=== PATIENT | female | born 1970 | race Hispanic/Latino ===

== ENCOUNTER 2018-08-30 08:37 | Day surgery (SDC) | payer OTHER ==
--- OUTSIDE RECORDS SUMMARY | 2018-08-30 08:40 | XMS REPORT ---
:1970 [facility] Address [address] [place] [address] Dr. Ragland [address] [place] [id number] Care Team Providers Name Role Phone Unavailable Unavailable Unavailable Problems This patient has no known problems. Allergies, Adverse Reactions, Alerts This patient has no known allergies or adverse reactions. Medications This patient has no known medications.
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
--- OUTSIDE RECORDS SUMMARY | 2018-08-30 08:40 | XMS REPORT ---
:1970 Author Organization eClinicalWorks Care Team Providers Name Role Phone Papito See Provider Role Unavailable Allergies, Adverse Reactions, Alerts Substance Reaction Event Type PCN Info Not Available Drug Allergy Problems Problem Type Condition Code Onset Dates Condition Status Assessment Acute cystitis without hematuria N30.00 Active Assessment Tobacco use disorder F17.200 Active Assessment BMI 22.0-22.9, adult Z68.22 Active Assessment Screening mammogram, encounter for Z12.31 Active Problem Tobacco use disorder F17.200 Active Problem Osteoarthritis of knee, unspecified M17.10 Active laterality, unspecified osteoarthritis type Problem Insomnia G47.00 Active Assessment Well adult on routine health check Z00.00 Active Assessment Need for influenza vaccination Z23 Active Problem Vaginal mass N94.89 Active Medications Medication Code Code Instructions Start End Date Status Dosage System Date Macrobid [facility] 53688895981 100 MG Orally Jun 19, Jun 04, Active 1 capsule every 12 hrs 2018 2018 with food Duexis [facility] 13456699674 800-26.6 MG Jun 19July 19, Active 1 tablet Orally Three 2019 2019 times a day Results Name Result Date Reference Range Unit Abnormality Flag Urine Dip Stick ----Appearance yellow clear 20180619 ----SP. Gr 1.010 20180619 ----pH 7.0 20180619 ----Ketone Neg 20180619 ----Glucose Neg 20180619 ----Blood Neg 20180619 ----Protein Neg 85655259 ----Nitrite Neg [id number] ----Leukocytes Neg [id number] Immunizations Vaccine Administration Date Afluria Jun 19, 2018 Summary Purpose eClinicalWorks Submission
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
--- OUTSIDE RECORDS SUMMARY | 2018-08-30 08:40 | XMS REPORT ---
:1970 Author Organization eClinicalWorks Care Team Providers Name Role Phone Papito See Provider Role Unavailable Allergies No Known Allergies Problems Problem Type Condition Code Onset Dates Condition Status Problem Insomnia G47.00 Active Problem Tobacco use disorder F17.200 Active Problem Severe anxiety with panic F41.0 Active Problem Osteoarthritis of knee, unspecified M17.10 Active laterality, unspecified osteoarthritis type Problem Vaginal mass N94.89 Active Medications No Known Medications Results No Known Results Summary Purpose eClinicalWorks Submission
--- OUTSIDE RECORDS SUMMARY | 2018-08-30 08:40 | XMS REPORT ---
:1970 Author Organization eClinicalWorks Care Team Providers Name Role Phone Hugo Graham Provider Role Unavailable Allergies No Known Allergies Problems Problem Type Condition Code Onset Dates Condition Status Problem Gastritis, presence of bleeding K29.70 Active unspecified, unspecified chronicity, unspecified gastritis type Problem Severe anxiety with panic F41.0 Active Problem Gastritis without bleeding, K29.70 Active unspecified chronicity, unspecified gastritis type Problem Insomnia G47.00 Active Problem Vaginal mass N94.89 Active Problem Tobacco use disorder F17.200 Active Problem Osteoarthritis of knee, unspecified M17.10 Active laterality, unspecified osteoarthritis type Medications No Known Medications Results No Known Results Summary Purpose [employer] Submission
--- OUTSIDE RECORDS SUMMARY | 2018-08-30 08:40 | XMS REPORT ---
:1970 Author Organization eClinicalWorks Care Team Providers Name Role Phone Esa Papito Provider Role Unavailable Allergies, Adverse Reactions, Alerts Substance Reaction Event Type PCN Info Not Available Drug Allergy Problems Problem Type Condition Code Onset Dates Condition Status Assessment Dysuria R30.0 Active Assessment Screening for STD (sexually Z11.3 Active transmitted disease) Problem Tobacco use disorder F17.200 Active Problem Osteoarthritis of knee, unspecified M17.10 Active laterality, unspecified osteoarthritis type Problem Insomnia G47.00 Active Assessment Influenza-like illness R69 Active Assessment Acute non-recurrent frontal J01.10 Active sinusitis Problem Vaginal mass N94.89 Active Medications Medication Code Code Instructions Start End Date Status Dosage System Date Azithromycin [facility] 15969715463 250 MG Orally Apr 30, May 05, Active 2 tablets Once a day 2017 2017 on the first day, then 1 tablet daily for 4 days Results Name Result Date Reference Range Unit Abnormality Flag URINALYSIS AUTO W/O SCOPE ----Blood (Non-Hemolyzed) Trace 20180430 ----Ketones Neg 20180430 ----Glucose (mg/dL) Neg 20180430 ----Protein (mg/dL) Neg 20180430 ----Specific Sharon 1.010 20180430 ----pH 6.0 20180430 ----Leukocytes Neg 20180430 ----Nitrite Neg 20180430 STREP A RAPID ----Result Negative 20180430 Summary Purpose eClinicalWorks Submission
--- OUTSIDE RECORDS SUMMARY | 2018-08-30 08:40 | XMS REPORT ---
:1970 Author Organization eClinicalWorks Care Team Providers Name Role Phone Hugo Graham Provider Role Unavailable Allergies, Adverse Reactions, Alerts Substance Reaction Event Type PCN Info Not Available Drug Allergy Problems Problem Type Condition Code Onset Dates Condition Status Assessment Gastritis without bleeding, K29.70 Active unspecified chronicity, unspecified gastritis type Assessment Vomiting, intractability of R11.10 Active vomiting not specified, presence of nausea not specified, unspecified vomiting type Assessment Epigastric abdominal pain R10.13 Active Problem Gastritis, presence of [...] Start End Date Status Dosage System Date Ondansetron HCl [facility] 00014882464 8 MG Orally Active as directed Famotidine [facility] 46526164383 20 MG Orally Active 1 tablet at Once a day bedtime Alprazolam ND 65313180299 0.25 MG Orally Active 1 tablet Twice a day PRN SEVERE ANXIETY Zoloft ND 22103741210 50 MG Orally Active 1 tablet Once a day Tramadol HCl ND 98903986184 50 MG Orally Active as directed Omeprazole ND 48698862082 40 MG Orally August Active 1 capsule Twice a day 2018 Protonix ND 12196843986 40 MG Orally August Active 1 tablet Once a day 2018 Probiotic [facility] 03109959238 - Orally Active as directed Carafate [facility] 38157657047 1 GM Orally August Active 1 tablet on Twice a day 2018 an empty stomach Dicyclomine HCl ND 83778079700 10 MG Orally Active 1 tablet Once a day Results No Known Results Summary Purpose eClinicalWorks Submission
--- OUTSIDE RECORDS SUMMARY | 2018-08-30 08:40 | XMS REPORT ---
:1970 Author Organization eClinicalWorks Care Team Providers Name Role Phone Papito See Provider Role Unavailable Allergies No Known Allergies Problems Problem Type Condition Code Onset Dates Condition Status Problem Tobacco use disorder F17.200 Active Problem Osteoarthritis of knee, unspecified M17.10 Active laterality, unspecified osteoarthritis type Problem Insomnia G47.00 Active Assessment Acute sinusitis, recurrence not J01.90 Active specified, unspecified location Problem Vaginal mass N94.89 Active Medications Medication Code Code Instructions Start End Date Status Dosage System Date Duexis [facility] 46008873569 800-26.6 MG Jun 19July 19, Active 1 tablet Orally Three 2018 2018 times a day Zithromax [facility] 86226155338 250 MG Orally Jul 15July 20, Active 2 tablets Once a day 2018 2018 on the first day, then 1 tablet daily for 4 days Results Name Result Date Reference Range Unit Abnormality Flag FLU TEST ----A Neg 20180715 ----B Neg [id number] STREP A RAPID ----Result Neg [id number] Summary Purpose eClinicalWorks Submission
[2018-08-30] MEDS ORDERED: Ringers Lactate 1,000 ML IV ONE (09:10)
[2018-08-30] MEDS ORDERED: FENTANYL CITR 100 MCG/2 ML ONE (09:38)
[2018-08-30] MEDS ORDERED: PROPOFOL 200 MG/20 ML VIAL IV ONE (09:38)
[2018-08-30] MEDS ORDERED: LIDOCAINE 1% MPF 2 ML AMPULE ONE (09:39)
--- NOTE | 2018-08-30 09:46 | ENDO RPT ---
[address], [address] EGD PROCEDURE REPORT EXAM DATE: 08/30/2018 PATIENT NAME: Stephania Lobo MR#: [id number] BIRTHDATE: 1970 ATTENDING: Hugo Graham DR STATUS: outpatient PAINT AND TABLE EDGER: Nadege Byrne RN and Luis Del Cid [facility] INDICATIONS: The patient is a 48 yr old Female here for an EGD due to epigastric pain and GERD PROCEDURE PERFORMED: EGD with biopsy for H. pylori MEDICATIONS: Per Anesthesia. TOPICAL ANESTHETIC: none CONSENT: The patient understands the risks and benefits of the procedure and understands that these risks include, but are not limited to: sedation, allergic reaction, infection, perforation and/or bleeding. Alternative means of evaluation and treatment include, among others: physical exam, x-rays, and/or surgical intervention. The patient elects to proceed with this endoscopic procedure. DESCRIPTION OF PROCEDURE: During intra-op preparation period all mechanical medical equipment was checked for proper function. Hand hygiene and appropriate measures for infection prevention was taken. Procedure, possible complications, and alternatives including but not limited to the possibility of bleeding, perforation, tear, infection, sepsis, need for surgery, need for blood transfusion, and anesthesia related complications were explained to the patient. After the risks, benefits and alternatives of the procedure were thoroughly explained, Informed consent was verified, confirmed and timeout was successfully executed by the treatment team. The patient was placed in the left lateral position. The patient was anesthetized with topical anesthesia. Through the anesthetized oropharyngeal area, the scope was passed without any difficulty. The Pentax [id number] ([id number]) endoscope was introduced through the mouth and advanced to the second portion of the duodenum. Retroflexed views revealed a small hiatal hernia. The gastroscope was then slowly withdrawn and removed. Mild Atrophic gastritis was found in the body and the antrum of the stomach. A biopsy for H. pylori was taken. An erosion was found at the pylorus. A biopsy for H. pylori was taken. A small hiatal hernia was found ADVERSE EVENTS: There were no complications. IMPRESSIONS: 1. Mild Atrophic gastritis was found in the body and the antrum of the stomach 2. An erosion was found at the pylorus 3. A small hiatal hernia was found RECOMMENDATIONS: 1. acid suppression therapy 2. anti-reflux regimen 3. await biopsy results 4. follow-up: office 2 week(s) 5. avoid NSAIDS 6. follow-up of helicobacter pylori status, treat if indicated REPEAT EXAM: Hugo Graham DR eSigned: Hugo Graham DR 08/30/2018 9:45 AM cc: CPT CODES: ICD9 CODES: PATIENT NAME: Stephania LoboGary MR#: [id number]
[2018-08-30 10:26] VITALS: BP 121/70; TEMP 98.3; O2SAT 100
== END 2018-08-30 10:21 | disposition home or self-care (01) ==
LOC: OR 08:37
PROVIDERS: ATTEND Surgery
PROC: 0DB78ZX Excision of Stomach, Pylorus, Via Natural or Artificial Opening Endoscopic, Diagnostic (ICD-10-PCS; 2018-08-30)
PROC: 0DB68ZX Excision of Stomach, Via Natural or Artificial Opening Endoscopic, Diagnostic (ICD-10-PCS; 2018-08-30)
PROC: 0DB98ZX Excision of Duodenum, Via Natural or Artificial Opening Endoscopic, Diagnostic (ICD-10-PCS; principal; 2018-08-30 10:00)
DX: K29.50 Unspecified chronic gastritis without bleeding (principal); K44.9 Diaphragmatic hernia without obstruction or gangrene; K25.9 Gastric ulcer, unspecified as acute or chronic, without hemorrhage or perforation; F17.200 Nicotine dependence, unspecified, uncomplicated
CPT/HCPCS: 88305; 88312; J2001; J2704; J3010

== ENCOUNTER 2020-07-01 08:18 | Emergency (ER) | payer OTHER, SELFPAY ==
[2020-07-01] MEDS ORDERED: CEFTRIAXONE/SWI 1gm 1 GM/10 ML SYR ONE (09:04)
[2020-07-01] MEDS ORDERED: NA CHLORIDE 0.9% 500 ML ONE (09:04)
[2020-07-01] MEDS ORDERED: MORPHINE 2 MG/ML SYR ONE (09:04)
[2020-07-01] MEDS ORDERED: ONDANSETRON 4 MG/2 ML VIAL ONE (09:04)
[2020-07-01 09:15] LABS: Absolute Lymphocytes (CBC) 2.9 K/uL (0.7-4.9); Basophils % 0.4 % (0-1.3); Hematocrit 38.4 % (36.0-45.0); Lymphocytes % 24.1 % (15.3-44.8); MPV 7.7 fL (7.6-11.3)
--- NOTE | 2020-07-01 09:25 | RAD REPORT ---
EXAM DESCRIPTION: CTAbdomen Pelvis W Contrast - 07/01/2020 9:05 am CLINICAL HISTORY: Abdominal pain. ABD PAIN COMPARISON: Abdomen Pelvis W Contrast dated 09/15/2016; CT ABD PELVIS W CONTRAST dated 05/02/2012 TECHNIQUE: Biphasic CT imaging of the abdomen and pelvis was performed with 100 ml non-ionic IV cont rast. All CT scans are performed using dose optimization technique as appropriate and may include automated exposure control or mA/KV adjustment according to patient size. FINDINGS: The lung bases are clear. The liver, spleen, pancreas, adrenal glands and kidneys are within normal limits. No bowel obstruction, free air, free fluid or abscess. Moderate stool is present throughout the colon . The appendix is normal. No evidence of significant lymphadenopathy. No suspicious bony findings. IMPRESSION: No acute intra-abdominal or pelvic finding. Moderate stool is retained throughout the colon.
[2020-07-01 09:46] LABS: Urine Blood TRACE (NEG); Urine Glucose NEGATIVE (NEG); Urine Protein NEGATIVE (NEG); Urine Specific Gravity 1.015 (1.005-1.030)
[2020-07-01 09:49] LABS: BUN Blood Urea Nitrogen 13 mg/dL (7-18); Bicarbonate 27 mmol/L (21-32); Glucose Level 95 mg/dL (74-106); Potassium 3.9 mmol/L (3.5-5.1); Sodium Level 141 mmol/L (136-145)
[2020-07-01 09:55] LABS: Urine Bacteria <20 /HPF (<20); Urine RBC <5 /HPF (NONE SEEN)
[2020-07-01 09:56] LABS: Urine Trichomonas PRESENT (NONE SEEN)
--- NOTE | 2020-07-01 10:05 | EDPHYS ---
Physician Documentation [facility] Name: Stephania Lobo Age: 49 yrs Sex: Female : 1970 Arrival Date: 07/01/2020 Time: 08:20 Bed 6 Private MD: Esa [facility] ED Physician Bronson Guevara HPI: 07/01 08:45 This 49 yrs old Female presents to ER via Ambulatory with complaints of kdr Possible UTI. 08:45 The patient was treated for a UTI about two weeks ago with Cipro but never felt she kdr fully recovered. In the last week, she reports fever (101), shaking chills, nausea, vomiting, low abdomen and bilateral flank pain. Onset: The symptoms/episode began/occurred gradually, 2 week(s) ago. Severity of symptoms: At their worst the symptoms were moderate in the emergency department the symptoms are unchanged. The patient has not experienced similar symptoms in the past. The patient has been recently seen by a physician: the patient's primary care provider, Dr. See. Historical: - Allergies: 08:32 PENICILLINS; aa5 - Home Meds: 08:32 None [Active]; aa5 - PMHx: 08:32 None; aa5 - PSHx: 08:32 Hysterectomy; aa5 - Immunization history:: Adult Immunizations up to date. - Social history:: Smoking status: Patient denies any tobacco usage or history of. ROS: 08:45 Constitutional: Negative for weight loss - has had fever and chills Eyes: Negative for kdr injury, pain, redness, and discharge, ENT: Negative for injury, pain, and discharge, Neck: Negative for injury, pain, and swelling, Cardiovascular: Negative for chest pain, palpitations, and edema, Respiratory: Negative for shortness of breath, cough, wheezing, and pleuritic chest pain, MS/Extremity: Negative for injury and deformity, Skin: Negative for injury, rash, and discoloration, Neuro: Negative for headache, weakness, numbness, tingling, and seizure activity. Psych: Negative for depression, anxiety, suicide ideation, homicidal ideation, and hallucinations, Allergy/Immunology: Negative for hives, rash, and allergies, Endocrine: Negative for neck swelling, polydipsia, polyuria, polyphagia, and marked weight changes, Hematologic/Lymphatic: Negative for swollen nodes, abnormal bleeding, and unusual bruising. 08:45 Abdomen/GI: Positive for abdominal pain, nausea and vomiting, Negative for constipation, abdominal cramps, abdominal distension, anorexia, dysphagia, hematemesis, black/tarry stool, rectal pain, rectal bleeding. 08:45 Back: Positive for pain at rest, of the left mid back and right mid back. 08:45 : Positive for urinary symptoms, flank pain, urinary frequency, small amounts, burning with urination. Exam: 08:45 Constitutional: This is a well developed, well nourished patient who is awake, alert, kdr and in no acute distress. Head/Face: Normocephalic, atraumatic. Eyes: Pupils equal round and reactive to light, extra-ocular motions intact. Lids and lashes normal. Conjunctiva and sclera are non-icteric and not injected. Cornea within normal limits. Periorbital areas with no swelling, redness, or edema. Neck: Trachea midline, no thyromegaly or masses palpated, and no cervical lymphadenopathy. Supple, full range of motion without nuchal rigidity, or vertebral point tenderness. No Meningismus. Chest/axilla: Normal chest wall appearance and motion. Nontender with no deformity. No lesions are appreciated. Cardiovascular: Regular rate and rhythm with a normal S1 and S2. No gallops, murmurs, or rubs. Normal PMI, no JVD. No pulse deficits. Respiratory: Lungs have equal breath sounds bilaterally, clear to auscultation and percussion. No rales, rhonchi or wheezes noted. No increased work of breathing, no retractions or nasal flaring. Skin: Warm, dry with normal turgor. Normal color with no rashes, no lesions, and no evidence of cellulitis. MS/ Extremity: Pulses equal, no cyanosis. Neurovascular intact. Full, normal range of motion. Neuro: Awake and alert, GCS 15, oriented to person, place, time, and situation. Cranial nerves II-XII grossly intact. Motor strength 5/5 in all extremities. Sensory grossly intact. Cerebellar exam normal. Normal gait. Psych: Awake, alert, with orientation to person, place and time. Behavior, mood, and affect are within normal limits. 08:45 Abdomen/GI: Inspection: abdomen appears normal, Bowel sounds: active, Palpation: soft, mild abdominal tenderness, in the suprapubic area, right lower quadrant and left lower quadrant. 08:45 Back: pain, that is mild, of the left mid back and right mid back, CVA tenderness, that is mild, is noted bilaterally. Vital Signs: 08:22 BP 105 / 76; Pulse 78; Resp 16 S; Temp 98.7(O); Pulse Ox 98% on R/A; aa5 09:16 BP 110 / 89; Pulse 68; Resp 16; Pulse Ox 100% on R/A; bp 10:24 BP 97 / 64; Pulse 58; Resp 17; Temp 98; Pulse Ox 100% ; bp MDM: 08:45 Differential Diagnosis sepsis, UTI, Pyelo. Data reviewed: vital signs, nurses notes, kdr lab test result(s), radiologic studies. Counseling: I had a detailed discussion with the patient and/or guardian regarding: the historical points, exam findings, and any diagnostic results supporting the discharge/admit diagnosis, lab results, radiology results. 10:04 Patient medically screened. [facility] 07/01 08:38 Order name: Urine Dipstick--Ancillary (enter results); Complete Time: 09:54 em1 07/01 08:38 Order name: Urine --Ancillary (enter results); Complete Time: 09:54 em1 07/01 08:41 Order name: CBC with Diff kdr 07/01 08:41 Order name: Chem 7; Complete Time: 09:54 kdr 07/01 08:42 Order name: CBC with Automated Diff; Complete Time: 09:54 EDMS 07/01 08:47 Order name: Blood Culture Adult (2) jl7 07/01 08:41 Order name: CT Abd/Pelvis - IV Contrast Only; Complete Time: 09:54 kdr 07/01 09:00 Order name: Strep; Complete Time: 09:54 kdr 07/01 09:03 Order name: Urine Culture bp 07/01 09:03 Order name: Urine Microscopic Only; Complete Time: 10:00 bp 07/01 09:51 Order name: Throat Culture EDMS Administered Medications: 09:10 Drug: morphine 2 mg Route: IVP; Site: right antecubital; bp 09:10 Drug: Zofran (Ondansetron) 4 mg Route: IVP; Site: right antecubital; bp 09:10 Drug: Rocephin 1 grams Route: IV; Rate: calculated rate; Site: right antecubital; bp 09:10 Drug: NS 0.9% 500 ml Route: IV; Rate: bolus; Site: right antecubital; bp 10:10 Drug: Flagyl 2 grams Route: PO; bp 10:23 Follow up: Response: No adverse reaction bp Disposition: 07/01/20 10:04 Discharged to Home. Impression: Urinary tract infection, site not specified, Trichomoniasis, Abdominal and pelvic pain. - Condition is Stable. - Discharge Instructions: Dysuria, Trichomoniasis, Urinary Tract Infection, Adult, Zazs-pr-Hmsd, Abdominal Pain, Adult, [id number]. - Prescriptions for Zofran 4 mg Oral Tablet - take 1 tablet by ORAL route every 4-6 hours As needed; 12 tablet. Tramadol 50 mg Oral Tablet - take 1 tablet by ORAL route every 4-6 hours as needed; 12 tablet. Bactrim DS 800- 160 mg Oral Tablet - take 1 tablet by ORAL route every 12 hours for 10 days; 20 tablet. - Medication Reconciliation Form, Thank You Letter, Antibiotic Education, Prescription Opioid Use, Work release form form. - Follow up: Papito See DO; When: 2 - 3 days; Reason: If symptoms return, Further diagnostic work-up, Recheck today's complaints, Continuance of care, Re-evaluation by your physician. - Problem is new. - Symptoms have improved. Signatures: Dispatcher [employer] EDMS Bronson Guevara MD MD [facility] Mira Marie RN RN aa5 Av Soto RN RN bp Corrections: (The following items were deleted from the chart) 09:47 09:01 Influenza Screen (A \T\ B)+BA.LAB.BRZ ordered. EDMS EDMS 09:47 09:01 CORONAVIRUS+MR.LAB.BRZ ordered. EDMS EDMS 10:26 10:04 07/01/2020 10:04 Discharged to Home. Impression: Urinary tract infection, site bp not specified; Trichomoniasis; Abdominal and pelvic pain. Condition is Stable. Forms are Medication Reconciliation Form, Thank You Letter, Antibiotic Education, Prescription Opioid Use. Follow up: Papito See; When: 2 - 3 days; Reason: If symptoms return, Further diagnostic work-up, Recheck today's complaints, Continuance of care, Re-evaluation by your physician. Problem is new. Symptoms have improved. kdr
--- NOTE | 2020-07-01 10:05 | ER ---
Nurse's Notes [facility] Name: Stephania Lobo Age: 49 yrs Sex: Female : 1970 Arrival Date: 07/01/2020 Time: 08:20 Bed 6 Private MD: Papito See Diagnosis: Urinary tract infection, site not specified;Trichomoniasis;Abdominal and pelvic pain Presentation: 07/01 08:21 Chief complaint: Patient states: "I had a UTI [address] See gave me Cipro aa5 but ever since then I haven't felt back to normal". Pt c/o suprapubic pain radiating around to lower back, chills, fever up to 101.0*F, nausea/vomiting, urinary urgency/frequency/burning. Pt reports taking Ibuprofen today at 0600. 08:21 Coronavirus screen: chills, headache, nausea, vomiting. Ebola Screen: Patient negative aa5 for fever greater than or equal to 101.5 degrees Fahrenheit, and additional compatible Ebola Virus Disease symptoms. Initial Sepsis Screen: Does the patient meet any 2 criteria? No. Patient's initial sepsis screen is negative. Does the patient have a suspected source of infection? Yes:. Risk Assessment: Do you want to hurt yourself or someone else? Patient reports no desire to harm self or others. Onset of symptoms was 2020. 08:21 Acuity: ANA 3 aa5 08:21 Method Of Arrival: Ambulatory aa5 Triage Assessment: 08:30 General: Appears distressed, uncomfortable, Behavior is cooperative, appropriate for bp age, anxious. Pain: Complains of pain in pelvis. EENT: No deficits noted. Neuro: No deficits noted. Cardiovascular: No deficits noted. Respiratory: No deficits noted. GI: No signs and/or symptoms were reported involving the gastrointestinal system. : Reports burning with urination. Derm: No deficits noted. Musculoskeletal: No deficits noted. Historical: - Allergies: 08:32 PENICILLINS; aa5 - Home Meds: 08:32 None [Active]; aa5 - PMHx: 08:32 None; aa5 - PSHx: 08:32 Hysterectomy; aa5 - Immunization history:: Adult Immunizations up to date. - Social history:: Smoking status: Patient denies any tobacco usage or history of. Screenin:30 Abuse screen: Denies threats or abuse. Denies injuries from another. Nutritional bp screening: No deficits noted. Tuberculosis screening: No symptoms or risk factors identified. Fall Risk None identified. Assessment: 08:30 General: SEE TRIAGE NOTE. 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 bp 09:10 Reassessment: No changes from previously documented assessment. Patient and/or family bp updated on plan of care and expected duration. Pain level reassessed. Patient is alert, oriented x 3, equal unlabored respirations, skin warm/dry/pink. PT RETURNED FROM CT. 2ND BLOOD CX SENT, ABX STARTED. 10:24 Reassessment: PT D/C HOME AMBULATORY, DX WITH UTI. bp Vital Signs: 08:22 BP 105 / 76; Pulse 78; Resp 16 S; Temp 98.7(O); Pulse Ox 98% on R/A; aa5 09:16 BP 110 / 89; Pulse 68; Resp 16; Pulse Ox 100% on R/A; bp 10:24 BP 97 / 64; Pulse 58; Resp 17; Temp 98; Pulse Ox 100% ; bp ED Course: 08:20 Patient arrived in ED. ag5 08:20 Papito See DO is Private Physician. ag5 08:21 Arm band placed on Patient placed in an exam room, on a stretcher. aa5 08:27 Av Soto, RN is Primary Nurse. bp 08:27 Bronson Guevara MD is Attending Physician. kdr 08:30 Inserted saline lock: 22 gauge in right antecubital area, using aseptic technique. bp Blood collected. 08:32 Triage completed. aa5 08:39 Patient has correct armband on for positive identification. Bed in low position. Call [facility] light in reach. Side rails up X 1. Pulse ox on. NIBP on. 08:39 Urine collected: clean catch specimen, cloudy. mh5 08:55 Initial lab(s) drawn, by ma, sent to lab. First set of blood cultures drawn by ma, [facility] COVID swab sent to lab. Flu and/or RSV swab sent to lab. Strep swab sent to lab. 09:02 Blood Culture Adult (2) Sent. [facility] 09:02 CBC with Automated Diff Sent. [facility] 09:02 Chem 7 Sent. mh5 09:02 CBC with Diff Sent. [facility] 09:02 Urine --Ancillary (enter results) Sent. [facility] 09:02 Urine Dipstick--Ancillary (enter results) Sent. 5 09:04 Inserted saline lock: 22 gauge in right antecubital area, using aseptic technique. [facility] Blood collected. 09:08 CT Abd/Pelvis - IV Contrast Only In Process Unspecified. EDMS 09:16 Strep Sent. [facility] 10:03 Papito See DO is Referral Physician. kdr 10:25 No provider procedures requiring assistance completed. IV discontinued, intact, bp bleeding controlled, No redness/swelling at site. Pressure dressing applied. Administered Medications: 09:10 Drug: morphine 2 mg Route: IVP; Site: right antecubital; bp 09:10 Drug: Zofran (Ondansetron) 4 mg Route: IVP; Site: right antecubital; bp 09:10 Drug: Rocephin 1 grams Route: IV; Rate: calculated rate; Site: right antecubital; bp 09:10 Drug: NS 0.9% 500 ml Route: IV; Rate: bolus; Site: right antecubital; bp 10:10 Drug: Flagyl 2 grams Route: PO; bp 10:23 Follow up: Response: No adverse reaction bp Outcome: 10:04 Discharge ordered by MD. kdr 10:25 Discharged to home ambulatory. bp 10:25 Condition: stable 10:25 Discharge instructions given to patient, Instructed on discharge instructions, follow up and referral plans. medication usage, Demonstrated understanding of instructions, follow-up care, medications, Prescriptions given X 3. 10:26 Patient left the ED. bp Addendum: 07/04/2020 07:18 Addendum: Culture Results: Positive urine culture. No further action required. Bacteria e b sensitive to prescribed antibiotic. Signatures: Dispatcher [employer] [facility] Bronson Guevara MD MD [facility] Mira Marie, RN RN aa5 Sheridan Zavala [address] S[address], ELAINE RN Lilibeth Davidson Ajare ag5 Corrections: (The following items were deleted from the chart) 07/01 09:47 09:16 CORONAVIRUS+MR.LAB.BRZ drawn and sent. [facility] EDNJ 09:47 09:16 Influenza Screen (A \\T\\ B)+BA.LAB.BRZ drawn and sent. mh5 EDMS 10:25 09:16 Pulse 68bpm; Resp 16bpm; Pulse Ox 100% RA; bp bp
[2020-07-01 10:26] LABS: SARS-COV-2 RT PCR NEGATIVE (NEGATIVE)
[2020-07-01] MEDS ORDERED: metroNIDAZOLE 500 MG TABLET ONE (10:30)
[2020-07-01 10:32] VITALS: O2SAT 100
[2020-07-01 10:33] VITALS: BP 97/64; TEMP 98
== END 2020-07-01 10:26 | disposition home or self-care (01) ==
LOC: ER 08:18
DX: N39.0 Urinary tract infection, site not specified (principal); A59.9 Trichomoniasis, unspecified; Z88.0 Allergy status to penicillin
CPT/HCPCS: 0240U; 36415; 74177; 80048; 81003; 81015; 81025; 82565; 85025; 87040; 87070; 87077; 87081; 87086; 87088; 87186; 96374; 96375; 99284; J0696; J2270; J2405; J7040; Q9967

== ENCOUNTER 2022-12-04 18:02 | Emergency (ER) | payer SELFPAY ==
--- OUTSIDE RECORDS SUMMARY | 2022-12-04 18:07 | XMS REPORT | Continuity of Care Document ---
:1970 Author Organization [facility] t Address [address] [place] [address] [place] [id number] Care Team Providers Name Role Phone JUAN SEE Primary Care Physician Unavailable Juan See Attending Clinician Unavailable Maggie CATHERINE Attending Clinician Unavailable Maggie Schwartz Attending Clinician HOANG ALFARO Attending Clinician Unavailable ALESIA LECHUGA Attending Clinician Unavailable Alesia Lechuga NP Attending Clinician MEHREEN MARIE Attending Clinician Unavailable Mehreen Smith S Attending Clinician RICHARDSON THOMPSON Attending Clinician Unavailable Richardson Thompson DO Attending Clinician Doctor Unassigned, [place] Attending Clinician Unavailable ARIANNE CHILDRESS Attending Clinician Unavailable Arianne Childress MD Attending Clinician RONIT SANTIAGO Attending Clinician Unavailable Ronit Hare Attending Clinician BRENNA SAMUEL Attending Clinician Unavailable Brenna Samuel MD Attending Clinician [phone] ISABELL VALDES Attending Clinician Unavailable DAYANNA HANNON Attending Clinician Unavailable Dayanna Hannon MD Attending Clinician DELL NOBLE Attending Clinician Unavailable Dell Noble MD Attending Clinician DANIEL CHAU Attending Clinician Unavailable Kavon MACHINE I ENGRAVER, Daniel Attending Clinician Jose Juan MACHINE I ENGRAVER, Jennifer Attending Clinician Onur Goldstein MD Attending Clinician Hernan HENRY, Glenis Clifton Attending Clinician Unavailable CLIVE TRAN Attending Clinician Unavailable Manfred BOURGEOIS, Atif Attending Clinician Chelsea MACHINE I ENGRAVER, Clive N Attending Clinician Maddie HENRY, Delia Attending Clinician Unavailable Carlo HENRY, Tessa Attending Clinician Unavailable Isaac Reynolds MD Attending Clinician ALESIA LECHUGA Admitting Clinician Unavailable ARIANNE CHILDRESS Admitting Clinician Unavailable BRENNA SAMUEL Admitting Clinician Unavailable DAYANNA HANNON Admitting Clinician Unavailable DELL NOBLE Admitting Clinician Unavailable Angelita BEARD, Onur Admitting Clinician RICHARDSON THOMPSON Admitting Clinician Unavailable Payers Payer Name Policy Type Policy Number Effective Date Expiration Date S melany ALL MAURO [id number] 2018 00:00:00 [place]ICAID OF [place] [id number] 2022 00:00:00 Problems Condition Condition Condition Status Onset Resolution Last Treating Co mments Source Name Details Category Date Date Treatment Clinician Date History of History of Disease Active 2021-0 U nivers bilateral bilateral 6-14 ity of tubal tubal 00:00: [place] ligation ligation 00 Medica l Branch BMI BMI Disease Active 2021-0 Univers 25.0-25.9, 25.0-25.9, 6-14 it y of adult adult 00:00: [place] [address] Medical [place] BMI BMI Disease Active 2021-0 Univers 25.0-25.9, 25.0-25.9, 6-14 it y of adult adult 00:00: [address] Enteritis Enteritis Disease Active 2020-05 Uni vers 0-21 ity of 00:00: [address] Dysuria Dysuria Disease Active 2019-05 Univers 1-12 ity of 00:00: [address] Positive Positive Disease Active 2019-05 Unive rs depression depression 1-12 it y of screening screening 00:00: [address] S/P S/P Disease Active Univers hysterecto hysterecto 2-17 it y of my my 00:: [place] [facility] Smoker Smoker Disease Active 2012-05 Univers 2-20 ity of 00:: [place] [facility] Well woman Well woman Disease Active 2012-05 U nivers exam exam 0-23 ity of 00:: [address] Vaginal Vaginal Problem Active Common mass mass Spirit [facility] [id number] Gastritis Problem Active Commo n without Spirit bleeding, - [facility] unspecifie [facility] chronicity Medica l , Center unspecifie d gastritis type Insomnia Insomnia Problem Active Commo n [facility] Osteoarthr Osteoarthr Problem Active C ommon itis of itis of [place] knee knee, - [facility] unspecifie [facility] laterality Medica l , Center unspecifie d osteoarthr itis type Tobacco Tobacco Problem Active Common use use Spirit disorder [facility] [id number] Severe Problem Active Common anxiety Spirit with panic [facility] Allergies, Adverse Reactions, Alerts Allergy Allergy Status Severity Reaction(s) Onset Inactive Treating Comm ents Source Name Type Date Date Clinician NO KNOWN Drug Active Univers ALLERGIE Class ity of S [facility] Social History Social Habit Start Date Stop Date Quantity Comments Source History of Tobacco Current Smoker Co mmon Spirit - Use [facility] Sex Assigned At Common Sp mady - [facility] History SDOH University o f Alcohol Frequency [facility] edical Branch History SDUT University o f Alcohol Std Drinks [facility] History [facility] University o f Alcohol Binge [facility] [place] al Branch Exposure to 2022-10-07 2022-10-17 Not sure University of SARS-CoV-2 (event) 00:00:00 17:31:00 [facility] Alcohol intake 2022-10-17 2022-10-17 Current drinker Unive rsity of 00:00:00 00:00:00 of alcohol [facility] (finding) Branch Tobacco use and 2020-04-01 2020-04-01 Smokeless tobacco Un iversity of exposure 00:00:00 00:00:00 non-user [facility] Tobacco Comment 2020-04-01 2020-04-01 3-4 cigarretes Unive rsity of 00:00:00 00:00:00 per day [facility] Cigarettes smoked 2020-04-01 2020-04-01 Univers ity of current (pack per 00:00:00 00:00:00 ) - Reported Branch Cigarette 2020-04-01 2020-04-01 University of pack-years 00:00:00 00:00:00 [facility] Alcohol Comment 2013-03-12 2013-03-12 on occasion Universi ty of 00:00:00 00:00:00 [facility] Smoking Status Start Date Stop Date Source Smokes tobacco daily 2020-04-01 00:00:00 Univers ity of [facility] Medications Ordered Filled Start Stop Current Ordering Indication Dosage Frequency Signature Comments Components Source Medication Medication Date Date Medication? Clinician (SIG) Name Name phenazopyri No 200mg 200 mg, U nivers dine 10-18 Oral, ity of (PYRIDIUM) 01:15: 01:19 ONCE, 1 [place] tablet 200 00 :00 dose, On Medic al mg [facility] 10/17/22 at 2014, ANCELMO cefTRIAXone 2022- No 1000mg 1,000 mg, Univers (ROCEPHIN) 10-18 IV ity of 1,000 mg in 01:15: 01:49 [place], [place] NaCl 0.9% 00 :00 ONCE, 1 Medical (NS) 100 mL dose, On Bran ch MINI-BAG [facility] 10/17/22 at 2014, Administer over 30 Minutes, 100 mL
Reas on for Anti-Infec tive: Documented Infection< br>Documen colby Infection Site: Urine<br&g t;Duration of Therapy: Other (see Comments) NaCl 0.9% 2022- No 1000mL at 999 Uni vers (NS) bolus 10-18 mL/hr, ity of infusion 00:45: 00:54 1,000 mL, [place] as 1,000 mL 00 :00 IV Medical Infusion, Branch ONCE, 1 dose, On [facility] 10/17/22 at 1945, STAT ondansetron 2022-0 2022- No 4mg 4 mg, Slow Univers (ZOFRAN 5-31 05-30 IV Push, ity of (PF)) 00:45: 23:56 ONCE, 1 [place] injection 4 00 :00 dose, On Medi delisa mg Tue Branch 10/17/22 at 1945, ANCELMO ibuprofen 2022-0 2022- No 600mg 600 mg, Uni vers (IBU) 5-30 05-30 Oral, ity of tablet 600 23:45: 23:56 ONCE, 1 [place] mg 00 :00 dose, On Medical Tue Branch 10/17/22 at 1845, ANCELMO ondansetron 2022-0 Yes [id number] 4mg Take 1 Univers 4 mg 5-30 tablet by ity of disintegrat 00:00: mouth [place] ing tablet 00 every 8 Medica l (eight) Branch hours as needed for Nausea and Vomiting (N/V). ibuprofen 2022-0 Yes [id number] 600mg Take 1 U nivers 600 mg 5-30 tablet by ity of tablet 00:00: mouth [place] 00 every 6 Medical (six) Branch hours as needed for Pain (scale 4-6). cefdinir 2022-0 2022- Yes [id number] 300mg Take 1 U nivers 300 mg 5-30 06-10 capsule by ity of capsule 00:00: 04:59 mouth [place] 00 :00 every 12 Medical (twelve) Branch hours for 10 days. acetaminoph 2022-0 2022- No 650mg 650 mg, U nivers en 08-06-19 Oral, ity of (TYLENOL) 07:15: 07:18 ONCE, 1 [place] tablet 650 00 :00 dose, On Medic al mg Sun Branch 08/06/22 at 0215, ANCELMO SERTraline 2022-0 Yes 50mg Take 1 Unive rs (ZOLOFT) 50 3-19 tablet by ity of mg tablet 03:25: [place] 57 the Medical morning. Branch ALPRAZolam 2022-0 Yes .25mg Take 1 Univ ers 0.25 mg 3-19 tablet by ity of tablet 03:25: mouth 2 [place] 57 (two) Medical times Branch daily as needed for Anxiety. SERTraline 2022-0 Yes 50mg Take 1 Unive rs (ZOLOFT) 50 3-19 tablet by ity of mg tablet 03:25: mouth in [facility] the Medical morning. Branch ALPRAZolam Yes .25mg Take 1 Univ ers 0.25 mg 3-19 tablet by ity of tablet 03:25: mouth 2 [place] 57 (two) Medical times Branch daily as needed for Anxiety. ibuprofen 0 Yes [id number] 600mg Take 1 Univers 600 mg 3-19 [id number] tablet by ity of tablet 00:00: mouth [place] 00 every 6 Medical (six) Branch hours as needed for Pain (scale 4-6) or Pain (scale 1-3). ibuprofen Yes [id number] 600mg Take 1 Univers 600 mg 3-19 [id number] tablet by ity of tablet 00:00: mouth [place] 00 every 6 Medical (six) Branch hours as needed for Pain (scale 4-6) or Pain (scale 1-3). acetaminoph 2022- No 1000mg 1,000 mg, Univers en 07-20 Oral, ity of (TYLENOL) 09:15: 08:15 ONCE, 1 [place] tablet 00 :00 dose, On Medical 1,000 mg [facility] 07/20/22 Bran h at 0315, Routine maalox:diph 2022- No 15mL 15 mL, Uni vers enhydrAMINE 07-20 Oral, ity of :lidocaine 08:15: 08:16 ONCE, 1 [place] 2 % viscous 00 :00 dose, On [facility] delisa 1:1:1 [facility] 07/20/22 Branch (FIRST-MOUT at 0215, [facility]) Routine oral suspension 15 mL NaCl 0.9% 2022- No 1000mL at 999 Uni vers (NS) bolus 07-20 mL/hr, ity of infusion 07:30: 08:14 1,000 mL, [place] as 1,000 mL 00 :00 IV Medical Infusion, Branch ONCE, 1 dose, On [facility] 07/20/22 at 0130, STAT ondansetron 2022- No 4mg 4 mg, Slow Univers (ZOFRAN 07-20 IV Push, ity of (PF)) 06:30: 06:33 ONCE, 1 [place] injection 4 00 :00 dose, On [facility] delisa mg Beatriz 07/20/22 Branch at 0030, ANCELMO amoxicillin 3-0 Yes [id number] 1{tbl} Take 1 Univers -clavulanat 3-02 tablet by ity of e 875-125 00:00: mouth [place] mg per 00 every 12 Medical tablet (twelve) Branch hours. ondansetron 3-0 Yes [id number] 4mg Take 1 Univers 4 mg 3-02 tablet by ity of disintegrat 00:00: mouth [place] ing tablet 00 every 8 Medica l (eight) Branch hours as needed for Nausea and Vomiting (N/V). amoxicillin 2022-0 2022- No [id number] 1{tbl} Take 1 Univers -clavulanat 3-02 03-19 tablet by it y of e 875-125 00:00: 00:00 mouth [place] mg per 00 :00 every 12 Medical tablet (twelve) Branch hours. ondansetron 2022-0 3- No [id number] 4mg Take 1 Univers 4 mg 3-02 03-19 tablet by ity of disintegrat 00:00: 00:00 [place] tablet 00 :00 every 8 Medica l (eight) Branch hours as needed for Nausea and Vomiting (N/V). phenazopyri 2022-0 2022- No 200mg 200 mg, U nivers dine 05-23 Oral, ity of (PYRIDIUM) 17:15: 17:15 ONCE, 1 [place] tablet 200 00 :00 dose, On Medic al mg 05/23/22 Branch at 1115, ANCELMO phenazopyri 2022-0 Yes [id number] 200mg Take 1 Univers dine 200 mg 1-03 tablet by ity of tablet 00:00: mouth in [place] 00 the Medical morning Branch and 1 tablet at noon and 1 tablet in the evening. phenazopyri 2023-0 Yes [id number] 200mg Take 1 Univers dine 200 mg 1-03 tablet by ity of tablet 00:00: mouth in [place] 00 the Medical morning Branch and 1 tablet at noon and 1 tablet in the evening. phenazopyri 2023-0 2023- No [id number] 200mg Take 1 Univers dine 200 mg 05-23-19 tablet by it y of tablet 00:00: 00:00 mouth in [place] 00 :00 the Medical morning Branch and 1 tablet at noon and 1 tablet in the evening. cephALEXin 2022- No [id number] 500mg Take 1 Univers (KEFLEX) 05-23 capsule by ity of 500 mg 00:00: 05:59 mouth in [place] capsule 00 :00 the Medical morning Branch and 1 capsule at noon and 1 capsule in the evening. Do all this for 7 days. piperacilli 2021-05- No 3.375g 3.375 g, Univers n-tazobacta 0-25 10-25 IV ity of m (ZOSYN) 00:00: 00:43 [place] 3.375 g in 00 :00 ONCE, 1 Medica l NaCl 0.9% dose, On Branch (NS) 50 mL [facility] MINI-BAG 03/13/22 at 1900, Administer over 30 Minutes, 50 mL
Reas on for Anti-Infec tive: Documented Infection< br>Documen colby Infection Site: Abdominal< br>Duratio n of Therapy: 10 days iopamidol 2021-05- No [id number] 70mL 70 mL, U nivers (ISOVUE 0-24 10-24 Intravenou ity o f 370-500 mL) 23:30: 23:30 s, ONCE, 1 [place] injection 00 :00 dose, On Medica l 70 mL [facility] 03/13/22 at 1830, Routine ketorolac 2021-05- No 15mg 15 mg, Unive rs (TORADOL) 0-24 10-24 Slow IV ity of injection 22:00: 21:33 [place], [place] 15 mg 00 :00 ONCE, 1 Medical dose, On Branch [facility] 03/13/22 at 1700, Routine ondansetron 2021-05 Yes [id number] 4mg Take 1 Univers (ZOFRAN) 4 0-24 tablet by ity of mg tablet 00:00: mouth [place] 00 every 8 Medical (eight) Branch hours as needed for Nausea and Vomiting (N/V). traMADoL 50 2021-05 Yes [id number] 50mg Take 1 Univ ers mg tablet 0-24 tablet by ity o f 00:00: mouth [place] every 6 Medical (six) Branch hours as needed for Pain (scale 7-10). Indication s: acute pain ondansetron 2021-05 Yes [id number] 4mg Take 1 Univers (ZOFRAN) 4 0-24 tablet by ity of mg tablet 00:00: mouth [place] 00 every 8 Medical (eight) Branch hours as needed for Nausea and Vomiting (N/V). traMADoL 50 2021-05 Yes [id number] 50mg Take 1 Univ ers mg tablet 0-24 tablet by ity o f 00:00: mouth [place] 00 every 6 Medical (six) Branch hours as needed for Pain (scale 7-10). Indication s: acute pain ondansetron 2021-05 Yes [id number] 4mg Take 1 Univers (ZOFRAN) 4 0-24 tablet by ity of mg tablet 00:00: mouth [place] 00 every 8 Medical (eight) Branch hours as needed for Nausea and Vomiting (N/V). traMADoL 50 2021-05 Yes [id number] 50mg Take 1 Univ ers mg tablet 0-24 tablet by ity o f 00:00: mouth [place] 00 every 6 Medical (six) Branch hours as needed for Pain (scale 7-10). Indication s: acute pain ondansetron 2021-05 Yes [id number] 4mg Take 1 Univers (ZOFRAN) 4 0-24 tablet by ity of mg tablet 00:00: mouth [place] 00 every 8 Medical (eight) Branch hours as needed for Nausea and Vomiting (N/V). traMADoL 50 2021-05 Yes [id number] 50mg Take 1 Univ ers mg tablet 0-24 tablet by ity o f 00:00: mouth [place] 00 every 6 Medical (six) Branch hours as needed for Pain (scale 7-10). Indication s: acute pain ondansetron 2021-05- No [id number] 4mg Take 1 Univers (ZOFRAN) 4 0-24 03-19 tablet by ity of mg tablet 00:00: 00:00 mouth [place] 00 :00 every 8 Medical (eight) Branch hours as needed for Nausea and Vomiting (N/V). traMADoL 50 2021-05- No [id number] 50mg Take 1 Uni vers mg tablet 0-24 03-19 tablet by ity of 00:00: 00:00 mouth [place] 00 :00 every 6 Medical (six) Branch hours as needed for Pain (scale 7-10). Indication s: acute pain amoxicillin 2021-05- No [id number] 1{tbl} Take 1 Univers -clavulanat 0-24 11-04 tablet by it y of e 875-125 00:00: 04:59 mouth [place] mg per 00 :00 every 12 Medical tablet (twelve) Branch hours for 10 days. ketorolac 2021- No 30mg 30 mg, Unive rs (TORADOL) 01-22 Slow IV ity of injection 03:30: 02:38 Push, [place] 30 mg 00 :00 ONCE, 1 Medical dose, On Branch 01/21/22 at 2230, Routine iopamidol 2021- No [id number] 60mL 60 mL, U nivers (ISOVUE 01-22 Intravenou ity o f 370-500 mL) 02:30: 02:30 s, ONCE, 1 [place] injection 00 :00 dose, On Medica l 60 mL 01/21/22 Branch at 2130, Routine ondansetron 2021- No 4mg 4 mg, Slow Univers (ZOFRAN 01-22 IV Push, ity of (PF)) 01:15: 01:15 ONCE, 1 [place] injection 4 00 :00 dose, On Medi delisa mg 01/21/22 Branch at 2014, ANCELMO NaCl 0.9% 2021- No 500mL at 999 Univ ers (NS) bolus 01-22 mL/hr, 500 it y of infusion 01:15: 02:35 mL, IV [place] 500 mL 00 :00 Infusion, Medical ONCE, 1 Branch dose, On 01/21/22 at 2014, STAT cefdinir Yes [id number] 300mg Take 1 Un esme 300 mg 9-03 capsule by ity of capsule 00:00: mouth [place] 00 every 12 Medical (twelve) Branch hours. ketorolac 0 Yes [id number] 10mg Take 1 U nivers 10 mg 9-03 tablet by ity of tablet 00:00: mouth [place] 00 every 6 Medical (six) Branch hours as needed for Pain (scale 4-6). ondansetron 0 Yes [id number] 4mg Take 1 Univers (ZOFRAN) 4 9-03 tablet by ity of mg tablet 00:00: mouth [place] 00 every 8 Medical (eight) Branch hours as needed for Nausea and Vomiting (N/V). cefdinir 2022-0 Yes [id number] 300mg Take 1 Un esme 300 mg 9-03 capsule by ity of capsule 00:00: mouth [place] 00 every 12 Medical (twelve) Branch hours. ketorolac 2022-0 Yes [id number] 10mg Take 1 U nivers 10 mg 9-03 tablet by ity of tablet 00:00: mouth [place] 00 every 6 Medical (six) Branch hours as needed for Pain (scale 4-6). ondansetron 2022-0 Yes [id number] 4mg Take 1 Univers (ZOFRAN) 4 9-03 tablet by ity of mg tablet 00:00: mouth [place] 00 every 8 Medical (eight) Branch hours as needed for Nausea and Vomiting (N/V). cefdinir 2022-0 Yes [id number] 300mg Take 1 Un esme 300 mg 9-03 capsule by ity of capsule 00:00: mouth [place] 00 every 12 Medical (twelve) Branch hours. ketorolac 2022-0 Yes [id number] 10mg Take 1 U nivers 10 mg 9-03 tablet by ity of tablet 00:00: mouth [place] 00 every 6 Medical (six) Branch hours as needed for Pain (scale 4-6). ondansetron 2022-0 Yes [id number] 4mg Take 1 Univers (ZOFRAN) 4 9-03 tablet by ity of mg tablet 00:00: mouth [place] 00 every 8 Medical (eight) Branch hours as needed for Nausea and Vomiting (N/V). cefdinir 2022-0 Yes [id number] 300mg Take 1 Un esme 300 mg 9-03 capsule by ity of capsule 00:00: mouth [place] 00 every 12 Medical (twelve) Branch hours. ketorolac 2022-0 Yes [id number] 10mg Take 1 U nivers 10 mg 9-03 tablet by ity of tablet 00:00: mouth [place] 00 every 6 Medical (six) Branch hours as needed for Pain (scale 4-6). ondansetron 2022-0 Yes [id number] 4mg Take 1 Univers (ZOFRAN) 4 9-03 tablet by ity of mg tablet 00:00: mouth [place] 00 every 8 Medical (eight) Branch hours as needed for Nausea and Vomiting (N/V). cefdinir 2022-0 Yes [id number] 300mg Take 1 Un esme 300 mg 9-03 capsule by ity of capsule 00:00: mouth [place] 00 every 12 Medical (twelve) Branch hours. ketorolac 2-0 Yes [id number] 10mg Take 1 U nivers 10 mg 9-03 tablet by ity of tablet 00:00: mouth [place] 00 every 6 Medical (six) Branch hours as needed for Pain (scale 4-6). ondansetron 2021-0 Yes [id number] 4mg Take 1 Univers (ZOFRAN) 4 9-03 tablet by ity of mg tablet 00:00: mouth [place] 00 every 8 Medical (eight) Branch hours as needed for Nausea and Vomiting (N/V). cefdinir 2-0 Yes [id number] 300mg Take 1 Un esme 300 mg 9-03 capsule by ity of capsule 00:00: mouth [place] 00 every 12 Medical (twelve) Branch hours. ketorolac 2-0 Yes [id number] 10mg Take 1 U nivers 10 mg 9-03 tablet by ity of tablet 00:00: mouth [place] 00 every 6 Medical (six) Branch hours as needed for Pain (scale 4-6). ondansetron 2021-0 Yes [id number] 4mg Take 1 Univers (ZOFRAN) 4 9-03 tablet by ity of mg tablet 00:00: mouth [place] 00 every 8 Medical (eight) Branch hours as needed for Nausea and Vomiting (N/V). cefdinir 2-0 3- No [id number] 300mg Take 1 U nivers 300 mg 9-03 03-19 capsule by ity of capsule 00:00: 00:00 mouth [place] 00 :00 every 12 Medical (twelve) Branch hours. ketorolac 2022-0 2023- No [id number] 10mg Take 1 Univers 10 mg 9-03 03-19 tablet by ity of tablet 00:00: 00:00 mouth [place] 00 :00 every 6 Medical (six) Branch hours as needed for Pain (scale 4-6). ondansetron 2022-0 3- No [id number] 4mg Take 1 Univers (ZOFRAN) 4 9-03 03-19 tablet by ity of mg tablet 00:00: 00:00 mouth [place] 00 :00 every 8 Medical (eight) Branch hours as needed for Nausea and Vomiting (N/V). cefdinir 2021- No [id number] 300mg Take 1 U nivers 300 mg 01-21 capsule by ity of capsule 00:00: 00:00 mouth [place] 00 :00 every 12 Medical (twelve) Branch hours for 10 days. ketorolac 2021- No [id number] 10mg Take 1 Univers 10 mg 01-21 tablet by ity of tablet 00:00: 00:00 mouth [place] 00 :00 every 6 Medical (six) Branch hours as needed for Pain (scale 4-6). ondansetron 2021- No [id number] 4mg Take 1 Univers (ZOFRAN) 4 01-21 tablet by ity of mg tablet 00:00: 00:00 mouth [place] 00 :00 every 8 Medical (eight) Branch hours as needed for Nausea and Vomiting (N/V). traMADoL Yes [id number] 50mg Take 1 Univers (ULTRAM) 50 6-08 tablet by ity of mg tablet 00:00: mouth [place] 00 every 6 Medical (six) Branch hours as needed for Pain (scale 7-10). Indication s: acute pain metroNIDAZO Yes [id number] 500mg Take 1 Univers LE 500 mg 6-08 tablet by ity o f tablet 00:00: mouth 2 00 (two) Medical times Branch daily. traMADoL 2021-0 Yes [id number] 50mg Take 1 Univers (ULTRAM) 50 6-08 tablet by ity of mg tablet 00:00: mouth [place] 00 every 6 Medical (six) Branch hours as needed for Pain (scale 7-10). Indication s: acute pain metroNIDAZO 2021-0 Yes [id number] 500mg Take 1 Univers LE 500 mg 6-08 tablet by ity o f tablet 00:00: mouth 2 00 (two) Medical times Branch daily. traMADoL 2021-0 Yes [id number] 50mg Take 1 Univers (ULTRAM) 50 6-08 tablet by ity of mg tablet 00:00: mouth [place] 00 every 6 Medical (six) Branch hours as needed for Pain (scale 7-10). Indication s: acute pain metroNIDAZO 2021-0 Yes [id number] 500mg Take 1 Univers LE 500 mg 6-08 tablet by ity o f tablet 00:00: mouth (two) Medical times Branch daily. traMADoL 2021-0 Yes [id number] 50mg Take 1 Univers (ULTRAM) 50 6-08 tablet by ity of mg tablet 00:00: mouth [place] 00 every 6 Medical (six) Branch hours as needed for Pain (scale 7-10). Indication s: acute pain metroNIDAZO 2021-0 Yes [id number] 500mg Take 1 Univers LE 500 mg 6-08 tablet by ity o f tablet 00:00: mouth (two) Medical times Branch daily. traMADoL 2021-0 Yes [id number] 50mg Take 1 Univers (ULTRAM) 50 6-08 tablet by ity of mg tablet 00:00: mouth [place] 00 every 6 Medical (six) Branch hours as needed for Pain (scale 7-10). Indication s: acute pain metroNIDAZO 2021-0 Yes [id number] 500mg Take 1 Univers LE 500 mg 6-08 tablet by ity o f tablet 00:00: mouth (two) Medical times Branch daily. traMADoL 2021-0 Yes [id number] 50mg Take 1 Univers (ULTRAM) 50 6-08 tablet by ity of mg tablet 00:00: mouth [place] 00 every 6 Medical (six) Branch hours as needed for Pain (scale 7-10). Indication s: acute pain metroNIDAZO 2021-0 Yes [id number] 500mg Take 1 Univers LE 500 mg 6-08 tablet by ity o f tablet 00:00: mouth (two) Medical times Branch daily. traMADoL 2021-0 Yes [id number] 50mg Take 1 Univers (ULTRAM) 50 6-08 tablet by ity of mg tablet 00:00: mouth [place] 00 every 6 Medical (six) Branch hours as needed for Pain (scale 7-10). Indication s: acute pain metroNIDAZO 2021-0 Yes [id number] 500mg Take 1 Univers LE 500 mg 6-08 tablet by ity o f tablet 00:00: mouth 2 (two) Medical times Branch daily. traMADoL 2-0 3- No [id number] 50mg Take 1 Univer s (ULTRAM) 50 6-08 03-19 tablet by it y of mg tablet 00:00: 00:00 mouth [place] 00 :00 every 6 Medical (six) Branch hours as needed for Pain (scale 7-10). Indication s: acute pain metroNIDAZO 2022- No [id number] 500mg Take 1 Univers LE 500 mg 10-26 tablet by ity of tablet 00:00: 00:00 mouth 2 [place] 00 :00 (two) Medical times Branch daily. cefdinir 2021- No [id number] 300mg Take 1 Univers 300 mg 10-26 capsule by ity of capsule 00:00: 04:59 mouth 2 [place] 00 :00 (two) Medical times Branch daily for 7 days. doxycycline 2021- No [id number] 100mg Take 1 Univers hyclate 100 10-26 capsule by i ty of mg capsule 00:00: 00:00 mouth 2 [place] 00 :00 (two) Medical times Branch daily. ondansetron 2021- No [id number] 4mg Take 1 Univers 4 mg 10-26 tablet by ity of disintegrat 00:00: 00:00 mouth [place] tablet 00 :00 every 8 Medica l (eight) Branch hours as needed for Nausea and Vomiting (N/V). amoxicillin 2020-05- No [id number] 1{tbl} Take 1 Univers -clavulanat 07-16 tablet by it y of e 875-125 00:00: 00:00 mouth [place] mg per 00 :00 every 12 Medical tablet (twelve) Branch hours. ofloxacin 2020-05- No [id number] 5[drp] Place 5 Univers 0.3 % otic 07-16 Drops in ity of drops 00:00: 00:00 right ear [place] 00 :00 2 (two) Medical times Branch daily. neomycin-po 2020-05- No [id number] 4[drp] Place 4 Univers lymyxin-hyd 07-13 27999 Drops in it y of rocortisone 00:00: 00:00 right ear [place] 3.5-10,000- 00 :00 4 (four) Medi delisa 1 times Branch mg/mL-unit/ daily. mL-% otic susp ciprofloxac 2020-05- No [id number] 500mg Take 1 Univers in HCl 500 07-13 [id number] tablet by it y of mg tablet 00:00[place] ([place] times Branch daily. phenazopyri 2020-05- No [id number] 200mg Take 1 Univers dine 200 mg 2-14 tablet by it y of tablet 00:00: 00:00 mouth 3 [place] 00 :00 (three) Medical times Branch daily. guaiFENesin 2020-05- No [id number] 600mg Take 1 Univers (MUCINEX) 0- tablet by ity of 600 mg 00:00: 00:00 mouth [place] tablet 00 :00 every 12 Medical (twelve) Branch hours. Azithromyci Azithromyci 2019-05- No QD Azithromyc n 250 MG n 250 MG 2-17 12-22 in 250 MG 00:00: 00:00 00 :00 Azithromyci Azithromyci 2019-05 2020- No QD Azithromyc n 250 MG n 250 MG 2-17 12-22 in 250 MG 00:00: 00:00 00 :00 Protonix Protonix 2019-0 Yes Na Arriaza 1 tablet Common 4- Spirit 00:00: - 00 [facility] Omeprazole Omeprazole 2019-0 Yes Na Arriaza 1 capsule Common 4-03 Spirit 00:00: [facility] Omeprazole Omeprazole 2019-0 No 1{capsu BID Omeprazole 40 MG 40 MG 4-03 le} 40 MG 00:00: 00 Omeprazole Omeprazole 2019-0 No 1{capsu BID Omeprazole 40 MG 40 MG 4-03 le} 40 MG 00:00: 00 Omeprazole Omeprazole 2019-0 No 1{capsu BID Omeprazole 40 MG 40 MG 4-03 le} 40 MG 00:00: 00 Zoloft Zoloft Yes Na Arriaza 1 tablet Comm on [facility] Alprazolam Alprazolam Yes Na Arriaza 1 tablet Common [facility] Ondansetron Ondansetron Yes Na Arriaza as Common HCl HCl directed [facility] Tramadol Tramadol Yes Na Arriaza as Comm on HCl HCl directed [facility] Dicyclomine Dicyclomine Yes Na Arriaza 1 tablet Common HCl HCl [facility] Famotidine Famotidine Yes Na Arriaza 1 tablet Common at bedtime [facility] Probiotic Probiotic Yes Na Arriaza as Co mmon directed [facility] Cefdinir Cefdinir Yes Na Arriaza as Comm on directed [facility] Cefdinir Cefdinir No Cefdinir 300 MG 300 MG 300 MG Ondansetron Ondansetron No Ondansetro HCl 8 MG HCl 8 MG n HCl 8 MG Probiotic - Probiotic - No Probiotic - Famotidine Famotidine No 1{table QD Famotidine 20 MG 20 MG t_at_be 20 MG dtime} Zoloft 50 Zoloft 50 No 1{table QD Zoloft 50 MG MG t} MG Dicyclomine Dicyclomine No 1{table QD Dicyclomin HCl 10 MG HCl 10 MG t} e HCl 10 MG Protonix 40 Protonix 40 No 1{table QD Protonix MG MG t} 40 MG Alprazolam Alprazolam No 1{table Alprazolam 0.25 MG 0.25 MG t} 0.25 MG Tramadol Tramadol No Tramadol HCl 50 MG HCl 50 MG HCl 50 MG Cefdinir Cefdinir No Cefdinir 300 MG 300 MG 300 MG Ondansetron Ondansetron No Ondansetro HCl 8 MG HCl 8 MG n HCl 8 MG Probiotic - Probiotic - No Probiotic - Famotidine Famotidine No 1{table QD Famotidine 20 MG 20 MG t_at_be 20 MG dtime} Zoloft 50 Zoloft 50 No 1{table QD Zoloft 50 MG MG t} MG Dicyclomine Dicyclomine No 1{table QD Dicyclomin HCl 10 MG HCl 10 MG t} e HCl 10 MG Protonix 40 Protonix 40 No 1{table QD Protonix MG MG t} 40 MG Alprazolam Alprazolam No 1{table Alprazolam 0.25 MG 0.25 MG t} 0.25 MG Tramadol Tramadol No Tramadol HCl 50 MG HCl 50 MG HCl 50 MG Protonix 40 Protonix 40 No 1{table QD Protonix MG MG t} 40 MG Famotidine Famotidine No 1{table QD Famotidine 20 MG 20 MG t_at_be 20 MG dtime} Probiotic - Probiotic - No Probiotic - Tramadol Tramadol No Tramadol HCl 50 MG HCl 50 MG HCl 50 MG Ondansetron Ondansetron No Ondansetro HCl 8 MG HCl 8 MG n HCl 8 MG Alprazolam Alprazolam No 1{table Alprazolam 0.25 MG 0.25 MG t} 0.25 MG Cefdinir Cefdinir No Cefdinir 300 MG 300 MG 300 MG Zoloft 50 Zoloft 50 No 1{table QD Zoloft 50 MG MG t} MG Dicyclomine Dicyclomine No 1{table QD Dicyclomin HCl 10 MG HCl 10 MG t} e HCl 10 MG Immunizations Ordered Filled Immunization Date Status Comments [facility] e Immunization Name Name Influenza Virus 2021-03-12 Completed Universit y of Vaccine Quad IM, 00:00:00 [facility] dical Preserv and ABX Branch Free 6 MO-64 YRS SARS-COV-2 COVID-19 2021-03-12 Completed Unive rsity of PFIZER VACCINE 00:00:00 [facility] Influenza Virus 2021-03-12 Completed Universit y of Vaccine Quad IM, 00:00:00 [facility] dical Preserv and ABX Branch Free 6 MO-64 YRS SARS-COV-2 COVID-19 2021-03-12 Completed Unive rsity of PFIZER VACCINE 00:00:00 [facility] Influenza Virus 2021-03-12 Completed Universit y of Vaccine Quad IM, 00:00:00 [facility] dical Preserv and ABX Branch Free 6 MO-64 YRS SARS-COV-2 COVID-19 2021-03-12 Completed Unive rsity of PFIZER VACCINE 00:00:00 [facility] Influenza Virus 2021-03-12 Completed Universit y of Vaccine Quad IM, 00:00:00 [facility] dical Preserv and ABX Branch Free 6 MO-64 YRS SARS-COV-2 COVID-19 2021-03-12 Completed Unive rsity of PFIZER VACCINE 00:00:00 [facility] Influenza Virus 2021-03-12 Completed Universit y of Vaccine Quad IM, 00:00:00 [place] [facility] dical Preserv and ABX Branch Free 6 MO-64 YRS SARS-COV-2 COVID-19 2021-03-12 Completed Unive rsity of PFIZER VACCINE 00:00:00 [facility] Influenza Virus 2021-03-12 Completed Universit y of Vaccine Quad IM, 00:00:00 [facility] dical Preserv and ABX Branch Free 6 MO-64 YRS SARS-COV-2 COVID-19 2021-03-12 Completed Unive rsity of PFIZER VACCINE 00:00:00 [facility] Influenza Virus 2021-03-12 Completed Universit y of Vaccine Quad IM, 00:00:00 [facility] dical Preserv and ABX Branch Free 6 MO-64 YRS SARS-COV-2 COVID-19 2021-03-12 Completed Unive rsity of PFIZER VACCINE 00:00:00 [facility] Influenza Virus 2021-03-12 Completed Universit y of Vaccine Quad IM, 00:00:00 [facility] dical Preserv and ABX Branch Free 6 MO-64 YRS SARS-COV-2 COVID-19 2021-03-12 Completed Unive rsity of PFIZER VACCINE 00:00:00 [facility] Influenza Virus 2021-03-12 Completed Universit y of Vaccine Quad IM, 00:00:00 [facility] dical Preserv and ABX Branch Free 6 MO-64 YRS SARS-COV-2 COVID-19 2021-03-12 Completed Unive rsity of PFIZER VACCINE 00:00:00 [facility] Influenza Virus 2020-04-01 Completed Universit y of Vaccine Quad .5 mL 00:00:00 [place] [facility] IM 6+ MO Branch Influenza Virus 2020-04-01 Completed Universit y of Vaccine Quad .5 mL 00:00:00 [place] [facility] IM 6+ MO Branch Influenza Virus 2020-04-01 Completed Universit y of Vaccine Quad .5 mL 00:00:00 [place] [facility] IM 6+ MO Branch Influenza Virus 2020-04-01 Completed Universit y of Vaccine Quad .5 mL 00:00:00 [place] [facility] IM 6+ MO Branch Influenza Virus 2020-04-01 Completed Universit y of Vaccine Quad .5 mL 00:00:00 [place] [facility] IM 6+ MO Branch Influenza Virus 2020-04-01 Completed Universit y of Vaccine Quad .5 mL 00:00:00 [place] [facility] IM 6+ MO Branch Influenza Virus 2020-04-01 Completed Universit y of Vaccine Quad .5 mL 00:00:00 [place] [facility] IM 6+ MO Branch Influenza Virus 2020-04-01 Completed Universit y of Vaccine Quad .5 mL 00:00:00 [place] [facility] IM 6+ MO Branch Influenza Virus 2020-04-01 Completed Universit y of Vaccine Quad .5 mL 00:00:00 [place] [facility] IM 6+ MO Branch Kenalog Kenalog 2019-07-29 Completed [facility] - (Triamcinolone) (Triamcinolone) 11:43:00 [facility] Oswaldoalog Oswaldoalog 2019-07-29 Completed [facility] - (Triamcinolone) (Triamcinolone) 11:43:00 [facility] 2019-07-29 Completed [facility] - (Triamcinolone) (Triamcinolone) 11:43:00 [facility] Oswaldoalog 2018-07-15 Completed [facility] - (Triamcinolone) (Triamcinolone) 11:45:00 [facility] Marlon Mason 2018-07-15 Completed [facility] - (Triamcinolone) (Triamcinolone) 11:45:00 [facility] Marlon 2018-07-15 Completed [facility] - (Triamcinolone) ([facility]cinolone) [facility] 2018-06-19 [facility] - 00:00:00 [facility] Pneumococcal 2015-07-09 Completed University o f Polysaccharide, 00:00:00 [place] Med ical PPSV23 (PNEUMOVAX) Branch Influenza Virus 2015-07-09 Completed Universit y of Vaccine Quad IM 3+ 00:00:00 [facility] Branch Pneumococcal 2015-07-09 Completed University o f Polysaccharide, 00:00:00 [place] Med ical PPSV23 (PNEUMOVAX) Branch Influenza Virus 2015-07-09 Completed Universit y of Vaccine Quad IM 3+ 00:00:00 [facility] Pneumococcal 2015-07-09 Completed University o f Polysaccharide, 00:00:00 [place] Med ical PPSV23 (PNEUMOVAX) Branch Influenza Virus 2015-07-09 Completed Universit y of Vaccine Quad IM 3+ 00:00:00 [facility] Pneumococcal 2015-07-09 Completed University o f Polysaccharide, 00:00:00 [place] Med ical PPSV23 (PNEUMOVAX) Branch Influenza Virus 2015-07-09 Completed Universit y of Vaccine Quad IM 3+ 00:00:00 [facility] Pneumococcal 2015-07-09 Completed University o f Polysaccharide, 00:00:00 [place] [facility] ical PPSV23 (PNEUMOVAX) Branch Influenza Virus 2015-07-09 Completed Universit y of Vaccine Quad IM 3+ 00:00:00 [facility] Pneumococcal 2015-07-09 Completed University o f Polysaccharide, 00:00:00 [place] [facility] ical PPSV23 (PNEUMOVAX) Branch Influenza Virus 2015-07-09 Completed Universit y of Vaccine Quad IM 3+ 00:00:00 [facility] Pneumococcal 2015-07-09 Completed University o f Polysaccharide, 00:00:00 [place] [facility] ical PPSV23 (PNEUMOVAX) Branch Influenza Virus 2015-07-09 Completed Universit y of Vaccine Quad IM 3+ 00:00:00 [facility] Pneumococcal 2015-07-09 Completed University o f Polysaccharide, 00:00:00 [place] [facility] ical PPSV23 (PNEUMOVAX) Branch Influenza Virus 2015-07-09 Completed Universit y of Vaccine Quad IM 3+ 00:00:00 [facility] Pneumococcal 2015-07-09 Completed University o f Polysaccharide, 00:00:00 [place] [facility] ical PPSV23 (PNEUMOVAX) Branch Influenza Virus 2015-07-09 Completed Universit y of Vaccine Quad IM 3+ 00:00:00 [facility] Vital Signs Vital Name Observation Time Observation Value Comments Source Systolic blood 2022-10-18 02:25:00 99 mm[Hg] Univer sity of pressure [facility] Diastolic blood 2022-10-18 02:25:00 60 mm[Hg] Unive rsity of pressure [facility] Heart rate 2022-10-18 02:25:00 58 /min Universi ty of [facility] Respiratory rate 2022-10-18 02:25:00 16 /min Univ ersity of [place] [facility] Oxygen saturation in 2022-10-18 02:25:00 96 /min University of Arterial blood by [facility] Pulse oximetry Branch Body temperature 2022-10-17 22:33:00 37 Laura Univ ersity of [place] [facility] Body height 2022-10-17 22:33:00 152.4 cm Universi ty of [place] [facility] Body weight 2022-10-17 22:33:00 58.605 kg Universi ty of [place] [facility] BMI 2022-10-17 22:33:00 25.23 kg/m2 Universi ty [facility] [place] [facility] Systolic blood 2022-08-06 06:45:00 161 mm[Hg] Univer sity of pressure [place] [facility] Diastolic blood 2022-08-06 06:45:00 98 mm[Hg] Unive rsity of pressure [place] [facility] Heart rate 2022-08-06 06:45:00 124 /min Universi ty of [place] [facility] Body temperature 2022-08-06 06:45:00 37.22 Laura Univ ersity of [place] [facility] Respiratory rate 2022-08-06 06:45:00 16 /min Univ ersity of [place] [facility] Body height 2022-08-06 06:45:00 157.5 cm Universi ty [facility] [place] [facility] Body weight 2022-08-06 06:45:00 58.968 kg Universi ty of [place] [facility] BMI 2022-08-06 06:45:00 23.78 kg/m2 Universi ty of [place] [facility] Oxygen saturation in 2022-08-06 06:45:00 99 /min University of Arterial blood by [facility] Pulse oximetry Branch Systolic blood 2022-07-20 07:06:00 116 mm[Hg] Univer sity of pressure [place] [facility] Diastolic blood 2022-07-20 07:06:00 72 mm[Hg] Unive rsity of pressure [place] [facility] Heart rate 2022-07-20 07:06:00 68 /min Universi ty of [place] [facility] Body temperature 2022-07-20 07:06:00 36.78 Laura Univ ersity of [place] [facility] Respiratory rate 2022-07-20 07:06:00 16 /min Univ ersity of [place] [facility] Body weight 2022-07-20 07:06:00 61.236 kg Universi ty of [place] [facility] BMI 2022-07-20 07:06:00 24.69 kg/m2 Universi ty of [place] [facility] Oxygen saturation in 2022-07-20 07:06:00 99 /min University of Arterial blood by [place] [facility] delisa Pulse oximetry Branch Systolic blood 2022-05-23 16:16:00 112 mm[Hg] Univer sity of pressure [place] [facility] Diastolic blood 2022-05-23 16:16:00 78 mm[Hg] Unive rsity of pressure [place] [facility] Heart rate 2022-05-23 16:16:00 76 /min Universi ty of [place] [facility] Body temperature 2022-05-23 16:16:00 37.11 Laura Univ ersity [facility] [place] [facility] Respiratory rate 2022-05-23 16:16:00 20 /min Univ ersity of [place] [facility] Body height 2022-05-23 16:16:00 157.5 cm Universi ty [facility] [place] [facility] Body weight 2022-05-23 16:16:00 58.968 kg Universi ty [facility] [place] [facility] BMI 2022-05-23 16:16:00 23.78 kg/m2 [facility]i ty [facility] [place] [facility] Oxygen saturation in 2022-05-23 16:16:00 98 /min University of Arterial blood by [facility] Pulse oximetry Branch Systolic blood 2022-03-14 00:39:00 108 mm[Hg] Univer sity of pressure [place] [facility] Diastolic blood 2022-03-14 00:39:00 72 mm[Hg] Unive rsity of pressure [place] [facility] Heart rate 2022-03-14 00:39:00 71 /min Universi ty of [place] [facility] Respiratory rate 2022-03-14 00:39:00 21 /min Univ ersity of [place] [facility] Oxygen saturation in 2022-03-14 00:39:00 97 /min University of Arterial blood by [place] [facility] delisa Pulse oximetry Branch Body temperature 2022-03-13 20:20:00 37 Laura Univ ersity of [place] [facility] Body height 2022-03-13 20:20:00 165.1 cm Universi ty of [place] [facility] Body weight 2022-03-13 20:20:00 58.968 kg Universi ty of [place] [facility] BMI 2022-03-13 20:20:00 21.63 kg/m2 Universi ty [facility] [place] [facility] [place] Systolic blood 2022-01-22 02:49:00 115 mm[Hg] Univer sity of pressure [facility] Diastolic blood 2022-01-22 02:49:00 77 mm[Hg] Unive rsity of pressure [facility] Heart rate 2022-01-22 02:49:00 74 /min Universi ty of [facility] Respiratory rate 2022-01-22 02:49:00 16 /min Univ ersity of [facility] Oxygen saturation in 2022-01-22 02:49:00 99 /min [facility] Arterial blood by [facility] Pulse oximetry Branch Body temperature 2022-01-22 00:43:00 36.39 Laura Univ ersity of [facility] Body weight 2022-01-22 00:43:00 58.968 kg Universi ty of [facility] BMI 2022-01-22 00:43:00 25.39 kg/m2 Universi ty of [facility] Systolic blood 2021-11-01 20:30:00 117 mm[Hg] Univer sity of [facility] Diastolic blood 2021-11-01 20:30:00 66 mm[Hg] Unive rsity of pressure [facility] Heart rate 2021-11-01 20:30:00 62 /min Universi ty of [facility] Body temperature 2021-11-01 20:30:00 36.33 Laura Univ ersity of [facility] Respiratory rate 2021-11-01 20:30:00 16 /min Univ ersity of [facility] Body height 2021-11-01 20:30:00 152.4 cm Universi ty [facility] [place] [facility] [place] Body weight 2021-11-01 20:30:00 58.514 kg Universi ty [facility] [place] [facility] [place] BMI 2021-11-01 20:30:00 25.19 kg/m2 Universi ty of [facility] height 2020-05-06 11:20:00 60 [in_i] [facility] weight 2020-05-06 11:20:00 120 [lb_av] [facility] temperature 2020-05-06 11:20:00 98.5 [degF] [facility] bmi 2020-05-06 11:20:00 23.43 kg/m2 [facility] blood pressure 2020-05-06 11:20:00 125 mm[Hg] [facility] - systolic [facility] blood pressure 2020-05-06 11:20:00 78 mm[Hg] [facility] - diastolic [facility] Procedures Procedure Date / Time Performing Clinician Source Performed RAPID STREP SCREEN FOR 2022-10-17 23:55:00 Maggie [facility] GROUP A Medical Branch RAPID INFLUENZA A/B 2022-10-17 23:55:00 Maggie [facility] COVID-19 (ID NOW RAPID 2022-10-17 23:55:00 Maggie Catherine [facility] [place] [facility] TESTING) Medical Branch URINALYSIS 2022-10-17 22:49:00 Stephanie Tran [facility] CONSENT/REFUSAL FOR 2022-10-17 22:26:18 Doctor Unassigned, No Un iversity of [place] DIAGNOSIS AND TREATMENT Name [facility] Branch ED SPLINT APPLICATION 2022-08-06 07:55:17 Alesia Lechuga [facility] CONSENT/REFUSAL FOR 2022-08-06 06:39:48 Doctor Unassigned, No Un iversity of [place] DIAGNOSIS AND TREATMENT Name Medical Branch COMP. METABOLIC PANEL 2022-07-20 06:32:00 Mehreen Marie [facility] ([id number]) Medical Branch CBC WITH DIFF 2022-07-20 06:32:00 Mehreen Marie [place] [facility] URINALYSIS 2022-07-20 06:32:00 Mehreen Marie [place] [facility] RAPID INFLUENZA A/B 2022-07-20 06:32:00 Mehreen [facility] COVID-19 (ID NOW RAPID 2022-07-20 06:32:00 Mehreen Marie [facility] TESTING) Medical Branch CONSENT/REFUSAL FOR 2022-07-20 05:24:16 Doctor Unassigned, No Un [facility] [place] DIAGNOSIS AND TREATMENT Name Medical Branch URINALYSIS 2022-05-23 17:09:00 Singer [facility] CONSENT/REFUSAL FOR 2022-05-23 16:02:43 [facility], [facility] Name Medical Branch CT ABDOMEN PELVIS W 2022-03-13 22:32:00 Arianne Childress [facility] CONTRAST Medical Branch LIPASE 2022-03-13 21:32:00 Arianne Childress [facility] HEPATIC FUNCTION PANEL 2022-03-13 21:32:00 Arianne Childress [facility] ([id number]) (ALB,T.PRO,BILI Medical Branch T,BU/BC,ALT,AST,ALK PHOS) BASIC METABOLIC PANEL 2022-03-13 21:32:00 Arianne Childress [facility] (NA, K, CL, CO2, Medical Branch GLUCOSE, BUN, CREATININE, CA) CBC WITH DIFF 2022-03-13 21:32:00 Arianne Childress [facility] URINALYSIS 2022-03-13 20:25:00 Singer [facility] CONSENT/REFUSAL FOR 2022-03-13 19:50:11 Doctor [facility] Name Medical Branch CT ABDOMEN PELVIS W 2022-01-22 01:34:54 Jimmie [facility] LIPASE 2022-01-22 01:17:00 Jimmie [facility] COMP. METABOLIC PANEL 2022-01-22 01:17:00 Jimmie [facility] ([id number]) [facility] CBC WITH DIFF 2022-01-22 01:17:00 Jimmie [facility] URINALYSIS 2022-01-22 00:50:00 Jimmie [facility] NOTICE OF PRIVACY 2022-01-22 00:38:08 Doctor Unassigned, No [facility] PRACTICES Name Medical Branch CONSENT/REFUSAL FOR 2022-01-22 00:36:29 Doctor Unassigned, No [facility] Name Medical Branch PAP SMEAR-LIQUID 2021-11-01 21:11:00 Ronit Santiago [facility]- Medical Branch Encounters Start End Encounter Admission Attending Care Care Encounter Source Date/Time Date/Time Type Type Clinicians Facility Department ID 2021-06-15 Outpatient See, STLMLC STLMLC [id number] Common 12:14:07 Juan [address] [facility] 2021-06-15 Outpatient See, STLMLC STLC [id number] Common 11:33:20 Juan [address] [facility] 2021-06-15 Outpatient See, STLMLC STLMLC [id number] Common 11:29:10 Ujan [address]74[address] [facility] 2021-06-15 Outpatient See, STLMLC STLC [id number] Common 11:27:31 Juan [address]379 [facility] 2021-06-15 Outpatient See, STLMLC STLC [id number] Common 11:27:13 Juan 675[address] [facility] 2021-06-15 Outpatient See, STLMLC STLMLC [id number] Common 11:12:57 Juan [address] [facility] 2021-03-22 Emergency [facility] [id number] Univers 08:37:29 ity of [facility] 2021-03-21 Emergency [facility] [id number] Univers 10:37:33 ity of [facility] 2021-03-20 Emergency [facility] [id number] Univers 21:58:58 ity of [facility] 2021-03-20 Emergency [facility] [id number] Univers 11:47:40 ity of [facility] 2021-03-20 Emergency [facility] [id number] Univers 05:05:20 ity of [facility] 2021-03-19 Emergency [facility] [id number] Univers 21:53:05 ity of [facility] 2021-03-19 Emergency [facility] [id number] Univers 11:06:33 ity of [facility] 2021-03-18 Emergency [facility] [id number] Univers 20:23:30 ity of [facility] 2021-03-18 Emergency [facility] [id number] Univers 03:19:07 ity of [facility] 2021-03-17 Emergency [facility] [id number] Univers 13:12:53 ity of [facility] 2022-10-17 2022-10-17 Emergency X Maggie CATHERINE [facility] ERT [id number] Univers 17:35:00 21:37:00 ity of [facility] 2022-10-17 2022-10-17 Emergency Maggie Catherine [facility] [id number] Univers 17:35:00 21:37:00 Doreen [place] [id number] i ty of [place] [id number] [facility] [id number] [address] 2022-10-10 2022-10-10 Outpatient R [facility] [id number] Univers 09:10:00 09:10:00 HOANG ity [facility] 2022-08-06 2022-08-06 Emergency X [facility] ERT [id number] Univers 01:52:00 03:25:00 ALESIA ity [facility] 2022-08-06 2022-08-06 Emergency [facility] [id number] Univers 01:52:00 03:25:00 Alesia May TONNY [id number] ity of [place] [id number] [facility] [id number] [address] 2022-07-19 2022-07-20 Emergency [facility] [id number] Univers 23:34:00 02:20:00 MEHREEN ity [facility] [place] 2022-07-19 2022-07-20 Emergency [facility] 1.2.300.647 [id number] Univers 23:34:00 02:20:00 Mehreen PAREKHTON 350.1.13.10 i ty of [place] 4.2.7.2.686 [facility] [id number] [address] 2022-05-23 2022-05-23 Emergency X [facility] ERT [id number] Univers 10:17:00 12:52:00 RICHARDSON itcosta [facility] [place] 2022-05-23 2022-05-23 Emergency [facility] [id number] Univers 10:17:00 12:52:00 Richardson [place] 350.1.13.10 i ty of [place] 4.2.7.2.686 [facility] [phone] [address] 2022-05-23 2022-05-23 Orders Doctor HOANG 1.2.840.114 [id number] Univers 00:00:00 00:00:00 Only Unassigned, KENDY 350.1.13.10 ity of [place] [facility] 4.2.7.2.686 Edward [phone] [address] 2022-03-13 2022-03-13 Emergency [facility] [id number] Univers 15:26:00 19:56:00 ARIANNE ity [facility] [place] 2022-03-13 2022-03-13 Emergency [facility] 1.2.840.114 [id number] Univers 15:26:00 19:56:00 Arianne S TONNY 350.1.13.10 i ty of [place] 4.2.7.2.686 [facility] [id number] [address] 2022-01-30 2022-01-30 Outpatient R [facility] [id number] Univers 07:12:34 23:59:00 RONIT nguyễny o f [facility] 2022-01-30 2022-01-30 [facility] 1.2.840.114 [id number] Univers 07:12:34 23:59:00 Encounter Ronit R SPECIALTY 350.1.13.10 ity of [facility] 4.2.7.2.686 [facility] AT [phone] Ak vincent BARTLETT [address] [place] [address] 2022-01-21 2022-01-21 Emergency X AUFDERHEIDE [facility] ERT [id number] Univers 19:52:00 21:51:00 , BRENNA ity [facility] [place] 2022-01-21 2022-01-21 Emergency Aufderheide [facility] 1.2.840.114 [id number] Univers 19:52:00 21:51:00 , Brenna TONNY 350.1.13.10 i ty of Roseanne [place] 4.2.7.2.686 [facility] [id number] [address] 2021-11-01 2021-11-01 Office [facility] 1.2.840.114 [id number] Univers 14:30:00 16:08:12 Visit Ronit R CRAYON GRADER 350.1.13.10 ity of [facility] 4.2.7.2.686 Edward as MATERNAL [phone] Med ical & CHILD [address] [place] [address] 2021-11-01 2021-11-01 Outpatient R PAMELA [facility] [id number] Univers 14:30:00 16:08:12 MAUREENABEL nix o [facility] 2021-11-01 2021-11-01 Outpatient R AKINSIRE [facility] [id number] Univers 09:30:00 09:30:00 ISABELL boyd o [facility] 2021-10-26 2021-10-26 Emergency X DIRK [facility] ERT [id number] Univers 19:30:00 23:49:00 [facility] 2021-10-26 2021-10-26 Emergency [facility] 1.2.680.223 [id number] Univers 19:30:00 23:49:00 Dayanna [place] 350.1.13.10 ity of [place] 4.2.7.2.686 [facility] [id number] [address] 2021-05-15 2021-05-15 Emergency [facility] [id number] Univers 02:02:00 13:30:00 DELL nix [facility] 2021-05-15 2021-05-15 Emergency [facility] 1.2.769.314 [id number] Univers 02:02:00 13:30:00 Dell [place] 350.1.13.10 i ty of [place] 4.2.7.2.686 [facility] [phone] [place] 8[address] Branch 2021-05-12 2021-05-12 Emergency X NOBLE, [facility] ERT [id number] Univers 01:32:00 03:32:00 DELL itcosta [facility] [place] 2021-05-12 2021-05-12 Emergency [facility] 1.2.699.902 [id number] Univers 01:32:00 03:32:00 Dell [place] 350.1.13.[address] [facility] 4.2.7.2.686 [facility] [phone] [place] 878394 Branch 2021-05-12 2021-05-12 Orders Doctor HOANG 1.2.840.114 [id number] Univers 00:00:00 00:00:00 Only Unassigned, KENDY 350.1.13.10 ity of [place] [facility] 4.2.7.2.686 Edward [phone] [facility] 009 Branch 2021-04-26 2021-04-26 Emergency X KAVON, [facility] ERT [id number] Univers 16:40:00 18:47:[address] [facility] 2021-04-26 2021-04-26 Emergency [facility] 1.2.840.114 [id number] Univers 16:40:00 18:47:00 Daniel PAREKHLUIS ALBERTO 350.1.13.10 i ty of [place] 4.2.7.2.686 [facility] [phone] [address] 2021-03-10 2021-03-12 Emergency Jennifer Manzano [facility] 1.2.8 40.114 [id number] Univers 12:55:00 18:40:00 Goldstein, [facility] 350.1.13.10 ity of [place] 4.2.7.2.686 [facility] [phone] [place] [address] Branch (CLC) 2020-12-20 2020-12-20 Outpatient [facility] [id number] Univers 00:00:00 00:00:00 ity of [facility] 2020-12-12 2020-12-13 Emergency Maggie Catherine [facility] 1.2.840.114 [id number] Univers 21:14:00 01:55:00 Doreen [place] 350.1.13.10 i ty of [address] [place] [address] [phone] [facility] 084 Branch 2020-10-15 2020-10-15 Emergency X THOMPSON, [facility] ERT [id number] Univers 11:58:00 15:51:00 RICHARDSON ity of [facility] 2020-10-15 2020-10-15 Emergency Thompson, TRAUMA 1.2.364.089 [id number] Univers 11:58:00 15:51:00 [facility] 350.1.13.10 it y of [facility]..[address] [place] [address] [phone] [facility] 014 Branch 2020-09-01 2020-09-01 Outpatient R [facility] [id number] Univers 13:00:00 13:00:00 ity of [facility] 2020-08-27 2020-08-27 Emergency [facility] 1.2.701.716 [id number] Univers 09:15:00 13:06:00 Dell [place] 350.1.13.10 i ty of [address] [place] [address] [phone] [facility] 084 Branch 2020-08-27 2020-08-27 Orders Doctor BOLTON 1.2.840.114 [id number] Univers 00:00:00 00:00:00 Only Unassigned, KENDY 350.1.13.10 ity of [place] [facility] 42.7.2.686 Edward as [id number] [facility] 009 Branch 2020-07-30 2020-07-30 Telephone HOANG Becerra 1.2.553.245 [id number] Univers 00:00:00 00:00:00 Glenis LARRY 350.1.13.10 i ty of [facility] 4.2.7.2.686 Edward as [phone] [facility] 019 Branch 2020-07-28 2020-07-29 Emergency Maggie Catherine [facility] 1.2.840.114 [id number] Univers 20:54:00 00:37:00 Doreen [place] 350.1.13.10 i ty of [place] 4.2.7.2.686 [facility] [phone] [facility] 084 Branch 2020-06-24 2020-06-24 Emergency [facility] 1.2.876.401 [id number] Univers 14:22:00 16:17:00 Mehreen [place] 350.1.13.10 i ty of [place] 4.2.7.2.686 [facility] [phone] [place] 8[address]394 Branch 2020-06-24 2020-06-24 Orders Doctor HOANG 1.2.840.114 [id number] Univers 00:00:00 00:00:00 Only Unassigned, KENDY 350.1.13.10 ity of [place] [facility] 4.2.7.2.686 [facility] [phone] [facility] 009 Branch 2020-06-23 2020-06-23 (TEL) [facility] [id number] Co mmon 00:00:00 00:00:00 Spirit - [facility] 2020-05-25 2020-05-25 Outpatient [facility] [id number] Univers 00:00:00 00:00:00 CLIVE nix [facility] [place] 2020-05-06 2020-05-06 [facility] [id number] Co mmon 00:00:00 00:00:00 VISIT [facility] PT - CHI LEVEL 2 [facility] 2020-05-05 2020-05-05 (TEL) [facility] [id number] Co mmon 00:00:00 00:00:00 [facility] 2020-05-03 2020-05-03 Emergency [facility] 1.2.840.114 [id number] Univers 12:03:00 16:07:00 [facility] 350.1.13.10 it y of [place] 4.2.7.2.686 [facility] [phone] [place] [address] Branch (CLC) 2020-04-05 2020-04-05 Telephone [facility] 1.2.840.114 [id number] Univers 00:00:00 00:00:00 Clive N CRAYON GRADER 350.1.13.10 it y of REGIONAL 4.2.7.2.686 Edward as MATERNAL [phone] [facility] ical & CHILD [address] [place] [address] 2020-04-01 2020-04-01 Office [facility] 1.2.550.265 [id number] Univers 14:01:09 15:15:07 Visit Clive Munguia CRAYON GRADER 350.1.13.10 it y of REGIONAL 4.2.7.2.686 Edward as MATERNAL [phone] [facility] ical & CHILD [address] [place] [address] 2020-04-01 2020-04-01 Outpatient [facility] [id number] Univers 13:30:00 13:30:00 CLIVE boyd of [facility] 2020-04-01 2020-04-01 Orders Doctor HOANG 1.2.840.114 [id number] Univers 00:00:00 00:00:00 Only Unassigned, KENDY 350.1.13.10 ity of [place] [facility] 4.2.7.2.686 Edward as [phone] [facility] 009 [place] 2020-02-20 2020-02-20 Letter Delia Perkins 1.2.840.114 [id number] Univers 00:00:00 00:00:00 (Out) KENDY 350.1.13.10 it y of HOSPITAL 4.2.7.2.686 Edward as [phone] [facility] 019 [place] 2020-02-18 2020-02-18 Emergency Bruce, Maggie [facility] 1.2.840.114 [id number] Univers 20:02:00 21:40:00 Doreen [place] 350.1.13.10 i ty of [place].2.[place] [phone] [facility] 084 [place] 2020-02-18 2020-02-18 Orders Doctor HOANG 1.2.840.114 [id number] Univers 00:00:00 00:00:00 Only Unassigned, KENDY 350.1.13.10 ity of [place] [facility] 4.2.7.2.686 Edward as [phone] [facility] 009 [place] 2019-11-18 2019-11-18 [facility] [id number] Common 15:13:00 15:13:[address] [facility] 2019-11-18 2019-11-18 Telephone HOANG Matos 1.2.398.258 [id number] Univers 00:00:00 00:00:00 Tessa LARRY 350.1.13.10 it y [facility] 4.2.7.2.686 Edward as [phone] [facility] 019 Branch 2019-11-16 2019-11-16 Emergency [facility] 1.2.067.647 [id number] Univers 19:58:07 22:05:00 Richardson [place] 350.1.13.10 i ty of [place] 4.2.7.2.686 [facility] [phone] [place] [address] Branch 2019-11-14 2019-11-14 Out[facility] [id number] Common 14:20:00 14:20:[address] [facility] 2019-11-14 2019-11-14 Out[facility] [id number] Common 11:44:00 11:44:[address] [facility] [address] [facility] 2019-07-29 2019-07-29 Outpatient [facility] [id number] Common 11:15:00 11:15:[address] [facility] 2019-07-29 2019-07-29 [facility] [id number] Common 08:43:00 08:43:[address] [facility] 2019-07-27 2019-07-28 [facility] 1.2.538.122 [id number] Univers 22:56:42 01:19:00 Isaac [place] 350.1.13.10 i ty of [place] 4.2.7.2.686 [facility] [phone] [place] 878[address] Branch 2019-03-20 2019-03-20 [facility] [id number] Common 15:45:00 15:45:[address] [facility] 2018-09-26 2018-09-26 [facility] [id number] Common 11:15:00 11:15:[address] [facility] 2018-09-03 2018-09-03 [facility] [id number] Common 15:39:00 15:39:00 t Specialty/U Sp [facility]ady Specialty rology - [facility] /[facility] Clinic [facility] 2018-09-03 2018-09-03 [facility] [id number] Common 12:09:00 12:09:00 t Specialty/U Sp mady Specialty rology - [facility]I /[facility]rology Clinic [facility] 2018-09-03 2018-09-03 [facility] 25 [id number] Common 09:49:00 09:49:00 t Specialty/U Sp mady Specialty rology - [facility]I /Urology Clinic [facility] 2018 2018 [facility] [id number] Common 16:01:00 16:01:00 t Specialty/U Sp mady Specialty rology - [facility]I /Urology Clinic [facility] 2018-08-21 2018-08-21 Out[facility] [id number] Common 15:30:00 15:30:00 t Specialty/U Sp mady Specialty rology - CHI /Urology Clinic [facility] 2018-08-21 2018-08-21 [facility] [id number] Common 11:30:00 11:30:[address] [facility] 2018-07-24 2018-07-24 [facility] [id number] Common 08:46:00 08:46:[address] [facility] 2018-07-17 2018-07-17 [facility] [id number] Common 13:15:00 13:15:[address] [facility] 2018-07-15 2018-07-15 Outpatient [facility] [id number] Common 11:15:00 11:15:[address] [facility] 2018-06-19 2018-06-19 Outpatient [facility] [id number] Common 08:15:00 08:15:[address] [facility] 2018-04-30 2018-04-30 Outpatient [facility]ana [facility] [id number] Common 13:30:00 13:30:00 Myla [facility] it Drive [facility] Results Test Description Test Time Test Comments Results Result Comments Source CBC WITH DIFF 2022-07-20 07:21:41 Test Item Value Reference Range Interpretation Comme nts WBC (test code = 6690-2) 9.64 See_Comment [A utomated message] The system which ge nerated this result transmit colby reference range: 4.30 - 1 1.10 10*3/?L. The reference r karla was not used to interpr et this result as normal/abnor mal. RBC (test code = 789-8) 3.85 See_Comment L [Au tomated message] The system which ge nerated this result transmit colby reference range: 3.93 - 5 .25 10*6/?L. The reference r karla was not used to interpr et this result as normal/abnor mal. HGB (test code = 718-7) 12.2 g/dL 11.6-15.0 HCT (test code = 4544-3) 34.5 % 35.7-45.2 L MCV (test code = 787-2) 89.6 fL 80.6-95.5 MCH (test code = 785-6) 31.7 pg 25.9-32.8 MCHC (test code = 786-4) 35.4 g/dL 31.6-35.1 H RDW-SD (test code = 75093-6) 41.1 fL 39.0-49.9 RDW-CV (test code = 788-0) 12.6 % 12.0-15.5 PLT (test code = 777-3) 315 See_Comment [Au tomated message] The system which ge nerated this result transmit colby reference range: 166 - 35 8 10*3/?L. The reference range was not used to interpret th is result as normal/abnormal . MPV (test code = 68990-8) 8.7 fL 9.5-12.9 L NRBC/100 WBC (test code = 0.0 See_Comment [ Automated message] The 8028749274) system which [employer] nerated this result transmit colby reference range: 0.0 - 10 .0 /100 WBCs. The reference r karla was not used to interpr et this result as normal/abnor mal. NRBC x10^3 (test code = See_Comment [Au tomated message] The 0960557733) system which [employer] nerated this result transmit colby reference range: 10*3/?L. The reference range was not u sed to interpret this result as normal/abnormal . SEG % (test code = 50486-5) 45 % 33-76 LYMPH % (test code = 48 % 14-54 37326-7) EOS % (test code = 40128-7) 7 % 0-3 H ANC (test code = 753-4) 4.43 10*3/uL 1.88-7.09 Lab Interpretation (test Abnormal code = 82909-3) [facility]. METABOLIC PANEL (42726)2022-07-20 07:05:10 Test Item Value Reference Range Interpretation Comments NA (test code = 139 mmol/L 135-145 4355297355) K (test code = 4.0 mmol/L 3.5-5.0 Slight hemoly sis 3271140854) CL (test code = 105 mmol/L 98-108 9485229261) CO2 TOTAL (test 25 mmol/L 23-31 code = 6681250300) AGAP (test code = 9 2-16 7219635078) BUN (test code = 19 mg/dL 7-23 Slight hemo lysis 0665675286) GLUCOSE (test code 96 mg/dL 70-110 = 6192382511) CREATININE (test 0.59 mg/dL 0.50-1.04 code = 5283585416) TOTAL BILI (test 0.5 mg/dL 0.1-1.1 code = 4693315383) CALCIUM (test code 9.2 mg/dL 8.6-10.6 = 7971625327) T PROTEIN (test 6.9 g/dL 6.3-8.2 code = 5921341329) ALBUMIN (test code 4.4 g/dL 3.5-5.0 = 7525081011) ALK PHOS (test 53 U/L 34-122 Slight hemoly sis code = 3546541640) ALTv (test code = 15 U/L 5-35 1742-6) AST(SGOT) (test 23 U/L 13-40 Slight hemol ysis code = 6961811376) eGFR (test code = 107.9 mL/min/1.73m2 8530802979) LAVONNE (test code = Association of LAVONNE) Glomerular Filtration Rate (GFR) and Staging of Kidney Disease* + ----+ ------+ +| GFR (mL/min/1.73 m2) ?| With Kidney Damage ?| ?Without Kidney Damage+ +--------- +------- +| ?>90 ?| ?Stage one ?| ? Normal ?+ -----+ -------+ +| ?60-89 ?| ?Stage two ?| ? Decreased GFR ? + ----+ ------+ +| ?30-59 ?| ?Stage three ?| ? Stage three ? + ----+ ------+ +| ?15-29 ?| ?Stage four ? | ? Stage four ?+ -----+ -------+ +| ?<15 (or dialysis) ? ?| ?Stage five ? | ? Stage five ?+ -----+ -------+ + *Each stage assumes the associated GFR level has been in effect for at least three months. ?Stages 1 to 5, with or without kidney disease, indicate chronic kidney disease. Notes: Determination of stages one and two (with eGFR >59mL/min/1.73 m2) requires estimation of kidney damage for at least three months as defined by structural or functional abnormalities of the kidney, manifested by either:Pathological abnormalities or Markers of kidney damage (including abnormalities in the composition of the blood or urine or abnormalities in imaging tests). [facility]25898[facility] (ALB,T.PRO,BILI T,BU/BC,ALT,AST,ALK PHOS)2022-03-13 22:31:03 Test Item Value Reference Range Interpretation Comments TOTAL BILI (test code = 8662392008) 0.4 mg/dL 0.1-1.1 BILI UNCON (test code = 7366560374) 0.1 mg/dL 0.1-1.1 BILI CONJ (test code = 3630510445) 0.0 mg/dL 0-0.3 T PROTEIN (test code = 6692925791) 7.0 g/dL 6.3-8.2 ALBUMIN (test code = 2792091047) 4.5 g/dL 3.5-5 ALK PHOS (test code = 1730309892) 60 U/L 34-122 ALTv (test code = 1742-6) 16 U/L 5-35 AST(SGOT) (test code = 0815133101) 25 U/L 13-40 Lab Interpretation (test code = Normal 68399-8) [facility] METABOLIC PANEL (NA, K, CL, CO2, GLUCOSE, BUN, CREATININE, CA)2022-03-13 22:30:43 Test Item Value Reference Range Interpretation Comments NA (test code = 139 mmol/L 135-145 5783085015) K (test code = 4.0 mmol/L 3.5-5 0472535838) CL (test code = 104 mmol/L 98-108 6861225820) CO2 TOTAL (test code 26 mmol/L 23-31 = 0818672319) AGAP (test code = 2-16 3323614050) BUN (test code = 14 mg/dL 7-23 4193742043) GLUCOSE (test code = 93 mg/dL 70-110 2665175835) CREATININE (test code 0.88 mg/dL 0.5-1.04 = 2129053899) CALCIUM (test code = 9.0 mg/dL 8.6-10.6 8495242682) eGFR (test code = mL/min/1.73m2 2477225164) LAVONNE (test code = LAVONNE) Association of Glomerular Filtration Rate (GFR) and Staging of Kidney Disease* + + +- +| GFR (mL/min/1.73 m2) ?| With Kidney Damage ?| ?Without Kidney Damage+ ------+ ----+ ------+| ?>90 ?| ?Stage one ?| ? Normal ?+ -+ + -+| ?60-89 ?| ?Stage two ?| ? Decreased GFR ? + + +- +| ?30-59 ?| ?Stage three ?| ? Stage three ? + + +- +| ?15-29 ?| ?Stage four ? | ? Stage four ?+ -+ + -+| ?<15 (or dialysis) ? ?| ?Stage five ? | ? Stage five ?+ -+ + -+ *Each stage assumes the associated GFR level has been in effect for at least three months. ?Stages 1 to 5, with or without kidney disease, indicate chronic kidney disease. Notes: Determination of stages one and two (with eGFR >59mL/min/1.73 m2) requires estimation of kidney damage for at least three months as defined by structural or functional abnormalities of the kidney, manifested by either:Pathological abnormalities or Markers of kidney damage (including abnormalities in the composition of the blood or urine or abnormalities in imaging tests). [facility] 22:30:43 Test Item Value Reference Range Interpretation Comments LIPASE (test code = 4290281420) 200 U/L 0-220 Lab Interpretation (test code = Normal 84468-8) [facility] WITH [id number] 21:59:40 Test Item Value Reference Range Interpretation Comments WBC (test code = See_Comment H [Automated 1490-2) message] The sy stem which generated this result transmitted reference range : 4.30 - 11.10 10*3/?L. The reference range was not used to interpret this result as normal/abnormal . RBC (test code = See_Comment L [Automated 129-8) message] The sy stem which generated this result transmitted reference range : 3.93 - 5.25 10*6/?L. The reference range was not used to interpret this result as normal/abnormal . HGB (test code = 12.1 g/dL 11.6-15 718-7) HCT (test code = 34.6 % 35.7-45.2 L 4544-3) MCV (test code = 90.1 fL 80.6-95.5 787-2) MCH (test code = 31.5 pg 25.9-32.8 785-6) MCHC (test code = 35.0 g/dL 31.6-35.1 786-4) RDW-SD (test code = 42.3 fL 39-49.9 47784-9) RDW-CV (test code = 12.8 % 12-15.5 788-0) PLT (test code = See_Comment [Automated 777-3) message] The sy stem which generated this result transmitted reference range : 166 - 358 10*3/ ?L. The reference r karla was not used to interpret this result as normal/abnormal . MPV (test code = 8.9 fL 9.5-12.9 L 75567-0) NRBC/100 WBC (test See_Comment [Automat ed code = 4468108350) message] The system which generated this result transmitted reference range : 0.0 - 10.0 /100 WBCs. The refer ence range was not u sed to interpret th is result as normal/abnormal . NRBC x10^3 (test code See_Comment [Auto mated = 4117237254) message] The s ystem which generated this result transmitted reference range : 10*3/?L. The reference range was not used to interpret this result as normal/abnormal . GRAN MAT (NEUT) % 60.3 % (test code = 770-8) IMM GRAN % (test code 0.30 % = 2044087755) LYMPH % (test code = 29.6 % 736-9) MONO % (test code = 6.6 % 5905-5) EOS % (test code = 3.0 % 713-8) BASO % (test code = 0.2 % 706-2) GRAN MAT x10^3(ANC) 7.16 10*3/uL 1.88-7.09 H (test code = 3653523041) IMM GRAN x10^3 (test 0.04 10*3/uL 0-0.06 code = 5838585108) LYMPH x10^3 (test code 3.51 10*3/uL 1.32-3.29 H = 731-0) MONO x10^3 (test code 0.78 10*3/uL 0.33-0.92 = 742-7) EOS x10^3 (test code = 0.35 10*3/uL 0.03-0.39 711-2) BASO x10^3 (test code 0.01-0.07 = 704-7) Lab Interpretation Abnormal (test code = 85806-9) [facility] 01:55:34 Test Item Value Reference Range Interpretation Comments LIPASE (test code = 9433610494) 618 U/L 0-220 H Lab Interpretation (test code = Abnormal 26625-0) [facility] MET[facility]OLIC PANEL (45019)2022-01-22 01:55:34 Test Item Value Reference Range Interpretation Comments NA (test code = 140 mmol/L 135-145 3064158218) K (test code = 4.4 mmol/L 3.5-5 7000629282) CL (test code = 109 mmol/L 98-108 H 1611946564) CO2 TOTAL (test code = 25 mmol/L 23-31 8567079482) AGAP (test code = 2-16 8427184206) BUN (test code = 20 mg/dL 7-23 1722920538) GLUCOSE (test code = 98 mg/dL 70-110 7928148085) CREATININE (test code = 0.73 mg/dL 0.5-1.04 4995168191) TOTAL BILI (test code = 0.2 mg/dL 0.1-1.4 9523995667) CALCIUM (test code = 9.1 mg/dL 8.6-10.6 8991591747) T PROTEIN (test code = 6.9 g/dL 6.3-8.2 9334010754) ALBUMIN (test code = 4.6 g/dL 3.5-5 3136960619) ALK PHOS (test code = 71 U/L 34-122 3335780821) ALTv (test code = 16 U/L 5-35 1742-6) AST(SGOT) (test code = 23 U/L 13-40 7318926550) eGFR (test code = mL/min/1.73m2 7910503624) LAVONNE (test code = LAVONNE) Association of Glomerular Filtration Rate (GFR) and Staging of Kidney Disease* + --+ --+ ------+| GFR (mL/min/1.73 m2) ?| With Kidney Damage ?| ?Without Kidney Damage+ --------+ --------+ +| ?>90 ?| ?Stage one ?| ? Normal ?+ ---+ ---+ -------+| ?60-89 ?| ?Stage two ?| ? Decreased GFR ? + --+ --+ ------+| ?30-59 ?| ?Stage three ?| ? Stage three ? + --+ --+ ------+| ?15-29 ?| ?Stage four ? | ? Stage four ?+ ---+ ---+ -------+| ?<15 (or dialysis) ? ?| ?Stage five ? | ? Stage five ?+ ---+ ---+ -------+ *Each stage assumes the associated GFR level has been in effect for at least three months. ?Stages 1 to 5, with or without kidney disease, indicate chronic kidney disease. Notes: Determination of stages one and two (with eGFR >59mL/min/1.73 m2) requires estimation of kidney damage for at least three months as defined by structural or functional abnormalities of the kidney, manifested by either:Pathological abnormalities or Markers of kidney damage (including abnormalities in the composition of the blood or urine or abnormalities in imaging tests). Lab Interpretation Abnormal (test code = 09397-3) [facility] WITH [id number] 01:48:36 Test Item Value Reference Range Interpretation Comments WBC (test code = See_Comment H [Automated 0065-2) message] The sy stem which generated this result transmitted reference range : 4.30 - 11.10 10*3/?L. The reference range was not used to interpret this result as normal/abnormal . RBC (test code = See_Comment L [Automated 889-8) message] The sy stem which generated this result transmitted reference range : 3.93 - 5.25 10*6/?L. The reference range was not used to interpret this result as normal/abnormal . HGB (test code = 12.1 g/dL 11.6-15 718-7) HCT (test code = 34.3 % 35.7-45.2 L 4544-3) MCV (test code = 89.6 fL 80.6-95.5 787-2) MCH (test code = 31.6 pg 25.9-32.8 785-6) MCHC (test code = 35.3 g/dL 31.6-35.1 H 786-4) RDW-SD (test code = 43.0 fL 39-49.9 00736-4) RDW-CV (test code = 13.1 % 12-15.5 788-0) PLT (test code = See_Comment [Automated 777-3) message] The sy stem which generated this result transmitted reference range : 166 - 358 10*3/ ?L. The reference r karla was not used to interpret this result as normal/abnormal . MPV (test code = 10.1 fL 9.5-12.9 77003-7) NRBC/100 WBC (test See_Comment [Automat ed code = [id number]) message] The system which generated this result transmitted reference range : 0.0 - 10.0 /100 WBCs. The refer ence range was not u sed to interpret th is result as normal/abnormal . NRBC x10^3 (test code See_Comment [Auto mated = [id number]) message] The s ystem which generated this result transmitted reference range : 10*3/?L. The reference range was not used to interpret this result as normal/abnormal . GRAN MAT (NEUT) % 52.3 % (test code = 770-8) IMM GRAN % (test code 0.30 % = [id number]) LYMPH % (test code = 39.4 % 736-9) MONO % (test code = 5.5 % 5905-5) EOS % (test code = 2.3 % 713-8) BASO % (test code = 0.2 % 706-2) GRAN MAT x10^3(ANC) 6.05 10*3/uL 1.88-7.09 (test code = [id number]) IMM GRAN x10^3 (test 0.03 10*3/uL 0-0.06 code = 9843730079) LYMPH x10^3 (test code 4.55 10*3/uL 1.32-3.29 H = 731-0) MONO x10^3 (test code 0.63 10*3/uL 0.33-0.92 = 742-7) EOS x10^3 (test code = 0.27 10*3/uL 0.03-0.39 711-2) BASO x10^3 (test code 0.01-0.07 = 704-7) Lab Interpretation Abnormal (test code = 78144-7) [facility]"
[2022-12-04] MEDS ORDERED: NA CHLORIDE 0.9% 1,000 ML ONE (18:53)
[2022-12-04] MEDS ORDERED: MORPHINE 2 MG/ML SYR ONE ×2 (18:54→20:44)
[2022-12-04] MEDS ORDERED: ONDANSETRON 4 MG/2 ML VIAL ONE (18:54)
[2022-12-04 19:12] LABS: Absolute Lymphocytes (CBC) 3.9 K/uL (0.7-4.9); Hematocrit 33.8 % (36.0-45.0); Lymphocytes % 35.6 % (15.3-44.8); MCV 91.2 fL (80-100); MPV 6.8 fL (7.6-11.3); RBC Red Blood Cell Count 3.71 M/uL (3.86-4.86)
[2022-12-04 19:24] LABS: Urine Bacteria >50 /HPF (<20); Urine Mucus 1+ /HPF (None Seen); Urine RBC <5 /HPF (None Seen)
[2022-12-04 19:32] LABS: Albumin 3.5 g/dL (3.4-5.0); Bilirubin Total 0.2 mg/dL (0.2-1.0); Potassium 3.5 mEq/L (3.5-5.1); Protein, Total 6.5 g/dL (6.4-8.2)
--- NOTE | 2022-12-04 20:22 | RAD REPORT ---
EXAM DESCRIPTION: CT - Stone Protocol - 12/04/2022 8:11 pm CLINICAL HISTORY: Abdominal pain. Flank pain COMPARISON: 2020 and 2011 TECHNIQUE: Computed axial tomography of the abdomen pelvis was obtained without oral or IV contrast. Lack of IV and oral contrast limits evaluation of solid organs, appendix, bowel, and vessels. Rodriguez l reformatted images were obtained and reviewed. All CT scans are performed using dose optimization technique as appropriate and may include automated exposure control or mA/KV adjustment according to patient size. FINDINGS: A renal calculus is not seen. An ureteral calculus is not noted. A bladder calculus is not present. No hydronephrosis The liver, spleen, pancreas and adrenals appear grossly normal There is no evidence of diverticulitis. The appendix appears normal Hysterectomy. No adnexal mass Stable bony sclerosis likely benign IMPRESSION: Negative for a genitourinary calculus
[2022-12-04] MEDS ORDERED: CEFTRIAXONE 1000 MG/VIAL ONE (21:17)
[2022-12-04] MEDS ORDERED: AZITHROMYCIN 250 MG TAB ONE (21:17)
[2022-12-04] MEDS ORDERED: NA CHLORIDE 0.9% 50 ML ONE (21:17)
--- NOTE | 2022-12-04 22:19 | ER ---
Nurse's Notes [facility] Name: Stephania Lobo Age: 52 yrs Sex: Female : 1970 Arrival Date: 12/04/2022 Time: 18:02 Bed 10 Private MD: Papito See Diagnosis: UTI/ Urinary tract infection, site not specified;Encounter for screening for infections with a predominantly sexual mode of transmission Presentation: 12/04 18:08 Chief complaint: Patient states: "I think I have a UTI for the past month. It's gotten mb9 worse. I'm running fever, have chills, weird odor to my urine, I feel disoriented, and the pain goes to my back now.". Coronavirus screen: Vaccine status: Patient reports receiving the 2nd dose of the covid vaccine. Ebola Screen: No symptoms or risks identified at this time. Initial Sepsis Screen: Does the patient meet any 2 criteria? No. Patient's initial sepsis screen is negative. Does the patient have a suspected source of infection? No. Patient's initial sepsis screen is negative. Risk Assessment: Do you want to hurt yourself or someone else? Patient reports no desire to harm self or others. Onset of symptoms was December 04, 2022. 18:08 Method Of Arrival: Ambulatory mb9 18:08 Acuity: ANA 3 mb9 Triage Assessment: 18:10 General: Appears uncomfortable, Behavior is anxious. Pain: Complains of pain in back mb9 Pain does not radiate. Pain currently is 10 out of 10 on a pain scale. Quality of pain is described as burning, Pain began 1 month Is continuous. Neuro: Dennis Agitation-Sedation Scale (RASS): 0 - Alert and Calm Level of Consciousness is awake, alert, obeys commands, Oriented to person, place, time, situation, Appropriate for age. Respiratory: Airway is patent Respiratory effort is even, unlabored, Respiratory pattern is regular, symmetrical. GI: Reports lower abdominal pain. : Reports burning with urination, pain urinary frequency. Derm: Skin is pink, warm \\T\\ dry. Musculoskeletal: Range of motion: intact in all extremities. 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 - Social history:: Smoking status: Patient denies any tobacco usage or history of. Screenin:15 [facility] ED Fall Risk Assessment (Adult) Score/Fall Risk Level 0 - 2 = Low Risk. Abuse eh3 screen: Denies threats or abuse. Denies injuries from another. Nutritional screening: No deficits noted. Tuberculosis screening: No symptoms or risk factors identified. Assessment: 18:15 Reassessment: see triage assessment. mb9 19:00 Reassessment: Patient appears in no apparent distress at this time. Patient and/or eh3 family updated on plan of care and expected duration. Pain level reassessed. Patient is alert, oriented x 3, equal unlabored respirations, skin warm/dry/pink. 20:00 Reassessment: Patient appears in no apparent distress at this time. Patient and/or eh3 family updated on plan of care and expected duration. Pain level reassessed. Patient is alert, oriented x 3, equal unlabored respirations, skin warm/dry/pink. 21:00 Reassessment: Patient appears in no apparent distress at this time. Patient and/or eh3 family updated on plan of care and expected duration. Pain level reassessed. Patient is alert, oriented x 3, equal unlabored respirations, skin warm/dry/pink. Vital Signs: 18:08 BP 119 / 84; Pulse 92; Resp 18; Temp 98.6; Pulse Ox 100% on R/A; Weight 58.97 kg; mb9 Height 5 ft. 0 in. ; Pain 10/10; 19:00 BP 116 / 77; Pulse 94; Resp 18; Pulse Ox 99% on R/A; eh3 20:00 BP 110 / 71; Pulse 92; Resp 18; Pulse Ox 99% on R/A; eh3 22:27 BP 104 / 76; Pulse 81; Resp 18 S; Pulse Ox 98% on R/A; as6 18:08 Body Mass Index 25.39 (58.97 kg, 152.4 cm) mb9 18:08 Pain Scale: Adult mb9 ED Course: 18:03 Patient arrived in ED. am2 18:03 See, Papito, DO is Private Physician. am2 18:09 Triage completed. mb9 18:10 Arm band placed on. mb9 18:12 Ha Bello PA is PSYCHIATRICP. cp 18:12 Ha Martinez MD is Attending Physician. cp 18:13 Bed in low position. Call light in reach. Side rails up X 1. Client placed on mb9 continuous cardiac and pulse oximetry monitoring. NIBP monitoring applied. 18:40 Carmen Zapata RN is Primary Nurse. eh3 20:13 CT Stone Protocol In Process Unspecified. EDMS 21:05 Assist provider with pelvic exam: Set up pelvic tray. Performed by Ha HEARN eh3 Specimens sent to lab. Patient tolerated well. 21:17 Provided Education on: N/A. eh3 22:26 IV discontinued, intact, bleeding controlled, No redness/swelling at site. Pressure as6 dressing applied. Administered Medications: 19:08 Drug: NS 0.9% IV 1000 ml Route: IV; Rate: 500 ml/hr; Site: right antecubital; eh3 20:40 Follow up: IV Status: Completed infusion; IV Intake: 1000ml eh3 19:08 Drug: Ondansetron IVP 4 mg Route: IVP; Site: right antecubital; eh3 20:40 Follow up: Response: No adverse reaction eh3 19:08 Drug: morphine IVP or IV 2 mg Route: IVP; Infused Over: 4 mins; Site: right antecubital;eh3 20:40 Follow up: Response: No adverse reaction eh3 20:39 Drug: morphine IVP or IV 2 mg Route: IVP; Infused Over: 4 mins; Site: right antecubital;eh3 21:16 Follow up: Response: No adverse reaction eh3 21:16 Drug: Rocephin IV 1 grams Route: IV; Rate: calculated rate; Site: right antecubital; eh3 22:20 Follow up: Response: No adverse reaction; IV Status: Completed infusion; IV Intake: 84svol1 21:16 Drug: AZITHromycin PO 1 grams Route: PO; eh3 22:20 Follow up: Response: No adverse reaction as6 Medication: 18:13 VIS not applicable for this client. mb9 Intake: 20:40 IV: 1000ml; Total: 1000ml. eh3 22:20 IV: 10ml; Total: 1010ml. as6 Outcome: 22:18 Discharge ordered by . cp 22:21 Condition: stable as6 22:27 Discharged to home ambulatory. as6 22:27 Discharge instructions given to patient, Instructed on discharge instructions, follow up and referral plans. medication usage, Demonstrated understanding of instructions, follow-up care, medications, Prescriptions given X 3. 22:27 Patient left the ED. as6 Signatures: Dispatcher [employer] EDMS Ha Bello PA PA cp Moreno, Amanda am2 Louie Nettles RN RN as6 Carmen Zapata RN RN eh3 Sherley Mcguire RN RN mb9 Corrections: (The following items were deleted from the chart) 18:10 18:09 Allergies: PENICILLINS; mb9 mb9 18:10 18:09 Home Meds: diclofenac Oral; mb9 mb9 18:10 18:09 Home Meds: orphenadrine citrate 100 mg Oral TbER 1 tab 2 times per day; mb9 mb9 18:10 18:09 PSHx: None; mb9 mb9 20:03 19:15 Reassessment: Patient appears in no apparent distress at this time. Patient eh3 and/or family updated on plan of care and expected duration. Pain level reassessed. Patient is alert, oriented x 3, equal unlabored respirations, skin warm/dry/pink. eh3
--- NOTE | 2022-12-04 22:19 | EDPHYS ---
Physician Documentation [facility] Name: Stephania Lobo Age: 52 yrs Sex: Female : 1970 Arrival Date: 12/04/2022 Time: 18:02 Bed 10 Private MD: Esa [facility] ED Physician Ha Martinez HPI: 12/04 18:25 This 52 yrs old Female presents to ER via Ambulatory with complaints of cp Urinary Problem. 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 - Social history:: Smoking status: Patient denies any tobacco usage or history of. ROS: 18:30 Constitutional: Negative for body aches, chills, fever, poor PO intake. cp 18:30 Eyes: Negative for injury, pain, redness, and discharge. cp 18:30 ENT: Negative for drainage from ear(s), ear pain, sore throat, difficulty swallowing, difficulty handling secretions. 18:30 Cardiovascular: Negative for chest pain, edema, palpitations. 18:30 Respiratory: Negative for cough, shortness of breath, wheezing. 18:30 Abdomen/GI: Positive for abdominal pain, nausea and vomiting, Negative for diarrhea, constipation. 18:30 Back: Positive for flank pain, bilaterally. 18:30 : Positive for urinary symptoms, Negative for vaginal bleeding. 18:30 Neuro: Negative for altered mental status, dizziness, headache, syncope, weakness. 18:30 All other systems are negative. Exam: 18:35 Constitutional: The patient appears in no acute distress, alert, awake, cp non-diaphoretic, non-toxic, well developed, well nourished, uncomfortable. 18:35 Head/Face: Normocephalic, atraumatic. cp 18:35 Eyes: Periorbital structures: appear normal, Conjunctiva: normal, no exudate, no injection, Sclera: no appreciated abnormality, Lids and lashes: appear normal, bilaterally. 18:35 ENT: External ear(s): are unremarkable, Nose: is normal, Mouth: Lips: moist, Oral mucosa: pink and intact, moist, Posterior pharynx: is normal, airway is patent, no erythema, no exudate. 18:35 Chest/axilla: Inspection: normal. 18:35 Cardiovascular: Rate: normal, Rhythm: regular, Edema: is not appreciated, JVD: is not appreciated. 18:35 Respiratory: the patient does not display signs of respiratory distress, Respirations: normal, no use of accessory muscles, no retractions, labored breathing, is not present, Breath sounds: are clear throughout, no decreased breath sounds, no stridor, no wheezing. 18:35 Abdomen/GI: Inspection: abdomen appears normal, Bowel sounds: active, all quadrants, Palpation: soft, in all quadrants, moderate abdominal tenderness, in the right lower quadrant and left lower quadrant. 18:35 Back: pain, that is moderate, of the mid back area, ROM is painful, with all movement. 18:35 Skin: no rash present. 18:35 Neuro: Orientation: to person, place \T\ time. Mentation: is normal, Motor: moves all fours, strength is normal, Sensation: is normal. Vital Signs: 18:08 BP 119 / 84; Pulse 92; Resp 18; Temp 98.6; Pulse Ox 100% on R/A; Weight 58.97 kg; mb9 Height 5 ft. 0 in. ; Pain 10/10; 19:00 BP 116 / 77; Pulse 94; Resp 18; Pulse Ox 99% on R/A; eh3 20:00 BP 110 / 71; Pulse 92; Resp 18; Pulse Ox 99% on R/A; eh3 22:27 BP 104 / 76; Pulse 81; Resp 18 S; Pulse Ox 98% on R/A; as6 18:08 Body Mass Index 25.39 (58.97 kg, 152.4 cm) mb9 18:08 Pain Scale: Adult mb9 MDM: 18:19 Patient medically screened. harsh 12/04 18:12 Order name: Urine Microscopic Only; Complete Time: 20:25 cp 12/04 21:55 Interpretation: Normal except: UWBC 10-20; UBACT >50. cp 12/04 18:22 Order name: CBC with Diff; Complete Time: 20:25 cp 12/04 18:22 Order name: CMP; Complete Time: 20:25 cp 12/04 18:22 Order name: Lipase; Complete Time: 20:25 cp 12/04 18:22 Order name: Lactate w/ 2H reflex if indic.; Complete Time: 20:25 cp 12/04 19:19 Order name: GC (GONORR/CHLAMYDIA) Probe cp 12/04 19:19 Order name: Wet Prep; Complete Time: 22:18 cp 12/04 19:27 Order name: Urine Culture EDMS 12/04 18:56 Order name: CT Stone Protocol; Complete Time: 20:25 cp 12/04 18:22 Order name: IV Saline Lock; Complete Time: 19:08 cp 12/04 18:22 Order name: Labs collected and sent; Complete Time: 19:08 cp 12/04 19:19 Order name: Pelvic Exam Setup; Complete Time: 19:46 cp Administered Medications: 19:08 Drug: NS 0.9% IV 1000 ml Route: IV; Rate: 500 ml/hr; Site: right antecubital; eh3 20:40 Follow up: IV Status: Completed infusion; IV Intake: 1000ml eh3 19:08 Drug: Ondansetron IVP 4 mg Route: IVP; Site: right antecubital; eh3 20:40 Follow up: Response: No adverse reaction eh3 19:08 Drug: morphine IVP or IV 2 mg Route: IVP; Infused Over: 4 mins; Site: right antecubital;eh3 20:40 Follow up: Response: No adverse reaction eh3 20:39 Drug: morphine IVP or IV 2 mg Route: IVP; Infused Over: 4 mins; Site: right antecubital;eh3 21:16 Follow up: Response: No adverse reaction eh3 21:16 Drug: Rocephin IV 1 grams Route: IV; Rate: calculated rate; Site: right antecubital; eh3 22:20 Follow up: Response: No adverse reaction; IV Status: Completed infusion; IV Intake: [id number] 21:16 Drug: AZITHromycin PO 1 grams Route: PO; eh3 22:20 Follow up: Response: No adverse reaction as6 Disposition Summary: 12/04/22 22:18 Discharge Ordered Location: Home cp Problem: new cp Symptoms: have improved cp Condition: Stable cp Diagnosis - UTI/ Urinary tract infection, site not specified cp - Encounter for screening for infections with a predominantly sexual mode of cp transmission Followup: cp - With: Private Physician - When: 2 - 3 days - Reason: Recheck today's complaints Discharge Instructions: - Urinary Tract Infection, Adult cp - Discharge Summary Sheet 3 Forms: - Medication Reconciliation Form cp - Thank You Letter cp - Antibiotic Education cp - Prescription Opioid Use cp - Patient Portal Instructions cp - Work release form 3 Prescriptions: - Ibuprofen 600 mg Oral Tablet - take 1 tablet by ORAL route every 8 hours As needed take with food; 30 tablet; cp Refills: 0, Product Selection Permitted - Zofran 4 mg Oral Tablet - take 1 tablet by ORAL route every 12 hours As needed; 20 tablet; Refills: 0, cp Product Selection Permitted - cefpodoxime 200 mg Oral Tablet - take 1 tablet by ORAL route every 12 hours for 7 days with food; 14 tablet; cp Refills: 0, Product Selection Permitted Signatures: Dispatcher [employer] EDHa Christianson MD MD cha Page, Corey, PA PA cp Carmen Zapata RN RN 3 Sherley Mcguire RN RN mb9 Louie Nettles RN as6 Corrections: (The following items were deleted from the chart) 18:10 18:09 Allergies: PENICILLINS; 9 mb9 18:10 18:09 Home Meds: diclofenac Oral; 9 mb9 18:10 18:09 Home Meds: orphenadrine citrate 100 mg Oral TbER 1 tab 2 times per day; mb9 mb9 18:10 18:09 PSHx: None; [facility] mb9
[2022-12-05 01:49] VITALS: TEMP 98.6
[2022-12-05 01:52] VITALS: BP 104/76; O2SAT 98
[2022-12-07 20:34] LABS: C.trachomatis RNA,TMA Not Detected (Not Detected)
== END 2022-12-04 22:27 | disposition home or self-care (01) ==
LOC: ER 18:02
DX: N39.0 Urinary tract infection, site not specified (principal); Z11.3 Encounter for screening for infections with a predominantly sexual mode of transmission; Z90.710 Acquired absence of both cervix and uterus
CPT/HCPCS: 36415; 74176; 76377; 80053; 81015; 83605; 83690; 85025; 87077; 87086; 87088; 87186; 87210; 87490; 87590; 96361; 96365; 96375; 99285; J0696; J2270; J2405; J7030

== ENCOUNTER 2023-04-09 17:47 | Emergency (ER) | payer OTHER, SELFPAY ==
--- OUTSIDE RECORDS SUMMARY | 2023-04-09 17:53 | XMS REPORT | Continuity of Care Document ---
:1970 Author Organization [facility] t Address [address] [facility] [address] [place] [address] Care Team Providers Name Role Phone JUAN SEE Primary Care Physician Unavailable Juan See Attending Clinician Unavailable [email or web address] Attending Clinician Unavailable BRENNA SAMUEL Attending Clinician Unavailable Brenna Samuel MD Attending Clinician [phone] MARIA VICTORIA PRADO Attending Clinician Unavailable Maria Victoria Prado MD Attending Clinician Maggie CATHERINE Attending Clinician Unavailable Maggie Schwartz Attending Clinician HOANG ALFARO Attending Clinician Unavailable Doctor Unassigned, [place] Attending Clinician Unavailable ALESIA LECHUGA Attending Clinician Unavailable Alesia Lechuga NP Attending Clinician MEHREEN MARIE Attending Clinician Unavailable Mehreen Smith Attending Clinician RICHARDSON THOMPSON Attending Clinician Unavailable Richardson Thompson DO Attending Clinician ARIANNE CHILDRESS Attending Clinician Unavailable Laurita MD, Arianne S Attending Clinician RONIT SANTIAGO Attending Clinician Unavailable Pamela HARMANP, Ronit Bejarano Attending Clinician ISABELL VALDES Attending Clinician Unavailable DAYANNA HANNON Attending Clinician Unavailable Dayanna Hannon MD Attending Clinician DELL NOBLE Attending Clinician Unavailable Dell Noble MD Attending Clinician DANIEL CHAU Attending Clinician Unavailable Kavon EVIDENCE SPECIALIST, Daniel Attending Clinician Jose Juan EVIDENCE SPECIALIST, Jennifer Attending Clinician Onur Goldstein MD Attending Clinician Glenis Becerra RN Attending Clinician Unavailable CLIVE TRAN Attending Clinician Unavailable Atif Shearer CNP Attending Clinician Chelsea EVIDENCE SPECIALIST, Clive Munguia Attending Clinician Delia Perkins RN Attending Clinician Unavailable Tessa Matos RN Attending Clinician Unavailable Isaac Reynolds MD Attending Clinician [email or web address] Admitting Clinician Unavailable BRENNA SAMUEL Admitting Clinician Unavailable MARIA VICTORIA PRADO Admitting Clinician Unavailable ALESIA LECHUGA Admitting Clinician Unavailable ARIANNE CHILDRESS Admitting Clinician Unavailable DAYANNA HANNON Admitting Clinician Unavailable DELL NOBLE Admitting Clinician Unavailable Onur Goldstein MD Admitting Clinician RICHARDSON THOMPSON Admitting Clinician Unavailable Payers Payer Name Policy Type Policy Number Effective Date Expiration Date Lucero WADE [id number] 2018 00:00:00 Problems Condition Condition Condition Status Onset Resolution Last Treating Co mments Source Name Details Category Date Date Treatment Clinician Date History of History of Disease Active U nivers bilateral bilateral 6-14 ity of tubal tubal 00:00: [place] ligation ligation 00 Medica l Branch BMI BMI Disease Active Univers 25.0-25.9, 25.0-25.9, 6-14 it y of adult adult 00:00: [place] [facility] BMI BMI Disease Active Univers 25.0-25.9, 25.0-25.9, 6-14 it y of adult adult 00:00: [facility] Enteritis Enteritis Disease Active 2020-05 Uni vers 0-21 ity of 00:00: [facility] Dysuria Dysuria Disease Active 2019-05 Univers 1-12 ity of 00:00: [place] [facility] Positive Positive Disease Active 2019-05 Unive rs depression depression 1-12 it y [facility] screening [facility] S/P S/P Disease Active Univers hysterecto hysterecto 2-17 it y of my my 00:00: [facility] Smoker Smoker Disease Active 2012-05 Univers 2-20 ity of 00:: [place] [facility] Well woman Well woman Disease Active 2012-05 U nivers exam exam 0-23 ity of 00:00: [address] Vaginal Vaginal Problem Active Common mass mass Spirit [facility] [id number] Gastritis Problem Active Commo n without Spirit bleeding, - [facility] chronicity Medica l , Center unspecifie d gastritis type Insomnia Insomnia Problem Active Commo n Spirit [facility] Osteoarthr Osteoarthr Problem Active C ommon itis of itis of Spirit knee knee, - [facility] laterality Medica l , Center unspecifie d osteoarthr itis type Tobacco Tobacco Problem Active Common use use Spirit disorder [facility] [id number] Severe Problem Active Common anxiety Spirit with panic [facility] Allergies, Adverse Reactions, Alerts Allergy Allergy Status Severity Reaction(s) Onset Inactive Treating Comm ents Source Name Type Date Date Clinician NO KNOWN Drug Active Univers ALLERGIE Class ity of S [facility] Social History Social Habit Start Date Stop Date Quantity Comments Source History of Tobacco Current Smoker Co mmon Spirit - Use [facility] Sex Assigned At Common Sp mady - [facility] Gender identity Universit y [facility] Sexual orientation Univer sity of [facility] History SDOH University o f Alcohol Frequency [place] M edical [facility] History SDMA University o f Alcohol Std Drinks [place] [facility] Anita History [facility] University o f Alcohol Binge [place] Medic al Branch Alcohol intake 2023-02-03 2023-02-03 Current drinker Unive rsity of 00:00:00 00:00:00 of alcohol [facility] (finding) Branch Exposure to 2022-10-07 2022-10-17 Not sure University of SARS-CoV-2 (event) 00:00:00 17:31:00 [facility] History of Social 2021-11-01 2021-11-01 Univers ity of function 00:00:00 00:00:00 [facility] Tobacco use and 2020-04-01 2020-04-01 Smokeless tobacco Un iversity of exposure 00:00:00 00:00:00 non-user [facility] Tobacco Comment 2020-04-01 2020-04-01 3-4 cigarretes Unive rsity of 00:00:00 00:00:00 per day [facility] Cigarettes smoked 2020-04-01 2020-04-01 Univers ity of current (pack per 00:00:00 00:00:00 ) - Reported Branch Cigarette 2020-04-01 2020-04-01 University of pack-years 00:00:00 00:00:00 [facility] Alcohol Comment 2013-03-12 2013-03-12 on occasion Universi ty of 00:00:00 00:00:00 [facility] Smoking Status Start Date Stop Date Source Smokes tobacco daily 2020-04-01 00:00:00 Univers ity of [facility] Medications Ordered Filled Start Stop Current Ordering Indication Dosage Frequency Signature Comments Components Source Medication Medication Date Date Medication? Clinician (SIG) Name Name cyclobenzap 2022-05- No 5mg 5 mg, Univ ers rine 0-18 -18 Oral, ONCE ity of (FLEXERIL) 01:45: 00:57 NOW, 1 [place] tablet 5 mg 00 :00 dose, On Medi [facility] Branch 03/06/23 at 204, Routine ketorolac 2022-05- No 30mg 30 mg, Unive rs (TORADOL) 0-18 10-18 Slow IV ity of injection 01:45: 00:56 Push, [place] 30 mg 00 :00 ONCE, 1 Medical dose, On Branch [facility] 03/06/23 at 2045, Routine NaCl 0.9% 2022-05- No 500mL at 999 Univ ers (NS) bolus 0-17 10-18 mL/hr, 500 it y of infusion 23:30: 00:57 mL, IV [place] 500 mL 00 :00 Infusion, Medical ONCE, 1 Branch dose, On Sun03/06/23 at 1830, STAT acetaminoph 2022-05 No 1000mg 1,000 mg, Univers en 03-06 Oral, ONCE ity of (TYLENOL) 22:00: 23:46 NOW, 1 [place] tablet 00 :00 dose, On Medical 1,000 mg Tue Branch 03/06/23 at 1700, Routine diphenhydrA 2022-05 No 25mg 25 mg, Uni vers MINE 003-06 Slow IV ity of (BENADRYL) 21:15: 23:45 Push, [place] injection 00 :00 ONCE, 1 Medical 25 mg dose, On Branch 03/06/23 at 1615, STAT metoclopram 2022-05 No 10mg 10 mg, Uni vers kelsie HCl 03-06 Slow IV ity of (REGLAN) 21:15: 23:45 Push, [place] injection 00 :00 ONCE, 1 Medical 10 mg dose, On Branch Sun03/06/23 at 1615, ANCELMO iopamidol 2022- No [id number] 70mL 70 mL, Univers (ISOVUE 02-03 Intravenou ity o f 370-500 mL) 19:30: 19:30 s, ONCE, 1 [place] injection 00 :00 dose, On Medica l 70 mL Sat Branch 02/03/23 at 1430, Routine HYDROcodone 2022- No 1{tbl} 1 tablet, Univers -acetaminop 02-03 Oral, ity of hen (NORCO 19:15: 19:12 ONCE, 1 [place] as 5) 5-325 mg 00 :00 dose, On Medi delisa tablet 1 Sat Branch tablet 02/03/23 at 1415, ANCEMLO ketorolac 2022- No 30mg 30 mg, Unive rs (TORADOL) 02-03 Slow IV ity of injection 19:15: 18:12 Push, [place] 30 mg 00 :00 ONCE, 1 Medical dose, On Branch 02/03/23 at 1415, ANCELMO NaCl 0.9% 2022- No 1000mL at 999 Uni vers (NS) bolus 02-03 mL/hr, ity of infusion 19:00: 19:11 1,000 mL, [place] as 1,000 mL 00 :00 IV Medical Infusion, Branch ONCE, 1 dose, On 02/03/23 at 1400, ANCELMO ondansetron 0 2022- No 4mg 4 mg, Slow Univers (ZOFRAN 02-03 IV Push, ity of (PF)) 18:15: 18:11 ONCE, 1 [place] injection 4 00 :00 dose, On Medi delisa mg Sat Branch 02/03/23 at 1315, ANCELMO ondansetron 0 Yes [id number] 4mg Take 1 Univers 4 mg 9-16 tablet by ity of disintegrat 00:00: mouth [place] ing tablet 00 every 8 Medica l (eight) Branch hours as needed for Nausea and Vomiting (N/V). ondansetron 0 Yes [id number] 4mg Take 1 Univers 4 mg 9-16 tablet by ity of disintegrat 00:00: mouth [place] ing tablet 00 every 8 Medica l (eight) Branch hours as needed for Nausea and Vomiting (N/V). traMADoL 50 2022-2022- Yes [id number] 50mg Take 1 Uni vers mg tablet 02-03 tablet by ity of 00:00: 04:59 mouth [place] 00 :00 every 6 Medical (six) Branch hours as needed for Pain (scale 7-10) for up to 7 days. Indication s: acute pain phenazopyri 0 2022- No 200mg 200 mg, U nivers dine 10-18 Oral, ity of (PYRIDIUM) 01:15: 01:19 ONCE, 1 [place] tablet 200 00 :00 dose, On Medic al mg Tue Branch 10/17/22 at 2015, ANCELMO cefTRIAXone 2022-0 2022- No 1000mg 1,000 mg, Univers (ROCEPHIN) 10-18 IV ity of 1,000 mg in 01:15: 01:49 Piggyback, [place] NaCl 0.9% 00 :00 ONCE, 1 Medical (NS) 100 mL dose, On Bran ch MINI-BAG e 10/17/22 at 2015, Administer over 30 Minutes, 100 mL
Reas on for Anti-Infec tive: Documented Infection< br>Documen colby Infection Site: Urine<br&g t;Duration of Therapy: Other (see Comments) NaCl 0.9% 2022- No 1000mL at 999 Uni vers (NS) bolus 10-18 mL/hr, ity of infusion 00:45: 00:54 1,000 mL, [place] as 1,000 mL 00 :00 IV Medical Infusion, Branch ONCE, 1 dose, On 10/17/22 at 1945, STAT ondansetron 2022- No 4mg 4 mg, Slow Univers (ZOFRAN 10-18 IV Push, ity of (PF)) 00:45: 23:56 ONCE, 1 [place] injection 4 00 :00 dose, On Medi delisa mg e Branch 10/17/22 at 1945, ANCELMO ibuprofen 2022- No 600mg 600 mg, Uni vers (IBU) 10-17 Oral, ity of tablet 600 23:45: 23:56 ONCE, 1 [place] mg 00 :00 dose, On Medical e Branch 10/17/22 at 1845, ANCELMO ondansetron 0 Yes [id number] 4mg Take 1 Univers 4 mg 5-30 tablet by ity of disintegrat 00:00: mouth [place] ing tablet 00 every 8 Medica l (eight) Branch hours as needed for Nausea and Vomiting (N/V). ibuprofen 2022-0 Yes [id number] 600mg Take 1 U nivers 600 mg 5-30 tablet by ity of tablet 00:00: mouth [place] 00 every 6 Medical (six) Branch hours as needed for Pain (scale 4-6). ibuprofen 2022-0 Yes [id number] 600mg Take 1 U nivers 600 mg 5-30 tablet by ity of tablet 00:00: mouth [place] 00 every 6 Medical (six) Branch hours as needed for Pain (scale 4-6). ibuprofen 2022-0 Yes [id number] 600mg Take 1 U nivers 600 mg 5-30 tablet by ity of tablet 00:00: mouth [place] 00 every 6 Medical (six) Branch hours as needed for Pain (scale 4-6). ondansetron 2022-0 2022- No [id number] 4mg Take 1 Univers 4 mg 5-30 09-16 tablet by ity of disintegrat 00:00: 00:00 [place] tablet 00 :00 every 8 Medica l (eight) Branch hours as needed for Nausea and Vomiting (N/V). cefdinir 2022-2022- No [id number] 300mg Take 1 U nivers 300 mg 5-30 06-10 capsule by ity of capsule 00:00: 04:59 mouth [place] 00 :00 every 12 Medical (twelve) Branch hours for 10 days. acetaminoph 2022-2022- No 650mg 650 mg, U nivers en 08-06-19 Oral, ity of (TYLENOL) 07:15: 07:18 ONCE, 1 [place] tablet 650 00 :00 dose, On Medic al mg Sun Branch 08/06/22 at 0215, ANCELMO SERTraline 2022-0 Yes 50mg Take 1 Unive rs (ZOLOFT) 50 3-19 tablet by ity of mg tablet 03:25: mouth in [place] [address] the Medical morning. Branch ALPRAZolam 3-0 Yes .25mg Take 1 Univ ers 0.25 mg 3-19 tablet by ity of tablet 03:25: mouth 2 [place] [address] (two) Medical times Branch daily as needed for Anxiety. SERTraline 2023-0 Yes 50mg Take 1 Unive rs (ZOLOFT) 50 3-19 tablet by ity of mg tablet 03:25: mouth in [place] [address] the Medical morning. Branch ALPRAZolam 2023-0 Yes .25mg Take 1 Univ ers 0.25 mg 3-19 tablet by ity of tablet 03:25: mouth 2 [place] [address] (two) Medical times Branch daily as needed for Anxiety. SERTraline 2023-0 Yes 50mg Take 1 Unive rs (ZOLOFT) 50 3-19 tablet by ity of mg tablet 03:25: mouth in [place] [facility] the Medical morning. Branch ALPRAZolam 2023-0 Yes .25mg Take 1 Univ ers 0.25 mg 3-19 tablet by ity of tablet 03:25: mouth 2 [place] [address] (two) Medical times Branch daily as needed for Anxiety. SERTraline 2023-0 Yes 50mg Take 1 Unive rs (ZOLOFT) 50 3-19 tablet by ity of mg tablet 03:25: mouth in [facility] s the Medical morning. Branch ALPRAZolam 2022-0 Yes .25mg Take 1 Univ ers 0.25 mg 3-19 tablet by ity of tablet 03:25: mouth 2 [place] 57 (two) Medical times Branch daily as needed for Anxiety. SERTraline 2022-0 Yes 50mg Take 1 Unive rs (ZOLOFT) 50 3-19 tablet by ity of mg tablet 03:25: mouth in [facility] s 57 the Medical morning. Branch ALPRAZolam 2022-0 Yes .25mg Take 1 Univ ers 0.25 mg 3-19 tablet by ity of tablet 03:25: mouth 2 [place] 57 (two) Medical times Branch daily as needed for Anxiety. ibuprofen 2022-0 Yes [id number] 600mg Take 1 Univers 600 mg 3-19 [id number] tablet by ity of tablet 00:00: mouth [place] 00 every 6 Medical (six) Branch hours as needed for Pain (scale 4-6) or Pain (scale 1-3). ibuprofen 2022-0 Yes [id number] 600mg Take 1 Univers 600 mg 3-19 [id number] tablet by ity of tablet 00:00: mouth [place] 00 every 6 Medical (six) Branch hours as needed for Pain (scale 4-6) or Pain (scale 1-3). ibuprofen 2022-0 Yes [id number] 600mg Take 1 Univers 600 mg 3-19 [id number] tablet by ity of tablet 00:00: mouth [place] 00 every 6 Medical (six) Branch hours as needed for Pain (scale 4-6) or Pain (scale 1-3). ibuprofen 2022-0 Yes [id number] 600mg Take 1 Univers 600 mg 3-19 [id number] tablet by ity of tablet 00:00: mouth [place] 00 every 6 Medical (six) Branch hours as needed for Pain (scale 4-6) or Pain (scale 1-3). ibuprofen 2022-0 Yes [id number] 600mg Take 1 Univers 600 mg 3-19 [id number] tablet by ity of tablet 00:00: mouth [place] 00 every 6 Medical (six) Branch hours as needed for Pain (scale 4-6) or Pain (scale 1-3). acetaminoph 2022- No 1000mg 1,000 mg, Univers en 07-20 Oral, ity of (TYLENOL) 09:15: 08:15 ONCE, 1 [place] tablet 00 :00 dose, On Medical 1,000 mg [place] 07/20/22 Branc h at 0315, Routine maalox:diph 2022-2022- No 15mL 15 mL, Uni vers enhydrAMINE 07-20 Oral, ity of :lidocaine 08:15: 08:16 ONCE, 1 [place] 2 % viscous 00 :00 dose, On Medi delisa 1:1:1 [place] 07/20/22 Branch (FIRST-MOUT at 0215, HWASH BLM) Routine oral suspension 15 mL NaCl 0.9% 2022- No 1000mL at 999 Uni vers (NS) bolus 07-20 mL/hr, ity of infusion 07:30: 08:14 1,000 mL, [place] 1,000 mL 00 :00 IV Medical Infusion, Branch ONCE, 1 dose, On [place] 07/20/22 at 0130, STAT ondansetron 2022- No 4mg 4 mg, Slow Univers (ZOFRAN 07-20 IV Push, ity of (PF)) 06:30: 06:33 ONCE, 1 [place] injection 4 00 :00 dose, On Medi delisa mg [place] 07/20/22 Branch at 0030, ANCELMO amoxicillin 2022-0 Yes [id number] 1{tbl} Take 1 Univers -clavulanat 3-02 tablet by ity of e 875-125 00:00: mouth [place] mg per 00 every 12 Medical tablet (twelve) Branch hours. ondansetron 2022-0 Yes [id number] 4mg Take 1 Univers 4 mg 3-02 tablet by ity of disintegrat 00:00: mouth [place] ing tablet 00 every 8 Medica l (eight) Branch hours as needed for Nausea and Vomiting (N/V). amoxicillin 2022-0 2022- No [id number] 1{tbl} Take 1 Univers -clavulanat -06 23-19 tablet by it y of e 875-125 00:00: 00:00 mouth [place] mg per 00 :00 every 12 Medical tablet (twelve) Branch hours. ondansetron 2022- No [id number] 4mg Take 1 Univers 4 mg 07-20 tablet by ity of disintegrat 00:00: 00:00 mouth [place] ing tablet 00 :00 every 8 Medica l (eight) Branch hours as needed for Nausea and Vomiting (N/V). phenazopyri 2022- No 200mg 200 mg, U nivers dine 05-23 Oral, ity of (PYRIDIUM) 17:15: 17:15 ONCE, 1 [place] tablet 200 00 :00 dose, On Medic al mg 05/23/22 Branch at 1115, ANCELMO phenazopyri Yes [id number] 200mg Take 1 Univers dine 200 mg -03 tablet by ity of tablet 00:00: mouth in [place] [address] the Medical morning Branch and 1 tablet at noon and 1 tablet in the evening. phenazopyri Yes [id number] 200mg Take 1 Univers dine 200 mg -03 tablet by ity of tablet 00:00: mouth in [place] 00 the Medical morning Branch and 1 tablet at noon and 1 tablet in the evening. phenazopyri 2022- No [id number] 200mg Take 1 Univers dine 200 mg 05-23 tablet by it y of tablet 00:00: 00:00 mouth in [place] 00 :00 the Medical morning Branch and 1 tablet at noon and 1 tablet in the evening. cephALEXin 2022- No [id number] 500mg Take 1 Univers (KEFLEX) 05-23 capsule by ity of 500 mg 00:00: 05:59 mouth in [place] capsule 00 :00 the [facility] morning Branch and 1 capsule at noon and 1 capsule in the evening. Do all this for 7 days. piperacilli 2021-05- No 3.375g 3.375 g, Univers n-tazobacta 0- IV ity of m (ZOSYN) 00:00: 00:43 [place]back, [place] 3.375 g in 00 :00 ONCE, 1 Medica l NaCl 0.9% dose, On Branch (NS) 50 mL Mon MINI-BAG 03/13/22 at 1900, Administer over 30 Minutes, 50 mL
Reas on for Anti-Infec tive: Documented Infection< br>Documen colby Infection Site: Abdominal< br>Duratio n of Therapy: 10 days iopamidol 2021-05- No [id number] 70mL 70 mL, U nivers (ISOVUE 0-24 10-24 Intravenou ity o f 370-500 mL) 23:30: 23:30 s, ONCE, 1 [place] injection 00 :00 dose, On Medica l 70 mL Mon Branch 03/13/22 at 1830, Routine ketorolac 2021-05- No 15mg 15 mg, Unive rs (TORADOL) 0-24 10-24 Slow IV ity of injection 22:00: 21:33 Push, [place] 15 mg 00 :00 ONCE, 1 Medical dose, On Branch Sun03/13/22 at 1700, Routine ondansetron 2021-05 Yes [id number] 4mg Take 1 Univers (ZOFRAN) 4 0-24 [...] Indication s: acute pain ondansetron 2021-05 Yes [id number] 4mg Take 1 Univers (ZOFRAN) 4 0-24 [...] Indication s: acute pain ondansetron 2021-05 Yes [id number] 4mg Take 1 Univers (ZOFRAN) 4 0-24 [...] Indication s: acute pain ondansetron 2021-05 Yes [id number] 4mg Take 1 Univers (ZOFRAN) 4 0-24 [...] Indication s: acute pain ondansetron 2021-05- No [id number] 4mg Take 1 Univers (ZOFRAN) 4 0-24 [...] Indication s: acute pain amoxicillin 2021-05- No [id number] 1{tbl} Take 1 Univers -clavulanat 0-24 11-04 [...] 01/21/22 at 2230, Routine iopamidol 2021- No [id number] 60mL 60 mL, U nivers (ISOVUE 01-22 [...] On Medi delisa mg 01/21/22 Branch at 2015, ANCELMO NaCl 0.9% 2021- No 500mL at 999 Univ ers (NS) bolus 01-22 mL/hr, 500 it y of infusion 01:15: 02:35 mL, IV [place] 500 mL 00 :00 Infusion, Medical ONCE, 1 Branch dose, On 01/21/22 at 2015, STAT cefdinir 2021-0 Yes [id number] 300mg Take 1 Un esme 300 mg 9-03 capsule by ity of capsule 00:00: mouth [place] 00 every 12 Medical (twelve) Branch hours. ketorolac 2021-0 Yes [id number] 10mg Take 1 U nivers 10 mg 9-03 tablet by ity of tablet 00:00: mouth [place] 00 every 6 Medical (six) Branch hours as needed for Pain (scale 4-6). ondansetron 2021-0 Yes [id number] 4mg Take 1 Univers (ZOFRAN) 4 9-03 tablet by ity of mg tablet 00:00: mouth [place] 00 every 8 Medical (eight) Branch hours as needed for Nausea and Vomiting (N/V). cefdinir 2021-0 Yes [id number] 300mg Take 1 Un esme 300 mg 9-03 capsule by ity of capsule 00:00: mouth [place] 00 every 12 Medical (twelve) Branch hours. ketorolac 2021-0 Yes [id number] 10mg Take 1 U nivers 10 mg 9-03 tablet by ity of tablet 00:00: mouth [place] 00 every 6 Medical (six) Branch hours as needed for Pain (scale 4-6). ondansetron 2021-0 Yes [id number] 4mg Take 1 Univers (ZOFRAN) 4 9-03 tablet by ity of mg tablet 00:00: mouth [place] 00 every 8 Medical (eight) Branch hours as needed for Nausea and Vomiting (N/V). cefdinir 202-0 Yes [id number] 300mg Take 1 Un esme 300 mg 9-03 capsule by ity of capsule 00:00: mouth [place] 00 every 12 Medical (twelve) Branch hours. ketorolac 2022-0 Yes [id number] 10mg Take 1 U nivers 10 mg 9-03 tablet by ity of tablet 00:00: mouth [place] 00 every 6 Medical (six) Branch hours as needed for Pain (scale 4-6). ondansetron 2022-0 Yes [id number] 4mg Take 1 Univers (ZOFRAN) 4 9-03 tablet by ity of mg tablet 00:00: mouth [place] 00 every 8 Medical (eight) Branch hours as needed for Nausea and Vomiting (N/V). cefdinir 2022-0 Yes [id number] 300mg Take 1 Un esme 300 mg 9-03 capsule by ity of capsule 00:00: mouth [place] 00 every 12 Medical (twelve) Branch hours. ketorolac 2022-0 Yes [id number] 10mg Take 1 U nivers 10 mg 9-03 tablet by ity of tablet 00:00: mouth [place] 00 every 6 Medical (six) Branch hours as needed for Pain (scale 4-6). ondansetron 2022-0 Yes [id number] 4mg Take 1 Univers (ZOFRAN) 4 9-03 tablet by ity of mg tablet 00:00: mouth [place] 00 every 8 Medical (eight) Branch hours as needed for Nausea and Vomiting (N/V). cefdinir 2022-0 Yes [id number] 300mg Take 1 Un esme 300 mg 9-03 capsule by ity of capsule 00:00: mouth [place] 00 every 12 Medical (twelve) Branch hours. ketorolac 2022-0 Yes [id number] 10mg Take 1 U nivers 10 mg 9-03 tablet by ity of tablet 00:00: mouth [place] 00 every 6 Medical (six) Branch hours as needed for Pain (scale 4-6). ondansetron 2022-0 Yes [id number] 4mg Take 1 Univers (ZOFRAN) 4 9-03 tablet by ity of mg tablet 00:00: mouth [place] 00 every 8 Medical (eight) Branch hours as needed for Nausea and Vomiting (N/V). cefdinir 2022-0 Yes [id number] 300mg Take 1 Un esme 300 mg 9-03 capsule by ity of capsule 00:00: mouth [place] 00 every 12 Medical (twelve) Branch hours. ketorolac 2021-0 Yes [id number] 10mg Take 1 U nivers 10 mg 9-03 tablet by ity of tablet 00:00: mouth [place] 00 every 6 Medical (six) Branch hours as needed for Pain (scale 4-6). ondansetron 2021-0 Yes [id number] 4mg Take 1 Univers (ZOFRAN) 4 9- tablet by ity of mg tablet 00:00: mouth [place] 00 every 8 Medical (eight) Branch hours as needed for Nausea and Vomiting (N/V). cefdinir 2021-2022- No [id number] 300mg Take 1 U nivers 300 mg 01-21 capsule by ity of capsule 00:00: 00:00 mouth [place] 00 :00 every 12 Medical (twelve) Branch hours. ketorolac 2021-0 3- No [id number] 10mg Take 1 Univers 10 mg 01-21- tablet by ity of tablet 00:00: 00:00 mouth [place] 00 :00 every 6 Medical (six) Branch hours as needed for Pain (scale 4-6). ondansetron 2021-0 3- No [id number] 4mg Take 1 Univers (ZOFRAN) 4 01-21- tablet by ity of mg tablet 00:00: 00:00 mouth [place] 00 :00 every 8 Medical (eight) Branch hours as needed for Nausea and Vomiting (N/V). cefdinir 2021-2- No [id number] 300mg Take 1 U nivers 300 mg 01-21 capsule by ity of capsule 00:00: 00:00 mouth [place] 00 :00 every 12 Medical (twelve) Branch hours for 10 days. ketorolac 2021-0 2- No [id number] 10mg Take 1 Univers 10 mg -07 27- tablet by ity of tablet 00:00: 00:00 mouth [place] 00 :00 every 6 Medical (six) Branch hours as needed for Pain (scale 4-6). ondansetron 2021-0 2- No [id number] 4mg Take 1 Univers (ZOFRAN) 4 -07 27- tablet by ity of mg tablet 00:00: 00:00 mouth [place] 00 :00 every 8 Medical (eight) Branch hours as needed for Nausea and Vomiting (N/V). traMADoL 2-0 Yes [id number] 50mg Take 1 Univers (ULTRAM) 50 6-08 tablet by ity of mg tablet 00:00: mouth [place] 00 every 6 Medical (six) Branch hours as needed for Pain (scale 7-10). Indication s: acute pain metroNIDAZO 2021-0 Yes [id number] 500mg Take 1 Univers LE 500 mg 6-08 tablet by ity o f tablet 00:00: mouth 2 (two) Medical times Branch daily. traMADoL 2021-0 Yes [id number] 50mg Take 1 Univers (ULTRAM) 50 6-08 tablet by ity of mg tablet 00:00: mouth [place] 00 every 6 Medical (six) Branch hours as needed for Pain (scale 7-10). Indication s: acute pain metroNIDAZO 2-0 Yes [id number] 500mg Take 1 Univers LE 500 mg 6-08 tablet by ity o f tablet 00:00: mouth (two) Medical times Branch daily. traMADoL 2-0 Yes [id number] 50mg Take 1 Univers (ULTRAM) 50 6-08 tablet by ity of mg tablet 00:00: mouth [place] 00 every 6 Medical (six) Branch hours as needed for Pain (scale 7-10). Indication s: acute pain metroNIDAZO 2-0 Yes [id number] 500mg Take 1 Univers LE 500 mg 6-08 tablet by ity o f tablet 00:00: mouth (two) Medical times Branch daily. traMADoL 2-0 Yes [id number] 50mg Take 1 Univers (ULTRAM) 50 6-08 tablet by ity of mg tablet 00:00: mouth [place] 00 every 6 Medical (six) Branch hours as needed for Pain (scale 7-10). Indication s: acute pain metroNIDAZO 2022-0 Yes [id number] 500mg Take 1 Univers LE 500 mg 6-08 tablet by ity o f tablet 00:00: mouth 2 (two) Medical times Branch daily. traMADoL 2022-0 Yes [id number] 50mg Take 1 Univers (ULTRAM) 50 6-08 tablet by ity of mg tablet 00:00: mouth [place] 00 every 6 Medical (six) Branch hours as needed for Pain (scale 7-10). Indication s: acute pain metroNIDAZO 2021-0 Yes [id number] 500mg Take 1 Univers LE 500 mg 6-08 tablet by ity o f tablet 00:00: mouth 2 00 (two) Medical times Branch daily. traMADoL 2021-0 Yes [id number] 50mg Take 1 Univers (ULTRAM) 50 6-08 tablet by ity of mg tablet 00:00: mouth [place] 00 every 6 Medical (six) Branch hours as needed for Pain (scale 7-10). Indication s: acute pain metroNIDAZO 2021-0 Yes [id number] 500mg Take 1 Univers LE 500 mg 6-08 tablet by ity o f tablet 00:00: mouth 2 00 (two) Medical times Branch daily. traMADoL 2021-0 Yes [id number] 50mg Take 1 Univers (ULTRAM) 50 6-08 tablet by ity of mg tablet 00:00: mouth 00 every 6 Medical (six) Branch hours as needed for Pain (scale 7-10). Indication s: acute pain metroNIDAZO 2021-0 Yes [id number] 500mg Take 1 Univers LE 500 mg 6-08 tablet by ity o f tablet 00:00: mouth 2 00 (two) Medical times Branch daily. traMADoL 2022- No [id number] 50mg Take 1 Univer s (ULTRAM) 50 - 03-19 tablet by it y of mg tablet 00:00: 00:00 mouth [place] 00 :00 every 6 Medical (six) Branch hours as needed for Pain (scale 7-10). Indication s: acute pain metroNIDAZO 2021-0 2022- No [id number] 500mg Take 1 Univers LE 500 mg 10-26-19 tablet by ity of tablet 00:00: 00:00 mouth 2 [place] 00 :00 (two) Medical times Branch daily. cefdinir 2021-2021- No [id number] 300mg Take 1 Univers 300 mg 10-26-16 capsule by ity of capsule 00:00: 04:59 mouth 2 [place] 00 :00 (two) Medical times Branch daily for 7 days. doxycycline 2021-0 2021- No [id number] 100mg Take 1 Univers hyclate 100 10-26-14 capsule by i ty of mg capsule 00:00: 00:00 mouth 2 [place] 00 :00 (two) Medical times Branch daily. ondansetron 2021- No [id number] 4mg Take 1 Univers 4 mg 10-26 tablet by ity of disintegrat 00:00: 00:[place] tablet 00 :00 every 8 Medica l (eight) Branch hours as needed for Nausea and Vomiting (N/V). amoxicillin 2020-05- No [id number] 1{tbl} Take 1 Univers -clavulanat 07-16 tablet by it y of e 875-125 00:00: 00:00 mouth [place] mg per 00 :00 every 12 Medical tablet (twelve) Branch hours. ofloxacin 2020-05- No [id number] 5[drp] Place 5 Univers 0.3 % otic 07-16 Drops in ity of drops 00:00: 00:00 right ear [place] 00 :00 2 (two) Medical times Branch daily. neomycin-po 2020-05- No [id number] 4[drp] Place 4 Univers lymyxin-hyd 07-13 43439 Drops in it y of rocortisone 00:00: 00:00 right ear [place] 3.5-10,000- 00 :00 4 (four) Medi delisa 1 times Branch mg/mL-unit/ daily. mL-% otic susp ciprofloxac 2020-05- No [id number] 500mg Take 1 Univers in HCl 500 07-13 [id number] tablet by it y of mg tablet 00:00: 00:00 mouth [place] :[place] (two) Medical times Branch daily. phenazopyri 2020-05- No [id number] 200mg Take 1 Univers dine 200 mg 06-27 tablet by it y of tablet 00:00: 00:00 mouth 3 [place] 00 :00 (three) Medical times Branch daily. guaiFENesin 2020-05- No [id number] 600mg Take 1 Univers (MUCINEX) 11-01 tablet by ity of 600 mg 00:00: 00:00 mouth [place] tablet 00 :00 every 12 Medical (twelve) Branch hours. Azithromyci Azithromyci 2019-05- No QD Azithromyc n 250 MG n 250 MG 07-07- in 250 MG 00:00: 00:00 00 :00 Azithromyci Azithromyci 2020-1 2020- No QD Azithromyc n 250 MG n 250 MG 07-07- in 250 MG 00:00: 00:00 00 :00 Protonix Protonix 2019-0 Yes Na Arriaza 1 tablet Common 08-21 [facility] 00:00: [facility] Omeprazole Omeprazole Yes Na Arriaza 1 capsule Common 08-21 [facility] 00:00: [facility] Omeprazole Omeprazole 2019- No 1{capsu BID Omeprazole 40 MG 40 MG 4- le} 40 MG 00:00: 00 Omeprazole Omeprazole 2019 No 1{capsu BID Omeprazole 40 MG 40 MG 4 le} 40 MG 00:00: 00 Omeprazole Omeprazole No 1{capsu BID Omeprazole 40 MG 40 MG 4- le} 40 MG 00:00: 00 Zoloft Zoloft Yes Na Arriaza 1 tablet Comm on [facility] Alprazolam Alprazolam Yes Na Arriaza 1 tablet Common [facility] Ondansetron Ondansetron Yes Na Arriaza as Common HCl HCl directed [facility] Tramadol Tramadol Yes Na Arriaza as Comm on HCl HCl directed [facility] Dicyclomine Dicyclomine Yes Na Arriaza 1 tablet Common HCl HCl [facility] Famotidine Famotidine Yes Na Arriaza 1 tablet Common at bedtime [facility] Probiotic Probiotic Yes Na Arriaza as Co mmon directed [facility] Cefdinir Cefdinir Yes Na Arriaza as Comm on directed [facility] Cefdinir Cefdinir No Cefdinir 300 MG 300 [...] e HCl 10 MG Immunizations Ordered Filled Date Status Comments Source Immunization Name Immunization Name Influenza Virus 2021-03-12 Completed Universit y of Vaccine Quad IM, 00:00:00 [facility] dical Preserv and ABX Branch Free 6 MO-64 YRS SARS-COV-2 COVID-19 2021-03-12 Completed Unive rsity of PFIZER VACCINE 00:00:00 [facility] Branch Influenza Virus 2021-03-12 Completed Universit y of Vaccine Quad IM, 00:00:00 [facility] dical Preserv and ABX Branch Free 6 MO-64 YRS SARS-COV-2 COVID-19 2021-03-12 Completed Unive rsity of PFIZER VACCINE 00:00:00 [facility] Branch Influenza Virus 2021-03-12 Completed Universit y of Vaccine Quad IM, 00:00:00 [place] [facility] dical Preserv and ABX Branch Free 6 MO-64 YRS SARS-COV-2 COVID-19 2021-03-12 Completed Unive rsity of PFIZER VACCINE 00:00:00 [facility] Influenza Virus 2021-03-12 Completed Universit y of Vaccine Quad IM, 00:00:00 [facility] dical Preserv and ABX Branch Free 6 MO-64 YRS SARS-COV-2 COVID-19 2021-03-12 Completed Unive rsity of PFIZER VACCINE 00:00:00 [facility] Influenza Virus 2021-03-12 Completed Universit y of Vaccine Quad IM, 00:00:00 [facility] dical Preserv and ABX Branch Free 6 MO-64 YRS SARS-COV-2 COVID-19 2021-03-12 Completed Unive rsity of PFIZER VACCINE 00:00:00 [facility] Influenza Virus 2021-03-12 Completed Universit y of Vaccine Quad IM, 00:00:00 [facility] dical Preserv and ABX Branch Free 6 MO-64 YRS SARS-COV-2 COVID-19 2021-03-12 Completed Unive rsity of PFIZER VACCINE 00:00:00 [facility] Influenza Virus 2021-03-12 Completed Universit y of Vaccine Quad IM, 00:00:00 [facility] dical Preserv and ABX Branch Free 6 MO-64 YRS SARS-COV-2 COVID-19 2021-03-12 Completed Unive rsity of PFIZER VACCINE 00:00:00 [facility] Influenza Virus 2021-03-12 Completed Universit y of Vaccine Quad IM, 00:00:00 [facility] dical Preserv and ABX Branch Free 6 MO-64 YRS SARS-COV-2 COVID-19 2021-03-12 Completed Unive rsity of PFIZER VACCINE 00:00:00 [facility] Influenza Virus 2021-03-12 Completed Universit y of Vaccine Quad IM, 00:00:00 [facility] dical Preserv and ABX Branch Free 6 MO-64 YRS SARS-COV-2 COVID-19 2021-03-12 Completed Unive rsity of PFIZER VACCINE 00:00:00 [facility] Influenza Virus 2021-03-12 Completed Universit y of Vaccine Quad IM, 00:00:00 [facility] dical Preserv and ABX Branch Free 6 MO-64 YRS (FLUCELVAX) SARS-COV-2 COVID-19 2021-03-12 Completed Unive rsity of PFIZER VACCINE 00:00:00 [facility] Influenza Virus 2020-04-01 Completed Universit y of Vaccine Quad .5 mL 00:00:00 [place] [facility] IM 6+ MO Branch Influenza Virus 2020-04-01 Completed Universit y of Vaccine Quad .5 mL 00:00:00 [place] [facility] IM 6+ MO Branch Influenza Virus 2020-04-01 Completed Universit y of Vaccine Quad .5 mL 00:00:00 [place] [facility] IM 6+ MO Branch Influenza Virus 2020-04-01 Completed Universit y of Vaccine Quad .5 mL 00:00:00 [place] [facility] IM 6+ MO Branch Influenza Virus 2020-04-01 Completed Universit y of Vaccine Quad .5 mL 00:00:00 [place] [facility] IM 6+ MO Branch Influenza Virus 2020-04-01 Completed Universit y of Vaccine Quad .5 mL 00:00:00 [place] [facility] IM 6+ MO Branch Influenza Virus 2020-04-01 Completed Universit y of Vaccine Quad .5 mL 00:00:00 [place] [facility] IM 6+ MO Branch Influenza Virus 2020-04-01 Completed Universit y of Vaccine Quad .5 mL 00:00:00 [place] [facility] IM 6+ MO Branch Influenza Virus 2020-04-01 Completed Universit y of Vaccine Quad .5 mL 00:00:00 [place] [facility] IM 6+ MO Branch Influenza Virus 2020-04-01 Completed Universit y of Vaccine Quad .5 mL 00:00:00 [place] [facility] IM 6+ MO Branch (FLUZONE/FLULAVAL/F LUARIX) Kenalog Kenalog 2019-07-29 Completed [facility] - (Triamcinolone) (Triamcinolone) 11:43:00 [facility] Oswaldoalog Oswaldoalog 2019-07-29 Completed [facility] - (Triamcinolone) (Triamcinolone) 11:43:00 [facility] Oswaldoalog Oswaldoalog 2019-07-29 Completed [facility] - (Triamcinolone) (Triamcinolone) 11:43:00 [facility] Oswaldoalog Oswaldoalog 2018-07-15 Completed [facility] - (Triamcinolone) (Triamcinolone) 11:45:00 [facility] Marlon Chaconalog 2018-07-15 Completed [facility] - (Triamcinolone) (Triamcinolone) 11:45:00 [facility] Marlon Mason 2018-07-15 Completed [facility] - (Triamcinolone) (Triamcinolone) 11:45:00 [facility] Afluria Afluria 2018-06-19 Completed [facility] - 10:52:00 [facility] Afluria Afluria 2018-06-19 Completed [facility] - 10:52:00 [facility] Afluria Afluria 2018-06-19 Completed [facility] - 10:52:00 [facility] Afluria Afluria 2018-06-19 Completed [facility] - 00:00:00 [facility] Pneumococcal 2015-07-09 Completed University o f Polysaccharide, 00:00:00 [place] [facility] ical PPSV23 (PNEUMOVAX) Branch Influenza Virus 2015-07-09 Completed Universit y of Vaccine Quad IM 3+ 00:00:00 [facility] Pneumococcal 2015-07-09 Completed University o f Polysaccharide, 00:00:00 [place] [facility] ical PPSV23 (PNEUMOVAX) Branch Influenza Virus 2015-07-09 Completed Universit y of Vaccine Quad IM 3+ 00:00:00 [facility] Pneumococcal 2015-07-09 Completed University o f Polysaccharide, 00:00:00 [place] [facility] ical PPSV23 (PNEUMOVAX) Branch Influenza Virus 2015-07-09 Completed Universit y of Vaccine Quad IM 3+ 00:00:00 [facility] Pneumococcal 2015-07-09 Completed University o f Polysaccharide, 00:00:00 [facility] ical PPSV23 (PNEUMOVAX) Branch Influenza Virus 2015-07-09 Completed Universit y of Vaccine Quad IM 3+ 00:00:00 [facility] Pneumococcal 2015-07-09 Completed University o f Polysaccharide, 00:00:00 [facility] ical PPSV23 (PNEUMOVAX) Branch Influenza Virus 2015-07-09 Completed Universit y of Vaccine Quad IM 3+ 00:00:00 [facility] Pneumococcal 2015-07-09 Completed University o f Polysaccharide, 00:00:00 [place] [facility] ical PPSV23 (PNEUMOVAX) Branch Influenza Virus 2015-07-09 Completed Universit y of Vaccine Quad IM 3+ 00:00:00 [facility] Pneumococcal 2015-07-09 Completed University o f Polysaccharide, 00:00:00 [place] [facility] ical PPSV23 (PNEUMOVAX) Branch Influenza Virus 2015-07-09 Completed Universit y of Vaccine Quad IM 3+ 00:00:00 [facility] Pneumococcal 2015-07-09 Completed University o f Polysaccharide, 00:00:00 [place] [facility] ical PPSV23 (PNEUMOVAX) Branch Influenza Virus 2015-07-09 Completed Universit y of Vaccine Quad IM 3+ 00:00:00 [facility] Pneumococcal 2015-07-09 Completed University o f Polysaccharide, 00:00:00 [facility] ical PPSV23 (PNEUMOVAX) Branch Influenza Virus 2015-07-09 Completed Universit y of Vaccine Quad IM 3+ 00:00:00 [facility] Pneumococcal 2015-07-09 Completed University o f Polysaccharide, 00:00:00 [facility] ical PPSV23 (PNEUMOVAX) Branch Influenza Virus 2015-07-09 Completed Universit y of Vaccine Quad IM 3+ 00:00:00 [facility] Pneumococcal Unknown Completed University o f Polysaccharide, [facility] ical PPSV23 (PNEUMOVAX) Branch Influenza Virus Unknown Completed Universit y of Vaccine Quad IM 3+ [facility] Influenza Virus Unknown Completed Universit y of Vaccine Quad .5 mL [facility] 6+ MO Branch (FLUZONE/FLULAVAL/F LUARIX) Influenza Virus Unknown Completed Universit y of Vaccine Quad IM, [facility] dical Preserv and ABX Branch Free 6 MO-64 YRS (FLUCELVAX) SARS-COV-2 COVID-19 Unknown Completed Unive rsity of PFIZER VACCINE [facility] Pneumococcal Unknown Completed University o f Polysaccharide, [facility] ical PPSV23 (PNEUMOVAX) Branch Influenza Virus Unknown Completed Universit y of Vaccine Quad IM 3+ [place] [facility] YRS Branch Influenza Virus Unknown Completed Universit y of Vaccine Quad .5 mL [place] [facility] IM 6+ MO Branch (FLUZONE/FLULAVAL/F LUARIX) Influenza Virus Unknown Completed Universit y of Vaccine Quad IM, [facility] dical Preserv and ABX Branch Free 6 MO-64 YRS (FLUCELVAX) SARS-COV-2 COVID-19 Unknown Completed Unive rsity of PFIZER VACCINE [facility] Branch Pneumococcal Unknown Completed University o f Polysaccharide, [facility] ical PPSV23 (PNEUMOVAX) Branch Influenza Virus Unknown Completed Universit y of Vaccine Quad IM 3+ [facility] YRS Branch Influenza Virus Unknown Completed Universit y of Vaccine Quad .5 mL [place] [facility] IM 6+ MO Branch (FLUZONE/FLULAVAL/F LUARIX) Pneumococcal Unknown Completed University o f Polysaccharide, [facility] ical PPSV23 (PNEUMOVAX) Branch Influenza Virus Unknown Completed Universit y of Vaccine Quad IM 3+ [facility] YRS Branch Influenza Virus Unknown Completed Universit y of Vaccine Quad .5 mL [place] [facility] IM 6+ MO Branch (FLUZONE/FLULAVAL/F LUARIX) Influenza Virus Unknown Completed Universit y of Vaccine Quad IM, [facility] dical Preserv and ABX Branch Free 6 MO-64 YRS (FLUCELVAX) SARS-COV-2 COVID-19 Unknown Completed Unive rsity of PFIZER VACCINE [facility] Vital Signs Vital Name Observation Time Observation Value Comments Source Systolic blood 2023-03-07 02:30:00 135 mm[Hg] Univer sity of pressure [facility] Diastolic blood 2023-03-07 02:30:00 84 mm[Hg] Unive rsity of pressure [facility] Heart rate 2023-03-07 02:30:00 61 /min [facility] Body temperature 2023-03-07 02:30:00 36.67 Laura [facility] Respiratory rate 2023-03-07 02:30:00 18 /min [facility] Oxygen saturation in 2023-03-07 02:30:00 97 /min [facility] Arterial blood by [facility] Pulse oximetry Branch Body height 2023-03-06 19:55:00 152.4 cm [facility] [place] [facility] Body weight 2023-03-06 19:55:00 54.432 kg [facility] [place] [facility] BMI 2023-03-06 19:55:00 23.44 kg/m2 [facility] [place] [facility] Systolic blood 2023-02-03 19:12:00 109 mm[Hg] Univer sity of pressure [place] [facility] Diastolic blood 2023-02-03 19:12:00 67 mm[Hg] Unive rsity of pressure [place] [facility] Heart rate 2023-02-03 19:12:00 66 /min [facility] [place] [facility] Respiratory rate 2023-02-03 19:12:00 10 /min Univ ersity [facility] [place] [facility] Oxygen saturation in 2023-02-03 19:12:00 99 /min University of Arterial blood by [place] [employer] delisa Pulse oximetry Branch Body temperature 2023-02-03 17:51:00 37.28 Laura [facility] [place] [facility] Body height 2023-02-03 17:51:00 152.4 cm [facility] [place] [facility] Body weight 2023-02-03 17:51:00 54.432 kg [facility] [place] [facility] BMI 2023-02-03 17:51:00 23.44 kg/m2 [facility] [place] [facility] Systolic blood 2022-10-18 02:25:00 99 mm[Hg] Univer sity of pressure [place] [facility] Diastolic blood 2022-10-18 02:25:00 60 mm[Hg] Unive rsity of pressure [place] [facility] Heart rate 2022-10-18 02:25:00 58 /min [facility] [place] [facility] Respiratory rate 2022-10-18 02:25:00 16 /min Univ ersity [facility] [place] [facility] Oxygen saturation in 2022-10-18 02:25:00 96 /min University of Arterial blood by [place] [employer] delisa Pulse oximetry Branch Body temperature 2022-10-17 22:33:00 37 Laura [facility] [place] [facility] Body height 2022-10-17 22:33:00 152.4 cm [facility] [place] [facility] Body weight 2022-10-17 22:33:00 58.605 kg [facility] [place] [facility] BMI 2022-10-17 22:33:00 25.23 kg/m2 [facility] [place] [facility] Systolic blood 2022-08-06 06:45:00 161 mm[Hg] Univer sity of pressure [place] [facility] Diastolic blood 2022-08-06 06:45:00 98 mm[Hg] Unive rsity of pressure [place] [facility] Heart rate 2022-08-06 06:45:00 124 /min [facility] [place] [facility] Body temperature 2022-08-06 06:45:00 37.22 Laura [facility] [place] [facility] Respiratory rate 2022-08-06 06:45:00 16 /min Univ ers[facility] [place] [facility] Body height 2022-08-06 06:45:00 157.5 cm [facility] [place] [facility] Body weight 2022-08-06 06:45:00 58.968 kg [facility] [place] [facility] BMI 2022-08-06 06:45:00 23.78 kg/m2 [facility] [place] [facility] Oxygen saturation in 2022-08-06 06:45:00 99 /min University of Arterial blood by [place] [employer] delisa Pulse oximetry Branch Systolic blood 2022-07-20 07:06:00 116 mm[Hg] Univer sity of pressure [place] [facility] Diastolic blood 2022-07-20 07:06:00 72 mm[Hg] Unive rsity of pressure [place] [facility] Heart rate 2022-07-20 07:06:00 68 /min [facility] [place] [facility] Body temperature 2022-07-20 07:06:00 36.78 Laura [facility] [place] [facility] Respiratory rate 2022-07-20 07:06:00 16 /min Univ ers[facility] [place] [facility] Body weight 2022-07-20 07:06:00 61.236 kg [facility] [place] [facility] BMI 2022-07-20 07:06:00 24.69 kg/m2 [facility] [place] [facility] Oxygen saturation in 2022-07-20 07:06:00 99 /min University of Arterial blood by [place] [employer] delisa Pulse oximetry Branch Systolic blood 2022-05-23 16:16:00 112 mm[Hg] Univer sity of pressure [place] [facility] Diastolic blood 2022-05-23 16:16:00 78 mm[Hg] Unive rsity of pressure [place] [facility] Heart rate 2022-05-23 16:16:00 76 /min [facility] [place] [facility] Body temperature 2022-05-23 16:16:00 37.11 Laura [facility] [place] [facility] Respiratory rate 2022-05-23 16:16:00 20 /min [facility] [place] [facility] Body height 2022-05-23 16:16:00 157.5 cm [facility] [place] [facility] Body weight 2022-05-23 16:16:00 58.968 kg [facility] [place] [facility] BMI 2022-05-23 16:16:00 23.78 kg/m2 [facility] [place] [facility] Oxygen saturation in 2022-05-23 16:16:00 98 /min University of Arterial blood by [place] [employer] delisa Pulse oximetry Branch Systolic blood 2022-03-14 00:39:00 108 mm[Hg] Univer sity of pressure [place] [facility] Diastolic blood 2022-03-14 00:39:00 72 mm[Hg] Unive rsity of pressure [place] [facility] Heart rate 2022-03-14 00:39:00 71 /min [facility] [place] [facility] Respiratory rate 2022-03-14 00:39:00 21 /min Univ [facility] [place] [facility] Oxygen saturation in 2022-03-14 00:39:00 97 /min University of Arterial blood by [facility] Pulse oximetry Branch Body temperature 2022-03-13 20:20:00 37 Laura [facility] [place] [facility] Body height 2022-03-13 20:20:00 165.1 cm [facility] [place] [facility] Body weight 2022-03-13 20:20:00 58.968 kg [facility] [place] [facility] BMI 2022-03-13 20:20:00 21.63 kg/m2 [facility] [place] [facility] Systolic blood 2022-01-22 02:49:00 115 mm[Hg] Univer sity of pressure [place] [facility] Diastolic blood 2022-01-22 02:49:00 77 mm[Hg] Unive rsity of pressure [place] [facility] Heart rate 2022-01-22 02:49:00 74 /min [facility] [place] [facility] Respiratory rate 2022-01-22 02:49:00 16 /min Univ [facility] [place] [facility] Oxygen saturation in 2022-01-22 02:49:00 99 /min [facility] Arterial blood by [facility] Pulse oximetry Branch Body temperature 2022-01-22 00:43:00 36.39 Laura [facility] Body weight 2022-01-22 00:43:00 58.968 kg Universi ty [facility] BMI 2022-01-22 00:43:00 25.39 kg/m2 Universi ty [facility] Systolic blood 2021-11-01 20:30:00 117 mm[Hg] Univer sity of [facility] Diastolic blood 2021-11-01 20:30:00 66 mm[Hg] Unive rsity of [facility] Heart rate 2021-11-01 20:30:00 62 /min [facility] Body temperature 2021-11-01 20:30:00 36.33 Laura [facility] Respiratory rate 2021-11-01 20:30:00 16 /min [facility] Body height 2021-11-01 20:30:00 152.4 cm Universi ty [facility] Body weight 2021-11-01 20:30:00 58.514 kg [facility] BMI 2021-11-01 20:30:00 25.19 kg/m2 [facility] blood pressure 2020-05-06 11:20:00 78 mm[Hg] [facility] - diastolic [facility] height 2020-05-06 11:20:00 60 [in_i] Common [facility] weight 2020-05-06 11:20:00 120 [lb_av] Common [facility] temperature 2020-05-06 11:20:00 98.5 [degF] [facility] bmi 2020-05-06 11:20:00 23.43 kg/m2 Common [facility] blood pressure 2020-05-06 11:20:00 125 mm[Hg] [facility] - systolic [facility] Procedures Procedure Date / Time Performing Clinician Source Performed CT HEAD WO CONTRAST 2023-03-06 21:50:00 Brenna Samuel [facility] ASSIGNMENT OF BENEFITS 2023-03-06 21:20:15 Doctor Unassigned, No [facility] Branch CONSENT/REFUSAL FOR 2023-03-06 19:45:09 Doctor Unassigned, No [facility] [place] DI[facility]NOSIS AND TREATMENT Name [facility] Branch CT ABDOMEN PELVIS W 2023-02-03 18:23:00 Maria [facility] CONTRAST Medical Branch LIPASE 2023-02-03 18:02:00 Eve [facility] COMP. METABOLIC PANEL 2023-02-03 18:02:00 Maria Victoria Prado [facility] ([id number]) Medical Branch CBC WITH DIFF 2023-02-03 18:02:00 Eve [facility] URINALYSIS 2023-02-03 18:02:00 Eve [facility] CONSENT/REFUSAL FOR 2023-02-03 17:46:56 Doctor Unassigned, No [facility] [place] [facility] TREATMENT Name [facility] RAPID STREP SCREEN FOR 2022-10-17 23:55:00 Maggie [facility] GROUP A [facility] RAPID INFLUENZA A/B 2022-10-17 23:55:00 Maggie Catherine [facility] COVID-19 (ID NOW RAPID 2022-10-17 23:55:00 Maggie [facility] TESTING) Medical Branch URINALYSIS 2022-10-17 22:49:00 Stephanie Tran [facility] [facility] CONSENT/REFUSAL FOR 2022-10-17 22:26:18 Doctor Unassigned, No [facility] [place] [facility] ED SPLINT APPLICATION 2022-08-06 07:55:17 Alesia Lechuga [facility] CONSENT/REFUSAL FOR 2022-08-06 06:39:48 Doctor Unassigned, No [facility] [place] [facility] Name [facility] Branch COMP. METABOLIC PANEL 2022-07-20 06:32:00 Mehreen Marie [facility] ([id number]) Medical Branch CBC WITH DIFF 2022-07-20 06:32:00 Mehreen Marie [facility] Branch URINALYSIS 2022-07-20 06:32:00 Mehreen Marie [facility] RAPID INFLUENZA A/B 2022-07-20 06:32:00 Mehreen Marie [facility] Medical Branch COVID-19 (ID NOW RAPID 2022-07-20 06:32:[address] [facility] TESTING) Medical Branch CONSENT/REFUSAL FOR 2022-07-20 05:24:16 Doctor [facility] Name Medical Branch URINALYSIS 2022-05-23 [facility]:09[facility] FOR 2022-05-23 16:02:43 Doctor [facility], [facility] Name Medical Branch CT ABDOMEN PELVIS W 2022-03-13 22:32:00 Arianne Childress [facility] CONTRAST Medical Branch LIPASE 2022-03-13 21:32:00 Arianne Childress [facility] HEPATIC FUNCTION PANEL 2022-03-13 21:32:00 Arianne Childress [facility] ([id number]) (ALB,T.PRO,BILI Medical Branch T,BU/BC,ALT,AST,ALK PHOS) BASIC METABOLIC PANEL 2022-03-13 21:32:00 Arianne Childress [facility] (NA, K, CL, CO2, Medical Branch GLUCOSE, BUN, CREATININE, CA) CBC WITH DIFF 2022-03-13 21:32:00 Arianne Childress [facility] URINALYSIS 2022-03-13 20:25:00 Singer [facility] CONSENT/REFUSAL FOR 2022-03-13 19:50:11 Doctor Un[facility]igned, [facility] Name Medical Branch CT ABDOMEN PELVIS W 2022-01-22 01:34:54 Jimmie [facility] CONTRAST Roseanne Medical Branch LIPASE 2022-01-22 01:17:00 Jimmie [facility] COMP. METABOLIC PANEL 2022-01-22 01:17:00 Brenna Samuel [facility] ([id number]) [facility] CBC WITH DIFF 2022-01-22 01:17:[address] [facility] URINALYSIS 2022-01-22 00:50:[address] [facility] NOTICE OF PRIVACY 2022-01-22 00:38:08 Doctor Unassigned, No [facility] PRACTICES Name [facility] Branch CONSENT/REFUSAL FOR 2022-01-22 00:36:29 Doctor Unassigned, No [facility] DIAGNOSIS AND TREATMENT Name [facility] PAP SMEAR-LIQUID 2021-11-01 21:11:00 Ronit Santiago [facility] Encounters Start End Encounter Admission Attending Care Care Encounter Source Date/Time Date/Time Type Type Clinicians Facility Department ID 2021-06-15 Outpatient See, STLMLC STLMLC [id number] Common 12:14:07 Juan 59631 [facility] 2021-06-15 Outpatient See, STLMLC STLMLC [id number] Common 11:33:20 Juan 36333 [facility] 2021-06-15 Outpatient See, STLMLC STLMLC [id number] Common 11:29:10 Juan 08743 [facility] 2021-06-15 Outpatient See, STLMLC STLMLC [id number] Common 11:27:31 Juan 11604 [facility] 2021-06-15 Outpatient See, STLMLC STLMLC [id number] Common 11:27:13 Juan 22299 [facility] 2021-06-15 Outpatient See, STLMLC STLMLC [id number] Common 11:12:57 Juan 63418 [facility] 2021-03-22 Emergency [facility] [id number] Univers 08:37:29 ity [facility] 2021-03-21 Emergency [facility] [id number] Univers 10:37:33 ity [facility] 2021-03-20 Emergency [facility] [id number] Univers 21:58:58 ity of [facility] 2021-03-20 Emergency [facility] [id number] Univers 11:47:40 ity of [facility] 2021-03-20 Emergency [facility] [id number] Univers 05:05:20 ity of [facility] 2021-03-19 Emergency [facility] [id number] Univers 21:53:05 ity of [facility] 2021-03-19 Emergency [facility] [id number] Univers 11:06:33 ity of [facility] 2021-03-18 Emergency [facility] [id number] Univers 20:23:30 ity of [facility] 2021-03-18 Emergency [facility] [id number] Univers 03:19:07 ity of [facility] 2021-03-17 Emergency [facility] [id number] Univers 13:12:53 ity of [facility] 2023-03-20 2023-03-20 Outpatient GC_[id number] PRIV PRIV [id number] [facility] 00:00:00 00:00:00 diyala_S [id number] Medic al 2023-03-06 2023-03-06 Emergency X [facility] ERT [id number] Univers 14:57:00 21:46:00 , BRENNA ity of [facility] 2023-03-06 2023-03-06 [facility] 1.2.840.114 [id number] Univers 14:57:00 21:46:00 , Brenna [place] [id number] i ty of Roseanne SILVA 4.2.7.2.686 [facility] [phone] [facility] 084 Branch 2023-02-03 2023-02-03 Emergency X [facility] ERT [id number] Univers 12:53:00 14:49:00 , MARIA VICTORIA ity of [facility] 2023-02-03 2023-02-03 Emergency [facility] 1.2.840.114 [id number] Univers 12:53:00 14:49:00 , Maria Victoria [place] [id number] i ty of [place] 4.2.7.2.686 [facility] [id number] [address] 2022-10-17 2022-10-17 Emergency X Maggie CATHERINE [facility] ERT [id number] Univers 17:35:00 21:37:00 ity of [facility] 2022-10-17 2022-10-17 Emergency Maggie Catherine [facility] 1.2.840.114 [id number] Univers 17:35:00 21:37:00 Doreen [place] [id number] i ty of [place] 4.2.7.2.686 [facility] [phone] [address] 2022-10-10 2022-10-10 Outpatient R DOMINIC [facility] [id number] Univers 09:10:00 09:10:00 [facility] 2022-08-24 2022-08-24 Patient Doctor [facility] 1.2.840.114 [id number] Univers 00:00:00 00:00:00 Secure Msg Unassigned, [facility] 350.1.13.10 ity of [place] 4.2.7.2.686 Edward as CORINE?BLEA [phone] Dc vincent DUDLEYRYLEE [address] [place] [address] MEDICAL OFFICE BUILDING 2022-08-06 2022-08-06 Emergency [facility] [id number] Univers 01:52:00 03:25:00 [facility] 2022-08-06 2022-08-06 Emergency [facility] 1.2.886.191 [id number] Univers 01:52:00 03:25:00 Alesia [place] [id number] ity [facility] 4.2.7.2.686 [facility] [phone] [address] 2022-07-19 2022-07-20 Emergency [facility] ERT [id number] Univers 23:34:00 02:20:00 MEHREEN ity [facility] 2022-07-19 2022-07-20 Nataly Marie [facility] 1.2.001.634 [id number] Univers 23:34:00 02:20:00 Mehreen [place] [id number] i ty [facility] 4.2.7.2.686 [facility] [id number] [facility] 084 Branch 2022-05-23 2022-05-23 Emergency [facility] ERT [id number] Univers 10:17:00 12:52:00 RICHARDSON ity of [facility] 2022-05-23 2022-05-23 Emergency [facility] 1.2.679.996 [id number] Univers 10:17:00 12:52:00 Richardson [place] 350.1.13.10 i ty of [facility] 4.2.7.2.686 [facility] [phone] [place] 070574 [place] 2022-05-23 2022-05-23 Orders Doctor HOANG 1.2.840.114 [id number] Univers 00:00:00 00:00:00 Only Unassigned, KENDY 350.1.13.10 ity of [place] [facility] 4.2.7.2.686 Edward [phone] [facility] 009 [place] 2022-03-13 2022-03-13 Emergency [facility] ERT [id number] Univers 15:26:00 19:56:00 ARIANNE itcosta [facility] 2022-03-13 2022-03-13 Emergency [facility] 1.2.840.114 [id number] Univers 15:26:00 19:56:00 Arianne [place] 350.1.13.10 i ty of [place] 4.2.7.2.686 [facility] [id number] [address] 2022-01-30 2022-01-30 Outpatient [facility] [id number] Univers 07:12:34 23:59:00 RONIT nix o f [facility] 2022-01-30 2022-01-30 [facility] 1.2.840.114 [id number] Univers 07:12:34 23:59:00 Encounter Ronit R SPECIALTY [id number] ity of CARE 4.2.7.2.686 [facility] AT [phone] Dc vincent BARTLETT [address] [place] [address] 2022-01-21 2022-01-21 Emergency X [facility] ERT [id number] Univers 19:52:00 21:51:00 , BRENNA nix [facility] 2022-01-21 2022-01-21 Emergency [facility] 1.2.840.114 [id number] Univers 19:52:00 21:51:00 , Brenna PAREKHLUIS ALBERTO 350.1.13.10 i ty of [place] S[place] 4.2.7.2.686 [facility] [phone] [address] 2021-11-01 2021-11-01 Office [facility] 1.2.840.114 [id number] Univers 14:30:00 16:08:12 Visit Ronit Bejarano CRISIS INTERVENTION SPECIALIST 350.1.13.10 ity [facility] 4.2.7.2.686 Edward as MATERNAL [phone] Med ical & CHILD 107 [facility] [place] 2021-11-01 2021-11-01 Outpatient R PAMELA [facility] [id number] Univers 14:30:00 16:08:12 RONIT nix o f [facility] 2021-11-01 2021-11-01 Outpatient R KEISHA, [facility] [id number] Univers 09:30:00 09:30:00 ISABELL nguyễny o f [facility] 2021-10-26 2021-10-26 Emergency X [facility] ERT [id number] Univers 19:30:00 23:49:00 DAYANNA nix [facility] 2021-10-26 2021-10-26 Emergency [facility] 1.2.103.459 [id number] Univers 19:30:00 23:49:00 Dayanna [place] 350.1.13.10 ity elizabeth SIL[place] 4.2.7.2.686 [facility] [phone] [address] 2021-05-16 2021-05-16 Patient Doctor HOANG 1.2.840.114 [id number] Univers 00:00:00 00:00:00 Secure Msg Unassigned, KENDY [id number] ity of [place] [facility] 4.2.7.2.686 Edward as [phone] [facility] 019 Branch 2021-05-15 2021-05-15 Emergency X [facility] ERT [id number] Univers 02:02:00 13:30:00 DELL nix [facility] 2021-05-15 2021-05-15 Emergency [facility] 1.2.384.902 [id number] Univers 02:02:00 13:30:00 Dell [place] 350.1.13.10 i ty of [place] 4.2.7.2.686 [facility] [id number] [place] 070574 Branch 2021-05-12 2021-05-12 Emergency X [facility] ERT [id number] Univers 01:32:00 03:32:00 DELL nix [facility] 2021-05-12 2021-05-12 Emergency [facility] 1.2.533.847 [id number] Univers 01:32:00 03:32:00 Dell [place] 350.1.13.10 i ty of [place] 4.2.7.2.686 [facility] [phone] [address] 2021-05-12 2021-05-12 Orders Doctor HOANG 1.2.840.114 [id number] Univers 00:00:00 00:00:00 Only Unassigned, KENDY 350.1.13.10 ity of [place] [facility] 4.2.7.2.686 Edward as [phone] [facility] 009 Branch 2021-04-26 2021-04-26 Emergency X [facility] ERT [id number] Univers 16:40:00 18:47:00 DANIEL nix [facility] 2021-04-26 2021-04-26 Emergency [facility] 1.2.840.114 [id number] Univers 16:40:00 18:47:00 Daneil [place] 350.1.13.10 i ty of [place] 4.2.7.2.686 [facility] [phone] [place] 070574 Branch 2021-03-10 2021-03-12 Emergency Jennifer Manzano [facility] 1.2.8 40.114 [id number] Univers 12:55:00 18:40:00 Onur Goldstein [facility] 350.1.13.10 ity of [place].2.686 [place] [phone] [facility] 114 Branch (CLC) 2020-12-20 2020-12-20 Outpatient [facility] [id number] Univers 00:00:00 00:00:00 ity of [facility] 2020-12-12 2020-12-13 Emergency Bruce, Maggie [facility] 1.2.840.114 [id number] Univers 21:14:00 01:55:00 Doreen [place] 350.1.13.10 i ty of [place].2.7.2.686 [place] [phone] [address] 2020-10-15 2020-10-15 Emergency X , [facility] ERT [id number] Univers 11:58:00 15:51:00 RICHARDSON ity [facility] 2020-10-15 2020-10-15 Emergency Thompson, TRAUMA 1.2.612.880 [id number] Univers 11:58:00 15:51:00 [facility] 350.1.13.10 it y of 4.2.7.2.686 [place] [phone] [facility] 014 Branch 2020-09-01 2020-09-01 Outpatient R [facility] [id number] Univers 13:00:00 13:00:00 ity [facility] 2020-08-27 2020-08-27 Emergency [facility] 1.2.123.623 [id number] Univers 09:15:00 13:06:00 Dell [place] 350.1.13.10 i ty of [place] 4.2.7.2.686 [place] [phone] [address] 2020-08-27 2020-08-27 Orders Doctor BOLTON 1.2.840.114 [id number] Univers 00:00:00 00:00:00 Only Unassigned, KENDY 350.1.13.10 ity of [place] [facility] 4.2.7.2.686 Edward as [phone] [facility] 009 Branch 2020-07-30 2020-07-30 Telephone HOANG Becerra 1.2.129.756 [id number] Univers 00:00:00 00:00:00 Glenis LARRY 350.1.13.10 i ty of [facility] 4.2.7.2.686 Edward as [phone] [facility] 019 Branch 2020-07-28 2020-07-29 Emergency Maggie Catherine [facility] 1.2.840.114 [id number] Univers 20:54:00 00:37:00 Doreen [place] 350.1.13.10 i ty of [place] 4.2.7.2.686 [place] [facility] [phone] [address] 2020-07-29 2020-07-29 Patient Doctor HOANG 1.2.840.114 [id number] Univers 00:00:00 00:00:00 Secure Msg UnassignedKENDY 350.1.13.10 ity of [place] [facility] 4.2.7.2.686 Edward as [phone] [facility] 019 Branch 2020-06-24 2020-06-24 Emergency [facility] 1.2.343.698 [id number] Univers 14:22:00 16:17:00 Mehreen [place] 350.1.13.10 i ty of [place] 4.2.7.2.686 [place] [facility] [phone] [address] 2020-06-24 2020-06-24 Orders Doctor HOANG 1.2.840.114 [id number] Univers 00:00:00 00:00:00 Only Unassigned, KENDY 350.1.13.10 ity of [place] [facility] 4.2.7.2.686 Edward as [phone] [facility] 009 Branch 2020-06-23 2020-06-23 (TEL) STLMLC STLC [id number] Co mmon 00:00:00 00:00:00 [facility] 2020-05-25 2020-05-25 Outpatient Carlee TRAN [facility] [id number] Univers 00:00:00 00:00:00 CLIVE nix of [facility] 2020-05-06 2020-05-06 OFFICE [facility] [id number] Co mmon 00:00:00 00:00:00 VISIT Spirit ESTAB PT - CHI LEVEL 2 [facility] 2020-05-05 2020-05-05 (TEL) [facility] [id number] Co mmon 00:00:00 00:00:00 Spirit - [facility] 2020-05-03 2020-05-03 Emergency [facility] 1.2.840.114 [id number] Univers 12:03:00 16:07:00 [facility] 350.1.13.10 it y of [place] 4.2.7.2.686 [place] [phone] [address] ([facility]) 2020-04-05 2020-04-05 Telephone [facility] 1.2.840.114 [id number] Univers 00:00:00 00:00:00 Clive Munguia CRISIS INTERVENTION SPECIALIST 350.1.13.10 it y of [facility] 4.2.7.2.686 Edward as MATERNAL [phone] Med ical & CHILD [address] [place] [address] 2020-04-01 2020-04-01 Office [facility] 1.2.156.566 [id number] Univers 14:01:09 15:15:07 Visit Clive Munguia CRISIS INTERVENTION SPECIALIST 350.1.13.10 it y of REGIONAL 4.2.7.2.686 Edward as MATERNAL [phone] [address] 2020-04-01 2020-04-01 Outpatient [facility] [id number] Univers 13:30:00 13:30:00 CLIVE nix of [facility] 2020-04-01 2020-04-01 Orders Doctor HOANG 1.2.840.114 [id number] Univers 00:00:00 00:00:00 Only Unassigned, KENDY 350.1.13.10 ity of [place] [facility] 4.2.7.2.686 Edward as [phone] [address] 2020-02-20 2020-02-20 Letter Delia Perkins 1.2.840.114 [id number] Univers 00:00:00 00:00:00 (Out) KENDY 350.1.13.10 it y of HOSPITAL 4.2.7.2.686 Edward as [phone] [facility] 019 [place]ita 2020-02-18 2020-02-18 Emergency Maggie Catherine [facility] 1.2.840.114 [id number] Univers 20:02:00 21:40:00 Doreen [place] 350.1.13.10 i ty of [place] 4.2.7.2.686 [place] [phone] [facility] 084 [place] 2020-02-18 2020-02-18 Orders Doctor HOANG 1.2.840.114 [id number] Univers 00:00:00 00:00:00 Only Unassigned, KENDY 350.1.13.10 ity of [place] [facility] 4.2.7.2.686 Edward as [phone] [address] 2019-11-18 2019-11-18 Outpatient [facility] [id number] Common 15:13:00 15:13:00 t Ingo Money [facility] it Drive [facility] 2019-11-18 2019-11-18 Telephone HOANG Matos 1.2.337.416 [id number] [facility] 00:00:00 00:00:00 Tessa LARRY 350.1.13.10 it y of [facility] 4.2.7.2.686 Edward as [phone] [address] 2019-11-16 2019-11-16 Emergency Singer [facility] 1.2.239.728 [id number] Univers 19:58:07 22:05:00 Richardson [place] 350.1.13.10 i ty of [place] 4.2.7.2.686 [facility] [id number] [place] [address] Branch 2019-11-14 2019-11-14 Outpatient [facility] [id number] Common 14:20:00 14:20:00 t Ingo Money Sp[address] it Drive [facility] 2019-11-14 2019-11-14 Outpatient [facility] [id number] Common 11:44:00 11:44:00 t [facility] [employer] Sp[address] it [address] [facility] 2019-07-29 2019-07-29 Outpatient [facility] [id number] Common 11:15:00 11:15:[address] [facility] 2019-07-29 2019-07-29 Outpatient [facility] [id number] Common 08:43:00 08:43:[address] [facility] 2019-07-27 2019-07-28 Emergency Gail, [facility] 1.2.013.834 [id number] [facility] 22:56:42 01:19:00 Isaac [place] 350.1.13.10 i ty [facility] 4.2.7.2.686 [facility] [phone] [place] [address] Branch 2019-03-20 2019-03-20 Outpatient [facility] [id number] Common 15:45:00 15:45:[address] [facility] 2018-09-26 2018-09-26 Outpatient [facility] [id number] Common 11:15:00 11:15:[address] [facility] 2018-09-03 2018-09-03 Outpatient [facility] [id number] Common 15:39:00 15:39:00 t Specialty/U Sp mady Specialty rology - [facility]I /[facility]rology [facility] 2018-09-03 2018-09-03 Outpatient [facility] [id number] Common 12:09:00 12:09:00 t Specialty/U Sp mady Specialty rology - [facility]I /[facility] 2018-09-03 2018-09-03 Outpatient [facility] [id number] Common 09:49:00 09:49:00 t Specialty/U Sp mady Specialty rology - [facility]I /[facility] 2018 2018 Outpatient [facility] [id number] Common 16:01:00 16:01:00 t Specialty/U Sp mady Specialty rology - [facility] /[facility]rology [facility] 2018-08-21 2018-08-21 Outpatient [facility] [id number] Common 15:30:00 15:30:00 t Specialty/U Sp mady Specialty rology - [facility] /Urology Clinic [facility] 2018-08-21 2018-08-21 Out[facility] [id number] Common 11:30:00 11:30:[address] [facility] 2018-07-24 2018-07-24 Outpatient [facility] [id number] Common 08:46:00 08:46:[address] [facility] 2018-07-17 2018-07-17 Outpatient [facility] [id number] Common 13:15:00 13:15:[address] [facility] 2018-07-15 2018-07-15 Outpatient [facility] [id number] Common 11:15:00 11:15:[address] [facility] 2018-06-19 2018-06-19 Outpatient [facility] [id number] Common 08:15:00 08:15:[address] [facility] 2018-04-30 2018-04-30 Outpatient [facility] [id number] Common 13:30:00 13:30:[address] [facility] Results Test Description Test Time Test Comments Results Result Comments Source COMP. METABOLIC PANEL (21375) 2023-02-03 18:35:59 Test Item Value Reference Range Interpretation Comme nts NA (test code = 4113846818) 140 mmol/L 135-145 K (test code = 6468592984) 4.0 mmol/L 3.5-5.0 CL (test code = 5380381543) 108 mmol/L 98-108 CO2 TOTAL (test code = 24 mmol/L 23-31 1495044094) AGAP (test code = 6149372389) 8 2-16 BUN (test code = 6165654791) 14 mg/dL 7-23 GLUCOSE (test code = 9690983519) 98 mg/dL 70-110 CREATININE (test code = 0.70 mg/dL 0.50-1.04 7050989981) TOTAL BILI (test code = 0.2 mg/dL 0.1-1.3 4252288390) CALCIUM (test code = 4600172423) 9.1 mg/dL 8.6-10.6 T PROTEIN (test code = 7.0 g/dL 6.3-8.2 2479613110) ALBUMIN (test code = 0363840833) 4.3 g/dL 3.5-5.0 ALK PHOS (test code = 8372569082) 80 U/L 34-122 ALTv (test code = 1742-6) 14 U/L 5-35 AST(SGOT) (test code = 22 U/L 13-40 6488345684) eGFR (test code = 6653332413) 88.2 mL/min/1.73m2 LAVONNE (test code = LAVONNE) Association of Glomerular Filtration Rate (GFR) and Staging of Kidney Disease* + +--------- + ----+| GFR (mL/min/1.73 m2) ?| With Kidney Damage ?| ?Without Kidney Damage+ +--- + +| ?>90 ?| ?Stage one ?| ? Normal ?+ +-------- + -----+| ?60-89 ?| ?Stage two ?| ? Decreased GFR ? + +--------- + ----+| ?30-59 ?| ?Stage three ?| ? Stage three ? + +--------- + ----+| ?15-29 ?| ?Stage four ? | ? Stage four ?+ +-------- + -----+| ?<15 (or dialysis) ? ?| ?Stage five ? | ? Stage five ?+ +-------- + -----+ *Each stage assumes the associated GFR level [...] or urine or abnormalities in imaging tests). [facility]39 Test Item Value Reference Range Interpretation Comments LIPASE (test code = 1045480803) 87 U/L 0-220 Lab Interpretation (test code = Normal 46901-3) [facility] WITH [id number] 18:24:40 Test Item Value Reference Range Interpretation Comments WBC (test code = 9.24 See_Comment [Automated 6690-2) message] The sy stem which generated this result transmitted reference range : 4.30 - 11.10 10*3/?L. The reference range was not used to interpret this result as normal/abnormal . RBC (test code = 4.11 See_Comment [Automated 789-8) message] The sy stem which generated this result transmitted reference range : 3.93 - 5.25 10*6/?L. The reference range was not used to interpret this result as normal/abnormal . HGB (test code = 12.9 g/dL 11.6-15.0 718-7) HCT (test code = 37.4 % 35.7-45.2 4544-3) MCV (test code = 91.0 fL 80.6-95.5 787-2) MCH (test code = 31.4 pg 25.9-32.8 785-6) MCHC (test code = 34.5 g/dL 31.6-35.1 786-4) RDW-SD (test code = 42.5 fL 39.0-49.9 54900-4) RDW-CV (test code = 12.8 % 12.0-15.5 788-0) PLT (test code = 345 See_Comment [Automated 777-3) message] The sy stem which generated this result transmitted reference range : 166 - 358 10*3/ ?L. The reference r karla was not used to interpret this result as normal/abnormal . MPV (test code = 9.1 fL 9.5-12.9 L 72793-3) NRBC/100 WBC (test 0.0 See_Comment [Automat ed code = 3157701931) message] The system which generated this result transmitted reference range : 0.0 - 10.0 /100 WBCs. The refer ence range was not u sed to interpret th is result as normal/abnormal . NRBC x10^3 (test code See_Comment [Auto mated = 7565734618) message] The s ystem which generated this result transmitted reference range : 10*3/?L. The reference range was not used to interpret this result as normal/abnormal . GRAN MAT (NEUT) % 51.4 % (test code = 770-8) IMM GRAN % (test code 0.20 % = 7247206816) LYMPH % (test code = 40.8 % 736-9) MONO % (test code = 5.3 % 5905-5) EOS % (test code = 2.2 % 713-8) BASO % (test code = 0.1 % 706-2) GRAN MAT x10^3(ANC) 4.75 10*3/uL 1.88-7.09 (test code = 3813607111) IMM GRAN x10^3 (test 0.00-0.06 code = 7790229317) LYMPH x10^3 (test code 3.77 10*3/uL 1.32-3.29 H = 731-0) MONO x10^3 (test code 0.49 10*3/uL 0.33-0.92 = 742-7) EOS x10^3 (test code = 0.20 10*3/uL 0.03-0.39 711-2) BASO x10^3 (test code 0.01-0.07 = 704-7) Lab Interpretation Abnormal (test code = 71323-1) [facility] WITH [id number] 07:21:41 Test Item Value Reference Range Interpretation Comments WBC (test code = 9.64 See_Comment [Automated 1890-2) message] The sy stem which generated this result transmitted reference range : 4.30 - 11.10 10*3/?L. The reference range was not used to interpret this result as normal/abnormal . RBC (test code = 3.85 See_Comment L [Automated 357-8) message] The sy stem which generated this result transmitted reference range : 3.93 - 5.25 10*6/?L. The reference range was not used to interpret this result as normal/abnormal . HGB (test code = 12.2 g/dL 11.6-15.0 718-7) HCT (test code = 34.5 % 35.7-45.2 L 4544-3) MCV (test code = 89.6 fL 80.6-95.5 787-2) MCH (test code = 31.7 pg 25.9-32.8 785-6) MCHC (test code = 35.4 g/dL 31.6-35.1 H 786-4) RDW-SD (test code = 41.1 fL 39.0-49.9 09757-6) RDW-CV (test code = 12.6 % 12.0-15.5 788-0) PLT (test code = 315 See_Comment [Automated 777-3) message] The sy stem which generated this result transmitted reference range : 166 - 358 10*3/ ?L. The reference r karla was not used to interpret this result as normal/abnormal . MPV (test code = 8.7 fL 9.5-12.9 L 51564-9) NRBC/100 WBC (test 0.0 See_Comment [Automat ed code = 2801711369) message] The system which generated this result transmitted reference range : 0.0 - 10.0 /100 WBCs. The refer ence range was not u sed to interpret th is result as normal/abnormal . NRBC x10^3 (test code See_Comment [Auto mated = 6349036642) message] The s ystem which generated this result transmitted reference range : 10*3/?L. The reference range was not used to interpret this result as normal/abnormal . SEG % (test code = 45 % 33-76 27413-3) LYMPH % (test code = 48 % 14-54 64002-8) EOS % (test code = 7 % 0-3 H 76731-4) ANC (test code = 4.43 10*3/uL 1.88-7.09 753-4) Lab Interpretation Abnormal (test code = 02603-9) [facility]. METABOLIC PANEL (52956)2022-07-20 07:05:10 Test Item Value Reference Range Interpretation Comments NA (test code = 139 mmol/L 135-145 5499756054) K (test code = 4.0 mmol/L 3.5-5.0 Slight hemoly sis 5421805413) CL (test code = 105 mmol/L 98-108 5051561427) CO2 TOTAL (test 25 mmol/L 23-31 code = 4316465948) AGAP (test code = 9 2-16 7428825857) BUN (test code = 19 mg/dL 7-23 Slight hemo lysis 8013621240) GLUCOSE (test code 96 mg/dL 70-110 = 3782991757) CREATININE (test 0.59 mg/dL 0.50-1.04 code = 9839294137) TOTAL BILI (test 0.5 mg/dL 0.1-1.1 code = 4868017568) CALCIUM (test code 9.2 mg/dL 8.6-10.6 = 2095493545) T PROTEIN (test 6.9 g/dL 6.3-8.2 code = 3042577441) ALBUMIN (test code 4.4 g/dL 3.5-5.0 = 6255045910) ALK PHOS (test 53 U/L 34-122 Slight hemoly sis code = 0341954352) ALTv (test code = 15 U/L 5-35 1742-6) AST(SGOT) (test 23 U/L 13-40 Slight hemol ysis code = 2087250679) eGFR (test code = 107.9 mL/min/1.73m2 8156221831) LAVONNE (test code = Association of LAVONNE) [...] or urine or abnormalities in imaging tests). [facility] (ALB,T.PRO,BILI T,BU/BC,ALT,AST,ALK PHOS)2022-03-13 22:31:03 Test Item Value Reference Range Interpretation Comments TOTAL BILI (test code = 9890052663) 0.4 mg/dL 0.1-1.1 BILI UNCON (test code = 8336297360) 0.1 mg/dL 0.1-1.1 BILI CONJ (test code = 1460767077) 0.0 mg/dL 0-0.3 T PROTEIN (test code = 9495705516) 7.0 g/dL 6.3-8.2 ALBUMIN (test code = 8320590465) 4.5 g/dL 3.5-5 ALK PHOS (test code = 7571119220) 60 U/L 34-122 ALTv (test code = 1742-6) 16 U/L 5-35 AST(SGOT) (test code = 6883936137) 25 U/L 13-40 Lab Interpretation (test code = Normal 30451-2) [facility] (NA, K, CL, CO2, GLUCOSE, BUN, CREATININE, CA)2022-03-13 22:30:43 Test Item Value Reference Range Interpretation Comments NA (test code = 139 mmol/L 135-145 1358061644) K (test code = 4.0 mmol/L 3.5-5 0167371685) CL (test code = 104 mmol/L 98-108 1128075542) CO2 TOTAL (test code 26 mmol/L 23-31 = 5332627059) AGAP (test code = 2-16 0725744307) BUN (test code = 14 mg/dL 7-23 3947185479) GLUCOSE (test code = 93 mg/dL 70-110 2911873411) CREATININE (test code 0.88 mg/dL 0.5-1.04 = 9750222355) CALCIUM (test code = 9.0 mg/dL 8.6-10.6 0120751380) eGFR (test code = mL/min/1.73m2 5355052440) LAVONNE (test code = LAVONNE) Association of [...] or urine or abnormalities in imaging tests). [facility]:30[facility]43 Test Item Value Reference Range Interpretation Comments LIPASE (test code = 6179802187) 200 U/L 0-220 Lab Interpretation (test code = Normal 72511-9) [facility] WITH [id number] 21:59:40 Test Item Value Reference Range Interpretation Comments WBC (test code = See_Comment H [Automated 3490-2) message] The sy stem which generated this result transmitted reference range : 4.30 - 11.10 10*3/?L. The reference range was not used to interpret this result as normal/abnormal . RBC (test code = See_Comment L [Automated 789-8) message] The sy stem which generated this [...] RDW-SD (test code = 42.3 fL 39-49.9 70740-0) RDW-CV (test code = 12.8 % 12-15.5 788-0) PLT (test code = See_Comment [Automated 777-3) message] The sy stem which generated this result transmitted reference range : 166 - 358 10*3/ ?L. The reference r karla was not used to interpret this result as normal/abnormal . MPV (test code = 8.9 fL 9.5-12.9 L 19365-3) NRBC/100 WBC (test See_Comment [Automat ed code = 8246769527) message] The system which generated this result transmitted reference range : 0.0 - 10.0 /100 WBCs. The refer ence range was not u sed to interpret th is result as normal/abnormal . NRBC x10^3 (test code See_Comment [Auto mated = 3966326874) message] The s ystem which generated this result transmitted reference range : 10*3/?L. The reference range was not used to interpret this result as normal/abnormal . GRAN MAT (NEUT) % 60.3 % (test code = 770-8) IMM GRAN % (test code 0.30 % = 0948661431) LYMPH % (test code = 29.6 % 736-9) MONO % (test code = 6.6 % 5905-5) EOS % (test code = 3.0 % 713-8) BASO % (test code = 0.2 % 706-2) GRAN MAT x10^3(ANC) 7.16 10*3/uL 1.88-7.09 H (test code = 2773755328) IMM GRAN x10^3 (test 0.04 10*3/uL 0-0.06 code = 5084286766) LYMPH x10^3 (test code 3.51 10*3/uL 1.32-3.29 H = 731-0) MONO x10^3 (test code 0.78 10*3/uL 0.33-0.92 = 742-7) EOS x10^3 (test code = 0.35 10*3/uL 0.03-0.39 711-2) BASO x10^3 (test code 0.01-0.07 = 704-7) Lab Interpretation Abnormal (test code = 98537-3) [facility] Test Item Value Reference Range Interpretation Comments LIPASE (test code = 5070598111) 618 U/L 0-220 H Lab Interpretation (test code = Abnormal 68465-7) [facility] (79051)2022-01-22 01:55:34 Test Item Value Reference Range Interpretation Comments NA (test code = 140 mmol/L 135-145 6444214450) K (test code = 4.4 mmol/L 3.5-5 0860506021) CL (test code = 109 mmol/L 98-108 H 1150380309) CO2 TOTAL (test code = 25 mmol/L 23-31 6777879554) AGAP (test code = 2-16 2225280754) BUN (test code = 20 mg/dL 7-23 5442020618) GLUCOSE (test code = 98 mg/dL 70-110 9287758277) CREATININE (test code = 0.73 mg/dL 0.5-1.04 7708902901) TOTAL BILI (test code = 0.2 mg/dL 0.1-1.5 1898633249) CALCIUM (test code = 9.1 mg/dL 8.6-10.6 2265935021) T PROTEIN (test code = 6.9 g/dL 6.3-8.2 9835157372) ALBUMIN (test code = 4.6 g/dL 3.5-5 0333049580) ALK PHOS (test code = 71 U/L 34-122 8761194924) ALTv (test code = 16 U/L 5-35 1742-6) AST(SGOT) (test code = 23 U/L 13-40 3736481707) eGFR (test code = mL/min/1.73m2 1898635260) LAVONNE (test code = LAVONNE) Association of [...] tests). Lab Interpretation Abnormal (test code = 78037-6) [facility] WITH [id number] 01:48:36 Test Item Value Reference Range Interpretation Comments WBC (test code = See_Comment H [Automated 6690-2) message] The sy stem which generated this result transmitted reference range : 4.30 - 11.10 10*3/?L. The reference range was not used to interpret this result as normal/abnormal . RBC (test code = See_Comment L [Automated 789-8) message] The sy stem which generated this [...] RDW-SD (test code = 43.0 fL 39-49.9 42705-9) RDW-CV (test code = 13.1 % 12-15.5 788-0) PLT (test code = See_Comment [Automated 777-3) message] The sy stem which generated this result transmitted reference range : 166 - 358 10*3/ ?L. The reference r karla was not used to interpret this result as normal/abnormal . MPV (test code = 10.1 fL 9.5-12.9 66495-8) NRBC/100 WBC (test See_Comment [Automat ed code = 3722474226) message] The system which generated this result transmitted reference range : 0.0 - 10.0 /100 WBCs. The refer ence range was not u sed to interpret th is result as normal/abnormal . NRBC x10^3 (test code See_Comment [Auto mated = 8736971820) message] The s ystem which generated this result transmitted reference range : 10*3/?L. The reference range was not used to interpret this result as normal/abnormal . GRAN MAT (NEUT) % 52.3 % (test code = 770-8) IMM GRAN % (test code 0.30 % = 5468868552) LYMPH % (test code = 39.4 % 736-9) MONO % (test code = 5.5 % 5905-5) EOS % (test code = 2.3 % 713-8) BASO % (test code = 0.2 % 706-2) GRAN MAT x10^3(ANC) 6.05 10*3/uL 1.88-7.09 (test code = 1604940650) IMM GRAN x10^3 (test 0.03 10*3/uL 0-0.06 code = 7122342141) LYMPH x10^3 (test code 4.55 10*3/uL 1.32-3.29 H = 731-0) MONO x10^3 (test code 0.63 10*3/uL 0.33-0.92 = 742-7) EOS x10^3 (test code = 0.27 10*3/uL 0.03-0.39 711-2) BASO x10^3 (test code 0.01-0.07 = 704-7) Lab Interpretation Abnormal (test code = 01621-3) [facility] Notes Date/Time Note Provider Source 2023-02-03 14:47:56 0902-68-38H67:47:56Formatting of this note [facility] might be different from the original.Pt given printed and verbal discharge instructions regarding generalized abdominal tenderness without rebound tenderness, bilateral flank pain, colitis, nausea, encouraged hydration,2 Prescriptions sent. Discussed tramadol side affects and to avoid driving/operating machinery/or engaging in activities requiring alertness while taking.Pt verbalized understanding of instructions, pt awake alert oriented, resp reg unlabored, skin w/d, color appropriate for race, moves all ext well,pt encouraged to follow up with pcp and GI. Advised to seek medical attention for new/prolonged/worsening of symptoms,Symptoms remained. No adverse reaction to meds given in ER noted upon dischargePIV d'cd, dressing to site, catheter in tact.Awake, alert oriented, resp reg unlabored, skin w/d, pt leaving amb with steady gait, in no apparent distress, 35808-3Hrsdcnben department LqokSV5919-36-90X36:49:02Emergency department NoteTXT1.2.840.381322.1.13.104.2.7.2.74089 9|[id number] for patient nfmv54035-5CaxbATZUWPIMRT[address] [id number] CVGPYBFTXXKPJAQW9141-79-46B25:49:021.2.840 .215252.1.72.3.15|1.2.840.726334.1.13.104. 2.7.2.727879_[id number] 2023-02-03 12:48:49 3411-42-14R41:48:49Formatting of this note [facility] might be different from the original.Pt present to ED with c/o anahy flank pain radiating into lower abd, painful urination, and nausea since Sunday. Pt also reports a headache. 64970-1Nkvfeljxc department Triage dkluLZ8302-42-34A38:51:06[facility] Triage noteTXT1.2.840.371471.1.13.104.2.7.2.58197 9|[id number] for patient tmhz44229-7Shaheytmb department [id number] YLNPFHMQLTGFHAWA0223-83-45Q12:51:061.2.840 .782467.1.72.3.15|1.2.840.246850.1.13.104. 2.7.2.727879_[id number] 2023-02-03 12:46:00 2115-21-80I60:46:00Formatting of this note [facility] is different from the original.[facility] Emergency Department NotePatient Name: Stephania Patten of : 1970 52 year old femaleTreatment Room: MS3/UD2Dbxbusu Record Number: [id number] Care Physician: Juan SeePatient Escorted by: Family [5]Mode of Arrival: Personal means [1]EMS Treatment Prior to ED Arrival:FISH PEDDLER treatment: None Exam Limited by: none Travel and Exposure Screening:SymptomsDoes patient have any of these symptoms?: (not recorded)Exposure ScreeningHas patient had contact with someone with a communicable disease in the last month?: (not recorded)Diseases exposed to:: (not recorded)Is Patient ?: (not recorded)Exposure Date: (not recorded)Chief Complaint:Chief Complaint Patient presents with Flank Pain Abdominal Pain Nausea History of Present Illness: complains of bilateral lower abdominal pain radiating to both flanks. She also reports painful urination, and nausea since Monday 01/29. She denies vomiting and diarrhea. Today she noticed a little bit of blood in the urine, but does not think it is vaginal bleeding and denies vaginal discharge. Patient has had a hysterectomy. Pt also reports fever and chills with a Tmax of 102-103 and a headache. She has been taking Tylenol 3-4 times per day "to get through work", with her last dose being at 5 AM today with some relief of the pain and fever. She reports similar symptoms in the past which she was told was due to a UTI. She denies any history of renal stones. She denies chest pain, shortness of breath, URI symptoms.Review of Systems: Review of Systems Constitutional: Positive for chills and fever. SEE HPI for other pertinent positives & negatives. HENT: Negative for congestion, sinus pressure and sore throat. Respiratory: Negative for cough, chest tightness and shortness of breath. Cardiovascular: Negative for chest pain, palpitations and leg swelling. Gastrointestinal: Positive for abdominal pain and nausea. Negative for blood in stool, diarrhea and vomiting. Genitourinary: Positive for dysuria, hematuria and flank pain. Negative for vaginal discharge and vaginal pain. Musculoskeletal: Negative for arthralgias, back pain and myalgias. Skin: Negative for rash and wound. Neurological: Positive for headaches. Negative for dizziness and weakness. Past Medical History/Immunizations:Past Medical History: Diagnosis Date Anemia unk Anxiety Arthritis bilateral knee pain, OTC Alieve Arthritis Bacterial vaginosis 05/09/2013 Breast disorder left sided lump with pain-started 12/2012 Depression 2006 used to take medication, does not at this time Female infertility surgical, BTL Irregular periods/menstrual cycles 05/09/2013 Menstrual disorder severe cramping STD (sexually transmitted disease) 01/2013 gonorrhea Tobacco use disorder 05/09/2013 UTI (urinary tract infection) Tetanus received in last 5 years: Unknown Problem List:Patient Active Problem List Diagnosis Well woman exam Smoker S/P hysterectomy Dysuria Positive depression screening Enteritis History of bilateral tubal ligation BMI 25.0-25.9,adult Allergies:No Known AllergiesPast Social History:Tobacco Use Every Day; 0.25 packs/day for 13.00 years; Types: Cigarettes Smokeless Tobacco: Never used smokeless tobacco. Comments: 3-4 cigarretes per day Alcohol Use Yes. Comments: on occasion Drug Use No. Sexual Activity Sexually active; Partners: Female; Control/Protection: Surgical. Comments: last sexual intercourse 10/30/2021 Past Surgical History:Past Surgical History: Procedure Laterality Date CYSTOSCOPY 07/06/2015 CYSTOSCOPY 07/07/2015 SALPINGECTOMY Bilateral 07/06/2015 Surgeon: Hoang Leon III, MD; [facility] TOTAL ABDOMINAL HYSTERECTOMY N/A 07/06/2015 Surgeon: Hoang Leon III, MD; Location: [facility] TUBAL LIGATION tubal in 1994 Physical Exam: ED Triage Vitals [02/03/23 1251] Weight 54.4 kg (120 lb) Actual or estimated Height 1.524 m (5') BP (!) 116/92 Pulse 84 Resp 16 Temp 37.3 ?C (99.1 ?F) Temp src SpO2 95 % Measured on Room air Physical ExamVitals and nursing note reviewed. Exam conducted with a pad extractor tender present (Cherelle Morales RN). Constitutional: General: She is awake. She is in acute distress (moderate painful/GI). Appearance: Normal appearance. She is well-developed. She is not toxic-appearing. HENT: Head: Normocephalic and atraumatic. Eyes: General: No scleral icterus. Extraocular Movements: Extraocular movements intact. Cardiovascular: Rate and Rhythm: Normal rate and regular rhythm. Pulmonary: Effort: No accessory muscle usage or respiratory distress. Abdominal: General: There is no distension. Palpations: Abdomen is soft. Abdomen is not rigid. Tenderness: There is generalized abdominal tenderness (worse in lower abdomen). There is right CVA tenderness, left CVA tenderness (L>R) and rebound. There is no guarding. Negative signs include Dinh's sign and McBurney's sign. Genitourinary: Exam position: Knee-chest position. Pubic Area: No rash or pubic lice. Elmer stage (genital): 5. Labia: Right: No rash, tenderness, lesion or injury. Left: No rash, tenderness or lesion. Urethra: Urethral swelling (minimal) present. No prolapse, urethral pain or urethral lesion. Vagina: No signs of injury. Vaginal discharge (small amount of white discharge) present. No erythema, tenderness, bleeding or lesions. Comments: Vaginal cuff appears intact and without injury. There is no visible or palpable cervix.Musculoskeletal: General: No tenderness or deformity. Normal range of motion. Right lower leg: No edema. Left lower leg: No edema. Skin: General: Skin is warm and dry. Findings: No erythema or rash. Neurological: General: No focal deficit present. Mental Status: She is alert and oriented to person, place, and time. Psychiatric: Attention and Perception: She is attentive. Mood and Affect: Mood and affect normal. Speech: Speech normal. Behavior: Behavior is cooperative. Cognition and Memory: Cognition and memory normal. Radiology: (Reviewed by me)Hospital Encounter on 02/03/23 CT ABDOMEN PELVIS W CONTRAST Narrative EXAM: CT ABDOMEN/PELVIS WITH CONTRASTHISTORY: Abdominal pain, fever Abdominal pain, acute, nonlocalized bilateral flank pain - stone vs pyelo Patient complaining of bilateralflank pain radiating to the lower abdomen. Patient has painful urination.COMPARISON: CT dated 03/13/2022TECHNIQUE AND FINDINGS: Contiguous axial imaging from the level of the lungbases through the proximal thighs was performed after the administration ofintravenous contrast. Coronal and sagittal reconstructions were obtained. FINDINGS:LOWER THORAX: Mild subsegmental dependent basilar atelectasis. Nocardiomegaly.LIVER: Subcentimeter hypodensity in the right hepatic lobe is too small tocharacterize but is likely a cyst. Normal contour.GALLBLADDER AND BILIARY TREE: No biliary ductal dilation. No gallbladderwall thickening.SPLEEN: No splenomegaly.PANCREAS: No ductal dilation or masses.ADRENAL GLANDS: No adrenal nodules.KIDNEYS: Bilateral symmetrical enhancement. No hydronephrosis, stones, ormasses.GI TRACT: Circumferential wall thickening of the distal sigmoid colon within the approximately same location as previous CT from 2021.No pathological bowel wall dilatation. The appendix is normal.PELVIS/BLADDER: Circumferential bladder wall haziness.PERITONEUM AND RETROPERITONEUM: No free air or fluid.LYMPH NODES: No lymphadenopathy.VESSELS: Unremarkable.BONES AND SOFT TISSUES: No suspicious lytic or sclerotic bony lesions. Impression 1. Circumferential wall thickening of the distal sigmoid colon inapproximately the same location as 2021, possibly representing colitis.Given persistent CT findings, further evaluation with colonoscopy on anonemergent basis could be considered if not already performed.2. Bladder wall haziness may be due to degree of bladder distentionhowever cystitis can be considered.Preliminary Report Dictated by Resident: Jacob Treviño Lab Results (24h): (Reviewed by me)Recent Results (from the past 24 hour(s)) URINALYSIS Collection Time: 02/03/23 1:02 PM Result Value Ref Range APPEARANCE Clear Clear COLOR Yellow Yellow PH 6.0 4.8 - 8.0 SP GRAVITY 1.014 1.003 - 1.030 GLU U QUAL Normal Normal BLOOD Negative Negative KETONES Negative Negative PROTEIN Negative Negative UROBILIN Normal Normal BILIRUBIN Negative Negative NITRITE Negative Negative LEUK DEVAN Negative Negative RBC/HPF 2 0 - 3 HPF WBC/HPF 1 0 - 5 HPF BACTERIA Few (A) Negative MUCOUS Slight (A) Negative LPF SQ EPITH 3 HPF LIPASE Collection Time: 02/03/23 1:02 PM Result Value Ref Range LIPASE 87 0 - 220 U/L CBC WITH DIFF Collection Time: 02/03/23 1:02 PM Result Value Ref Range WBC 9.24 4.30 - 11.10 10*3/?L RBC 4.11 3.93 - 5.25 10*6/?L HGB 12.9 11.6 - 15.0 g/dL HCT 37.4 35.7 - 45.2 % MCV 91.0 80.6 - 95.5 fL MCH 31.4 25.9 - 32.8 pg MCHC 34.5 31.6 - 35.1 g/dL RDW-SD 42.5 39.0 - 49.9 fL RDW-CV 12.8 12.0 - 15.5 % PLT 345 166 - 358 10*3/?L MPV 9.1 (L) 9.5 - 12.9 fL NRBC/100 WBC 0.0 0.0 - 10.0 /100 WBCs NRBC x10^3 <0.01 10*3/?L GRAN MAT (NEUT) % 51.4 % IMM GRAN % 0.20 % LYMPH % 40.8 % MONO % 5.3 % EOS % 2.2 % BASO % 0.1 % GRAN MAT x10^3(ANC) 4.75 1.88 - 7.09 10*3/uL IMM GRAN x10^3 <0.03 0.00 - 0.06 10*3/uL LYMPH x10^3 3.77 (H) 1.32 - 3.29 10*3/uL MONO x10^3 0.49 0.33 - 0.92 10*3/uL EOS x10^3 0.20 0.03 - 0.39 10*3/uL BASO x10^3 <0.03 0.01 - 0.07 10*3/uL COMP. METABOLIC PANEL ([id number]) Collection Time: 02/03/23 1:02 PM Result Value Ref Range NA 140 135 - 145 mmol/L K 4.0 3.5 - 5.0 mmol/L CL 108 98 - 108 mmol/L CO2 TOTAL 24 23 - 31 mmol/L AGAP 8 2 - 16 BUN 14 7 - 23 mg/dL GLUCOSE 98 70 - 110 mg/dL CREATININE 0.70 0.50 - 1.04 mg/dL TOTAL BILI 0.2 0.1 - 1.1 mg/dL CALCIUM 9.1 8.6 - 10.6 mg/dL T PROTEIN 7.0 6.3 - 8.2 g/dL ALBUMIN 4.3 3.5 - 5.0 g/dL ALK PHOS 80 34 - 122 U/L ALTv 14 5 - 35 U/L AST(SGOT) 22 13 - 40 U/L eGFR 88.2 mL/min/1.73m2 Orders and Treatments:Orders Placed This Encounter Procedures CT ABDOMEN PELVIS W CONTRAST URINALYSIS LIPASE CBC WITH DIFF COMP. METABOLIC PANEL (78673) Orders Placed This Encounter Medications ketorolac (TORADOL) injection 30 mg ondansetron (ZOFRAN (PF)) injection 4 mg NaCl 0.9% (NS) bolus infusion 1,000 mL iopamidol (ISOVUE 370-500 mL) injection 70 mL HYDROcodone-acetaminophen (NORCO 5) 5-325 mg tablet 1 tablet traMADoL 50 mg tablet ondansetron 4 mg disintegrating tablet ED COURSEED Course as of 02/03/23 1439 Sat Feb 03, 2023 1427 Vaginal exam done at this time. See physical exam above.All results discussed with patient, who voices understanding and agreement with the plan of care. Will discharge home on OTC pain meds with tramadol for breakthrough and also Zofran for nausea. [place] diet. Encourage p.o. fluids. Rest. PCP follow-up with possible GI referral for colonoscopy. Return precautions given. [LS] 1409 [place] given. Will check vaginal exam. [LS] 1408 No evidence of cystitis on the urinalysis.Patient had no relief from the Toradol. RN to check and see if the patient has a ride home. [LS] 1408 CT ABDOMEN PELVIS W CONTRASTIMPRESSION 1. Circumferential wall thickening of the distal sigmoid colon inapproximately the same location as 2021, possibly representing colitis.Given persistent CT findings, further evaluation with colonoscopy on anonemergent basis could be considered if not already performed. 2. Bladder wall haziness may be due to degree of bladder distentionhowever cystitis can be considered. Preliminary Report Dictated by Resident: Jacob Treviño [LS] 1340 URINALYSIS(!)Labs unremarkable [LS] 1340 LIPASE [LS] 1340 COMP. METABOLIC PANEL ([id number]) [LS] 1340 CBC WITH DIFF(!) [LS] ED Course User Index[LS] Maria Victoria Prado MD Diagnosis/Impression as of 02/03/23 1439 Generalized abdominal tenderness without rebound tenderness Bilateral flank pain Colitis Nausea Diagnosis/Impression: ICD-10-CM 1. Generalized abdominal tenderness without rebound tenderness R10.817 2. Flank pain R10.9 3. Bilateral flank pain R10.9 4. Colitis K52.9 5. Nausea R11.0 Disposition/Condition:ED Disposition ED Disposition Disch - Home Condition Stable Comment -- Discharge Medications:Patient's Medications START taking these medications ONDANSETRON 4 MG DISINTEGRATING TABLET Take 1 tablet by mouth every 8 (eight) hours as needed for Nausea and Vomiting (N/V). TRAMADOL 50 MG TABLET Take 1 tablet by mouth every 6 (six) hours as needed for Pain (scale 7-10) for up to 7 days. Indications: acute pain CONTINUE taking these medications which have NOT CHANGED ALPRAZOLAM 0.25 MG TABLET Take 1 tablet by mouth 2 (two) times daily as needed for Anxiety. IBUPROFEN 600 MG TABLET Take 1 tablet by mouth every 6 (six) hours as needed for Pain (scale 4-6) or Pain (scale 1-3). IBUPROFEN 600 MG TABLET Take 1 tablet by mouth every 6 (six) hours as needed for Pain (scale 4-6). SERTRALINE (ZOLOFT) 50 MG TABLET Take 1 tablet by mouth in the morning. START taking Modified Medications as Prescribed No medications on file STOP taking these medications ONDANSETRON 4 MG DISINTEGRATING TABLET Take 1 tablet by mouth every 8 (eight) hours as needed for Nausea and Vomiting (N/V). Follow-up:Contact information for follow-up Juan See Specialty: FM-FAMILY MEDICINE Relationship: PCP - General [address] [place] [id number] Instructions: As needed [facility] Gastroenterology [address] [place] [address], [address] [place] [id number] Instructions: for a colonoscopy to evaluate the sigmoid colon abnormality seen on CT today and in 2021 MDM: Medical Decision MakingDDx of abdominal pain includes obstruction, gastritis, ulcer, appendicitis, cholecystitis, colitis, diverticulitis/osis, pancreatitis, aortic disease, UTI, other infectious etiology Labs, IV fluid, Toradol, Zofran, CT A/P ordered.See ED courseProblems Addressed:Bilateral flank pain: undiagnosed new problem with uncertain prognosisColitis: chronic illness or injury Details: Uncertain prognosisGeneralized abdominal tenderness without rebound tenderness: undiagnosed new problem with uncertain prognosisNausea: self-limited or minor problemAmount and/or Complexity of Data ReviewedExternal Data Reviewed: labs and notes. Details: Most recent urine culture reviewed:Status: Final result Visible to patient: Yes (not seen) Dx: Pyelonephritis Specimen Information: URINE, CLEAN CATCH0 Result NotesUrine Culture >100,000 CFU/mL Escherichia coli Resulting Agency: Susceptibility Escherichia coli SUSCEPTIBILITY TESTING Amoxicillin/K Clavulanate <=8/4 ?g/mL... Susceptible Ampicillin >16 ?g/mL HUGO Resistant Ampicillin/Sulbactam 16/8 ?g/mL HUGO Intermediate Cefazolin <=2 ?g/mL HUGO Susceptible Cefepime <=2 ?g/mL HUGO Susceptible Ceftriaxone <=1 ?g/mL HUGO Susceptible Cefuroxime <=4 ?g/mL HUGO Susceptible Ciprofloxacin >2 ?g/mL HUGO Resistant Gentamicin <=2 ?g/mL HUGO Susceptible Levofloxacin >4 ?g/mL HUGO Resistant Nitrofurantoin <=32 ?g/mL HUGO Susceptible Piperacillin/Tazobactam <=8 ?g/mL HUGO Susceptible Trimethoprim/Sulfamethoxazole >2/38 ?g/mL... Resistant Susceptibility CommentsEscherichia coliNitrofurantoin is not recommended for use in treating pyelonephritis or systemic disease. Specimen Collected: 10/17/22 21:32 Last Resulted: 10/20/22 07:43Labs: ordered. Decision-making details documented in ED Course.Radiology: ordered. Decision-making details documented in ED Course.RiskOTC drugs.Prescription drug management.History, physical exam findings, results of visit, differential diagnosis, medication regimens and plan of future care have been considered. Additional MDM may be found in the ED course. Differential diagnosis considered and final disposition made based on information gathered during evaluation and may not be completely ruled out. Vital signs were rechecked before final disposition and determined to be stable. Portions of this note were completed using [employer] Speaking Software.Occasional phonetic or grammatical errors may escape proofreading. Electronically signed by: Maria Victoria Prado M.D., FACEHonorHealth John C. Lincoln Medical Centert Clinical Professor of Emergency Medicine 02/03/2023 12:56 PM Maria Victoria Prado MD02/03/23 1440 [id number] Emergency department [id number] Emergency department [id number] for patient [id number] department Note[address] S[id number] [id number] .[id number]
[2023-04-09 18:47] LABS: Absolute Lymphocytes (CBC) 4.5 K/uL (0.7-4.9); Lymphocytes % 39.4 % (15.3-44.8); MCV 91.1 fL (80-100); MPV 6.6 fL (7.6-11.3); Platelets 348 thou/uL (152-406); RBC Red Blood Cell Count 3.73 M/uL (3.86-4.86)
[2023-04-09] MEDS ORDERED: KETOROLAC 30 MG/ML INJ ONE (18:53)
[2023-04-09] MEDS ORDERED: ONDANSETRON 4 MG/2 ML VIAL ONE (18:54)
[2023-04-09] MEDS ORDERED: NA CHLORIDE 0.9% 1,000 ML ONE ×2 (18:54→21:20)
[2023-04-09 19:23] LABS: Albumin 3.5 g/dL (3.4-5.0); Bilirubin Total 0.2 mg/dL (0.2-1.0); Potassium 3.8 mEq/L (3.5-5.1)
[2023-04-09 21:33] LABS: Specific Gravity 1.007 (1.005-1.030); Urine Bacteria <20 /HPF (<20); Urine Bilirubin NEGATIVE (Negative); Urine Blood Negative (Negative); Urine Clarity Turbid (Clear); Urine Color Colorless (Yellow); Urine Glucose NEGATIVE (Negative); Urine Protein NEGATIVE (Negative); Urine RBC <5 /HPF (None Seen); Urine Urobilinogen Normal (Normal)
[2023-04-09] MEDS ORDERED: NA CHLORIDE 0.9% 100 ML ONE (21:47)
[2023-04-09] MEDS ORDERED: CEFTRIAXONE 1000 MG/VIAL ONE (21:47)
[2023-04-09] MEDS ORDERED: HYDROCODONE/APAP 5/325 MG TAB ONE (23:08)
--- NOTE | 2023-04-09 23:12 | EDPHYS ---
Physician Documentation [facility] Name: Stephania Lobo Age: 52 yrs Sex: Female : 1970 Arrival Date: 04/09/2023 Time: 17:47 Bed 15 Private MD: ED Physician Ethan Cheek HPI: 04/09 18:00 This 52 yrs old Female presents to ER via Unassigned with complaints of Back jh7 Pain. 18:00 The symptoms are located in the low back. Onset: The symptoms/episode began/occurred 10 jh7 day(s) ago, and became worse 3 day(s) ago. 52-year-old female presents to the ER with flank pain, urinary symptoms, fever, and nausea vomiting worsening over the past 3 days. She reports that she actually has had dysuria for over a week and has been taking Azo's at home. She was sent from Dr. See's office. Denies any other symptoms at this time.. 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 - Social history:: Smoking status: Patient reports the use of cigarette tobacco products. ROS: 18:00 Eyes: Negative for injury, pain, redness, and discharge, ENT: Negative for injury, jh7 pain, and discharge, Neck: Negative for injury, pain, and swelling, Cardiovascular: Negative for chest pain, palpitations, and edema, Respiratory: Negative for shortness of breath, cough, wheezing, and pleuritic chest pain, Back: Negative for injury and pain, MS/Extremity: Negative for injury and deformity, Skin: Negative for injury, rash, and discoloration, Neuro: Negative for headache, weakness, numbness, tingling, and seizure, 18:00 Constitutional: Positive for body aches, chills, fever, 18:00 Abdomen/GI: Positive for abdominal pain, nausea and vomiting, Negative for diarrhea, constipation, 18:00 : Positive for urinary symptoms, pelvic pain, flank pain, burning with urination, 18:00 All other systems are negative, Exam: 18:00 Head/Face: Normocephalic, atraumatic. Neck: Trachea midline, no thyromegaly or masses jh7 palpated, and no cervical lymphadenopathy. Supple, full range of motion without nuchal rigidity, or vertebral point tenderness. No Meningismus. Cardiovascular: Regular rate and rhythm with a normal S1 and S2. No gallops, murmurs, or rubs. Normal PMI, no JVD. No pulse deficits. Respiratory: Lungs have equal breath sounds bilaterally, clear to auscultation and percussion. No rales, rhonchi or wheezes noted. No increased work of breathing, no retractions or nasal flaring. Skin: Warm, dry with normal turgor. Normal color with no rashes, no lesions, and no evidence of cellulitis. MS/ Extremity: Pulses equal, no cyanosis. Neurovascular intact. Full, normal range of motion. Neuro: Awake and alert, GCS 15, oriented to person, place, time, and situation. Motor strength 5/5 in all extremities. Sensory grossly intact. Normal gait. 18:00 Constitutional: The patient appears alert, awake, obviously ill, in obvious pain, 18:00 Abdomen/GI: Inspection: abdomen appears normal, Bowel sounds: normal, Palpation: soft, moderate abdominal tenderness, in the suprapubic area, 18:00 : CVA tenderness, noted bilaterally, Vital Signs: 18:34 BP 117 / 75; Pulse 61; Resp 16; Temp 98.9; Pulse Ox 98% on R/A; Weight 54.43 kg; Height iw 5 ft. 0 in. ; Pain 10/10; 19:30 BP 85 / 58; Pulse 66; Resp 18 S; Pulse Ox 98% on R/A; jw7 20:30 BP 125 / 80; Pulse 72; Resp 17 S; Pulse Ox 99% on R/A; jw7 21:25 BP 106 / 66; Pulse 62; Resp 16 S; Pulse Ox 99% on R/A; jw7 22:23 BP 108 / 72; Pulse 73; Resp 20 S; Pulse Ox 96% on R/A; jw7 23:00 BP 109 / 72; Pulse 65; Resp 19 S; Pulse Ox 99% on R/A; jw7 18:34 Body Mass Index 23.44 (54.43 kg, 152.4 cm) iw 18:34 Pain Scale: Adult iw MDM: 18:00 Patient medically screened. [facility] 23:13 Differential diagnosis: Cholelithiasis Hydronephrosis Pyelonephritis Ureterolithiasis. [facility] Data reviewed: vital signs, nurses notes. I considered the following discharge prescriptions or medication management in the emergency department Medications were administered in the Emergency Department. See MAR. Counseling: I had a detailed discussion with the patient and/or guardian regarding the historical points, exam findings, and any diagnostic results supporting the discharge/admit diagnosis, lab results, radiology results, the need for outpatient follow up, for definitive care, to return to the emergency department if symptoms worsen or persist or if there are any questions or concerns that arise at home. Response to treatment: the patient's symptoms have mildly improved after treatment. Special discussion: Based on the patient's Hx, exam, and Dx evaluation, there is no indication for emergent surgery or inpatient Tx. It is understood by the patient/guardian that if the Sx's persist or worsen they need to return immediately for re-evaluation. Based on the history and exam findings, there is no indication for further emergent testing or inpatient evaluation. I discussed with the patient/guardian the need to see the primary care provider for further evaluation of the symptoms. 04/09 18:01 Order name: CBC with Diff; Complete Time: 18:59 [facility] 04/09 18:01 Order name: CMP; Complete Time: 20:57 [facility] 04/09 18:01 Order name: Lipase; Complete Time: 20:57 [facility] 04/09 18:01 Order name: Urinalysis w/ reflexes; Complete Time: 21:35 [facility] 04/09 21:39 Order name: Urine Culture [facility] 04/09 21:36 Order name: CT Stone Protocol snw 04/09 18:01 Order name: IV Saline Lock; Complete Time: 18:40 [facility] 04/09 18:01 Order name: Labs collected and sent; Complete Time: 18:40 [facility] Administered Medications: 18:48 Drug: NS 0.9% IV 1000 ml IV at 1 bolus Per protocol; 1000 mL bolus Route: IV; Rate: 1 db bolus; Site: right antecubital; 21:40 Follow up: Response: No adverse reaction; IV Status: Completed infusion; IV Intake: jw7 1000ml 18:48 Drug: TORadol - Ketorolac IVP 30 mg IVP once Route: IVP; Site: right antecubital; db 21:40 Follow up: Response: No adverse reaction; Marked relief of symptoms jw7 18:48 Drug: Ondansetron IVP 4 mg IVP once; over 2 minutes Route: IVP; Site: right antecubital;db 21:40 Follow up: Response: No adverse reaction; Marked relief of symptoms jw7 21:23 Drug: NS 0.9% IV 1000 ml IV at 1 bolus Per protocol; 1000 mL bolus Route: IV; Rate: 1 jw7 bolus; Site: right antecubital; 22:48 Follow up: Response: No adverse reaction; IV Status: Completed infusion; IV Intake: jw7 1000ml 21:40 Drug: Rocephin IV 1 grams IV at calculated rate once; Given slow IV push per pharmacy jw7 instructions Route: IV; Rate: calculated rate; Site: right antecubital; 22:42 Follow up: Response: No adverse reaction; IV Status: Completed infusion; IV Intake: jw7 100ml 22:56 Drug: HYDROcodone-acetaminophen PO 5 mg-325 mg 1 tabs PO once Route: PO; jj7 23:16 Follow up: Response: No adverse reaction jw7 Disposition: 20:55 Co-signature as Attending Physician, Ethan Cheek MD I reviewed the patient's care rt provided by the Advanced Practice Provider and agree with the diagnosis and treatment plan. Disposition Summary: 04/09/23 23:12 Discharge Ordered Notes: Location: Home snw Condition: Stable snw Diagnosis - Dysuria snw - Flank pain snw Followup: snw - With: Emergency Department - When: As needed - Reason: Worsening of condition Followup: snw - With: Private Physician - When: 2 - 3 days - Reason: Recheck today's complaints, Continuance of care, Re-evaluation by your physician Discharge Instructions: - Discharge Summary Sheet snw - Dysuria snw - Flank Pain, Adult snw Forms: - Medication Reconciliation Form snw - Thank You Letter snw - Antibiotic Education snw - Prescription Opioid Use snw - Patient Portal Instructions snw - Leadership Thank You Letter snw Prescriptions: - Augmentin 875-125 mg Oral Tablet - take 1 tablet ORAL route every 12 hours for 10 days; 20 tablet; Refills: 0, snw Product Selection Permitted - Tramadol 50 mg Oral Tablet - take 1 tablet ORAL route every 8 hours as needed; 12 tablet; Refills: 0, snw Product Selection Permitted Signatures: Dispatcher [employer] Yen Brewer FNP-C [facility] [employer] Shayla Feliciano, RN RN iw Ro Nix RN RN jw7 Adelina Lopez FNP FNP jh7 Ric Araujo RN RN jj7 Lynette Tapia RN RN db Ethan Cheek MD MD rt
--- NOTE | 2023-04-09 23:12 | ER ---
Nurse's Notes [facility] Name: Stephania Lobo Age: 52 yrs Sex: Female : 1970 Arrival Date: 04/09/2023 Time: 17:47 Bed 15 Private MD: Diagnosis: Dysuria;Flank pain Presentation: 04/09 18:34 Chief complaint: Patient states: uti symptoms, suprapubic pain X 1 week, back pain X 2 iw days , n/v. Coronavirus screen: At this time, the client does not indicate any symptoms associated with coronavirus-19. Ebola Screen: Patient negative for fever greater than or equal to 101.5 degrees Fahrenheit, and additional compatible Ebola Virus Disease symptoms Patient denies exposure to infectious person. Patient denies travel to an Ebola-affected area in the 21 days before illness onset. No symptoms or risks identified at this time. Initial Sepsis Screen: Does the patient meet any 2 criteria? No. Patient's initial sepsis screen is negative. Does the patient have a suspected source of infection?. Risk Assessment: Do you want to hurt yourself or someone else? Patient reports no desire to harm self or others. Onset of symptoms was April 02, 2023. 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 - Social history:: Smoking status: Patient reports the use of cigarette tobacco products. Screenin:30 [facility] ED Fall Risk Assessment (Adult) History of falling in the last 3 months, jw7 including since admission No falls in past 3 months (0 pts) Score/Fall Risk Level 0 - 2 = Low Risk Oriented to surroundings, Maintained a safe environment. Abuse screen: Denies threats or abuse. Denies injuries from another. Nutritional screening: No deficits noted. Tuberculosis screening: No symptoms or risk factors identified. Assessment: 19:30 General: Appears in no apparent distress. uncomfortable, Behavior is calm, cooperative. jw7 Pain: Complains of pain in lumbar area, left low back, right low back and suprapubic area pain started in the suprapubic area and radiated to back, stated "now I can't tell the difference" Pain currently is 7 out of 10 on a pain scale. Quality of pain is described as crampy, pressure, sharp, Is continuous. Neuro: Dennis Agitation-Sedation Scale (RASS): 0 - Alert and Calm Level of Consciousness is awake, alert, obeys commands, Oriented to person, place, time, situation. Cardiovascular: No deficits noted. Respiratory: No deficits noted. GI: No deficits noted. No signs and/or symptoms were reported involving the gastrointestinal system. : Reports burning with urination, cramping, pain urgency, urinary frequency. EENT: No deficits noted. No signs and/or symptoms were reported regarding the EENT system. Derm: No deficits noted. No signs and/or symptoms reported regarding the dermatologic system. Musculoskeletal: No deficits noted. No signs and/or symptoms reported regarding the musculoskeletal system. 19:45 Cardiovascular: Rhythm is sinus rhythm. jw7 20:30 Reassessment: Patient appears in no apparent distress at this time. No changes from jw7 previously documented assessment. Patient and/or family updated on plan of care and expected duration. Pain level reassessed. Patient is alert, oriented x 3, equal unlabored respirations, skin warm/dry/pink. 21:23 Reassessment: Patient appears in no apparent distress at this time. No changes from jw7 previously documented assessment. Patient and/or family updated on plan of care and expected duration. Pain level reassessed. Patient is alert, oriented x 3, equal unlabored respirations, skin warm/dry/pink. 22:23 Reassessment: Patient appears in no apparent distress at this time. No changes from jw7 previously documented assessment. Patient and/or family updated on plan of care and expected duration. Pain level reassessed. Patient is alert, oriented x 3, equal unlabored respirations, skin warm/dry/pink. 23:15 Reassessment: Patient appears in no apparent distress at this time. Patient and/or jw7 family updated on plan of care and expected duration. Pain level reassessed. Patient is alert, oriented x 3, equal unlabored respirations, skin warm/dry/pink. Patient states symptoms have improved. Vital Signs: 18:34 BP 117 / 75; Pulse 61; Resp 16; Temp 98.9; Pulse Ox 98% on R/A; Weight 54.43 kg; Height iw 5 ft. 0 in. ; Pain 10/10; 19:30 BP 85 / 58; Pulse 66; Resp 18 S; Pulse Ox 98% on R/A; jw7 20:30 BP 125 / 80; Pulse 72; Resp 17 S; Pulse Ox 99% on R/A; jw7 21:25 BP 106 / 66; Pulse 62; Resp 16 S; Pulse Ox 99% on R/A; jw7 22:23 BP 108 / 72; Pulse 73; Resp 20 S; Pulse Ox 96% on R/A; jw7 23:00 BP 109 / 72; Pulse 65; Resp 19 S; Pulse Ox 99% on R/A; jw7 18:34 Body Mass Index 23.44 (54.43 kg, 152.4 cm) iw 18:34 Pain Scale: Adult iw ED Course: 17:54 Patient arrived in ED. mg5 18:00 Adelina Lopez FNP is PHCP. 7 18:00 Ethan Cheek MD is Attending Physician. 7 18:36 Triage completed. iw 18:37 Arm band placed on. iw 18:41 Inserted saline lock: 22 gauge in right antecubital area, using aseptic technique. ds4 Blood collected. 19:30 Patient has correct armband on for positive identification. Bed in low position. Call [facility] light in reach. Side rails up X 1. 19:52 Ro Nix RN is Primary Nurse. jw7 20:58 PHCP role handed off by Adelina Lopez FNP snw 20:58 Yne Winchester FNP-C is PHCP. sn 22:24 No provider procedures requiring assistance completed. jw7 22:32 CT Stone Protocol In Process Unspecified. EDMS 23:34 Provided Education on: discharge instructions and medication usage. jw7 23:34 IV discontinued, intact, bleeding controlled, No redness/swelling at site. Pressure jw7 dressing applied. Administered Medications: 18:48 Drug: NS 0.9% IV 1000 ml IV at 1 bolus Per protocol; 1000 mL bolus Route: IV; Rate: 1 db bolus; Site: right antecubital; 21:40 Follow up: Response: No adverse reaction; IV Status: Completed infusion; IV Intake: jw7 1000ml 18:48 Drug: TORadol - Ketorolac IVP 30 mg IVP once Route: IVP; Site: right antecubital; db 21:40 Follow up: Response: No adverse reaction; Marked relief of symptoms jw7 18:48 Drug: Ondansetron IVP 4 mg IVP once; over 2 minutes Route: IVP; Site: right antecubital;db 21:40 Follow up: Response: No adverse reaction; Marked relief of symptoms jw7 21:23 Drug: NS 0.9% IV 1000 ml IV at 1 bolus Per protocol; 1000 mL bolus Route: IV; Rate: 1 jw7 bolus; Site: right antecubital; 22:48 Follow up: Response: No adverse reaction; IV Status: Completed infusion; IV Intake: jw7 1000ml 21:40 Drug: Rocephin IV 1 grams IV at calculated rate once; Given slow IV push per pharmacy jw7 instructions Route: IV; Rate: calculated rate; Site: right antecubital; 22:42 Follow up: Response: No adverse reaction; IV Status: Completed infusion; IV Intake: jw7 100ml 22:56 Drug: HYDROcodone-acetaminophen PO 5 mg-325 mg 1 tabs PO once Route: PO; jj7 23:16 Follow up: Response: No adverse reaction jw7 Medication: 22:24 VIS not applicable for this client. jw7 Intake: 21:40 IV: 1000ml; Total: 1000ml. jw7 22:42 IV: 100ml; Total: 1100ml. jw7 22:48 IV: 1000ml; Total: 2100ml. jw7 Outcome: 23:12 Discharge ordered by MD. chapman 23:34 Discharged to home ambulatory, jw7 23:34 Condition: stable 23:34 Discharge instructions given to patient, Instructed on discharge instructions, follow up and referral plans. medication usage, Demonstrated understanding of instructions, follow-up care, medications, Prescriptions given X 2, 23:34 Patient left the ED. jw7 Signatures: Dispatcher [employer] EDMS Yen Winchester FNP-C ELECTRIC WELDER HELPER-Shayla Marshall RN RN iw Swanson, Donovan ds4 Ro Nix RN RN jw7 Hadash, Jennifer, FNP FNP Ric Kay RN RN jj7 Lynette Tapia RN RN db Samina Golden mg5 Corrections: (The following items were deleted from the chart) 23:16 17:45 Cardiovascular: Rhythm is sinus rhythm jw7 jw7
[2023-04-10 00:06] VITALS: TEMP 98.9
[2023-04-10 00:15] VITALS: BP 109/72; O2SAT 99
--- NOTE | 2023-04-10 13:08 | RAD REPORT ---
EXAM DESCRIPTION: Stone Protocol CLINICAL HISTORY: FLANK PAIN. COMPARISON: None. TECHNIQUE: Serial axial CT images were obtained from above the diaphragm through the pubic symphysis without administration of intravenous or oral contrast. All CT scans are performed using dose optimization techniques as appropriate, including automated exp osure control and/or standardized protocols, where dose is adjusted for indication for exam and body habitus. FINDINGS: Thoracic: No significant abnormality. Hepatobiliary: No obvious concerning hepatic lesion identified in the absence of intravenous contrast . The gallbladder is unremarkable. No biliary ductal dilatation. Pancreas: Questionable fat stranding about the head of the pancreas. No or peripancreatic fluid colle ctions. No dilation of the main pancreatic duct. Spleen: Unremarkable. Gastrointestinal: No evidence of bowel obstruction or perienteric inflammation. The appendix is diana l. Small to moderate amount of fecal material in the colon and rectum. Adrenals: No abnormality identified in either adrenal gland. Renal: No obvious parenchymal abnormality in either kidney in the absence of intravenous contrast. No hydronephrosis or urolithiasis. Bladder/Reproductive: Poor evaluation of the underdistended urinary bladder by CT technique. Hysterec fred. Vascular/Lymphatics: No lymphadenopathy identified by CT size criteria. Abdominal aorta is normal in caliber. Mild calcific atherosclerosis. Musculoskeletal: No concerning osseous lesion identified. 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 Demineralized appearance of the bones. Fluid / peritoneum: No significant free fluid. No free intraperitoneal air identified. IMPRESSION: 1. Questionable fat stranding about the head of the pancreas. Correlate for potential acute interstitial pancreatitis. 2. No additional potential acute abnormality is identified. Electronically signed by: Elizabeth Saucedo MD 04/09/2023 11:00 PM KEYBOARD OPERATOR Due to temporary technical issues with the PACS/Fluency reporting system, reports are being signed by the in house radiologists without review as a courtesy to insure prompt reporting. The interpreting radiologist is fully responsible for the content of the report.
== END 2023-04-09 23:34 | disposition home or self-care (01) ==
LOC: ER 17:47
DX: R30.0 Dysuria (principal); R10.9 Unspecified abdominal pain; Z72.0 Tobacco use
CPT/HCPCS: 96365; 96361; 87088; 85025; 81001; 87086; 36415; 87077; 87186; 83690; 80053; 76377; 74176; 96375; 99284; J2405; J7030 ×2; J0696

== ENCOUNTER 2024-05-05 17:07 | Inpatient (IN) | payer OTHER ==
--- OUTSIDE RECORDS SUMMARY | 2024-05-05 17:13 | XMS REPORT | Continuity of Care Document ---
Author Name Unknown Address [address] [facility] [address] [place] [address] [facility] thconnect Address [address] [facility] [address] [place] [address] Care Team Providers Care Program Aide Name Role Phone Felix Ritchie Primary Care Physician See, Count Includes [facility] Attending Clinician Unavailable ISABELL ANTONIO Attending Clinician Unavail able ROMINA GILES Attending Clinician Unavailable SANDY SCALES Attending Clinician Unavailab MT Myrick Attending Clinician Unavailable MT RIVERA Attending Clinician Unavailable STEPHANIE TRAN Attending Clinician Unavailab Stephanie Portillo DO Attending Clinician [phone] Isabell Jacobs Attending Clinician + ALESIA LECHUGA Attending Clinician Unavailable Alesia Lechuga NP Attending Clinician [phone] RICHARDSON LEON Attending Clinician Unavailable Richardson Leon DO Attending Clinician [phone] JOSE GUADALUPE CAMPBELL Attending Clinician Unavaila ble Doctor Unassigned, [place] Attending Clinician U navailrashid [email or web address]_S Attending Clinician Unavaila claudia SAMUEL, BRENNA VILLA Attending Clinician Unav ailrashid Samuel MD, Brenna Villa Attending Clinician + MARIA VICTORIA GARCÍA Attending Clinician Unavailab Maria Victoria Renteria MD Attending Clinician [phone] Maggie BARRERA Attending Clinician Unavailable Bruce PACMaggie Attending Clinician [phone] HOANG ALFARO Attending Clinician Unavailable MEHREEN SETHI Attending Clinician Unavailable Jossie PAC, Mehreen S Attending Clinician [phone] ARIANNE SHAY Attending Clinician Unavailjose Shay MD, Arianne Andrews Attending Clinician [phone] RONIT SANTIAGO Attending Clinician Unavailab zack Santiago EVENT LIGHTING SPECIALIST, Ronit Bejarano Attending Clinician [phone] DAYANNA HANNON Attending Clinician Unavailable Dayanna Hannon MD Attending Clinician [phone] DELL NOBLE Attending Clinician Unavailable Dell Noble MD Attending Clinician [phone] DANIEL JACOBSON Attending Clinician Unavailable Daniel Wylie Attending Clinician [phone] Jennifer Riley Attending Clinician [phone] Onur Goldstein MD Attending Clinician [phone] Glenis Becerra RN Attending Clinician Unavaila CLIVE Douglas Attending Clinician UnavailAtif Botello CNP Attending Clinician [phone] Clive Martinez Attending Clinician [phone] Delia Perkins RN Attending Clinician Unavailable Tessa Matos RN Attending Clinician UnavailIsaac Langley MD Attending Clinician [phone] ALESIA LECHUGA Admitting Clinician Unavailable JOSE GUADALUPE CAMPBELL Admitting Clinician Unavaila ble GC_GCBZW_Kadiyala_S Admitting Clinician Unavaila BRENNA Mcleod Admitting Clinician Unav ailable [facility] Admitting Clinician Unavailab ARIANNE Natarajan Admitting Clinician UnavailDAYANNA Martin Admitting Clinician Unavailable DELL NOBLE Admitting Clinician Unavailable Onur Goldstein MD Admitting Clinician RICHARDSON LEON Admitting Clinician Unavailable Payers Payer Name Policy Type Policy Number Effective Date Expirati on Date Source [employer] [id number] 2018 00:00:00 Problems Condition Name Condition Details Condition Category Status Onset Date Resolution Date Last Treatment Date Treating Clinician Comments Source Gastritis Gastritis Disease Active 08-04 00:00: 00 [facility] Insomnia Insomnia Disease Active 08-04 00:00: 00 [facility] Osteoarthr itis of knee Osteoarthr itis of knee Disease Active 08-04 00:00: 00 [facility] Severe anxiety with panic Severe anxiety with panic Disease Active 08-04 00:00: 00 [facility] Abdominal pain of unknown etiology Abdominal pain of unknown etiology Disease Active 2022-05 00:00: 00 [facility] BMI 25.0-25.9, adult BMI 25.0-25.9, adult Disease Active 11-01 00:00: 00 [facility] Positive depression screening Positive depression screening Disease Active 2019-05 00:00: 00 [facility] S/P hysterecto my S/P hysterecto my Disease Active 07-07 00:00: 00 [facility] Smoker Smoker Disease Active 2012-05 00:00: 00 [facility] Well woman exam Well woman exam Disease Active 2012-05 0 00:00: 00 [facility] Vaginal mass Vaginal mass Problem Active [facility] Tobacco use Tobacco use disorder Problem Active [facility] History of bilateral tubal ligation History of bilateral tubal ligation Disease Resolve d 6 00:00: 00 2023-09-18 00:00:00 2023-09-18 14:42:14 [facility] BMI 25.0-25.9, adult BMI 25.0-25.9, adult Disease Resolve d 6-14 00:00: 00 2023-09-18 00:00:00 2023-09-18 14:41:52 [facility] Enteritis Enteritis Disease Resolve d 2020-05 0 00:00: 00 2023-09-18 00:00:00 2023-09-18 14:42:06 [facility] Dysuria Dysuria Disease Resolve d 2019-05 00:00: 00 2023-09-18 00:00:00 2023-09-18 14:41:53 [facility] Acute cystitis without hematuria Acute cystitis without hematuria Disease Resolve d 06-10 00:00: 00 2020-04-01 00:00:00 2020-04-01 14:08:40 [facility] Dyspareuni a Dyspareuni a Disease Resolve d 02-17 00:00: 00 2020-04-01 00:00:00 2020-04-01 14:08:43 [facility] Uterine fibroid Uterine fibroid Disease Resolve d 07-07 00:00: 00 2015-07-27 00:00:00 2015-07-27 15:21:54 [facility] Anemia due to chronic blood loss Anemia due to chronic blood loss Disease Resolve d 07-07 00:00: 00 2015-07-27 00:00:00 2015-07-27 15:21:59 [facility] Abnormal uterine bleeding Abnormal uterine bleeding Disease Resolve d 06-10 00:00: 00 2015-07-27 00:00:00 2015-07-27 15:21:47 [facility] Enlarged uterus Enlarged uterus Disease Resolve d 02-17 00:00: 00 2015-07-27 00:00:00 2015-07-27 15:21:43 [facility] Abnormal vaginal bleeding Abnormal vaginal bleeding Disease Resolve d 02-17 00:00: 00 2015-06-10 00:00:00 2015-06-10 13:32:07 [facility] Urinary tract infection, site not specified Urinary tract infection, site not specified Disease Resolve d 2013-05 006 00:00: 00 2015-06-10 00:00:00 2015-06-10 13:31:47 [facility] Bacterial vaginosis Bacterial vaginosis Disease Resolve d 2012-05 00:00: 00 2015-06-10 00:00:00 2015-06-10 13:31:31 [facility] Irregular periods/me nstrual cycles Irregular periods/me nstrual cycles Disease Resolve d 2012-05 00:00: 00 2015-06-10 00:00:00 2015-06-10 13:31:44 [facility] Breast pain Breast pain Disease Resolve d 2012-05 00:00: 00 2013-05-09 00:00:00 2013-05-09 09:50:08 [facility] Urinary tract infection, site not specified Urinary tract infection, site not specified Disease Resolve d 2012-05 00:00: 00 2013-05-09 00:00:00 2013-05-09 09:50:11 [facility] Allergies, Adverse Reactions, Alerts Allergy Name Allergy Type Status Severity Reaction(s) Onset Date Inactive Date Treating Clinician Comments Source NO KNOWN ALLERGIE S Drug Class Active [facility] Social History Social Habit Start Date Stop Date Quantity Comments Source Sex Assigned [facility] Gender identity [facility] SDOH Alcohol Frequency [facility] History SDOH Alcohol Std Drinks [facility] History SDOH Alcohol Binge [facility] History of tobacco use Cigarette Smoker [facility] Alcoholic beverage intake 2023-09-28 00:00:00 2023-09-28 00:00:00 Current drinker of alcohol (finding) [facility] History of Social function 2023-09-18 00:00:00 2023-09-18 00:00:00 [facility] Tobacco use and exposure 2023-09-18 00:00:00 2023-09-18 00:00:00 Smokeless tobacco non-user [facility] Tobacco Comment 2023-09-18 00:00:00 2023-09-18 00:00:00 3-4 cigarretes per day [facility] Cigarettes smoked current (pack per day) - Reported 2023-09-18 00:00:00 2023-09-18 00:00:00 [facility] Cigarette pack-years 2023-09-18 00:00:00 2023-09-18 00:00:00 [facility] Alcohol intake 2023-09-18 00:00:00 2023-09-18 00:00:00 Current drinker of alcohol (finding) [facility] Exposure to SARS-CoV-2 (event) 2022-10-07 00:00:00 2022-10-17 17:31:00 Not sure [facility] Alcohol Comment 2013-03-12 00:00:00 2013-03-12 00:00:00 on occasion [facility] Smoking Status Start Date Stop Date Source Smokes tobacco daily 2023-09-18 00:00:00 [facility] Medications Ordered Medication Name Filled Medication Name Start Date Stop Date Current Medication? Ordering Clinician Indication Dosage Frequency Signature (SIG) Comments Components Source neomycin-po lymyxin-hyd rocort 3.5 mg-10,000 unit/mL-1 % ear drops,susp 2023-05 00:00: 00 Yes 4mg/mL- unit/mL -% Torstendavid Harrison Cipro 500 mg tablet 2023-05 00:00: 00 Yes 1mg Torsten F Hunter ibuprofen 800 mg tablet 2023-05 00:00: 00 Yes 1mg Torsten F Hunter ibuprofen 800 mg tablet 12-09 00:00: 00 Yes [id number] 800mg Take 1 tablet by mouth 3 (three) times daily as needed for Pain (scale 4-6). [facility] methylPREDN ISolone (MEDROL, AUBREE,) 4 mg tablets 12-09 00:00: 00 Yes [id number] Take by mouth SEE-INSTRU CTIONS. follow package directions [facility] loratadine- pseudoephed rine (CLARITIN-D 24 HOUR) 10-240 mg per 24 hr tablet 12-09 00:00: 00 Yes [id number] 1{tbl} Take 1 tablet by mouth in the morning. [facility] amoxicillin 500 mg tablet 12-09 00:00: 00 12-20 04:59 :00 No [id number] 500mg Take 1 tablet by mouth in the morning and 1 tablet in the evening. Do all this for 10 days. [facility] neomycin-po lymyxin-hyd rocort 3.5 mg-10,000 unit/mL-1 % ear drops,susp 11-12 00:00: 00 Yes 4mg/mL- unit/mL -% Torsten Harrison Cipro 500 mg tablet 11-12 00:00: 00 Yes 1mg Torsten Harrison ibuprofen 800 mg tablet 11-12 00:00: 00 Yes 1mg Torsten Harrison ofloxacin 0.3 % ear drops 10-18 00:00: 00 Yes 10% Torsten Harrison Cipro 500 mg tablet 10-18 00:00: 00 Yes 1mg Torsten Harrison cefuroxime axetil 500 mg tablet 10-18 00:00: 00 Yes 1mg Torsten Harrison ibuprofen 800 mg tablet 10-18 00:00: 00 Yes 1mg Torsten Harrison ondansetron HCl 4 mg tablet 10-18 00:00: 00 Yes 1mg Torsten Harrison ibuprofen (IBU) tablet 600 mg 09-28 04:00: 00 09-28 03:54 :00 No 600mg 600 mg, Oral, ONCE, 1 dose, On Sun09/28/23 at 2300, ANCELMO [facility] amoxicillin 875 mg tablet 09-27 00:00: 00 10-05 04:59 :00 No [id number] 875mg Take 1 tablet by mouth in the morning and 1 tablet in the evening. Do all this for 7 days. [facility] dicyclomine (BENTYL) injection 20 mg 08-05 00:30: 00 08-05 00:26 :00 No 20mg 20 mg, Intramuscu lar, ONCE NOW, 1 dose, On 08/05/23 at 1930, Routine [facility] iopamidol (ISOVUE 370-500 mL) injection 80 mL 08-04 22:15: 00 08-04 22:30 :00 No [id number] 80mL 80 mL, Intravenou s, ONCE, 1 dose, On Sun08/05/23 at 1730, Routine [facility] FENTanyl PF (SUBLIMAZE (PF)) injection 50 mcg 08-04 22:15: 00 08-04 21:38 :00 No 50ug 50 mcg, Slow IV Push, ONCE, 1 dose, On Sun08/05/23 at 1715, Routine [facility] ketorolac (TORADOL) injection 30 mg 08-04 21:45: 00 08-04 20:57 :00 No 30mg 30 mg, Slow IV Push, ONCE, 1 dose, On Sun08/05/23 at 1645, Routine [facility] NaCl 0.9% (NS) bolus infusion 1,000 mL 08-04 21:30: 00 08-04 22:45 :00 No 1000mL at 999 mL/hr, 1,000 mL, IV Infusion, ONCE, 1 dose, On Sun08/05/23 at 1630, [facility] ondansetron (ZOFRAN (PF)) injection 4 mg 08-04 20:45: 00 08-04 20:57 :00 No 4mg 4 mg, Slow IV Push, ONCE, 1 dose, On Sun08/05/23 at 1545, ANCELMO [facility] SERTraline (ZOLOFT) 50 mg tablet 08-04 15:33: 29 08-04 00:00 :00 No 50mg Take 1 tablet by mouth in the morning. [facility] ALPRAZolam 0.25 mg tablet 08-04 15:33: 26 08-04 00:00 :00 No .25mg Take 1 tablet by mouth 2 (two) times daily as needed for Anxiety. [facility] dicyclomine 20 mg tablet 08-04 00:00: 00 09-17 00:00 :00 No [id number] 20mg Take 1 tablet by mouth 4 (four) times daily as needed for Abdominal pain. [facility] neomycin-po lymyxin-hyd rocortisone otic solution 08-04 00:00: 00 08-12 04:59 :00 No [id number] 3[drp] Place 3 Drops in right ear 4 (four) times daily for 7 days. [facility] polyethylen e glycol [id number] 17 gram/dose powder 08-04 00:00: 00 08-10 04:59 :00 No [id number] 17g Take 17 g by mouth in the morning for 5 days. [facility] benzonatate 100 mg capsule 05-24 00:00: 00 Yes [id number] 100mg Take 1 capsule by mouth 3 (three) times daily as needed for Cough. [facility] chlorphenir amine 4 mg tablet 05-24 00:00: 00 Yes [id number] 4mg Take 1 tablet by mouth every 6 (six) hours as needed for Allergies or Runny nose. [facility] iopamidol (ISOVUE 370-500 mL) injection 65 mL 2022-05 05:15: 00 05-12 05:15 :00 No [id number] 65mL 65 mL, Intravenou s, ONCE, 1 dose, On Sun05/11/23 at 2315, Routine [facility] NaCl 0.9% (NS) bolus infusion 1,000 mL 2022-05 02:15: 00 05-12 03:45 :00 No 1000mL at 999 mL/hr, 1,000 mL, IV Infusion, ONCE, 1 dose, On Sun05/11/23 at 2015, ANCELMO [facility] morpHINE (4 mg/mL) injection 4 mg 2022-05 01:30: 00 05-12 01:44 :00 No 4mg 4 mg, Slow IV Push, ONCE, 1 dose, On 12/22/23 at 1930, STAT [facility] simethicone 80 mg chewable tablet 2022-05- 00:00: 00 06-11 05:59 :00 No [id number] 80mg Take 1 tablet by mouth after meals and at bedtime for 30 days. [facility] dicyclomine 20 mg tablet 2022-05- 00:00: 00 05-17 05:59 :00 No [id number] 20mg Take 1 tablet by mouth in the morning and 1 tablet in the evening. Do all this for 5 days. [facility] cyclobenzap rine (FLEXERIL) tablet 5 mg 2022-05 01:45: 00 03-07 00:57 :00 No 5mg 5 mg, Oral, ONCE NOW, 1 dose, On Sun03/06/23 at 2045, Routine [facility] ketorolac (TORADOL) injection 30 mg 2022-05 01:45: 00 03-07 00:56 :00 No 30mg 30 mg, Slow IV Push, ONCE, 1 dose, On Sun03/06/23 at 2045, Routine [facility] NaCl 0.9% (NS) bolus infusion 500 mL 2022-05 23:30: 00 03-07 00:57 :00 No 500mL at 999 mL/hr, 500 mL, IV Infusion, ONCE, 1 dose, On Sun03/06/23 at 1830, STAT [facility] acetaminoph en (TYLENOL) tablet 1,000 mg 2022-05 22:00: 00 03-06 23:46 :00 No 1000mg 1,000 mg, Oral, ONCE NOW, 1 dose, On Sun03/06/23 at 1700, Routine [facility] diphenhydrA MINE (BENADRYL) injection 25 mg 2022-05 21:15: 00 03-06 23:45 :00 No 25mg 25 mg, Slow IV Push, ONCE, 1 dose, On Sun03/06/23 at 1615, STAT [facility] metoclopram kelsie HCl (REGLAN) injection 10 mg 2022-05 21:15: 00 03-06 23:45 :00 No 10mg 10 mg, Slow IV Push, ONCE, 1 dose, On Sun03/06/23 at 1615, [facility] iopamidol (ISOVUE 370-500 mL) injection 70 mL 02-03 19:30: 00 02-03 19:30 :00 No [id number] 70mL 70 mL, Intravenou s, ONCE, 1 dose, On 02/03/23 at 1430, Routine [facility] HYDROcodone -acetaminop hen (NORCO 5) 5-325 mg tablet 1 tablet 02-03 19:15: 00 02-03 19:12 :00 No 1{tbl} 1 tablet, Oral, ONCE, 1 dose, On 02/03/23 at 1415, [facility] ketorolac (TORADOL) injection 30 mg 02-03 19:15: 00 02-03 18:12 :00 No 30mg 30 mg, Slow IV Push, ONCE, 1 dose, On 02/03/23 at 1415, [facility] NaCl 0.9% (NS) bolus infusion 1,000 mL 02-03 19:00: 00 02-03 19:11 :00 No 1000mL at 999 mL/hr, 1,000 mL, IV Infusion, ONCE, 1 dose, On 02/03/23 at 1400, [facility] ondansetron (ZOFRAN (PF)) injection 4 mg 02-03 18:15: 00 02-03 18:11 :00 No 4mg 4 mg, Slow IV Push, ONCE, 1 dose, On 02/03/23 at 1315, [facility] ondansetron 4 mg disintegrat ing tablet 02-03 00:00: 00 08-04 00:00 :00 No [id number] 4mg Take 1 tablet by mouth every 8 (eight) hours as needed for Nausea and Vomiting (N/V). [facility] traMADoL 50 mg tablet 9-16 00:00: 00 02-11 04:59 :00 No [id number] 50mg Take 1 tablet by mouth every 6 (six) hours as needed for Pain (scale 7-10) for up to 7 days. Indication s: acute pain [facility] phenazopyri dine (PYRIDIUM) tablet 200 mg 10-18 01:15: 00 10-18 01:19 :00 No 200mg 200 mg, Oral, ONCE, 1 dose, On Sun10/17/22 at 2015, [facility] cefTRIAXone (ROCEPHIN) 1,000 mg in NaCl 0.9% (NS) 100 mL MINI-BAG 10-18 01:15: 00 10-18 01:49 :00 No 1000mg 1,000 mg, IV Piggyback, ONCE, 1 dose, On Sun10/17/22 at 2014, Administer over 30 Minutes, 100 mL
Reas on for Anti-Infec tive: Documented Infection< br>Documen colby Infection Site: Urine
D uration of Therapy: Other (see Comments) [facility] NaCl 0.9% (NS) bolus infusion 1,000 mL 10-18 00:45: 00 10-18 00:54 :00 No 1000mL at 999 mL/hr, 1,000 mL, IV Infusion, ONCE, 1 dose, On Sun10/17/22 at 1945, STAT [facility] ondansetron (ZOFRAN (PF)) injection 4 mg 10-18 00:45: 00 10-17 23:56 :00 No 4mg 4 mg, Slow IV Push, ONCE, 1 dose, [facility]10/17/22 at 1945[facility] 600 mg 10-17 23:45: 00 10-17 23:56 :00 No 600mg 600 mg, Oral, ONCE, 1 dose, On Sun10/17/22 at 1845, [facility] ondansetron 4 mg disintegrat ing tablet 10-17 00:00: 00 Yes [id number] 4mg Take 1 tablet by mouth every 8 (eight) hours as needed for Nausea and Vomiting (N/V). [facility] ibuprofen 600 mg tablet 10-17 00:00: 00 08-04 00:00 :00 No [id number] 600mg Take 1 tablet by mouth every 6 (six) hours as needed for Pain (scale 4-6). [facility] cefdinir 300 mg capsule 10-17 00:00: 00 10-28 04:59 :00 No [id number] 300mg Take 1 capsule by mouth every 12 (twelve) hours for 10 days. [facility] acetaminoph en (TYLENOL) tablet 650 mg 08-06 07:15: 00 08-06 07:18 :00 No 650mg 650 mg, Oral, ONCE, 1 dose, On 08/06/22 at 0215, ANCELMO [facility] SERTraline (ZOLOFT) 50 mg tablet 08-06 03:25: 57 Yes 50mg Take 1 tablet by mouth in the morning. [facility] ALPRAZolam 0.25 mg tablet 08-06 03:25: 57 Yes .25mg Take 1 tablet by mouth 2 (two) times daily as needed for Anxiety. [facility] ibuprofen 600 mg tablet 08-06 00:00: 00 08-04 00:00 :00 No [id number] 600mg Take 1 tablet by mouth every 6 (six) hours as needed for Pain (scale 4-6) or Pain (scale 1-3). [facility] acetaminoph en (TYLENOL) tablet 1,000 mg 07-20 09:15: 00 07-20 08:15 :00 No 1000mg 1,000 mg, Oral, ONCE, 1 dose, On Beatriz 07/20/22 at 0315, Routine [facility] maalox:diph enhydrAMINE :lidocaine 2 % viscous 1:1:1 (FIRST-MOUT HWASH BLM) oral suspension 15 mL 07-20 08:15: 00 07-20 08:16 :00 No 15mL 15 mL, Oral, ONCE, 1 dose, On Sun07/20/22 at 0215, Routine [facility] NaCl 0.9% (NS) bolus infusion 1,000 mL 07-20 07:30: 00 07-20 08:14 :00 No 1000mL at 999 mL/hr, 1,000 mL, IV Infusion, ONCE, 1 dose, On Sun07/20/22 at 0130, STAT [facility] ondansetron (ZOFRAN (PF)) injection 4 mg 07-20 06:30: 00 07-20 06:33 :00 No 4mg 4 mg, Slow IV Push, ONCE, 1 dose, On Sun07/20/22 at 0030, ANCELMO [facility] amoxicillin -clavulanat e 875-125 mg per tablet 07-20 00:00: 00 Yes [id number] 1{tbl} Take 1 tablet by mouth every 12 (twelve) hours. [facility] ondansetron 4 mg disintegrat ing tablet 07-20 00:00: 00 Yes [id number] 4mg Take 1 tablet by mouth every 8 (eight) hours as needed for Nausea and Vomiting (N/V). [facility] phenazopyri dine (PYRIDIUM) tablet 200 mg 05-23 17:15: 00 05-23 17:15 :00 No 200mg 200 mg, Oral, ONCE, 1 dose, On Sun05/23/22 at 1115, ANCELMO [facility] phenazopyri dine 200 mg tablet 05-23 00:00: 00 08-06 00:00 :00 No [id number] 200mg Take 1 tablet by mouth in the morning and 1 tablet at noon and 1 tablet in the evening. [facility] cephALEXin (KEFLEX) 500 mg capsule 05-23 00:00: 00 05-31 05:59 :00 No [id number] 500mg Take 1 capsule by mouth in the morning and 1 capsule at noon and 1 capsule in the evening. Do all this for 7 days. [facility] piperacilli n-tazobacta m (ZOSYN) 3.375 g in NaCl 0.9% (NS) 50 mL MINI-BAG 2021-05 00:00: 00 03-14 00:43 :00 No 3.375g 3.375 g, IV Piggyback, ONCE, 1 dose, On Sun03/13/22 at 1900, Administer over 30 Minutes, 50 mL
Reas on for Anti-Infec tive: Documented Infection< br>Documen colby Infection Site: Abdominal< br>Duratio n of Therapy: 10 days [facility] iopamidol (ISOVUE 370-500 mL) injection 70 mL 2021-05 23:30: 00 03-13 23:30 :00 No [id number] 70mL 70 mL, Intravenou s, ONCE, 1 dose, On Sun03/13/22 at 1830, Routine [facility] ketorolac (TORADOL) injection 15 mg 2021-05 22:00: 00 03-13 21:33 :00 No 15mg 15 mg, Slow IV Push, ONCE, 1 dose, On Sun03/13/22 at 1700, Routine [facility] ondansetron (ZOFRAN) 4 mg tablet 2021-05 00:00: 00 08-06 00:00 :00 No [id number] 4mg Take 1 tablet by mouth every 8 (eight) hours as needed for Nausea and Vomiting (N/V). [facility] traMADoL 50 mg tablet 2021-05 00:00: 00 08-06 00:00 :00 No [id number] 50mg Take 1 tablet by mouth every 6 (six) hours as needed for Pain (scale 7-10). Indication s: acute pain [facility] amoxicillin -clavulanat e 875-125 mg per tablet 2021-05 00:00: 00 03-24 04:59 :00 No [id number] 1{tbl} Take 1 tablet by mouth every 12 (twelve) hours for 10 days. [facility] ketorolac (TORADOL) injection 30 mg 01-22 03:30: 00 01-22 02:38 :00 No 30mg 30 mg, Slow IV Push, ONCE, 1 dose, On 01/21/22 at 2230, Routine [facility] iopamidol (ISOVUE 370-500 mL) injection 60 mL 01-22 02:30: 00 01-22 02:30 :00 No [id number] 60mL 60 mL, Intravenou s, ONCE, 1 dose, On 01/21/22 at 2130, Routine [facility] ondansetron (ZOFRAN (PF)) injection 4 mg 01-22 01:15: 00 01-22 01:15 :00 No 4mg 4 mg, Slow IV Push, ONCE, 1 dose, On 01/21/22 at 2014, ANCELMO [facility] NaCl 0.9% (NS) bolus infusion 500 mL 01-22 01:15: 00 01-22 02:35 :00 No 500mL at 999 mL/hr, 500 mL, IV Infusion, ONCE, 1 dose, On 01/21/22 at 2015, STAT [facility] cefdinir 300 mg capsule 01-21 00:00: 00 08-06 00:00 :00 No [id number] 300mg Take 1 capsule by mouth every 12 (twelve) hours. [facility] ketorolac 10 mg tablet 01-21 00:00: 00 08-06 00:00 :00 No [id number] 10mg Take 1 tablet by mouth every 6 (six) hours as needed for Pain (scale 4-6). [facility] ondansetron (ZOFRAN) 4 mg tablet 01-21 00:00: 00 08-06 00:00 :00 No [id number] 4mg Take 1 tablet by mouth every 8 (eight) hours as needed for Nausea and Vomiting (N/V). [facility] traMADoL (ULTRAM) 50 mg tablet 10-26 00:00: 00 08-06 00:00 :00 No [id number] 50mg Take 1 tablet by mouth every 6 (six) hours as needed for Pain (scale 7-10). Indication s: acute pain [facility] metroNIDAZO LE 500 mg tablet 10-26 00:00: 00 08-06 00:00 :00 No [id number] 500mg Take 1 tablet by mouth 2 (two) times daily. [facility] cefdinir 300 mg capsule 10-26 00:00: 00 11-03 04:59 :00 No [id number] 300mg Take 1 capsule by mouth 2 (two) times daily for 7 days. [facility] doxycycline hyclate 100 mg capsule 10-26 00:00: 00 11-01 00:00 :00 No [id number] 100mg Take 1 capsule by mouth 2 (two) times daily. [facility] ondansetron 4 mg disintegrat ing tablet 10-26 00:00: 00 11-01 00:00 :00 No [id number] 4mg Take 1 tablet by mouth every 8 (eight) hours as needed for Nausea and Vomiting (N/V). [facility] amoxicillin -clavulanat e 875-125 mg per tablet 2020-05 00:00: 00 11-01 00:00 :00 No [id number] 1{tbl} Take 1 tablet by mouth every 12 (twelve) hours. [facility] ofloxacin 0.3 % otic drops 2020-05 00:00: 00 11-01 00:00 :00 No [id number] 5[drp] Place 5 Drops in right ear 2 (two) times daily. [facility] neomycin-po lymyxin-hyd rocortisone 3.5-10,000- 1 mg/mL-unit/ mL-% otic susp 2020-05 00:00: 00 11-01 00:00 :00 No [id number] 4[drp] Place 4 Drops in right ear 4 (four) times daily. [facility] ciprofloxac in HCl 500 mg tablet 2020-05 00:00: 00 11-01 00:00 :00 No [id number] 500mg Take 1 tablet by mouth 2 (two) times daily. [facility] phenazopyri dine 200 mg tablet 2020-05 00:00: 00 11-01 00:00 :00 No [id number] 200mg Take 1 tablet by mouth 3 (three) times daily. [facility] guaiFENesin (MUCINEX) 600 mg tablet 2020-05 00:00: 00 11-01 00:00 :00 No [id number] 600mg Take 1 tablet by mouth every 12 (twelve) hours. [facility] Azithromyci n 250 MG Azithromyci n 250 MG 2019-05 00:00: 00 05-11 00:00 :00 No QD Azithromyc in 250 MG Omeprazole 40 MG Omeprazole 40 MG 08-21 00:00: 00 No 1{capsu le} BID Omeprazole 40 MG Protonix Protonix 08-21 00:00: 00 Yes Na Arriaza 1 tablet [facility] Omeprazole Omeprazole 08-21 00:00: 00 Yes Na Arriaza 1 capsule [facility] Zoloft Zoloft Yes Na Arriaza 1 tablet [facility] Alprazolam Alprazolam Yes Na Arriaza 1 tablet [facility] Ondansetron HCl Ondansetron HCl Yes Na Arriaza as directed [facility] Tramadol HCl Tramadol HCl Yes Na Arriaza as directed [facility] Dicyclomine HCl Dicyclomine HCl Yes Na Arriaza 1 tablet [facility] Famotidine Famotidine Yes Na Arriaza 1 tablet at bedtime [facility] Probiotic Probiotic Yes Na Arriaza as directed [facility] Cefdinir Cefdinir Yes Na Arriaza as directed [facility] Ondansetron HCl 8 MG Ondansetron HCl 8 MG No Ondansetro n HCl 8 MG Probiotic - Probiotic - No Pr obiotic - Famotidine 20 MG Famotidine 20 MG No 1{table t_at_be dtime} QD Famotidine 20 MG Zoloft 50 MG Zoloft 50 MG No 1{table t} QD Zoloft 50 MG Dicyclomine HCl 10 MG Dicyclomine HCl 10 MG No 1{table t} QD Dicyclomin e HCl 10 MG Protonix 40 MG Protonix 40 MG No 1{table t} QD Protonix 40 MG Alprazolam 0.25 MG Alprazolam 0.25 MG No 1{table t} Alprazolam 0.25 MG Immunizations Ordered Immunization Name Filled Immunization Name Date Status Comments Source Influenza Virus Vaccine Quad IM, Preserv and ABX Free 6 MO-64 YRS 2021-03-12 00:00:00 Completed [facility] SARS-COV-2 COVID-19 PFIZER VACCINE 2021-03-12 00:00:00 Completed [facility] Influenza Virus Vaccine Quad IM, Preserv and ABX Free 6 MO-64 YRS 2021-03-12 00:00:00 Completed [facility] SARS-COV-2 COVID-19 PFIZER VACCINE 2021-03-12 00:00:00 Completed [facility] Influenza Virus Vaccine Quad IM, Preserv and ABX Free 6 MO-64 YRS 2021-03-12 00:00:00 Completed [facility] SARS-COV-2 COVID-19 PFIZER VACCINE 2021-03-12 00:00:00 Completed [facility] Influenza Virus Vaccine Quad IM, Preserv and ABX Free 6 MO-64 YRS 2021-03-12 00:00:00 Completed [facility] SARS-COV-2 COVID-19 PFIZER VACCINE 2021-03-12 00:00:00 Completed [facility] Influenza Virus Vaccine Quad IM, Preserv and ABX Free 6 MO-64 YRS 2021-03-12 00:00:00 Completed [facility] SARS-COV-2 COVID-19 PFIZER VACCINE 2021-03-12 00:00:00 Completed [facility] Influenza Virus Vaccine Quad IM, Preserv and ABX Free 6 MO-64 YRS 2021-03-12 00:00:00 Completed [facility] SARS-COV-2 COVID-19 PFIZER VACCINE 2021-03-12 00:00:00 Completed [facility] Influenza Virus Vaccine Quad IM, Preserv and ABX Free 6 MO-64 YRS 2021-03-12 00:00:00 Completed [facility] SARS-COV-2 COVID-19 PFIZER VACCINE 2021-03-12 00:00:00 Completed [facility] Influenza Virus Vaccine Quad IM, Preserv and ABX Free 6 MO-64 YRS 2021-03-12 00:00:00 Completed [facility] SARS-COV-2 COVID-19 PFIZER VACCINE 2021-03-12 00:00:00 Completed [facility] Influenza Virus Vaccine Quad IM, Preserv and ABX Free 6 MO-64 YRS 2021-03-12 00:00:00 Completed [facility] SARS-COV-2 COVID-19 PFIZER VACCINE 2021-03-12 00:00:00 Completed [facility] Influenza Virus Vaccine Quad IM, Preserv and ABX Free 6 MO-64 YRS (FLUCELVAX) 2021-03-12 00:00:00 Completed [facility] SARS-COV-2 COVID-19 PFIZER VACCINE 2021-03-12 00:00:00 Completed [facility] Influenza Virus Vaccine Quad .5 mL IM 6+ MO 2020-04-01 00:00:00 Completed [facility] Influenza Virus Vaccine Quad .5 mL IM 6+ MO 2020-04-01 00:00:00 Completed [facility] Influenza Virus Vaccine Quad .5 mL IM 6+ MO 2020-04-01 00:00:00 Completed [facility] Influenza Virus Vaccine Quad .5 mL IM 6+ MO 2020-04-01 00:00:00 Completed [facility] Influenza Virus Vaccine Quad .5 mL IM 6+ MO 2020-04-01 00:00:00 Completed [facility] Influenza Virus Vaccine Quad .5 mL IM 6+ MO 2020-04-01 00:00:00 Completed [facility] Influenza Virus Vaccine Quad .5 mL IM 6+ MO 2020-04-01 00:00:00 Completed [facility] Influenza Virus Vaccine Quad .5 mL IM 6+ MO 2020-04-01 00:00:00 Completed [facility] Influenza Virus Vaccine Quad .5 mL IM 6+ MO 2020-04-01 00:00:00 Completed [facility] Influenza Virus Vaccine Quad .5 mL IM 6+ MO (FLUZONE/FLULAVAL/F LUARIX) 2020-04-01 00:00:00 Completed [facility] Kenalog (Triamcinolone) Kenalog (Triamcinolone) 2019-07-29 11:43:00 Completed [facility] Kenalog (Triamcinolone) Kenalog (Triamcinolone) 2018-07-15 11:45:00 Completed [facility] Afluria Afluria 2018-06-19 10:52:00 Completed [facility] Afluria Afluria 2018-06-19 00:00:00 Completed [facility] Pneumococcal Polysaccharide, PPSV23 (PNEUMOVAX) 2015-07-09 00:00:00 Completed [facility] Influenza Virus Vaccine Quad IM 3+ YRS 2015-07-09 00:00:00 Completed [facility] Pneumococcal Polysaccharide, PPSV23 (PNEUMOVAX) 2015-07-09 00:00:00 Completed [facility] Influenza Virus Vaccine Quad IM 3+ YRS 2015-07-09 00:00:00 Completed [facility] Pneumococcal Polysaccharide, PPSV23 (PNEUMOVAX) 2015-07-09 00:00:00 Completed [facility] Influenza Virus Vaccine Quad IM 3+ YRS 2015-07-09 00:00:00 Completed [facility] Pneumococcal Polysaccharide, PPSV23 (PNEUMOVAX) 2015-07-09 00:00:00 Completed [facility] Influenza Virus Vaccine Quad IM 3+ YRS 2015-07-09 00:00:00 Completed [facility] Pneumococcal Polysaccharide, PPSV23 (PNEUMOVAX) 2015-07-09 00:00:00 Completed [facility] Influenza Virus Vaccine Quad IM 3+ YRS 2015-07-09 00:00:00 Completed [facility] Pneumococcal Polysaccharide, PPSV23 (PNEUMOVAX) 2015-07-09 00:00:00 Completed [facility] Influenza Virus Vaccine Quad IM 3+ YRS 2015-07-09 00:00:00 Completed [facility] Pneumococcal Polysaccharide, PPSV23 (PNEUMOVAX) 2015-07-09 00:00:00 Completed [facility] Influenza Virus Vaccine Quad IM 3+ YRS 2015-07-09 00:00:00 Completed [facility] Pneumococcal Polysaccharide, PPSV23 (PNEUMOVAX) 2015-07-09 00:00:00 Completed [facility] Influenza Virus Vaccine Quad IM 3+ YRS 2015-07-09 00:00:00 Completed [facility] Pneumococcal Polysaccharide, PPSV23 (PNEUMOVAX) 2015-07-09 00:00:00 Completed [facility] Influenza Virus Vaccine Quad IM 3+ YRS 2015-07-09 00:00:00 Completed [facility] Pneumococcal Polysaccharide, PPSV23 (PNEUMOVAX) 2015-07-09 00:00:00 Completed [facility] Influenza Virus Vaccine Quad IM 3+ YRS 2015-07-09 00:00:00 Completed [facility] Influenza Virus Vaccine Quad IM, Preserv and ABX Free 6 MO-64 YRS (FLUCELVAX) Unknown Completed [facility] SARS-COV-2 COVID-19 PFIZER VACCINE Unknown Completed [facility] Pneumococcal Polysaccharide, PPSV23 (PNEUMOVAX) Unknown Completed [facility] Influenza Virus Vaccine Quad IM, Preserv and ABX Free 6 MO-64 YRS (FLUCELVAX) Unknown Completed [facility] SARS-COV-2 COVID-19 PFIZER VACCINE Unknown Completed [facility] Influenza Virus Vaccine Quad IM 3+ YRS Unknown Completed [facility] Pneumococcal Polysaccharide, PPSV23 (PNEUMOVAX) Unknown Completed [facility] Influenza Virus Vaccine Quad IM 3+ YRS Unknown Completed [facility] Influenza Virus Vaccine Quad IM, Preserv and ABX Free 6 MO-64 YRS (FLUCELVAX) Unknown Completed [facility] SARS-COV-2 COVID-19 PFIZER VACCINE Unknown Completed [facility] Pneumococcal Polysaccharide, PPSV23 (PNEUMOVAX) Unknown Completed [facility] Influenza Virus Vaccine Quad IM 3+ YRS Unknown Completed [facility] Influenza Virus Vaccine Quad IM, Preserv and ABX Free 6 MO-64 YRS (FLUCELVAX) Unknown Completed [facility] SARS-COV-2 COVID-19 PFIZER VACCINE Unknown Completed [facility] Pneumococcal Polysaccharide, PPSV23 (PNEUMOVAX) Unknown Completed [facility] Influenza Virus Vaccine Quad IM 3+ YRS Unknown Completed [facility] Influenza Virus Vaccine Quad IM, Preserv and ABX Free 6 MO-64 YRS (FLUCELVAX) Unknown Completed [facility] SARS-COV-2 COVID-19 PFIZER VACCINE Unknown Completed [facility] Pneumococcal Polysaccharide, PPSV23 (PNEUMOVAX) Unknown Completed [facility] Influenza Virus Vaccine Quad IM 3+ YRS Unknown Completed [facility] Influenza Virus Vaccine Quad IM, Preserv and ABX Free 6 MO-64 YRS (FLUCELVAX) Unknown Completed [facility] SARS-COV-2 COVID-19 PFIZER VACCINE Unknown Completed [facility] Pneumococcal Polysaccharide, PPSV23 (PNEUMOVAX) Unknown Completed [facility] Influenza Virus Vaccine Quad IM 3+ YRS Unknown Completed [facility] Pneumococcal Polysaccharide, PPSV23 (PNEUMOVAX) Unknown Completed [facility] Influenza Virus Vaccine Quad IM 3+ YRS Unknown Completed [facility] Influenza Virus Vaccine Quad IM, Preserv and ABX Free 6 MO-64 YRS (FLUCELVAX) Unknown Completed [facility] SARS-COV-2 COVID-19 PFIZER VACCINE Unknown Completed [facility] Pneumococcal Polysaccharide, PPSV23 (PNEUMOVAX) Unknown Completed [facility] Influenza Virus Vaccine Quad IM 3+ YRS Unknown Completed [facility] Influenza Virus Vaccine Quad IM, Preserv and ABX Free 6 MO-64 YRS (FLUCELVAX) Unknown Completed [facility] SARS-COV-2 COVID-19 PFIZER VACCINE Unknown Completed [facility] Pneumococcal Polysaccharide, PPSV23 (PNEUMOVAX) Unknown Completed [facility] Influenza Virus Vaccine Quad IM 3+ YRS Unknown Completed [facility] Influenza Virus Vaccine Quad IM, Preserv and ABX Free 6 MO-64 YRS (FLUCELVAX) Unknown Completed [facility] SARS-COV-2 COVID-19 PFIZER VACCINE Unknown Completed [facility] Pneumococcal Polysaccharide, PPSV23 (PNEUMOVAX) Unknown Completed [facility] Influenza Virus Vaccine Quad IM 3+ YRS Unknown Completed [facility] Influenza Virus Vaccine Quad IM, Preserv and ABX Free 6 MO-64 YRS (FLUCELVAX) Unknown Completed [facility] SARS-COV-2 COVID-19 PFIZER VACCINE Unknown Completed [facility] Pneumococcal Polysaccharide, PPSV23 (PNEUMOVAX) Unknown Completed [facility] Influenza Virus Vaccine Quad IM 3+ YRS Unknown Completed [facility] Vital Signs Vital Name Observation Time Observation Value Comments S ource Systolic blood pressure 2023-12-10 23:00:00 118 mm[Hg] [facility] Diastolic blood pressure 2023-12-10 23:00:00 77 mm[Hg] [facility] Heart rate 2023-12-10 23:00:00 70 /min [facility] Body temperature 2023-12-10 23:00:00 37.5 Laura [facility] Respiratory rate 2023-12-10 23:00:00 18 /min [facility] Body height 2023-12-10 23:00:00 157.5 cm [facility] Body weight 2023-12-10 23:00:00 58.968 kg [facility] BMI 2023-12-10 23:00:00 23.78 kg/m2 [facility] Oxygen saturation in Arterial blood by Pulse oximetry 2023-12-10 23:00:00 100 /min [facility] Systolic blood pressure 2023-09-29 03:43:00 119 mm[Hg] [facility] Diastolic blood pressure 2023-09-29 03:43:00 79 mm[Hg] [facility] Heart rate 2023-09-29 03:43:00 72 /min [facility] Body temperature 2023-09-29 03:43:00 37.17 Laura [facility] Respiratory rate 2023-09-29 03:43:00 18 /min [facility] Body height 2023-09-29 03:43:00 157.5 cm [facility] Body weight 2023-09-29 03:43:00 58.968 kg [facility] BMI 2023-09-29 03:43:00 23.78 kg/m2 [facility] Oxygen saturation in Arterial blood by Pulse oximetry 2023-09-29 03:43:00 99 /min [facility] Systolic blood pressure 2023-09-18 18:26:00 118 mm[Hg] [facility] Diastolic blood pressure 2023-09-18 18:26:00 73 mm[Hg] [facility] Heart rate 2023-09-18 18:26:00 71 /min [facility] Body temperature 2023-09-18 18:26:00 36.61 Laura [facility] Respiratory rate 2023-09-18 18:26:00 18 /min [facility] Body height 2023-09-18 18:26:00 157.5 cm [facility] Body weight 2023-09-18 18:26:00 57.244 kg [facility] BMI 2023-09-18 18:26:00 23.08 kg/m2 [facility] Systolic blood pressure 2023-08-06 00:30:00 112 mm[Hg] [facility] Diastolic blood pressure 2023-08-06 00:30:00 67 mm[Hg] [facility] Heart rate 2023-08-06 00:30:00 64 /min [facility] Respiratory rate 2023-08-06 00:30:00 19 /min [facility] Oxygen saturation in Arterial blood by Pulse oximetry 2023-08-06 00:30:00 94 /min [facility] Body temperature 2023-08-05 20:08:00 36.72 Laura [facility] Body height 2023-08-05 20:08:00 157.5 cm [facility] Body weight 2023-08-05 20:08:00 54.432 kg [facility] BMI 2023-08-05 20:08:00 21.95 kg/m2 [facility] Systolic blood pressure 2023-05-25 01:09:00 129 mm[Hg] [facility] Diastolic blood pressure 2023-05-25 01:09:00 80 mm[Hg] [facility] Heart rate 2023-05-25 01:09:00 73 /min [facility] Body temperature 2023-05-25 01:09:00 36.72 Laura [facility] Respiratory rate 2023-05-25 01:09:00 18 /min [facility] Body height 2023-05-25 01:09:00 152.4 cm [facility] Body weight 2023-05-25 01:09:00 58.968 kg [facility] BMI 2023-05-25 01:09:00 25.39 kg/m2 [facility] Oxygen saturation in Arterial blood by Pulse oximetry 2023-05-25 01:09:00 100 /min [facility] Systolic blood pressure 2023-05-12 05:30:00 96 mm[Hg] [facility] Diastolic blood pressure 2023-05-12 05:30:00 66 mm[Hg] [facility] Heart rate 2023-05-12 05:30:00 59 /min [facility] Respiratory rate 2023-05-12 05:30:00 17 /min [facility] Oxygen saturation in Arterial blood by Pulse oximetry 2023-05-12 05:30:00 97 /min [facility] Body temperature 2023-05-12 00:56:00 37.22 Laura [facility] Systolic blood pressure 2023-03-07 02:30:00 135 mm[Hg] [facility] Diastolic blood pressure 2023-03-07 02:30:00 84 mm[Hg] [facility] Heart rate 2023-03-07 02:30:00 61 /min [facility] Body temperature 2023-03-07 02:30:00 36.67 Laura [facility] Respiratory rate 2023-03-07 02:30:00 18 /min [facility] Oxygen saturation in Arterial blood by Pulse oximetry 2023-03-07 02:30:00 97 /min [facility] Body height 2023-03-06 19:55:00 152.4 cm [facility] Body weight 2023-03-06 19:55:00 54.432 kg [facility] BMI 2023-03-06 19:55:00 23.44 kg/m2 [facility] Systolic blood pressure 2023-02-03 19:12:00 109 mm[Hg] [facility] Diastolic blood pressure 2023-02-03 19:12:00 67 mm[Hg] [facility] Heart rate 2023-02-03 19:12:00 66 /min [facility] Respiratory rate 2023-02-03 19:12:00 10 /min [facility] Oxygen saturation in Arterial blood by Pulse oximetry 2023-02-03 19:12:00 99 /min [facility] Body temperature 2023-02-03 17:51:00 37.28 Laura [facility] Body height 2023-02-03 17:51:00 152.4 cm [facility] Body weight 2023-02-03 17:51:00 54.432 kg [facility] BMI 2023-02-03 17:51:00 23.44 kg/m2 [facility] Systolic blood pressure 2022-10-18 02:25:00 99 mm[Hg] [facility] Diastolic blood pressure 2022-10-18 02:25:00 60 mm[Hg] [facility] Heart rate 2022-10-18 02:25:00 58 /min [facility] Respiratory rate 2022-10-18 02:25:00 16 /min [facility] Oxygen saturation in Arterial blood by Pulse oximetry 2022-10-18 02:25:00 96 /min [facility] Body temperature 2022-10-17 22:33:00 37 Laura [facility] Body height 2022-10-17 22:33:00 152.4 cm [facility] Body weight 2022-10-17 22:33:00 58.605 kg [facility] BMI 2022-10-17 22:33:00 25.23 kg/m2 [facility] Systolic blood pressure 2022-08-06 06:45:00 161 mm[Hg] [facility] Diastolic blood pressure 2022-08-06 06:45:00 98 mm[Hg] [facility] Heart rate 2022-08-06 06:45:00 124 /min [facility] Body temperature 2022-08-06 06:45:00 37.22 Laura [facility] Respiratory rate 2022-08-06 06:45:00 16 /min [facility] Body height 2022-08-06 06:45:00 157.5 cm [facility] Body weight 2022-08-06 06:45:00 58.968 kg [facility] BMI 2022-08-06 06:45:00 23.78 kg/m2 [facility] Oxygen saturation in Arterial blood by Pulse oximetry 2022-08-06 06:45:00 99 /min [facility] Systolic blood pressure 2022-07-20 07:06:00 116 mm[Hg] [facility] Diastolic blood pressure 2022-07-20 07:06:00 72 mm[Hg] [facility] Heart rate 2022-07-20 07:06:00 68 /min [facility] Body temperature 2022-07-20 07:06:00 36.78 Laura [facility] Respiratory rate 2022-07-20 07:06:00 16 /min [facility] Body weight 2022-07-20 07:06:00 61.236 kg [facility] BMI 2022-07-20 07:06:00 24.69 kg/m2 [facility] Oxygen saturation in Arterial blood by Pulse oximetry 2022-07-20 07:06:00 99 /min [facility] Systolic blood pressure 2022-05-23 16:16:00 112 mm[Hg] [facility] Diastolic blood pressure 2022-05-23 16:16:00 78 mm[Hg] [facility] Heart rate 2022-05-23 16:16:00 76 /min [facility] Body temperature 2022-05-23 16:16:00 37.11 Laura [facility] Respiratory rate 2022-05-23 16:16:00 20 /min [facility] Body height 2022-05-23 16:16:00 157.5 cm [facility] Body weight 2022-05-23 16:16:00 58.968 kg [facility] BMI 2022-05-23 16:16:00 23.78 kg/m2 [facility] Oxygen saturation in Arterial blood by Pulse oximetry 2022-05-23 16:16:00 98 /min [facility] Systolic blood pressure 2022-03-14 00:39:00 108 mm[Hg] [facility] Diastolic blood pressure 2022-03-14 00:39:00 72 mm[Hg] [facility] Heart rate 2022-03-14 00:39:00 71 /min [facility] Respiratory rate 2022-03-14 00:39:00 21 /min [facility] Oxygen saturation in Arterial blood by Pulse oximetry 2022-03-14 00:39:00 97 /min [facility] Body temperature 2022-03-13 20:20:00 37 Laura [facility] Body height 2022-03-13 20:20:00 165.1 cm [facility] Body weight 2022-03-13 20:20:00 58.968 kg [facility] BMI 2022-03-13 20:20:00 21.63 kg/m2 [facility] Systolic blood pressure 2022-01-22 02:49:00 115 mm[Hg] [facility] Diastolic blood pressure 2022-01-22 02:49:00 77 mm[Hg] [facility] Heart rate 2022-01-22 02:49:00 74 /min [facility] Respiratory rate 2022-01-22 02:49:00 16 /min [facility] Oxygen saturation in Arterial blood by Pulse oximetry 2022-01-22 02:49:00 99 /min [facility] Body temperature 2022-01-22 00:43:00 36.39 Laura [facility] Body weight 2022-01-22 00:43:00 58.968 kg [facility] BMI 2022-01-22 00:43:00 25.39 kg/m2 [facility] Systolic blood pressure 2021-11-01 20:30:00 117 mm[Hg] [facility] Diastolic blood pressure 2021-11-01 20:30:00 66 mm[Hg] [place] [facility] Heart rate 2021-11-01 20:30:00 62 /[facility] temperature 2021-11-01 20:30:00 36.33 Laura [facility] Respiratory rate 2021-11-01 20:30:00 16 /min [facility] Body height 2021-11-01 20:30:00 152.4 cm [facility] Body weight 2021-11-01 20:30:00 58.514 kg [facility] BMI 2021-11-01 20:30:00 25.19 kg/m2 [facility] height 2020-05-06 11:20:00 60 [in_i] Commo n [facility] weight 2020-05-06 11:20:00 120 [lb_av] Comm on [facility] temperature 2020-05-06 11:20:00 98.5 [degF] Com mon [facility] bmi 2020-05-06 11:20:00 23.43 kg/m2 Comm on [facility] blood pressure systolic 2020-05-06 11:20:00 125 mm[Hg] Common [facility] blood pressure diastolic 2020-05-06 11:20:00 78 mm[Hg] Common [facility] BP Systolic 2024-05-01 15:19:00 110 mm[Hg] Step david Harrison BP Diastolic 2024-05-01 15:19:00 84 mm[Hg] Abad Harrison Weight Measured 2024-05-01 15:19:00 115.00 pounds Torsten Harrison Height Measured 2024-05-01 15:19:00 59.70 inches Torsten Harrison Body Temperature 2024-05-01 15:19:00 98.70 degrees Torstendavid Harrison Heart Rate 2024-05-01 15:19:00 71.00 /min Tata en F Hunter Respiratory Rate 2024-05-01 15:19:00 18.00 /min Torsten F Hunter Heart Rate 2023-11-13 17:45:00 74.00 /min Tata en F Hunter Respiratory Rate 2023-11-13 17:45:00 Torsten Taz Harrison BP Systolic 2023-11-13 17:45:00 106 mm[Hg] Step hen F Hunter BP Diastolic 2023-11-13 17:45:00 64 mm[Hg] Abad phen Taz Harrison Weight Measured 2023-11-13 17:45:00 126.00 pounds Torsten Harrison Height Measured 2023-11-13 17:45:00 59.70 inches Torsten Harrison Body Temperature 2023-11-13 17:45:00 97.90 degrees Torsten Harrison BP Systolic 2023-10-18 15:45:00 100 mm[Hg] Step hen F Hunter BP Diastolic 2023-10-18 15:45:00 63 mm[Hg] Abad phen Taz Harrison Weight Measured 2023-10-18 15:45:00 128.00 pounds Torsten Harrison Height Measured 2023-10-18 15:45:00 59.70 inches Torsten Harrison Body Temperature 2023-10-18 15:45:00 98.40 degrees Torsten Harrison Heart Rate 2023-10-18 15:45:00 74.00 /min Tata en F Hunter Respiratory Rate 2023-10-18 15:45:00 17.00 /min Torsten Harrison Procedures Procedure Date / Time Performed Performing Clinician Source POCT URINALYSIS 2023-09-18 18:36:00 Isabell Antonio [facility] CT ABDOMEN PELVIS W CONTRAST 2023-08-05 22:17:16 Alesia Lechuga [facility] COMP. METABOLIC PANEL (77098) 2023-08-05 20:54:00 Alesia Lechuga [facility] CBC WITH DIFF 2023-08-05 20:54:00 Alesia Lechuga [facility] URINALYSIS 2023-08-05 20:14:00 Alesia Lechuga [facility] CONSENT/REFUSAL FOR DIAGNOSIS AND TREATMENT 2023-08-05 20:02:14 Doctor Unassigned, [facility] [place] [facility] URINALYSIS 2023-05-25 01:18:00 Richardson Leon [facility] RAPID INFLUENZA A/B 2023-05-25 01:18:00 Paula Leon [facility] COVID-19 (ID NOW RAPID TESTING) 2023-05-25 01:18:00 Richardson Leon [facility] CONSENT/REFUSAL FOR DIAGNOSIS AND TREATMENT 2023-05-25 00:58:09 Doctor Unassigned, [facility] [place] [facility] CT ABDOMEN PELVIS W CONTRAST 2023-05-12 04:27:58 Shannan [facility] AC PANEL 21 + LACTIC ACID 2023-05-12 01:50:00 Shannan [facility] LIPASE 2023-05-12 01:43:00 Jose Guadalupe Campbell [facility] HEPATIC FUNCTION PANEL ([id number]) (ALB,T.PRO,BILI T,BU/BC,ALT,AST,ALK PHOS) 2023-05-12 01:43:00 Shannan [facility] BASIC METABOLIC PANEL (NA, K, CL, CO2, GLUCOSE, BUN, CREATININE, CA) 2023-05-12 01:43:00 Shannan [facility] CBC WITH DIFF 2023-05-12 01:43:00 Shannan [facility] URINALYSIS 2023-05-12 01:43:00 Jose Guadalupe Campbell [facility] NOTICE OF PRIVACY PRACTICES 2023-05-12 00:47:32 Doctor Unassigned, [facility] [place] [facility] CONSENT/REFUSAL FOR DIAGNOSIS AND TREATMENT 2023-05-12 00:47:02 Doctor Unassigned, [facility] [place] [facility] CT HEAD WO CONTRAST 2023-03-06 21:50:00 Brenna Romero [facility] ASSIGNMENT OF BENEFITS 2023-03-06 21:20:15 Docto r Unassigned, [facility] [place] [facility] CONSENT/REFUSAL FOR DIAGNOSIS AND TREATMENT 2023-03-06 19:45:09 Doctor Unassigned, [facility] [place] [facility] CT ABDOMEN PELVIS W CONTRAST 2023-02-03 18:23:00 Maria Victoria García [facility] LIPASE 2023-02-03 18:02:00 [facility] COMP. METABOLIC PANEL (08033) 2023-02-03 18:02:00 Maria Victoria García [facility] CBC WITH DIFF 2023-02-03 18:02:00 Maria [facility] 2023-02-03 18:02:00 Maria [facility] CONSENT/REFUSAL FOR DIAGNOSIS AND TREATMENT 2023-02-03 17:46:56 Doctor Unassigned, [facility] [place] [facility] RAPID STREP SCREEN FOR GROUP A 2022-10-17 23:55:00 Maggie Barrera [facility] RAPID INFLUENZA A/B 2022-10-17 23:55:00 Maggie Barrera e [facility] COVID-19 (ID NOW RAPID TESTING) 2022-10-17 23:55:00 Maggie Barrera [facility] URINALYSIS 2022-10-17 22:49:00 Stephanie Tran [facility] CONSENT/REFUSAL FOR DIAGNOSIS AND TREATMENT 2022-10-17 22:26:18 Doctor Unassigned, [facility] [place] [facility] ED SPLINT APPLICATION 2022-08-06 07:55:17 Rosa Lechuga [facility] CONSENT/REFUSAL FOR DIAGNOSIS AND TREATMENT 2022-08-06 06:39:48 Doctor Unassigned, [facility] [place] [facility] COMP. METABOLIC PANEL ([id number]) 2022-07-20 06:32:00 Mehreen Sethi [facility] CBC WITH DIFF 2022-07-20 06:32:00 Mehreen Sethi [facility] URINALYSIS 2022-07-20 06:32:00 Mehreen Sethi [facility] RAPID INFLUENZA A/B 2022-07-20 06:32:00 Mehreen Sethi [facility] COVID-19 (ID NOW RAPID TESTING) 2022-07-20 06:32:00 Mehreen Sethi [facility] CONSENT/REFUSAL FOR DIAGNOSIS AND TREATMENT 2022-07-20 05:24:16 Doctor Unassigned, [facility] [place] [facility] URINALYSIS 2022-05-23 17:09:00 Richardson Leon [facility] CONSENT/REFUSAL FOR DIAGNOSIS AND TREATMENT 2022-05-23 16:02:43 Doctor Unassigned, [facility] [place] [facility] CT ABDOMEN PELVIS W CONTRAST 2022-03-13 22:32:00 Arianne Shay [facility] LIPASE 2022-03-13 21:32:00 Arianne Shay [facility] HEPATIC FUNCTION PANEL ([id number]) (ALB,T.PRO,BILI T,BU/BC,ALT,AST,ALK PHOS) 2022-03-13 21:32:00 Arianne Shay [facility] BASIC METABOLIC PANEL (NA, K, CL, CO2, GLUCOSE, BUN, CREATININE, CA) 2022-03-13 21:32:00 Arianne Shay [facility] CBC WITH DIFF 2022-03-13 21:32:00 [facility] 2022-03-13 20:25:00 Richardson Leon [facility] CONSENT/REFUSAL FOR DIAGNOSIS AND TREATMENT 2022-03-13 19:50:11 Doctor Unassigned, [facility] [place] [facility] CT ABDOMEN PELVIS W CONTRAST 2022-01-22 01:34:54 AufdBrenna crain [facility] LIPASE 2022-01-22 01:17:00 Brenna Samuel [facility] COMP. METABOLIC PANEL ([id number]) 2022-01-22 01:17:00 Brenna Samuel [facility] CBC WITH DIFF 2022-01-22 01:17:00 Brenna Samuel [facility] URINALYSIS 2022-01-22 00:50:00 Brenna Samuel [facility] NOTICE OF PRIVACY PRACTICES 2022-01-22 00:38:08 Doctor Unassigned, [facility] [place] [facility] CONSENT/REFUSAL FOR DIAGNOSIS AND TREATMENT 2022-01-22 00:36:29 Doctor Unassigned, [facility] [place] [facility] PAP SMEAR-LIQUID BASED-CP 2021-11-01 21:11:00 Ronit Santiago [facility] Encounters Start Date/Time End Date/Time Encounter Type Admission Type Attending [facility] Care Department Encounter ID Source 2021-06-15 12:14:07 Outpatient See, [facility] [id number] [facility] 2021-06-15 11:33:20 Outpatient See, [facility] [id number] [facility] 2021-06-15 11:29:10 Outpatient See, [facility] [id number] [facility] 2021-06-15 11:27:31 Outpatient See, [facility] [id number] [facility] 2021-06-15 11:27:13 Outpatient See, [facility] [id number] [facility] 2021-06-15 11:12:57 Outpatient See, [facility] [id number] [facility] 2021-03-22 08:37:29 Emergency [facility] [id number] [facility] 2021-03-21 10:37:33 Emergency [facility] [id number] [facility] 2021-03-20 21:58:58 Emergency [facility] [id number] [facility] 2021-03-20 11:47:40 Emergency [facility] [id number] [facility] 2021-03-20 05:05:20 Emergency [facility] [id number] [facility] 2021-03-19 21:53:05 Emergency [facility] [id number] [facility] 2021-03-19 11:06:33 Emergency [facility] [id number] [facility] 2021-03-18 20:23:30 Emergency [facility] [id number] [facility] 2021-03-18 03:19:07 Emergency [facility] [id number] [facility] 2021-03-17 13:12:53 Emergency [facility] [id number] [facility] 2024-05-01 15:17:21 2024-05-01 15:17:21 Outpatient [facility] [id number] Torsten Harrison 2024-05-01 00:00:00 2024-05-01 00:00:00 Outpatient Visit [facility] [id number] Torsten Harrison 2024-04-09 09:45:00 2024-04-09 09:45:00 Outpatient R ROMINA GILES [facility] [id number] [facility] 2023-12-10 18:02:00 2023-12-10 18:42:00 Emergency MT BATISTA ERICCA [facility] ERT [id number] [facility] 2023-12-10 18:02:00 2023-12-10 18:42:00 Emergency Mt Rivera [facility] 1.2.840.114 350.1.13.10 4.2.7.2.686 [id number] [facility] 2023-11-13 17:43:02 2023-11-13 17:43:02 Outpatient [facility] [id number] Torsten Taz Hunter 2023-11-13 00:00:00 2023-11-13 00:00:00 Outpatient Visit [facility] [id number] Torsten Harrison 2023-10-18 15:40:52 2023-10-18 15:40:52 Outpatient [facility] [id number] Torsten Harrison 2023-10-18 00:00:00 2023-10-18 00:00:00 Outpatient Visit [facility] [id number] Torsten Harrison 2023-09-28 22:49:00 2023-09-28 23:06:00 Emergency X STEPHANIE TRAN [facility] ERT [id number] [facility] 2023-09-28 22:49:00 2023-09-28 23:06:00 Emergency Stephanie Tran [facility] 1..840.114 350.1.13.10 4.2.7.2.686 [id number] [facility] 2023-09-18 13:15:00 2023-09-18 14:05:19 Outpatient R ISABELL ANTONIO [facility] [id number] [facility] 2023-09-18 13:15:00 2023-09-18 14:05:19 Office Visit Isabell Antonio [facility] M[employer] TEND[employer] W[facility] 1.2.840.114 350.1.13.10 4.2.7.2.686 [id number] [facility] 2023-08-05 15:10:00 2023-08-05 20:05:00 Emergency X ALESIA LECHUGA [facility] ERT [id number] [facility] 2023-08-05 15:10:00 2023-08-05 20:05:00 Emergency Alesia Lechuga [facility] 1..840.114 350.1.13.10 4.2.7.2.686 [id number] [facility] 2023-05-24 19:16:00 2023-05-24 20:50:00 Emergency X RICHARDSON LEON [facility] ERT [id number] [facility] 2023-05-24 19:16:00 2023-05-24 20:50:00 Emergency Richardson Leon [facility] 1.2.840.114 350.1.13.10 4.2.7.2.686 [id number] [facility] 2023-05-11 18:59:00 2023-05-12 00:02:00 Emergency X LACI Bejarano [facility] ERT [id number] [facility] 2023-05-11 18:59:00 2023-05-12 00:02:00 Emergency Laci bejarano [facility] 1.2.840.114 350.1.13.10 4.2.7.2.686 [id number] [facility] 2023-05-11 00:00:00 2023-05-11 00:00:00 Orders Only Doctor Unassigned, [facility] [place] [facility] 1.2.840.114 350.1.13.10 4.2.7.2.686 [id number] [facility] 2023-03-20 00:00:00 2023-03-20 00:00:00 Outpatient GC_GCBZW_Ka diyala_S PRIV PRIV [id number] [facility] 2023-03-06 14:57:00 2023-03-06 21:46:00 Emergency X BRENNA SAMUEL [facility] ERT [id number] [facility] 2023-03-06 14:57:00 2023-03-06 21:46:00 Emergency Brenna Samuel [facility] 1.2.840.114 350.1.13.10 4.2.7.2.686 [id number] [facility] 2023-02-03 12:53:00 2023-02-03 14:49:00 Emergency X MARIA VICTORIA GARCÍA [facility] ERT [id number] [facility] 2023-02-03 12:53:00 2023-02-03 14:49:00 Emergency Maria Victoria García [facility] 1..840.114 350.1.13.10 4.2.7.2.686 [id number] [facility] 2022-10-17 17:35:00 2022-10-17 21:37:00 Emergency X Maggie BARRERA [facility] ERT [id number] [facility] 2022-10-17 17:35:00 2022-10-17 21:37:00 Emergency Maggie Barrera Doreen [facility] 1..840.114 350.1.13.10 4.2.7.2.686 [id number] [facility] 2022-10-10 09:10:00 2022-10-10 09:10:00 Outpatient HOANG KEYS [facility] [id number] [facility] 2022-08-24 00:00:00 2022-08-24 00:00:00 Patient Secure Msg Doctor Unassigned, [facility] [place] [facility] 1..840.114 350.1.13.10 4.2.7.2.686 [id number] [facility] 2022-08-06 01:52:00 2022-08-06 03:25:00 Emergency X ALEXANDREA ALESIA [facility] ERT [id number] [facility] 2022-08-06 01:52:00 2022-08-06 03:25:00 Emergency Alexandrea Alesia G [facility] 1..840.114 350.1.13.10 4.2.7.2.686 [id number] [facility] 2022-07-19 23:34:00 2022-07-20 02:20:00 Emergency X MEHREEN SETHI [facility] ERT [id number] [facility] 2022-07-19 23:34:00 2022-07-20 02:20:00 Emergency Mehreen Sethi [facility] 1.2.840.114 350.1.13.10 4.2.7.2.686 [id number] [facility] 2022-05-23 10:17:00 2022-05-23 12:52:00 Emergency RICHARDSON CASTILLO [facility] ERT [id number] [facility] 2022-05-23 10:17:00 2022-05-23 12:52:00 Emergency Richardson Leon [facility] 1.2.840.114 350.1.13.10 4.2.7.2.686 [id number] [facility] 2022-05-23 00:00:00 2022-05-23 00:00:00 Orders Only Doctor Unassigned, [facility] [place] [facility] 1.2.840.114 350.1.13.10 4.2.7.2.686 [id number] [facility] 2022-03-13 15:26:00 2022-03-13 19:56:00 Emergency X ARIANNE SHAY [facility] ERT [id number] [facility] 2022-03-13 15:26:00 2022-03-13 19:56:00 Emergency Arianne Shay [facility] 1.2.840.114 350.1.13.10 4.2.7.2.686 [id number] [facility] 2022-01-30 07:12:34 2022-01-30 23:59:00 Outpatient RONIT URIBE [facility] [id number] [facility] 2022-01-30 07:12:34 2022-01-30 23:59:00 Hospital Encounter Ronit Santiago [facility] 1.2840.114 350.1.13.10 4.2.7.2.686 [id number] [facility] 2022-01-21 19:52:00 2022-01-21 21:51:00 Emergency X BRENNA SAMUEL [facility] ERT [id number] [facility] 2022-01-21 19:52:00 2022-01-21 21:51:00 Emergency Brenna Samuel [facility] 1.2840.114 350.1.13.10 4.2.7.2.686 [id number] [facility] 2021-11-01 14:30:00 2021-11-01 16:08:12 Office Visit Ronit Santiago [facility] [employer] [facility] 1.840.114 350.1.13.10 4.2.7.2.686 [id number] [facility] 2021-11-01 14:30:00 2021-11-01 16:08:12 Outpatient R RONIT SANTIAGO [facility] [id number] [facility] 2021-11-01 09:30:00 2021-11-01 09:30:00 Outpatient R ISABELL ANTONIO [facility] [id number] [facility] 2021-10-26 19:30:00 2021-10-26 23:49:00 Emergency X DAYANNA HANNON [facility] ERT [id number] [facility] 2021-10-26 19:30:00 2021-10-26 23:49:00 Emergency Dayanna Hannon S [facility] 1.2.840.114 350.1.13.10 4.2.7.2.686 [id number] [facility] 2021-05-16 00:00:00 2021-05-16 00:00:00 Patient Secure Msg Doctor Unassigned, [facility] [place] [facility] 1.2840.114 350.1.13.10 4.2.7.2.686 [id number] [facility] 2021-05-15 02:02:00 2021-05-15 13:30:00 Emergency X DELL NOBLE [facility] ERT [id number] [facility] 2021-05-15 02:02:00 2021-05-15 13:30:00 Emergency Dell Noble [facility] 1.2840.114 350.1.13.10 4.2.7.2.686 [id number] [facility] 2021-05-12 01:32:00 2021-05-12 03:32:00 Emergency X DELL NOBLE [facility] ERT [id number] [facility] 2021-05-12 01:32:00 2021-05-12 03:32:00 Emergency Dell Noble [facility] 1.2840.114 350.1.13.10 4.2.7.2.686 [id number] [facility] 2021-05-12 00:00:00 2021-05-12 00:00:00 Orders Only Doctor Unassigned, [facility] [place] [facility] 1.2840.114 350.1.13.10 4.2.7.2.686 [id number] [facility] 2021-04-26 16:40:00 2021-04-26 18:47:00 Emergency X DANIEL JACOBSON [facility] ERT [id number] [facility] 2021-04-26 16:40:00 2021-04-26 18:47:00 [facility] 1.2840.114 350.1.13.10 4.2.7.2.686 [id number] [facility] 2021-03-10 12:55:00 2021-03-12 18:40:00 Emergency Jennifer Manzano [facility] ([facility] 1.2840.114 350.1.13.10 4.2.7.2.686 [id number] [facility] 2020-12-20 00:00:00 2020-12-20 00:00:00 Outpatient [facility] [id number] [facility] 2020-12-12 21:14:00 2020-12-13 01:55:00 Emergency Maggie Barrera [facility] 1.20.114 350.1.13.10 4.2.7.2.686 [id number] [facility] 2020-10-15 11:58:00 2020-10-15 15:51:00 Emergency X RICHARDSON LEON [facility] ERT [id number] [facility] 2020-10-15 11:58:00 2020-10-15 15:51:00 Emergency Richardson Leon [facility] 1.20.114 350.1.13.10 4.2.7.2.686 [id number] [facility] 2020-09-01 13:00:00 2020-09-01 13:00:00 Outpatient R [facility] [id number] [facility] 2020-08-27 09:15:00 2020-08-27 13:06:00 Emergency Dell Noble [facility] 1.2840.114 350.1.13.10 4.2.7.2.686 [id number] [facility] 2020-08-27 00:00:00 2020-08-27 00:00:00 Orders Only Doctor Unassigned, [facility] [place] [facility] 1.2840.114 350.1.13.10 4.2.7.2.686 [id number] [facility] 2020-07-30 00:00:00 2020-07-30 00:00:00 Telephone Glenis Becerra [facility] 1.2.840.114 350.1.13.10 4.2.7.2.686 [id number] [facility] 2020-07-28 20:54:00 2020-07-29 00:37:00 Emergency Maggie Barrera [facility] 1.2.840.114 350.1.13.10 4.2.7.2.686 [id number] [facility] 2020-07-29 00:00:00 2020-07-29 00:00:00 Patient Secure Msg Doctor Unassigned, [facility] [place] [facility] 1.2.840.114 350.1.13.10 4.2.7.2.686 [id number] [facility] 2020-06-24 14:22:00 2020-06-24 16:17:00 Emergency Jossie Mehreen Darryl [facility] 1.2.840.114 350.1.13.10 4.2.7.2.686 [id number] [facility] 2020-06-24 00:00:00 2020-06-24 00:00:00 Orders Only Doctor Unassigned, [place] [facility] [id number] 350.1.13.10 4.2.7.2.686 [id number] [facility] 2020-06-23 00:00:00 2020-06-23 00:00:00 (TEL) STLMLC STLMLC [id number] [facility] 2020-05-25 00:00:00 2020-05-25 00:00:00 Outpatient CLIVE DOTY [facility] [id number] [facility] 2020-05-06 00:00:00 2020-05-06 00:00:00 OFFICE VISIT ESTAB PT LEVEL 2 STLMLC STLC [id number] [facility] 2020-05-05 00:00:00 2020-05-05 00:00:00 (TEL) [facility] [id number] [facility] 2020-05-03 12:03:00 2020-05-03 16:07:00 Emergency Atif Shearer [facility] ([facility]) 1.2.840.114 350.1.13.10 4.2.7.2.686 [id number] [facility] 2020-04-05 00:00:00 2020-04-05 00:00:00 Telephone Clive Tran [facility] [employer]NAL & CHILD [facility] [id number] 350.1.13.10 4.2.7.2.686 [id number] [facility] 2020-04-01 14:01:09 2020-04-01 15:15:07 Office Visit Clive Tran [facility] [employer] W[facility] & CHILD [facility] 1.2.840.114 350.1.13.10 4.2.7.2.686 [id number] [facility] 2020-04-01 13:30:00 2020-04-01 13:30:00 Outpatient R CLIVE TRAN [facility] [id number] [facility] [facility] 2020-04-01 00:00:00 2020-04-01 00:00:00 Orders Only Doctor Unassigned, [place] [facility] 1.2.840.114 350.1.13.10 4.2.7.2.686 [id number] [id number] [facility] 2020-02-20 00:00:00 2020-02-20 00:00:00 Letter (Out) Delia Perkins [facility] 1.2840.114 350.1.13.10 4.2.7.2.686 [id number] [id number] [facility] 2020-02-18 20:02:00 2020-02-18 21:40:00 Emergency Maggie Barrera [facility] 1.2.840.114 350.1.13.10 4.2.7.2.686 [id number] [facility] 2020-02-18 00:00:00 2020-02-18 00:00:00 Orders Only Doctor Unassigned, [place] [facility] 1.2.840.114 350.1.13.10 4.2.7.2.686 [id number] [facility] 2019-11-18 15:13:00 2019-11-18 15:13:00 [facility] [id number] [facility] 2019-11-18 00:00:00 2019-11-18 00:00:00 Telephone Tessa Matos [facility] 1.2.840.114 350.1.13.10 4.2.7.2.686 [id number] [facility] 2019-11-16 19:58:07 2019-11-16 22:05:00 Emergency Richardson Leon [facility] 1.2.840.114 350.1.13.10 4.2.7.2.686 [id number] [id number] [facility] 2019-11-14 14:20:00 2019-11-14 14:20:00 [facility] [id number] [facility] 2019-11-14 11:44:00 2019-11-14 11:44:00 [facility] [id number] [facility] 2019-07-29 11:15:00 2019-07-29 11:15:00 [facility] [id number] [facility] 2019-07-29 08:43:00 2019-07-29 08:43:00 [facility] [address] [facility] [place] [facility] Medicine [id number] [facility] 2019-07-27 22:56:42 2019-07-28 01:19:00 Emergency Isaac Reynolds [facility] 1.2.840.114 350.1.13.10 4.2.7.2.686 [id number] [facility] 2019-03-20 15:45:00 2019-03-20 15:45:00 [facility] [address] [facility] [place] [facility] Medicine [id number] [facility] 2018-09-26 11:15:00 2018-09-26 11:15:00 [facility] [place] [facility] [id number] [facility] 2018-09-03 15:39:00 2018-09-03 15:39:00 [facility] [place] [facility] [id number] [facility] 2018-09-03 12:09:00 2018-09-03 12:09:00 [facility] [place] [facility] [id number] [facility] 2018-09-03 09:49:00 2018-09-03 09:49:00 [facility] [place] [facility] [id number] [facility] 2018 16:01:00 2018 16:01:00 [facility] [place] [facility] [id number] [facility] 2018-08-21 15:30:00 2018-08-21 15:30:00 [facility] [place] [facility] [id number] [facility] 2018-08-21 11:30:00 2018-08-21 11:30:00 [facility] [address] [facility] [place] [facility] [id number] [facility] 2018-07-24 08:46:00 2018-07-24 08:46:00 [facility] [id number] [facility] 2018-07-17 13:15:00 2018-07-17 13:15:00 [facility]patient [facility] [id number] [facility] 2018-07-15 11:15:00 2018-07-15 11:15:00 Outpatient [facility] [id number] [facility] 2018-06-19 08:15:00 2018-06-19 08:15:00 Outpatient [facility] [id number] [facility] 2018-04-30 13:30:00 2018-04-30 13:30:00 Outpatient [facility] [id number] [facility] Results Test Description Test Time Test Comments Results Result Co mments Source [facility] Urinalysis W Specific [id number] 18:37:00* Test Item Value Reference Range Interpretation Comme nts POCT U SP GRAV (test code = 3255) . 1.005-1.025 POCT PH U (test code = 3254) 6 mg/dl 5-8 POCT U LEUK EST (test code = 3263) neg Negative - Negative POCT U NIT (test code = 3262) neg Negative - Negati ve POCT U PROT (test code = 3259) trace Negative - Negat andrew POCT U GLU (test code = 3256) neg Negative - Negati ve POCT U KETONE (test code = 3258) neg Negative - Neg ative POCT U UROBILI (test code = 3260) . 0.2-1 POCT U BILI (test code = 3261) . Negative - Negat andrew POCT U BLD (test code = 3257) neg Negative - Negati ve POCT U COLOR (test code = 3266) POCT U APPEAR (test code = 3267) [facility] [id number] 23:19:49CT ABDOMEN PELVIS W CONTRAST Indication: LLQ abdominal pain ? Comparison: May 11, 2023 RL: ? ?HS: Y Ordering Clinician: ALESIA LECHUGA Technique: Axial CT images of the abdomen and pelviswere performed with ivcontrast. Sagittal and coronal reformats were created. Dose reductiontechnique s were used (ALARA). Technical Quality: Adequate Discussion:Lines/Devices: None. Chest/Vessels: No acute abnormalities within the lung bases. ?The aorta isacutely normal. Organs: No acute liver pathology. ?No gallbladder abnormalities. ?Theportal vein is patent. ?The pancreas is normal. ?No splenic masses. ?Theadrenal glands are normal. : No hydronephrosis. No renal stones. The ureters are normal. ?Thebladder is normal. GI: Moderate increased stool content. ?No small bowel obstruction. ?Normalappendix. Misc.: Subcentimeter lymph nodes are below size criteria. ?No free air orfree fluid. Skeleton: No acute osseous pathology. 11 mm sclerotic density within theleft iliac bone most likely a bone islandUnTexas [facility]P. METABOLIC PANEL ([id number])2023-08-05 21:50:58* Test Item Value Reference Range Interpretation Comme nts NA (test code = 7131171581) 138 mmol/L 135-145 K (test code = 0824200114) 3.7 mmol/L 3.5-5.0 CL (test code = 4067384340) 107 mmol/L 98-108 CO2 TOTAL (test code = 9788762175) 25 mmol/L 23-31 AGAP (test code = 4954019652) 6 2-16 BUN (test code = 8619189118) 14 mg/dL 7-23 GLUCOSE (test code = 0163618050) 162 mg/dL 70-110 H CREATININE (test code = 2160-0) 0.49 mg/dL 0.50-1.04 L TOTAL BILI (test code = 9686638110) 0.4 mg/dL 0.1-1.1 CALCIUM (test code = 5624283177) 8.8 mg/dL 8.6-10.6 T PROTEIN (test code = 1404630890) 7.0 g/dL 6.3-8.2 ALBUMIN (test code = 5660086430) 4.0 g/dL 3.5-5.0 ALK PHOS (test code = 9441343706) 80 U/L 34-122 ALTv (test code = 1742-6) 14 U/L 5-35 AST(SGOT) (test code = 8347679535) 24 U/L 13-40 eGFR (test code = 07656-2) 114.3 mL/min/1.73m2 CKD-EPI eGFR (2020). Assuming creatinine has been stable day-to-day for at least three months, the eGFR indicates Category G1 (>= 90 mL/min/1.73 m2) Lab Interpretation (test code = 04646-7) Abnormal [facility] WITH [id number] 21:44:15* Test Item Value Reference Range Interpretation Comme nts WBC (test code = 6690-2) 9.96 4.30-11.10 RBC (test code = 789-8) 3.92 3.93-5.25 L HGB (test code = 718-7) 12.2 g/dL 11.6-15.0 HCT (test code = 4544-3) 36.3 % 35.7-45.2 MCV (test code = 787-2) 92.6 fL 80.6-95.5 MCH (test code = 785-6) 31.1 pg 25.9-32.8 MCHC (test code = 786-4) 33.6 g/dL 31.6-35.1 RDW-SD (test code = 61359-0) 44.0 fL 39.0-49.9 RDW-CV (test code = 788-0) 13.0 % 12.0-15.5 PLT (test code = 777-3) 337 166-358 MPV (test code = 09237-6) 9.3 fL 9.5-12.9 L NRBC/100 WBC (test code = 1411061554) 0.0 0.0-10.0 NRBC x10^3 (test code = 4194233919) See_Comment [Automated messa ge] The system which generated this result transmitted reference range: 10*3/?L. The reference range was not used to interpret this result as normal/abnormal. GRAN MAT (NEUT) % (test code = 770-8) 53.6 % IMM GRAN % (test code = 5490598759) 0.40 % LYMPH % (test code = 736-9) 39.1 % MONO % (test code = 5905-5) 4.2 % EOS % (test code = 713-8) 2.5 % BASO % (test code = 706-2) 0.2 % GRAN MAT x10^3(ANC) (test code = 0942582537) 5.34 10*3/uL 1.88-7.09 IMM GRAN x10^3 (test code = 2666470295) 0.04 10*3/uL 0.00-0.06 LYMPH x10^3 (test code = 731-0) 3.89 10*3/uL 1.32-3.29 H MONO x10^3 (test code = 742-7) 0.42 10*3/uL 0.33-0.92 EOS x10^3 (test code = 711-2) 0.25 10*3/uL 0.03-0.39 BASO x10^3 (test code = 704-7) 0.01-0.07 Lab Interpretation (test code = 62446-8) Abnormal [facility] W [id number] 04:47:59Provider: JOSE GUADALUPE CAMPBELL EXAM: CT ABDOMEN PELVIS W CONTRAST CLINICAL HISTORY: Abdominal pain, acute, nonlocalized COMPARISON: None TECHNIQUE: CT abdomen and pelvis with ?intravenous contrast. Coronal andsagittal reformats were also obtained. CT was performed according to ALARA(As Low As Reasonably Achievable) radiation safety principle. FINDINGS: Lower chest: Dependent atelectasis and groundglass attenuation.. Liver: Tiny low-density structure at the inferior aspect of the righthepatic lobeis too small to further characterize..Gallbladder/Bile ducts: Within normal limits. No bile duct dil atation.Pancreas: Within normal limits.Spleen: Within normal limits.Adrenals: Within normal limits.Kidneys: Symmetric enhancement. No hydronephrosis.Ureters: Within normal limits.Bladder: Within normal limits.Reproductive: Hysterectomy. Bowel: No evidence of obstruction. ?The appendix is normal inthe rightlower quadrant.Peritoneum: Negative for loculated collection or free fluid. ?Nopneumoperitoneum.Extraperitoneum: Scattered nonenlarged lymph nodes.Vascular: Normal contour. No aneurysm. Moderate aortobiiliacatherosclerotic calcifications. Abdominal wall: Within normal limits.Bones: No acute bony abnormality.[facility] WITH [id number] 03:09:59* Test Item Value Reference Range Interpretation Comme nts WBC (test code = 6690-2) 10.42 See_Comment [Automated messa ge] The system which generated this result transmitted reference range: 4.30 - 11.10 10*3/?L. The reference range was not used to interpret this result as normal/abnormal. RBC (test code = 789-8) 4.11 See_Comment [Automated messa ge] The system which generated this result transmitted reference range: 3.93 - 5.25 10*6/?L. The reference range was not used to interpret this result as normal/abnormal. HGB (test code = 718-7) 13.0 g/dL 11.6-15.0 HCT (test code = 4544-3) 37.6 % 35.7-45.2 MCV (test code = 787-2) 91.5 fL 80.6-95.5 MCH (test code = 785-6) 31.6 pg 25.9-32.8 MCHC (test code = 786-4) 34.6 g/dL 31.6-35.1 RDW-SD (test code = 65307-5) 42.8 fL 39.0-49.9 RDW-CV (test code = 788-0) 12.9 % 12.0-15.5 PLT (test code = 777-3) 345 See_Comment [Automated [employer]uel[employer] ge] The system which generated this result transmitted reference range: 166 - 358 10*3/?L. The reference range was not used to interpret this result as normal/abnormal. MPV (test code = 03453-9) 8.9 fL 9.5-12.9 L NRBC/100 WBC (test code = 2882055778) 0.0 See_Comment [Automated Bfly ssage] The system which generated this result transmitted reference range: 0.0 - 10.0 /100 WBCs. The reference range was not used to interpret this result as normal/abnormal. NRBC x10^3 (test code = 7364863220) See_Comment [Automated Blueliva ge] The system which generated this result transmitted reference range: 10*3/?L. The reference range was not used to interpret this result as normal/abnormal. GRAN MAT (NEUT) % (test code = 770-8) 45.5 % IMM GRAN % (test code = 8647838471) 0.20 % LYMPH % (test code = 736-9) 44.5 % MONO % (test code = 5905-5) 6.8 % EOS % (test code = 713-8) 2.9 % BASO % (test code = 706-2) 0.1 % GRAN MAT x10^3(ANC) (test code = 8852707672) 4.74 10*3/uL 1.88-7.09 IMM GRAN x10^3 (test code = 1826388781) 0.00-0.06 LYMPH x10^3 (test code = 731-0) 4.64 10*3/uL 1.32-3.29 H MONO x10^3 (test code = 742-7) 0.71 10*3/uL 0.33-0.92 EOS x10^3 (test code = 711-2) 0.30 10*3/uL 0.03-0.39 BASO x10^3 (test code = 704-7) 0.01-0.07 HYPERSEG NEUTS (test code = 765-8) Present See_Comment A [Automated [employer]] The system which generated this result transmitted reference range: (none). The reference range was not used to interpret this result as normal/abnormal. REACT LYMPHS (test code = 7494414008) Rare Lab Interpretation (test code = 61764-7) Abnormal [facility] METABOLIC PANEL (NA, K, CL, CO2, GLUCOSE, BUN, CREATININE, CA)2023-05-12 02:35:14* Test Item Value Reference Range Interpretation Comme nts NA (test code = 8122411663) 136 mmol/L 135-145 K (test code = 4406479032) 3.6 mmol/L 3.5-5.0 CL (test code = 6873050193) 103 mmol/L 98-108 CO2 TOTAL (test code = 3152962750) 26 mmol/L 23-31 AGAP (test code = 7370745994) 7 2-16 BUN (test code = 7859541288) 17 mg/dL 7-23 GLUCOSE (test code = 8504416616) 113 mg/dL 70-110 H CREATININE (test code = 9412716396) 0.65 mg/dL 0.50-1.04 CALCIUM (test code = 9478011931) 9.2 mg/dL 8.6-10.6 eGFR (test code = 19826-8) 106.7 mL/min/1.73m2 CKD-EPI eGFR (2020). Assuming creatinine has been stable day-to-day for at least three months, the eGFR indicates Category G1 (>= 90 mL/min/1.73 m2) Lab Interpretation (test code = 39456-4) [facility]normal [facility] (25206[facility] (ALB,T.PRO,BILI T,BU/BC,ALT,AST,ALK PHOS)2023-05-12 02:35:14* Test Item Value Reference Range Interpretation Comme nts TOTAL BILI (test code = 6155002671) 0.4 mg/dL 0.1-1.1 BILI UNCON (test code = 8295488451) 0.2 mg/dL 0.1-1.1 BILI CONJ (test code = 2131347757) 0.0 mg/dL 0.0-0.3 T PROTEIN (test code = 5214887309) 7.5 g/dL 6.3-8.2 ALBUMIN (test code = 1518677531) 4.5 g/dL 3.5-5.0 ALK PHOS (test code = 8857563410) 83 U/L 34-122 ALTv (test code = 1742-6) 17 U/L 5-35 AST(SGOT) (test code = 1448014822) 25 U/L 13-40 Lab Interpretation (test cod e = 20137-8) Normal [facility]2023-12-23 02:35:14* Test Item Value Reference Range Interpretation Comme nts LIPASE (test code = 1891282326) 151 U/L 0-220 Lab Interpretation (test cod e = 89295-7) Normal [facility]. METABOLIC PANEL (52106)2023-02-03 18:35:59* Test Item Value Reference Range Interpretation Comme nts NA (test code = 4631678220) 140 mmol/L 135-145 K (test code = 4000390131) 4.0 mmol/L 3.5-5.0 CL (test code = 9052985382) 108 mmol/L 98-108 CO2 TOTAL (test code = 6028209772) 24 mmol/L 23-31 AGAP (test code = 6658640820) 8 2-16 BUN (test code = 7821079702) 14 mg/dL 7-23 GLUCOSE (test code = 8397900834) 98 mg/dL 70-110 CREATININE (test code = 6047794613) 0.70 mg/dL 0.50-1.04 TOTAL BILI (test code = 0338788783) 0.2 mg/dL 0.1-1.1 CALCIUM (test code = 0386812941) 9.1 mg/dL 8.6-10.6 T PROTEIN (test code = 7212016495) 7.0 g/dL 6.3-8.2 ALBUMIN (test code = 6850264233) 4.3 g/dL 3.5-5.0 ALK PHOS (test code = 2679444238) 80 U/L 34-122 ALTv (test code = 1742-6) 14 U/L 5-35 AST(SGOT) (test code = 2039862629) 22 U/L 13-40 eGFR (test code = 2978130555) 88.2 mL/min/1.73m2 LAVONNE (test code = LAVONNE) [...] or urine or abnormalities in imaging tests). [facility]2023-09-16 18:35:39* Test Item Value Reference Range Interpretation Comme nts LIPASE (test code = 2074676015) 87 U/L 0-220 Lab Interpretation (test cod e = 23353-1) Normal [facility] WITH [id number] 18:24:40* Test Item Value Reference Range Interpretation Comme nts WBC (test code = 6690-2) 9.24 See_Comment [Automated [employer]] The system which generated this result transmitted reference range: 4.30 - 11.10 10*3/?L. The reference range was not used to interpret this result as normal/abnormal. RBC (test code = 789-8) 4.11 See_Comment [[employer]] The system which generated this result transmitted reference range: 3.93 - 5.25 10*6/?L. The reference range was not used to interpret this result as normal/abnormal. HGB (test code = 718-7) 12.9 g/dL 11.6-15.0 HCT (test code = 4544-3) 37.4 % 35.7-45.2 MCV (test code = 787-2) 91.0 fL 80.6-95.5 MCH (test code = 785-6) 31.4 pg 25.9-32.8 MCHC (test code = 786-4) 34.5 g/dL 31.6-35.1 RDW-SD (test code = 88286-1) 42.5 fL 39.0-49.9 RDW-CV (test code = 788-0) 12.8 % 12.0-15.5 PLT (test code = 777-3) 345 See_Comment [Automated messa ge] The system which generated this result transmitted reference range: 166 - 358 10*3/?L. The reference range was not used to interpret this result as normal/abnormal. MPV (test code = 96807-1) 9.1 fL 9.5-12.9 L NRBC/100 WBC (test code = 9176806026) 0.0 See_Comment [Automated Bfly ssage] The system which generated this result transmitted reference range: 0.0 - 10.0 /100 WBCs. The reference range was not used to interpret this result as normal/abnormal. NRBC x10^3 (test code = 6864299630) See_Comment [Automated messa ge] The system which generated this result transmitted reference range: 10*3/?L. The reference range was not used to interpret this result as normal/abnormal. GRAN MAT (NEUT) % (test code = 770-8) 51.4 % IMM GRAN % (test code = 8593182941) 0.20 % LYMPH % (test code = 736-9) 40.8 % MONO % (test code = 5905-5) 5.3 % EOS % (test code = 713-8) 2.2 % BASO % (test code = 706-2) 0.1 % GRAN MAT x10^3(ANC) (test code = 7520634445) 4.75 10*3/uL 1.88-7.09 IMM GRAN x10^3 (test code = 0424730917) 0.00-0.06 LYMPH x10^3 (test code = 731-0) 3.77 10*3/uL 1.32-3.29 H MONO x10^3 (test code = 742-7) 0.49 10*3/uL 0.33-0.92 EOS x10^3 (test code = 711-2) 0.20 10*3/uL 0.03-0.39 BASO x10^3 (test code = 704-7) 0.01-0.07 Lab Interpretation (test code = 49913-6) Abnormal [facility] WITH [id number] 07:21:41* Test Item Value Reference Range Interpretation Comme nts WBC (test code = 6690-2) 9.64 See_Comment [Automated messa ge] The system which generated this result transmitted reference range: 4.30 - 11.10 10*3/?L. The reference range was not used to interpret this result as normal/abnormal. RBC (test code = 789-8) 3.85 See_Comment L [Automated messa ge] The system which generated this result transmitted reference range: 3.93 - 5.25 10*6/?L. The reference range was not used to interpret this result as normal/abnormal. HGB (test code = 718-7) 12.2 g/dL 11.6-15.0 HCT (test code = 4544-3) 34.5 % 35.7-45.2 L MCV (test code = 787-2) 89.6 fL 80.6-95.5 MCH (test code = 785-6) 31.7 pg 25.9-32.8 MCHC (test code = 786-4) 35.4 g/dL 31.6-35.1 H RDW-SD (test code = 50275-3) 41.1 fL 39.0-49.9 RDW-CV (test code = 788-0) 12.6 % 12.0-15.5 PLT (test code = 777-3) 315 See_Comment [Automated messa ge] The system which generated this result transmitted reference range: 166 - 358 10*3/?L. The reference range was not used to interpret this result as normal/abnormal. MPV (test code = 89016-8) 8.7 fL 9.5-12.9 L NRBC/100 WBC (test code = 1573713113) 0.0 See_Comment [Automated me ssage] The system which generated this result transmitted reference range: 0.0 - 10.0 /100 WBCs. The reference range was not used to interpret this result as normal/abnormal. NRBC x10^3 (test code = 6469397883) See_Comment [Automated messa ge] The system which generated this result transmitted reference range: 10*3/?L. The reference range was not used to interpret this result as normal/abnormal. SEG % (test code = 06085-8) 45 % 33-76 LYMPH % (test code = 85408-9) 48 % 14-54 EOS % (test code = 46496-1) 7 % 0-3 H ANC (test code = 753-4) 4.43 10*3/uL 1.88-7.09 Lab Interpretation (test code = 69836-0) [facility]normal [facility] MET[facility]OLIC PANEL (85410)2022-07-20 07:05:10* Test Item Value Reference Range Interpretation Comme nts NA (test code = 8742506324) 139 mmol/L 135-145 K (test code = 5598739056) 4.0 mmol/L 3.5-5.0 Slight hemolysis CL (test code = 3386914797) 105 mmol/L 98-108 CO2 TOTAL (test code = 2449738446) 25 mmol/L 23-31 AGAP (test code = 2467493085) 9 2-16 BUN (test code = 0494346973) 19 mg/dL 7-23 Slight hemolysis GLUCOSE (test code = 2739821396) 96 mg/dL 70-110 CREATININE (test code = 4415092304) 0.59 mg/dL 0.50-1.04 TOTAL BILI (test code = 2744918505) 0.5 mg/dL 0.1-1.1 CALCIUM (test code = 0330879828) 9.2 mg/dL 8.6-10.6 T PROTEIN (test code = 9693078837) 6.9 g/dL 6.3-8.2 ALBUMIN (test code = 1369050477) 4.4 g/dL 3.5-5.0 ALK PHOS (test code = 6318043633) 53 U/L 34-122 Slight hemoly sis ALTv (test code = 1742-6) 15 U/L 5-35 AST(SGOT) (test code = 1103837084) 23 U/L 13-40 Slight hemoly sis eGFR (test code = 6159502737) 107.9 mL/min/1.73m2 LAVONNE (test code = LAVONNE) Association [...] or urine or abnormalities in imaging tests). [facility] (21153) (ALB,T.PRO,BILI T,BU/BC,ALT,AST,ALK PHOS)2022-03-13 22:31:03* Test Item Value Reference Range Interpretation Comme nts TOTAL BILI (test code = 0168103666) 0.4 mg/dL 0.1-1.1 BILI UNCON (test code = 9221921298) 0.1 mg/dL 0.1-1.1 BILI CONJ (test code = 7972074535) 0.0 mg/dL 0-0.3 T PROTEIN (test code = 4000182813) 7.0 g/dL 6.3-8.2 ALBUMIN (test code = 2422719365) 4.5 g/dL 3.5-5 ALK PHOS (test code = 4448504280) 60 U/L 34-122 ALTv (test code = 1742-6) 16 U/L 5-35 AST(SGOT) (test code = 1422977050) 25 U/L 13-40 Lab Interpretation (test cod e = 77657-2) Normal [facility] METABOLIC PANEL (NA, K, CL, CO2, GLUCOSE, BUN, CREATININE, CA)2022-03-13 22:30:43* Test Item Value Reference Range Interpretation Comme nts NA (test code = 5327792992) 139 mmol/L 135-145 K (test code = 0766889736) 4.0 mmol/L 3.5-5 CL (test code = 9278725660) 104 mmol/L 98-108 CO2 TOTAL (test code = 6463582124) 26 mmol/L 23-31 AGAP (test code = 2435135484) 2-16 BUN (test code = 5259037765) 14 mg/dL 7-23 GLUCOSE (test code = 7177656934) 93 mg/dL 70-110 CREATININE (test code = 9269621992) 0.88 mg/dL 0.5-1.04 CALCIUM (test code = 3243846239) 9.0 mg/dL 8.6-10.6 eGFR (test code = 9884113579) mL/min/1.73m2 LAVONNE (test code = LAVONNE) Association [...] or urine or abnormalities in imaging tests). [facility]2022-10-24 22:30:43* Test Item Value Reference Range Interpretation Comme nts LIPASE (test code = 3100733380) 200 U/L 0-220 Lab Interpretation (test cod e = 12434-6) Normal [facility] WITH [id number] 21:59:40* Test Item Value Reference Range Interpretation Comme nts WBC (test code = 6690-2) See_Comment H [Automated messa ge] The system which generated this result transmitted reference range: 4.30 - 11.10 10*3/?L. The reference range was not used to interpret this result as normal/abnormal. RBC (test code = 789-8) See_Comment L [Automated messa ge] The system which generated this result transmitted reference range: 3.93 - 5.25 10*6/?L. The reference range was not used to interpret this result as normal/abnormal. HGB (test code = 718-7) 12.1 g/dL 11.6-15 HCT (test code = 4544-3) 34.6 % 35.7-45.2 L MCV (test code = 787-2) 90.1 fL 80.6-95.5 MCH (test code = 785-6) 31.5 pg 25.9-32.8 MCHC (test code = 786-4) 35.0 g/dL 31.6-35.1 RDW-SD (test code = 13764-8) 42.3 fL 39-49.9 RDW-CV (test code = 788-0) 12.8 % 12-15.5 PLT (test code = 777-3) See_Comment [Automated messa ge] The system which generated this result transmitted reference range: 166 - 358 10*3/?L. The reference range was not used to interpret this result as normal/abnormal. MPV (test code = 91033-6) 8.9 fL 9.5-12.9 L NRBC/100 WBC (test code = [id number]) See_Comment [Automated me ssage] The system which generated this result transmitted reference range: 0.0 - 10.0 /100 WBCs. The reference range was not used to interpret this result as normal/abnormal. NRBC x10^3 (test code = [id number]) See_Comment [Automated messa ge] The system which generated this result transmitted reference range: 10*3/?L. The reference range was not used to interpret this result as normal/abnormal. GRAN MAT (NEUT) % (test code = 770-8) 60.3 % IMM GRAN % (test code = [id number]) 0.30 % LYMPH % (test code = 736-9) 29.6 % MONO % (test code = 5905-5) 6.6 % EOS % (test code = 713-8) 3.0 % BASO % (test code = 706-2) 0.2 % GRAN MAT x10^3(ANC) (test code = 2671931422) 7.16 10*3/uL 1.88-7.09 H IMM GRAN x10^3 (test code = 8621037115) 0.04 10*3/uL 0-0.06 LYMPH x10^3 (test code = 731-0) 3.51 10*3/uL 1.32-3.29 H MONO x10^3 (test code = 742-7) 0.78 10*3/uL 0.33-0.92 EOS x10^3 (test code = 711-2) 0.35 10*3/uL 0.03-0.39 BASO x10^3 (test code = 704-7) 0.01-0.07 Lab Interpretation (test code = 61621-3) [facility]* Test Item Value Reference Range Interpretation Comme nts LIPASE (test code = 1154347753) 618 U/L 0-220 H Lab Interpretation (test cod e = 00071-6) [facility]OLIC PANEL (13960)2022-01-22 01:55:34* Test Item Value Reference Range Interpretation Comme nts NA (test code = 2160389233) 140 mmol/L 135-145 K (test code = 1747739442) 4.4 mmol/L 3.5-5 CL (test code = 4548426364) 109 mmol/L 98-108 H CO2 TOTAL (test code = 4913755165) 25 mmol/L 23-31 AGAP (test code = 7012812417) 2-16 BUN (test code = 1894346297) 20 mg/dL 7-23 GLUCOSE (test code = 1544219415) 98 mg/dL 70-110 CREATININE (test code = 4870444997) 0.73 mg/dL 0.5-1.04 TOTAL BILI (test code = 4120070136) 0.2 mg/dL 0.1-1.1 CALCIUM (test code = 6950650281) 9.1 mg/dL 8.6-10.6 T PROTEIN (test code = 0755771381) 6.9 g/dL 6.3-8.2 ALBUMIN (test code = 4322227011) 4.6 g/dL 3.5-5 ALK PHOS (test code = 7718102602) 71 U/L 34-122 ALTv (test code = 1742-6) 16 U/L 5-35 AST(SGOT) (test code = 1911926809) 23 U/L 13-40 eGFR (test code = 1685937874) mL/min/1.73m2 LAVONNE (test code = LAVONNE) Association [...] or abnormalities in imaging tests). Lab Interpretation (test code = 50700-8) Abnormal [facility] WITH [id number] 01:48:36* Test Item Value Reference Range Interpretation Comme nts WBC (test code = 6690-2) See_Comment H [Automated [employer]] The system which generated this result transmitted reference range: 4.30 - 11.10 10*3/?L. The reference range was not used to interpret this result as normal/abnormal. RBC (test code = 789-8) See_Comment L [Automated [employer]] The system which generated this result transmitted reference range: 3.93 - 5.25 10*6/?L. The reference range was not used to interpret this result as normal/abnormal. HGB (test code = 718-7) 12.1 g/dL 11.6-15 HCT (test code = 4544-3) 34.3 % 35.7-45.2 L MCV (test code = 787-2) 89.6 fL 80.6-95.5 MCH (test code = 785-6) 31.6 pg 25.9-32.8 MCHC (test code = 786-4) 35.3 g/dL 31.6-35.1 H RDW-SD (test code = 94931-1) 43.0 fL 39-49.9 RDW-CV (test code = 788-0) 13.1 % 12-15.5 PLT (test code = 777-3) See_Comment [Automated [employer]] The system which generated this result transmitted reference range: 166 - 358 10*3/?L. The reference range was not used to interpret this result as normal/abnormal. MPV (test code = 39115-7) 10.1 fL 9.5-12.9 NRBC/100 WBC (test code = 1645615308) See_Comment [Automated me ssage] The system which generated this result transmitted reference range: 0.0 - 10.0 /100 WBCs. The reference range was not used to interpret this result as normal/abnormal. NRBC x10^3 (test code = 6705640132) See_Comment [Automated messa ge] The system which generated this result transmitted reference range: 10*3/?L. The reference range was not used to interpret this result as normal/abnormal. GRAN MAT (NEUT) % (test code = 770-8) 52.3 % IMM GRAN % (test code = 3227723065) 0.30 % LYMPH % (test code = 736-9) 39.4 % MONO % (test code = 5905-5) 5.5 % EOS % (test code = 713-8) 2.3 % BASO % (test code = 706-2) 0.2 % GRAN MAT x10^3(ANC) (test code = 2001718764) 6.05 10*3/uL 1.88-7.09 IMM GRAN x10^3 (test code = 4342903017) 0.03 10*3/uL 0-0.06 LYMPH x10^3 (test code = 731-0) 4.55 10*3/uL 1.32-3.29 H MONO x10^3 (test code = 742-7) 0.63 10*3/uL 0.33-0.92 EOS x10^3 (test code = 711-2) 0.27 10*3/uL 0.03-0.39 BASO x10^3 (test code = 704-7) 0.01-0.07 Lab Interpretation (test code = 24913-3) Abnormal [facility]"
[2024-05-05] MEDS ORDERED: ONDANSETRON 4 MG/2 ML VIAL ONE (18:52)
[2024-05-05] MEDS ORDERED: MORPHINE 4 MG/ML SYR ONE (18:52)
[2024-05-05] MEDS ORDERED: NA CHLORIDE 0.9% 1,000 ML ONE ×2 (18:53→21:47)
[2024-05-05 19:03] LABS: Absolute Basophils 0.1 K/uL (0-0.5); Absolute Eosinophils 0.2 K/uL (0-0.5); Absolute Lymphocytes (CBC) 2.6 K/uL (0.7-4.9); Absolute Monocytes 1.2 K/uL (0.1-1.3); Absolute Neutrophil 9.1 K/uL (1.8-8.0); Basophils % 0.4 % (0-1.3); Eosinophils % 1.4 % (0-4.4); Hematocrit 37.7 % (36.0-45.0); Lymphocytes % 19.7 % (15.3-44.8); MCH 31.4 pg (27.0-35.0); MCHC 34.4 g/dL (32.0-36.0); MCV 91.1 fL (80-100); MPV 6.9 fL (7.6-11.3); Monocytes % 9.2 % (3.3-12.3); Neutrophils % 69.3 % (41.7-73.7); Platelets 323 thou/uL (152-406); RBC Red Blood Cell Count 4.13 M/uL (3.86-4.86); Red Cell Distribution Width 13.5 % (12.1-15.2)
[2024-05-05 19:05] LABS: Sqamous Epithelial <5 /HPF (None Seen); Urine Bacteria None Seen /HPF (<20); Urine Bilirubin NEGATIVE (Negative); Urine Blood Trace (Negative); Urine Clarity Turbid (Clear); Urine Color Light-Yellow (Yellow); Urine Crystals Unidentified Few /HPF (None Seen); Urine Culture Reflex Order NOT NEEDED; Urine Glucose NEGATIVE (Negative); Urine Ketones NEGATIVE (Negative); Urine Microscopic Reflex YN ORDER UMIC; Urine Mucus Slight /HPF (None Seen); Urine Nitrite NEGATIVE (Negative); Urine Protein 1+ (Negative); Urine RBC <5 /HPF (None Seen); Urine Urobilinogen Normal (Normal); Urine WBC <5 /HPF (<5); Urine WBC Clump Rare /HPF (None Seen); Urine Yeast (Budding) Trace /HPF (None Seen)
[2024-05-05 19:19] LABS: Albumin 3.6 g/dL (3.4-5.0); Albumin/Globulin Ratio 1.1 (1.1-1.8); Anion Gap 7.5 mEq/L (5.0-15.0); Bilirubin Total 0.3 mg/dL (0.2-1.0); Globulin 3.3 g/dL (2.3-3.5); Protein, Total 6.9 g/dL (6.4-8.2)
[2024-05-05 19:20] LABS: Potassium 4.5 mEq/L (3.5-5.1)
[2024-05-05] MEDS ORDERED: KETOROLAC 30 MG/ML INJ ONE (20:40)
--- NOTE | 2024-05-05 21:19 | RAD REPORT ---
EXAMINATION: CT Abdomen Pelvis W Contrast CLINICAL INDICATION: Female, 53 years old. ABD PAIN TECHNIQUE: CT abdomen and pelvis was performed, after the administration of 96 mL Isovue-300 intraven ously, as per department protocol. Axial, sagittal and coronal reconstructions were obtained. One or more of the following dose reduction techniques were used: Automated exposure control, adjustment of the mA and kV according to patient size, and iterative reconstruction. Unless otherwise specified, incidental findings do not require dedicated imaging follow-up. COMPARISON: 07/01/2020 FINDINGS: LOWER CHEST: The visualized lung bases are clear. LIVER: Normal in size and contour. Inferior right lobe 8 mm hypoattenuating lesion, essentially stabl e, may represent a small cyst or hemangioma. No suspicious focal lesion. BILIARY SYSTEM: No suspicious abnormalities. SPLEEN: Normal size. No focal lesion. PANCREAS: No mass, ductal dilation, or lenore-pancreatic fluid. ADRENALS: Normal; no mass. KIDNEYS: Bilateral diffuse enlargement, perinephric fat stranding, and relative hyperdensity/hyperenh ancement of the medulla. No radiopaque calculi. No hydroureteronephrosis. URINARY BLADDER: Unremarkable. GASTROINTESTINAL TRACT: No evidence of free air, significant intra-abdominal free fluid, bowel obstru ction or abscess. APPENDIX: Normal appendix. LYMPH NODES: No lymphadenopathy. MUSCULOSKELETAL: No acute or suspicious osseous abnormality. ADDITIONAL FINDINGS: None. IMPRESSION: Bilateral diffuse renal enlargement with perinephric fat stranding and medullary hyperdensity/hyperen hancement. Findings may relate to an infectious or inflammatory process, while additional acute renal injury such as acute tubular necrosis could result in a similar appearance. No evidence of obst ruction.
[2024-05-05 23:21] LABS: Anion Gap 10.7 mEq/L (5.0-15.0); Potassium 3.7 mEq/L (3.5-5.1)
--- NOTE | 2024-05-05 23:36 | EDPHYS ---
Physician Documentation [facility] Name: Stephania Lobo Age: 53 yrs Sex: Female : 1970 Arrival Date: 05/05/2024 Time: 17:07 Bed 14 Private MD: ED Physician Ha Martinez HPI: 05/05 17:39 This 53 yrs old Female presents to ER via Ambulatory with complaints of sb4 Abdominal Pain. 17:39 patient reports epigastric abdominal pain x 4 days, after starting ciprofloxacin and sb4 ear drops for bilateral ear infections. also endorses nausea. no vomiting, diarrhea, or fever. she would like to be checked for UTI as well. 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 - Infectious Disease History:: Denies. - Social history:: Smoking status: Patient reports the use of cigarette tobacco products, denies chronic smoking, but will smoke occasionally. ROS: 17:40 Constitutional: Negative for fever, chills, and weight loss, sb4 17:40 Abdomen/GI: Positive for abdominal pain, nausea, 17:40 All other systems are negative, Exam: 17:40 Head/Face: Normocephalic, atraumatic. Eyes: Extra-ocular motions intact. Periorbital sb4 areas with no swelling, redness, or edema. ENT: Mucous membranes moist. Cardiovascular: Regular rate and rhythm with a normal S1 and S2. Respiratory: No increased work of breathing, no retractions or nasal flaring. Skin: Warm, dry with normal turgor. Normal color with no rashes, no lesions, and no evidence of cellulitis. 17:40 Constitutional: The patient appears alert, awake, uncomfortable, 17:40 ENT: Ear canal(s): are normal, no acute changes, TM's: are normal, no acute changes, 17:40 Abdomen/GI: Inspection: abdomen appears normal, Bowel sounds: normal, Palpation: soft, nontender, in the right upper quadrant and left upper quadrant, Vital Signs: 17:29 BP 127 / 74; Pulse 72; Resp 16; Temp 97.2; Pulse Ox 98% on R/A; Weight 52.62 kg; Height cm10 5 ft. 2 in. ; Pain 10/10; 18:00 BP 134 / 78; Pulse 73; Resp 16; Pulse Ox 100% ; me1 19:00 BP 129 / 78; Pulse 66; Resp 16; Pulse Ox 100% ; me1 20:00 BP 135 / 81; Pulse 71; Resp 16; Pulse Ox 98% ; me1 21:00 BP 121 / 80; Pulse 66; Resp 16; Pulse Ox 98% ; me1 22:00 BP 120 / 75; Pulse 63; Resp 15; Pulse Ox 99% ; me1 23:00 BP 104 / 74; Pulse 95; Resp 14; Pulse Ox 95% ; me1 17:29 Body Mass Index 21.22 (52.62 kg, 157.48 cm) cm10 17:29 Pain Scale: Adult cm10 MDM: 17:29 Medical Screening Exam initiated sb4 23:35 Data reviewed: vital signs, nurses notes, lab test result(s), radiologic studies, I sb4 have discussed the patient's presentation/case with the attending Emergency Department Physician; and as a result, I will discharge patient. Counseling: I had a detailed discussion with the patient and/or guardian regarding the historical points, exam findings, and any diagnostic results supporting the discharge/admit diagnosis, lab results, radiology results, the need for outpatient follow up, for definitive care. 05/05 17:30 Order name: CBC with Diff; Complete Time: 19:09 sb4 05/05 17:30 Order name: CMP; Complete Time: 19:20 sb4 05/05 17:30 Order name: Lipase; Complete Time: 19:20 sb4 05/05 17:30 Order name: Urinalysis w/ reflexes; Complete Time: 19:06 sb4 05/05 21:34 Order name: Urine Sodium Random; Complete Time: 22:36 sb4 05/05 21:34 Order name: Urine Creatinine; Complete Time: 22:12 sb4 05/05 21:58 Order name: BMP; Complete Time: 23:38 sp4 05/06 01:26 Order name: Urinalysis w/ reflexes EDMS 05/06 01:26 Order name: CBC with Automated Diff EDMS 05/06 01:26 Order name: CBC with Automated Diff EDMS 05/06 01:26 Order name: Comprehensive Metabolic Panel EDMS 05/06 01:26 Order name: Comprehensive Metabolic Panel EDMS 05/05 17:30 Order name: CT Abd/Pelvis - IV Contrast Only; Complete Time: 21:20 sb4 05/05 17:30 Order name: IV Saline Lock; Complete Time: 18:58 sb4 05/05 17:30 Order name: Labs collected and sent; Complete Time: 18:58 sb4 Administered Medications: 19:04 Drug: Ondansetron IVP 4 mg IVP once; over 2 minutes Route: IVP; Site: right antecubital;me1 20:46 Follow up: Response: No adverse reaction; Nausea is decreased me1 19:04 Drug: morphine IVP or IV 4 mg IVP once over 4 mins Route: IVP; Infused Over: 4 mins; me1 Site: right antecubital; 20:46 Follow up: Response: No adverse reaction; Pain is unchanged, physician notified me1 19:04 Drug: NS 0.9% IV 1000 ml IV at 1 bolus Per protocol; to be given as a bolus over 60 me1 minutes Route: IV; Rate: 1 bolus; Site: right antecubital; 20:47 Follow up: Response: No adverse reaction; IV Status: Completed infusion; IV Intake: me1 1000ml 20:46 Drug: Ketorolac IVP 15 mg IVP once Route: IVP; Site: right antecubital; me1 21:56 Follow up: Response: No adverse reaction; Pain is decreased me1 21:57 Drug: NS 0.9% IV 1000 ml IV at 1 bolus Per protocol; to be given as a bolus over 60 me1 minutes Route: IV; Rate: 1 bolus; Site: right antecubital; 22:55 Follow up: Response: No adverse reaction; IV Status: Completed infusion; IV Intake: me1 1000ml 05/06 01:21 Drug: Hydrocodone-Acetaminophen PO (7.5 mg-325 mg) 1 tabs PO once Route: PO; jb4 Disposition Summary: 05/05/24 23:45 Hospitalization Ordered Notes: Hospitalization Status: Observation sb4 Provider: Myles Gonzalez sb4 Condition: Fair(05/05/24 23:45) sb4 Problem: new(05/05/24 23:45) sb4 Symptoms: have worsened(05/05/24 23:45) sb4 Bed/Room Type: Standard sb4 Location: Telemetry/MedSurg (observation)(05/06/24 09:53) bd Room Assignment: 209(05/06/24 09:53) bd Diagnosis - Acute kidney failure, unspecified sb4 Forms: - Medication Reconciliation Form sb4 - SBAR form sb4 - Leadership Thank You Letter sb4 Addendum: 05/09/2024 09:03 Co-signature as Attending Physician, Ha Martinez MD I agree with the assessment and c peterson plan of care. Signatures: Dispatcher [employer] EDMS Trudi Hernandez Corey, MD MD cha Bryson, James, RN RN jb4 Gwen Talley PABebaC PA-C sb4 Bernadine Joshi rv1 Wendi Zavala, RN RN cm10 Jennifer Hernandez, RN RN me1 Corrections: (The following items were deleted from the chart) 05/05 21:59 21:59 BASIC METABOLIC PANEL+C.LAB.BRZ ordered. EDMS EDMS 23:39 23:36 Home sb4 sb4 23:39 23:36 new sb4 sb4 23:39 23:36 have improved sb4 sb4 23:39 23:36 Stable sb4 sb4 23:39 23:36 Acute kidney injury secondary to fluoroquinolone use sb4 sb4 05/06 02:36 05/05 23:45 Telemetry/MedSurg (observation) sb4 rv1 05/06 02:36 05/05 23:45 sb4 rv1 05/06 09:53 02:36 [facility] ER HOLD rv1 bd 09:53 02:36 ERHOLD- rv1 bd
--- NOTE | 2024-05-05 23:36 | ER ---
Nurse's Notes [facility] Name: Stephania Lobo Age: 53 yrs Sex: Female : 1970 Arrival Date: 05/05/2024 Time: 17:07 Bed 14 Private MD: Diagnosis: Acute kidney failure, unspecified Presentation: 05/05 17:27 Chief complaint: Patient states: DIAGNOSED WITH EAR INFECTION ON SUNDAY AND SINCE cm10 SUNDAY SHE HAS HAD ABDOMINAL PAIN. PT ALSO REPORTS NAUSEA AND VOMITING. Coronavirus screen: Client denies travel out of the [place] in the last 14 days. Ebola Screen: Patient denies travel to an Ebola-affected area in the 21 days before illness onset. No symptoms or risks identified at this time. Initial Sepsis Screen: Does the patient meet any 2 criteria? No. Patient's initial sepsis screen is negative. Does the patient have a suspected source of infection? No. Patient's initial sepsis screen is negative. Risk Assessment: Do you want to hurt yourself or someone else? Patient reports no desire to harm self or others. Onset of symptoms was May 01, 2024. 17:27 Method Of Arrival: Ambulatory cm10 17:27 Acuity: ANA 3 cm10 Triage Assessment: 17:29 General: Appears in no apparent distress. uncomfortable, Behavior is calm, cooperative. cm10 Neuro: No deficits noted. Level of Consciousness is awake, alert, obeys commands, Oriented to person, place, time, situation, Appropriate for age. Respiratory: No deficits noted. Airway is patent Respiratory effort is even, unlabored, Respiratory pattern is regular, symmetrical. 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 - Infectious Disease History:: Denies. - Social history:: Smoking status: Patient reports the use of cigarette tobacco products, denies chronic smoking, but will smoke occasionally. Screenin:00 [facility] ED Fall Risk Assessment (Adult) History of falling in the last 3 months, me1 including since admission No falls in past 3 months (0 pts) Confusion or Disorientation No (0 pts) Intoxicated or Sedated No (0 pts) Impaired Gait No (0 pts) Mobility Assist Device Used No (0 pt) Altered Elimination No (0 pt) Score/Fall Risk Level 0 - 2 = Low Risk Maintained a safe environment, Provided non-skid footwear, Hourly rounding (assess needs \T\ fall precautionary measures) done. Abuse screen: Denies threats or abuse. Nutritional screening: No deficits noted. Tuberculosis screening: No symptoms or risk factors identified. Assessment: 18:00 General: Appears uncomfortable, ill, well groomed, well developed, well nourished, me1 Behavior is calm, cooperative, appropriate for age, Reports. Pain: Complains of pain in left upper quadrant and right upper quadrant Pain does not radiate. Pain currently is 10 out of 10 on a pain scale. Quality of pain is described as crampy, sharp, Pain began suddenly, Is continuous. Neuro: Level of Consciousness is awake, alert, obeys commands, Oriented to person, place, time, situation, Appropriate for age. Cardiovascular: Patient's skin is warm and dry. Respiratory: Airway is patent Respiratory effort is even, unlabored, Respiratory pattern is regular, symmetrical. GI: Reports upper abdominal pain, nausea, vomiting, since . : No signs and/or symptoms were reported regarding the genitourinary system. EENT: No signs and/or symptoms were reported regarding the EENT system. Derm: Skin is intact, is healthy with good turgor, Skin is pink, warm \T\ dry. Musculoskeletal: No signs and/or symptoms reported regarding the musculoskeletal system. Vital Signs: 17:29 BP 127 / 74; Pulse 72; Resp 16; Temp 97.2; Pulse Ox 98% on R/A; Weight 52.62 kg; Height cm10 5 ft. 2 in. ; Pain 10/10; 18:00 BP 134 / 78; Pulse 73; Resp 16; Pulse Ox 100% ; me1 19:00 BP 129 / 78; Pulse 66; Resp 16; Pulse Ox 100% ; me1 20:00 BP 135 / 81; Pulse 71; Resp 16; Pulse Ox 98% ; me1 21:00 BP 121 / 80; Pulse 66; Resp 16; Pulse Ox 98% ; me1 22:00 BP 120 / 75; Pulse 63; Resp 15; Pulse Ox 99% ; me1 23:00 BP 104 / 74; Pulse 95; Resp 14; Pulse Ox 95% ; me1 17:29 Body Mass Index 21.22 (52.62 kg, 157.48 cm) cm10 17:29 Pain Scale: Adult cm10 ED Course: 17:10 Patient arrived in ED. mr 17:10 Gwne Talley [facility] sb4 17:10 Ha Martinez MD is Attending Physician. sb4 17:28 Triage completed. cm10 17:29 Arm band placed on right wrist. Patient placed in waiting room. cm10 18:00 Patient has correct armband on for positive identification. Bed in low position. Call me1 light in reach. Side rails up X2. Provided Education on: POC. Verbalized understanding.. Client placed on continuous cardiac and pulse oximetry monitoring. NIBP monitoring applied. telemetry monitor on. Pulse ox on. NIBP on. 18:00 No provider procedures requiring assistance completed. me1 18:28 Jennifer Hernandez, RN is Primary Nurse. me1 18:58 Warm blanket given. Verbal reassurance given. am7 18:58 Inserted saline lock: 20 gauge in right forearm, using aseptic technique. Blood am7 collected. Flushed with 10 mL NS. 20:06 CT Abd/Pelvis - IV Contrast Only In Process Unspecified. EDMS 21:56 Urine Creatinine Sent. me1 21:56 Urine Sodium Random Sent. me1 22:54 BMP Sent. oe 23:35 Diego Estevez DO is Referral Physician. sb4 23:45 Myles Gonzalez MD is Hospitalizing Provider. sb4 05/06 04:57 Orthoglass splint:. oe Administered Medications: 05/05 19:04 Drug: Ondansetron IVP 4 mg IVP once; over 2 minutes Route: IVP; Site: right antecubital;me1 20:46 Follow up: Response: No adverse reaction; Nausea is decreased me1 19:04 Drug: morphine IVP or IV 4 mg IVP once over 4 mins Route: IVP; Infused Over: 4 mins; me1 Site: right antecubital; 20:46 Follow up: Response: No adverse reaction; Pain is unchanged, physician notified me1 19:04 Drug: NS 0.9% IV 1000 ml IV at 1 bolus Per protocol; to be given as a bolus over 60 me1 minutes Route: IV; Rate: 1 bolus; Site: right antecubital; 20:47 Follow up: Response: No adverse reaction; IV Status: Completed infusion; IV Intake: me1 1000ml 20:46 Drug: Ketorolac IVP 15 mg IVP once Route: IVP; Site: right antecubital; me1 21:56 Follow up: Response: No adverse reaction; Pain is decreased me1 21:57 Drug: NS 0.9% IV 1000 ml IV at 1 bolus Per protocol; to be given as a bolus over 60 me1 minutes Route: IV; Rate: 1 bolus; Site: right antecubital; 22:55 Follow up: Response: No adverse reaction; IV Status: Completed infusion; IV Intake: me1 1000ml 05/06 01:21 Drug: Hydrocodone-Acetaminophen PO (7.5 mg-325 mg) 1 tabs PO once Route: PO; jb4 Medication: 05/05 18:00 VIS not applicable for this client. me1 Intake: 20:47 IV: 1000ml; Total: 1000ml. me1 22:55 IV: 1000ml; Total: 2000ml. me1 Outcome: 23:36 Discharge ordered by MD. sb4 23:45 Decision to Hospitalize by Provider. sb4 05/06 11:12 Patient left the ED. ph Signatures: Dispatcher [employer] EDNV Sherley Kaur, Juarez Reg Rochelle Bland, RN RN ph Jacob Alegria, ELAINE RN jb4 Rush Dacosta Sophia PAOg PAOg sb4 Wendi Zavala RN RN cm10 Jennifer Hernandez RN RN me1 Supriya Vasquez am7 Corrections: (The following items were deleted from the chart) 05/05 21:35 17:27 Chief complaint: Patient states: DIAGNOSED WITH EAR INFECTION ON SUNDAY AND me1 SINCE SUNDAY SHE HAS HAD ABDOMINAL PAIN. PT ALSO REPORTS NAUSEA AND VOMITING. cm10
[2024-05-06] MEDS ORDERED: HYDROCODONE/APAP 7.5/325 MG TAB ONE (01:14)
--- NOTE | 2024-05-06 01:20 | P.HP ---
Certification for Inpatient Patient admitted to: Inpatient With expected LOS: >2 Midnights Practitioner: I am a practitioner with admitting privileges, knowledge of patient current condition, hospital course, and medical plan of care. Services: Services provided to patient in accordance with Admission requirements found in Title 42 Section 412.3 of the Code of Federal Regulations Patient History Date of Service: 05/06/24 Reason for admission: Abdominal Pain , Pyelonephritis History of Present Illness: 53 yrs old with no significant past medical history female brought to ER with abdominal pain which has been going on for the last 1 week. Pain was located in the epigastric region and also diffusely. Has flank pains bilateral. Denies any fever or chills. Has nausea but no vomiting or diarrhea. Patient has recent urine infection for which she was on ciprofloxacin. Patient also having some dysuria and frequency of micturition. Denies any chest pain or ruy rtness of breath. Patient was assessed in the ER and was found to be having possible pyelonephritis and acute kidney injury and was admitted for further management. Allergies Penicillins Allergy (Verified 04/02/12 21:27) Rash Home medications list reviewed: Yes Home Medications: Dicyclomine HCl 20 mg PO TID PRN 08/30/18 L.acidoph,Paracasei, B.lactis [Probiotic] 1 tab PO DAILY 08/30/18 Omeprazole [Prilosec] 40 mg PO BID 08/30/18 Sucralfate [Carafate*] 1 gm PO BID 08/30/18 Tramadol HCl [Ultram] 50 mg PO Q6H PRN 08/30/18 - Past Medical/Surgical History Past Medical History: Reviewed- Non-Contributory Past Surgical History: Reviewed- Non-Contributory - Family History Family History: Reviewed- Non-Contributory - Social History Smoking Status: Never smoker Review of Systems 10-point ROS is otherwise unremarkable Physical Examination - Vital Signs Temperature: 97.9 F Blood Pressure: 122/76 Pulse: 78 Respirations: 18 Pulse Ox (%): 95 - Physical Exam General: Alert, Oriented x3, Mild distress HEENT: Atraumatic, Normocephalic Neck: Supple, No Thyromegaly Respiratory: Clear to auscultation bilaterally, Normal air movement Cardiovascular: Regular rate/rhythm, Normal S1 S2 Capillary refill: <2 Seconds Gastrointestinal: Soft and benign, W/out hepatosplenomegaly, Tenderness Musculoskeletal: No clubbing, No swelling Integumentary: No rashes, No breakdown Neurological: Normal gait, Normal speech, Normal strength at 5/5 x4 extr Lymphatics: No axilla or inguinal lymphadenopathy - Studies Laboratory Data (last 24 hrs) 05/05/24 05/05/24 05/05/24 22:53 18:49 18:49 WBC 13.20 H Hgb 13.0 Hct 37.7 Plt Count 323 Sodium 138 139 Potassium 3.7 D 4.5 BUN 21 H 23 H Creatinine 1.46 H 1.30 H Glucose 103 100 Total Bilirubin 0.3 AST 32 ALT 16 Alkaline Phosphatase 89 Lipase 25 Assessment and Plan - Plan Nonspecific abdominal pain Pyelonephritis Leukocytosis Monitor CBC in a.m. Started on IV antibiotic Pain control Will obtain cultures UA was negative possibly because of recent Cipro therapy Acute kidney injury IV hydration Possibly prerenal Monitor electrolytes and replace accordingly GI/DVT prophylaxis Advanced directive full code Discharge Plan: Home Plan to discharge in: 48 Hours - Advance Directives Does patient have a Living Will: No Does patient have a Durable POA for Healthcare: No - Code Status/Comfort Care Code Status: Full Code Time Spent Managing Pts Care (In Minutes): 48
[2024-05-06] MEDS: NA CHLORIDE 0.9% 1,000 ML IV SCH (02:00)
[2024-05-06 04:41] VITALS: BMI 22.4
[2024-05-06] MEDS ORDERED: ACETAMINOPHEN 325 MG TABLET ONE (05:16)
[2024-05-06] MEDS ORDERED: NA CHLORIDE 0.9% 1,000 ML ONE (05:17)
[2024-05-06] MEDS: ACETAMINOPHEN 325 MG TABLET PO PRN (05:23)
[2024-05-06] MEDS: PANTOPRAZOLE 40MG TABLET PO SCH (07:30)
[2024-05-06] MEDS ORDERED: PANTOPRAZOLE 40MG TABLET PO ONE (08:47)
[2024-05-06] MEDS ORDERED: AZTREONAM 1 GM/VIAL ONE (08:47)
[2024-05-06] MEDS ORDERED: TRAMADOL HCL 50 MG TAB ONE (08:47)
[2024-05-06] MEDS ORDERED: ONDANSETRON 4 MG/2 ML VIAL ONE (08:47)
[2024-05-06] MEDS ORDERED: NA CHLORIDE 0.9% 100 ML ONE (08:48)
[2024-05-06] MEDS ORDERED: ENOXAPARIN 40 MG/0.4 ML SQ ONE (08:48)
[2024-05-06] MEDS: ENOXAPARIN 40 MG/0.4 ML SQ SCH (09:00)
[2024-05-06] MEDS: AZTREONAM 1 GM in NA CHLORIDE 0.9% 100 ML IV SCH ×2 (09:00→21:35)
[2024-05-06] MEDS: LACTOBACILLUS/ACIDOPHILUS TAB PO SCH (09:00)
[2024-05-06] MEDS: TRAMADOL HCL 50 MG TAB PO PRN (09:15)
[2024-05-06] MEDS: ONDANSETRON 4 MG/2 ML VIAL IV PRN (09:16)
[2024-05-06 11:57] VITALS: O2SAT 95
[2024-05-06] MEDS: DICYCLOMINE HCL 10 MG CAP PO PRN (15:23)
[2024-05-06 15:55] LABS: Specific Gravity 1.023 (1.005-1.030); Sqamous Epithelial <5 /HPF (None Seen); Urine Bacteria None Seen /HPF (<20); Urine Bilirubin NEGATIVE (Negative); Urine Blood Negative (Negative); Urine Clarity Clear (Clear); Urine Color Colorless (Yellow); Urine Culture Reflex Order NOT NEEDED; Urine Glucose NEGATIVE (Negative); Urine Ketones NEGATIVE (Negative); Urine Microscopic Reflex YN ORDER UMIC; Urine Nitrite NEGATIVE (Negative); Urine Protein TRACE (Negative); Urine RBC <5 /HPF (None Seen); Urine Urobilinogen Normal (Normal); Urine WBC <5 /HPF (<5); Urine pH 5.5 (5.0-7.0)
--- NOTE | 2024-05-06 18:19 | P.PN ---
Date of Service: 05/06/24 Subjective Awake, continues with back and diffuse abdominal pain No new complaints ROS 10 point ROS as noted above, otherwise negative Physical Exam General: Alert and Oriented x3, NAD HEENT: Atraumatic, Normocephalic Neck: Supple, No Thyromegaly Respiratory: Clear to auscultation bilaterally, Normal air movement, on RA Cardiovascular: NSR, Normal S1 S2 Capillary refill: <2 Seconds Gastrointestinal: Soft and benign on palpation, Tenderness, normal active bowel sounds Musculoskeletal: No clubbing, No swelling Integumentary: No rashes, No breakdown Neurological: Normal gait, Normal speech, Normal strength at 5/5 x4 extr Lymphatics: No axilla or inguinal lymphadenopathy Vitals Reviewed Problem list Nonspecific abdominal pain Pyelonephritis Leukocytosis Acute kidney injury Assessment and Plan Nonspecific abdominal pain Pyelonephritis Mild Leukocytosis Monitor CBC in a.m. Started on IV antibiotic Pain control UA was negative possibly because of recent Cipro therapy Acute kidney injury BUN/creatinine 21/1.46, GFR 43 IV hydration Possibly prerenal Monitor electrolytes and replace accordingly DVT ppx lovenox Code status LOS 2 days
[2024-05-07] MEDS: MORPHINE 2 MG/ML SYR IV PRN (01:08)
[2024-05-07 04:53] LABS: Absolute Eosinophils 0.1 K/uL (0-0.5); Absolute Lymphocytes (CBC) 3.4 K/uL (0.7-4.9); Absolute Monocytes 0.8 K/uL (0.1-1.3); Basophils % 0.1 % (0-1.3); Eosinophils % 1.4 % (0-4.4); Hematocrit 30.4 % (36.0-45.0); Hemoglobin 10.1 g/dL (12.0-15.0); Lymphocytes % 32.4 % (15.3-44.8); MCH 31.2 pg (27.0-35.0); MCHC 33.3 g/dL (32.0-36.0); MCV 93.6 fL (80-100); MPV 7.2 fL (7.6-11.3); Neutrophils % 58.1 % (41.7-73.7); Platelets 255 thou/uL (152-406); RBC Red Blood Cell Count 3.24 M/uL (3.86-4.86); Red Cell Distribution Width 13.5 % (12.1-15.2)
[2024-05-07 05:20] LABS: AST/SGOT 26 U/L (15-37); Albumin 2.9 g/dL (3.4-5.0); Albumin/Globulin Ratio 1.2 (1.1-1.8); Alkaline Phosphatase 65 U/L (45-117); Anion Gap 8.4 mEq/L (5.0-15.0); BUN Blood Urea Nitrogen 22 mg/dL (7-18); Bicarbonate 21 mEq/L (21-32); Bilirubin Total 0.3 mg/dL (0.2-1.0); Globulin 2.5 g/dL (2.3-3.5); Glomerular Filtration Rate 32 ml/min (=/>90); Glucose Level 95 mg/dL (74-106); Potassium 4.4 mEq/L (3.5-5.1); Protein, Total 5.4 g/dL (6.4-8.2); Sodium Level 142 mEq/L (136-145)
[2024-05-07 05:25] LABS: ALT/SGPT < 14 U/L (13-56)
[2024-05-07 06:23] LABS: Magnesium 2.2 mg/dL (1.6-2.4); Phosphorus 4.4 mg/dL (2.5-4.9)
--- NOTE | 2024-05-07 07:26 | P.PN ---
Date of Service: 05/07/24 Subjective Awake, continues with diffuse abdominal and back pain C/O bilateral ear discomfort, she was taking ciprofloxacin outpatient Chloride and creatinine elevated, Changed IVF Continue with IV antibiotics and pain control ROS 10 point ROS as noted above, otherwise negative Physical Exam General: AAO x3, NAD HEENT: Atraumatic, Normocephalic Neck: Supple, No Thyromegaly Respiratory: Clear to auscultation bilaterally, Normal air movement, on RA Cardiovascular: NSR, Normal S1 S2 Capillary refill: <2 Seconds Gastrointestinal: Soft on palpation, Tenderness, normal active bowel sounds Musculoskeletal: No clubbing, No swelling, Back tenderness Integumentary: No rashes, No breakdown Neurological: Normal gait, Normal speech, Normal strength at 5/5 x4 extr Lymphatics: No axilla or inguinal lymphadenopathy Vitals Reviewed Problem list Nonspecific abdominal pain Pyelonephritis Leukocytosis-resolved Acute kidney injury Hyperchloremia Assessment and Plan Nonspecific abdominal pain Acute Bilateral Pyelonephritis Mild Leukocytosis-resolved Monitor CBC in a.m. Started on IV rocephin Pain control UA was negative possibly because of recent Cipro therapy Acute kidney injury Hyperchloremia BUN/creatinine 22/1.85, GFR 32, chloride 117 IV hydration, changed from NS to D5W Possibly prerenal Monitor electrolytes and replace PRN DVT ppx lovenox Code status LOS 2 days
[2024-05-07] MEDS: D5W 1,000 ML IV SCH (08:09)
[2024-05-07] MEDS: HYDROCODONE/APAP 5/325 MG TAB PO PRN (09:49)
[2024-05-07] MEDS: ENOXAPARIN 30 MG/0.3 ML SQ SCH (09:49)
[2024-05-07] MEDS: CEFTRIAXONE 1,000 MG in NA CHLORIDE 0.9% 50 ML IVPB SCH (12:13)
[2024-05-07] MEDS: HYDROMORPHONE HCL 1 MG/ML INJ IV PRN (17:51)
[2024-05-08 05:29] LABS: Absolute Eosinophils 0.1 K/uL (0-0.5); Absolute Monocytes 0.6 K/uL (0.1-1.3); Absolute Neutrophil 4.3 K/uL (1.8-8.0); Basophils % 0.1 % (0-1.3); Eosinophils % 1.7 % (0-4.4); Hematocrit 28.7 % (36.0-45.0); Hemoglobin 9.9 g/dL (12.0-15.0); Lymphocytes % 36.9 % (15.3-44.8); MCH 31.7 pg (27.0-35.0); MCHC 34.5 g/dL (32.0-36.0); MPV 7.2 fL (7.6-11.3); Monocytes % 7.7 % (3.3-12.3); Neutrophils % 53.6 % (41.7-73.7); Nucleated Red Blood Cells % 0.2 % (0-0); Platelets 253 thou/uL (152-406); RBC Red Blood Cell Count 3.12 M/uL (3.86-4.86); Red Cell Distribution Width 13.4 % (12.1-15.2)
[2024-05-08 05:43] LABS: Anion Gap 5.8 mEq/L (5.0-15.0); Magnesium 2.2 mg/dL (1.6-2.4); Phosphorus 3.3 mg/dL (2.5-4.9); Potassium 3.8 mEq/L (3.5-5.1)
[2024-05-08] MEDS: POTASSIUM CL SA 10 MEQ TAB PO ONE (08:49)
[2024-05-08] MEDS: ENOXAPARIN 40 MG/0.4 ML SQ SCH (08:50)
--- NOTE | 2024-05-08 11:28 | EKG ---
Test Date: 2024-05-07 Test Time: 10:57:49 Cvicu Rn: TIAGO MEASUREMENT RESULTS: Intervals: Rate: 56 MO: 184 QRSD: 94 QT: 404 QTc: 389 [place]: P: 71 MO: 184 QRS: 82 T: 66 INTERPRETIVE STATEMENTS: Sinus bradycardia Otherwise normal ECG Compared to ECG 10/26/2015 01:48:05 Sinus rhythm no longer present Electronically Signed On 05-08-24 11:27:09 NEWSPAPER WRITER by Berto Lama
--- NOTE | 2024-05-08 16:13 | P.PN ---
Date of Service: 05/08/24 Subjective Awake, continues with back pain C/O bilateral ear discomfort, she was taking ciprofloxacin outpatient ROS 10 point ROS as noted above, otherwise negative Physical Exam General: AAO x3, NAD HEENT: Atraumatic, Normocephalic Neck: Supple, No Thyromegaly Respiratory: Clear to auscultation bilaterally, Normal air movement, on RA Cardiovascular: NSR, Normal S1 S2 Capillary refill: <2 Seconds Gastrointestinal: Soft on palpation, Tenderness, normal active bowel sounds Musculoskeletal: No clubbing, No swelling, Back tenderness Integumentary: No rashes, No breakdown Neurological: Normal gait, Normal speech, Normal strength at 5/5 x4 extr Lymphatics: No axilla or inguinal lymphadenopathy Vitals Reviewed Problem list Pyelonephritis Leukocytosis-resolved Acute kidney injury Hyperchloremia Assessment and Plan Nonspecific abdominal pain Acute Bilateral Pyelonephritis Mild Leukocytosis-resolved Monitor CBC in a.m. Started on IV rocephin 05/08/24 Pain control UA was negative possibly because of recent Cipro therapy Acute kidney injury Hyperchloremia BUN/creatinine 22/1.85, GFR 32, chloride 117 IV hydration, changed from NS to D5W Possibly prerenal Monitor electrolytes and replace PRN DVT ppx lovenox Code status: full LOS 2 days <Yen Winchester - Last Filed: 05/08/24 16:13> Patient is diagnosis with acute pyelonephritis clinically and radiographically, treating with IV ceftriaxone, Leukocytosis resolved, urinary symptoms resolved, urine function test stabilized , UA shows no bacteriuria therefore, no urine culture done by reflex, however patient continued to complaining of both flank pain and abdominal pain, nausea and vomiting, I will order abdominal ultrasound to look for any other organic lesion or perinephric abscess, will try oral methocarbamol, lidocaine patch, obtain urine culture <KENYA Ramirez - Last Filed: 05/08/24 17:31>
[2024-05-08] MEDS: PROMETHAZINE INJ 25 MG/ML AMP IV PRN (17:22)
[2024-05-08] MEDS: methocarbamoL 750 MG TAB PO SCH (17:22)
[2024-05-09 04:54] LABS: Absolute Eosinophils 0.2 K/uL (0-0.5); Absolute Lymphocytes (CBC) 3.4 K/uL (0.7-4.9); Absolute Monocytes 0.6 K/uL (0.1-1.3); Absolute Neutrophil 2.2 K/uL (1.8-8.0); Hematocrit 29.4 % (36.0-45.0); Hemoglobin 9.7 g/dL (12.0-15.0); Lymphocytes % 53.5 % (15.3-44.8); MCH 30.8 pg (27.0-35.0); MCV 93.2 fL (80-100); MPV 7.4 fL (7.6-11.3); Monocytes % 9.3 % (3.3-12.3); Neutrophils % 34.2 % (41.7-73.7); Platelets 246 thou/uL (152-406); RBC Red Blood Cell Count 3.16 M/uL (3.86-4.86); Red Cell Distribution Width 13.4 % (12.1-15.2)
[2024-05-09 05:10] LABS: Anion Gap 6.8 mEq/L (5.0-15.0); Magnesium 2.1 mg/dL (1.6-2.4); Phosphorus 3.4 mg/dL (2.5-4.9); Potassium 3.8 mEq/L (3.5-5.1)
--- NOTE | 2024-05-09 07:42 | RAD REPORT ---
EXAMINATION: COMPLETE ABDOMINAL ULTRASOUND CLINICAL INDICATION: Persistent abdominal pain and bilateral flank pain TECHNIQUE: Grayscale ultrasonography of the abdomen was performed. COMPARISON: No prior exam. FINDINGS: LIVER: Normal size and echogenicity. No masses seen. Small 10 mm benign cyst. GALLBLADDER: No gallstones, gall bladder wall thickening or pericholecystic fluid. BILE DUCTS: Intrahepatic and extrahepatic bile ducts appear normal. Measured near the jaya hepatis , the common bile duct is 5 mm. RIGHT KIDNEY: Normal in echogenicity and size. No calculus, solid mass or hydronephrosis. LEFT KIDNEY:. Normal in echogenicity and size. No calculus, solid mass or hydronephrosis. SPLEEN: Normal in echogenicity, with length of 8 cm. PANCREAS/AORTA: Partially obscured by bowel gas without abnormality grossly appreciated. IMPRESSION: No acute or significant abnormalities.
[2024-05-09] MEDS: LIDOCAINE 4% PATCH TOP SCH (07:49)
--- NOTE | 2024-05-09 09:53 | P.PN ---
Date of Service: 05/09/24 Subjective Awake, continues with back pain but it is improved with muscle relaxer addition denies ear pain today Nausea and vomiting resolved, will advance diet today ROS 10 point ROS as noted above, otherwise negative Physical Exam General: AAO x3, NAD HEENT: Atraumatic, Normocephalic Neck: Supple, No Thyromegaly Respiratory: Clear to auscultation bilaterally, Normal air movement, on RA Cardiovascular: NSR, Normal S1 S2 Capillary refill: <2 Seconds Gastrointestinal: Soft on palpation, tenderness improved, normal active bowel sounds Musculoskeletal: No clubbing, No swelling, Back tenderness Integumentary: No rashes, No breakdown Neurological: Normal gait, Normal speech, Normal strength at 5/5 x4 extr Lymphatics: No axilla or inguinal lymphadenopathy Vitals Reviewed Problem list Pyelonephritis Leukocytosis-resolved Acute kidney injury Hyperchloremia Assessment and Plan Nonspecific abdominal pain Acute Bilateral Pyelonephritis Mild Leukocytosis-resolved Monitor CBC Started on IV rocephin 05/08/24 Pain control UA was negative possibly because of recent Cipro therapy, clinically and on imaging, pt with bilat pyelo, abd us and CPK obtained for continued abd pain, n/v 05/08/24, studies negative, s/s improved today 04/21/24 Acute kidney injury Hyperchloremia BUN/creatinine 22/1.85, GFR 32, chloride 117, creatinine normalized IV hydration, changed from NS to D5W, will change diet today (05/09/24) Possibly prerenal Monitor electrolytes and replace PRN - normalized and UA clearing DVT ppx lovenox Code status: full LOS 2 days
[2024-05-09] MEDS: methocarbamoL 500 MG TAB PO SCH (14:00)
[2024-05-10 07:13] LABS: Absolute Eosinophils 0.2 K/uL (0-0.5); Absolute Lymphocytes (CBC) 2.9 K/uL (0.7-4.9); Absolute Monocytes 0.5 K/uL (0.1-1.3); Basophils % 0.1 % (0-1.3); Eosinophils % 3.5 % (0-4.4); Hematocrit 28.6 % (36.0-45.0); Hemoglobin 9.9 g/dL (12.0-15.0); Lymphocytes % 43.4 % (15.3-44.8); MCH 31.8 pg (27.0-35.0); MCHC 34.7 g/dL (32.0-36.0); MCV 91.6 fL (80-100); MPV 7.3 fL (7.6-11.3); Monocytes % 8.1 % (3.3-12.3); Neutrophils % 44.9 % (41.7-73.7); Nucleated Red Blood Cells % 0.2 % (0-0); Platelets 292 thou/uL (152-406); RBC Red Blood Cell Count 3.12 M/uL (3.86-4.86); Red Cell Distribution Width 13.5 % (12.1-15.2)
[2024-05-10 07:31] LABS: Anion Gap 7.8 mEq/L (5.0-15.0); Phosphorus 3.4 mg/dL (2.5-4.9); Potassium 3.8 mEq/L (3.5-5.1)
--- NOTE | 2024-05-10 08:12 | P.PN ---
Date of Service: 05/10/24 Subjective Awake, continues with back pain but it is improved with muscle relaxer addition and increase, continued abdominal pain denies ear pain Nausea and vomiting resolved, will advance diet today, Nausea but no vomiting overnight ROS 10 point ROS as noted above, otherwise negative Physical Exam General: AAO x3, NAD HEENT: Atraumatic, Normocephalic Neck: Supple, No Thyromegaly Respiratory: Clear to auscultation bilaterally, Normal air movement, on RA Cardiovascular: NSR, Normal S1 S2 Capillary refill: <2 Seconds Gastrointestinal: Soft on palpation, normal active bowel sounds, very tender to right upper and lower abdomen Musculoskeletal: No clubbing, No swelling, Back tenderness Integumentary: No rashes, No breakdown Neurological: Normal gait, Normal speech, Normal strength at 5/5 x4 extr Lymphatics: No axilla or inguinal lymphadenopathy Vitals Reviewed Problem list Pyelonephritis Leukocytosis-resolved Acute kidney injury Hyperchloremia Assessment and Plan Nonspecific abdominal pain Acute Bilateral Pyelonephritis Mild Leukocytosis-resolved Monitor CBC Started on IV rocephin 05/08/24 Pain control UA was negative possibly because of recent Cipro therapy, clinically and on imaging, pt with bilat pyelo, abd us and CPK obtained for continued abd pain, n/v 05/08/24, studies negative, s/s improved today 05/09/24 05/10/24 pt with very tender right upper and lower abd. Lab abnormalities resolved - will obtain repeat contrast abd/pelvis CT now Acute kidney injury Hyperchloremia BUN/creatinine 22/1.85, GFR 32, chloride 117, creatinine normalized IV hydration, changed from NS to D5W, will change diet today (05/09/24) Possibly prerenal Monitor electrolytes and replace PRN - normalized and UA clearing lab abnormalities resolving 05/10/24 DVT ppx lovenox Code status: full LOS 2 days
--- NOTE | 2024-05-10 09:13 | RAD REPORT ---
EXAMINATION: CT ABDOMEN AND PELVIS WITH CONTRAST CLINICAL INDICATION: Female, 53 years old.abd pain TECHNIQUE: CT abdomen and pelvis was performed, after the administration of IV contrast, [facility]. Axial, sagittal and coronal reconstructions were obtained. One or more of the following dose reduction techniques were used: Automated exposure control, adjustment of the mA and/o r kV according to patient size, and/or iterative reconstruction. Unless otherwise specified, incidental findings do not require dedicated imaging follow-up. [id number]. COMPARISON: 05/05/2024 FINDINGS: LOWER CHEST: Small right and trace left pleural effusion. Mild intralobular septal thickening.1 LIVER: Low-density lesion in the inferior aspect of the right hepatic lobe has benign imaging feature s. This is not significantly changed. GALLBLADDER/BILE DUCT: No biliary ductal dilatation.? PANCREAS: No significant abnormality. SPLEEN: Normal size. No focal lesion. ADRENALS: Normal; no mass. KIDNEYS AND URETERS: 3 mm calcification in the lower pole right kidney. No hydronephrosis. Trace bila teral urothelial enhancement. Perinephric stranding has improved. The enhancement pattern has also improved from prior. GASTROINTESTINAL TRACT: Stomach is non-dilated. Small bowel has normal course and caliber. No colonic wall thickening or pericolonic inflammatory changes. Moderate stool. PERITONEUM: Trace ascites. LYMPH NODES: No lymphadenopathy. ABDOMINAL AORTA AND OTHER VESSELS: Normal caliber aorta and IVC. URINARY BLADDER: Normal contour. REPRODUCTIVE ORGANS: No pathologic process MUSCULOSKELETAL: No acute or suspicious osseous abnormality. ADDITIONAL FINDINGS: None. IMPRESSION: Perinephric stranding on 05/05/2024 with more normalized enhancement suggests improvement. No hydrone phrosis. No renal abscess. New small right and trace left pleural effusion.
[2024-05-10] MEDS: LACTULOSE 20 GM/30 ML UCUP PO ONE (09:49)
[2024-05-10] MEDS: POTASSIUM CL SA 10 MEQ TAB PO ONE (20:20)
[2024-05-11 06:22] LABS: Absolute Eosinophils 0.3 K/uL (0-0.5); Absolute Lymphocytes (CBC) 3.1 K/uL (0.7-4.9); Absolute Monocytes 0.5 K/uL (0.1-1.3); Absolute Neutrophil 3.4 K/uL (1.8-8.0); Basophils % 0.1 % (0-1.3); Eosinophils % 4.2 % (0-4.4); Hematocrit 28.9 % (36.0-45.0); Hemoglobin 9.7 g/dL (12.0-15.0); Lymphocytes % 42.7 % (15.3-44.8); MCH 31.1 pg (27.0-35.0); MCHC 33.6 g/dL (32.0-36.0); MCV 92.8 fL (80-100); MPV 7.5 fL (7.6-11.3); Monocytes % 6.6 % (3.3-12.3); Neutrophils % 46.4 % (41.7-73.7); Platelets 289 thou/uL (152-406); RBC Red Blood Cell Count 3.12 M/uL (3.86-4.86); Red Cell Distribution Width 13.4 % (12.1-15.2)
[2024-05-11 06:37] LABS: Anion Gap 9.7 mEq/L (5.0-15.0); Magnesium 1.7 mg/dL (1.6-2.4); Phosphorus 4.1 mg/dL (2.5-4.9); Potassium 3.7 mEq/L (3.5-5.1)
[2024-05-11] MEDS: MAGNESIUM SULFATE 1 gm IVPB 1 GM/100 ML BAG IV ONE (08:05)
[2024-05-11] MEDS: POTASSIUM CL SA 10 MEQ TAB PO ONE (08:05)
--- NOTE | 2024-05-11 08:38 | P.DS ---
Admission Date: 05/06/24 Discharge Date: 05/11/24 Reason for Admission: Abdominal Pain , Pyelonephritis Brief History of Present Illness: 53 yrs old with no significant past medical history female brought to ER with abdominal pain which has been going on for the last 1 week. Pain was located in the epigastric region and also diffusely. Has flank pain bilaterally. Denies any fever or chills. Has nausea but no vomiting or diarrhea. Patient has recent ear infection for which she was on ciprofloxacin. Patient also having some dysuria and frequency of micturition. Denies any chest pain or shortness of breath. Patient was assessed in the ER and was found to be having pyelonephritis and acute kidney injury and was admitted for further management. Hospital Course: Ms. Lobo continued to have ear pain (taking Cipro outpatient) and bilateral flank pain with some tenderness to her upper abdomen for several days on Rocephin during her hospitalization. After 48 hours her ear pain resolved but she continued with flank and abdominal pain. Her nausea was relieved and she was able to tolerate a p.o. diet. She did continue with abdominal pain and repeat CT showed improvement of pyelonephritis; however, she did develop some small bilateral pleural effusions from resuscitation. IV fluids discontinued, patient up ambulating, and using I-S. She is improved this morning and stable for discharge on p.o. antibiotics and muscle relaxers. <Yen Winchester - Last Filed: 05/11/24 08:52> Admission Date: 05/06/24 Discharge Date: 05/11/24 Hospital Course: Discharge diagnosis Bilateral acute pyelonephritis without sepsis by unknown etiology, urine culture no growth YIMI associated with #1, resolved Acute musculoskeletal back pain Nonspecific abdominal pain <KENYA Ramirez - Last Filed: 05/11/24 12:37> Disposition: ROUTINE DISCHARGE Discharge Condition: GOOD Vital Signs/Physical Exam: Temp Pulse Resp BP Pulse Ox 97.7 F 60 16 100/52 L 96 05/11/24 04:00 05/11/24 04:00 05/11/24 04:00 05/11/24 04:00 05/11/24 04:00 General: Alert, In no apparent distress, Oriented x3 HEENT: Atraumatic, Normocephalic Neck: Supple Respiratory: Normal air movement Cardiovascular: Normal pulses, Regular rate/rhythm Capillary refill: <2 Seconds Gastrointestinal: Soft and benign, Tenderness (mild to right upper) Musculoskeletal: No clubbing, No swelling Integumentary: No rashes Neurological: Normal speech, Normal tone, Normal affect Lymphatics: No axilla or inguinal lymphadenopathy External genitalia: Deferred Rectal: Deferred Laboratory Data at Discharge: WBC 7.30 thou/uL (4.3-10.9) 05/11/24 05:36 Hgb 9.7 g/dL (12.0-15.0) L 05/11/24 05:36 Hct 28.9 % (36.0-45.0) L 05/11/24 05:36 Plt Count 289 thou/uL (152-406) 05/11/24 05:36 Sodium 144 mEq/L (136-145) 05/11/24 05:36 Potassium 3.7 mEq/L (3.5-5.1) 05/11/24 05:36 BUN 9 mg/dL (7-18) 05/11/24 05:36 Creatinine 0.63 mg/dL (0.55-1.02) 05/11/24 05:36 Glucose 98 mg/dL (74-106) 05/11/24 05:36 Phosphorus 4.1 mg/dL (2.5-4.9) 05/11/24 05:36 Magnesium 1.7 mg/dL (1.6-2.4) 05/11/24 05:36 Total Bilirubin 0.3 mg/dL (0.2-1.0) 05/07/24 04:28 AST 26 U/L (15-37) 05/07/24 04:28 ALT < 14 U/L (13-56) 05/07/24 04:28 Alkaline Phosphatase 65 U/L (45-117) 05/07/24 04:28 Lipase 25 U/L (13-75) 05/05/24 18:49 <Winchester,Yen Claude - Last Filed: 05/11/24 08:52> Vital Signs/Physical Exam: Temp Pulse Resp BP Pulse Ox 98.6 F 64 12 123/70 98 05/11/24 08:00 05/11/24 08:00 05/11/24 08:00 05/11/24 08:00 05/11/24 08:00 Laboratory Data at Discharge: WBC 7.30 thou/uL (4.3-10.9) 05/11/24 05:36 Hgb 9.7 g/dL (12.0-15.0) L 05/11/24 05:36 Hct 28.9 % (36.0-45.0) L 05/11/24 05:36 Plt Count 289 thou/uL (152-406) 05/11/24 05:36 Sodium 144 mEq/L (136-145) 05/11/24 05:36 Potassium 3.7 mEq/L (3.5-5.1) 05/11/24 05:36 BUN 9 mg/dL (7-18) 05/11/24 05:36 Creatinine 0.63 mg/dL (0.55-1.02) 05/11/24 05:36 Glucose 98 mg/dL (74-106) 05/11/24 05:36 Phosphorus 4.1 mg/dL (2.5-4.9) 05/11/24 05:36 Magnesium 1.7 mg/dL (1.6-2.4) 05/11/24 05:36 Total Bilirubin 0.3 mg/dL (0.2-1.0) 05/07/24 04:28 AST 26 U/L (15-37) 05/07/24 04:28 ALT < 14 U/L (13-56) 05/07/24 04:28 Alkaline Phosphatase 65 U/L (45-117) 05/07/24 04:28 Lipase 25 U/L (13-75) 05/05/24 18:49 <KENYA Ramirez - Last Filed: 05/11/24 12:37> Diet: AHA Activity: Ad danisha <Winchester,Yen Claude - Last Filed: 05/11/24 08:52> <KENYA Ramirez - Last Filed: 05/11/24 12:37> Home Medications: Ciprofloxacin HCl [Cipro 500 MG Tablet] 500 mg PO BID 05/06/24 Ibuprofen 800 mg PO Q8HR PRN 05/06/24 Cefpodoxime Proxetil 100 mg PO BID #18 tab 05/11/24 Promethazine Tab [Phenergan] 25 mg PO Q6HP PRN #20 tab 05/11/24 Tizanidine HCl [Zanaflex] 2 mg PO TIDP PRN #21 cap 05/11/24 New Medications: Promethazine Tab [Phenergan] 25 mg PO Q6HP PRN #20 tab PRN Reason: Nausea / Vomiting Cefpodoxime Proxetil 100 mg PO BID #18 tab Tizanidine HCl [Zanaflex] 2 mg PO TIDP PRN #21 cap PRN Reason: Pain Scale 8-10 (Severe) Physician Discharge Instructions: PROBLEM: Pyelonephritis GOAL: Clear understanding of disease process INSTRUCTIONS: Follow up with Primary care Doctor in 1 week, call office for appointment Return to emergency room if symptoms worsen. 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 Diet: AHA Activity: Ad danisha Brief History of Present Illness: 53 yrs old with no significant past medical history female brought to ER with abdominal pain which has been going on for the last 1 week. Pain was located in the epigastric region and also diffusely. Has flank pain bilaterally. Denies any fever or chills. Has nausea but no vomiting or diarrhea. Patient has recent ear infection for which she was on ciprofloxacin. Patient also having some dysuria and frequency of micturition. Denies any chest pain or shortness of breath. Patient was assessed in the ER and was found to be having pyelonephritis and acute kidney injury and was admitted for further management. Hospital Course: Ms. Lobo continued to have ear pain (taking Cipro outpatient) and bilateral flank pain with some tenderness to her upper abdomen for several days on Rocephin during her hospitalization. After 48 hours her ear pain resolved but she continued with flank and abdominal pain. Her nausea was relieved and she was able to tolerate a p.o. diet. Acute kidney injury resolved. She did continue with abdominal pain and repeat CT showed improvement of pyelonephritis; however, she did develop some small bilateral pleural effusions from resu scitation. IV fluids discontinued, patient up ambulating, and using I-S. She is improved this morning and stable for discharge on p.o. antibiotics and muscle relaxers. Followup: Papito See, DO [Primary Care Provider] -
[2024-05-11 09:29] VITALS: BP 123/70; TEMP 98.6
== END 2024-05-11 11:36 | disposition home or self-care (01) | DRG 690 ==
LOC: ER 17:07 → ERHOLD 05-06 01:20 → 2ND 05-06 10:16
PROVIDERS: ADMIT Family Medicine; ATTEND Internal Medicine
DX: N10 Acute pyelonephritis (principal); J91.8 Pleural effusion in other conditions classified elsewhere; N17.9 Acute kidney failure, unspecified; E87.8 Other disorders of electrolyte and fluid balance, not elsewhere classified; F17.210 Nicotine dependence, cigarettes, uncomplicated; Z88.0 Allergy status to penicillin; Z90.710 Acquired absence of both cervix and uterus
CPT/HCPCS: 36415; 74177; 76700; 80048; 80053; 81001; 82550; 82570; 83690; 83735; 84100; 84300; 85025; 87086; 87088; 93005; 94010; 96361; 96374; 96375; 99285; J0696; J1171; J1650; J2003; J2270; J2405; J2550; J3475; J7030; Q9967

== ENCOUNTER 2024-12-26 10:33 | Emergency (ER) | payer OTHER ==
--- OUTSIDE RECORDS SUMMARY | 2024-12-26 10:59 | XMS REPORT | Continuity of Care Document ---
Author Name Unknown Address [address] [place] [address] [facility] Address [address] [place] [address] Care Team Providers Care Director Of Industrial Relations Name Role Phone Bobby Felix ARGUETA Primary Care Physician [phone] Zaida Jiang Attending Clinician Unavail able Papito See Attending Clinician Unavailable ISABELL ANTONIO Attending Clinician Unavail able LUIS PEARSON Attending Clinician Unavailable LUIS PEARSON Attending Clinician Unavailable Kim Callejas DO Attending Clinician [phone] Luis Pearson MD Attending Clinician [phone] ROMINA GILES Attending Clinician Unavailable SANDY SCALES Attending Clinician Unavailab MT Myrick Attending Clinician Unavailable MT RIVERA Attending Clinician Unavailable STEPHANIE TRAN Attending Clinician Unavailab Stephanie Portillo DO Attending Clinician +[phone] Akinsipe WHCNP, Isabell Shay Attending Clinician + ALESIA LECHUGA Attending Clinician Unavailable Everette LEON, Alesia May Attending Clinician + [phone] RICHARDSON LEON Attending Clinician Unavailable DORichardson Attending Clinician +[phone] JOSE GUADALUPE CAMPBELL Attending Clinician Unavaila yaneth Doctor Unassigned, Lee Vining Attending Clinician U siomaraailBRENNA Riley Attending Clinician Unav ailrashid Samuel MD, Brenna Cronin Attending Clinician + MARIA VICTORIA GARCÍA Attending Clinician Unavailab Maria Victoria Renteria MD Attending Clinician [phone] Maggie BARRERA Attending Clinician Unavailable Maggie cShwartz Attending Clinician +[phone] HOANG ALFARO Attending Clinician Unavailable MEHREEN SETHI Attending Clinician Unavailable Mehreen Smith S Attending Clinician [phone] ARIANNE SHAY Attending Clinician Unavailjose Shay MD, Arianne Andrews Attending Clinician +[phone] RONIT SANTIAGO Attending Clinician Unavailab Ronit Lopez Attending Clinician + [phone] DAYANNA HANNON Attending Clinician Unavailable Dayanna Hannon MD Attending Clinician + [phone] DELL NOBLE Attending Clinician Unavailable Dell Noble MD Attending Clinician +[phone] DANIEL JACOBSON Attending Clinician Unavailable Daniel Wylie Attending Clinician +[phone] Jennifer Riley Attending Clinician + [phone] Onur Goldstein MD Attending Clinician +[phone] Glenis Sosa RN Attending Clinician Unavaila CLIVE Douglas Attending Clinician UnavailAtif Botello CNP Attending Clinician +[phone] Clive Martinez Attending Clinician [phone] Delia Perkins RN Attending Clinician Unavailable Tessa Matos RN Attending Clinician Unavailjose Reynolds MD, Isaac Shay Attending Clinician [phone] KIM CALLEJAS Admitting Clinician Unavailab ALESIA Thompson Admitting Clinician Unavailable JOSE GUADALUPE CAMPBELL Admitting Clinician Unavaila BRENNA Mcleod Admitting Clinician Unav ailable SCHRAIZANSTEIN, MARIA VICTORIA Admitting Clinician Unavailab zack SHAY, ARIANNE S Admitting Clinician UnavailDAYANNA Martin S Admitting Clinician Unavailable DELL NOBLE Admitting Clinician Unavailable Onur Goldstein MD Admitting Clinician RICHARDSON LEON Admitting Clinician Unavailable Payers Payer Name Policy Type Policy Number Effective Date Expirati on Date Source [employer] [id number] 2018 00:00:00 Problems Condition Name Condition Details Condition Category Status Onset Date Resolution Date Last Treatment Date Treating Clinician Comments Source Heartburn Heartburn Problem Active 11-05 00:00: 00 [facility] Reduced libido Reduced Libido Problem Active 11-05 00:00: 00 [facility] Gastritis Gastritis Disease Active 08-04 00:00: 00 [facility] Insomnia Insomnia Disease Active 08-04 00:00: 00 [facility] Osteoarthr itis of knee Osteoarthr itis of knee Disease Active 08-04 00:00: 00 [facility] Severe anxiety with panic Severe anxiety with panic Disease Active 17 00:00: 00 [facility] Abdominal pain of unknown etiology Abdominal pain of unknown etiology Disease Active 2022-05 2-22 00:00: 00 [facility] BMI 25.0-25.9, adult BMI 25.0-25.9, adult Disease Active 6-14 00:00: 00 [facility] Positive depression screening Positive depression screening Disease Active 2019-05 1-12 00:00: 00 [facility] Uterine leiomyoma Uterine Leiomyoma Problem Active 07-19 00:00: 00 [facility] Anemia Anemia Problem Active 3 00:00: 00 [facility] S/P hysterecto my S/P hysterecto my Disease Active 07-07 00:00: 00 [facility] Smoker Smoker Disease Active 2012-05 2 00:00: 00 [facility] Well woman exam Well woman exam Disease Active 2012-05 0- 00:00: 00 [facility] Vaginal mass Vaginal mass Problem Active [facility] Tobacco use Tobacco use disorder Problem Active [facility] [id number] Other chronic pain Problem [facility] [id number] Mixed hyperlipid emia Problem [facility] [id number] Neck pain Problem Commo n [facility] [id number] History of gross hematuria Problem [facility] [id number] Recurrent UTI Problem [facility] [id number] Gastroesop hageal reflux disease without esophagiti s Problem [facility] [id number] Cigarette nicotine dependence without complicati on Problem [facility] [id number] Seasonal allergies Problem [facility] [id number] Nephrolith iasis Problem [facility] [id number] Normocytic anemia Problem [facility] History of bilateral tubal ligation History of bilateral tubal ligation Disease Resolve d 6-14 00:00: 00 2023-09-18 00:00:00 2023-09-18 14:42:14 [facility] BMI 25.0-25.9, adult BMI 25.0-25.9, adult Disease Resolve d 6-14 00:00: 00 2023-09-18 00:00:00 2023-09-18 14:41:52 [facility] Enteritis Enteritis Disease Resolve d 2020-05 0-21 00:00: 00 2023-09-18 00:00:00 2023-09-18 14:42:06 [facility] Dysuria Dysuria Disease Resolve d 2019-05 1-12 00:00: 00 2023-09-18 00:00:00 2023-09-18 14:41:[address] [facility] Acute cystitis without hematuria Acute cystitis without hematuria Disease Resolve d 06-10 00:00: 00 2020-04-01 00:00:00 2020-04-01 14:08:[address] [facility] Dyspareuni a Dyspareuni a Disease Resolve d 02-17 00:00: 00 2020-04-01 00:00:00 2020-04-01 14:08:[address] [facility] Uterine fibroid Uterine fibroid Disease Resolve d 07-07 00:00: 00 2015-07-27 00:00:00 2015-07-27 15:21:[address] [facility] Anemia due to chronic blood loss Anemia due to chronic blood loss Disease Resolve d 07-07 00:00: 00 2015-07-27 00:00:00 2015-07-27 15:21:[address] [facility] Abnormal uterine bleeding Abnormal uterine bleeding Disease Resolve d 06-10 00:00: 00 2015-07-27 00:00:00 2015-07-27 15:21:[address] [facility] Enlarged uterus Enlarged uterus Disease Resolve d 02-17 00:00: 00 2015-07-27 00:00:00 2015-07-27 15:21:[address] [facility] Abnormal vaginal bleeding Abnormal vaginal bleeding Disease Resolve d 02-17 00:00: 00 2015-06-10 00:00:00 2015-06-10 13:32:[address] [facility] Urinary tract infection, site not specified Urinary tract infection, site not specified Disease Resolve d 2013-05 0 00:00: 00 2015-06-10 00:00:00 2015-06-10 13:31:[address] [facility] Bacterial vaginosis Bacterial vaginosis Disease Resolve d 2012-05 00:00: 00 2015-06-10 00:00:00 2015-06-10 13:31:[address] [facility] Irregular periods/me nstrual cycles Irregular periods/me nstrual cycles Disease Resolve d 2012-05 00:00: 00 2015-06-10 00:00:00 2015-06-10 13:31:44 [facility] Breast pain Breast pain Disease Resolve d 2012-05 00:00: 00 2013-05-09 00:00:00 2013-05-09 09:50:08 [facility] Urinary tract infection, site not specified Urinary tract infection, site not specified Disease Resolve d 2012-05 00:00: 00 2013-05-09 00:00:00 2013-05-09 09:50:11 [facility] Allergies, Adverse Reactions, Alerts Allergy Name Allergy Type Status Severity Reaction(s) Onset Date Inactive Date Treating Clinician Comments Source NO KNOWN ALLERGIE S Drug Class Active [facility] Social History Social Habit Start Date Stop Date Quantity Comments Source Gender identity [facility] Sexual orientation [facility] History SDOH Alcohol Frequency [facility] History SDOH Alcohol Std Drinks [facility] History SDOH Alcohol Binge [facility] History of tobacco use Cigarette Smoker [facility] Assigned [facility] Alcoholic beverage intake 2023-09-28 00:00:00 2023-09-28 00:00:00 Current drinker of alcohol (finding) [facility] History of Social function 2023-09-18 00:00:00 2023-09-18 00:00:00 [facility] Tobacco use and exposure 2023-09-18 00:00:00 2023-09-18 00:00:00 Smokeless tobacco non-user [facility] Tobacco Comment 2023-09-18 00:00:00 2023-09-18 00:00:00 3-4 cigarretes per day [facility] Cigarettes smoked current (pack per day) - Reported 2023-09-18 00:00:00 2023-09-18 00:00:00 [facility] Cigarette pack-years 2023-09-18 00:00:00 2023-09-18 00:00:00 [facility] Alcohol intake 2023-09-18 00:00:00 2023-09-18 00:00:00 Current drinker of alcohol (finding) [facility] Exposure to SARS-CoV-2 (event) 2022-10-07 00:00:00 2022-10-17 17:31:00 Not sure [facility] Alcohol Comment 2013-03-12 00:00:00 2013-03-12 00:00:00 on occasion [facility] Smoking Status Start Date Stop Date Source Light Tobacco Smoker [facility] Smokes tobacco daily 2023-09-18 00:00:00 [facility] Medications Ordered Medication Name Filled Medication Name Start Date Stop Date Current Medication? Ordering Clinician Indication Dosage Frequency Signature (SIG) Comments Components Source Ondansetron HCl 4 MG Ondansetron HCl 4 MG 10-27 00:00: 00 No 1{table t} QD Ondansetro n HCl 4 MG traMADol HCl 50 MG traMADol HCl 50 MG 10-27 00:00: 00 No 1{table t_as_ne eded} QD traMADol HCl 50 MG Pantoprazol e Sodium 40 MG Pantoprazol e Sodium 40 MG 10-27 00:00: 00 No QD Pantoprazo le Sodium 40 MG Levocetiriz ine Dihydrochlo ride 5 MG Levocetiriz ine Dihydrochlo ride 5 MG 1- 00:00: 00 No 1{table t_in_th e_eveni ng} QD Levocetiri zine Dihydrochl oride 5 MG Flonase Allergy Relief 50 MCG/ACT Flonase Allergy Relief 50 MCG/ACT 2024-0 1-10 00:00: 00 No 1{spray _in_eac h_nostr il} BID Flonase Allergy Relief 50 MCG/ACT ondansetron (ZOFRAN-ODT ) disintegrat ing tablet 4 mg 2023-05 07:15: 00 05-20 06:28 :00 No 4mg 4 mg, Oral, ONCE, 1 dose, On Sun05/20/24 at 0115, [facility] HYDROcodone -acetaminop hen (NORCO) 10-325 mg tablet 1 tablet 2023-05 07:15: 00 05-20 06:28 :00 No 1{tbl} 1 tablet, Oral, ONCE, 1 dose, On Sun05/20/24 at 0115, [facility] methocarbam oL (ROBAXIN) tablet 1,000 mg 2023-05 06:15: 00 05-20 06:28 :00 No 1000mg 1,000 mg, Oral, ONCE, 1 dose, On Sun05/20/24 at 0015, [facility] ketorolac (TORADOL) tablet 10 mg 2023-05 06:15: 00 05-20 06:28 :00 No 10mg 10 mg, Oral, ONCE, 1 dose, On Sun05/20/24 at 0015, [facility] dicyclomine (BENTYL) tablet 20 mg 2023-05 05:30: 00 05-20 06:28 :00 No 20mg 20 mg, Oral, ONCE, 1 dose, On Sun05/19/24 at 2330, [facility] methocarbam oL 500 mg tablet 2023-05 00:00: 00 Yes [id number] 500mg Take 1 tablet by mouth 4 (four) times daily as needed for Pain (scale 7-10). [facility] HYDROcodone -acetaminop hen 5-325 mg tablet 2023-05 00:00: 00 05-28 05:59 :00 No [id number] 1{tbl} Take 1 tablet by mouth every 6 (six) hours as needed for Pain (scale 7-10) for up to 7 days. Indication s: acute pain [facility] neomycin-po lymyxin-hyd rocort 3.5 mg-10,000 unit/mL-1 % ear drops,susp 2023-05 00:00: 00 Yes 4mg/mL- unit/mL -% Torstendavid Harrison Cipro 500 mg tablet 2023-05 00:00: 00 Yes 1mg Torsten Harrison ibuprofen 800 mg tablet 2023-05 00:00: 00 Yes 1mg Torsten Taz Hunter ibuprofen 800 mg tablet 12-09 00:00: 00 Yes [id number] 800mg Take 1 tablet by mouth 3 (three) times daily as needed for Pain (scale 4-6). [facility] methylPREDN ISolone (MEDROL, AUBREE,) 4 mg tablets 12-09 00:00: 00 Yes [id number] Take by mouth SEE-INSTRU CTIONS. follow package directions [facility] loratadine- pseudoephed rine (CLARITIN-D 24 HOUR) 10-240 mg per 24 hr tablet 12-09 00:00: 00 Yes [id number] 1{tbl} Take 1 tablet by mouth in the morning. [facility] amoxicillin 500 mg tablet 12-09 00:00: 00 12-20 04:59 :00 No [id number] 500mg Take 1 tablet by mouth in the morning and 1 tablet in the evening. Do all this for 10 days. [facility] neomycin-po lymyxin-hyd rocort 3.5 mg-10,000 unit/mL-1 % ear drops,susp 11-12 00:00: 00 Yes 4mg/mL- unit/mL -% Torsten Taz Harrison Cipro 500 mg tablet 11-12 00:00: 00 Yes 1mg Torsten Taz Harrison ibuprofen 800 mg tablet 11-12 00:00: 00 Yes 1mg Torsten Harrison ofloxacin 0.3 % ear drops 10-18 00:00: 00 Yes 10% Torsten Taz Harrison Cipro 500 mg tablet 10-18 00:00: 00 Yes 1mg Torsten Taz Harrison cefuroxime axetil 500 mg tablet 10-18 00:00: 00 Yes 1mg Torsten F Hunter ibuprofen 800 mg tablet 10-18 00:00: 00 Yes 1mg Torsten F Hunter ondansetron HCl 4 mg tablet 10-18 00:00: 00 Yes 1mg Torsten F Hunter ibuprofen (IBU) tablet 600 mg 09-28 04:00: 00 09-28 03:54 :00 No 600mg 600 mg, Oral, ONCE, 1 dose, On Sun09/28/23 at 2300, ANCELMO [facility] amoxicillin 875 mg tablet 2024-0 5-10 00:00: 00 10-05 04:59 :00 No [id number] 875mg Take 1 tablet by mouth in the morning and 1 tablet in the evening. Do all this for 7 days. [facility] dicyclomine (BENTYL) injection 20 mg 08-05 00:30: 00 08-05 00:26 :00 No 20mg 20 mg, Intramuscu lar, ONCE NOW, 1 dose, On Sun08/05/23 at 1930, Routine [facility] iopamidol (ISOVUE 370-500 mL) injection 80 mL 08-04 22:15: 00 08-04 22:30 :00 No [id number] 80mL 80 mL, Intravenou s, ONCE, 1 dose, On Sun08/05/23 at 1730, Routine [facility] FENTanyl PF (SUBLIMAZE (PF)) injection 50 mcg 08-04 22:15: 00 08-04 21:38 :00 No 50ug 50 mcg, Slow IV Push, ONCE, 1 dose, On Sun08/05/23 at 1715, Routine [facility] ketorolac (TORADOL) injection 30 mg 08-04 21:45: 00 08-04 20:57 :00 No 30mg 30 mg, Slow IV Push, ONCE, 1 dose, On Sun08/05/23 at 1645, Routine [facility] NaCl 0.9% (NS) bolus infusion 1,000 mL 08-04 21:30: 00 08-04 22:45 :00 No 1000mL at 999 mL/hr, 1,000 mL, IV Infusion, ONCE, 1 dose, On Sun08/05/23 at 1630, ANCELMO [facility] ondansetron (ZOFRAN (PF)) injection 4 mg 08-04 20:45: 00 08-04 20:57 :00 No 4mg 4 mg, Slow IV Push, ONCE, 1 dose, On Sun08/05/23 at 1545, ANCELMO [facility] SERTraline (ZOLOFT) 50 mg tablet 08-04 15:33: 29 08-04 00:00 :00 No 50mg Take 1 tablet by mouth in the morning. [facility] ALPRAZolam 0.25 mg tablet 08-04 15:33: 26 08-04 00:00 :00 No .25mg Take 1 tablet by mouth 2 (two) times daily as needed for Anxiety. [facility] dicyclomine 20 mg tablet 08-04 00:00: 00 09-17 00:00 :00 No [id number] 20mg Take 1 tablet by mouth 4 (four) times daily as needed for Abdominal pain. [facility] neomycin-po lymyxin-hyd rocortisone otic solution 08-04 00:00: 00 08-12 04:59 :00 No [id number] 3[drp] Place 3 Drops in right ear 4 (four) times daily for 7 days. [facility] polyethylen e glycol 3350 17 gram/dose powder 08-04 00:00: 00 08-10 04:59 :00 No [id number] 17g Take 17 g by mouth in the morning for 5 days. [facility] benzonatate 100 mg capsule 05-24 00:00: 00 Yes [id number] 100mg Take 1 capsule by mouth 3 (three) times daily as needed for Cough. [facility] chlorphenir amine 4 mg tablet 05-24 00:00: 00 Yes [id number] 4mg Take 1 tablet by mouth every 6 (six) hours as needed for Allergies or Runny nose. [facility] iopamidol (ISOVUE 370-500 mL) injection 65 mL 2022-05 05:15: 00 05-12 05:15 :00 No [id number] 65mL 65 mL, Intravenou s, ONCE, 1 dose, On Sun05/11/23 at 2315, Routine [facility] NaCl 0.9% (NS) bolus infusion 1,000 mL 2022-05 02:15: 00 05-12 03:45 :00 No 1000mL at 999 mL/hr, 1,000 mL, IV Infusion, ONCE, 1 dose, On Sun05/11/23 at 2015, ANCELMO [facility] morpHINE (4 mg/mL) injection 4 mg 2022-05 01:30: 00 05-12 01:44 :00 No 4mg 4 mg, Slow IV Push, ONCE, 1 dose, On Sun05/11/23 at 1930, STAT [facility] simethicone 80 mg chewable tablet 2022-05 00:00: 00 06-11 05:59 :00 No [id number] 80mg Take 1 tablet by mouth after meals and at bedtime for 30 days. [facility] dicyclomine 20 mg tablet 2022-05 00:00: 00 05-17 05:59 :00 No [id number] 20mg Take 1 tablet by mouth in the morning and 1 tablet in the evening. Do all this for 5 days. [facility] cyclobenzap rine (FLEXERIL) tablet 5 mg 2022-05 01:45: 00 03-07 00:57 :00 No 5mg 5 mg, Oral, ONCE NOW, 1 dose, On Sun03/06/23 at 2045, Routine [facility] ketorolac (TORADOL) injection 30 mg 2022-05 01:45: 00 03-07 00:56 :00 No 30mg 30 mg, Slow IV Push, ONCE, 1 dose, On Sun03/06/23 at 2045, Routine [facility] NaCl 0.9% (NS) bolus infusion 500 mL 2022-05 23:30: 00 03-07 00:57 :00 No 500mL at 999 mL/hr, 500 mL, IV Infusion, ONCE, 1 dose, On Sun03/06/23 at 1830, STAT [facility] acetaminoph en (TYLENOL) tablet 1,000 mg 2022-05 22:00: 00 03-06 23:46 :00 No 1000mg 1,000 mg, Oral, ONCE NOW, 1 dose, On 03/06/23 at 1700, Routine [facility] diphenhydrA MINE (BENADRYL) injection 25 mg 2022-05 21:15: 00 03-06 23:45 :00 No 25mg 25 mg, Slow IV Push, ONCE, 1 dose, On Tu03/06/23 at 1615, STAT [facility] metoclopram kelsie HCl (REGLAN) injection 10 mg 2022-05 21:15: 00 03-06 23:45 :00 No 10mg 10 mg, Slow IV Push, ONCE, 1 dose, On Tu03/06/23 at 1615, [facility] iopamidol (ISOVUE 370-500 mL) injection 70 mL 02-03 19:30: 00 02-03 19:30 :00 No [id number] 70mL 70 mL, Intravenou s, ONCE, 1 dose, On 02/03/23 at 1430, Routine [facility] HYDROcodone -acetaminop hen (NORCO 5) 5-325 mg tablet 1 tablet 02-03 19:15: 00 02-03 19:12 :00 No 1{tbl} 1 tablet, Oral, ONCE, 1 dose, On 02/03/23 at 1415, [facility] ketorolac (TORADOL) injection 30 mg 02-03 19:15: 02-03 18:12 :00 No 30mg 30 mg, Slow IV Push, ONCE, 1 dose, On 02/03/23 at 1415, [facility] NaCl 0.9% (NS) bolus infusion 1,000 mL 02-03 19:00: 00 02-03 19:11 :00 No 1000mL at 999 mL/hr, 1,000 mL, IV Infusion, ONCE, 1 dose, On 02/03/23 at 1400, [facility] ondansetron (ZOFRAN (PF)) injection 4 mg 02-03 18:15: 00 02-03 18:11 :00 No 4mg 4 mg, Slow IV Push, ONCE, 1 dose, On Sun02/03/23 at 1315, [facility] ondansetron 4 mg disintegrat ing tablet 02-03 00:00: 00 08-04 00:00 :00 No [id number] 4mg Take 1 tablet by mouth every 8 (eight) hours as needed for Nausea and Vomiting (N/V). [facility] phenazopyri dine (PYRIDIUM) tablet 200 mg 10-18 01:15: 10-18 01:19 :00 No 200mg 200 mg, Oral, ONCE, 1 dose, On Sun10/17/22 at 2015, [facility] cefTRIAXone (ROCEPHIN) 1,000 mg in NaCl 0.9% (NS) 100 mL MINI-BAG 10-18 01:15: 10-18 01:49 :00 No 1000mg 1,000 mg, IV Piggyback, ONCE, 1 dose, On Sun10/17/22 at 2014, Administer over 30 Minutes, 100 mL
Reas on for Anti-Infec tive: Documented Infection< br>Documen colby Infection Site: Urine
D uration of Therapy: Other (see Comments) [facility] NaCl 0.9% (NS) bolus infusion 1,000 mL 10-18 00:45: 00 10-18 00:54 :00 No 1000mL at 999 mL/hr, 1,000 mL, IV Infusion, ONCE, 1 dose, On Sun10/17/22 at 1945, STAT [facility] ondansetron (ZOFRAN (PF)) injection 4 mg 10-18 00:45: 00 10-17 23:56 :00 No 4mg 4 mg, Slow IV Push, ONCE, 1 dose, On Sun10/17/22 at 1945, [facility] ibuprofen (IBU) tablet 600 mg 10-17 23:45: 00 10-17 23:56 :00 No 600mg 600 mg, Oral, ONCE, 1 dose, On Sun10/17/22 at 1845, ANCELMO [facility] ondansetron 4 mg disintegrat ing tablet 10-17 00:00: 00 Yes [id number] 4mg Take 1 tablet by mouth every 8 (eight) hours as needed for Nausea and Vomiting (N/V). [facility] ibuprofen 600 mg tablet 10-17 00:00: 00 08-04 00:00 :00 No [id number] 600mg Take 1 tablet by mouth every 6 (six) hours as needed for Pain (scale 4-6). [facility] cefdinir 300 mg capsule 10-17 00:00: 00 10-28 04:59 :00 No [id number] 300mg Take 1 capsule by mouth every 12 (twelve) hours for 10 days. [facility] acetaminoph en (TYLENOL) tablet 650 mg 08-06 07:15: 00 08-06 07:18 :00 No 650mg 650 mg, Oral, ONCE, 1 dose, On Sun08/06/22 at 0215, ANCELMO [facility] SERTraline (ZOLOFT) 50 mg tablet 08-06 03:25: 57 Yes 50mg Take 1 tablet by mouth in the morning. [facility] ALPRAZolam 0.25 mg tablet 08-06 03:25: 57 Yes .25mg Take 1 tablet by mouth 2 (two) times daily as needed for Anxiety. [facility] ibuprofen 600 mg tablet 08-06 00:00: 00 08-04 00:00 :00 No [id number] 600mg Take 1 tablet by mouth every 6 (six) hours as needed for Pain (scale 4-6) or Pain (scale 1-3). [facility] acetaminoph en (TYLENOL) tablet 1,000 mg 07-20 09:15: 00 07-20 08:15 :00 No 1000mg 1,000 mg, Oral, ONCE, 1 dose, On Sun07/20/22 at 0315, Routine [facility] maalox:diph enhydrAMINE :lidocaine 2 % viscous 1:1:1 (FIRST-MOUT HWASH BLM) oral suspension 15 mL 07-20 08:15: 00 07-20 08:16 :00 No 15mL 15 mL, Oral, ONCE, 1 dose, On Sun07/20/22 at 0215, Routine [facility] NaCl 0.9% (NS) bolus infusion 1,000 mL 07-20 07:30: 00 07-20 08:14 :00 No 1000mL at 999 mL/hr, 1,000 mL, IV Infusion, ONCE, 1 dose, On Sun07/20/22 at 0130, STAT [facility] ondansetron (ZOFRAN (PF)) injection 4 mg 07-20 06:30: 00 07-20 06:33 :00 No 4mg 4 mg, Slow IV Push, ONCE, 1 dose, [facility]07/20/22 [facility] 0030[facility] 875-125 mg per tablet 07-20 00:00: 00 Yes [id number] 1{tbl} Take 1 tablet by mouth every 12 (twelve) hours. [facility] ondansetron 4 mg disintegrat ing tablet 07-20 00:00: 00 Yes [id number] 4mg Take 1 tablet by mouth every 8 (eight) hours as needed for Nausea and Vomiting (N/V). [facility] phenazopyri dine (PYRIDIUM) tablet 200 mg 05-23 17:15: 00 05-23 17:15 :00 No 200mg 200 mg, Oral, ONCE, 1 dose, [facility] Sun05/23/22 at 1115[facility] mg tablet 05-23 00:00: 00 08-06 00:00 :00 No [id number] 200mg Take 1 tablet by mouth in the morning and 1 tablet at noon and 1 tablet in the evening. [facility] cephALEXin (KEFLEX) 500 mg capsule 1-03 00:00: 00 05-31 05:59 :00 No [id number] 500mg Take 1 capsule by mouth in the morning and 1 capsule at noon and 1 capsule in the evening. Do all this for 7 days. [facility] piperacilli n-tazobacta m (ZOSYN) 3.375 g in NaCl 0.9% (NS) 50 mL MINI-BAG 2021-05 00:00: 00 03-14 00:43 :00 No 3.375g 3.375 g, IV Piggyback, ONCE, 1 dose, On Sun03/13/22 at 1900, Administer over 30 Minutes, 50 mL
Reas on for Anti-Infec tive: Documented Infection< br>Documen colby Infection Site: Abdominal< br>Duratio n of Therapy: 10 days [facility] iopamidol (ISOVUE 370-500 mL) injection 70 mL 2021-05 23:30: 00 03-13 23:30 :00 No [id number] 70mL 70 mL, Intravenou s, ONCE, 1 dose, On 03/13/22 at 1830, Routine [facility] ketorolac (TORADOL) injection 15 mg 2021-05 22:00: 00 03-13 21:33 :00 No 15mg 15 mg, Slow IV Push, ONCE, 1 dose, On Sun03/13/22 at 1700, Routine [facility] amoxicillin -clavulanat e 875-125 mg per tablet 2021-05 00:00: 00 03-24 04:59 :00 No [id number] 1{tbl} Take 1 tablet by mouth every 12 (twelve) hours for 10 days. [facility] ketorolac (TORADOL) injection 30 mg 01-22 03:30: 00 01-22 02:38 :00 No 30mg 30 mg, Slow IV Push, ONCE, 1 dose, On Sun01/21/22 at 2230, Routine [facility] iopamidol (ISOVUE 370-500 mL) injection 60 mL 01-22 02:30: 00 01-22 02:30 :00 No [id number] 60mL 60 mL, Intravenou s, ONCE, 1 dose, On 01/21/22 at 2130, Routine [facility] ondansetron (ZOFRAN (PF)) injection 4 mg 01-22 01:15: 00 01-22 01:15 :00 No 4mg 4 mg, Slow IV Push, ONCE, 1 dose, On 01/21/22 at 2015, ANCELMO [facility] NaCl 0.9% (NS) bolus infusion 500 mL 01-22 01:15: 00 01-22 02:35 :00 No 500mL at 999 mL/hr, 500 mL, IV Infusion, ONCE, 1 dose, On 01/21/22 at 2015, STAT [facility] cefdinir 300 mg capsule 01-21 00:00: 00 08-06 00:00 :00 No [id number] 300mg Take 1 capsule by mouth every 12 (twelve) hours. [facility] ketorolac 10 mg tablet 01-21 00:00: 00 08-06 00:00 :00 No [id number] 10mg Take 1 tablet by mouth every 6 (six) hours as needed for Pain (scale 4-6). [facility] metroNIDAZO LE 500 mg tablet 10-26 00:00: 00 08-06 00:00 :00 No [id number] 500mg Take 1 tablet by mouth 2 (two) times daily. [facility] cefdinir 300 mg capsule 10-26 00:00: 00 11-03 04:59 :00 No [id number] 300mg Take 1 capsule by mouth 2 (two) times daily for 7 days. [facility] doxycycline hyclate 100 mg capsule 08 00:00: 00 11-01 00:00 :00 No [id number] 100mg Take 1 capsule by mouth 2 (two) times daily. [facility] ondansetron 4 mg disintegrat ing tablet 6-08 00:00: 00 11-01 00:00 :00 No [id number] 4mg Take 1 tablet by mouth every 8 (eight) hours as needed for Nausea and Vomiting (N/V). [facility] amoxicillin -clavulanat e 875-125 mg per tablet 2020-05 00:00: 00 11-01 00:00 :00 No [id number] 1{tbl} Take 1 tablet by mouth every 12 (twelve) hours. [facility] ofloxacin 0.3 % otic drops 2020-05 00:00: 00 11-01 00:00 :00 No [id number] 5[drp] Place 5 Drops in right ear 2 (two) times daily. [facility] neomycin-po lymyxin-hyd rocortisone 3.5-10,000- 1 mg/mL-unit/ mL-% otic susp 2020-05 00:00: 00 11-01 00:00 :00 No [id number] 4[drp] Place 4 Drops in right ear 4 (four) times daily. [facility] ciprofloxac in HCl 500 mg tablet 2020-05 00:00: 00 11-01 00:00 :00 No [id number] 500mg Take 1 tablet by mouth 2 (two) times daily. [facility] phenazopyri dine 200 mg tablet 2020-05 00:00: 00 11-01 00:00 :00 No [id number] 200mg Take 1 tablet by mouth 3 (three) times daily. [facility] guaiFENesin (MUCINEX) 600 mg tablet 2020-05 00:00: 00 11-01 00:00 :00 No [id number] 600mg Take 1 tablet by mouth every 12 (twelve) hours. [facility] Kenalog (Triamcinol one) Kenalog (Triamcinol one) 07-15 00:00: 00 No 40mg [facility] Benadryl Benadryl No Benadryl [facility] melatonin melatonin No melatonin [facility] ondansetron HCl 4 mg tablet TAKE 1 TABLET BY MOUTH ONCE DAILY NEEDED ondansetron HCl 4 mg tablet TAKE 1 TABLET BY MOUTH ONCE DAILY NEEDED No ondansetro n HCl 4 mg tablet TAKE 1 TABLET BY MOUTH ONCE DAILY NEEDED [facility] pantoprazol e 40 mg tablet,rosie yed release TAKE 1 TABLET BY MOUTH ONCE DAILY 30 MINUTES TO 1 HOUR BEFORE MORNING MEAL FOR 30 DAYS pantoprazol e 40 mg tablet,rosie yed release TAKE 1 TABLET BY MOUTH ONCE DAILY 30 MINUTES TO 1 HOUR BEFORE MORNING MEAL FOR 30 DAYS No pantoprazo le 40 mg tablet,del ayed release TAKE 1 TABLET BY MOUTH ONCE DAILY 30 MINUTES TO 1 HOUR BEFORE MORNING MEAL FOR 30 DAYS [facility] tramadol 50 mg tablet TAKE 1 TABLET BY MOUTH ONCE DAILY NEEDED tramadol 50 mg tablet TAKE 1 TABLET BY MOUTH ONCE DAILY NEEDED No tramadol 50 mg tablet TAKE 1 TABLET BY MOUTH ONCE DAILY NEEDED [facility] Immunizations Ordered Immunization Name Filled Immunization Name Date Status Comments Source Pneumococcal Polysaccharide, PPSV23 (PNEUMOVAX) 2023-12-10 18:02:00 Completed [facility] Influenza Virus Vaccine Quad IM 3+ YRS 2023-12-10 18:02:00 Completed [facility] Influenza Virus Vaccine Quad IM, Preserv and ABX Free 6 MO-64 YRS (FLUCELVAX) 2023-12-10 18:02:00 Completed [facility] SARS-COV-2 COVID-19 PFIZER VACCINE 2023-12-10 18:02:00 Completed [facility] Pneumococcal Polysaccharide, PPSV23 (PNEUMOVAX) 2023-09-28 22:49:00 Completed [facility] Influenza Virus Vaccine Quad IM 3+ YRS 2023-09-28 22:49:00 Completed [facility] Influenza Virus Vaccine Quad IM, Preserv and ABX Free 6 MO-64 YRS (FLUCELVAX) 2023-09-28 22:49:00 Completed [facility] SARS-COV-2 COVID-19 PFIZER VACCINE 2023-09-28 22:49:00 Completed [facility] Pneumococcal Polysaccharide, PPSV23 (PNEUMOVAX) 2023-09-18 13:15:00 Completed [facility] Influenza Virus Vaccine Quad IM, Preserv and ABX Free 6 MO-64 YRS (FLUCELVAX) 2023-09-18 13:15:00 Completed [facility] SARS-COV-2 COVID-19 PFIZER VACCINE 2023-09-18 13:15:00 Completed [facility] Influenza Virus Vaccine Quad IM 3+ YRS 2023-09-18 13:15:00 Completed [facility] Pneumococcal Polysaccharide, PPSV23 (PNEUMOVAX) 2023-08-05 15:10:00 Completed [facility] Influenza Virus Vaccine Quad IM 3+ YRS 2023-08-05 15:10:00 Completed [facility] Influenza Virus Vaccine Quad IM, Preserv and ABX Free 6 MO-64 YRS (FLUCELVAX) 2023-08-05 15:10:00 Completed [facility] SARS-COV-2 COVID-19 PFIZER VACCINE 2023-08-05 15:10:00 Completed [facility] Pneumococcal Polysaccharide, PPSV23 (PNEUMOVAX) 2023-05-24 19:16:00 Completed [facility] Influenza Virus Vaccine Quad IM 3+ YRS 2023-05-24 19:16:00 Completed [facility] Influenza Virus Vaccine Quad IM, Preserv and ABX Free 6 MO-64 YRS (FLUCELVAX) 2023-05-24 19:16:00 Completed [facility] SARS-COV-2 COVID-19 PFIZER VACCINE 2023-05-24 19:16:00 Completed [facility] Pneumococcal Polysaccharide, PPSV23 (PNEUMOVAX) 2023-05-11 18:59:00 Completed [facility] Influenza Virus Vaccine Quad IM 3+ YRS 2023-05-11 18:59:00 Completed [facility] Influenza Virus Vaccine Quad IM, Preserv and ABX Free 6 MO-64 YRS (FLUCELVAX) 2023-05-11 18:59:00 Completed [facility] SARS-COV-2 COVID-19 PFIZER VACCINE 2023-05-11 18:59:00 Completed [facility] Pneumococcal Polysaccharide, PPSV23 (PNEUMOVAX) 2023-05-11 00:00:00 Completed [facility] Influenza Virus Vaccine Quad IM 3+ YRS 2023-05-11 00:00:00 Completed [facility] Influenza Virus Vaccine Quad IM, Preserv and ABX Free 6 MO-64 YRS (FLUCELVAX) 2023-05-11 00:00:00 Completed [facility] SARS-COV-2 COVID-19 PFIZER VACCINE 2023-05-11 00:00:00 Completed [facility] Pneumococcal Polysaccharide, PPSV23 (PNEUMOVAX) 2023-03-06 14:57:00 Completed [facility] Influenza Virus Vaccine Quad IM 3+ YRS 2023-03-06 14:57:00 Completed [facility] Influenza Virus Vaccine Quad IM, Preserv and ABX Free 6 MO-64 YRS (FLUCELVAX) 2023-03-06 14:57:00 Completed [facility] SARS-COV-2 COVID-19 PFIZER VACCINE 2023-03-06 14:57:00 Completed [facility] Pneumococcal Polysaccharide, PPSV23 (PNEUMOVAX) 2022-08-24 00:00:00 Completed [facility] Influenza Virus Vaccine Quad IM 3+ YRS 2022-08-24 00:00:00 Completed [facility] Influenza Virus Vaccine Quad IM, Preserv and ABX Free 6 MO-64 YRS (FLUCELVAX) 2022-08-24 00:00:00 Completed [facility] SARS-COV-2 COVID-19 PFIZER VACCINE 2022-08-24 00:00:00 Completed [facility] Pneumococcal Polysaccharide, PPSV23 (PNEUMOVAX) 2021-05-16 00:00:00 Completed [facility] Influenza Virus Vaccine Quad IM 3+ YRS 2021-05-16 00:00:00 Completed [facility] Influenza Virus Vaccine Quad IM, Preserv and ABX Free 6 MO-64 YRS (FLUCELVAX) 2021-05-16 00:00:00 Completed [facility] SARS-COV-2 COVID-19 PFIZER VACCINE 2021-05-16 00:00:00 Completed [facility] Influenza Virus Vaccine Quad IM, Preserv and ABX Free 6 MO-64 YRS 2021-03-12 00:00:00 Completed [facility] SARS-COV-2 COVID-19 PFIZER VACCINE 2021-03-12 00:00:00 Completed [facility] Influenza Virus Vaccine Quad IM, Preserv and ABX Free 6 MO-64 YRS 2021-03-12 00:00:00 Completed [facility] SARS-COV-2 COVID-19 PFIZER VACCINE 2021-03-12 00:00:00 Completed [facility] Influenza Virus Vaccine Quad IM, Preserv and ABX Free 6 MO-64 YRS 2021-03-12 00:00:00 Completed [facility] SARS-COV-2 COVID-19 PFIZER VACCINE 2021-03-12 00:00:00 Completed [facility] Influenza Virus Vaccine Quad IM, Preserv and ABX Free 6 MO-64 YRS 2021-03-12 00:00:00 Completed [facility] SARS-COV-2 COVID-19 PFIZER VACCINE 2021-03-12 00:00:00 Completed [facility] Influenza Virus Vaccine Quad IM, Preserv and ABX Free 6 MO-64 YRS 2021-03-12 00:00:00 Completed [facility] SARS-COV-2 COVID-19 PFIZER VACCINE 2021-03-12 00:00:00 Completed [facility] Influenza Virus Vaccine Quad IM, Preserv and ABX Free 6 MO-64 YRS 2021-03-12 00:00:00 Completed [facility] SARS-COV-2 COVID-19 PFIZER VACCINE 2021-03-12 00:00:00 Completed [facility] Influenza Virus Vaccine Quad IM, Preserv and ABX Free 6 MO-64 YRS 2021-03-12 00:00:00 Completed [facility] SARS-COV-2 COVID-19 PFIZER VACCINE 2021-03-12 00:00:00 Completed [facility] Influenza Virus Vaccine Quad IM, Preserv and ABX Free 6 MO-64 YRS 2021-03-12 00:00:00 Completed [facility] SARS-COV-2 COVID-19 PFIZER VACCINE 2021-03-12 00:00:00 Completed [facility] Influenza Virus Vaccine Quad IM, Preserv and ABX Free 6 MO-64 YRS 2021-03-12 00:00:00 Completed [facility] SARS-COV-2 COVID-19 PFIZER VACCINE 2021-03-12 00:00:00 Completed [facility] Influenza Virus Vaccine Quad IM, Preserv and ABX Free 6 MO-64 YRS (FLUCELVAX) 2021-03-12 00:00:00 Completed [facility] SARS-COV-2 COVID-19 PFIZER VACCINE 2021-03-12 00:00:00 Completed [facility] Pneumococcal Polysaccharide, PPSV23 (PNEUMOVAX) 2020-07-29 00:00:00 Completed [facility] Influenza Virus Vaccine Quad IM 3+ YRS 2020-07-29 00:00:00 Completed [facility] Influenza Virus Vaccine Quad .5 mL IM 6+ MO 2020-04-01 00:00:00 Completed [facility] Influenza Virus Vaccine Quad .5 mL IM 6+ MO 2020-04-01 00:00:00 Completed [facility] Influenza Virus Vaccine Quad .5 mL IM 6+ MO 2020-04-01 00:00:00 Completed [facility] Influenza Virus Vaccine Quad .5 mL IM 6+ MO 2020-04-01 00:00:00 Completed [facility] Influenza Virus Vaccine Quad .5 mL IM 6+ MO 2020-04-01 00:00:00 Completed [facility] Influenza Virus Vaccine Quad .5 mL IM 6+ MO 2020-04-01 00:00:00 Completed [facility] Influenza Virus Vaccine Quad .5 mL IM 6+ MO 2020-04-01 00:00:00 Completed [facility] Influenza Virus Vaccine Quad .5 mL IM 6+ MO 2020-04-01 00:00:00 Completed [facility] Influenza Virus Vaccine Quad .5 mL IM 6+ MO 2020-04-01 00:00:00 Completed [facility] Influenza Virus Vaccine Quad .5 mL IM 6+ MO (FLUZONE/FLULAVAL/F LUARIX) 2020-04-01 00:00:00 Completed [facility] Influenza Virus Vaccine Quad .5 mL IM 6+ MO (FLUZONE/FLULAVAL/F LUARIX) 2020-04-01 00:00:00 Completed [facility] Kenalog (Triamcinolone) Kenalog (Triamcinolone) 2019-07-29 11:43:00 Completed [facility] Kenalog (Triamcinolone) Kenalog (Triamcinolone) 2018-07-15 11:45:00 Completed [facility] Afluria Afluria 2018-06-19 10:52:00 Completed [facility] Afluria Afluria 2018-06-19 00:00:00 Completed [facility] Pneumococcal Polysaccharide, PPSV23 (PNEUMOVAX) 2015-07-09 00:00:00 Completed [facility] Influenza Virus Vaccine Quad IM 3+ YRS 2015-07-09 00:00:00 Completed [facility] Pneumococcal Polysaccharide, PPSV23 (PNEUMOVAX) 2015-07-09 00:00:00 Completed [facility] Influenza Virus Vaccine Quad IM 3+ YRS 2015-07-09 00:00:00 Completed [facility] Pneumococcal Polysaccharide, PPSV23 (PNEUMOVAX) 2015-07-09 00:00:00 Completed [facility] Influenza Virus Vaccine Quad IM 3+ YRS 2015-07-09 00:00:00 Completed [facility] Pneumococcal Polysaccharide, PPSV23 (PNEUMOVAX) 2015-07-09 00:00:00 Completed [facility] Influenza Virus Vaccine Quad IM 3+ YRS 2015-07-09 00:00:00 Completed [facility] Pneumococcal Polysaccharide, PPSV23 (PNEUMOVAX) 2015-07-09 00:00:00 Completed [facility] Influenza Virus Vaccine Quad IM 3+ YRS 2015-07-09 00:00:00 Completed [facility] Pneumococcal Polysaccharide, PPSV23 (PNEUMOVAX) 2015-07-09 00:00:00 Completed [facility] Influenza Virus Vaccine Quad IM 3+ YRS 2015-07-09 00:00:00 Completed [facility] Pneumococcal Polysaccharide, PPSV23 (PNEUMOVAX) 2015-07-09 00:00:00 Completed [facility] Influenza Virus Vaccine Quad IM 3+ YRS 2015-07-09 00:00:00 Completed [facility] Pneumococcal Polysaccharide, PPSV23 (PNEUMOVAX) 2015-07-09 00:00:00 Completed [facility] Influenza Virus Vaccine Quad IM 3+ YRS 2015-07-09 00:00:00 Completed [facility] Pneumococcal Polysaccharide, PPSV23 (PNEUMOVAX) 2015-07-09 00:00:00 Completed [facility] Influenza Virus Vaccine Quad IM 3+ YRS 2015-07-09 00:00:00 Completed [facility] Pneumococcal Polysaccharide, PPSV23 (PNEUMOVAX) 2015-07-09 00:00:00 Completed [facility] Influenza Virus Vaccine Quad IM 3+ YRS 2015-07-09 00:00:00 Completed [facility] Boostrix (Tdap) Boostrix (Tdap) Unknown Completed [facility] Vital Signs Vital Name Observation Time Observation Value Comments S ource Height 2024-11-05 00:00:00 62 [in_i] [facility] Systolic 2024-11-05 00:00:00 107 mm[Hg] [facility] BP Diastolic 2024-11-05 00:00:00 66 mm[Hg] [facility] height 2024-10-27 15:15:00 62 [in_i] Commo n [facility] weight 2024-10-27 15:15:00 123.4 [lb_av] Co mmon [facility] temperature 2024-10-27 15:15:00 97.9 [degF] Com mon [facility] bmi 2024-10-27 15:15:00 22.57 kg/m2 Comm on [facility] oximetry 2024-10-27 15:15:00 98 % Commo n [facility] respiratory rate 2024-10-27 15:15:00 16 /min [facility] blood pressure systolic 2024-10-27 15:15:00 122 mm[Hg[facility] blood pressure diastolic 2024-10-27 15:15:00 60 mm[Hg] [facility] height 2024-08-21 09:30:00 62 [in_i] Commo n [facility] weight 2024-08-21 09:30:00 121.8 [lb_av] Co mmon [facility] temperature 2024-08-21 09:30:00 97.7 [degF] Com mon [facility] bmi 2024-08-21 09:30:00 22.28 kg/m2 Comm on [facility] oximetry 2024-08-21 09:30:00 99 % Commo n [facility] respiratory rate 2024-08-21 09:30:00 18 /min Common [facility] blood pressure systolic 2024-08-21 09:30:00 136 mm[Hg] [facility] blood pressure diastolic 2024-08-21 09:30:00 80 mm[Hg] [facility] height 2024-07-25 14:30:00 62 [in_i] Commo n [facility] weight 2024-07-25 14:30:00 121 [lb_av] Comm on [facility] temperature 2024-07-25 14:30:00 97.7 [degF] Com mon [facility] bmi 2024-07-25 14:30:00 22.13 kg/m2 Comm on [facility] oximetry 2024-07-25 14:30:00 96 % Commo n [facility] blood pressure systolic 2024-07-25 14:30:00 98 mm[Hg] [facility] blood pressure diastolic 2024-07-25 14:30:00 60 mm[Hg] Common [facility] height 2024-07-10 14:30:00 62 [in_i] Commo n [facility] weight 2024-07-10 14:30:00 121.6 [lb_av] Co mmon [facility] temperature 2024-07-10 14:30:00 98.0 [degF] Com [facility] bmi 2024-07-10 14:30:00 22.24 kg/m2 Comm on [facility] oximetry 2024-07-10 14:30:00 97 % Commo n [facility] respiratory rate 2024-07-10 14:30:00 16 /min Common [facility] blood pressure systolic 2024-07-10 14:30:00 110 mm[Hg] Common [facility] blood pressure diastolic 2024-07-10 14:30:00 58 mm[Hg] [facility] height 2024-05-30 13:15:00 62 [in_i] Commo n [facility] weight 2024-05-30 13:15:00 116 [lb_av] Comm on [facility] temperature 2024-05-30 13:15:00 97.8 [degF] Com mon [facility] bmi 2024-05-30 13:15:00 21.21 kg/m2 Comm on [facility] oximetry 2024-05-30 13:15:00 97 % Commo n [facility] blood pressure systolic 2024-05-30 13:15:00 112 mm[Hg] [facility] blood pressure diastolic 2024-05-30 13:15:00 60 mm[Hg] [facility] Systolic blood pressure 2024-05-20 06:28:00 118 mm[Hg] [facility] Diastolic blood pressure 2024-05-20 06:28:00 75 mm[Hg] [facility] Heart rate 2024-05-20 06:28:00 63 /min [facility] 2024-05-20 06:28:00 37.06 Laura [facility] Respiratory rate 2024-05-20 06:28:00 15 /min [facility] Oxygen saturation in Arterial blood by Pulse oximetry 2024-05-20 06:28:00 100 /min [facility] Body height 2024-05-20 01:33:[address] [facility] Body weight 2024-05-20 01:33:[address] [facility] BMI 2024-05-20 01:33:00 22.17 kg/m2 [facility] Systolic blood pressure 2023-12-10 23:00:00 118 mm[Hg] [facility] Diastolic blood pressure 2023-12-10 23:00:00 77 mm[Hg] [facility] Heart rate 2023-12-10 23:00:00 70 /min [facility] Body temperature 2023-12-10 23:00:00 37.5 Laura [facility] Respiratory rate 2023-12-10 23:00:00 18 /min [facility] Body height 2023-12-10 23:00:00 157.5 cm Univ [facility] Body weight 2023-12-10 23:00:[address] [facility] BMI 2023-12-10 23:00:00 23.78 kg/m2 [facility] Oxygen saturation in Arterial blood by Pulse oximetry 2023-12-10 23:00:00 100 /min [facility] Systolic blood pressure 2023-09-29 03:43:00 119 mm[Hg] [facility] Diastolic blood pressure 2023-09-29 03:43:00 79 mm[Hg] [facility] Heart rate 2023-09-29 03:43:00 72 /min [facility] Body temperature 2023-09-29 03:43:00 37.17 Laura [facility] Respiratory rate 2023-09-29 03:43:00 18 /min [facility] Body height 2023-09-29 03:43:00 157.5 cm [facility] Body weight 2023-09-29 03:43:[address] [facility] BMI 2023-09-29 03:43:00 23.78 kg/m2 [facility] Oxygen saturation in Arterial blood by Pulse oximetry 2023-09-29 03:43:00 99 /min [facility] Systolic blood pressure 2023-09-18 18:26:00 118 mm[Hg] [facility] Diastolic blood pressure 2023-09-18 18:26:00 73 mm[Hg] [facility] Heart rate 2023-09-18 18:26:00 71 /min [facility] Body temperature 2023-09-18 18:26:00 36.61 Laura [facility] Respiratory rate 2023-09-18 18:26:00 18 /min [facility] Body height 2023-09-18 18:26:[address] [facility] Body weight 2023-09-18 18:26:[address] [facility] BMI 2023-09-18 18:26:00 23.08 kg/m2 [facility] Systolic blood pressure 2023-08-06 00:30:00 112 mm[Hg] [facility] Diastolic blood pressure 2023-08-06 00:30:00 67 mm[Hg] [facility] Heart rate 2023-08-06 00:30:00 64 /min [facility] Respiratory rate 2023-08-06 00:30:00 19 /min [facility] Oxygen saturation in Arterial blood by Pulse oximetry 2023-08-06 00:30:00 94 /min [facility] Body temperature 2023-08-05 20:08:00 36.72 Laura [facility] Body height 2023-08-05 20:08:[address] [facility] Body weight 2023-08-05 20:08:[address] [facility] BMI 2023-08-05 20:08:00 21.95 kg/m2 [facility] Systolic blood pressure 2023-05-25 01:09:00 129 mm[Hg] [facility] Diastolic blood pressure 2023-05-25 01:09:00 80 mm[Hg] [facility] Heart rate 2023-05-25 01:09:00 73 /min Un[facility] Body temperature 2023-05-25 01:09:00 36.72 Laura [facility] Respiratory rate 2023-05-25 01:09:00 18 /min [facility] Body height 2023-05-25 01:09:00 152.4 cm Univ [facility] Body weight 2023-05-25 01:09:[address] [facility] BMI 2023-05-25 01:09:00 25.39 kg/m2 [facility] Oxygen saturation in Arterial blood by Pulse oximetry 2023-05-25 01:09:00 100 /min [facility] Systolic blood pressure 2023-05-12 05:30:00 96 mm[Hg] [facility] Diastolic blood pressure 2023-05-12 05:30:00 66 mm[Hg] [facility] Heart rate 2023-05-12 05:30:00 59 /min Un[facility] Respiratory rate 2023-05-12 05:30:00 17 /min [facility] Oxygen saturation in Arterial blood by Pulse oximetry 2023-05-12 05:30:00 97 /min [facility] Body temperature 2023-05-12 00:56:00 37.22 Laura [facility] Systolic blood pressure 2023-03-07 02:30:00 135 mm[Hg] [facility] Diastolic blood pressure 2023-03-07 02:30:00 84 mm[Hg] [facility] Heart rate 2023-03-07 02:30:00 61 /min Unive [facility] Body temperature 2023-03-07 02:30:00 36.67 Laura [facility] Respiratory rate 2023-03-07 02:30:00 18 /min [facility] Oxygen saturation in Arterial blood by Pulse oximetry 2023-03-07 02:30:00 97 /min [facility] Body height 2023-03-06 19:55:[address] [facility] Body weight 2023-03-06 19:55:[address] [facility] BMI 2023-03-06 19:55:00 23.44 kg/m2 [facility] Systolic blood pressure 2023-02-03 19:12:00 109 mm[Hg] [facility] Diastolic blood pressure 2023-02-03 19:12:00 67 mm[Hg] [facility] Heart rate 2023-02-03 19:12:00 66 /min Unive [facility] Respiratory rate 2023-02-03 19:12:00 10 /min [facility] Oxygen saturation in Arterial blood by Pulse oximetry 2023-02-03 19:12:00 99 /min [facility] Body temperature 2023-02-03 17:51:00 37.28 Laura [facility] Body height 2023-02-03 17:51:[address] [facility] Body weight 2023-02-03 17:51:[address] [facility] BMI 2023-02-03 17:51:00 23.44 kg/m2 [facility] Systolic blood pressure 2022-10-18 02:25:00 99 mm[Hg] [facility] Diastolic blood pressure 2022-10-18 02:25:00 60 mm[Hg] [facility] Heart rate 2022-10-18 02:25:00 58 /min Unive [facility] Respiratory rate 2022-10-18 02:25:00 16 /min [facility] Oxygen saturation in Arterial blood by Pulse oximetry 2022-10-18 02:25:00 96 /min [facility] Body temperature 2022-10-17 22:33:00 37 Laura [facility] Body height 2022-10-17 22:33:[address] [facility] Body weight 2022-10-17 22:33:[address] [facility] BMI 2022-10-17 22:33:00 25.23 kg/m2 [facility] Systolic blood pressure 2022-08-06 06:45:00 161 mm[Hg] [facility] Diastolic blood pressure 2022-08-06 06:45:00 98 mm[Hg] [facility] Heart rate 2022-08-06 06:45:00 124 /min [facility] Body temperature 2022-08-06 06:45:00 37.22 Laura [facility] Respiratory rate 2022-08-06 06:45:00 16 /min [facility] Body height 2022-08-06 06:45:[address] [facility] Body weight 2022-08-06 06:45:00 58.968 kg Univ [facility] BMI 2022-08-06 06:45:00 23.78 kg/m2 Univ [facility] Oxygen saturation in Arterial blood by Pulse oximetry 2022-08-06 06:45:00 99 /min [facility] Systolic blood pressure 2022-07-20 07:06:00 116 mm[Hg] [facility] Diastolic blood pressure 2022-07-20 07:06:00 72 mm[Hg] [facility] Heart rate 2022-07-20 07:06:00 68 /min Unive [facility] Body temperature 2022-07-20 07:06:00 36.78 Laura [facility] Respiratory rate 2022-07-20 07:06:00 16 /min [facility] Body weight 2022-07-20 07:06:00 61.236 kg Univ [facility] BMI 2022-07-20 07:06:00 24.69 kg/m2 [facility] Oxygen saturation in Arterial blood by Pulse oximetry 2022-07-20 07:06:00 99 /min [facility] Systolic blood pressure 2022-05-23 16:16:00 112 mm[Hg] [facility] Diastolic blood pressure 2022-05-23 16:16:00 78 mm[Hg] [facility] Heart rate 2022-05-23 16:16:00 76 /min Unive [facility] Body temperature 2022-05-23 16:16:00 37.11 Laura [facility] Respiratory rate 2022-05-23 16:16:00 20 /min [facility] Body height 2022-05-23 16:16:00 157.5 cm Univ [facility] Body weight 2022-05-23 16:16:00 58.968 kg Univ [facility] BMI 2022-05-23 16:16:00 23.78 kg/m2 Univ [facility] Oxygen saturation in Arterial blood by Pulse oximetry 2022-05-23 16:16:00 98 /min [facility] Systolic blood pressure 2022-03-14 00:39:00 108 mm[Hg] [facility] Diastolic blood pressure 2022-03-14 00:39:00 72 mm[Hg] [facility] Heart rate 2022-03-14 00:39:00 71 /min Unive [facility] Respiratory rate 2022-03-14 00:39:00 21 /min [facility] Oxygen saturation in Arterial blood by Pulse oximetry 2022-03-14 00:39:00 97 /min [facility] Body temperature 2022-03-13 20:20:00 37 Laura [facility] Body height 2022-03-13 20:20:00 165.1 cm Univ [facility] Body weight 2022-03-13 20:20:[address] [facility] BMI 2022-03-13 20:20:00 21.63 kg/m2 Univ [facility] Systolic blood pressure 2022-01-22 02:49:00 115 mm[Hg] [facility] Diastolic blood pressure 2022-01-22 02:49:00 77 mm[Hg] [facility] Heart rate 2022-01-22 02:49:00 74 /min Unive [facility] Respiratory rate 2022-01-22 02:49:00 16 /min [facility] Oxygen saturation in Arterial blood by Pulse oximetry 2022-01-22 02:49:00 99 /min [facility] Body temperature 2022-01-22 00:43:00 36.39 Laura [facility] Body weight 2022-01-22 00:43:[address] [facility] BMI 2022-01-22 00:43:00 25.39 kg/m2 Univ [facility] Diastolic blood pressure 2021-11-01 20:30:00 66 mm[Hg] [facility] Heart rate 2021-11-01 20:30:00 62 /min Unive [facility] Body temperature 2021-11-01 20:30:00 36.33 Laura [facility] Respiratory rate 2021-11-01 20:30:00 16 /min [facility] Body height 2021-11-01 20:30:[address] [facility] Body weight 2021-11-01 20:30:[address] [facility] BMI 2021-11-01 20:30:00 25.19 kg/m2 [facility] Systolic blood pressure 2021-11-01 20:30:00 117 mm[Hg] [place] [facility] height 2020-05-06 11:20:00 60 [in_i] Commo n [facility] weight 2020-05-06 11:20:00 120 [lb_av] Comm on [facility] temperature 2020-05-06 11:20:00 98.5 [degF] Com [facility] bmi 2020-05-06 11:20:00 23.43 kg/m2 Comm on [facility] blood pressure systolic 2020-05-06 11:20:00 125 mm[Hg] [facility] blood pressure diastolic 2020-05-06 11:20:00 78 mm[Hg] Common [facility] height 2018-09-26 11:15:00 60 [in_i] Commo n [facility] weight 2018-09-26 11:15:00 120.2 [lb_av] Co mmon [facility] temperature 2018-09-26 11:15:00 98.7 [degF] Com [facility] bmi 2018-09-26 11:15:00 23.47 kg/m2 Comm on [facility] oximetry 2018-09-26 11:15:00 100 % Commo n [facility] respiratory rate 2018-09-26 11:15:00 17 /min Common [facility] blood pressure systolic 2018-09-26 11:15:00 113 mm[Hg] [facility] blood pressure diastolic 2018-09-26 11:15:00 56 mm[Hg] Common [facility] BP Systolic 2024-05-01 15:19:00 110 mm[Hg] Step hen F Hunter BP Diastolic 2024-05-01 15:19:00 84 mm[Hg] Abad phen F Hunter Weight Measured 2024-05-01 15:19:00 115.00 pounds Torsten F Hunter Height Measured 2024-05-01 15:19:00 59.70 inches Torsten F Hunter Body Temperature 2024-05-01 15:19:00 98.70 degrees Torsten F Hunter Heart Rate 2024-05-01 15:19:00 71.00 /min Tata en F Hunter Respiratory Rate 2024-05-01 15:19:00 18.00 /min Torsten F Hunter Heart Rate 2023-11-13 17:45:00 74.00 /min Tata en F Hunter Respiratory Rate 2023-11-13 17:45:00 Torsten F Hunter BP Systolic 2023-11-13 17:45:00 106 mm[Hg] Step hen F Hunter BP Diastolic 2023-11-13 17:45:00 64 mm[Hg] Abad phen F Hunter Weight Measured 2023-11-13 17:45:00 126.00 pounds Torsten F Hunter Height Measured 2023-11-13 17:45:00 59.70 inches Torsten F Hunter Body Temperature 2023-11-13 17:45:00 97.90 degrees Torsten F Hunter BP Systolic 2023-10-18 15:45:00 100 mm[Hg] Step hen F Hunter BP Diastolic 2023-10-18 15:45:00 63 mm[Hg] Abad phen F Hunter Weight Measured 2023-10-18 15:45:00 128.00 pounds Torsten F Hunter Height Measured 2023-10-18 15:45:00 59.70 inches Torsten F Hunter Body Temperature 2023-10-18 15:45:00 98.40 degrees Torsten F Hunter Heart Rate 2023-10-18 15:45:00 74.00 /min Tata en F Hunter Respiratory Rate 2023-10-18 15:45:00 17.00 /min Torsten F Hunter Procedures Procedure Date / Time Performed Performing Clinician Source MAMMO, screening, digital, bilateral 2024-11-05 00:00:00 [facility] PVR 2024-08-21 00:00:00 [facility] CT ABDOMEN PELVIS WO CONTRAST 2024-05-20 04:30:49 Kim Callejas [facility] URINALYSIS 2024-05-20 04:23:00 Kim Callejas [facility] BASIC METABOLIC PANEL (NA, K, CL, CO2, GLUCOSE, BUN, CREATININE, CA) 2024-05-20 03:28:00 Kim Callejas [facility] XR CHEST 1 VW 2024-05-20 02:05:09 Kim Callejas [facility] POCT URINALYSIS 2023-09-18 18:36:00 Isabell Antonio [facility] CT ABDOMEN PELVIS W CONTRAST 2023-08-05 22:17:16 Alesia Lechuga [facility] COMP. METABOLIC PANEL (87137) 2023-08-05 20:54:00 Alesia Lechuga [facility] CBC WITH DIFF 2023-08-05 20:54:00 Alesia Lechuga [facility] URINALYSIS 2023-08-05 20:14:[address] [facility] CONSENT/REFUSAL FOR DIAGNOSIS AND TREATMENT 2023-08-05 20:02:14 Doctor Unassigned, [place] [facility] URINALYSIS 2023-05-25 01:18:00 Richardson Leon [facility] RAPID INFLUENZA A/B 2023-05-25 01:18:00 Paula Leon [facility] COVID-19 (ID NOW RAPID TESTING) 2023-05-25 01:18:00 Richardson Leon [facility] CONSENT/REFUSAL FOR DIAGNOSIS AND TREATMENT 2023-05-25 00:58:09 Doctor Unassigned, [place] [facility] CT ABDOMEN PELVIS W CONTRAST 2023-05-12 04:27:58 Jose Guadalupe Campbell [facility] AC PANEL 21 + LACTIC ACID 2023-05-12 01:50:00 Jose Guadalupe Campbell [facility] LIPASE 2023-05-12 01:43:00 Jose Guadalupe Campbell [facility] HEPATIC FUNCTION PANEL (41296) (ALB,T.PRO,BILI T,BU/BC,ALT,AST,ALK PHOS) 2023-05-12 01:43:00 Shannan [facility] BASIC METABOLIC PANEL (NA, K, CL, CO2, GLUCOSE, BUN, CREATININE, CA) 2023-05-12 01:43:00 Shannan [facility] CBC WITH DIFF 2023-05-12 01:43:00 Shannan [facility] URINALYSIS 2023-05-12 01:43:00 Jose Guadalupe Campbell U [facility] NOTICE OF PRIVACY PRACTICES 2023-05-12 00:47:32 Doctor Unassigned, [place] [facility] CONSENT/REFUSAL FOR DIAGNOSIS AND TREATMENT 2023-05-12 00:47:02 Doctor Unassigned, [place] [facility] CT HEAD WO CONTRAST 2023-03-06 21:50:00 Brenna Romero [facility] ASSIGNMENT OF BENEFITS 2023-03-06 21:20:15 Docto r Unassigned, [place] [facility] CONSENT/REFUSAL FOR DIAGNOSIS AND TREATMENT 2023-03-06 19:45:09 Doctor Unassigned, [place] [facility] CT ABDOMEN PELVIS W CONTRAST 2023-02-03 18:23:00 Maria Victoria García [facility] LIPASE 2023-02-03 18:02:00 Maria Victoria García [facility] COMP. METABOLIC PANEL ([id number]) 2023-02-03 18:02:00 Maria Victoria García [facility] CBC WITH DIFF 2023-02-03 18:02:00 Maria Victoria García U [facility] URINALYSIS 2023-02-03 18:02:00 Maria Victoria García [facility] CONSENT/REFUSAL FOR DIAGNOSIS AND TREATMENT 2023-02-03 17:46:56 Doctor Unassigned, [place] [facility] RAPID STREP SCREEN FOR GROUP A 2022-10-17 23:55:00 Maggie Barrera [facility] RAPID INFLUENZA A/B 2022-10-17 23:55:00 Maggie Barrera [facility] COVID-19 (ID NOW RAPID TESTING) 2022-10-17 23:55:00 Maggie Barrera [facility] URINALYSIS 2022-10-17 22:49:00 Stephanei Tran [facility] CONSENT/REFUSAL FOR DIAGNOSIS AND TREATMENT 2022-10-17 22:26:18 Doctor Unassigned, [place] [facility] ED SPLINT APPLICATION 2022-08-06 07:55:17 Rosa Lechuga [facility] CONSENT/REFUSAL FOR DIAGNOSIS AND TREATMENT 2022-08-06 06:39:48 Doctor Unassigned, [place] [facility] COMP. METABOLIC PANEL ([id number]) 2022-07-20 06:32:00 Mehreen Sethi [facility] CBC WITH DIFF 2022-07-20 06:32:00 Mehreen Sethi [facility] URINALYSIS 2022-07-20 06:32:00 Mehreen Sethi [facility] RAPID INFLUENZA A/B 2022-07-20 06:32:00 Mehreen Sethi [facility] COVID-19 (ID NOW RAPID TESTING) 2022-07-20 06:32:00 Mehreen Sethi [facility] CONSENT/REFUSAL FOR DIAGNOSIS AND TREATMENT 2022-07-20 05:24:16 Doctor Unassigned, [place] [facility] URINALYSIS 2022-05-23 17:09:00 Richardson Leon [facility] CONSENT/REFUSAL FOR DIAGNOSIS AND TREATMENT 2022-05-23 16:02:43 Doctor Unassigned, [place] [facility] CT ABDOMEN PELVIS W CONTRAST 2022-03-13 22:32:00 Arianne Shay [facility] LIPASE 2022-03-13 21:32:00 Arianne Shay [facility] HEPATIC FUNCTION PANEL ([id number]) (ALB,T.PRO,BILI T,BU/BC,ALT,AST,ALK PHOS) 2022-03-13 21:32:00 Arianne Shay [facility] BASIC METABOLIC PANEL (NA, K, CL, CO2, GLUCOSE, BUN, CREATININE, CA) 2022-03-13 21:32:00 Arianne Shay [facility] CBC WITH DIFF 2022-03-13 21:32:00 [facility] 2022-03-13 20:25:00 Richardson Leon [facility] CONSENT/REFUSAL FOR DIAGNOSIS AND TREATMENT 2022-03-13 19:50:11 Doctor Unassigned, [place] [facility] CT ABDOMEN PELVIS W CONTRAST 2022-01-22 01:34:54 Brenna Samuel [facility] LIPASE 2022-01-22 01:17:00 Brenna Samuel [facility] COMP. METABOLIC PANEL ([id number]) 2022-01-22 01:17:00 Brenna Samuel [facility] CBC WITH DIFF 2022-01-22 01:17:00 Brenna Samuel [facility] URINALYSIS 2022-01-22 00:50:00 Brenna Samuel [facility] NOTICE OF PRIVACY PRACTICES 2022-01-22 00:38:08 Doctor Unassigned, [place] [facility] CONSENT/REFUSAL FOR DIAGNOSIS AND TREATMENT 2022-01-22 00:36:29 Doctor Unassigned, [place] [facility] PAP SMEAR-LIQUID BASED-CP 2021-11-01 21:11:00 Ronit Santiago [facility] Hysterectomy [facility] Encoun[facility] Start Date/Time End Date/Time Encounter Type Admission Type Attending Clinicians Care Facility Care Department Encounter ID Source 2024-07-08 13:40:00 Outpatient Zaida Jiang [facility] [id number] [facility] 2024-05-30 14:03:00 Outpatient aZida Jiang [facility] [id number] [facility] 2024-05-29 16:04:00 [facility] [id number] [facility] 2021-06-15 12:14:07 [facility] [id number] [facility] 2021-06-15 11:33:20 [facility] [id number] [facility] 2021-06-15 11:29:10 [facility] [id number] [facility] 2021-06-15 11:27:31 [facility] [id number] [facility] 2021-06-15 11:27:13 [facility] [id number] [facility] 2021-06-15 11:12:57 [facility] [id number] [facility] 2021-03-22 08:37:29 Emergency [facility] [id number] [facility] 2021-03-21 10:37:33 Emergency [facility] [id number] [facility] 2021-03-20 21:58:58 Emergency [facility] [id number] [facility] 2021-03-20 11:47:40 Emergency [facility] [id number] [facility] 2021-03-20 05:05:20 Emergency [facility] [id number] [facility] 2021-03-19 21:53:05 Emergency [facility] [id number] [facility] 2021-03-19 11:06:33 Emergency [facility] [id number] [facility] 2021-03-18 20:23:30 Emergency [facility] [id number] [facility] 2021-03-18 03:19:07 Emergency [facility] [id number] [facility] 2021-03-17 13:12:53 Emergency [facility] [id number] [facility] 2024-11-05 00:00:00 2024-11-05 00:00:00 ELLIE Torrez: [address], [place] [address] , Ph. [facility] - [id number]_[place] brooklynn Taylor* [id number] [facility] 2024-10-27 00:00:00 2024-10-27 00:00:00 (ESTPT) Establishe d Patient STLMLC STLMLC [id number] [facility] 2024-09-17 15:00:00 2024-09-17 15:00:00 Outpatient R ISABELL ANTONIO [facility] [id number] [facility] 2024-08-21 00:00:00 2024-08-21 00:00:00 OFFICE VISIT NEW PT LEVEL 3 STLMLC STLMLC [id number] [facility] 2024-08-14 00:00:00 2024-08-14 00:00:00 OFFICE VISIT ESTAB PT LEVEL 3 STLMLC STLMLC [id number] [facility] 2024-08-14 00:00:00 2024-08-14 00:00:00 (TEL) STLMLC STLMLC [id number] [facility] 2024-07-28 00:00:00 2024-07-28 00:00:00 (TEL) STLMLC STLMLC [id number] [facility] 2024-07-28 00:00:00 2024-07-28 00:00:00 (TEL) STLMLC STLMLC [id number] [facility] 2024-07-28 00:00:00 2024-07-28 00:00:00 (TEL) STLMLC STLMLC [id number] [facility] 2024-07-25 00:00:00 2024-07-25 00:00:00 OFFICE VISIT ESTAB PT LEVEL 4 STLMLC STLMLC [id number] [facility] 2024-07-12 00:00:00 2024-07-12 00:00:00 (TEL) STLMLC STLMLC [id number] [facility] 2024-07-11 00:00:00 2024-07-11 00:00:00 (TEL) STLMLC STLMLC [id number] [facility] 2024-07-10 00:00:00 2024-07-10 00:00:00 OFFICE VISIT ESTAB PT LEVEL 3 STLMLC STLMLC [id number] [facility] 2024-05-30 00:00:00 2024-05-30 00:00:00 OFFICE VISIT NEW PT LEVEL 4 STLMLC STLMLC [id number] [facility] 2024-05-19 19:36:00 2024-05-20 00:36:00 Emergency LUIS MAN [facility] [id number] [facility] 2024-05-19 19:36:00 2024-05-20 00:36:00 Emergency Kim Callejas Brent [facility] [id number] [facility] 2024-05-01 15:17:21 2024-05-01 15:17:21 Outpatient [facility] [id number] Torsten F Hunter 2024-05-01 00:00:00 2024-05-01 00:00:00 Outpatient Visit [facility] [id number] Torsten Taz uHnter 2024-04-09 09:45:00 2024-04-09 09:45:00 Outpatient ROMINA DUPONT [facility] [id number] [facility] 2023-12-10 18:02:00 2023-12-10 18:42:00 Emergency MT BATISTA ERICCA [facility] ERT [id number] [facility] 2023-12-10 18:02:00 2023-12-10 18:42:00 Emergency Mt Rivera [facility] 1..840.114 350.1.13.10 4.2.7.2.686 [id number] [facility] 2023-11-13 17:43:02 2023-11-13 17:43:02 Outpatient SFA [facility] [id number] Torsten Harrison 2023-11-13 00:00:00 2023-11-13 00:00:00 Outpatient Visit SFA [id number] Torsten Harrison 2023-10-18 15:40:52 2023-10-18 15:40:52 Outpatient SFA [facility] [id number] Torsten Harrison 2023-10-18 00:00:00 2023-10-18 00:00:00 Outpatient Visit SFA [id number] Torsten Harrison 2023-09-28 22:49:00 2023-09-28 23:06:00 Emergency STEPHANIE WILL [facility] ERT [id number] [facility] 2023-09-28 22:49:00 2023-09-28 23:06:00 Emergency Stephanie Tran [facility] 1..840.114 350.1.13.10 4.2.7.2.686 [id number] [facility] 2023-09-18 13:15:00 2023-09-18 14:05:19 Outpatient R ISABELL ANTONIO [facility] [id number] [facility] 2023-09-18 13:15:00 2023-09-18 14:05:19 Office Visit Isabell Antonio [facility] LUMBER RACKER [facility] MATERNAL & CHILD HEALTH [facility] 1.2840.114 350.1.13.10 4.2.7.2.686 [id number] [facility] 2023-08-05 15:10:00 2023-08-05 20:05:00 Emergency X ALESIA LECHUGA [facility] ERT [id number] [facility] 2023-08-05 15:10:00 2023-08-05 20:05:00 Emergency Alesia Lechuga [facility] 1.2840.114 350.1.13.10 4.2.7.2.686 [id number] [id number] [facility] 2023-05-24 19:16:00 2023-05-24 20:50:00 Emergency X RICHARDSON [facility] ERT [id number] [facility] 2023-05-24 19:16:00 2023-05-24 20:50:00 [facility] 1.2840.114 350.1.13.10 4.2.7.2.686 [id number] [facility] 2023-05-11 18:59:00 2023-05-12 00:02:00 Emergency X LACI Bejarano [facility] ERT [id number] [facility] 2023-05-11 18:59:00 2023-05-12 00:02:00 Emergency Laci bejarano [facility] 1.2840.114 350.1.13.10 4.2.7.2.686 [id number] [facility] 2023-05-11 00:00:00 2023-05-11 00:00:00 Orders Only Doctor Unassigned, [place] [facility] 1.2840.114 350.1.13.10 4.2.7.2.686 [id number] [facility] 2023-03-06 14:57:00 2023-03-06 21:46:00 Emergency X BRENNA SAMUEL [facility] ERT [id number] [facility] 2023-03-06 14:57:00 2023-03-06 21:46:00 Emergency Brenna Samuel [facility] 1.2.840.114 350.1.13.10 4.2.7.2.686 [id number] [facility] 2023-02-03 12:53:00 2023-02-03 14:49:00 Emergency X MARIA VICTORIA GARCÍA [facility] ERT [id number] [facility] 2023-02-03 12:53:00 2023-02-03 14:49:00 Emergency Maria Victoria García [facility] 1..840.114 350.1.13.10 4.2.7.2.686 [id number] [facility] 2022-10-17 17:35:00 2022-10-17 21:37:00 Emergency X Maggie BARRERA [facility] ERT [id number] [facility] 2022-10-17 17:35:00 2022-10-17 21:37:00 Emergency Maggie Barrera [facility] 1.2.840.114 350.1.13.10 4.2.7.2.686 [id number] [id number] [facility] 2022-10-10 09:10:00 2022-10-10 09:10:00 Outpatient HOANG KEYS [facility] [id number] [facility] 2022-08-24 00:00:00 2022-08-24 00:00:00 Patient Secure Msg Doctor Unassigned, [place] [facility] 1.2.840.114 350.1.13.10 4.2.7.2.686 [id number] [facility] 2022-08-06 01:52:00 2022-08-06 03:25:00 Emergency X ALESIA LECHUGA [facility] ERT [id number] [facility] 2022-08-06 01:52:00 2022-08-06 03:25:00 Emergency Alesia Lechuga [facility] 1.2.840.114 350.1.13.10 4.2.7.2.686 [id number] [facility] 2022-07-19 23:34:00 2022-07-20 02:20:00 Emergency X MEHREEN SETHI [facility] ERT [id number] [facility] 2022-07-19 23:34:00 2022-07-20 02:20:00 Emergency Mehreen Sethi S [facility] 1.2.840.114 350.1.13.10 4.2.7.2.686 [id number] [facility] 2022-05-23 10:17:00 2022-05-23 12:52:00 Emergency X RICHARDSON LEON [facility] ERT [id number] [facility] 2022-05-23 10:17:00 2022-05-23 12:52:00 Emergency Richardson [facility] 1.2.840.114 350.1.13.10 4.2.7.2.686 [id number] [id number] [facility] 2022-05-23 00:00:00 2022-05-23 00:00:00 Orders Only Doctor Unassigned, [place] [facility] 1.2.840.114 350.1.13.10 4.2.7.2.686 [id number] [facility] 2022-03-13 15:26:00 2022-03-13 19:56:00 Emergency X ARIANNE SHAY [facility] ERT [id number] [facility] 2022-03-13 15:26:00 2022-03-13 19:56:00 Emergency Arianne Shay [facility] 1.2.840.114 350.1.13.10 4.2.7.2.686 [id number] [facility] 2022-01-30 07:12:34 2022-01-30 23:59:00 Outpatient R RONIT SANTIAGO [facility] [id number] [facility] 2022-01-30 07:12:34 2022-01-30 23:59:00 Hospital Encounter Ronit Santiago [facility] 1.2.840.114 350.1.13.10 4.2.7.2.686 [id number] [facility] 2022-01-21 19:52:00 2022-01-21 21:51:00 Emergency X BRENNA SAMUEL [facility] ERT [id number] [facility] 2022-01-21 19:52:00 2022-01-21 21:51:00 Emergency Brenna Samuel Roseanne [facility] 1.2.840.114 350.1.13.10 4.2.7.2.686 [id number] [facility] 2021-11-01 14:30:00 2021-11-01 16:08:12 Office Visit Ronit Santiago [facility] LUMBER RACKER [facility] 1.2.840.114 350.1.13.10 4.2.7.2.686 [id number] [facility] 2021-11-01 14:30:00 2021-11-01 16:08:12 Outpatient R RONIT SANTIAGO [facility] [id number] [facility] 2021-11-01 09:30:00 2021-11-01 09:30:00 Outpatient R ISABELL ANTONIO [facility] [id number] [facility] 2021-10-26 19:30:00 2021-10-26 23:49:00 Emergency X DAYANNA HANNON [facility] ERT [id number] [facility] 2021-10-26 19:30:00 2021-10-26 23:49:00 Emergency Dayanna Hannon [facility] 1.2840.114 350.1.13.10 4.2.7.2.686 [id number] [facility] 2021-05-16 00:00:00 2021-05-16 00:00:00 Patient Secure Msg Doctor Unassigned, [place] [facility] 1..114 350.1.13.10 4.2.7.2.686 [id number] [facility] 2021-05-15 02:02:00 2021-05-15 13:30:00 Emergency X DELL NOBLE [facility] ERT [id number] [facility] 2021-05-15 02:02:00 2021-05-15 13:30:00 Emergency Dell Noble [facility] 1..114 350.1.13.10 4.2.7.2.686 [id number] [facility] 2021-05-12 01:32:00 2021-05-12 03:32:00 Emergency X DELL NOBLE [facility] ERT [id number] [facility] 2021-05-12 01:32:00 2021-05-12 03:32:00 Emergency eDll Noble [facility] 1.0.114 350.1.13.10 4.2.7.2.686 [id number] [facility] 2021-05-12 00:00:00 2021-05-12 00:00:00 Orders Only Doctor Unassigned, [place] [facility] 1.2.114 350.1.13.10 4.2.7.2.686 [id number] [facility] 2021-04-26 16:40:00 2021-04-26 18:47:00 Emergency X DANIEL JACOBSON [facility] ERT [id number] [facility] 2021-04-26 16:40:00 2021-04-26 18:47:00 Emergency Daniel Jacobson [facility] 1.2.840.114 350.1.13.10 4.2.7.2.686 [id number] [id number] [facility] 2021-03-10 12:55:00 2021-03-12 18:40:00 Emergency Jennifer Manzano [facility] ([facility]) 1.2.840.114 350.1.13.10 4.2.7.2.686 [id number] [facility] 2020-12-20 00:00:00 2020-12-20 00:00:00 Outpatient [facility] [id number] [facility] 2020-12-12 21:14:00 2020-12-13 01:55:00 Emergency Maggie Barrera [facility] 1.2.840.114 350.1.13.10 4.2.7.2.686 [id number] [facility] 2020-10-15 11:58:00 2020-10-15 15:51:00 Emergency X RICHARDSON LEON [facility] ERT [id number] [facility] 2020-10-15 11:58:00 2020-10-15 15:51:00 Emergency Richardson Leon [facility] 1.2.840.114 350.1.13.10 4.2.7.2.686 [id number] [facility] 2020-09-01 13:00:00 2020-09-01 13:00:00 Outpatient R [facility] [id number] [facility] 2020-08-27 09:15:00 2020-08-27 13:06:00 Emergency Dell Noble [facility] 1.2.840.114 350.1.13.10 4.2.7.2.686 [id number] [id number] [facility] 2020-08-27 00:00:00 2020-08-27 00:00:00 Orders Only Doctor Unassigned, [place] [facility] 1.2.840.114 350.1.13.10 4.2.7.2.686 [id number] [facility] 2020-07-30 00:00:00 2020-07-30 00:00:00 Telephone Glenis Becerra [facility] 1.2.840.114 350.1.13.10 4.2.7.2.686 [id number] [facility] 2020-07-28 20:54:00 2020-07-29 00:37:00 Emergency Maggie Barrera Doreen [facility] 1.2.840.114 350.1.13.10 4.2.7.2.686 [id number] [facility] 2020-07-29 00:00:00 2020-07-29 00:00:00 Patient Secure Msg Doctor Unassigned, [place] [facility] 1.2.840.114 350.1.13.10 4.2.7.2.686 [id number] [facility] 2020-06-24 14:22:00 2020-06-24 16:17:00 Emergency Mehreen Sethi [facility] 1.2.840.114 350.1.13.10 4.2.7.2.686 [id number] [id number] [facility] 2020-06-24 00:00:00 2020-06-24 00:00:00 Orders Only Doctor Unassigned, [place] [facility] 1.2.840.114 350.1.13.10 4.2.7.2.686 [id number] [facility] 2020-06-23 00:00:00 2020-06-23 00:00:00 (TEL) STLC STLMLC [id number] [facility] 2020-05-25 00:00:00 2020-05-25 00:00:00 Outpatient CLIVE DOTY [facility] [id number] [facility] 2020-05-06 00:00:00 2020-05-06 00:00:00 OFFICE VISIT ESTAB PT LEVEL 2 STLMLC STLMLC [id number] [facility] 2020-05-05 00:00:00 2020-05-05 00:00:00 (TEL) STLMLC STLC [id number] [facility] 2020-05-03 12:03:00 2020-05-03 16:07:00 Emergency Atif Shearer [facility] ([facility]) 1.2840.114 350.1.13.10 4.2.7.2.686 [id number] [facility] 2020-04-05 00:00:00 2020-04-05 00:00:00 Telephone Clive Tran [facility] LUMBER RACKER [facility] MATERNAL & CHILD [facility] 1.2840.114 350.1.13.10 4.2.7.2.686 [id number] [facility] 2020-04-01 14:01:09 2020-04-01 15:15:07 Office Visit Clive Tran [facility] LUMBER RACKER [facility] & CHILD [facility] 1.2.840.114 350.1.13.10 4.2.7.2.686 [id number] [facility] 2020-04-01 13:30:00 2020-04-01 13:30:00 Outpatient CLIVE DOTY [facility] [id number] [facility] 2020-04-01 00:00:00 2020-04-01 00:00:00 Orders Only Doctor Unassigned, [place] [facility] 1.2.840.114 350.1.13.10 4.2.7.2.686 [id number] [facility] 2020-02-20 00:00:00 2020-02-20 00:00:00 Letter (Out) Delia Perkins [facility] 1.2.840.114 350.1.13.10 4.2.7.2.686 [id number] [facility] 2020-02-18 20:02:00 2020-02-18 21:40:00 Emergency Maggie Barrera [facility] 1.2.840.114 350.1.13.10 4.2.7.2.686 [id number] [facility] 2020-02-18 00:00:00 2020-02-18 00:00:00 Orders Only Doctor Unassigned, [place] [facility] 1.2.840.114 350.1.13.10 4.2.7.2.686 [id number] [facility] 2019-11-18 15:13:00 2019-11-18 15:13:00 [facility] [id number] 2019-11-18 00:00:00 2019-11-18 00:00:00 Telephone Tessa Matos [facility] 1.2.840.114 350.1.13.10 4.2.7.2.686 [id number] [facility] 2019-11-16 19:58:07 2019-11-16 22:05:00 Emergency Richardson Leon [facility] 1.2.840.114 350.1.13.10 4.2.7.2.686 [id number] [facility] 2019-11-14 14:20:00 2019-11-14 14:20:[address] [facility] [address] [facility] [id number] [facility] 2019-11-14 11:44:00 2019-11-14 11:44:00 [facility] [address] [facility] [id number] [facility] 2019-07-29 11:15:00 2019-07-29 11:15:[address] [facility] [address] [facility] [id number] [facility] 2019-07-29 08:43:00 2019-07-29 08:43:00 [facility] Medicine [id number] [facility] 2019-07-27 22:56:42 2019-07-28 01:19:00 Emergency Isaac Reynolds [facility] 1.2.840.114 350.1.13.10 4.2.7.2.686 [id number] [facility] 2019-03-20 15:45:00 2019-03-20 15:45:00 [facility] [id number] [facility] 2018-09-26 00:00:00 2018-09-26 00:00:00 OFFICE VISIT ESTAB PT LEVEL 3 [facility] [id number] [facility] 2018-09-03 15:39:00 2018-09-03 15:39:00 [facility] [id number] [facility] 2018-09-03 12:09:00 2018-09-03 12:09:00 [facility] [id number] [facility] 2018-09-03 09:49:00 2018-09-03 09:49:00 [facility] [id number] [facility] 2018 16:01:00 2018 16:01:00 [facility] [id number] [facility] 2018-08-21 15:30:00 2018-08-21 15:30:00 [facility] [id number] [facility] 2018-08-21 11:30:00 2018-08-21 11:30:[address] [facility] [facility] [address] [facility] [id number] [facility] 2018-07-24 08:46:00 2018-07-24 08:46:[address] [facility] [address] [facility] [id number] [facility] 2018-07-17 13:15:00 2018-07-17 13:15:[address] [facility] [address] [facility] [id number] [facility] 2018-07-15 11:15:00 2018-07-15 11:15:[address] [facility] [address] [facility] [id number] [facility] 2018-06-19 08:15:00 2018-06-19 08:15:[address] [facility] [facility] [address] [facility] [id number] [facility] 2018-04-30 13:30:00 2018-04-30 13:30:00 [facility] [facility] [address] [facility] [id number] [facility] Results Test Description Test Time Test Comments Results Result Comments Source CYTOLOGY, URINE W/REFL FISH 00:00:00 CLINICAL INFORMATIONPATHOLOGISTREPORT NOTESSCREENER URINE, SPECIMEN A 00:00:00 A COMMENTA DIAGNOSISA GROSS DESCRIPTIONA SOURCE CT Abdomen pelvis wo [id number] 05:25:19Exam: CT Abdomen and Pelvis without contrast, 05/19/2024 10:15 PM. Ordering Physician: KIM CALLEJAS. History: Flank pain, kidney stone suspected . Comparison: None available. Technique: CT abdomen and pelvis was obtained without intravenous contrast.CT was performed according to ALARA (As Low As Reasonably Achievable). Technical Quality: Adequate. Findings: Lack of intravenous contrast limits the evaluation of the abdomen andpelvis. LOWER CHEST:Mild bibasilar atelectasis. ABDOMEN/PELVIS:Liver: Subcentimeter hypodensity in the right inferior liver is too smallto characterize.Gallbladder/biliary: Normal gallbladder. No biliary ductal dilation.Pancreas: Normal.Spleen: Normal. Adrenal glands: No hydronephrosis. Punctate cortical calcification in thelower pole of the right kidney measuring 2 mm.Kidneys and ureters: Normal.Bladder: Normal.Reproductive organs: Uterus is absent. No adnexalmass. Stomach/bowel: No bowel obstruction. No evidence of acute appendicitis.Radiodense material within the appendix. Lymph nodes: No lymphadenopathy.Peritoneum: No organized fluid collection or freeair. Vessels: Atherosclerosis without aneurysm. MUSCULOSKELETAL:Soft tissues: Postsurgical changes to the anterior abdominal wall.Bones: No acute [facility]seous abnormality.[facility] 1 [id number] 02:47:57 EXAM: XR CHEST 1 VW COMPARISON: Chest CT dated 03/10/2021. HISTORY: back pain ? FINDINGS: No focal consolidation is identified. Diffuse interstitial prominencenoted. No pleural effusion or pneumothorax is seen. The cardiomediastinalsilhouette is unchanged.No acute osseous abnormalities. [facility] W Specific [id number] 18:37:00* Test Item Value Reference Range Interpretation [...] POCT U APPEAR (test code = 3267) [facility] Urinalysis W Specific [id number] 18:37:00* Test Item Value Reference Range Interpretation [...] POCT U APPEAR (test code = 3267) [facility] ABDOMEN PELVIS W [id number] 23:19:49CT ABDOMEN PELVIS W CONTRAST Indication: LLQ [...] theleft iliac bone most likely [facility]. METABOLIC PANEL (67008)2023-08-05 21:50:58* Test Item Value Reference Range Interpretation Comme nts NA (test code = 6920647230) 138 mmol/L 135-145 K (test code = 6519123641) 3.7 mmol/L 3.5-5.0 CL (test code = 1847158530) 107 mmol/L 98-108 CO2 TOTAL (test code = 4294633040) 25 mmol/L 23-31 AGAP (test code = 1226810244) 6 2-16 BUN (test code = 0831120752) 14 mg/dL 7-23 GLUCOSE (test code = 9616229511) 162 mg/dL 70-110 H CREATININE (test code = 2160-0) 0.49 mg/dL 0.50-1.04 L TOTAL BILI (test code = 6783524388) 0.4 mg/dL 0.1-1.1 CALCIUM (test code = 5419181178) 8.8 mg/dL 8.6-10.6 T PROTEIN (test code = 4498691566) 7.0 g/dL 6.3-8.2 ALBUMIN (test code = 3601612767) 4.0 g/dL 3.5-5.0 ALK PHOS (test code = 4712211776) 80 U/L 34-122 ALTv (test code = 1742-6) 14 U/L 5-35 AST(SGOT) (test code = 8277594945) 24 U/L 13-40 eGFR (test code = 69850-4) 114.3 mL/min/1.73m2 CKD-EPI eGFR (2020). Assuming creatinine has been stable day-to-day for at least three months, the eGFR indicates Category G1 (>= 90 mL/min/1.73 m2) Lab Interpretation (test code = 81398-2) Abnormal [facility] WITH [id number] 21:44:15* Test Item Value Reference Range Interpretation [...] 33.6 g/dL 31.6-35.1 RDW-SD (test code = 33378-7) 44.0 fL 39.0-49.9 RDW-CV (test code = 788-0) 13.0 % 12.0-15.5 PLT (test code = 777-3) 337 166-358 MPV (test code = 87038-5) 9.3 fL 9.5-12.9 L NRBC/100 WBC (test code = 0757254141) 0.0 0.0-10.0 NRBC x10^3 (test code = 0716816605) See_Comment [Automated messa ge] The system which generated this result transmitted reference range: 10*3/?L. The reference range was not used to interpret this result as normal/abnormal. GRAN MAT (NEUT) % (test code = 770-8) 53.6 % IMM GRAN % (test code = 3173975304) 0.40 % LYMPH % (test code = 736-9) 39.1 % MONO % (test code = 5905-5) 4.2 % EOS % (test code = 713-8) 2.5 % BASO % (test code = 706-2) 0.2 % GRAN MAT x10^3(ANC) (test code = 1081297364) 5.34 10*3/uL 1.88-7.09 IMM GRAN x10^3 (test code = 5372360406) 0.04 10*3/uL 0.00-0.06 LYMPH x10^3 (test code = 731-0) 3.89 10*3/uL 1.32-3.29 H MONO x10^3 (test code = 742-7) 0.42 10*3/uL 0.33-0.92 EOS x10^3 (test code = 711-2) 0.25 10*3/uL 0.03-0.39 BASO x10^3 (test code = 704-7) 0.01-0.07 Lab Interpretation (test code = 28093-3) Abnormal [facility] PELVIS W [id number] 04:47:59Provider: JOSE GUADALUPE CAMPBELL EXAM: CT ABDOMEN [...] wall: Within normal limits.Bones: No acute bony abnormality.[facility] WITH [id number] 03:09:59* Test Item Value Reference Range Interpretation Comme nts WBC (test code = 6690-2) 10.42 See_Comment [Automated Flinto] The system which generated this result transmitted reference range: 4.30 - 11.10 10*3/?L. The reference range was not used to interpret this result as normal/abnormal. RBC (test code = 789-8) 4.11 See_Comment [Lendio] The system which generated this result transmitted [...] 34.6 g/dL 31.6-35.1 RDW-SD (test code = 67126-6) 42.8 fL 39.0-49.9 RDW-CV (test code = 788-0) 12.9 % 12.0-15.5 PLT (test code = 777-3) 345 See_Comment [Automated [employer] ge] The system which generated this result transmitted reference range: 166 - 358 10*3/?L. The reference range was not used to interpret this result as normal/abnormal. MPV (test code = 29189-2) 8.9 fL 9.5-12.9 L NRBC/100 WBC (test code = 6982739768) 0.0 See_Comment [Automated eBrevia ssage] The system which generated this result transmitted reference range: 0.0 - 10.0 /100 WBCs. The reference range was not used to interpret this result as normal/abnormal. NRBC x10^3 (test code = 4987678195) See_Comment [Automated [employer]] The system which generated this result transmitted reference range: 10*3/?L. The reference range was not used to interpret this result as normal/abnormal. GRAN MAT (NEUT) % (test code = 770-8) 45.5 % IMM GRAN % (test code = 0627486806) 0.20 % LYMPH % (test code = 736-9) 44.5 % MONO % (test code = 5905-5) 6.8 % EOS % (test code = 713-8) 2.9 % BASO % (test code = 706-2) 0.1 % GRAN MAT x10^3(ANC) (test code = 4596325163) 4.74 10*3/uL 1.88-7.09 IMM GRAN x10^3 (test code = 0250143900) 0.00-0.06 LYMPH x10^3 (test code = 731-0) 4.64 10*3/uL 1.32-3.29 H MONO x10^3 (test code = 742-7) 0.71 10*3/uL 0.33-0.92 EOS x10^3 (test code = 711-2) 0.30 10*3/uL 0.03-0.39 BASO x10^3 (test code = 704-7) 0.01-0.07 HYPERSEG NEUTS (test code = 765-8) Present See_Comment A [Automated messa ge] The system which generated this result transmitted reference range: (none). The reference range was not used to interpret this result as normal/abnormal. REACT LYMPHS (test code = 6186397013) Rare Lab Interpretation (test code = 09588-1) Abnormal [facility] METABOLIC PANEL (NA, K, CL, CO2, GLUCOSE, BUN, CREATININE, CA)2023-05-12 02:35:14* Test Item Value Reference Range Interpretation Comme nts NA (test code = 4861400977) 136 mmol/L 135-145 K (test code = 7200974866) 3.6 mmol/L 3.5-5.0 CL (test code = 3640173187) 103 mmol/L 98-108 CO2 TOTAL (test code = 9351706990) 26 mmol/L 23-31 AGAP (test code = 3425666336) 7 2-16 BUN (test code = 4979858915) 17 mg/dL 7-23 GLUCOSE (test code = 7547850899) 113 mg/dL 70-110 H CREATININE (test code = 7425436966) 0.65 mg/dL 0.50-1.04 CALCIUM (test code = 8617080837) 9.2 mg/dL 8.6-10.6 eGFR (test code = 83800-1) 106.7 mL/min/1.73m2 CKD-EPI eGFR (2020). Assuming creatinine has been stable day-to-day for at least three months, the eGFR indicates Category G1 (>= 90 mL/min/1.73 m2) Lab Interpretation (test code = 67291-7) [facility] (ALB,T.PRO,BILI T,BU/BC,ALT,AST,ALK PHOS)2023-05-12 02:35:14* Test Item Value Reference Range Interpretation Comme nts TOTAL BILI (test code = 5996067707) 0.4 mg/dL 0.1-1.1 BILI UNCON (test code = 8027480960) 0.2 mg/dL 0.1-1.1 BILI CONJ (test code = 6932969665) 0.0 mg/dL 0.0-0.3 T PROTEIN (test code = 3169389783) 7.5 g/dL 6.3-8.2 ALBUMIN (test code = 8156392445) 4.5 g/dL 3.5-5.0 ALK PHOS (test code = 2284312046) 83 U/L 34-122 ALTv (test code = 1742-6) 17 U/L 5-35 AST(SGOT) (test code = 9962789084) 25 U/L 13-40 Lab Interpretation (test cod e = 07114-8) [facility] 02:35:14* Test Item Value Reference Range Interpretation Comme nts LIPASE (test code = 1196587330) 151 U/L 0-220 Lab Interpretation (test cod e = 57213-6) [facility] (69751)2023-02-03 18:35:59* Test Item Value Reference Range Interpretation Comme nts NA (test code = 2904793349) 140 mmol/L 135-145 K (test code = 7344808972) 4.0 mmol/L 3.5-5.0 CL (test code = 6557078900) 108 mmol/L 98-108 CO2 TOTAL (test code = 9857921847) 24 mmol/L 23-31 AGAP (test code = 2409985351) 8 2-16 BUN (test code = 1506566565) 14 mg/dL 7-23 GLUCOSE (test code = 2863738796) 98 mg/dL 70-110 CREATININE (test code = 6173432616) 0.70 mg/dL 0.50-1.04 TOTAL BILI (test code = 9060646296) 0.2 mg/dL 0.1-1.1 CALCIUM (test code = 5276182262) 9.1 mg/dL 8.6-10.6 T PROTEIN (test code = 1308296946) 7.0 g/dL 6.3-8.2 ALBUMIN (test code = 3356586043) 4.3 g/dL 3.5-5.0 ALK PHOS (test code = 3518213326) 80 U/L 34-122 ALTv (test code = 1742-6) 14 U/L 5-35 AST(SGOT) (test code = 0945182393) 22 U/L 13-40 eGFR (test code = 1028960359) 88.2 mL/min/1.73m2 LAVONNE (test code = LAVONNE) [...] [facility] 18:35:39* Test Item Value Reference Range Interpretation Comme nts LIPASE (test code = 0262699494) 87 U/L 0-220 Lab Interpretation (test cod e = 49022-3) Normal [facility] WITH [id number] 18:24:40* Test Item Value Reference Range Interpretation Comme nts WBC (test code = 6690-2) 9.24 See_Comment [Automated messa ge] The system which [...] 34.5 g/dL 31.6-35.1 RDW-SD (test code = 84096-8) 42.5 fL 39.0-49.9 RDW-CV (test code = 788-0) 12.8 % 12.0-15.5 PLT (test code = 777-3) 345 See_Comment [Automated messa ge] The system which generated this result transmitted reference range: 166 - 358 10*3/?L. The reference range was not used to interpret this result as normal/abnormal. MPV (test code = 38599-8) 9.1 fL 9.5-12.9 L NRBC/100 WBC (test code = 1735160607) 0.0 See_Comment [Automated eBrevia ssage] The system which generated this result transmitted reference range: 0.0 - 10.0 /100 WBCs. The reference range was not used to interpret this result as normal/abnormal. NRBC x10^3 (test code = 6552583143) See_Comment [Automated messa ge] The system which generated this result transmitted reference range: 10*3/?L. The reference range was not used to interpret this result as normal/abnormal. GRAN MAT (NEUT) % (test code = 770-8) 51.4 % IMM GRAN % (test code = 3059962575) 0.20 % LYMPH % (test code = 736-9) 40.8 % MONO % (test code = 5905-5) 5.3 % EOS % (test code = 713-8) 2.2 % BASO % (test code = 706-2) 0.1 % GRAN MAT x10^3(ANC) (test code = 1941442657) 4.75 10*3/uL 1.88-7.09 IMM GRAN x10^3 (test code = 8961813638) 0.00-0.06 LYMPH x10^3 (test code = 731-0) 3.77 10*3/uL 1.32-3.29 H MONO x10^3 (test code = 742-7) 0.49 10*3/uL 0.33-0.92 EOS x10^3 (test code = 711-2) 0.20 10*3/uL 0.03-0.39 BASO x10^3 (test code = 704-7) 0.01-0.07 Lab Interpretation (test code = 19612-6) Abnormal [facility] WITH [id number] 07:21:41* Test Item Value Reference Range Interpretation [...] g/dL 31.6-35.1 H RDW-SD (test code = 53516-8) 41.1 fL 39.0-49.9 RDW-CV (test code = 788-0) 12.6 % 12.0-15.5 PLT (test code = 777-3) 315 See_Comment [Automated 500Indiesa ge] The system which generated this result transmitted reference range: 166 - 358 10*3/?L. The reference range was not used to interpret this result as normal/abnormal. MPV (test code = 64791-3) 8.7 fL 9.5-12.9 L NRBC/100 WBC (test code = 2715286920) 0.0 See_Comment [Automated eBrevia ssage] The system which generated this result transmitted reference range: 0.0 - 10.0 /100 WBCs. The reference range was not used to interpret this result as normal/abnormal. NRBC x10^3 (test code = 7445430876) See_Comment [Automated 500[employer] ge] The system which generated this result transmitted reference range: 10*3/?L. The reference range was not used to interpret this result as normal/abnormal. SEG % (test code = 91568-9) 45 % 33-76 LYMPH % (test code = 64788-0) 48 % 14-54 EOS % (test code = 28934-5) 7 % 0-3 H ANC (test code = 753-4) 4.43 10*3/uL 1.88-7.09 Lab Interpretation (test code = 91575-6) Abnormal [facility]. METABOLIC PANEL (22457)2022-07-20 07:05:10* Test Item Value Reference Range Interpretation Comme nts NA (test code = 3522947017) 139 mmol/L 135-145 K (test code = 9209726003) 4.0 mmol/L 3.5-5.0 Slight hemolysis CL (test code = 3825821325) 105 mmol/L 98-108 CO2 TOTAL (test code = 2773628469) 25 mmol/L 23-31 AGAP (test code = 5776199747) 9 2-16 BUN (test code = 7305867060) 19 mg/dL 7-23 Slight hemolysis GLUCOSE (test code = 7216888030) 96 mg/dL 70-110 CREATININE (test code = 9453932899) 0.59 mg/dL 0.50-1.04 TOTAL BILI (test code = 9972963659) 0.5 mg/dL 0.1-1.1 CALCIUM (test code = 3651542092) 9.2 mg/dL 8.6-10.6 T PROTEIN (test code = 6960062382) 6.9 g/dL 6.3-8.2 ALBUMIN (test code = 0502899808) 4.4 g/dL 3.5-5.0 ALK PHOS (test code = 7827197670) 53 U/L 34-122 Slight hemoly sis ALTv (test code = 1742-6) 15 U/L 5-35 AST(SGOT) (test code = 3306881150) 23 U/L 13-40 Slight hemoly sis eGFR (test code = 3211841078) 107.9 mL/min/1.73m2 LAVONNE (test code = LAVONNE) [...] [facility]76595[facility] (ALB,T.PRO,BILI T,BU/BC,ALT,AST,ALK PHOS)2022-03-13 22:31:03* Test Item Value Reference Range Interpretation Comme nts TOTAL BILI (test code = 3562182699) 0.4 mg/dL 0.1-1.1 BILI UNCON (test code = 1892444943) 0.1 mg/dL 0.1-1.1 BILI CONJ (test code = 2447317242) 0.0 mg/dL 0-0.3 T PROTEIN (test code = 4962715336) 7.0 g/dL 6.3-8.2 ALBUMIN (test code = 1221797274) 4.5 g/dL 3.5-5 ALK PHOS (test code = 7051699596) 60 U/L 34-122 ALTv (test code = 1742-6) 16 U/L 5-35 AST(SGOT) (test code = 7876571213) 25 U/L 13-40 Lab Interpretation (test cod e = 95340-6) [facility] (NA, K, CL, CO2, GLUCOSE, BUN, CREATININE, CA)2022-03-13 22:30:43* Test Item Value Reference Range Interpretation Comme nts NA (test code = 0138268764) 139 mmol/L 135-145 K (test code = 2284290179) 4.0 mmol/L 3.5-5 CL (test code = 8632041878) 104 mmol/L 98-108 CO2 TOTAL (test code = 9878047958) 26 mmol/L 23-31 AGAP (test code = 3080022013) 2-16 BUN (test code = 9107271870) 14 mg/dL 7-23 GLUCOSE (test code = 8525146154) 93 mg/dL 70-110 CREATININE (test code = 8638091028) 0.88 mg/dL 0.5-1.04 CALCIUM (test code = 8183401935) 9.0 mg/dL 8.6-10.6 eGFR (test code = 0669672967) mL/min/1.73m2 LAVONNE (test code = LAVONNE) Association [...] [facility] 22:30:43* Test Item Value Reference Range Interpretation Comme nts LIPASE (test code = 8884559414) 200 U/L 0-220 Lab Interpretation (test cod e = 02664-6) Normal [facility] WITH [id number] 21:59:40* Test Item Value Reference Range Interpretation Comme nts WBC (test code = 6690-2) See_Comment H [Automated Flinto] The system which generated this result transmitted [...] 35.0 g/dL 31.6-35.1 RDW-SD (test code = 00629-7) 42.3 fL 39-49.9 RDW-CV (test code = 788-0) 12.8 % 12-15.5 PLT (test code = 777-3) See_Comment [Automated messa ge] The system which generated this result transmitted reference range: 166 - 358 10*3/?L. The reference range was not used to interpret this result as normal/abnormal. MPV (test code = 39620-8) 8.9 fL 9.5-12.9 L NRBC/100 WBC (test code = 7295590205) See_Comment [Automated eBrevia ssage] The system which generated this result transmitted reference range: 0.0 - 10.0 /100 WBCs. The reference range was not used to interpret this result as normal/abnormal. NRBC x10^3 (test code = 6310904459) See_Comment [Automated messa ge] The system which generated this result transmitted reference range: 10*3/?L. The reference range was not used to interpret this result as normal/abnormal. GRAN MAT (NEUT) % (test code = 770-8) 60.3 % IMM GRAN % (test code = 1904649169) 0.30 % LYMPH % (test code = 736-9) 29.6 % MONO % (test code = 5905-5) 6.6 % EOS % (test code = 713-8) 3.0 % BASO % (test code = 706-2) 0.2 % GRAN MAT x10^3(ANC) (test code = 3972968663) 7.16 10*3/uL 1.88-7.09 H IMM GRAN x10^3 (test code = 1895272383) 0.04 10*3/uL 0-0.06 LYMPH x10^3 (test code = 731-0) 3.51 10*3/uL 1.32-3.29 H MONO x10^3 (test code = 742-7) 0.78 10*3/uL 0.33-0.92 EOS x10^3 (test code = 711-2) 0.35 10*3/uL 0.03-0.39 BASO x10^3 (test code = 704-7) 0.01-0.07 Lab Interpretation (test code = 46799-0) [facility]normal [facility] 01:55:34* Test Item Value Reference Range Interpretation Comme nts LIPASE (test code = 2175522392) 618 U/L 0-220 H Lab Interpretation (test cod e = 79872-8) [facility]normal [facility]OLIC PAN[facility] (33919)2022-01-22 01:55:34* Test Item Value Reference Range Interpretation Comme nts NA (test code = 3887797381) 140 mmol/L 135-145 K (test code = 9693784856) 4.4 mmol/L 3.5-5 CL (test code = 3104705903) 109 mmol/L 98-108 H CO2 TOTAL (test code = 4490876476) 25 mmol/L 23-31 AGAP (test code = 3435108890) 2-16 BUN (test code = 3938256955) 20 mg/dL 7-23 GLUCOSE (test code = 4915402586) 98 mg/dL 70-110 CREATININE (test code = 7216107121) 0.73 mg/dL 0.5-1.04 TOTAL BILI (test code = 2180146146) 0.2 mg/dL 0.1-1.1 CALCIUM (test code = 6356498137) 9.1 mg/dL 8.6-10.6 T PROTEIN (test code = 9699606160) 6.9 g/dL 6.3-8.2 ALBUMIN (test code = 1053375412) 4.6 g/dL 3.5-5 ALK PHOS (test code = 9934251744) 71 U/L 34-122 ALTv (test code = 1742-6) 16 U/L 5-35 AST(SGOT) (test code = 7547497891) 23 U/L 13-40 eGFR (test code = 4102531206) mL/min/1.73m2 LAVONNE (test code = LAVONNE) Association [...] imaging tests). Lab Interpretation (test code = 08577-7) Abnormal [facility] WITH [id number] 01:48:36* Test Item Value Reference Range Interpretation Comme nts WBC (test code = 6690-2) See_Comment H [Automated Flinto] The system which generated this result transmitted [...] g/dL 31.6-35.1 H RDW-SD (test code = 21121-8) 43.0 fL 39-49.9 RDW-CV (test code = 788-0) 13.1 % 12-15.5 PLT (test code = 777-3) See_Comment [Automated messa ge] The system which generated this result transmitted reference range: 166 - 358 10*3/?L. The reference range was not used to interpret this result as normal/abnormal. MPV (test code = 15012-9) 10.1 fL 9.5-12.9 NRBC/100 WBC (test code = 4364896520) See_Comment [Automated eBrevia ssage] The system which generated this result transmitted reference range: 0.0 - 10.0 /100 WBCs. The reference range was not used to interpret this result as normal/abnormal. NRBC x10^3 (test code = 4162668027) See_Comment [Automated messa ge] The system which generated this result transmitted reference range: 10*3/?L. The reference range was not used to interpret this result as normal/abnormal. GRAN MAT (NEUT) % (test code = 770-8) 52.3 % IMM GRAN % (test code = 1606311333) 0.30 % LYMPH % (test code = 736-9) 39.4 % MONO % (test code = 5905-5) 5.5 % EOS % (test code = 713-8) 2.3 % BASO % (test code = 706-2) 0.2 % GRAN MAT x10^3(ANC) (test code = 8776856875) 6.05 10*3/uL 1.88-7.09 IMM GRAN x10^3 (test code = 5926843582) 0.03 10*3/uL 0-0.06 LYMPH x10^3 (test code = 731-0) 4.55 10*3/uL 1.32-3.29 H MONO x10^3 (test code = 742-7) 0.63 10*3/uL 0.33-0.92 EOS x10^3 (test code = 711-2) 0.27 10*3/uL 0.03-0.39 BASO x10^3 (test code = 704-7) 0.01-0.07 Lab Interpretation (test code = 52520-4) Abnormal [facility] Notes Date/Time Note Provider Source 2024-05-20 00:34:16 Pt given printed and verbal discharge instructions regarding back pain, encouraged hydration, Prescriptions provided Discussed [place] side affects and to avoid driving/operating machinery/or engaging in activities requiring alertness while taking. Pt verbalized understanding of instructions, pt awake alert oriented, resp reg unlabored, skin w/d, color appropriate for race, moves all ext well,pt encouraged to follow up with pcp Advised to seek medical attention for new/prolonged/worsening of symptoms No adverse reaction to meds given in ER noted upon discharge Awake, alert oriented, resp reg unlabored, skin w/d, pt leaving amb with steady gait, in no apparent distress, with E Hook RN [facility] 2024-05-19 19:29:54 Pt arrives to ED ambulatory c/o bilateral flank pain that has persisted ever since she was discharged from [facility] last week due to dehydration and kidney problems. States that when she was discharged they had told her she had fluid in her lungs and now her upper back is hurting as well. Rates pain 10/10 Pt currently taking ibuprofen 800mg, tizanidine 2mg, cefpodoxime pro 100mg, and promethazine 25mg. 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 She states she is now having bilateral flank pain that started a few days ago. She is not vomiting or having dysuria like she was previously but she just wanted to check to make sure she was still okay Past Medical History/Immunizations: Past Medical History: Diagnosis Date Anemia unk Anxiety Arthritis bilateral knee pain, OTC Alieve Arthritis Bacterial vaginosis 05/09/2013 Breast disorder left sided lump with pain-started 12/2012 Depression 2006 used to take medication, does not at this time Female infertility surgical, BTL Irregular periods/menstrual cycles 05/09/2013 Menstrual disorder severe cramping STD (sexually transmitted disease) 01/2013 gonorrhea Tobacco use disorder 05/09/2013 Uterine fibroid 2016 UTI (urinary tract infection) Well woman exam 03/12/2013 Tetanus received in last 5 years: Yes Allergies: No Known Allergies Past Social History: Tobacco Use Every Day; 0.3 packs/day; Smoked an average of 0.3 packs/day for 13.0 years; Types: Cigarettes Smokeless Tobacco: Never used smokeless tobacco. Comments: 3-4 cigarretes per day Alcohol Use Yes. Comments: on occasion Drug Use No. Sexual Activity Sexually active; Partners: Female; Control/Protection: Surgical. Comments: last sexual intercourse 08/18/2023 Past Surgical History: Past Surgical History: Procedure Laterality Date CYSTOSCOPY 07/06/2015 CYSTOSCOPY 07/07/2015 SALPINGECTOMY Bilateral 07/06/2015 Surgeon: [facility] Leon III, MD; Location[facility] TOTAL ABDOMINAL HYSTERECTOMY N/A 07/06/2015 Surgeon: Ho[facility] Leon III, MD; Location: [facility] TUBAL LIGATION tubal in 1994 Review of Systems: Review of Systems Physical Exam: ED Triage Vitals [05/19/24 1933] Weight 55 kg (121 lb 3.2 oz) Actual or estimated Actual Height 1.575 m (5' 2") BP 117/70 Pulse 71 Resp 16 Temp 36.7 ?C (98.1 ?F) Temp source Oral SpO2 98 % Measured on Room air Physical Exam Vitals reviewed. Constitutional: Appearance: She is well-developed. HENT: Head: Normocephalic and atraumatic. Eyes: Conjunctiva/sclera: Conjunctivae normal. Cardiovascular: Rate and Rhythm: Normal rate and regular rhythm. Heart sounds: Normal heart sounds. No murmur heard. Pulmonary: Effort: Pulmonary effort is normal. Breath sounds: Normal breath sounds. No stridor. Abdominal: General: Bowel sounds are normal. Palpations: Abdomen is soft. Tenderness: There is no abdominal tenderness. Comments: Bilateral flank pain Musculoskeletal: General: Normal range of motion. Cervical back: Neck supple. Skin: General: Skin is warm and dry. Capillary Refill: Capillary refill takes less than 2 seconds. Neurological: Mental Status: She is alert and oriented to person, place, and time. Cranial Nerves: No cranial nerve deficit. Psychiatric: Behavior: Behavior normal. Radiology: CT Abdomen pelvis wo contrast Final Result Exam: CT Abdomen and Pelvis without contrast, 05/19/2024 10:15 PM. Ordering Physician: KIM CALLEJAS. History: Flank pain, kidney stone suspected . Comparison: None available. Technique: CT abdomen and pelvis was obtained without intravenous contrast. CT was performed according to ALARA (As Low As Reasonably Achievable). Technical Quality: Adequate. Findings: Lack of intravenous contrast limits the evaluation of the abdomen and pelvis. LOWER CHEST: Mild bibasilar atelectasis. ABDOMEN/PELVIS: Liver: Subcentimeter hypodensity in the right inferior liver is too small to characterize. Gallbladder/biliary: Normal gallbladder. No biliary ductal dilation. Pancreas: Normal. Spleen: Normal. Adrenal glands: No hydronephrosis. Punctate cortical calcification in the lower pole of the right kidney measuring 2 mm. Kidneys and ureters: Normal. Bladder: Normal. Reproductive organs: Uterus is absent. No adnexal mass. Stomach/bowel: No bowel obstruction. No evidence of acute appendicitis. Radiodense material within the appendix. Lymph nodes: No lymphadenopathy. Peritoneum: No organized fluid collection or free air. Vessels: Atherosclerosis without aneurysm. MUSCULOSKELETAL: Soft tissues: Postsurgical changes to the anterior abdominal wall. Bones: No acute osseous abnormality. IMPRESSION Impression: No acute finding in the abdomen or pelvis. RL: [id number] End of Report Chest 1 vw Final Result EXAM: XR CHEST 1 VW COMPARISON: Chest CT dated 03/10/2021. HISTORY: back pain FINDINGS: No focal consolidation is identified. Diffuse interstitial prominence noted. No pleural effusion or pneumothorax is seen. The cardiomediastinal silhouette is unchanged. No acute osseous abnormalities. IMPRESSION No acute cardiopulmonary process. Lab Results: Lab Results BASIC METABOLIC PANEL (NA, K, CL, CO2, GLUCOSE, BUN, CREATININE, CA) - Abnormal Result Value Ref Range NA 142 135 - 145 mmol/L K 4.0 3.5 - 5.0 mmol/L CL 109 (*) 98 - 108 mmol/L CO2 TOTAL 27 23 - 31 mmol/L AGAP 6 2 - 16 BUN 19 7 - 23 mg/dL GLUCOSE 107 70 - 110 mg/dL CREATININE 0.73 0.50 - 1.04 mg/dL CALCIUM 9.5 8.6 - 10.6 mg/dL eGFR 99.1 mL/min/1.73m2 URINALYSIS - Abnormal APPEARANCE Clear Clear COLOR Straw (*) Yellow PH 5.0 4.8 - 8.0 SP GRAVITY 1.011 1.003 - 1.030 GLU U QUAL Normal Normal BLOOD Negative Negative KETONES Negative Negative PROTEIN Negative Negative UROBILIN Normal Normal BILIRUBIN Negative Negative NITRITE Negative Negative LEUK DEVAN Negative Negative RBC/HPF 0 0 - 3 HPF WBC/HPF 0 0 - 5 HPF BACTERIA Negative Negative MUCOUS Slight (*) Negative LPF SQ EPITH <1 HPF EKG: If EKG completed, see Procedure Note. Orders and Treatments: Orders Placed This Encounter Procedures XR Chest [address] Abdomen pelvis wo contrast Basic Metabolic Panel (NA, K, CL, CO2, GLUCOSE, BUN, CREATININE, CA) Urinalysis Orders Placed This Encounter Medications DISCONTD: HYDROcodone-acetaminophen (NORCO 5) tablet 1 tablet dicyclomine (BENTYL) tablet 20 mg ketorolac (TORADOL) tablet 10 mg First Provider Eval: ED Events Date/Time Event User Comments 05/19/241942 Medical Screening Begins KIM CALLEJAS MD -- 05/19/241942 First Provider Evaluation KIM CALLEJAS MD -- ED COURSE Diagnosis/Impression as of 05/20/24 0007 Acute bilateral thoracic back pain Flank pain Acute bilateral low back pain without sciatica Procedures: Procedures MDM: Medical Decision Making Cr is normal Ua shows no blood or infection Bentyl and toradol given once Pending CT scan signed out to Vasut. Likely discharge Problems Addressed: Acute bilateral thoracic back pain: acute illness or injury Flank pain: acute illness or injury Amount and/or Complexity of Data Reviewed Independent Historian: spouse Labs: ordered. Decision-making details documented in ED Course. Radiology: ordered. Decision-making details documented in ED Course. Risk Prescription drug management. Flowsheet Documentation: Scoring Tools: No data recorded Disposition/Condition: ED Disposition None Discharge Medications: Patient's Medications START taking these medications No medications on file CONTINUE taking these medications which have NOT CHANGED IBUPROFEN 800 MG TABLET Take 1 tablet by mouth 3 (three) times daily as needed for Pain (scale 4-6). LORATADINE-PSEUDOEPHEDRINE (CLARITIN-D 24 HOUR) 10-240 MG PER 24 HR TABLET Take 1 tablet by mouth in the morning. METHYLPREDNISOLONE (MEDROL, AUBREE,) 4 MG TABLETS Take by mouth SEE-INSTRUCTIONS. follow package directions START taking Modified Medications as Prescribed No medications on file STOP taking these medications No medications on file Follow-up: Electronically signed by: Kim Callejas DO 05/19/[id number] [facility] 2024-05-19 19:25:00 Patient seen, examined and d/w Dr. Juarez, shift change, pending CTAP--negative acute findings. Exam c/w musculoskeletal lower back pain/strain. Agree with home, hydration, symptomatic care, ER warnings, close f/u PCP. Luis Pearson MD 05/20/24 0004 [facility]2024-07-22 18:41:08 Pt given printed and verbal discharge instructions regarding otitis media with effusion bilateral, encouraged hydration, 4 Prescriptions sent to pharmacy Discussed ibuprofen and to take with food to avoid GI distress. Discussed antibiotic therapy and to take until all completed unless adverse reaction occurs - if occurs, discontinue medication and follow up with pcp/seek medical attention Pt verbalized understanding of instructions, pt awake alert oriented, resp reg unlabored, skin w/d, color appropriate for race, moves all ext well,pt encouraged to follow up with pcp Advised to seek medical attention for new/prolonged/worsening of symptoms, Symptoms improved No adverse reaction to meds given in ER noted upon discharge Awake, alert oriented, resp reg unlabored, skin w/d, pt leaving amb with steady gait, in no apparent distress. Dee Dee Zavala [id number] 17:58:49 Patient states "from September until now I have had an ear infection in both ears." Patient states that she has been treated multiple times for ear infections and was referred to a specialist. Patient unable to get an appointment until December. Currently has bilateral ear pain. Blayne Womack [id number] 00:00:00 [facility]2024-05-30 00:00:00 [facility]2024-05-10 22:57:26 Pt given printed and verbal discharge instructions regarding otitis media. Encouraged hydration, Prescriptions provided:amoxicillin Discussed ibuprofen and to take with food to avoid GI distress. Discussed antibiotic therapy and to take until all completed unless adverse reaction occurs - if occurs, discontinue medication and follow up with pcp/seek medical attention Pt verbalized understanding of instructions, pt awake alert oriented, resp reg unlabored, skin w/d, color appropriate for race, moves all ext well,pt encouraged to follow up with pcp. Advised to seek medical attention for new/prolonged/worsening of symptoms, Symptoms unchanged No adverse reaction to meds given in ER noted upon discharge Awake, alert oriented, resp reg unlabored, skin w/d, pt leaving amb with steady gait, in no apparent distress. [id number]42[facility]38 Bilateral ear pain, left worse than right. Throat pain. Stated 3 days ago. 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 No injury or trauma. No recent swimming. No fevers. Has been using antibiotic eardrops and reports it is not helping. She also had some ibuprofen earlier this morning. She does smoke cigarettes. No history of diabetes. No cough or congestion. Here for evaluation. Past Medical History/Immunizations: Past Medical History: Diagnosis Date Anemia unk Anxiety Arthritis bilateral knee pain, OTC Alieve Arthritis Bacterial vaginosis 05/09/2013 Breast disorder left sided lump with pain-started 12/2012 Depression 2006 used to take medication, does not at this time Female infertility surgical, BTL Irregular periods/menstrual cycles 05/09/2013 Menstrual disorder severe cramping STD (sexually transmitted disease) 01/2013 gonorrhea Tobacco use disorder 05/09/2013 Uterine fibroid 2015 UTI (urinary tract infection) Well woman exam 03/12/2013 Tetanus received in last 5 years: Yes Childhood immunizations: Up-to-date Allergies: No Known Allergies Past Social History: Tobacco Use Every Day; 0.3 packs/day; Smoked an average of 0.3 packs/day for 13.0 years; Types: Cigarettes Smokeless Tobacco: Never used smokeless tobacco. Comments: 3-4 cigarretes per day Alcohol Use Yes. Comments: on occasion Drug Use No. Sexual Activity Sexually active; Partners: Female; Control/Protection: Surgical. Comments: last sexual intercourse 08/18/2023 Past Surgical History: Past Surgical History: Procedure Laterality Date CYSTOSCOPY 07/06/2015 CYSTOSCOPY 07/07/2015 SALPINGECTOMY Bilateral 07/06/2015 Surgeon: Hoang Leon III, MD; Location: [facility] OR [facility] TOTAL ABDOMINAL HYSTERECTOMY N/A 07/06/2015 Surgeon: [facility]ang Leon III, MD; Location: [facility] OR [facility] TUBAL LIGATION tubal in 1994 Review of Systems: Review of Systems Constitutional: Negative for chills and fever. HENT: Positive for ear pain. Respiratory: Negative for cough. Cardiovascular: Negative for chest pain. Gastrointestinal: Negative for abdominal pain. Genitourinary: Negative for dysuria. Musculoskeletal: Negative for arthralgias and neck pain. Neurological: Negative for dizziness. Psychiatric/Behavioral: Negative for agitation. Physical Exam: ED Triage Vitals [09/28/23 2243] Weight 59 kg (130 lb) Actual or estimated Estimated by patient/family report Height 1.575 m (5' 2") BP 119/79 Pulse 72 Resp 18 Temp 37.2 ?C (98.9 ?F) Temp source Oral SpO2 99 % Measured on Room air Physical Exam Vitals and nursing note reviewed. Constitutional: Appearance: Normal appearance. She is normal weight. HENT: Head: Normocephalic and atraumatic. Right Ear: Tympanic membrane, ear canal and external ear normal. Ears: Comments: Left tympanic membrane is erythematous and dull. Mouth/Throat: Mouth: Mucous membranes are moist. Pharynx: Oropharynx is clear. No oropharyngeal exudate or posterior oropharyngeal erythema. Cardiovascular: Rate and Rhythm: Normal rate. Pulmonary: Effort: Pulmonary effort is normal. No respiratory distress. Abdominal: General: There is no distension. Musculoskeletal: General: Normal range of motion. Cervical back: Neck supple. Skin: General: Skin is warm. Neurological: Mental Status: She is alert. Radiology: No orders to display Lab Results: Lab Results - No data to display EKG: If EKG completed, see Procedure Note. Orders and Treatments: No orders of the defined types were placed in this encounter. Orders Placed This Encounter Medications amoxicillin 875 mg tablet ibuprofen (IBU) tablet 600 mg First Provider Eval: ED Events Date/Time Event User Comments 09/28/232235 Medical Screening Begins STEPHANIE TRAN DO -- 09/28/232235 First Provider Evaluation STEPHANIE TRAN DO -- ED COURSE Diagnosis/Impression as of 09/28/23 2250 Acute otitis media, unspecified otitis media type Procedures: Procedures MDM: Medical Decision Making The patient presents from home for evaluation for left ear pain for the past several days. No fevers. She had some ibuprofen earlier this morning and has been using eardrops at home but reports they are not helping. She does smoke cigarettes. No history of diabetes. Vital signs are stable here in the ER. Her right tympanic membrane is pearly [place]. Her left tympanic membrane is dull and erythematous. Will treat for otitis media. She remained stable here in the ER and is okay for discharge home with PCP follow-up. Problems Addressed: Acute otitis media, unspecified otitis media type: acute illness or injury Risk OTC drugs. Prescription drug management. Flowsheet Documentation: Scoring Tools: No data recorded Disposition/Condition: ED Disposition ED Disposition Disch - Home Condition Stable Comment -- Discharge Medications: Patient's Medications START taking these medications AMOXICILLIN 875 MG TABLET Take 1 tablet by mouth in the morning and 1 tablet in the evening. Do all this for 7 days. CONTINUE taking these medications which have NOT CHANGED No medications on file START taking Modified Medications as Prescribed No medications on file STOP taking these medications No medications on file Follow-up: Electronically signed by: Stephanie Tran DO 09/28/230 [place] [address]-03-17 20:04:20 Pt discharged with diagnosis of dysuria, flank pain, LLQ pain, acute otitis externa of R ear, and constipation. Printed and verbal instructions reviewed with and given to pt. Prescriptions given x 3. Pt verbalized understanding of teaching, medications, and recommended follow-up. Denies questions or concerns at this time. Pt ambulatory at discharge. Appears in no apparent distress. No ataxia noted. Desiree Ruiz [place] [id number] 17:45:40 BP dropped to 87/62. Provider Courtney Lechuga notified-500 cc NS IV bolus initiated as per verbal order. Patient remains warm, dry, pink, asymptomatic. T Viet Smith [place] [id number] 16:48:24 Medicated as ordered with fentanyl 50 mcg IV for persitent left flank pain 01/28. T [place] [id number] 15:07:58 Stephania San is a 52 year old female c/o dysuria x3 weeks, getting worse, also c/o fluid draining from right ear x 3 days, T [place] [address]-01-04 20:49:49 Pt given printed and verbal discharge instructions regarding coronavirus disease 2019, encouraged hydration. Prescriptions provided. Pt verbalized understanding of instructions, pt awake alert oriented, resp reg unlabored, skin w/d, color appropriate for race, moves all ext well,pt encouraged to follow up with pcp. Advised to seek medical attention for new/prolonged/worsening of symptoms. Awake, alert oriented, resp reg unlabored, skin w/d, pt leaving amb with steady gait, in no apparent distress. [place] [address]-01-04 19:08:17 Pt arrives ambulatory to ED reporting flu like symptoms x5 days and she says it is not improving so she came in to be seen. [facility] Sherry Tran [place] [address]-12-22 22:33:28 Pt bck from radoliogy. Spouse at bedside [facility] Lana Wood [place] [address]-12-22 20:58:42 Pt out of bed ambulates to bathroom to void [place] [address]-12-22 18:58:53 Pt given urine cup and placed in the lobby, pt advice to notify nurse with any other concerns or if symptoms worsen. [place] [address]-12-22 18:55:25 C/O lower back pain to the lower abd with painful urination and cloudy urine for 3 weeks. 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 treatment comments: tylenol @ 1500 Travel and Exposure Screening: Symptoms Does patient have any of these symptoms?: (not recorded) Exposure Screening Has patient had contact with someone with a communicable disease in the last month?: (not recorded) Diseases exposed to:: (not recorded) Is Patient ?: (not recorded) Exposure Date: (not recorded) Chief Complaint: Chief Complaint Patient presents with URINARY TRACT INFECTION History of Present Illness: This is a 52-year-old female patient no significant prior medical history presenting to this facility with complaints of right-sided flank discomfort associated with dysuria composed of burning stinging frequency urgency. She has had the symptoms over the course of the last 2+ weeks and states that she just completed a course of Augmentin from [place] physician, her symptoms are now worse and include pain to the right flank associated with fever and chills. Denies vomiting or chest pain. Does endorse extensive history of urinary tract infections but states this is far worse. Past Medical History/Immunizations: Past Medical History: Diagnosis Date Anemia unk Anxiety [...] infection) Tetanus received in last 5 years: Yes Childhood immunizations: Up-to-date Allergies: No Known Allergies Past Social History: Tobacco Use Every Day; 0.25 packs/day for 13.00 years; Types: Cigarettes Smokeless Tobacco: Never used smokeless tobacco. Comments: 3-4 cigarretes per day Alcohol Use Yes. Comments: on occasion Drug Use No. Sexual Activity Sexually active; Partners: Female; Control/Protection: Surgical. Comments: last sexual intercourse 10/30/2021 Past Surgical History: Past Surgical History: Procedure Laterality Date CYSTOSCOPY 07/06/2015 CYSTOSCOPY 07/07/2015 SALPINGECTOMY Bilateral 07/06/2015 Surgeon: [facility] Leon III, MD; Location: [facility] TOTAL ABDOMINAL HYSTERECTOMY N/A 07/06/2015 Surgeon: Haong Leon III, MD; Location: [facility] TUBAL LIGATION tubal in 1994 Review of Systems: Review of Systems Constitutional: Negative for fever. HENT: Negative for congestion. Respiratory: Negative for stridor. Cardiovascular: Negative for chest pain. Gastrointestinal: Positive for abdominal pain. Genitourinary: Positive for dysuria, frequency and flank pain. Skin: Negative for pallor. Neurological: Negative for syncope. Physical Exam: ED Triage Vitals [05/11/23 1856] Weight Actual or estimated Height BP 106/79 Pulse 78 Resp 18 Temp 37.2 ?C (99 ?F) Temp source Oral SpO2 98 % Measured on Room air Physical Exam Constitutional: Appearance: Normal appearance. HENT: Head: Atraumatic. Mouth/Throat: Mouth: Mucous membranes are moist. Eyes: Pupils: Pupils are equal, round, and reactive to light. Cardiovascular: Rate and Rhythm: Regular rhythm. Pulmonary: Effort: No respiratory distress. Abdominal: General: There is no distension. Tenderness: There is right CVA tenderness. Musculoskeletal: General: No deformity. Cervical back: Normal range of motion. Skin: Coloration: Skin is not pale. Neurological: Mental Status: She is alert and oriented to person, place, and time. Radiology: No orders to display Lab Results: Lab Results - No data to display EKG: If EKG completed, see Procedure Note. Orders and Treatments: Orders Placed This Encounter Procedures CT ABDOMEN PELVIS W CONTRAST CBC WITH DIFF BASIC METABOLIC PANEL (NA, K, CL, CO2, GLUCOSE, BUN, CREATININE, CA) HEPATIC FUNCTION PANEL (17193) (ALB,T.PRO,BILI T,BU/BC,ALT,AST,ALK PHOS) LIPASE AC PANEL 21 + LACTIC ACID URINALYSIS Orders Placed This Encounter Medications NaCl 0.9% (NS) bolus infusion 1,000 mL morpHINE (4 mg/mL) injection 4 mg First Provider Eval: ED Events Date/Time Event User Comments 05/11/231923 Medical Screening Begins JOSE GUADALUPE CAMPBELL MD -- 05/11/231923 First Provider Evaluation JOSE GUADALUPE CAMPBELL MD -- ED COURSE Diagnosis/Impression as of 05/11/23 2301 Right flank pain Abdominal pain of unknown etiology Procedures: Procedures MDM: Medical Decision Making This is a 52-year-old female patient no significant prior medical history presenting to this facility with complaints of right-sided flank discomfort associated with dysuria composed of burning stinging frequency urgency. She has had the symptoms over the course of the last 2+ weeks and states that she just completed a course of Augmentin from [place] physician, her symptoms are now worse and include pain to the right flank associated with fever and chills. Denies vomiting or chest pain. Does endorse extensive history of urinary tract infections but states this is far worse. Physical exam is as described above but notable for overall well appearing patient, no acute distress, hemodynamically stable, neurovascularly intact, and talking in complete sentences. Labs show: Lab Results CBC WITH DIFF - Abnormal WBC 10.42 Ref Range: 4.30 - 11.10 10*3/?L RBC 4.11 Ref Range: 3.93 - 5.25 10*6/?L HGB 13.0 Ref Range: 11.6 - 15.0 g/dL HCT 37.6 Ref Range: 35.7 - 45.2 % MCV 91.5 Ref Range: 80.6 - 95.5 fL MCH 31.6 Ref Range: 25.9 - 32.8 pg MCHC 34.6 Ref Range: 31.6 - 35.1 g/dL RDW-SD 42.8 Ref Range: 39.0 - 49.9 fL RDW-CV 12.9 Ref Range: 12.0 - 15.5 % PLT 345 Ref Range: 166 - 358 10*3/?L MPV 8.9 (*) Ref Range: 9.5 - 12.9 fL NRBC/100 WBC 0.0 Ref Range: 0.0 - 10.0 /100 WBCs NRBC x103<0.01 Ref Range: 10*3/?L GRAN MAT (NEUT) % 45.5 Ref Range: % IMM GRAN % 0.20 Ref Range: % LYMPH % 44.5 Ref Range: % MONO % 6.8 Ref Range: % EOS % 2.9 Ref Range: % BASO % 0.1 Ref Range: % GRAN MAT x103(ANC) 4.74 Ref Range: 1.88 - 7.09 10*3/uL IMM GRAN x103<0.03 Ref Range: 0.00 - 0.06 10*3/uL LYMPH x1034.64 (*)Ref Range: 1.32 - 3.29 10*3/uL MONO x1030.71 Ref Range: 0.33 - 0.92 10*3/uL EOS x1030.30 Ref Range: 0.03 - 0.39 10*3/uL BASO x103<0.03 Ref Range: 0.01 - 0.07 10*3/uL HYPERSEG NEUTS Present (*)Ref Range: (none) REACT LYMPHS Rare BASIC METABOLIC PANEL (NA, K, CL, CO2, GLUCOSE, BUN, CREATININE, CA) - Abnormal NA 136 Ref Range: 135 - 145 mmol/L K 3.6 Ref Range: 3.5 - 5.0 mmol/L CL 103 Ref Range: 98 - 108 mmol/L CO2 TOTAL 26 Ref Range: 23 - 31 mmol/L AGAP 7 Ref Range: 2 - 16 BUN 17 Ref Range: 7 - 23 mg/dL GLUCOSE 113 (*) Ref Range: 70 - 110 mg/dL CREATININE 0.65 Ref Range: 0.50 - 1.04 mg/dL CALCIUM 9.2 Ref Range: 8.6 - 10.6 mg/dL eGFR 106.7 Ref Range: mL/min/1.73m2 AC PANEL 21 + LACTIC ACID - Abnormal PH 7.36 Ref Range: 7.32 - 7.42 PCO2 JIM 41 Ref Range: 41 - 51 mmHg PO2 JIM 45 (*) Ref Range: 25 - 40 mmHg HCO3 JIM 23 (*) Ref Range: 24 - 28 mEq/L AC VBE(BEAKER) -2.3 Ref Range: mEq/L THB JIM 12.8 Ref Range: 12.0 - 16.0 g/dL %O2HB JIM 77.3 (*)Ref Range: 52.0 - 63.0 % %COHB JIM 6.9 (*) Ref Range: 0.0 - 1.5 % %METHB JIM 0.3 (*) Ref Range: 0.4 - 1.5 % VOL%O2 JIM 13.9 (*)Ref Range: 6.0 - 12.0 % NA 137 Ref Range: 135 - 145 mmol/L K+ 3.5 Ref Range: 3.5 - 5.0 mmol/L AC CA IONZ 4.70 Ref Range: 4.50 - 5.30 mg/dL GLUCOSE 95 Ref Range: 70 - 110 mg/dL LACTIC ACID 0.87 Ref Range: 0.50 - 2.20 mmol/L URINALYSIS - Abnormal APPEARANCE Clear Ref Range: Clear COLOR Yellow Ref Range: Yellow PH 7.0 Ref Range: 4.8 - 8.0 SP GRAVITY 1.011 Ref Range: 1.003 - 1.030 GLU U QUAL Normal Ref Range: Normal BLOOD Negative Ref Range: Negative KETONES Negative Ref Range: Negative PROTEIN Negative Ref Range: Negative UROBILIN Normal Ref Range: Normal BILIRUBIN Negative Ref Range: Negative NITRITE Negative Ref Range: Negative LEUK DEVAN Negative Ref Range: Negative RBC/HPF <1 Ref Range: 0 - 3 HPF WBC/HPF 1 Ref Range: 0 - 5 HPF BACTERIA Few (*) Ref Range: Negative SQ EPITH 1 Ref Range: HPF HEPATIC FUNCTION PANEL (89566) (ALB,T.PRO,BILI T,BU/BC,ALT,AST,ALK PHOS) - Normal TOTAL BILI 0.4 Ref Range: 0.1 - 1.1 mg/dL BILI UNCON 0.2 Ref Range: 0.1 - 1.1 mg/dL BILI CONJ 0.0 Ref Range: 0.0 - 0.3 mg/dL T PROTEIN 7.5 Ref Range: 6.3 - 8.2 g/dL ALBUMIN 4.5 Ref Range: 3.5 - 5.0 g/dL ALK PHOS 83 Ref Range: 34 - 122 U/L ALTv 17 Ref Range: 5 - 35 U/L AST(SGOT) 25 Ref Range: 13 - 40 U/L LIPASE - Normal Imaging shows: CT ABDOMEN PELVIS W CONTRAST Final Result 1. No acute findings in the abdomen or pelvis. 2. Partially imaged bending groundglass and atelectasis in the lower lobes. End of report With respect to the lower lobe findings of the CAT scan, no respiratory symptoms on this patient, no hypoxia, no increased work of breathing. Reevaluation of this patient she feels considerably better than on arrival. We discussed that her urine was free of infection and that her abdominal pelvic CT had no significant acute findings. There did appear to be a large amount of gas, no obstruction. I have discussed strict return precautions with this patient and advised her if that she feels worse, develops fever, or has new symptoms she needs to return to the emergency department immediately. She is on board with this plan. Jose Guadalupe Campbell MD Faculty, Emergency Medicine Amount and/or Complexity of Data Reviewed Labs: ordered. Radiology: ordered. Risk OTC drugs. Prescription drug management. Parenteral controlled substances. Flowsheet Documentation: Scoring Tools: No data recorded Disposition/Condition: ED Disposition None Discharge Medications: Patient's Medications START taking these medications No medications on file CONTINUE taking these medications which have NOT [...] hours as needed for Pain (scale 4-6). ONDANSETRON 4 MG DISINTEGRATING TABLET Take 1 tablet by mouth every 8 (eight) hours as needed for Nausea and Vomiting (N/V). SERTRALINE (ZOLOFT) 50 MG TABLET Take 1 tablet by mouth in the morning. START taking Modified Medications as Prescribed No medications on file STOP taking these medications No medications on file Follow-up: Electronically signed by: Jose Guadalupe Campbell MD 05/11/23 9236 [facility] - [id number] 14:47:56 Pt given printed and verbal discharge instructions regarding generalized abdominal tenderness without rebound tenderness, bilateral flank pain, colitis, nausea, encouraged hydration, 2 Prescriptions sent. Discussed tramadol side affects and to avoid driving/operating machinery/or engaging in activities requiring alertness while taking. Pt verbalized understanding of instructions, pt awake alert oriented, resp reg unlabored, skin w/d,color appropriate for race, moves all ext well,pt encouraged to follow up with pcp and GI. Advised to seek medical attention for new/prolonged/worsening of symptoms, Symptoms remained. No adverse reaction to meds given in ER noted upon discharge PIV d'cd, dressing to site, catheter in tact. Awake, alert oriented, resp reg unlabored, skin w/d, pt leaving amb with steady gait, in no apparent distress, T [place] [id number] 12:48:49 Pt present to ED with c/o anahy flank pain radiating into lower abd, painful urination, and nausea since Sunday. Pt also reports a headache. 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 Exam Limited by: none Travel and Exposure Screening: Symptoms Does patient have any of these symptoms?: (not recorded) Exposure Screening Has patient had contact with someone with a communicable disease in the last month?: (not recorded) Diseases exposed to:: (not recorded) Is Patient ?: (not recorded) Exposure Date: (not recorded) Chief Complaint: Chief Complaint Patient presents with Flank Pain Abdominal [...] with a Tmax of 102-103 and a headache.She has been taking Tylenol 3-4 times per day "to get through work", with her last dose being at 5 AM today with some relief of the pain and fever. She reports similar symptoms in the past which she was told was due to a UTI. She denies any history of renal stones. She denies chest pain, shortness of breath, URI symptoms. Review of Systems: Review of Systems Constitutional: Positive for chills and fever. SEE HPI for other pertinent positives & negatives. HENT: Negative for congestion, sinus pressure and sore throat. Respiratory: Negative for cough, chest tightness and shortness of breath. Cardiovascular: Negative for chest pain, palpitations and leg swelling. Gastrointestinal: Positive for abdominal pain and nausea. Negative for blood in stool, diarrhea andvomiting. Genitourinary: Positive for dysuria, hematuria and flank pain. Negative for vaginal discharge and vaginal pain. Musculoskeletal: Negative for arthralgias, back pain and myalgias. Skin: Negative for rash and wound. Neurological: Positive for headaches. Negative for dizziness and weakness. Past Medical History/Immunizations: Past Medical History: Diagnosis Date Anemia unk Anxiety [...] received in last 5 years: Unknown Problem List: Patient Active Problem List Diagnosis Well woman exam Smoker S/P hysterectomy Dysuria Positive depression screening Enteritis History of bilateral tubal ligation BMI 25.0-25.9,adult Allergies: No Known Allergies Past Social History: Tobacco Use Every Day; 0.25 packs/day for 13.00 years; Types: Cigarettes Smokeless Tobacco: Never used smokeless tobacco. Comments: 3-4 cigarretes per day Alcohol Use Yes. Comments: on occasion Drug Use No. Sexual Activity Sexually active; Partners: Female; Control/Protection: Surgical. Comments: last sexual intercourse 10/30/2021 Past Surgical History: Past Surgical History: Procedure Laterality Date CYSTOSCOPY 07/06/2015 CYSTOSCOPY 07/07/2015 SALPINGECTOMY Bilateral 07/06/2015 Surgeon: [facility] III, MD; Location: [facility] TOTAL ABDOMINAL HYSTERECTOMY N/A 07/06/2015 Surgeon: [facility] III, MD; Location: [facility] Location TUBAL LIGATION tubal in 1994 Physical Exam: ED Triage Vitals [02/03/23 1251] Weight 54.4 kg (120 lb) Actual or estimated Height 1.524 m (5') BP (!) 116/92 Pulse 84 Resp 16 Temp 37.3 ?C (99.1 ?F) Temp src SpO2 95 % Measured on Room air Physical Exam Vitals and nursing note reviewed. Exam conducted with a immunologist present (Cherelle Morales RN). Constitutional: General: She [...] injury. There is no visible or palpable cervix. Musculoskeletal: General: No tenderness or deformity. Normal range [...] Cognition and memory normal. Radiology: (Reviewed by me) Hospital Encounter on 02/03/23 CT ABDOMEN PELVIS W CONTRAST Narrative EXAM: CT ABDOMEN/PELVIS WITH CONTRAST HISTORY: Abdominal pain, fever Abdominal pain, acute, nonlocalized bilateral flank pain - stone vs pyelo Patient complaining of bilateral flank pain radiating to the lower abdomen. Patient has painful urination. COMPARISON: CT dated 03/13/2022 TECHNIQUE AND FINDINGS: Contiguous axial imaging from the level of the lung bases through the proximal thighs was performed after the administration of intravenous contrast. Coronal and sagittal reconstructions were obtained. FINDINGS: LOWER THORAX: Mild subsegmental dependent basilar atelectasis. No cardiomegaly. LIVER: Subcentimeter hypodensity in the right hepatic lobe is too small to characterize but is likely a cyst. Normal contour. GALLBLADDER AND BILIARY TREE: No biliary ductal dilation. No gallbladder wall thickening. SPLEEN: No splenomegaly. PANCREAS: No ductal dilation or masses. ADRENAL GLANDS: No adrenal nodules. KIDNEYS: Bilateral symmetrical enhancement. No hydronephrosis, stones, or masses. GI TRACT: Circumferential wall thickening of the distal sigmoid colon with in the approximately same location as previous CT from 2021. No pathological bowel wall dilatation. The appendix is normal. PELVIS/BLADDER: Circumferential bladder wall haziness. PERITONEUM AND RETROPERITONEUM: No free air or fluid. LYMPH NODES: No lymphadenopathy. VESSELS: Unremarkable. BONES AND SOFT TISSUES: No suspicious lytic or sclerotic bony lesions. Impression 1. Circumferential wall thickening of the distal sigmoid colon in approximately the same location as 202, possibly representing colitis. Given persistent CT findings, further evaluation with colonoscopy on a nonemergent basis could be considered if not already performed. 2. Bladder wall haziness may be due to degree of bladder distention however cystitis can be considered. Preliminary Report Dictated by Resident: Jacob Treviño Lab Results (24h): (Reviewed by me) Recent Results (from the past 24 hour(s)) URINALYSIS [...] 0.01 - 0.07 10*3/uL COMP. METABOLIC PANEL ([id number]) Collection Time: 02/03/23 1:02 PM Result Value [...] 40 U/L eGFR 88.2 mL/min/1.73m2 Orders and Treatments: Orders Placed This Encounter Procedures CT ABDOMEN PELVIS W CONTRAST URINALYSIS LIPASE CBC WITH DIFF COMP. METABOLIC PANEL ([id number]) Orders Placed This Encounter Medications ketorolac (TORADOL) injection 30 mg ondansetron (ZOFRAN (PF)) injection 4 mg NaCl 0.9% (NS) bolus infusion 1,000 mL iopamidol (ISOVUE 370-500 mL) injection 70 mL HYDROcodone-acetaminophen (NORCO 5) 5-325 mg tablet 1 tablet traMADoL 50 mg tablet ondansetron 4 mg disintegrating tablet ED COURSE ED Course as of 02/03/23 1439 Sat Feb 03, 2023 1427 Vaginal exam done at this time. See physical exam above. All results discussed with patient, who voices understanding and agreement with the plan of care. Will discharge home on OTC pain meds with tramadol for breakthrough and also Zofran for nausea. Blanddiet. Encourage p.o. fluids. Rest. PCP follow-up with possible GI referral for colonoscopy. Return precautions given. [LS] 1409 [place] given. Will check vaginal exam. [LS] 1408 No evidence of cystitis on the urinalysis. Patient had no relief from the Toradol. RN to check and see if the patient has a ride home. [LS] 1408 CT ABDOMEN PELVIS W CONTRAST IMPRESSION 1. Circumferential wall thickening of the distal sigmoid colon in approximately the same location as 2021, possibly representing colitis. Given persistent CT findings, further evaluation with colonoscopy on a nonemergent basis could be considered if not already performed. 2. Bladder wall haziness may be due to degree of bladder distention however cystitis can be considered. Preliminary Report Dictated by Resident: Jacob Treviño [LS] 1340 URINALYSIS(!) Labs unremarkable [LS] 1340 LIPASE [LS] 1340 COMP. METABOLIC PANEL ([id number]) [LS] 1340 CBC WITH DIFF(!) [LS] ED Course User Index [LS] Maria Victoria García MD Diagnosis/Impression as of 02/03/23 1439 Generalized abdominal tenderness without rebound tenderness Bilateral flank pain Colitis Nausea Diagnosis/Impression: ICD-10-CM 1. Generalized abdominal tenderness without rebound tenderness R10.817 2. Flank pain R10.9 3. Bilateral flank pain R10.9 4. Colitis K52.9 5. Nausea R11.0 Disposition/Condition: ED Disposition ED Disposition Disch - Home Condition Stable Comment -- Discharge Medications: Patient's Medications START taking these medications ONDANSETRON 4 [...] as needed for Nausea and Vomiting (N/V). Follow-up: Contact information for follow-up [place] See Specialty: FM-FAMILY MEDICINE Relationship: PCP - General [address] [facility] [address] Instructions: As needed [facility] Special[facility]: G[facility] [address], [address] [facility] [address] Instructions: for a colonoscopy to evaluate the sigmoid colon abnormality seen on CT today and in 2021 MDM: Medical Decision Making DDx of abdominal pain includes obstruction, gastritis, ulcer, appendicitis, cholecystitis, colitis,diverticulitis/osis, pancreatitis, aortic disease, UTI, other infectious etiology Labs, IV fluid, Toradol, Zofran, CT A/P ordered. See ED course Problems Addressed: Bilateral flank pain: undiagnosed new problem with uncertain prognosis Colitis: chronic illness or injury Details: Uncertain prognosis Generalized abdominal tenderness without rebound tenderness: undiagnosed new problem with uncertainprognosis Nausea: self-limited or minor problem Amount and/or Complexity of Data Reviewed External Data Reviewed: labs and notes. Details: Most recent urine culture reviewed: Status: Final result Visible to patient: Yes (not seen) Dx: Pyelonephritis Specimen Information: URINE, CLEAN CATCH 0 Result Notes Urine Culture >100,000 CFU/mL Escherichia coli Resulting Agency: [...] HUGO Susceptible Trimethoprim/Sulfamethoxazole >2/38 ?g/mL... Resistant Susceptibility Comments Escherichia coli Nitrofurantoin is not recommended for use in treating pyelonephritis or systemic disease. Specimen Collected: 10/17/22 21:32 Last Resulted: 10/20/22 07:43 Labs: ordered. Decision-making details documented in ED Course. Radiology: ordered. Decision-making details documented in ED Course. Risk OTC drugs. Prescription drug management. History, physical exam findings, results of visit, differential diagnosis, medication regimens and plan of future care have been considered. Additional MDM may be found in the ED course. Differentialdiagnosis considered and final disposition made based on information gathered during evaluation andmay not be completely ruled out. Vital signs were rechecked before final disposition and determinedto be stable. Portions of this note were completed using [employer]. Occasional phonetic or grammatical errors may escape proofreading. Electronically signed by: Maria Victoria García M.D., [facility] Administrator [facility] Facility Clinical Professor of Emergency Medicine 02/03/2023 12:56 PM Maria Victoria García MD 02/03/23 1440 [facility]
[2024-12-26] MEDS ORDERED: METOCLOPRAMIDE 10 MG/2mL INJ ONE (11:33)
[2024-12-26] MEDS ORDERED: MECLIZINE HCL 12.5 MG TAB ONE (11:33)
[2024-12-26] MEDS ORDERED: ACETAMINOPHEN 500 MG TAB ONE (11:34)
[2024-12-26] MEDS ORDERED: DIAZEPAM 2 MG TABLET ONE (11:34)
[2024-12-26] MEDS ORDERED: NA CHLORIDE 0.9% 1,000 ML ONE (11:34)
--- NOTE | 2024-12-26 11:48 | RAD REPORT ---
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 Coronal an d sagittal reformatted images were created from the data set. One or more of the following dose reduction techniques were used: Automated exposure control, adjustment of the mA and/or kV according to patient size, and/or iterative reconstruction. Unless otherwise specified, incidental findings do not require dedicated imaging follow-up. [id number]. COMPARISON: No prior exams FINDINGS: INTRACRANIAL: No acute intracranial hemorrhage. No acute large vascular territory infarct. No hydroce phalus. No mass effect or midline shift. No significant white matter disease.Basal ganglia mineralization. VASCULATURE: No visualized abnormalities in the arteries or dural venous sinuses. SCALP/SKULL: No calvarial fracture identified. No acute soft tissue abnormality. SINUSES: The visualized paranasal sinuses are mostly clear. No significant mastoid fluid. IMPRESSION: No acute intracranial abnormality.
[2024-12-26 12:02] LABS: Absolute Lymphocytes (CBC) 3.1 K/uL (0.7-4.9); Hematocrit 34.6 % (36.0-45.0); Hemoglobin 11.7 g/dL (12.0-15.0); MCH 30.3 pg (27.0-35.0); MCHC 33.8 g/dL (32.0-36.0); MCV 89.6 fL (80-100); MPV 7.3 fL (7.6-11.3); Nucleated RBC Absolute Count 0.0 (0-0); Nucleated Red Blood Cells % 0.0 % (0-0); RBC Red Blood Cell Count 3.86 M/uL (3.86-4.86); White Blood Count 12.90 thou/uL (4.3-10.9)
[2024-12-26 12:03] LABS: ALT/SGPT 16 U/L (13-56); AST/SGOT 15 U/L (15-37); Albumin 3.6 g/dL (3.4-5.0); Albumin/Globulin Ratio 1.1 (1.1-1.8); Alkaline Phosphatase 91 U/L (45-117); Anion Gap 6.9 mEq/L (5.0-15.0); BUN Blood Urea Nitrogen 13 mg/dL (7-18); Globulin 3.2 g/dL (2.3-3.5); Glucose Level 97 mg/dL (74-106); Magnesium 2.2 mg/dL (1.6-2.4); NT PRO-BNP 23 pg/mL (<125); Potassium 3.9 mEq/L (3.5-5.1); Troponin High Sensitivity 3.4 pg/mL (<58.9)
[2024-12-26 12:05] LABS: Bilirubin Indirect, Calculated 0.0 mg/dL (0.2-0.8); D-Dimer 0.229 FEUug/mL (0-0.500); PT Prothrombin Time 11.2 SECONDS (10-13.0); Protime INR 0.99
--- NOTE | 2024-12-26 12:30 | ER ---
Nurse's Notes [facility] Name: Stephania Lobo Age: 54 yrs Sex: Female : 1970 Arrival Date: 12/26/2024 Time: 10:33 Bed 19 Private MD: Diagnosis: Other peripheral vertigo;Dyspnea Presentation: 12/26 10:59 Chief complaint: Patient states: she has had right sided chest pain that radiates to me1 right shoulder for a few days now. Pain 10/10 and heavy with SOB and nausea. This morning patient reports she had a "dizzy spell where here vision was blurred". Coronavirus screen: Vaccine status: Patient reports receiving the 2nd dose of the covid vaccine. Ebola Screen: No symptoms or risks identified at this time. Initial Sepsis Screen: Does the patient meet any 2 criteria? No. Patient's initial sepsis screen is negative. Does the patient have a suspected source of infection? No. Patient's initial sepsis screen is negative. Risk Assessment: Do you want to hurt yourself or someone else? Patient reports no desire to harm self or others. Onset of symptoms is unknown. 10:59 Method Of Arrival: Ambulatory ct1 10:59 Acuity: ANA 3 me1 Triage Assessment: 11:03 General: Appears uncomfortable, Behavior is calm, cooperative, appropriate for age. me1 Pain: Complains of pain in anterior aspect of right upper chest Pain radiates to anterior aspect of right shoulder Pain currently is 10 out of 10 on a pain scale. Quality of pain is described as heavy, Pain began 2-3 days ago. Is intermittent, Also complains of nausea, shortness of breath. EENT: No signs and/or symptoms were reported regarding the EENT system. Neuro: Level of Consciousness is awake, alert, obeys commands, Oriented to person, place, time, situation, Appropriate for age. Cardiovascular: Patient's skin is warm and dry. Cardiovascular: Reports chest pain. Respiratory: Airway is patent Respiratory effort is even, unlabored, Respiratory pattern is regular, symmetrical. Respiratory: Reports shortness of breath at rest on exertion since intermittently with right sided cp for the past few days. GI: Reports nausea, since with intermittent cp for the past few days. : No signs and/or symptoms were reported regarding the genitourinary system. Derm: Skin is intact, is healthy with good turgor, Skin is pink, warm \\T\\ dry. normal. Musculoskeletal: No signs and/or symptoms reported regarding the musculoskeletal system. Circulation, motion, and sensation intact. Range of motion: intact in all extremities. 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 - Infectious Disease History:: Denies. - Social history:: Smoking status: Patient reports the use of cigarette tobacco products, denies chronic smoking, but will smoke occasionally. Screenin:06 [facility] ED Fall Risk Assessment (Adult) History of falling in the last 3 months, me1 including since admission No falls in past 3 months (0 pts) Confusion or Disorientation No (0 pts) Intoxicated or Sedated No (0 pts) Impaired Gait No (0 pts) Mobility Assist Device Used No (0 pt) Altered Elimination No (0 pt) Score/Fall Risk Level 0 - 2 = Low Risk Maintained a safe environment, Provided non-skid footwear, Hourly rounding (assess needs \\T\\ fall precautionary measures) done. Abuse screen: Denies threats or abuse. Nutritional screening: No deficits noted. Tuberculosis screening: No symptoms or risk factors identified. Assessment: 11:06 General: See triage assessment. me1 Vital Signs: 10:59 BP 116 / 70; Pulse 68; Resp 18; Temp 98.1; Pulse Ox 100% ; Weight 58.97 kg; Height 5 me1 ft. 2 in. ; Pain 10/10; 11:00 BP 104 / 72; Pulse 70; Resp 18; Pulse Ox 100% ; me1 12:00 BP 101 / 60; Pulse 64; Resp 20; Pulse Ox 100% ; me1 12:30 BP 114 / 61; Pulse 62; Resp 20; Temp 98.3; Pulse Ox 97% ; me1 10:59 Body Mass Index 23.78 (58.97 kg, 157.48 cm) ct1 10:59 Pain Scale: [place] [facility] Course: 10:37 Patient arrived in ED. im 10:39 Markus Martines MD is Attending Physician. jr11 10:51 Jennifer Hernandez, RN is Primary Nurse. me1 11:03 Triage completed. me1 11:03 Arm band placed on Patient placed in an exam room. me1 11:06 Patient has correct armband on for positive identification. Bed in low position. Call me1 light in reach. Side rails up X2. Provided Education on: POC. Verbalized understanding.. Client placed on continuous cardiac and pulse oximetry monitoring. NIBP monitoring applied. monitoring specialist on. Pulse ox on. NIBP on. 11:06 No provider procedures requiring assistance completed. Patient maintains SpO2 me1 saturation greater than 95% on room air. 11:31 Inserted saline lock: 22 gauge in right antecubital area, using aseptic technique. ar8 Blood collected. Flushed with 10 mL NS Missed attempt(s): 22 gauge in right forearm. Bleeding controlled, band aid applied, catheter tip intact. 11:38 CT Head Brain wo Cont In Process Unspecified. EDMS 12:31 Aditya Faith MD is Referral Physician. jr11 12:58 IV discontinued, intact, bleeding controlled, No redness/swelling at site. Pressure me1 dressing applied. Administered Medications: 11:50 Drug: Diazepam PO 2 mg PO once Route: PO; me1 12:33 Follow up: Response: No adverse reaction; Anxiety decreased me1 11:50 Drug: Meclizine PO 25 mg PO once Route: PO; me1 12:33 Follow up: Response: No adverse reaction; Marked relief of symptoms me1 11:50 Drug: metoCLOPramide IVP 10 mg IVP once; over 1 to 2 minutes Route: IVP; Site: right me1 antecubital; 12:33 Follow up: Response: No adverse reaction; Nausea is decreased me1 11:50 Drug: NS 0.9% IV 1000 ml IV at 1000 ml once; to be given as a bolus over 60 minutes me1 Route: IV; Rate: 1000 ml; Site: right antecubital; 12:33 Follow up: Response: No adverse reaction; IV Status: Completed infusion me1 11:50 Drug: Acetaminophen PO 1000 mg PO once Route: PO; me1 12:32 Follow up: Response: No adverse reaction; Pain is decreased me1 Medication: 11:06 VIS not applicable for this client. me1 Outcome: 12:30 Discharge ordered by . jr11 12:58 Discharged to home ambulatory, with friend, me1 12:58 Condition: stable 12:58 Discharge instructions given to patient, Instructed on discharge instructions, follow up and referral plans. medication usage, Demonstrated understanding of instructions, follow-up care, medications, Prescriptions given X , :58 Patient left the ED. me1 Signatures: Dispatcher [employer] EDMarkus Hager MD MD jr11 Juliet Gonzales Michelle, RN RN me1 Dean Eller RN RN ar8
--- NOTE | 2024-12-26 12:31 | EDPHYS ---
Physician Documentation [facility] Name: Stephania Lobo Age: 54 yrs Sex: Female : 1970 Arrival Date: 12/26/2024 Time: 10:33 Bed 19 Private MD: ERENDIRA Physician Markus Martines HPI: 12/26 11:04 Chief Complaint: Dizziness, nausea, and shortness of breath. History of Present jr11 Illness: The patient presents with symptoms of dizziness, nausea, shortness of breath, and right-sided chest pain. These symptoms began this morning when the patient attempted to get up and make coffee, experiencing dizziness and blurred vision. The patient reports a history of nausea and bloating for the past two months, for which they have been taking prescribed medications by their primary doctor. The bloating becomes significant by the end of the day, resembling a nine-month appearance. The dizziness and blurred vision occurred again at the office, accompanied by worsening shortness of breath, particularly on the right side, which prompted the ER visit. The patient denies any previous history of vertigo or significant dizziness. They have a history of anxiety but have never been medicated for it. The patient reports no abdominal pain. Review of Systems: - Positive for dizziness, nausea, blurred vision, shortness of breath, and right-sided chest pain. - Reports not having abdominal pain. - ROS otherwise negative. . 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 - Infectious Disease History:: Denies. - Social history:: Smoking status: Patient reports the use of cigarette tobacco products, denies chronic smoking, but will smoke occasionally. Exam: 11:04 Constitutional: This is a well developed, well nourished patient who is awake, alert, jr11 and in no acute distress. Head/Face: Normocephalic, atraumatic. Eyes: Extra-ocular motions intact. Lids and lashes normal. Conjunctiva and sclera are non-icteric and not injected. Cornea within normal limits. Periorbital areas with no swelling, redness, or edema. ENT: Nares patent. No nasal discharge, no septal abnormalities noted. Oropharynx with no redness, swelling, or masses, exudates, or evidence of obstruction, uvula midline. Mucous membranes moist. Chest/axilla: Normal chest wall appearance and motion. Nontender with no deformity. No lesions are appreciated. Cardiovascular: Regular rate and rhythm with a normal S1 and S2. No gallops, murmurs, or rubs. Normal PMI, no JVD. No pulse deficits. Respiratory: Lungs have equal breath sounds bilaterally, clear to auscultation and percussion. No rales, rhonchi or wheezes noted. No increased work of breathing, no retractions or nasal flaring. Abdomen/GI: Soft, non-tender, with normal bowel sounds. No distension or tympany. No guarding or rebound. No evidence of tenderness throughout. Back: No spinal tenderness. No costovertebral tenderness. Full range of motion. Skin: Warm, dry with normal turgor. Normal color with no rashes, no lesions, and no evidence of cellulitis. MS/ Extremity: Pulses equal, no cyanosis. Neurovascular intact. Full, normal range of motion. Neuro: Awake and alert, GCS 15, oriented to person, place, time, and situation. No gross motor or sensory deficits. Vital Signs: 10:59 BP 116 / 70; Pulse 68; Resp 18; Temp 98.1; Pulse Ox 100% ; Weight 58.97 kg; Height 5 me1 ft. 2 in. ; Pain 10/10; 11:00 BP 104 / 72; Pulse 70; Resp 18; Pulse Ox 100% ; me1 12:00 BP 101 / 60; Pulse 64; Resp 20; Pulse Ox 100% ; me1 12:30 BP 114 / 61; Pulse 62; Resp 20; Temp 98.3; Pulse Ox 97% ; me1 10:59 Body Mass Index 23.78 (58.97 kg, 157.48 cm) me1 10:59 Pain Scale: Adult me1 MDM: 10:57 Medical Screening Exam initiated jr11 11:04 Differential diagnosis: Medical Decision Makin. Vertigo - Likely given the jr11 dizziness and exacerbation with head movement. 2. Anxiety - Possible contributor due to history but not treated with medication. 3. Gastroesophageal reflux disease (GERD) - Considered given nausea and bloating symptoms. 4. Pulmonary embolism - Less likely but life-threatening due to shortness of breath and chest pain. Plan: - Administer medication for dizziness. - Evaluate for other causes of shortness of breath and dizziness. - Monitor vital signs and perform a complete physical examination. - Consider further imaging or laboratory tests if symptoms persist or worsen. - Reassure patient and provide supportive care. 11:35 ED course: EKG interpreted by me shows normal sinus rhythm, normal axis, normal jr11 intervals, no acute ST changes.. 12:29 ED course: CT head to my read no bleed, Pt feeling better to f/u PCP, vertigo. 12/26 10:59 Order name: Basic Metabolic Panel; Complete Time: 12:15 12/26 10:59 Order name: CBC with Diff; Complete Time: 12:15 12/26 10:59 Order name: D-Dimer; Complete Time: 12:15 12/26 10:59 Order name: LFT's; Complete Time: 12:15 12/26 10:59 Order name: Magnesium; Complete Time: 12:15 12/26 10:59 Order name: NT PRO-BNP; Complete Time: 12:15 12/26 10:59 Order name: PT-INR; Complete Time: 12:15 12/26 10:59 Order name: Troponin HS; Complete Time: 12:15 12/26 10:59 Order name: CT Head Brain wo Cont; Complete Time: 12:15 12/26 10:59 Order name: Cardiac monitoring; Complete Time: 11:36 12/26 10:59 Order name: EKG - Nurse/Tech; Complete Time: 11:36 12/26 10:59 Order name: IV Saline Lock; Complete Time: 11:32 12/26 10:59 Order name: Labs collected and sent; Complete Time: 11:32 12/26 10:59 Order name: O2 Per Protocol; Complete Time: 11:36 12/26 10:59 Order name: O2 Sat Monitoring; Complete Time: 11:36 Administered Medications: 11:50 Drug: Diazepam PO 2 mg PO once Route: PO; me1 12:33 Follow up: Response: No adverse reaction; Anxiety decreased me1 11:50 Drug: Meclizine PO 25 mg PO once Route: PO; me1 12:33 Follow up: Response: No adverse reaction; Marked relief of symptoms me1 11:50 Drug: metoCLOPramide IVP 10 mg IVP once; over 1 to 2 minutes Route: IVP; Site: right me1 antecubital; 12:33 Follow up: Response: No adverse reaction; Nausea is decreased me1 11:50 Drug: NS 0.9% IV 1000 ml IV at 1000 ml once; to be given as a bolus over 60 minutes me1 Route: IV; Rate: 1000 ml; Site: right antecubital; 12:33 Follow up: Response: No adverse reaction; IV Status: Completed infusion me1 11:50 Drug: Acetaminophen PO 1000 mg PO once Route: PO; me1 12:32 Follow up: Response: No adverse reaction; Pain is decreased me1 Disposition Summary: 12/26/24 12:30 Discharge Ordered Notes: Location: Home [facility] Condition: Stable [facility] Diagnosis - Other peripheral vertigo jr11 - Dyspnea jr11 Followup: jr11 - With: Aditya Faith MD - When: 2 - 3 days - Reason: Recheck today's complaints Discharge Instructions: - Discharge Summary Sheet jr11 - Vertigo [facility] Forms: - Medication Reconciliation Form jr11 - Antibiotic Education jr11 - Prescription Opioid Use jr11 - Patient Portal Instructions jr11 - Leadership Thank You Letter jr11 Prescriptions: - Meclizine 25 mg Oral tablet - take 1 tablet ORAL route every 8 hours As needed dizziness; 30 tablet; Refills: [facility] 0, Product Selection Permitted Signatures: Dispatcher [employer] EDMarkus Hager MD MD jr11 Jennifer Hernandez RN RN me1 Corrections: (The following items were deleted from the chart) 11:00 10:59 BASIC METABOLIC PANEL+C.LAB.BRZ ordered. EDMS EDMS 11:00 10:59 CBC+H.LAB.BRZ ordered. EDMS EDMS 11:00 10:59 D-DIMER+COAG.LAB.BRZ ordered. EDMS EDMS 11:00 10:59 HEPATIC FUNCTION+C.LAB.BRZ ordered. EDMS EDMS 11:00 10:59 MAGNESIUM+C.LAB.BRZ ordered. EDMS EDMS 11:00 10:59 PROBNP+C.LAB.BRZ ordered. EDMS EDMS 11:00 10:59 PROTIME (+INR)+COAG.LAB.BRZ ordered. EDMS EDMS 11:00 10:59 Troponin High Sensitivity+C.LAB.BRZ ordered. EDMS EDMS 11:00 11:00 Chest Single View+RAD.RAD.BRZ ordered. EDMS EDMS 11:00 11:00 Head Brain Wo Cont+CT.RAD.BRZ ordered. EDMS EDMS
[2024-12-26 13:56] VITALS: BP 114/61; TEMP 98.3; O2SAT 97
== END 2024-12-26 12:58 | disposition home or self-care (01) ==
LOC: ER 10:33
DX: H81.399 Other peripheral vertigo, unspecified ear (principal); R06.00 Dyspnea, unspecified; F17.210 Nicotine dependence, cigarettes, uncomplicated
CPT/HCPCS: 96361; 93005; 85025; 80048; 36415; 83735; 85610; 85379; 80076; 84484; 83880; 70450; 96374; 99285; J8597; J2765; J7030

== ENCOUNTER 2024-12-31 16:22 | Emergency (ER) | payer OTHER ==
--- OUTSIDE RECORDS SUMMARY | 2024-12-31 16:30 | XMS REPORT | Continuity of Care Document ---
Author Name Unknown Address [address] [facility] [place] [address] [facility] Address [address] 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 Role Phone Bobby Felix ARGUETA Primary Care Physician Zaida Jiang Attending Clinician Unavail able Papito See Attending Clinician Unavailable ISABELL ANTONIO Attending Clinician Unavail able LUIS PEARSON Attending Clinician Unavailable LUIS PEASRON Attending Clinician Unavailable Kim Callejas DO Attending Clinician [phone] Luis Pearson MD Attending Clinician ROMINA GILES Attending Clinician Unavailable SANDY SCALES Attending Clinician Unavailab MT Myrick Attending Clinician Unavailable MT RIVERA Attending Clinician Unavailable STEPHANIE TRAN Attending Clinician Unavailab Stephanie Portillo DO Attending Clinician +[phone] Akinsipe CNP, Isabell Shay Attending Clinician + ALESIA LECHUGA Attending Clinician Unavailable Everette LEON, Alesia May Attending Clinician + [phone] RICHARDSON LEON Attending Clinician Unavailable DORichardson Attending Clinician +[phone] JOSE GUADALUPE CAMPBELL Attending Clinician Unavaila yaneth Doctor Unassigned, [place] Attending Clinician U siomaraailBRENNA Riley Attending Clinician Unav ailrashid Samuel MD, Brenna Cronin Attending Clinician + MARIA VICTORIA GARCÍA Attending Clinician Unavailab Maria Victoria Renteria MD Attending Clinician [phone] Maggie BARRERA Attending Clinician Unavailable Maggie Schwartz Attending Clinician [phone] HOANG ALFARO Attending Clinician Unavailable MEHREEN SETHI Attending Clinician Unavailable Mehreen Smith Attending Clinician [phone] ARIANNE SHAY Attending Clinician Unavailjose Shay MD, Arianne Andrews Attending Clinician [phone] RONIT SANTIAGO Attending Clinician Unavailab Ronit Lopez Attending Clinician + [phone] DAYANNA HANNON Attending Clinician Unavailable Dayanna Hannon MD Attending Clinician + [phone] DELL NOBLE Attending Clinician Unavailable Dell Noble MD Attending Clinician +[phone] DANIEL JACOBSON Attending Clinician Unavailable Daniel Wylie Attending Clinician [phone] Jennifer Riley Attending Clinician + [phone] Onur Goldstein MD Attending Clinician [phone] Glenis Sosa RN Attending Clinician Unavaila CLIVE Douglas Attending Clinician UnavailAtif Botello CNP Attending Clinician +[phone] [facility] NURSE, Clive N Attending Clinician Maddie HENRY, Delia Attending Clinician Unavailable Carlo HENRY, Tessa Attending Clinician Unavailjose Reynolds MD, Isaac Shay Attending Clinician [phone] KIM CALLEJAS Admitting Clinician Unavailab ALESIA Thompson Admitting Clinician Unavailable JOSE GUADALUPE CAMPBELL Admitting Clinician Unavaila BRENNA Mcleod Admitting Clinician Unav ailable SCHOENSTEIN, MARIA VICTORIA Admitting Clinician Unavailab zack SHAY, ARIANNE S Admitting Clinician UnavailDAYANNA Martin S Admitting Clinician Unavailable DELL NOBLE Admitting Clinician Unavailable Onur Goldstein MD Admitting Clinician RICHARDSON LEON Admitting Clinician Unavailable Payers Payer Name Policy Type Policy Number Effective Date Expirati on Date Source [employer] [id number] 2018 00:00:00 Problems Condition Name Condition Details Condition Category Status Onset Date Resolution Date Last Treatment Date Treating Clinician Comments Source Heartburn Heartburn Problem Active 11-05 00:00: 00 [facility] Reduced libido Reduced Libido Problem Active 18 00:00: 00 [facility] Gastritis Gastritis Disease Active 08-04 00:00: 00 [facility] Insomnia Insomnia Disease Active 08-04 00:00: 00 [facility] Osteoarthr itis of knee Osteoarthr itis of knee Disease Active 08-04 00:00: 00 [facility] Severe anxiety with panic Severe anxiety with panic Disease Active 17 00:00: 00 [facility] Abdominal pain of unknown etiology Abdominal pain of unknown etiology Disease Active 2022-05 2-22 00:00: 00 [facility] BMI 25.0-25.9, adult BMI 25.0-25.9, adult Disease Active 6-14 00:00: 00 [facility] Positive depression screening Positive depression screening Disease Active 2019-05 1-12 00:00: 00 [facility] Uterine leiomyoma Uterine Leiomyoma Problem Active 07-19 00:00: 00 [facility] Anemia Anemia Problem Active 3 00:00: 00 [facility] S/P hysterecto my S/P hysterecto my Disease Active 07-07 00:00: 00 [facility] Smoker Smoker Disease Active 2012-05 2 00:00: 00 [facility] Well woman exam Well woman exam Disease Active 2012-05 0- 00:00: 00 [facility] Vaginal mass Vaginal mass Problem Active [facility] Tobacco use Tobacco use disorder Problem Active [facility] [id number] Other chronic pain Problem [facility] [id number] Mixed hyperlipid emia Problem [facility] [id number] Neck pain Problem Commo n [facility] [id number] History of gross hematuria Problem [facility] [id number] Recurrent UTI Problem [facility] [id number] Gastroesop hageal reflux disease without esophagiti s Problem [facility] [id number] Cigarette nicotine dependence without complicati on Problem [facility] [id number] Seasonal allergies Problem [facility] [id number] Nephrolith iasis Problem [facility] [id number] Normocytic anemia Problem [facility] History of bilateral tubal ligation History of bilateral tubal ligation Disease Resolve d 6-14 00:00: 00 2023-09-18 00:00:00 2023-09-18 14:42:14 [facility] BMI 25.0-25.9, adult BMI 25.0-25.9, adult Disease Resolve d 6-14 00:00: 00 2023-09-18 00:00:00 2023-09-18 14:41:52 [facility] Enteritis Enteritis Disease Resolve d 2020-05 0-21 00:00: 00 2023-09-18 00:00:00 2023-09-18 14:42:06 [facility] Dysuria Dysuria Disease Resolve d 2020-1 1-12 00:00: 00 2023-09-18 00:00:00 2023-09-18 14:41:53 [facility] Acute cystitis without hematuria Acute cystitis without hematuria Disease Resolve d 06-10 00:00: 00 2020-04-01 00:00:00 2020-04-01 14:08:40 [facility] Dyspareuni a Dyspareuni a Disease Resolve d 02-17 00:00: 00 2020-04-01 00:00:00 2020-04-01 14:08:43 [facility] Uterine fibroid Uterine fibroid Disease Resolve d 07-07 00:00: 00 2015-07-27 00:00:00 2015-07-27 15:21:54 [facility] Anemia due to chronic blood loss Anemia due to chronic blood loss Disease Resolve d 07-07 00:00: 00 2015-07-27 00:00:00 2015-07-27 15:21:59 [facility] Abnormal uterine bleeding Abnormal uterine bleeding Disease Resolve d 06-10 00:00: 00 2015-07-27 00:00:00 2015-07-27 15:21:47 [facility] Enlarged uterus Enlarged uterus Disease Resolve d 02-17 00:00: 00 2015-07-27 00:00:00 2015-07-27 15:21:43 [facility] Abnormal vaginal bleeding Abnormal vaginal bleeding Disease Resolve d 02-17 00:00: 00 2015-06-10 00:00:00 2015-06-10 13:32:07 [facility] Urinary tract infection, site not specified Urinary tract infection, site not specified Disease Resolve d 2013-05 00:00: 00 2015-06-10 00:00:00 2015-06-10 13:31:47 [facility] Bacterial vaginosis Bacterial vaginosis Disease Resolve d 2012-05 00:00: 00 2015-06-10 00:00:00 2015-06-10 13:31:31 [facility] Irregular periods/me nstrual cycles Irregular periods/me nstrual cycles Disease Resolve d 2012-05 00:00: 00 2015-06-10 00:00:00 2015-06-10 13:31:44 [facility] Breast pain Breast pain Disease Resolve d 2012-05 00:00: 00 2013-05-09 00:00:00 2013-05-09 09:50:08 [facility] Urinary tract infection, site not specified Urinary tract infection, site not specified Disease Resolve d 2012-05 00:00: 00 2013-05-09 00:00:00 2013-05-09 09:50:11 [facility] Allergies, Adverse Reactions, Alerts Allergy Name Allergy Type Status Severity Reaction(s) Onset Date Inactive Date Treating Clinician Comments Source NO KNOWN ALLERGIE S Drug Class Active [facility] Social History Social Habit Start Date Stop Date Quantity Comments Source Gender identity [facility] Sexual orientation U [facility] History SDOH Alcohol Frequency [facility] History SDOH Alcohol Std Drinks [facility] History SDOH Alcohol Binge [facility] History of tobacco use Cigarette Smoker [facility]igned [facility] Alcoholic beverage intake 2023-09-28 00:00:00 2023-09-28 00:00:00 Current drinker of alcohol (finding) [facility] History of Social function 2023-09-18 00:00:00 2023-09-18 00:00:00 [facility] Tobacco use and exposure 2023-09-18 00:00:00 2023-09-18 00:00:00 Smokeless tobacco non-user [facility] Tobacco Comment 2023-09-18 00:00:00 2023-09-18 00:00:00 3-4 cigarretes per day [facility] Cigarettes smoked current (pack per day) - Reported 2023-09-18 00:00:00 2023-09-18 00:00:00 [facility] Cigarette pack-years 2023-09-18 00:00:00 2023-09-18 00:00:00 [facility] Alcohol intake 2023-09-18 00:00:00 2023-09-18 00:00:00 Current drinker of alcohol (finding) [facility] Exposure to SARS-CoV-2 (event) 2022-10-07 00:00:00 2022-10-17 17:31:00 Not sure [facility] Alcohol Comment 2013-03-12 00:00:00 2013-03-12 00:00:00 on occasion [facility] Smoking Status Start Date Stop Date Source Light Tobacco Smoker [facility] Smokes tobacco daily 2023-09-18 00:00:00 [facility] Medications Ordered Medication Name Filled Medication Name [...] 50 MCG/ACT Flonase Allergy Relief 50 MCG/ACT 2024- 1-10 00:00: 00 No 1{spray _in_eac h_nostr il} BID Flonase Allergy Relief 50 MCG/ACT ondansetron (ZOFRAN-ODT ) disintegrat ing tablet 4 mg 2023-05 07:15: 00 05-20 06:28 :00 No 4mg 4 mg, Oral, ONCE, 1 dose, On Sun05/20/24 at 0115, ANCELMO [facility] HYDROcodone -acetaminop hen (NORCO) 10-325 mg tablet 1 tablet 2023-05 07:15: 00 05-20 06:28 :00 No 1{tbl} 1 tablet, Oral, ONCE, 1 dose, On Sun05/20/24 at 0115, [facility] methocarbam oL (ROBAXIN) tablet 1,000 mg 2023-05 06:15: 00 05-20 06:28 :00 No 1000mg 1,000 mg, Oral, ONCE, 1 dose, On Sun05/20/24 at 0015, [facility] ketorolac (TORADOL) tablet 10 mg 2023-05 06:15: 00 05-20 06:28 :00 No 10mg 10 mg, Oral, ONCE, 1 dose, On Sun05/20/24 at 0015, [facility] dicyclomine (BENTYL) tablet 20 mg 2023-05 05:30: 00 05-20 06:28 :00 No 20mg 20 mg, Oral, ONCE, 1 dose, On Sun05/19/24 at 2330, [facility] methocarbam oL 500 mg tablet 2023-05 00:00: 00 Yes [id number] 500mg Take 1 tablet by mouth 4 (four) times daily as needed for Pain (scale 7-10). [facility] HYDROcodone -acetaminop hen 5-325 mg tablet 2023-05 00:00: 00 05-28 05:59 :00 No [id number] 1{tbl} Take 1 tablet by mouth every 6 (six) hours as needed for Pain (scale 7-10) for up to 7 days. Indication s: acute pain [facility] neomycin-po lymyxin-hyd rocort 3.5 mg-10,000 unit/mL-1 % ear drops,susp 2023-05 00:00: 00 Yes 4mg/mL- unit/mL -% [facility] Cipro 500 mg tablet 2023-05 00:00: 00 Yes 1mg [facility] ibuprofen 800 mg tablet 2023-05 00:00: 00 Yes 1mg [facility] ibuprofen 800 mg tablet 12-09 00:00: 00 Yes [id number] 800mg Take 1 tablet by mouth 3 (three) times daily as needed for Pain (scale 4-6). [facility] methylPREDN ISolone (MEDROL, AUBREE,) 4 mg tablets 12-09 00:00: 00 Yes [id number] Take by mouth SEE-INSTRU CTIONS. follow package directions [facility] loratadine- pseudoephed rine (CLARITIN-D 24 HOUR) 10-240 mg per 24 hr tablet 12-09 00:00: 00 Yes [id number] 1{tbl} Take 1 tablet by mouth in the morning. [facility] amoxicillin 500 mg tablet 12-09 00:00: 00 12-20 04:59 :00 No [id number] 500mg Take 1 tablet by mouth in the morning and 1 tablet in the evening. Do all this for 10 days. [facility] neomycin-po lymyxin-hyd rocort 3.5 mg-10,000 unit/mL-1 % ear drops,susp 11-12 00:00: 00 Yes 4mg/mL- unit/mL -% [facility] F [facility] Cipro 500 mg tablet 11-12 00:00: 00 Yes 1mg [facility]sten Taz [facility] ibuprofen 800 mg tablet 11-12 00:00: 00 Yes 1mg Torstendavid [facility] ofloxacin 0.3 % ear drops 10-18 00:00: 00 Yes 10% [facility] Cipro 500 mg tablet 10-18 00:00: 00 Yes 1mg [facility] cefuroxime axetil 500 mg tablet 10-18 00:00: 00 Yes 1mg [facility] ibuprofen 800 mg tablet 10-18 00:00: 00 Yes 1mg [facility] ondansetron HCl 4 mg tablet 10-18 00:00: 00 Yes 1mg [facility] ibuprofen (IBU) tablet 600 mg 09-28 04:00: 00 09-28 03:54 :00 No 600mg 600 mg, Oral, ONCE, 1 dose, On Sun09/28/23 at 2300, ANCELMO [facility] amoxicillin 875 mg tablet 2024-0 5-10 00:00: 00 10-05 04:59 :00 No [id number] 875mg Take 1 tablet by mouth in the morning and 1 tablet in the evening. Do all this for 7 days. [facility] dicyclomine (BENTYL) injection 20 mg 08-05 00:30: 00 08-05 00:26 :00 No 20mg 20 mg, Intramuscu lar, ONCE NOW, 1 dose, On Sun08/05/23 at 1930, Routine [facility] iopamidol (ISOVUE 370-500 mL) injection 80 mL 08-04 22:15: 00 08-04 22:30 :00 No [id number] 80mL 80 mL, Intravenou s, ONCE, 1 dose, On Sun08/05/23 at 1730, Routine [facility] FENTanyl PF (SUBLIMAZE (PF)) injection 50 mcg 08-04 22:15: 00 08-04 21:38 :00 No 50ug 50 mcg, Slow IV Push, ONCE, 1 dose, On Sun08/05/23 at 1715, Routine [facility] ketorolac (TORADOL) injection 30 mg 08-04 21:45: 00 08-04 20:57 :00 No 30mg 30 mg, Slow IV Push, ONCE, 1 dose, On Sun08/05/23 at 1645, Routine [facility] NaCl 0.9% (NS) bolus infusion 1,000 mL 08-04 21:30: 00 08-04 22:45 :00 No 1000mL at 999 mL/hr, 1,000 mL, IV Infusion, ONCE, 1 dose, On Sun08/05/23 at 1630, ANCELMO [facility] ondansetron (ZOFRAN (PF)) injection 4 mg 08-04 20:45: 00 08-04 20:57 :00 No 4mg 4 mg, Slow IV Push, ONCE, 1 dose, On Sun08/05/23 at 1545, ANCELMO [facility] SERTraline (ZOLOFT) 50 mg tablet 08-04 15:33: 29 08-04 00:00 :00 No 50mg Take 1 tablet by mouth in the morning. [facility] ALPRAZolam 0.25 mg tablet 08-04 15:33: 26 08-04 00:00 :00 No .25mg Take 1 tablet by mouth 2 (two) times daily as needed for Anxiety. [facility] dicyclomine 20 mg tablet 08-04 00:00: 00 09-17 00:00 :00 No [id number] 20mg Take 1 tablet by mouth 4 (four) times daily as needed for Abdominal pain. [facility] neomycin-po lymyxin-hyd rocortisone otic solution 08-04 00:00: 00 08-12 04:59 :00 No [id number] 3[drp] Place 3 Drops in right ear 4 (four) times daily for 7 days. [facility] polyethylen e glycol 3350 17 gram/dose powder 08-04 00:00: 00 08-10 04:59 :00 No [id number] 17g Take 17 g by mouth in the morning for 5 days. [facility] benzonatate 100 mg capsule 05-24 00:00: 00 Yes [id number] 100mg Take 1 capsule by mouth 3 (three) times daily as needed for Cough. [facility] chlorphenir amine 4 mg tablet 05-24 00:00: 00 Yes [id number] 4mg Take 1 tablet by mouth every 6 (six) hours as needed for Allergies or Runny nose. [facility] iopamidol (ISOVUE 370-500 mL) injection 65 mL 2022-05 05:15: 00 05-12 05:15 :00 No [id number] 65mL 65 mL, Intravenou s, ONCE, 1 dose, On Sun05/11/23 at 2315, Routine [facility] NaCl 0.9% (NS) bolus infusion 1,000 mL 2022-05 02:15: 00 05-12 03:45 :00 No 1000mL at 999 mL/hr, 1,000 mL, IV Infusion, ONCE, 1 dose, On Sun05/11/23 at 2015, ANCELMO [facility] morpHINE (4 mg/mL) injection 4 mg 2022-05 01:30: 00 05-12 01:44 :00 No 4mg 4 mg, Slow IV Push, ONCE, 1 dose, On Sun05/11/23 at 1930, STAT [facility] simethicone 80 mg chewable tablet 2022-05 00:00: 00 06-11 05:59 :00 No [id number] 80mg Take 1 tablet by mouth after meals and at bedtime for 30 days. [facility] dicyclomine 20 mg tablet 2022-05 00:00: 00 05-17 05:59 :00 No [id number] 20mg Take 1 tablet by mouth in the morning and 1 tablet in the evening. Do all this for 5 days. [facility] cyclobenzap rine (FLEXERIL) tablet 5 mg 2022-05 01:45: 00 03-07 00:57 :00 No 5mg 5 mg, Oral, ONCE NOW, 1 dose, On Sun03/06/23 at 2045, Routine [facility] ketorolac (TORADOL) injection 30 mg 2022-05 01:45: 00 03-07 00:56 :00 No 30mg 30 mg, Slow IV Push, ONCE, 1 dose, On Sun03/06/23 at 2045, Routine [facility] NaCl 0.9% (NS) bolus infusion 500 mL 2022-05 23:30: 00 03-07 00:57 :00 No 500mL at 999 mL/hr, 500 mL, IV Infusion, ONCE, 1 dose, On Sun03/06/23 at 1830, STAT [facility] acetaminoph en (TYLENOL) tablet 1,000 mg 2022-05 22:00: 00 03-06 23:46 :00 No 1000mg 1,000 mg, Oral, ONCE NOW, 1 dose, On Tu03/06/23 at 1700, Routine [facility] diphenhydrA MINE (BENADRYL) injection 25 mg 2022-05 21:15: 00 03-06 23:45 :00 No 25mg 25 mg, Slow IV Push, ONCE, 1 dose, On Tu03/06/23 at 1615, STAT [facility] metoclopram kelsie HCl (REGLAN) injection 10 mg 2022-05 21:15: 00 03-06 23:45 :00 No 10mg 10 mg, Slow IV Push, ONCE, 1 dose, On Tu03/06/23 at 1615, [facility] iopamidol (ISOVUE 370-500 mL) injection 70 mL 02-03 19:30: 00 02-03 19:30 :00 No [id number] 70mL 70 mL, Intravenou s, ONCE, 1 dose, On 02/03/23 at 1430, Routine [facility] HYDROcodone -acetaminop hen (NORCO 5) 5-325 mg tablet 1 tablet 02-03 19:15: 00 02-03 19:12 :00 No 1{tbl} 1 tablet, Oral, ONCE, 1 dose, On 02/03/23 at 1415, [facility] ketorolac (TORADOL) injection 30 mg 02-03 19:15: 00 02-03 18:12 :00 No 30mg 30 mg, Slow IV Push, ONCE, 1 dose, On 02/03/23 at 1415, [facility] NaCl 0.9% (NS) bolus infusion 1,000 mL 02-03 19:00: 00 02-03 19:11 :00 No 1000mL at 999 mL/hr, 1,000 mL, IV Infusion, ONCE, 1 dose, On 02/03/23 at 1400, [facility] ondansetron (ZOFRAN (PF)) injection 4 mg 2023-0 9-16 18:15: 00 02-03 18:11 :00 No 4mg 4 mg, Slow IV Push, ONCE, 1 dose, On Sun02/03/23 at 1315, [facility] ondansetron 4 mg disintegrat ing tablet 02-03 00:00: 00 08-04 00:00 :00 No [id number] 4mg Take 1 tablet by mouth every 8 (eight) hours as needed for Nausea and Vomiting (N/V). [facility] phenazopyri dine (PYRIDIUM) tablet 200 mg 10-18 01:15: 00 10-18 01:19 :00 No 200mg 200 mg, Oral, ONCE, 1 dose, On Sun10/17/22 at 2015, [facility] cefTRIAXone (ROCEPHIN) 1,000 mg in NaCl 0.9% (NS) 100 mL MINI-BAG 10-18 01:15: 10-18 01:49 :00 No 1000mg 1,000 mg, IV Piggyback, ONCE, 1 dose, On Sun10/17/22 at 2014, Administer over 30 Minutes, 100 mL
Reas on for Anti-Infec tive: Documented Infection< br>Documen colby Infection Site: Urine
D uration of Therapy: Other (see Comments) [facility] NaCl 0.9% (NS) bolus infusion 1,000 mL 10-18 00:45: 00 10-18 00:54 :00 No 1000mL at 999 mL/hr, 1,000 mL, IV Infusion, ONCE, 1 dose, On Sun10/17/22 at 1945, STAT [facility] ondansetron (ZOFRAN (PF)) injection 4 mg 10-18 00:45: 00 10-17 23:56 :00 No 4mg 4 mg, Slow IV Push, ONCE, 1 dose, On Sun10/17/22 at 1945, [facility] ibuprofen (IBU) tablet 600 mg 10-17 23:45: 00 10-17 23:56 :00 No 600mg 600 mg, Oral, ONCE, 1 dose, On Sun10/17/22 at 1845, ANCELMO [facility] ondansetron 4 mg disintegrat ing tablet 10-17 00:00: 00 Yes [id number] 4mg Take 1 tablet by mouth every 8 (eight) hours as needed for Nausea and Vomiting (N/V). [facility] ibuprofen 600 mg tablet 10-17 00:00: 00 08-04 00:00 :00 No [id number] 600mg Take 1 tablet by mouth every 6 (six) hours as needed for Pain (scale 4-6). [facility] cefdinir 300 mg capsule 10-17 00:00: 00 10-28 04:59 :00 No [id number] 300mg Take 1 capsule by mouth every 12 (twelve) hours for 10 days. [facility] acetaminoph en (TYLENOL) tablet 650 mg 08-06 07:15: 00 08-06 07:18 :00 No 650mg 650 mg, Oral, ONCE, 1 dose, On Sun08/06/22 at 0215, ANCELMO [facility] SERTraline (ZOLOFT) 50 mg tablet 08-06 03:25: 57 Yes 50mg Take 1 tablet by mouth in the morning. [facility] ALPRAZolam 0.25 mg tablet 08-06 03:25: 57 Yes .25mg Take 1 tablet by mouth 2 (two) times daily as needed for Anxiety. [facility] ibuprofen 600 mg tablet 08-06 00:00: 00 08-04 00:00 :00 No [id number] 600mg Take 1 tablet by mouth every 6 (six) hours as needed for Pain (scale 4-6) or Pain (scale 1-3). [facility] acetaminoph en (TYLENOL) tablet 1,000 mg 07-20 09:15: 00 07-20 08:15 :00 No 1000mg 1,000 mg, Oral, ONCE, 1 dose, On Sun07/20/22 at 0315, Routine [facility] maalox:diph enhydrAMINE :lidocaine 2 % viscous 1:1:1 ([facility]) oral suspension 15 mL 07-20 08:15: 00 07-20 08:16 :00 No 15mL 15 mL, Oral, ONCE, 1 dose, On Sun07/20/22 at 0215, Routine [facility] NaCl 0.9% (NS) bolus infusion 1,000 mL 07-20 07:30: 00 07-20 08:14 :00 No 1000mL at 999 mL/hr, 1,000 mL, IV Infusion, ONCE, 1 dose, On Sun07/20/22 at 0130, STAT [facility] ondansetron (ZOFRAN (PF)) injection 4 mg 07-20 06:30: 00 07-20 06:33 :00 No 4mg 4 mg, Slow IV Push, ONCE, 1 dose, On Sun07/20/22 at 0030, ANCELMO [facility] amoxicillin -clavulanat e 875-125 mg per tablet 07-20 00:00: 00 Yes [id number] 1{tbl} Take 1 tablet by mouth every 12 (twelve) hours. [facility] ondansetron 4 mg disintegrat ing tablet 07-20 00:00: 00 Yes [id number] 4mg Take 1 tablet by mouth every 8 (eight) hours as needed for Nausea and Vomiting (N/V). [facility] phenazopyri dine (PYRIDIUM) tablet 200 mg 05-23 17:15: 00 05-23 17:15 :00 No 200mg 200 mg, Oral, ONCE, 1 dose, On Sun05/23/22 at 1115, ANCELMO [facility] phenazopyri dine 200 mg tablet 05-23 00:00: 00 08-06 00:00 :00 No [id number] 200mg Take 1 tablet by mouth in the morning and 1 tablet at noon and 1 tablet in the evening. [facility] cephALEXin (KEFLEX) 500 mg capsule - 00:00: 00 05-31 05:59 :00 No [id number] 500mg Take 1 capsule by mouth in the morning and 1 capsule at noon and 1 capsule in the evening. Do all this for 7 days. [facility] piperacilli n-tazobacta m (ZOSYN) 3.375 g in NaCl 0.9% (NS) 50 mL MINI-BAG 2021-05 00:00: 00 03-14 00:43 :00 No 3.375g 3.375 g, IV Piggyback, ONCE, 1 dose, On Sun03/13/22 at 1900, Administer over 30 Minutes, 50 mL
Reas on for Anti-Infec tive: Documented Infection< br>Documen colby Infection Site: Abdominal< br>Duratio n of Therapy: 10 days [facility] iopamidol (ISOVUE 370-500 mL) injection 70 mL 2021-05 23:30: 00 03-13 23:30 :00 No [id number] 70mL 70 mL, Intravenou s, ONCE, 1 dose, On Sun03/13/22 at 1830, Routine [facility] ketorolac (TORADOL) injection 15 mg 2021-05 22:00: 00 03-13 21:33 :00 No 15mg 15 mg, Slow IV Push, ONCE, 1 dose, On Sun03/13/22 at 1700, Routine [facility] amoxicillin -clavulanat e 875-125 mg per tablet 2021-05 00:00: 00 03-24 04:59 :00 No [id number] 1{tbl} Take 1 tablet by mouth every 12 (twelve) hours for 10 days. [facility] ketorolac (TORADOL) injection 30 mg 01-22 03:30: 00 01-22 02:38 :00 No 30mg 30 mg, Slow IV Push, ONCE, 1 dose, On Sun01/21/22 at 2230, Routine [facility] iopamidol (ISOVUE 370-500 mL) injection 60 mL 01-22 02:30: 00 01-22 02:30 :00 No [id number] 60mL 60 mL, Intravenou s, ONCE, 1 dose, On 01/21/22 at 2130, Routine [facility] ondansetron (ZOFRAN (PF)) injection 4 mg 01-22 01:15: 00 01-22 01:15 :00 No 4mg 4 mg, Slow IV Push, ONCE, 1 dose, On 01/21/22 at 2015, ANCELMO [facility] NaCl 0.9% (NS) bolus infusion 500 mL 01-22 01:15: 00 01-22 02:35 :00 No 500mL at 999 mL/hr, 500 mL, IV Infusion, ONCE, 1 dose, On 01/21/22 at 2015, STAT [facility] cefdinir 300 mg capsule 01-21 00:00: 00 08-06 00:00 :00 No [id number] 300mg Take 1 capsule by mouth every 12 (twelve) hours. [facility] ketorolac 10 mg tablet 01-21 00:00: 00 08-06 00:00 :00 No [id number] 10mg Take 1 tablet by mouth every 6 (six) hours as needed for Pain (scale 4-6). [facility] metroNIDAZO LE 500 mg tablet 10-26 00:00: 00 08-06 00:00 :00 No [id number] 500mg Take 1 tablet by mouth 2 (two) times daily. [facility] cefdinir 300 mg capsule 10-26 00:00: 00 11-03 04:59 :00 No [id number] 300mg Take 1 capsule by mouth 2 (two) times daily for 7 days. [facility] doxycycline hyclate 100 mg capsule 08 00:00: 00 11-01 00:00 :00 No [id number] 100mg Take 1 capsule by mouth 2 (two) times daily. [facility] ondansetron 4 mg disintegrat ing tablet 6-08 00:00: 00 11-01 00:00 :00 No [id number] 4mg Take 1 tablet by mouth every 8 (eight) hours as needed for Nausea and Vomiting (N/V). [facility] amoxicillin -clavulanat e 875-125 mg per tablet 2020-05 00:00: 00 11-01 00:00 :00 No [id number] 1{tbl} Take 1 tablet by mouth every 12 (twelve) hours. [facility] ofloxacin 0.3 % otic drops 2020-05 00:00: 00 11-01 00:00 :00 No [id number] 5[drp] Place 5 Drops in right ear 2 (two) times daily. [facility] neomycin-po lymyxin-hyd rocortisone 3.5-10,000- 1 mg/mL-unit/ mL-% otic susp 2020-05 00:00: 00 11-01 00:00 :00 No [id number] 4[drp] Place 4 Drops in right ear 4 (four) times daily. [facility] ciprofloxac in HCl 500 mg tablet 2020-05 00:00: 00 11-01 00:00 :00 No [id number] 500mg Take 1 tablet by mouth 2 (two) times daily. [facility] phenazopyri dine 200 mg tablet 2020-05 00:00: 00 11-01 00:00 :00 No [id number] 200mg Take 1 tablet by mouth 3 (three) times daily. [facility] guaiFENesin (MUCINEX) 600 mg tablet 2020-05 00:00: 00 11-01 00:00 :00 No [id number] 600mg Take 1 tablet by mouth every 12 (twelve) hours. [facility] Kenalog (Triamcinol one) Kenalog (Triamcinol one) 07-15 00:00: 00 No 40mg [facility] melatonin melatonin No melatonin [facility] ondansetron HCl 4 mg tablet TAKE 1 TABLET BY MOUTH ONCE DAILY NEEDED ondansetron HCl 4 mg tablet TAKE 1 TABLET BY MOUTH ONCE DAILY NEEDED No ondansetro n HCl 4 mg tablet TAKE 1 TABLET BY MOUTH ONCE DAILY NEEDED [facility] pantoprazol e 40 mg tablet,rosie [...] HOUR BEFORE MORNING MEAL FOR 30 DAYS [facility] tramadol 50 mg tablet TAKE 1 TABLET BY MOUTH ONCE DAILY NEEDED tramadol 50 mg tablet TAKE 1 TABLET BY MOUTH ONCE DAILY NEEDED No tramadol 50 mg tablet TAKE 1 TABLET BY MOUTH ONCE DAILY NEEDED [facility] Benadryl Benadryl No Benadryl [facility] Immunizations Ordered Immunization Name Filled Immunization Name Date Status Comments Source Pneumococcal Polysaccharide, PPSV23 (PNEUMOVAX) 2023-12-10 18:02:00 Completed [facility] Influenza Virus Vaccine Quad IM 3+ YRS 2023-12-10 18:02:00 Completed [facility] Influenza Virus Vaccine Quad IM, Preserv and ABX Free 6 MO-64 YRS (FLUCELVAX) 2023-12-10 18:02:00 Completed [facility] SARS-COV-2 COVID-19 PFIZER VACCINE 2023-12-10 18:02:00 Completed [facility] Pneumococcal Polysaccharide, PPSV23 (PNEUMOVAX) 2023-09-28 22:49:00 Completed [facility] Influenza Virus Vaccine Quad IM 3+ YRS 2023-09-28 22:49:00 Completed [facility] Influenza Virus Vaccine Quad IM, Preserv and ABX Free 6 MO-64 YRS (FLUCELVAX) 2023-09-28 22:49:00 Completed [facility] SARS-COV-2 COVID-19 PFIZER VACCINE 2023-09-28 22:49:00 Completed [facility] Pneumococcal Polysaccharide, PPSV23 (PNEUMOVAX) 2023-09-18 13:15:00 Completed [facility] Influenza Virus Vaccine Quad IM, Preserv and ABX Free 6 MO-64 YRS (FLUCELVAX) 2023-09-18 13:15:00 Completed [facility] SARS-COV-2 COVID-19 PFIZER VACCINE 2023-09-18 13:15:00 Completed [facility] Influenza Virus Vaccine Quad IM 3+ YRS 2023-09-18 13:15:00 Completed [facility] Pneumococcal Polysaccharide, PPSV23 (PNEUMOVAX) 2023-08-05 15:10:00 Completed [facility] Influenza Virus Vaccine Quad IM 3+ YRS 2023-08-05 15:10:00 Completed [facility] Influenza Virus Vaccine Quad IM, Preserv and ABX Free 6 MO-64 YRS (FLUCELVAX) 2023-08-05 15:10:00 Completed [facility] SARS-COV-2 COVID-19 PFIZER VACCINE 2023-08-05 15:10:00 Completed [facility] Pneumococcal Polysaccharide, PPSV23 (PNEUMOVAX) 2023-05-24 19:16:00 Completed [facility] Influenza Virus Vaccine Quad IM 3+ YRS 2023-05-24 19:16:00 Completed [facility] Influenza Virus Vaccine Quad IM, Preserv and ABX Free 6 MO-64 YRS (FLUCELVAX) 2023-05-24 19:16:00 Completed [facility] SARS-COV-2 COVID-19 PFIZER VACCINE 2023-05-24 19:16:00 Completed [facility] Pneumococcal Polysaccharide, PPSV23 (PNEUMOVAX) 2023-05-11 18:59:00 Completed [facility] Influenza Virus Vaccine Quad IM 3+ YRS 2023-05-11 18:59:00 Completed [facility] Influenza Virus Vaccine Quad IM, Preserv and ABX Free 6 MO-64 YRS (FLUCELVAX) 2023-05-11 18:59:00 Completed [facility] SARS-COV-2 COVID-19 PFIZER VACCINE 2023-05-11 18:59:00 Completed [facility] Pneumococcal Polysaccharide, PPSV23 (PNEUMOVAX) 2023-05-11 00:00:00 Completed [facility] Influenza Virus Vaccine Quad IM 3+ YRS 2023-05-11 00:00:00 Completed [facility] Influenza Virus Vaccine Quad IM, Preserv and ABX Free 6 MO-64 YRS (FLUCELVAX) 2023-05-11 00:00:00 Completed [facility] SARS-COV-2 COVID-19 PFIZER VACCINE 2023-05-11 00:00:00 Completed [facility] Pneumococcal Polysaccharide, PPSV23 (PNEUMOVAX) 2023-03-06 14:57:00 Completed [facility] Influenza Virus Vaccine Quad IM 3+ YRS 2023-03-06 14:57:00 Completed [facility] Influenza Virus Vaccine Quad IM, Preserv and ABX Free 6 MO-64 YRS (FLUCELVAX) 2023-03-06 14:57:00 Completed [facility] SARS-COV-2 COVID-19 PFIZER VACCINE 2023-03-06 14:57:00 Completed [facility] Pneumococcal Polysaccharide, PPSV23 (PNEUMOVAX) 2022-08-24 00:00:00 Completed [facility] Influenza Virus Vaccine Quad IM 3+ YRS 2022-08-24 00:00:00 Completed [facility] Influenza Virus Vaccine Quad IM, Preserv and ABX Free 6 MO-64 YRS (FLUCELVAX) 2022-08-24 00:00:00 Completed [facility] SARS-COV-2 COVID-19 PFIZER VACCINE 2022-08-24 00:00:00 Completed [facility] Pneumococcal Polysaccharide, PPSV23 (PNEUMOVAX) 2021-05-16 00:00:00 Completed [facility] Influenza Virus Vaccine Quad IM 3+ YRS 2021-05-16 00:00:00 Completed [facility] Influenza Virus Vaccine Quad IM, Preserv and ABX Free 6 MO-64 YRS (FLUCELVAX) 2021-05-16 00:00:00 Completed [facility] SARS-COV-2 COVID-19 PFIZER VACCINE 2021-05-16 00:00:00 Completed [facility] Influenza Virus Vaccine Quad IM, Preserv and ABX Free 6 MO-64 YRS 2021-03-12 00:00:00 Completed [facility] SARS-COV-2 COVID-19 PFIZER VACCINE 2021-03-12 00:00:00 Completed [facility] Influenza Virus Vaccine Quad IM, Preserv and ABX Free 6 MO-64 YRS 2021-03-12 00:00:00 Completed [facility] SARS-COV-2 COVID-19 PFIZER VACCINE 2021-03-12 00:00:00 Completed [facility] Influenza Virus Vaccine Quad IM, Preserv and ABX Free 6 MO-64 YRS 2021-03-12 00:00:00 Completed [facility] SARS-COV-2 COVID-19 PFIZER VACCINE 2021-03-12 00:00:00 Completed [facility] Influenza Virus Vaccine Quad IM, Preserv and ABX Free 6 MO-64 YRS 2021-03-12 00:00:00 Completed [facility] SARS-COV-2 COVID-19 PFIZER VACCINE 2021-03-12 00:00:00 Completed [facility] Influenza Virus Vaccine Quad IM, Preserv and ABX Free 6 MO-64 YRS 2021-03-12 00:00:00 Completed [facility] SARS-COV-2 COVID-19 PFIZER VACCINE 2021-03-12 00:00:00 Completed [facility] Influenza Virus Vaccine Quad IM, Preserv and ABX Free 6 MO-64 YRS 2021-03-12 00:00:00 Completed [facility] SARS-COV-2 COVID-19 PFIZER VACCINE 2021-03-12 00:00:00 Completed [facility] Influenza Virus Vaccine Quad IM, Preserv and ABX Free 6 MO-64 YRS 2021-03-12 00:00:00 Completed [facility] SARS-COV-2 COVID-19 PFIZER VACCINE 2021-03-12 00:00:00 Completed [facility] Influenza Virus Vaccine Quad IM, Preserv and ABX Free 6 MO-64 YRS 2021-03-12 00:00:00 Completed [facility] SARS-COV-2 COVID-19 PFIZER VACCINE 2021-03-12 00:00:00 Completed [facility] Influenza Virus Vaccine Quad IM, Preserv and ABX Free 6 MO-64 YRS 2021-03-12 00:00:00 Completed [facility] SARS-COV-2 COVID-19 PFIZER VACCINE 2021-03-12 00:00:00 Completed [facility] Influenza Virus Vaccine Quad IM, Preserv and ABX Free 6 MO-64 YRS (FLUCELVAX) 2021-03-12 00:00:00 Completed [facility] SARS-COV-2 COVID-19 PFIZER VACCINE 2021-03-12 00:00:00 Completed [facility] Pneumococcal Polysaccharide, PPSV23 (PNEUMOVAX) 2020-07-29 00:00:00 Completed [facility] Influenza Virus Vaccine Quad IM 3+ YRS 2020-07-29 00:00:00 Completed [facility] Influenza Virus Vaccine Quad .5 mL IM 6+ MO 2020-04-01 00:00:00 Completed [facility] Influenza Virus Vaccine Quad .5 mL IM 6+ MO 2020-04-01 00:00:00 Completed [facility] Influenza Virus Vaccine Quad .5 mL IM 6+ MO 2020-04-01 00:00:00 Completed [facility] Influenza Virus Vaccine Quad .5 mL IM 6+ MO 2020-04-01 00:00:00 Completed [facility] Influenza Virus Vaccine Quad .5 mL IM 6+ MO 2020-04-01 00:00:00 Completed [facility] Influenza Virus Vaccine Quad .5 mL IM 6+ MO 2020-04-01 00:00:00 Completed [facility] Influenza Virus Vaccine Quad .5 mL IM 6+ MO 2020-04-01 00:00:00 Completed [facility] Influenza Virus Vaccine Quad .5 mL IM 6+ MO 2020-04-01 00:00:00 Completed [facility] Influenza Virus Vaccine Quad .5 mL IM 6+ MO 2020-04-01 00:00:00 Completed [facility] Influenza Virus Vaccine Quad .5 mL IM 6+ MO (FLUZONE/FLULAVAL/F LUARIX) 2020-04-01 00:00:00 Completed [facility] Influenza Virus Vaccine Quad .5 mL IM 6+ MO (FLUZONE/FLULAVAL/F LUARIX) 2020-04-01 00:00:00 Completed [facility] Kenalog (Triamcinolone) Kenalog (Triamcinolone) 2019-07-29 11:43:00 Completed [facility] Kenalog (Triamcinolone) Kenalog (Triamcinolone) 2018-07-15 11:45:00 Completed [facility] Afluria Afluria 2018-06-19 10:52:00 Completed [facility] Afluria Afluria 2018-06-19 00:00:00 Completed [facility] Pneumococcal Polysaccharide, PPSV23 (PNEUMOVAX) 2015-07-09 00:00:00 Completed [facility] Influenza Virus Vaccine Quad IM 3+ YRS 2015-07-09 00:00:00 Completed [facility] Pneumococcal Polysaccharide, PPSV23 (PNEUMOVAX) 2015-07-09 00:00:00 Completed [facility] Influenza Virus Vaccine Quad IM 3+ YRS 2015-07-09 00:00:00 Completed [facility] Pneumococcal Polysaccharide, PPSV23 (PNEUMOVAX) 2015-07-09 00:00:00 Completed [facility] Influenza Virus Vaccine Quad IM 3+ YRS 2015-07-09 00:00:00 Completed [facility] Pneumococcal Polysaccharide, PPSV23 (PNEUMOVAX) 2015-07-09 00:00:00 Completed [facility] Influenza Virus Vaccine Quad IM 3+ YRS 2015-07-09 00:00:00 Completed [facility] Pneumococcal Polysaccharide, PPSV23 (PNEUMOVAX) 2015-07-09 00:00:00 Completed [facility] Influenza Virus Vaccine Quad IM 3+ YRS 2015-07-09 00:00:00 Completed [facility] Pneumococcal Polysaccharide, PPSV23 (PNEUMOVAX) 2015-07-09 00:00:00 Completed [facility] Influenza Virus Vaccine Quad IM 3+ YRS 2015-07-09 00:00:00 Completed [facility] Pneumococcal Polysaccharide, PPSV23 (PNEUMOVAX) 2015-07-09 00:00:00 Completed [facility] Influenza Virus Vaccine Quad IM 3+ YRS 2015-07-09 00:00:00 Completed [facility] Pneumococcal Polysaccharide, PPSV23 (PNEUMOVAX) 2015-07-09 00:00:00 Completed [facility] Influenza Virus Vaccine Quad IM 3+ YRS 2015-07-09 00:00:00 Completed [facility] Pneumococcal Polysaccharide, PPSV23 (PNEUMOVAX) 2015-07-09 00:00:00 Completed [facility] Influenza Virus Vaccine Quad IM 3+ YRS 2015-07-09 00:00:00 Completed [facility] Pneumococcal Polysaccharide, PPSV23 (PNEUMOVAX) 2015-07-09 00:00:00 Completed [facility] Influenza Virus Vaccine Quad IM 3+ YRS 2015-07-09 00:00:00 Completed [facility] Boostrix (Tdap) Boostrix (Tdap) Unknown Completed [facility] Vital Signs Vital Name Observation Time Observation Value Comments S ource Height 2024-11-05 00:00:00 62 [in_i] [facility] Systolic 2024-11-05 00:00:00 107 mm[Hg] [facility] BP Diastolic 2024-11-05 00:00:00 66 mm[Hg] [facility] height 2024-10-27 15:15:00 62 [in_i] Commo n [facility] weight 2024-10-27 15:15:00 123.4 [lb_av] Co mmon [facility] temperature 2024-10-27 15:15:00 97.9 [degF] Com mon [facility] bmi 2024-10-27 15:15:00 22.57 kg/m2 Comm on [facility] oximetry 2024-10-27 15:15:00 98 % Commo n [facility] respiratory rate 2024-10-27 15:15:00 16 /min [facility] blood pressure systolic 2024-10-27 15:15:00 122 mm[Hg] [facility] blood pressure diastolic 2024-10-27 15:15:00 60 mm[Hg] [facility] height 2024-08-21 09:30:00 62 [in_i] Commo n [facility] weight 2024-08-21 09:30:00 121.8 [lb_av] Co mmon [facility] temperature 2024-08-21 09:30:00 97.7 [degF] Com mon [facility] bmi 2024-08-21 09:30:00 22.28 kg/m2 Comm on [facility] oximetry 2024-08-21 09:30:00 99 % Commo n [facility] respiratory rate 2024-08-21 09:30:00 18 /min [facility] blood pressure systolic 2024-08-21 09:30:00 136 mm[Hg] [facility] blood pressure diastolic 2024-08-21 09:30:00 80 mm[Hg] [facility] height 2024-07-25 14:30:00 62 [in_i] Commo n [facility] weight 2024-07-25 14:30:00 121 [lb_av] Comm on [facility] temperature 2024-07-25 14:30:00 97.7 [degF] Com [facility] bmi 2024-07-25 14:30:00 22.13 kg/m2 Comm on [facility] oximetry 2024-07-25 14:30:00 96 % Commo n [facility] blood pressure systolic 2024-07-25 14:30:00 98 mm[Hg] [facility] blood pressure diastolic 2024-07-25 14:30:00 60 mm[Hg] Common [facility] height 2024-07-10 14:30:00 62 [in_i] Commo n [facility] weight 2024-07-10 14:30:00 121.6 [lb_av] Co mmon [facility] temperature 2024-07-10 14:30:00 98.0 [degF] Com [facility] bmi 2024-07-10 14:30:00 22.24 kg/m2 Comm on [facility] oximetry 2024-07-10 14:30:00 97 % Commo n [facility] respiratory rate 2024-07-10 14:30:00 16 /min [facility] blood pressure systolic 2024-07-10 14:30:00 110 mm[Hg] Common [facility] blood pressure diastolic 2024-07-10 14:30:00 58 mm[Hg] [facility] height 2024-05-30 13:15:00 62 [in_i] Commo n [facility] weight 2024-05-30 13:15:00 116 [lb_av] Comm on [facility] temperature 2024-05-30 13:15:00 97.8 [degF] Com mon [facility] bmi 2024-05-30 13:15:00 21.21 kg/m2 Comm on [facility] oximetry 2024-05-30 13:15:00 97 % Commo n [facility] blood pressure systolic 2024-05-30 13:15:00 112 mm[Hg] [facility] blood pressure diastolic 2024-05-30 13:15:00 60 mm[Hg] [facility] Systolic blood pressure 2024-05-20 06:28:00 118 mm[Hg] [facility] Diastolic blood pressure 2024-05-20 06:28:00 75 mm[Hg] [facility] Heart rate 2024-05-20 06:28:00 63 /[facility] 2024-05-20 06:28:00 37.06 Laura [facility] Respiratory rate 2024-05-20 06:28:00 15 /min [facility] Oxygen saturation in Arterial blood by Pulse oximetry 2024-05-20 06:28:00 100 /min [facility] Body height 2024-05-20 01:33:00 157.5 cm [facility] Body weight 2024-05-20 01:33:00 54.976 kg [facility] BMI 2024-05-20 01:33:00 22.17 kg/m2 [facility] Systolic blood pressure 2023-12-10 23:00:00 118 mm[Hg] [facility] Diastolic blood pressure 2023-12-10 23:00:00 77 mm[Hg] [facility] Heart rate 2023-12-10 23:00:00 70 /min [facility] Body temperature 2023-12-10 23:00:00 37.5 Laura [facility] Respiratory rate 2023-12-10 23:00:00 18 /min [facility] Body height 2023-12-10 23:00:00 157.5 cm [facility] Body weight 2023-12-10 23:00:00 58.968 kg [facility] BMI 2023-12-10 23:00:00 23.78 kg/m2 [facility] Oxygen saturation in Arterial blood by Pulse oximetry 2023-12-10 23:00:00 100 /min [facility] Systolic blood pressure 2023-09-29 03:43:00 119 mm[Hg] [facility] Diastolic blood pressure 2023-09-29 03:43:00 79 mm[Hg] [facility] Heart rate 2023-09-29 03:43:00 72 /min [facility] Body temperature 2023-09-29 03:43:00 37.17 Laura [facility] Respiratory rate 2023-09-29 03:43:00 18 /min [facility] Body height 2023-09-29 03:43:00 157.5 cm [facility] Body weight 2023-09-29 03:43:00 58.968 kg [facility] BMI 2023-09-29 03:43:00 23.78 kg/m2 [facility] Oxygen saturation in Arterial blood by Pulse oximetry 2023-09-29 03:43:00 99 /min [facility] Systolic blood pressure 2023-09-18 18:26:00 118 mm[Hg] [facility] Diastolic blood pressure 2023-09-18 18:26:00 73 mm[Hg] [facility] Heart rate 2023-09-18 18:26:00 71 /min [facility] Body temperature 2023-09-18 18:26:00 36.61 Laura [facility] Respiratory rate 2023-09-18 18:26:00 18 /min [facility] Body height 2023-09-18 18:26:00 157.5 cm [facility] Body weight 2023-09-18 18:26:00 57.244 kg [facility] BMI 2023-09-18 18:26:00 23.08 kg/m2 [facility] Systolic blood pressure 2023-08-06 00:30:00 112 mm[Hg] [facility] Diastolic blood pressure 2023-08-06 00:30:00 67 mm[Hg] [facility] Heart rate 2023-08-06 00:30:00 64 /min [facility] Respiratory rate 2023-08-06 00:30:00 19 /min [facility] Oxygen saturation in Arterial blood by Pulse oximetry 2023-08-06 00:30:00 94 /min [facility] Body temperature 2023-08-05 20:08:00 36.72 Laura [facility] Body height 2023-08-05 20:08:00 157.5 cm [facility] Body weight 2023-08-05 20:08:00 54.432 kg [facility] BMI 2023-08-05 20:08:00 21.95 kg/m2 [facility] Systolic blood pressure 2023-05-25 01:09:00 129 mm[Hg] [facility] Diastolic blood pressure 2023-05-25 01:09:00 80 mm[Hg] [facility] Heart rate 2023-05-25 01:09:00 73 /min [facility] Body temperature 2023-05-25 01:09:00 36.72 Laura [facility] Respiratory rate 2023-05-25 01:09:00 18 /min [facility] Body height 2023-05-25 01:09:00 152.4 cm [facility] Body weight 2023-05-25 01:09:00 58.968 kg [facility] BMI 2023-05-25 01:09:00 25.39 kg/m2 [facility] Oxygen saturation in Arterial blood by Pulse oximetry 2023-05-25 01:09:00 100 /min [facility] Systolic blood pressure 2023-05-12 05:30:00 96 mm[Hg] [facility] Diastolic blood pressure 2023-05-12 05:30:00 66 mm[Hg] [facility] Heart rate 2023-05-12 05:30:00 59 /min [facility] Respiratory rate 2023-05-12 05:30:00 17 /min [facility] Oxygen saturation in Arterial blood by Pulse oximetry 2023-05-12 05:30:00 97 /min [facility] Body temperature 2023-05-12 00:56:00 37.22 Laura [facility] Systolic blood pressure 2023-03-07 02:30:00 135 mm[Hg] [facility] Diastolic blood pressure 2023-03-07 02:30:00 84 mm[Hg] [facility] Heart rate 2023-03-07 02:30:00 61 /min [facility] Body temperature 2023-03-07 02:30:00 36.67 Laura [facility] Respiratory rate 2023-03-07 02:30:00 18 /min [facility] Oxygen saturation in Arterial blood by Pulse oximetry 2023-03-07 02:30:00 97 /min [facility] Body height 2023-03-06 19:55:00 152.4 cm [facility] Body weight 2023-03-06 19:55:00 54.432 kg [facility] BMI 2023-03-06 19:55:00 23.44 kg/m2 [facility] Systolic blood pressure 2023-02-03 19:12:00 109 mm[Hg] [facility] Diastolic blood pressure 2023-02-03 19:12:00 67 mm[Hg] [facility] Heart rate 2023-02-03 19:12:00 66 /min [facility] Respiratory rate 2023-02-03 19:12:00 10 /min [facility] Oxygen saturation in Arterial blood by Pulse oximetry 2023-02-03 19:12:00 99 /min [facility] Body temperature 2023-02-03 17:51:00 37.28 Laura [facility] Body height 2023-02-03 17:51:00 152.4 cm [facility] Body weight 2023-02-03 17:51:00 54.432 kg [facility] BMI 2023-02-03 17:51:00 23.44 kg/m2 [facility] Systolic blood pressure 2022-10-18 02:25:00 99 mm[Hg] [facility] Diastolic blood pressure 2022-10-18 02:25:00 60 mm[Hg] [facility] Heart rate 2022-10-18 02:25:00 58 /min Unive [facility] Respiratory rate 2022-10-18 02:25:00 16 /min [facility] Oxygen saturation in Arterial blood by Pulse oximetry 2022-10-18 02:25:00 96 /min [facility] Body temperature 2022-10-17 22:33:00 37 Laura [facility] Body height 2022-10-17 22:33:00 152.4 cm [facility] Body weight 2022-10-17 22:33:00 58.605 kg [facility] BMI 2022-10-17 22:33:00 25.23 kg/m2 [facility] Systolic blood pressure 2022-08-06 06:45:00 161 mm[Hg] [facility] Diastolic blood pressure 2022-08-06 06:45:00 98 mm[Hg] [facility] Heart rate 2022-08-06 06:45:00 124 /min Unive [facility] Body temperature 2022-08-06 06:45:00 37.22 Laura [facility] Respiratory rate 2022-08-06 06:45:00 16 /min [facility] Body height 2022-08-06 06:45:00 157.5 cm [facility] Body weight 2022-08-06 06:45:00 58.968 kg Univ [facility] BMI 2022-08-06 06:45:00 23.78 kg/m2 Univ [facility] Oxygen saturation in Arterial blood by Pulse oximetry 2022-08-06 06:45:00 99 /min [facility] Systolic blood pressure 2022-07-20 07:06:00 116 mm[Hg] [facility] Diastolic blood pressure 2022-07-20 07:06:00 72 mm[Hg] [facility] Heart rate 2022-07-20 07:06:00 68 /min Unive [facility] Body temperature 2022-07-20 07:06:00 36.78 Laura [facility] Respiratory rate 2022-07-20 07:06:00 16 /min [facility] Body weight 2022-07-20 07:06:00 61.236 kg Univ [facility] BMI 2022-07-20 07:06:00 24.69 kg/m2 [facility] Oxygen saturation in Arterial blood by Pulse oximetry 2022-07-20 07:06:00 99 /min [facility] Systolic blood pressure 2022-05-23 16:16:00 112 mm[Hg] [facility] Diastolic blood pressure 2022-05-23 16:16:00 78 mm[Hg] [facility] Heart rate 2022-05-23 16:16:00 76 /min Unive [facility] Body temperature 2022-05-23 16:16:00 37.11 Laura [facility] Respiratory rate 2022-05-23 16:16:00 20 /min [facility] Body height 2022-05-23 16:16:00 157.5 cm Univ [facility] Body weight 2022-05-23 16:16:00 58.968 kg Univ [facility] BMI 2022-05-23 16:16:00 23.78 kg/m2 Univ [facility] Oxygen saturation in Arterial blood by Pulse oximetry 2022-05-23 16:16:00 98 /min [facility] Systolic blood pressure 2022-03-14 00:39:00 108 mm[Hg] [facility] Diastolic blood pressure 2022-03-14 00:39:00 72 mm[Hg] [facility] Heart rate 2022-03-14 00:39:00 71 /min Unive [facility] Respiratory rate 2022-03-14 00:39:00 21 /min [facility] Oxygen saturation in Arterial blood by Pulse oximetry 2022-03-14 00:39:00 97 /min [facility] Body temperature 2022-03-13 20:20:00 37 Laura [facility] Body height 2022-03-13 20:20:00 165.1 cm Univ [facility] Body weight 2022-03-13 20:20:00 58.968 kg [facility] BMI 2022-03-13 20:20:00 21.63 kg/m2 Univ [facility] Systolic blood pressure 2022-01-22 02:49:00 115 mm[Hg] [facility] Diastolic blood pressure 2022-01-22 02:49:00 77 mm[Hg] [facility] Heart rate 2022-01-22 02:49:00 74 /min Unive [facility] Respiratory rate 2022-01-22 02:49:00 16 /min [facility] Oxygen saturation in Arterial blood by Pulse oximetry 2022-01-22 02:49:00 99 /min [facility] Body temperature 2022-01-22 00:43:00 36.39 Laura [facility] Body weight 2022-01-22 00:43:00 58.968 kg Univ [facility] BMI 2022-01-22 00:43:00 25.39 kg/m2 [facility] Diastolic blood pressure 2021-11-01 20:30:00 66 mm[Hg] [facility] Heart rate 2021-11-01 20:30:00 62 /min Unive [facility] Body temperature 2021-11-01 20:30:00 36.33 Laura [facility] Respiratory rate 2021-11-01 20:30:00 16 /min [facility] Body height 2021-11-01 20:30:00 152.4 cm [facility] Body weight 2021-11-01 20:30:00 58.514 kg [facility] BMI 2021-11-01 20:30:00 25.19 kg/m2 [facility] Systolic blood pressure 2021-11-01 20:30:00 117 mm[Hg] [facility] height 2020-05-06 11:20:00 60 [in_i] Commo n [facility] weight 2020-05-06 11:20:00 120 [lb_av] Comm on [facility] temperature 2020-05-06 11:20:00 98.5 [degF] Com [facility] bmi 2020-05-06 11:20:00 23.43 kg/m2 Comm on [facility] blood pressure systolic 2020-05-06 11:20:00 125 mm[Hg] [facility] blood pressure diastolic 2020-05-06 11:20:00 78 mm[Hg] Common [facility] height 2018-09-26 11:15:00 60 [in_i] Commo n [facility] weight 2018-09-26 11:15:00 120.2 [lb_av] Co mmon [facility] temperature 2018-09-26 11:15:00 98.7 [degF] Com mon [facility] bmi 2018-09-26 11:15:00 23.47 kg/m2 Comm on [facility] oximetry 2018-09-26 11:15:00 100 % Commo n [facility] respiratory rate 2018-09-26 11:15:00 17 /min Common [facility] blood pressure systolic 2018-09-26 11:15:00 113 mm[Hg] [facility] blood pressure diastolic 2018-09-26 11:15:00 56 mm[Hg] [facility] BP Systolic 2024-05-01 15:19:00 110 mm[Hg] Step [...] Source MAMMO, screening, digital, bilateral 2024-11-05 00:00:00 [facility] PVR 2024-08-21 00:00:00 [facility] ABDOMEN PELVIS WO CONTRAST 2024-05-20 04:30:49 Kim Callejas [facility] URINALYSIS 2024-05-20 04:23:00 Kim Callejas [facility] BASIC METABOLIC PANEL (NA, K, CL, CO2, GLUCOSE, BUN, CREATININE, CA) 2024-05-20 03:28:00 Kim Callejas [facility] XR CHEST 1 VW 2024-05-20 02:05:09 Kim Callejas [facility] POCT URINALYSIS 2023-09-18 18:36:00 Isabell Antonio [facility] CT ABDOMEN PELVIS W CONTRAST 2023-08-05 22:17:16 Alesia Lechuga [facility] COMP. METABOLIC PANEL (78709) 2023-08-05 20:54:00 Alesia Lechuga [facility] CBC WITH DIFF 2023-08-05 20:54:00 Alesia Lechuga [facility] URINALYSIS 2023-08-05 20:14:00 Alesia Lechuga [facility] CONSENT/REFUSAL FOR DIAGNOSIS AND TREATMENT 2023-08-05 20:02:14 Doctor Unassigned, [place] [facility] URINALYSIS 2023-05-25 01:18:00 Richardson Leon [facility] RAPID INFLUENZA A/B 2023-05-25 01:18:00 Paula Leon [facility] COVID-19 (ID NOW RAPID TESTING) 2023-05-25 01:18:00 Richardson Leon [facility] CONSENT/REFUSAL FOR DIAGNOSIS AND TREATMENT 2023-05-25 00:58:09 Doctor Unassigned, [place] [facility] CT ABDOMEN PELVIS W CONTRAST 2023-05-12 04:27:58 Jose Guadalupe Campbell [facility] AC PANEL 21 + LACTIC ACID 2023-05-12 01:50:00 Jose Guadalupe Campbell [facility] LIPASE 2023-05-12 01:43:00 Jose Guadalupe Campbell [facility] HEPATIC FUNCTION PANEL (67934) (ALB,T.PRO,BILI T,BU/BC,ALT,AST,ALK PHOS) 2023-05-12 01:43:00 Shannan [facility] BASIC METABOLIC PANEL (NA, K, CL, CO2, GLUCOSE, BUN, CREATININE, CA) 2023-05-12 01:43:00 Shannan [facility] CBC WITH DIFF 2023-05-12 01:43:00 Shannan [facility] URINALYSIS 2023-05-12 01:43:00 Jose Guadalupe Campbell U [facility] NOTICE OF PRIVACY PRACTICES 2023-05-12 00:47:32 Doctor Unassigned, [place] [facility] CONSENT/REFUSAL FOR DIAGNOSIS AND TREATMENT 2023-05-12 00:47:02 Doctor Unassigned, [place] [facility] CT HEAD WO CONTRAST 2023-03-06 21:50:00 Brenna Romero [facility] ASSIGNMENT OF BENEFITS 2023-03-06 21:20:15 Docto r Unassigned, [place] [facility] CONSENT/REFUSAL FOR DIAGNOSIS AND TREATMENT 2023-03-06 19:45:09 Doctor Unassigned, [place] [facility] CT ABDOMEN PELVIS W CONTRAST 2023-02-03 18:23:00 Maria Victoria García [facility] LIPASE 2023-02-03 18:02:00 Maria Victoria García [facility] COMP. METABOLIC PANEL ([id number]) 2023-02-03 18:02:00 Maria Victoria García [facility] CBC WITH DIFF 2023-02-03 18:02:00 Maria Victoria Garcaí [facility] URINALYSIS 2023-02-03 18:02:00 Maria Victoria García [facility] CONSENT/REFUSAL FOR DIAGNOSIS AND TREATMENT 2023-02-03 17:46:56 Doctor Unassigned, [place] [facility] RAPID STREP SCREEN FOR GROUP A 2022-10-17 23:55:00 Maggie Barrera [facility] RAPID INFLUENZA A/B 2022-10-17 23:55:00 Maggie Barrera [facility] COVID-19 (ID NOW RAPID TESTING) 2022-10-17 23:55:00 Maggie Barrera [facility] URINALYSIS 2022-10-17 22:49:00 Stephanie Tran [facility] CONSENT/REFUSAL FOR DIAGNOSIS AND TREATMENT 2022-10-17 22:26:18 Doctor Unassigned, [place] [facility] ED SPLINT APPLICATION 2022-08-06 07:55:17 Rosa Lechuga [facility] CONSENT/REFUSAL FOR DIAGNOSIS AND TREATMENT 2022-08-06 06:39:48 Doctor Unassigned, [place] [facility] COMP. METABOLIC PANEL ([id number]) 2022-07-20 06:32:00 Mehreen Sethi [facility] CBC WITH DIFF 2022-07-20 06:32:00 Mehreen Sethi [facility] URINALYSIS 2022-07-20 06:32:00 [facility] RAPID INFLUENZA A/B 2022-07-20 06:32:00 Mehreen Sethi [facility] COVID-19 (ID NOW RAPID TESTING) 2022-07-20 06:32:00 Mehreen Sethi [facility] CONSENT/REFUSAL FOR DIAGNOSIS AND TREATMENT 2022-07-20 05:24:16 Doctor Unassigned, [place] [facility] URINALYSIS 2022-05-23 17:09:00 Richardson Leon [facility] CONSENT/REFUSAL FOR DIAGNOSIS AND TREATMENT 2022-05-23 16:02:43 Doctor Unassigned, [place] [facility] CT ABDOMEN PELVIS W CONTRAST 2022-03-13 22:32:00 Arianne Shay [facility] LIPASE 2022-03-13 21:32:00 Arianne Shay [facility] HEPATIC FUNCTION PANEL ([id number]) (ALB,T.PRO,BILI T,BU/BC,ALT,AST,ALK PHOS) 2022-03-13 21:32:00 Arianne Shay [facility] BASIC METABOLIC PANEL (NA, K, CL, CO2, GLUCOSE, BUN, CREATININE, CA) 2022-03-13 21:32:00 Arianne Shay [facility] CBC WITH DIFF 2022-03-13 21:32:00 [facility] 2022-03-13 20:25:00 Richardson Leon [facility] CONSENT/REFUSAL FOR DIAGNOSIS AND TREATMENT 2022-03-13 19:50:11 Doctor Unassigned, [place] [facility] CT ABDOMEN PELVIS W CONTRAST 2022-01-22 01:34:54 Brenna Samuel [facility] LIPASE 2022-01-22 01:17:00 Brenna Samuel [facility] COMP. METABOLIC PANEL ([id number]) 2022-01-22 01:17:00 Brenna Samuel [facility] CBC WITH DIFF 2022-01-22 01:17:00 Brenna Samuel [facility] URINALYSIS 2022-01-22 00:50:00 Brenna Samuel [facility] NOTICE OF PRIVACY PRACTICES 2022-01-22 00:38:08 Doctor Unassigned, [place] [facility] CONSENT/REFUSAL FOR DIAGNOSIS AND TREATMENT 2022-01-22 00:36:29 Doctor Unassigned, [place] [facility] PAP SMEAR-LIQUID BASED-CP 2021-11-01 21:11:00 Ronit Santiago [facility] Hysterectomy [facility] Start Date/Time End Date/Time Encounter Type Admission Type Attending Clinicians Care Facility Care Department Encounter ID Source 2024-07-08 13:40:00 Outpatient WalesahsaZaida doty [facility] [id number] [facility] 2024-05-30 14:03:00 Outpatient WaleadamZaida [facility] [id number] [facility] 2024-05-29 16:04:00 [facility] [id number] [facility] 2021-06-15 12:14:07 [facility] [id number] 2021-06-15 11:33:20 Outpatient See, [facility] [id number] [facility] 2021-06-15 11:29:10 [facility] [id number] [facility] 2021-06-15 11:27:31 [facility] [id number] [facility] 2021-06-15 11:27:13 Outpatient See, [facility] [id number] [facility] 2021-06-15 11:12:57 Outpatient See, [facility] [id number] [facility] 2021-03-22 08:37:29 Emergency [facility] [id number] [facility] 2021-03-21 10:37:33 Emergency [facility] [id number] [facility] 2021-03-20 21:58:58 Emergency [facility] [id number] [facility] 2021-03-20 11:47:40 Emergency [facility] [id number] [facility] 2021-03-20 05:05:20 Emergency [facility] [id number] [facility] ity [facility] 2021-03-19 21:53:05 Emergency [facility] [id number] [facility] 2021-03-19 11:06:33 Emergency [facility] [id number] [facility] 2021-03-18 20:23:30 Emergency [facility] [id number] [facility] 2021-03-18 03:19:07 Emergency [facility] [id number] [facility] 2021-03-17 13:12:53 Emergency [facility] [id number] [facility] 2024-11-05 00:00:00 2024-11-05 00:00:00 ELLIE Torrez: [address], [address], [place] [address] , Ph. [facility] - [id number] brooklynn Taylor* [id number] [facility] 2024-10-27 00:00:00 2024-10-27 00:00:00 (ESTPT) Establishe d Patient STLMLC STLMLC [id number] [facility] 2024-09-17 15:00:00 2024-09-17 15:00:00 Outpatient R ISABELL ANTONIO [facility] [id number] [facility] 2024-08-21 00:00:00 2024-08-21 00:00:00 OFFICE VISIT NEW PT LEVEL 3 STLMLC STLMLC [id number] [facility] 2024-08-14 00:00:00 2024-08-14 00:00:00 OFFICE VISIT ESTAB PT LEVEL 3 STLMLC STLMLC [id number] [facility] 2024-08-14 00:00:00 2024-08-14 00:00:00 (TEL) STLMLC STLMLC [id number] [facility] 2024-07-28 00:00:00 2024-07-28 00:00:00 (TEL) STLMLC STLMLC [id number] [facility] 2024-07-28 00:00:00 2024-07-28 00:00:00 (TEL) STLMLC STLMLC [id number] [facility] 2024-07-28 00:00:00 2024-07-28 00:00:00 (TEL) STLMLC STLMLC [id number] [facility] 2024-07-25 00:00:00 2024-07-25 00:00:00 OFFICE VISIT ESTAB PT LEVEL 4 STLMLC STLMLC [id number] [facility] 2024-07-12 00:00:00 2024-07-12 00:00:00 (TEL) STLMLC STLMLC [id number] [facility] 2024-07-11 00:00:00 2024-07-11 00:00:00 (TEL) STLMLC STLMLC [id number] [facility] 2024-07-10 00:00:00 2024-07-10 00:00:00 OFFICE VISIT ESTAB PT LEVEL 3 STLMLC STLMLC [id number] [facility] 2024-05-30 00:00:00 2024-05-30 00:00:00 OFFICE VISIT NEW PT LEVEL 4 STLMLC STLMLC [id number] [facility] 2024-05-19 19:36:00 2024-05-20 00:36:00 Emergency LUIS MAN [facility] [id number] [facility] 2024-05-19 19:36:00 2024-05-20 00:36:00 Emergency Kim Callejas Brent J [facility] 1.2.840.114 350.1.13.10 4.2.7.2.686 [id number] [facility] 2024-05-01 15:17:21 2024-05-01 15:17:21 Outpatient S[facility] [id number] Torsten F Hunter 2024-05-01 00:00:00 2024-05-01 00:00:00 Outpatient Visit [facility] [id number] Torsten F Hunter 2024-04-09 09:45:00 2024-04-09 09:45:00 Outpatient ROMINA DUPONT [facility] [id number] [facility] 2023-12-10 18:02:00 2023-12-10 18:42:00 Emergency X MT RIVERA ERICCA [facility] ERT [id number] [facility] 2023-12-10 18:02:00 2023-12-10 18:42:00 Emergency Mt Rivera [facility] 1.2.840.114 350.1.13.10 4.2.7.2.686 [id number] [facility] 2023-11-13 17:43:02 2023-11-13 17:43:02 Outpatient SFA [facility] [id number] Torsten Harrison 2023-11-13 00:00:00 2023-11-13 00:00:00 Outpatient Visit [facility] [id number] Torsten Harrison 2023-10-18 15:40:52 2023-10-18 15:40:52 Outpatient SFA [facility] [id number] Torsten Harrison 2023-10-18 00:00:00 2023-10-18 00:00:00 Outpatient Visit [facility] [id number] Torsten Harrison 2023-09-28 22:49:00 2023-09-28 23:06:00 Emergency STEPHANIE WILL [facility] ERT [id number] [facility] 2023-09-28 22:49:00 2023-09-28 23:06:00 Emergency Stephanie Tran [facility] 1..840.114 350.1.13.10 4.2.7.2.686 [id number] [facility] 2023-09-18 13:15:00 2023-09-18 14:05:19 Outpatient R ISABELL ANTONIO [facility] [id number] [facility] 2023-09-18 13:15:00 2023-09-18 14:05:19 Office Visit Isabell Antonio [facility] G[facility] SUPER[facility] 1.2.840.114 350.1.13.10 4.2.7.2.686 [id number] [facility] 2023-08-05 15:10:00 2023-08-05 20:05:00 Emergency X ALESIA LECHUGA [facility] ERT [id number] [facility] 2023-08-05 15:10:00 2023-08-05 20:05:00 Emergency Alesia Lechuga [facility] 1.2840.114 350.1.13.10 4.2.7.2.686 [id number] [facility] 2023-05-24 19:16:00 2023-05-24 20:50:00 Emergency X RICHARDSON [facility] ERT [id number] [facility] 2023-05-24 19:16:00 2023-05-24 20:50:00 [facility] 1.2840.114 350.1.13.10 4.2.7.2.686 [id number] [facility] 2023-05-11 18:59:00 2023-05-12 00:02:00 Emergency X LACI Bejarano [facility] ERT [id number] [facility] 2023-05-11 18:59:00 2023-05-12 00:02:00 Emergency Laci bejarano [facility] 1.2840.114 350.1.13.10 4.2.7.2.686 [id number] [facility] 2023-05-11 00:00:00 2023-05-11 00:00:00 Orders Only Doctor Unassigned, [place] [facility] 1.2840.114 350.1.13.10 4.2.7.2.686 [id number] [facility] 2023-03-06 14:57:00 2023-03-06 21:46:00 Emergency X BRENNA SAMUEL [facility] ERT [id number] [facility] 2023-03-06 14:57:00 2023-03-06 21:46:00 Emergency Brenna Samuel [facility] 1.2.840.114 350.1.13.10 4.2.7.2.686 [id number] [facility] 2023-02-03 12:53:00 2023-02-03 14:49:00 Emergency X MARIA VICTORIA GARCÍA [facility] ERT [id number] [facility] 2023-02-03 12:53:00 2023-02-03 14:49:00 Emergency Maria Victoria García [facility] 1..840.114 350.1.13.10 4.2.7.2.686 [id number] [facility] 2022-10-17 17:35:00 2022-10-17 21:37:00 Emergency X Maggie BARRERA [facility] ERT [id number] [facility] 2022-10-17 17:35:00 2022-10-17 21:37:00 Emergency Maggie Barrera [facility] 1.2.840.114 350.1.13.10 4.2.7.2.686 [id number] [facility] 2022-10-10 09:10:00 2022-10-10 09:10:00 Outpatient HOANG KEYS [facility] [id number] [facility] 2022-08-24 00:00:00 2022-08-24 00:00:00 Patient Secure Msg Doctor Unassigned, [place] [facility] 1..840.114 350.1.13.10 4.2.7.2.686 [id number] [facility] 2022-08-06 01:52:00 2022-08-06 03:25:00 Emergency X ALESIA LECHUGA [facility] ERT [id number] [facility] 2022-08-06 01:52:00 2022-08-06 03:25:00 Emergency Alesia Lechuga [facility] 1.2.840.114 350.1.13.10 4.2.7.2.686 [id number] [facility] 2022-07-19 23:34:00 2022-07-20 02:20:00 Emergency X MEHREEN SETHI [facility] ERT [id number] [facility] 2022-07-19 23:34:00 2022-07-20 02:20:00 Emergency Mehreen Sethi S [facility] 1.2.840.114 350.1.13.10 4.2.7.2.686 [id number] [facility] 2022-05-23 10:17:00 2022-05-23 12:52:00 Emergency X RICHARDSON LEON [facility] ERT [id number] [facility] 2022-05-23 10:17:00 2022-05-23 12:52:00 Emergency Richardson Leon [facility] 1.2.840.114 350.1.13.10 4.2.7.2.686 [id number] [facility] 2022-05-23 00:00:00 2022-05-23 00:00:00 Orders Only Doctor Unassigned, [place] [facility] 1.2.840.114 350.1.13.10 4.2.7.2.686 [id number] [facility] 2022-03-13 15:26:00 2022-03-13 19:56:00 Emergency X ARIANNE SHAY [facility] ERT [id number] [facility] 2022-03-13 15:26:00 2022-03-13 19:56:00 Emergency Arianne Shay [facility] 1.2.840.114 350.1.13.10 4.2.7.2.686 [id number] [facility] 2022-01-30 07:12:34 2022-01-30 23:59:00 Outpatient RONIT URIBE [facility] [id number] [facility] 2022-01-30 07:12:34 2022-01-30 23:59:00 Hospital Encounter Ronit Santiago [facility] 1.2.840.114 350.1.13.10 4.2.7.2.686 [id number] [facility] 2022-01-21 19:52:00 2022-01-21 21:51:00 Emergency X BRENNA SAMUEL [facility] ERT [id number] [facility] 2022-01-21 19:52:00 2022-01-21 21:51:00 Emergency Brenna Samuel Roseanne [facility] [id number] [facility] 2021-11-01 14:30:00 2021-11-01 16:08:12 Office Visit Ronit Santiago [facility] [employer] 1..840.114 [id number] [facility] 2021-11-01 14:30:00 2021-11-01 16:08:12 Outpatient R RONIT SANTIAGO [facility] [id number] [facility] 2021-11-01 09:30:00 2021-11-01 09:30:00 Outpatient R ISABELL ANTONIO [facility] [id number] [facility] 2021-10-26 19:30:00 2021-10-26 23:49:00 Emergency X DAYANNA HANNON [facility] ERT [id number] [facility] 2021-10-26 19:30:00 2021-10-26 23:49:00 Emergency Dayanna Hannon [facility] 1.20.114 350.1.13.10 4.2.7.2.686 [id number] 084 [id number] [facility] 2021-05-16 00:00:00 2021-05-16 00:00:00 Patient Secure Msg Doctor Unassigned, [place] [facility] 1..114 350.1.13.10 4.2.7.2.686 [id number] 019 [id number] [facility] 2021-05-15 02:02:00 2021-05-15 13:30:00 Emergency X DELL NOBLE [facility] ERT [id number] [facility] 2021-05-15 02:02:00 2021-05-15 13:30:00 Emergency Dell Noble [facility] 1..114 350.1.13.10 4.2.7.2.686 [id number] 084 [id number] [facility] 2021-05-12 01:32:00 2021-05-12 03:32:00 Emergency X DELL NOBLE [facility] ERT [id number] [facility] 2021-05-12 01:32:00 2021-05-12 03:32:00 Emergency Dell Noble [facility] 1..114 350.1.13.10 4.2.7.2.686 [id number] 084 [id number] [facility] 2021-05-12 00:00:00 2021-05-12 00:00:00 Orders Only Doctor Unassigned, [place] [facility] 1.2.114 350.1.13.10 4.2.7.2.686 [id number] [id number] [facility] 2021-04-26 16:40:00 2021-04-26 18:47:00 Emergency X DANIEL JACOBSON [facility] ERT [id number] [facility] 2021-04-26 16:40:00 2021-04-26 18:47:00 Emergency Daniel Jacobson [facility] 1.2.840.114 350.1.13.10 4.2.7.2.686 [id number] 084 [id number] [facility] 2021-03-10 12:55:00 2021-03-12 18:40:00 Emergency Jennifer Manzano [facility] ([facility]) 1.2.840.114 350.1.13.10 4.2.7.2.686 [id number] [facility] 2020-12-20 00:00:00 2020-12-20 00:00:00 Outpatient [facility] [id number] [facility] 2020-12-12 21:14:00 2020-12-13 01:55:00 Emergency Maggie Barrera [facility] 1.2.840.114 350.1.13.10 4.2.7.2.686 [id number] 084 [id number] [facility] 2020-10-15 11:58:00 2020-10-15 15:51:00 Emergency X RICHARDSON LEON [facility] ERT [id number] [facility] 2020-10-15 11:58:00 2020-10-15 15:51:00 Emergency Richardson Leon [facility] 1.2.840.114 350.1.13.10 4.2.7.2.686 [id number] 014 [id number] [facility] 2020-09-01 13:00:00 2020-09-01 13:00:00 Outpatient R [facility] [id number] [facility] 2020-08-27 09:15:00 2020-08-27 13:06:00 Emergency Dell Noble [facility] 1.2.840.114 350.1.13.10 4.2.7.2.686 [id number] 084 [id number] [facility] 2020-08-27 00:00:00 2020-08-27 00:00:00 Orders Only Doctor Unassigned, [place] [facility] 1.2.840.114 350.1.13.10 4.2.7.2.686 [id number] [id number] [facility] 2020-07-30 00:00:00 2020-07-30 00:00:00 Telephone Glenis Becerra [facility] 1.2.840.114 350.1.13.10 4.2.7.2.686 [id number] 019 [id number] [facility] 2020-07-28 20:54:00 2020-07-29 00:37:00 Emergency Maggie Barrera Doreen [facility] 1.2.840.114 350.1.13.10 4.2.7.2.686 [id number] 084 [id number] [facility] 2020-07-29 00:00:00 2020-07-29 00:00:00 Patient Secure Msg Doctor Unassigned, [place] [facility] 1.2.840.114 350.1.13.10 4.2.7.2.686 [id number] 019 [id number] [facility] 2020-06-24 14:22:00 2020-06-24 16:17:00 Emergency Mehreen Sethi [facility] 1.2.840.114 350.1.13.10 4.2.7.2.686 [id number] 084 [id number] [facility] 2020-06-24 00:00:00 2020-06-24 00:00:00 Orders Only Doctor Unassigned, [place] [facility] 1.2.840.114 350.1.13.10 4.2.7.2.686 [id number] [id number] [facility] 2020-06-23 00:00:00 2020-06-23 00:00:00 (TEL) STLMLC STLMLC [id number] [facility] 2020-05-25 00:00:00 2020-05-25 00:00:00 Outpatient CLIVE DOTY [facility] [id number] [facility] 2020-05-06 00:00:00 2020-05-06 00:00:00 OFFICE VISIT ESTAB PT LEVEL 2 STLMLC STLMLC [id number] [facility] 2020-05-05 00:00:00 2020-05-05 00:00:00 (TEL) STLMLC STLMLC [id number] [facility] 2020-05-03 12:03:00 2020-05-03 16:07:00 Emergency Atif Shearer [facility] ([facility]) 1.2.840.114 350.1.13.10 4.2.7.2.686 [id number] [id number] [facility] 2020-04-05 00:00:00 2020-04-05 00:00:00 Telephone Clive Tran [facility] GAMBLING SUPERVISOR [facility]ILD [facility] 1.2.840.114 350.1.13.10 4.2.7.2.686 [id number] [facility] 2020-04-01 14:01:09 2020-04-01 15:15:07 Office Visit Clive Tran [facility] [employer]AM[employer] SUPERVISOR [facility] & CHILD [facility] 1.2.840.114 350.1.13.10 4.2.7.2.686 [id number] [facility] 2020-04-01 13:30:00 2020-04-01 13:30:00 Outpatient CLIVE DOTY [facility] [id number] [facility] 2020-04-01 00:00:00 2020-04-01 00:00:00 Orders Only Doctor Unassigned, [place] [facility] 1.2.840.114 350.1.13.10 4.2.7.2.686 [id number] 009 [id number] [facility] 2020-02-20 00:00:00 2020-02-20 00:00:00 Letter (Out) Delia Perkins [facility] 1.2.840.114 350.1.13.10 4.2.7.2.686 [id number] 019 [id number] [facility] 2020-02-18 20:02:00 2020-02-18 21:40:00 Emergency Maggie Barrera [facility] 1.2.840.114 350.1.13.10 4.2.7.2.686 [id number] 084 [id number] [facility] 2020-02-18 00:00:00 2020-02-18 00:00:00 Orders Only Doctor Unassigned, [place] [facility] 1.2.840.114 350.1.13.10 4.2.7.2.686 [id number] 009 [id number] [facility] 2019-11-18 15:13:00 2019-11-18 15:13:00 [facility] [id number] [facility] 2019-11-18 00:00:00 2019-11-18 00:00:00 Telephone Tessa Matos [facility] 1.2.840.114 350.1.13.10 4.2.7.2.686 [id number] 019 [id number] [facility] 2019-11-16 19:58:07 2019-11-16 22:05:00 Emergency Richardson Leon [facility] 1.2.840.114 350.1.13.10 4.2.7.2.686 [id number] 084 [id number] [facility] 2019-11-14 14:20:00 2019-11-14 14:20:00 [facility] [id number] [facility] 2019-11-14 11:44:00 2019-11-14 11:44:00 [facility] [id number] [facility] 2019-07-29 11:15:00 2019-07-29 11:15:00 [facility] [id number] [facility] 2019-07-29 08:43:00 2019-07-29 08:43:00 [facility] [place] [facility] [id number] [facility] 2019-07-27 22:56:42 2019-07-28 01:19:00 Emergency Isaac Reynolds [facility] 1.2.840.114 350.1.13.10 4.2.7.2.686 [id number] 084 [id number] [facility] 2019-03-20 15:45:00 2019-03-20 15:45:00 [facility] [place] [facility] [id number] [facility] 2018-09-26 00:00:00 2018-09-26 00:00:00 OFFICE VISIT ESTAB PT LEVEL 3 [facility] [place] [facility] [id number] [facility] 2018-09-03 15:39:00 2018-09-03 15:39:00 [facility] [id number] [facility] 2018-09-03 12:09:00 2018-09-03 12:09:00 [facility] [id number] [facility] 2018-09-03 09:49:00 2018-09-03 09:49:00 [facility] [id number] [facility] 2018 16:01:00 2018 16:01:00 [facility] [id number] [facility] 2018-08-21 15:30:00 2018-08-21 15:30:00 [facility] [id number] [facility] 2018-08-21 11:30:00 2018-08-21 11:30:00 [facility] [id number] [facility] 2018-07-24 08:46:00 2018-07-24 08:46:00 [facility] [id number] [facility] 2018-07-17 13:15:00 2018-07-17 13:15:00 [facility] [id number] [facility] 2018-07-15 11:15:00 2018-07-15 11:15:00 [facility] [id number] [facility] 2018-06-19 08:15:00 2018-06-19 08:15:00 [facility] [id number] [facility] 2018-04-30 13:30:00 2018-04-30 13:30:00 [facility] [id number] [facility] Results Test Description Test Time Test Comments Results Result Comments Source CYTOLOGY, URINE W/REFL FISH 00:00:00 CLINICAL INFORMATIONPATHOLOGISTREPORT NOTESSCREENER URINE, SPECIMEN A 00:00:00 A COMMENTA DIAGNOSISA GROSS DESCRIPTIONA SOURCE CT Abdomen pelvis wo [id number] 05:25:19Exam: CT Abdomen and Pelvis without contrast, [...] the anterior abdominal wall.Bones: No acute osseous abnormality.[facility] 1 [id number] 02:47:57 EXAM: XR CHEST 1 VW COMPARISON: Chest CT dated 03/10/2021. HISTORY: back pain ? FINDINGS: No focal consolidation is identified. Diffuse interstitial prominencenoted. No pleural effusion or pneumothorax is seen. The cardiomediastinalsilhouette is unchanged.No acute osseous abnormalities. [facility] W Specific [id number] 18:37:00* Test Item Value Reference Range Interpretation [...] POCT U APPEAR (test code = 3267) [facility] Urinalysis W Specific [id number] 18:37:00* Test Item Value Reference Range Interpretation [...] POCT U APPEAR (test code = 3267) [facility] ABDOMEN PELVIS W [id number] 23:19:49CT ABDOMEN PELVIS W CONTRAST Indication: LLQ [...] theleft iliac bone most likely a bone [facility] METABOLIC PANEL (86227)2023-08-05 21:50:58* Test Item Value Reference Range Interpretation Comme nts NA (test code = 2493886956) 138 mmol/L 135-145 K (test code = 6238516982) 3.7 mmol/L 3.5-5.0 CL (test code = 8683170030) 107 mmol/L 98-108 CO2 TOTAL (test code = 9958514501) 25 mmol/L 23-31 AGAP (test code = 2705130598) 6 2-16 BUN (test code = 8774272193) 14 mg/dL 7-23 GLUCOSE (test code = 6300765357) 162 mg/dL 70-110 H CREATININE (test code = 2160-0) 0.49 mg/dL 0.50-1.04 L TOTAL BILI (test code = 6832285329) 0.4 mg/dL 0.1-1.1 CALCIUM (test code = 5235423558) 8.8 mg/dL 8.6-10.6 T PROTEIN (test code = 3113159523) 7.0 g/dL 6.3-8.2 ALBUMIN (test code = 6057273041) 4.0 g/dL 3.5-5.0 ALK PHOS (test code = 9775948587) 80 U/L 34-122 ALTv (test code = 1742-6) 14 U/L 5-35 AST(SGOT) (test code = 8549650708) 24 U/L 13-40 eGFR (test code = 08284-9) 114.3 mL/min/1.73m2 CKD-EPI eGFR (2020). Assuming creatinine has been stable day-to-day for at least three months, the eGFR indicates Category G1 (>= 90 mL/min/1.73 m2) Lab Interpretation (test code = 12256-3) Abnormal [facility] WITH [id number] 21:44:15* Test Item Value Reference Range Interpretation [...] 33.6 g/dL 31.6-35.1 RDW-SD (test code = 70167-0) 44.0 fL 39.0-49.9 RDW-CV (test code = 788-0) 13.0 % 12.0-15.5 PLT (test code = 777-3) 337 166-358 MPV (test code = 61171-7) 9.3 fL 9.5-12.9 L NRBC/100 WBC (test code = 5182341286) 0.0 0.0-10.0 NRBC x10^3 (test code = 0202870224) See_Comment [Automated messa ge] The system which generated this result transmitted reference range: 10*3/?L. The reference range was not used to interpret this result as normal/abnormal. GRAN MAT (NEUT) % (test code = 770-8) 53.6 % IMM GRAN % (test code = 8762183962) 0.40 % LYMPH % (test code = 736-9) 39.1 % MONO % (test code = 5905-5) 4.2 % EOS % (test code = 713-8) 2.5 % BASO % (test code = 706-2) 0.2 % GRAN MAT x10^3(ANC) (test code = 3310907100) 5.34 10*3/uL 1.88-7.09 IMM GRAN x10^3 (test code = 2280615971) 0.04 10*3/uL 0.00-0.06 LYMPH x10^3 (test code = 731-0) 3.89 10*3/uL 1.32-3.29 H MONO x10^3 (test code = 742-7) 0.42 10*3/uL 0.33-0.92 EOS x10^3 (test code = 711-2) 0.25 10*3/uL 0.03-0.39 BASO x10^3 (test code = 704-7) 0.01-0.07 Lab Interpretation (test code = 09795-9) [facility]normal [facility] W [id number] 04:47:59Provider: JOSE GUADALUPE CAMPBELL EXAM: CT ABDOMEN [...] wall: Within normal limits.Bones: No acute bony abnormality.[facility] WITH [id number] 03:09:59* Test Item Value Reference Range Interpretation Comme nts WBC (test code = 6690-2) 10.42 See_Comment [Automated Modular Patterns] The system which generated this result transmitted reference range: 4.30 - 11.10 10*3/?L. The reference range was not used to interpret this result as normal/abnormal. RBC (test code = 789-8) 4.11 See_Comment [Automated Modular Patterns] The system which generated this result transmitted [...] 34.6 g/dL 31.6-35.1 RDW-SD (test code = 33523-1) 42.8 fL 39.0-49.9 RDW-CV (test code = 788-0) 12.9 % 12.0-15.5 PLT (test code = 777-3) 345 See_Comment [Automated messa ge] The system which generated this result transmitted reference range: 166 - 358 10*3/?L. The reference range was not used to interpret this result as normal/abnormal. MPV (test code = 29707-3) 8.9 fL 9.5-12.9 L NRBC/100 WBC (test code = 6603725250) 0.0 See_Comment [Automated Moblyng ssage] The system which generated this result transmitted reference range: 0.0 - 10.0 /100 WBCs. The reference range was not used to interpret this result as normal/abnormal. NRBC x10^3 (test code = 6986304041) See_Comment [Automated Citycelebritya ge] The system which generated this result transmitted reference range: 10*3/?L. The reference range was not used to interpret this result as normal/abnormal. GRAN MAT (NEUT) % (test code = 770-8) 45.5 % IMM GRAN % (test code = 8151360921) 0.20 % LYMPH % (test code = 736-9) 44.5 % MONO % (test code = 5905-5) 6.8 % EOS % (test code = 713-8) 2.9 % BASO % (test code = 706-2) 0.1 % GRAN MAT x10^3(ANC) (test code = 9309141262) 4.74 10*3/uL 1.88-7.09 IMM GRAN x10^3 (test code = 4955380025) 0.00-0.06 LYMPH x10^3 (test code = 731-0) 4.64 10*3/uL 1.32-3.29 H MONO x10^3 (test code = 742-7) 0.71 10*3/uL 0.33-0.92 EOS x10^3 (test code = 711-2) 0.30 10*3/uL 0.03-0.39 BASO x10^3 (test code = 704-7) 0.01-0.07 HYPERSEG NEUTS (test code = 765-8) Present See_Comment A [Automated Citycelebritya ge] The system which generated this result transmitted reference range: (none). The reference range was not used to interpret this result as normal/abnormal. REACT LYMPHS (test code = 5403025750) Rare Lab Interpretation (test code = 89709-5) Abnormal [facility] METABOLIC PANEL (NA, K, CL, CO2, GLUCOSE, BUN, CREATININE, CA)2023-05-12 02:35:14* Test Item Value Reference Range Interpretation Comme nts NA (test code = 4211865097) 136 mmol/L 135-145 K (test code = 1005758636) 3.6 mmol/L 3.5-5.0 CL (test code = 0565133038) 103 mmol/L 98-108 CO2 TOTAL (test code = 1100661690) 26 mmol/L 23-31 AGAP (test code = 1652947551) 7 2-16 BUN (test code = 4765951798) 17 mg/dL 7-23 GLUCOSE (test code = 8100440065) 113 mg/dL 70-110 H CREATININE (test code = 2760478319) 0.65 mg/dL 0.50-1.04 CALCIUM (test code = 6775919899) 9.2 mg/dL 8.6-10.6 eGFR (test code = 50817-6) 106.7 mL/min/1.73m2 CKD-EPI eGFR (2020). Assuming creatinine has been stable day-to-day for at least three months, the eGFR indicates Category G1 (>= 90 mL/min/1.73 m2) Lab Interpretation (test code = 15734-8) [facility] (55635) (ALB,T.PRO,BILI T,BU/BC,ALT,AST,ALK PHOS)2023-05-12 02:35:14* Test Item Value Reference Range Interpretation Comme nts TOTAL BILI (test code = 4087855864) 0.4 mg/dL 0.1-1.1 BILI UNCON (test code = 9028140793) 0.2 mg/dL 0.1-1.1 BILI CONJ (test code = 4604556471) 0.0 mg/dL 0.0-0.3 T PROTEIN (test code = 7796609737) 7.5 g/dL 6.3-8.2 ALBUMIN (test code = 0351524066) 4.5 g/dL 3.5-5.0 ALK PHOS (test code = 6636378869) 83 U/L 34-122 ALTv (test code = 1742-6) 17 U/L 5-35 AST(SGOT) (test code = 5067785725) 25 U/L 13-40 Lab Interpretation (test cod e = 82948-4) Normal [facility] 02:35:14* Test Item Value Reference Range Interpretation Comme nts LIPASE (test code = 3804933812) 151 U/L 0-220 Lab Interpretation (test cod e = 24649-0) Normal [facility] METABOLIC PANEL (33124)2023-02-03 18:35:59* Test Item Value Reference Range Interpretation Comme nts NA (test code = 3483093152) 140 mmol/L 135-145 K (test code = 7118894271) 4.0 mmol/L 3.5-5.0 CL (test code = 1394874931) 108 mmol/L 98-108 CO2 TOTAL (test code = 5109351079) 24 mmol/L 23-31 AGAP (test code = 0681663063) 8 2-16 BUN (test code = 0676680684) 14 mg/dL 7-23 GLUCOSE (test code = 8966899714) 98 mg/dL 70-110 CREATININE (test code = 7726410922) 0.70 mg/dL 0.50-1.04 TOTAL BILI (test code = 5833944333) 0.2 mg/dL 0.1-1.1 CALCIUM (test code = 2069765816) 9.1 mg/dL 8.6-10.6 T PROTEIN (test code = 7945862502) 7.0 g/dL 6.3-8.2 ALBUMIN (test code = 5004790703) 4.3 g/dL 3.5-5.0 ALK PHOS (test code = 9358534763) 80 U/L 34-122 ALTv (test code = 1742-6) 14 U/L 5-35 AST(SGOT) (test code = 4296827026) 22 U/L 13-40 eGFR (test code = 7015811994) 88.2 mL/min/1.73m2 LAVONNE (test code = LAVONNE) [...] or urine or abnormalities in imaging tests). [facility] 18:35:39* Test Item Value Reference Range Interpretation Comme nts LIPASE (test code = 2394928129) 87 U/L 0-220 Lab Interpretation (test cod e = 52042-5) Normal [facility] WITH [id number] 18:24:40* Test Item Value Reference Range Interpretation [...] 34.5 g/dL 31.6-35.1 RDW-SD (test code = 33496-8) 42.5 fL 39.0-49.9 RDW-CV (test code = 788-0) 12.8 % 12.0-15.5 PLT (test code = 777-3) 345 See_Comment [Automated messa ge] The system which generated this result transmitted reference range: 166 - 358 10*3/?L. The reference range was not used to interpret this result as normal/abnormal. MPV (test code = 22435-9) 9.1 fL 9.5-12.9 L NRBC/100 WBC (test code = 6454225572) 0.0 See_Comment [Automated Moblyng ssage] The system which generated this result transmitted reference range: 0.0 - 10.0 /100 WBCs. The reference range was not used to interpret this result as normal/abnormal. NRBC x10^3 (test code = 6562203274) See_Comment [Automated messa ge] The system which generated this result transmitted reference range: 10*3/?L. The reference range was not used to interpret this result as normal/abnormal. GRAN MAT (NEUT) % (test code = 770-8) 51.4 % IMM GRAN % (test code = 8035445713) 0.20 % LYMPH % (test code = 736-9) 40.8 % MONO % (test code = 5905-5) 5.3 % EOS % (test code = 713-8) 2.2 % BASO % (test code = 706-2) 0.1 % GRAN MAT x10^3(ANC) (test code = 9902635733) 4.75 10*3/uL 1.88-7.09 IMM GRAN x10^3 (test code = 8850628904) 0.00-0.06 LYMPH x10^3 (test code = 731-0) 3.77 10*3/uL 1.32-3.29 H MONO x10^3 (test code = 742-7) 0.49 10*3/uL 0.33-0.92 EOS x10^3 (test code = 711-2) 0.20 10*3/uL 0.03-0.39 BASO x10^3 (test code = 704-7) 0.01-0.07 Lab Interpretation (test code = 03467-7) Abnormal [facility] WITH [id number] 07:21:41* Test Item Value Reference Range Interpretation [...] g/dL 31.6-35.1 H RDW-SD (test code = 27169-3) 41.1 fL 39.0-49.9 RDW-CV (test code = 788-0) 12.6 % 12.0-15.5 PLT (test code = 777-3) 315 See_Comment [Automated [employer]] The system which generated this result transmitted reference range: 166 - 358 10*3/?L. The reference range was not used to interpret this result as normal/abnormal. MPV (test code = 54165-7) 8.7 fL 9.5-12.9 L NRBC/100 WBC (test code = 4780738989) 0.0 See_Comment [Automated Moblyng ssage] The system which generated this result transmitted reference range: 0.0 - 10.0 /100 WBCs. The reference range was not used to interpret this result as normal/abnormal. NRBC x10^3 (test code = 8730694055) See_Comment [Automated [employer]] The system which generated this result transmitted reference range: 10*3/?L. The reference range was not used to interpret this result as normal/abnormal. SEG % (test code = 80374-8) 45 % 33-76 LYMPH % (test code = 99305-5) 48 % 14-54 EOS % (test code = 14328-8) 7 % 0-3 H ANC (test code = 753-4) 4.43 10*3/uL 1.88-7.09 Lab Interpretation (test code = 31750-9) Abnormal [facility]. METABOLIC PANEL (26189)2022-07-20 07:05:10* Test Item Value Reference Range Interpretation Comme nts NA (test code = 3831275270) 139 mmol/L 135-145 K (test code = 8293070054) 4.0 mmol/L 3.5-5.0 Slight hemolysis CL (test code = 6765521566) 105 mmol/L 98-108 CO2 TOTAL (test code = 1104731781) 25 mmol/L 23-31 AGAP (test code = 3093472104) 9 2-16 BUN (test code = 6627877103) 19 mg/dL 7-23 Slight hemolysis GLUCOSE (test code = 4330244415) 96 mg/dL 70-110 CREATININE (test code = 3822171070) 0.59 mg/dL 0.50-1.04 TOTAL BILI (test code = 7542140744) 0.5 mg/dL 0.1-1.1 CALCIUM (test code = 2233304715) 9.2 mg/dL 8.6-10.6 T PROTEIN (test code = 3636944915) 6.9 g/dL 6.3-8.2 ALBUMIN (test code = 5378796367) 4.4 g/dL 3.5-5.0 ALK PHOS (test code = 7006792390) 53 U/L 34-122 Slight hemoly sis ALTv (test code = 1742-6) 15 U/L 5-35 AST(SGOT) (test code = 1020222233) 23 U/L 13-40 Slight hemoly sis eGFR (test code = 6926389962) 107.9 mL/min/1.73m2 LAVONNE (test code = LAVONNE) [...] or urine or abnormalities in imaging tests). [facility] (ALB,T.PRO,BILI T,BU/BC,ALT,AST,ALK PHOS)2022-03-13 22:31:03* Test Item Value Reference Range Interpretation Comme nts TOTAL BILI (test code = 1720240459) 0.4 mg/dL 0.1-1.1 BILI UNCON (test code = 8601866932) 0.1 mg/dL 0.1-1.1 BILI CONJ (test code = 1764968460) 0.0 mg/dL 0-0.3 T PROTEIN (test code = 5249459923) 7.0 g/dL 6.3-8.2 ALBUMIN (test code = 0689749895) 4.5 g/dL 3.5-5 ALK PHOS (test code = 1871229755) 60 U/L 34-122 ALTv (test code = 1742-6) 16 U/L 5-35 AST(SGOT) (test code = 3209432488) 25 U/L 13-40 Lab Interpretation (test cod e = 38194-1) [facility] (NA, K, CL, CO2, GLUCOSE, BUN, CREATININE, CA)2022-03-13 22:30:43* Test Item Value Reference Range Interpretation Comme nts NA (test code = 2244494824) 139 mmol/L 135-145 K (test code = 9453204010) 4.0 mmol/L 3.5-5 CL (test code = 0080131276) 104 mmol/L 98-108 CO2 TOTAL (test code = 9045955453) 26 mmol/L 23-31 AGAP (test code = 8952558598) 2-16 BUN (test code = 0976577474) 14 mg/dL 7-23 GLUCOSE (test code = 2865819555) 93 mg/dL 70-110 CREATININE (test code = 7546826398) 0.88 mg/dL 0.5-1.04 CALCIUM (test code = 1315303205) 9.0 mg/dL 8.6-10.6 eGFR (test code = 6687976618) mL/min/1.73m2 LAVONNE (test code = LAVONNE) Association [...] or urine or abnormalities in imaging tests). [facility] 22:30:43* Test Item Value Reference Range Interpretation Comme nts LIPASE (test code = 9126750190) 200 U/L 0-220 Lab Interpretation (test cod e = 72857-0) [facility] [id number] 21:59:40* Test Item Value Reference Range Interpretation Comme nts WBC (test code = 6690-2) See_Comment H [Automated Modular Patterns] The system which generated this result transmitted [...] 35.0 g/dL 31.6-35.1 RDW-SD (test code = 02644-1) 42.3 fL 39-49.9 RDW-CV (test code = 788-0) 12.8 % 12-15.5 PLT (test code = 777-3) See_Comment [Automated messa ge] The system which generated this result transmitted reference range: 166 - 358 10*3/?L. The reference range was not used to interpret this result as normal/abnormal. MPV (test code = 10557-4) 8.9 fL 9.5-12.9 L NRBC/100 WBC (test code = 3179641563) See_Comment [Automated Moblyng ssage] The system which generated this result transmitted reference range: 0.0 - 10.0 /100 WBCs. The reference range was not used to interpret this result as normal/abnormal. NRBC x10^3 (test code = 5643052285) See_Comment [Automated messa ge] The system which generated this result transmitted reference range: 10*3/?L. The reference range was not used to interpret this result as normal/abnormal. GRAN MAT (NEUT) % (test code = 770-8) 60.3 % IMM GRAN % (test code = 9043466546) 0.30 % LYMPH % (test code = 736-9) 29.6 % MONO % (test code = 5905-5) 6.6 % EOS % (test code = 713-8) 3.0 % BASO % (test code = 706-2) 0.2 % GRAN MAT x10^3(ANC) (test code = 3020164698) 7.16 10*3/uL 1.88-7.09 H IMM GRAN x10^3 (test code = 8020521094) 0.04 10*3/uL 0-0.06 LYMPH x10^3 (test code = 731-0) 3.51 10*3/uL 1.32-3.29 H MONO x10^3 (test code = 742-7) 0.78 10*3/uL 0.33-0.92 EOS x10^3 (test code = 711-2) 0.35 10*3/uL 0.03-0.39 BASO x10^3 (test code = 704-7) 0.01-0.07 Lab Interpretation (test code = 39645-8) [facility] 01:55:34* Test Item Value Reference Range Interpretation Comme nts LIPASE (test code = 6308359957) 618 U/L 0-220 H Lab Interpretation (test cod e = 15688-5) [facility]OLIC PAN[facility] (43849)2022-01-22 01:55:34* Test Item Value Reference Range Interpretation Comme nts NA (test code = 7173298949) 140 mmol/L 135-145 K (test code = 2480559383) 4.4 mmol/L 3.5-5 CL (test code = 8460533404) 109 mmol/L 98-108 H CO2 TOTAL (test code = 7881981859) 25 mmol/L 23-31 AGAP (test code = 1562895447) 2-16 BUN (test code = 3250265119) 20 mg/dL 7-23 GLUCOSE (test code = 2035938095) 98 mg/dL 70-110 CREATININE (test code = 7013699575) 0.73 mg/dL 0.5-1.04 TOTAL BILI (test code = 4408610228) 0.2 mg/dL 0.1-1.1 CALCIUM (test code = 2695828905) 9.1 mg/dL 8.6-10.6 T PROTEIN (test code = 5047360325) 6.9 g/dL 6.3-8.2 ALBUMIN (test code = 4735726219) 4.6 g/dL 3.5-5 ALK PHOS (test code = 3601602923) 71 U/L 34-122 ALTv (test code = 1742-6) 16 U/L 5-35 AST(SGOT) (test code = 7207667077) 23 U/L 13-40 eGFR (test code = 9418232967) mL/min/1.73m2 LAVONNE (test code = LAVONNE) Association [...] imaging tests). Lab Interpretation (test code = 34181-6) Abnormal [facility] WITH [id number] 01:48:36* Test Item Value Reference Range Interpretation Comme nts WBC (test code = 6690-2) See_Comment H [Automated Modular Patterns] The system which generated this result transmitted [...] g/dL 31.6-35.1 H RDW-SD (test code = 47370-9) 43.0 fL 39-49.9 RDW-CV (test code = 788-0) 13.1 % 12-15.5 PLT (test code = 777-3) See_Comment [Automated messa ge] The system which generated this result transmitted reference range: 166 - 358 10*3/?L. The reference range was not used to interpret this result as normal/abnormal. MPV (test code = 16672-6) 10.1 fL 9.5-12.9 NRBC/100 WBC (test code = 0993644435) See_Comment [Automated Moblyng ssage] The system which generated this result transmitted reference range: 0.0 - 10.0 /100 WBCs. The reference range was not used to interpret this result as normal/abnormal. NRBC x10^3 (test code = 5916230549) See_Comment [Automated messa ge] The system which generated this result transmitted reference range: 10*3/?L. The reference range was not used to interpret this result as normal/abnormal. GRAN MAT (NEUT) % (test code = 770-8) 52.3 % IMM GRAN % (test code = 7599971262) 0.30 % LYMPH % (test code = 736-9) 39.4 % MONO % (test code = 5905-5) 5.5 % EOS % (test code = 713-8) 2.3 % BASO % (test code = 706-2) 0.2 % GRAN MAT x10^3(ANC) (test code = 9893674309) 6.05 10*3/uL 1.88-7.09 IMM GRAN x10^3 (test code = 6642459497) 0.03 10*3/uL 0-0.06 LYMPH x10^3 (test code = 731-0) 4.55 10*3/uL 1.32-3.29 H MONO x10^3 (test code = 742-7) 0.63 10*3/uL 0.33-0.92 EOS x10^3 (test code = 711-2) 0.27 10*3/uL 0.03-0.39 BASO x10^3 (test code = 704-7) 0.01-0.07 Lab Interpretation (test code = 15741-6) Abnormal [facility] Notes Date/Time Note Provider Source 2024-05-20 00:34:16 Pt given printed and verbal discharge instructions regarding back pain, encouraged hydration, Prescriptions provided Discussed [place] side affects and to avoid driving/operating machinery/or [...] no apparent distress, with E Hook RN [facility] - [facility] 2024-05-19 19:29:54 Pt arrives to ED ambulatory c/o bilateral flank pain that has persisted ever since she was discharged from [facility] last week due to dehydration and kidney problems. States that when she was discharged they had told her she had fluid in her lungs and now her upper back is hurting as well. Rates pain 10/10 Pt currently taking ibuprofen 800mg, tizanidine 2mg, cefpodoxime pro 100mg, and promethazine 25mg. TIVE NOTCHER Prisca Kirkland RN [facility] 2024-05-19 19:25:00 [facility] Emergency Department Note Patient Name: Stephania Lobo Date of : 1970 53 year old female Treatment Room: [facility] Primary Care Physician: Papito See Patient Escorted by: Family [5] Mode of Arrival: Personal means [1] EMS Treatment Prior to ED Arrival: AUTOMOTIVE SERVICE ADVISOR treatment: None Travel and Exposure Screening: Symptoms [...] after being discharged 1 week ago from [facility] for nephrotoxicity after cipro for ear [...] Electronically signed by: Kim Callejas DO 05/19/24 0279 [facility] 2024-05-19 19:25:00 Patient seen, examined and d/w Dr. Juarez, shift change, pending CTAP--negative acute findings. Exam c/w musculoskeletal lower back pain/strain. Agree with home, hydration, symptomatic care, ER warnings, close f/u PCP. Luis Pearson MD 05/20/24 0004 [facility]2024-07-22 18:41:08 Pt given printed and verbal discharge [...] in no apparent distress. Dee Dee [facility]avala [facility] 17:58:49 Patient states "from September until now I have had an ear infection in both ears." Patient states that she has been treated multiple times for ear infections and was referred to a specialist. Patient unable to get an appointment until December. Currently has bilateral ear pain. Blayne Womack [facility] 00:00:00 [facility]2024-05-30 00:00:00 [facility]2024-05-10 22:57:26 Pt given printed and verbal [...] with steady gait, in no apparent distress. [facility] 22:42:38 Bilateral ear pain, left worse than right. Throat pain. Stated 3 days ago. Gilda Covington [facility]7586[facility]29[facility]81 22:26:00 [facility] Emergency Department Note Patient Name: Stephania Lobo Date of : 1970 53 year old female Treatment Room: Room/bed info not found Primary Care Physician: Papito See Patient Escorted by: Self [9] Mode of Arrival: Personal means [1] EMS Treatment Prior to ED Arrival: AUTOMOTIVE SERVICE ADVISOR treatment: None Travel and Exposure Screening: Symptoms [...] 07/06/2015 Surgeon: Hoang Leon III, MD; Location: [facility] TOTAL ABDOMINAL HYSTERECTOMY N/A 07/06/2015 Surgeon: Hoang Leon III, MD; Location: [facility] TUBAL LIGATION tubal in 1994 Review [...] Electronically signed by: Stephanie Tran DO 09/28/230 [place] [address]-03-17 20:04:20 Pt discharged with diagnosis of dysuria, flank pain, LLQ pain, acute otitis externa of R ear, and constipation. Printed and verbal instructions reviewed with and given to pt. Prescriptions given x 3. Pt verbalized understanding of teaching, medications, and recommended follow-up. Denies questions or concerns at this time. Pt ambulatory at discharge. Appears in no apparent distress. No ataxia noted. Desiree Ruiz [place] [address]-03-17 17:45:40 BP dropped to 87/62. Provider Courtney Lechuga notified-500 cc NS IV bolus initiated as per verbal order. Patient remains warm, dry, pink, asymptomatic. [facility] Viet Smith [place] 230114-03-17 16:48:24 Medicated as ordered with fentanyl 50 mcg IV for persitent left flank pain 01/28. [place] [address]-03-17 15:07:58 Stephania Lobo is a 52 year old female c/o dysuria x3 weeks, getting worse, also c/o fluid draining from right ear x 3 days, [place] [address]-01-04 20:49:49 Pt given printed and verbal discharge [...] with steady gait, in no apparent distress. [place] 647034-01-04 19:08:17 Pt arrives ambulatory to ED reporting flu like symptoms x5 days and she says it is not improving so she came in to be seen. [facility] Sherry Tran [place] [address]-12-22 22:33:28 Pt bck from radoliogy. Spouse at bedside E Wood [place] [address]-12-22 20:58:42 Pt out of bed ambulates to bathroom to void [place] [address]-12-22 18:58:53 Pt given urine cup and placed in the lobby, pt advice to notify nurse with any other concerns or if symptoms worsen. [place] [address]-12-22 18:55:25 C/O lower back pain to the lower abd with painful urination and cloudy urine for 3 weeks. TIVE NOTCHER Debbie Mas [facility] [id number] 18:47:00 [facility] Emergency Department Note Patient Name: Stephania Lobo Date of : 1970 52 year old female Treatment Room: [place] [address] Primary Care Physician: Papito See Patient Escorted by: Self [9] Mode of Arrival: Personal means [1] EMS Treatment Prior to ED Arrival: AUTOMOTIVE SERVICE ADVISOR treatment: Analgesic AUTOMOTIVE SERVICE ADVISOR treatment comments: tylenol @ 1500 Travel and [...] just completed a course of Augmentin from [place] physician, her symptoms are now worse and [...] left sided lump with pain-started 12/2012 Depression 2005 used to take medication, does not at [...] 07/06/2015 Surgeon: Hoang Leon III, MD; Location: [facility] TOTAL ABDOMINAL HYSTERECTOMY N/A 07/06/2015 Surgeon: Hoang Leon III, MD; Location: [facility] TUBAL LIGATION tubal in 1994 Review [...] GLUCOSE, BUN, CREATININE, CA) HEPATIC FUNCTION PANEL (99906) (ALB,T.PRO,BILI T,BU/BC,ALT,AST,ALK PHOS) LIPASE AC PANEL 21 [...] just completed a course of Augmentin from [place] physician, her symptoms are now worse and [...] 1 Ref Range: HPF HEPATIC FUNCTION PANEL (19265) (ALB,T.PRO,BILI T,BU/BC,ALT,AST,ALK PHOS) - Normal TOTAL BILI [...] signed by: Jose Guadalupe Campbell MD 05/11/23 [address] [facility] - [id number] 14:47:56 Pt given printed and verbal discharge [...] steady gait, in no apparent distress, T [place] 318183-09-16 12:48:49 Pt present to ED with c/o anahy flank pain radiating into lower abd, painful urination, and nausea since Sunday. Pt also reports a headache. [place] 318183-09-16 12:46:00 [facility] Emergency Department Note Patient Name: Stephania Lobo Date of : 1970 52 year old female [facility] Primary Care Physician: Papito See Patient Escorted by: Family [5] Mode of Arrival: Personal means [1] EMS Treatment Prior to ED Arrival: AUTOMOTIVE SERVICE ADVISOR treatment: None Exam Limited by: none Travel [...] 07/06/2015 Surgeon: Hoang Leon III, MD; Location: [facility] TOTAL ABDOMINAL HYSTERECTOMY N/A 07/06/2015 Surgeon: Hoang Leon III, MD; Location: [facility] Location TUBAL LIGATION tubal in 1994 Physical Exam: ED Triage Vitals [02/03/23 1251] Weight 54.4 kg (120 lb) Actual or estimated Height 1.524 m (5') BP (!) 116/92 Pulse 84 Resp 16 Temp 37.3 ?C (99.1 ?F) Temp src SpO2 95 % Measured on Room air Physical Exam Vitals and nursing note reviewed. Exam conducted with a label drier present (Cherelle Morales RN). Constitutional: General: She [...] 0.01 - 0.07 10*3/uL COMP. METABOLIC PANEL (41463) Collection Time: 02/03/23 1:02 PM Result Value [...] LIPASE CBC WITH DIFF COMP. METABOLIC PANEL (41394) Orders Placed This Encounter Medications ketorolac (TORADOL) [...] for colonoscopy. Return precautions given. [LS] 1409 [place] given. Will check vaginal exam. [LS] 1408 [...] 1340 LIPASE [LS] 1340 COMP. METABOLIC PANEL (59087) [LS] 1340 CBC WITH DIFF(!) [LS] ED [...] FM-FAMILY MEDICINE Relationship: PCP - General [address] [facility] [address] [address] Instructions: As needed [facility] [address], [address] [facility] [address] Instructions: for a colonoscopy to evaluate the [...] Portions of this note were completed using [employer] Speaking Software. Occasional phonetic or grammatical errors may escape proofreading. Electronically signed by: Maria Victoria García M.D., [facility] Business Asst Clinical Professor of Emergency Medicine 02/03/2023 12:56 PM Maria Victoria García MD 02/03/23 1440 [facility]
--- NOTE | 2024-12-31 16:59 | RAD REPORT ---
Abdomen Exam Limited: 12/31/2024 4:50 PM CLINICAL HISTORY: ABD PAIN STUDY: Limited right upper quadrant ultrasound of abdomen. COMPARISON: None. FINDINGS: Liver: Within normal limits. Bile ducts: No intrahepatic or extrahepatic biliary ductal dilatation. Common bile duct measures 5 mm. Gallbladder: Normal. IMPRESSION: Unremarkable exam.
[2024-12-31 17:15] LABS: Absolute Lymphocytes (CBC) 3.3 K/uL (0.7-4.9); Hematocrit 35.1 % (36.0-45.0); Hemoglobin 12.5 g/dL (12.0-15.0); MCH 31.4 pg (27.0-35.0); MCHC 35.5 g/dL (32.0-36.0); MCV 88.4 fL (80-100); MPV 6.7 fL (7.6-11.3); Nucleated RBC Absolute Count 0.0 (0-0); Nucleated Red Blood Cells % 0.0 % (0-0); RBC Red Blood Cell Count 3.97 M/uL (3.86-4.86); White Blood Count 10.20 thou/uL (4.3-10.9)
[2024-12-31] MEDS ORDERED: ONDANSETRON 4 MG/2 ML VIAL ONE (17:19)
[2024-12-31] MEDS ORDERED: FAMOTIDINE 20 MG/2 ML VIAL IV ONE (17:19)
[2024-12-31] MEDS ORDERED: NA CHLORIDE 0.9% 1,000 ML ONE (17:19)
[2024-12-31] MEDS ORDERED: KETOROLAC 30 MG/ML INJ ONE (17:19)
[2024-12-31 17:34] LABS: ALT/SGPT 16 U/L (13-56); AST/SGOT < 10 U/L (15-37); Albumin 3.7 g/dL (3.4-5.0); Albumin/Globulin Ratio 1.2 (1.1-1.8); Alkaline Phosphatase 89 U/L (45-117); Anion Gap 8.2 mEq/L (5.0-15.0); BUN Blood Urea Nitrogen 13 mg/dL (7-18); Globulin 3.2 g/dL (2.3-3.5); Glucose Level 175 mg/dL (74-106); Lipase 28 U/L (13-75); Potassium 3.2 mEq/L (3.5-5.1)
--- NOTE | 2024-12-31 18:33 | RAD REPORT ---
EXAMINATION: Abdomen Pelvis W Contrast CLINICAL INDICATION: Female, 54 years old.ABD PAIN TECHNIQUE: CT abdomen and pelvis was performed, after the administration of IV contrast, as per [facility]. Axial, sagittal and coronal reconstructions were obtained. One or more of the following dose reduction techniques were used: Automated exposure control, adjustment of the mA and/o r kV according to patient size, and/or iterative reconstruction. Unless otherwise specified, incidental findings do not require dedicated imaging follow-up. [id number]. COMPARISON: 05/10/24 FINDINGS: LOWER CHEST: No acute process identified.No significant pericardial effusion. UPPER GI: No significant abnormality. LIVER: Benign appearing low density liver lesions. No suspicious mass. GALLBLADDER/BILE DUCTS: No biliary ductal dilatation.? PANCREAS: No mass, ductal dilation, or lenore-pancreatic fluid. SPLEEN: Unremarkable. ADRENALS: No adrenal masses. KIDNEYS AND URETERS: No hydronephrosis.No suspicious renal mass. ABDOMINAL AORTA AND OTHER VESSELS: Moderate atherosclerotic changes without aortic aneurysm. PERITONEUM: No abnormal free fluid. No free air. LYMPH NODES: No pathologic lymphadenopathy. ABDOMINAL WALL: Small fat containing umbilical hernia. SMALL BOWEL/COLON: Small bowel has normal course and caliber. No colonic wall thickening or pericolon ic inflammatory changes.Normal appendix. URINARY BLADDER: Underdistended but grossly unremarkable. REPRODUCTIVE ORGANS: No pathologic process. MUSCULOSKELETAL: No acute or suspicious osseous abnormality. ADDITIONAL FINDINGS: None. IMPRESSION: No acute findings within the abdomen or pelvis. No appendicitis.
--- NOTE | 2024-12-31 18:40 | ER ---
Nurse's Notes [facility] Name: Stephania Lobo Age: 54 yrs Sex: Female : 1970 Arrival Date: 12/31/2024 Time: 16:22 Bed 5 Private MD: Diagnosis: Upper abdominal pain, unspecified Presentation: 12/31 16:29 Chief complaint: Patient states: ABDOMINAL PAIN FOR 2 MONTHS AND WORSE NOW. PT REPORTS dd2 NAUSEA, AND FEVER X 2 WEEKS. DENIES VOMITING, DIARRHEA OR CONSTIPATION. Coronavirus screen: At this time, the client does not indicate any symptoms associated with coronavirus-19. Ebola Screen: No symptoms or risks identified at this time. Initial Sepsis Screen: Does the patient meet any 2 criteria? No. Patient's initial sepsis screen is negative. Does the patient have a suspected source of infection? No. Patient's initial sepsis screen is negative. Risk Assessment: Do you want to hurt yourself or someone else? Patient reports no desire to harm self or others. Onset of symptoms is unknown. 16:29 Method Of Arrival: Ambulatory dd2 16:29 Acuity: ANA 3 dd2 Triage Assessment: 16:32 General: Appears in no apparent distress. uncomfortable, Behavior is calm, cooperative, dd2 appropriate for age. Pain: Complains of pain in abdomen. GI: Abd is soft X 4 quads Abdomen is tender to palpation in umbilical area, right upper quadrant and right lower quadrant Reports lower abdominal pain, upper abdominal pain, bloating, nausea. 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 - Infectious Disease History:: Denies. - Social history:: Smoking status: Patient reports the use of cigarette tobacco products, smokes one-half pack cigarettes per day. Screenin:14 [facility] ED Fall Risk Assessment (Adult) History of falling in the last 3 months, iw including since admission No falls in past 3 months (0 pts) Confusion or Disorientation No (0 pts) Intoxicated or Sedated No (0 pts) Impaired Gait No (0 pts) Mobility Assist Device Used No (0 pt) Altered Elimination No (0 pt) Score/Fall Risk Level 0 - 2 = Low Risk Oriented to surroundings, Maintained a safe environment, Educated pt \T\ family on fall prevention, incl call for assistance when getting out of bed. Abuse screen: Denies threats or abuse. Nutritional screening: No deficits noted. Tuberculosis screening: Assessment: 17:13 General: Appears in no apparent distress. Behavior is calm, cooperative. Pain: iw Complains of pain in abdomen Pain. Neuro: Level of Consciousness is awake, alert, obeys commands, Oriented to person, place, time, situation, Moves all extremities. Full function. Cardiovascular: Patient's skin is warm and dry. GI: Abdomen is non-distended, Reports lower abdominal pain, upper abdominal pain. GI: Abd is soft X 4 quads Reports nausea. Derm: Skin is intact, is healthy with good turgor. Musculoskeletal: Range of motion: intact in all extremities. 18:50 Reassessment: Patient appears in no apparent distress at this time. Patient and/or iw family updated on plan of care and expected duration. Pain level reassessed. Patient is alert, oriented x 3, equal unlabored respirations, skin warm/dry/pink. Vital Signs: 16:29 BP 98 / 71; Pulse 70; Resp 16; Temp 97.3; Pulse Ox 100% on R/A; Weight 56.7 kg; Pain dd2 10/10; 17:35 Pulse 68; Resp 16; Pulse Ox 98% on R/A; Pain 10/10; iw 19:24 BP 106 / 66; Pulse 68; Resp 18; Temp 98.3; Pulse Ox 97% ; jj7 16:29 Pain Scale: Adult dd2 17:35 Pain Scale: Adult iw ED Course: 16:24 Patient arrived in ED. mr 16:25 Jenn Taylor FNP-C is PHCP. kb 16:25 Hoang Peralta DO is Attending Physician. kb 16:32 Triage completed. dd2 16:32 Arm band placed on right wrist. dd2 16:52 Abdomen Limited US In Process Unspecified. EDMS 17:02 Shayla Feliciano, RN is Primary Nurse. iw 17:05 Radiology exam delayed due to lab results not completed at this time. (BUN/Creatinine) nj IV insertion attempt and/or patient not having appropriate IV at this time. 17:13 Initial lab(s) drawn, by me, sent to lab. Inserted saline lock: 20 gauge in left iw antecubital area, using aseptic technique. Blood collected. Flushed with 10 mL NS. 17:34 Patient has correct armband on for positive identification. Call light in reach. Side iw rails up X2. Client placed on continuous cardiac and pulse oximetry monitoring. NIBP monitoring applied. 18:09 CT Abd/Pelvis - IV Contrast Only In Process Unspecified. EDMS 19:24 Provided Education on: meds. jj7 19:24 No provider procedures requiring assistance completed. IV discontinued, intact, jj7 bleeding controlled, No redness/swelling at site. Pressure dressing applied. Administered Medications: 17:34 Drug: Famotidine IVP 20 mg IVP once; dilute with 10 mL 0.9% NaCl; give over 2 minutes iw Route: IVP; Site: left antecubital; 19:14 Follow up: Response: No adverse reaction iw 17:34 Drug: TORadol - Ketorolac IVP 15 mg IVP once Route: IVP; Site: left antecubital; iw 19:13 Follow up: Response: No adverse reaction; Pain is decreased iw 17:34 Drug: Ondansetron IVP 4 mg IVP once; over 2 minutes Route: IVP; Site: left antecubital; iw 19:13 Follow up: Response: No adverse reaction iw 17:34 Drug: NS 0.9% IV 1000 ml IV at 1 bolus Per protocol; to be given as a bolus over 60 iw minutes Route: IV; Rate: 1 bolus; Site: left antecubital; 19:13 Follow up: IV Status: Completed infusion iw 19:24 Drug: Dicyclomine PO 20 mg PO once Route: PO; jj7 19:27 Follow up: Response: No adverse reaction jj7 19:24 Drug: HYDROcodone-acetaminophen PO 5 mg-325 mg 1 tabs PO once Route: PO; jj7 19:27 Follow up: Response: No adverse reaction jj7 Medication: 17:14 VIS not applicable for this client. iw Outcome: 18:40 Discharge ordered by MD. shirley 19:24 Discharged to home ambulatory, with friend, syeda 19:24 Condition: improved 19:24 Discharge instructions given to patient, Instructed on discharge instructions, medication usage, Demonstrated understanding of instructions, medications, Prescriptions given X 1, 19:28 Patient left the ED. jj7 Signatures: Dispatcher [employer] EDMS Jenn Taylor, NARROW GAUGE OPERATOR-C NARROW GAUGE OPERATOR-Sherley Alberto, [facility] Reg mr Shayla Feliciano, RN ELAINE Oconnell, Ric Mcnulty RN RN jj7 KEN DODD RN RN dd2 Corrections: (The following items were deleted from the chart) 16:34 16:32 LMP N/A - Post-menopause, Not dd2 dd2
--- NOTE | 2024-12-31 18:40 | EDPHYS ---
Physician Documentation [facility] Name: Stephania Lobo Age: 54 yrs Sex: Female : 1970 Arrival Date: 12/31/2024 Time: 16:22 Bed 5 Private MD: ED Physician Hoang Peralta HPI: 12/31 18:49 This 54 yrs old Female presents to ER via Ambulatory with complaints of kb Abdominal Pain, Nausea. 18:49 Pt is a 54 year old female who presents for upper abd pain that has been ongoing for 2 kb months. Patient has been seen by PCP, prescribed pantoprazole and Zofran and told to follow-up with GI. Patient states she has not made an appoint with GI yet but plans to call Dr. Mckay. Patient denies vomiting or diarrhea. States the pain has been worse over the last 2 weeks and she has developed fevers. Denies urinary symptoms.. 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 - Infectious Disease History:: Denies. - Social history:: Smoking status: Patient reports the use of cigarette tobacco products, smokes one-half pack cigarettes per day. ROS: 18:45 Constitutional: As per HPI kb Exam: 18:45 Constitutional: This is a well developed, well nourished patient who is awake, alert, kb and in no acute distress. Head/Face: Normocephalic, atraumatic. ENT: Moist Mucous membranes Cardiovascular: Regular rate Respiratory: Respirations even and unlabored. No increased work of breathing. Talking in full sentences Skin: Warm, dry with normal turgor. Normal color. MS/ Extremity: Pulses equal, no cyanosis. Neurovascular intact. Full, normal range of motion. Neuro: Awake and alert, GCS 15, oriented to person, place, time, and situation. 18:45 Abdomen/GI: Inspection: abdomen appears normal, Bowel sounds: normal, Palpation: soft, in all quadrants, mild abdominal tenderness, in the epigastric area, Vital Signs: 16:29 BP 98 / 71; Pulse 70; Resp 16; Temp 97.3; Pulse Ox 100% on R/A; Weight 56.7 kg; Pain dd2 10/10; 17:35 Pulse 68; Resp 16; Pulse Ox 98% on R/A; Pain 10/10; iw 19:24 BP 106 / 66; Pulse 68; Resp 18; Temp 98.3; Pulse Ox 97% ; jj7 16:29 Pain Scale: Adult dd2 17:35 Pain Scale: Adult iw MDM: 16:25 Medical Screening Exam initiated kb 18:45 Differential diagnosis: cholecystitis, Cholelithiasis, gastritis, gastroesophageal kb reflux disease, non-specific abd pain, pancreatitis. Data reviewed: vital signs, nurses notes. 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 12/31 16:30 Order name: CBC with Diff; Complete Time: 17:16 kb 12/31 16:30 Order name: CMP; Complete Time: 17:36 kb 12/31 16:30 Order name: Lipase; Complete Time: 17:36 kb 12/31 16:30 Order name: Abdomen Limited US; Complete Time: 17:03 kb 12/31 17:04 Order name: CT Abd/Pelvis - IV Contrast Only; Complete Time: 18:36 kb 12/31 16:30 Order name: IV Saline Lock; Complete Time: 17:13 kb 12/31 16:30 Order name: Labs collected and sent; Complete Time: 17:13 kb Administered Medications: 17:34 Drug: Famotidine IVP 20 mg IVP once; dilute with 10 mL 0.9% NaCl; give over 2 minutes iw Route: IVP; Site: left antecubital; 19:14 Follow up: Response: No adverse reaction iw 17:34 Drug: TORadol - Ketorolac IVP 15 mg IVP once Route: IVP; Site: left antecubital; iw 19:13 Follow up: Response: No adverse reaction; Pain is decreased iw 17:34 Drug: Ondansetron IVP 4 mg IVP once; over 2 minutes Route: IVP; Site: left antecubital; iw 19:13 Follow up: Response: No adverse reaction iw 17:34 Drug: NS 0.9% IV 1000 ml IV at 1 bolus Per protocol; to be given as a bolus over 60 iw minutes Route: IV; Rate: 1 bolus; Site: left antecubital; 19:13 Follow up: IV Status: Completed infusion iw 19:24 Drug: Dicyclomine PO 20 mg PO once Route: PO; jj7 19:27 Follow up: Response: No adverse reaction jj7 19:24 Drug: HYDROcodone-acetaminophen PO 5 mg-325 mg 1 tabs PO once Route: PO; jj7 19:27 Follow up: Response: No adverse reaction jj7 Disposition: 18:58 I was immediately available on-site in the Emergency Department for consultation in the ms3 care of the patient. Disposition Summary: 12/31/24 18:40 Discharge Ordered Notes: Location: Home kb Condition: Stable kb Diagnosis - Upper abdominal pain, unspecified kb Followup: kb - With: Emergency Department - When: As needed - Reason: Worsening of condition Followup: kb - With: Private Physician - When: 2 - 3 days - Reason: Recheck today's complaints, Continuance of care, Re-evaluation by your physician Discharge Instructions: - Discharge Summary Sheet kb - Abdominal Pain, Adult, [id number] kb Forms: - Medication Reconciliation Form kb - Antibiotic Education kb - Prescription Opioid Use kb - Patient Portal Instructions kb - Leadership Thank You Letter kb Prescriptions: - dicyclomine 20 mg Oral tablet - take 1 tablet ORAL route 4 times per day As needed; 20 tablet; Refills: 0, kb Product Selection Permitted Signatures: Dispatcher [employer] EDSC Jenn Taylor, EMBOSSER OPERATOR-C EMBOSSER OPERATOR-CkShayla Stone, RN RN iw Hoang Peralta DO DO ms3 Ric Araujo RN RN jj7 KEN DODD, RN RN dd2 Corrections: (The following items were deleted from the chart) 16:31 16:31 CBC+H.LAB.BRZ ordered. EDMS EDMS 16:31 16:31 COMPREHENSIVE METABOLIC PANEL+C.LAB.BRZ ordered. EDMS EDMS 16:31 16:31 LIPASE+C.LAB.BRZ ordered. EDMS EDMS 16:31 16:31 Abdomen Limited+US.RAD.BRZ ordered. EDMS EDMS
[2024-12-31] MEDS ORDERED: HYDROCODONE/APAP 5/325 MG TAB ONE (19:17)
[2024-12-31] MEDS ORDERED: DICYCLOMINE HCL 10 MG CAP ONE (19:17)
[2024-12-31 19:40] VITALS: BP 106/66; TEMP 98.3; O2SAT 97
== END 2024-12-31 19:28 | disposition home or self-care (01) ==
LOC: ER 16:22
DX: R10.13 Epigastric pain (principal); K21.9 Gastro-esophageal reflux disease without esophagitis; F17.210 Nicotine dependence, cigarettes, uncomplicated
CPT/HCPCS: 96361; 85025; 36415; 83690; 80053; 74177; 76705; 96375; 96374; 99284; Q9967; J2405; J7030

== ENCOUNTER 2025-01-13 14:31 | Emergency (ER) | payer OTHER ==
--- OUTSIDE RECORDS SUMMARY | 2025-01-13 14:41 | XMS REPORT | Continuity of Care Document ---
Author Name Unknown Address [address] [place] [address] [facility] Address [address] [place] [address] Care Team Providers Care Call Center Support Consultant Name Role Phone Felix Ritchie Primary Care Physician [phone] Zaida Jiang Attending Clinician Unavail able Papito See Attending Clinician Unavailable ISABELL ANTONIO Attending Clinician Unavail able LUIS PEARSON Attending Clinician Unavailable LUIS PEARSON Attending Clinician Unavailable Kim Callejas DO Attending Clinician [phone] Luis Pearson MD Attending Clinician ROMINA GILES Attending Clinician Unavailable SANDY SCALES Attending Clinician Unavailab MT Myrick Attending Clinician Unavailable MT RIVERA Attending Clinician Unavailable STEPHANIE TRAN Attending Clinician Unavailab Stephanie Portillo DO Attending Clinician +[phone] AkinsiIsabell Romero Attending Clinician + ALESIA LECHUGA Attending Clinician Unavailable Alesia Lechuga NP Attending Clinician + [phone] RICHARDSON LEON Attending Clinician Unavailable Richardson Leon DO Attending Clinician + JOSE GUADALUPE CAMPBELL Attending Clinician Unavaila yaneth Doctor Unassigned, Moca Attending Clinician U BRENNA Henson Attending Clinician Unav haroldo Samuel MD, Brenna Cronin Attending Clinician + MARIA VICTORIA GARCÍA Attending Clinician Unavailab Maria Victoria Renteria MD Attending Clinician [phone] Maggie BARRERA Attending Clinician Unavailable Maggie Schwartz Attending Clinician [phone] HOANG ALFARO Attending Clinician Unavailable MEHREEN SETHI Attending Clinician Unavailable Mehreen Smith Attending Clinician [phone] ARIANNE SHAY Attending Clinician Unavailabl Arianne Salgado MD Attending Clinician [phone] RONIT SANTIAGO Attending Clinician Unavailab Ronit Lopez Attending Clinician + [phone] DAYANNA HANNON Attending Clinician Unavailable Dayanna Hannon MD Attending Clinician + [phone] DELL NOBLE Attending Clinician Unavailable Dell Noble MD Attending Clinician +[phone] DANIEL JACOBSON Attending Clinician Unavailable Daniel Wylie Attending Clinician [phone] Jennifer Riley Attending Clinician + [phone] Onur Goldstein MD Attending Clinician [phone] Glenis Becerra RN Attending Clinician Unavaila CLIVE Douglas Attending Clinician Unavailabl latricia RauschShearer COOKY MACHINE OPERATOR, Atif Attending Clinician Clive Martinez Attending Clinician Maddie HENRY, Delia Attending Clinician Unavailable Carlo HENRY, Tessa Attending Clinician UnavailIsaac Langley MD Attending Clinician KIM CALLEJAS Admitting Clinician Unavailab ALESIA Thompson Admitting Clinician Unavailable JOSE GUADALUPE CAMPBELL Admitting Clinician Unavaila BRENNA Mcleod Admitting Clinician Unav ailable SCHOENSPADILLA, MARIA VICTORIA Admitting Clinician Unavailab ARIANNE Natarajan S Admitting Clinician UnavailDAYANNA Martin Admitting Clinician Unavailable DELL NOBLE Admitting Clinician Unavailable Onur Goldstein MD Admitting Clinician RICHARDSON LEON Admitting Clinician Unavailable Payers Payer Name Policy Type Policy Number Effective Date Expirati on Date Source [employer] [id number] 2018 00:00:00 Problems Condition Name Condition Details Condition Category Status Onset Date Resolution Date Last Treatment Date Treating Clinician Comments Source Heartburn Heartburn Problem Active -18 00:00: 00 [facility] Reduced libido Reduced Libido Problem Active 11-05 00:00: 00 [facility] Gastritis Gastritis Disease Active 08-04 00:00: 00 [facility] Insomnia Insomnia Disease Active 08-04 00:00: 00 [facility] Osteoarthr itis of knee Osteoarthr itis of knee Disease Active 17 00:00: 00 [facility] Severe anxiety with panic Severe anxiety with panic Disease Active -17 00:00: 00 [facility] Abdominal pain of unknown etiology Abdominal pain of unknown etiology Disease Active 2022-05 00:00: 00 [facility] BMI 25.0-25.9, adult BMI 25.0-25.9, adult Disease Active 6-14 00:00: 00 [facility] Positive depression screening Positive depression screening Disease Active 2019-05 00:00: 00 [facility] Uterine leiomyoma Uterine Leiomyoma Problem Active 07-19 00:00: 00 [facility] Anemia Anemia Problem Active 07-19 00:00: 00 [facility] S/P hysterecto my S/P hysterecto my Disease Active 07-07 00:00: 00 [facility] Smoker Smoker Disease Active 2012-05 00:00: 00 [facility] Well woman exam Well woman exam Disease Active 2012-05 00:00: 00 [facility] Vaginal mass Vaginal mass Problem Active [facility] Tobacco use Tobacco use disorder Problem Active [facility] [id number] Other chronic pain Problem [facility] [id number] Mixed hyperlipid emia Problem [facility] [id number] Neck pain Problem Commo n [facility] [id number] History of gross hematuria Problem [facility] [id number] Recurrent UTI Problem [facility] [id number] Gastroesop hageal reflux disease without esophagiti s Problem [facility] [id number] Cigarette nicotine dependence without complicati on Problem [facility] [id number] Seasonal allergies Problem [facility] [id number] Nephrolith iasis Problem [facility] [id number] Normocytic anemia Problem [facility] History of bilateral tubal ligation History of bilateral tubal ligation Disease Resolve d 11-01 00:00: 00 2023-09-18 00:00:00 2023-09-18 14:42:14 [facility] BMI 25.0-25.9, adult BMI 25.0-25.9, adult Disease Resolve d 6- 00:00: 00 2023-09-18 00:00:00 2023-09-18 14:41:52 [facility] Enteritis Enteritis Disease Resolve d 2020-05 0 00:00: 00 2023-09-18 00:00:00 2023-09-18 14:42:06 [facility] Dysuria Dysuria Disease Resolve d 2019-05 00:00: 00 2023-09-18 00:00:00 2023-09-18 14:41:53 [facility] Acute cystitis without hematuria Acute cystitis without hematuria Disease Resolve d 06-10 00:00: 00 2020-04-01 00:00:00 2020-04-01 14:08:40 [facility] Dyspareuni a Dyspareuni a Disease Resolve d 02-17 00:00: 00 2020-04-01 00:00:00 2020-04-01 14:08:43 [facility] Uterine fibroid Uterine fibroid Disease Resolve d 07-07 00:00: 00 2015-07-27 00:00:00 2015-07-27 15:21:54 [facility] Anemia due to chronic blood loss Anemia due to chronic blood loss Disease Resolve d 07-07 00:00: 00 2015-07-27 00:00:00 2015-07-27 15:21:59 [facility] Abnormal uterine bleeding Abnormal uterine bleeding Disease Resolve d 06-10 00:00: 00 2015-07-27 00:00:00 2015-07-27 15:21:47 [facility] Enlarged uterus Enlarged uterus Disease Resolve d 02-17 00:00: 00 2015-07-27 00:00:00 2015-07-27 15:21:43 [facility] Abnormal vaginal bleeding Abnormal vaginal bleeding Disease Resolve d 02-17 00:00: 00 2015-06-10 00:00:00 2015-06-10 13:32:07 [facility] Urinary tract infection, site not specified Urinary tract infection, site not specified Disease Resolve d 2013-05 006 00:00: 00 2015-06-10 00:00:00 2015-06-10 13:31:47 [facility] Bacterial vaginosis Bacterial vaginosis Disease Resolve d 2012-05 00:00: 00 2015-06-10 00:00:2015-06-10 13:31:31 [facility] Irregular periods/me nstrual cycles Irregular periods/me nstrual cycles Disease Resolve d 2012-05 00:00: 00 2015-06-10 00:00:00 2015-06-10 13:31:44 [facility] Breast pain Breast pain Disease Resolve d 2012-05 0 00:00: 00 2013-05-09 00:00:00 2013-05-09 09:50:08 [facility] Urinary tract infection, site not specified Urinary tract infection, site not specified Disease Resolve d 2012-05 023 00:00: 00 2013-05-09 00:00:00 2013-05-09 09:50:11 [facility] Allergies, Adverse Reactions, Alerts Allergy Name Allergy Type Status Severity Reaction(s) Onset Date Inactive Date Treating Clinician Comments Source NO KNOWN ALLERGIE S Drug Class Active [facility] Social History Social Habit Start Date Stop Date Quantity Comments Source Gender identity [facility] Sexual orientation [facility] History SDOH Alcohol Frequency [facility] History SDOH Alcohol Std Drinks [facility] History SDOH Alcohol Binge [facility] History of tobacco use Cigarette Smoker [facility] Sex Assigned [facility] Alcoholic beverage intake 2023-09-28 00:00:00 2023-09-28 00:00:00 Current drinker of alcohol (finding) [facility] History of Social function 2023-09-18 00:00:00 2023-09-18 00:00:00 [facility] Tobacco use and exposure 2023-09-18 00:00:00 2023-09-18 00:00:00 Smokeless tobacco non-user [facility] Tobacco Comment 2023-09-18 00:00:00 2023-09-18 00:00:00 3-4 cigarretes per day [facility] Cigarettes smoked current (pack per day) - Reported 2023-09-18 00:00:00 2023-09-18 00:00:00 [facility] Cigarette pack-years 2023-09-18 00:00:00 2023-09-18 00:00:00 [facility] Alcohol intake 2023-09-18 00:00:00 2023-09-18 00:00:00 Current drinker of alcohol (finding) [facility] Exposure to SARS-CoV-2 (event) 2022-10-07 00:00:00 2022-10-17 17:31:00 Not sure [facility] Alcohol Comment 2013-03-12 00:00:00 2013-03-12 00:00:00 on occasion [facility] Smoking Status Start Date Stop Date Source Light Tobacco Smoker [facility] Smokes tobacco daily 2023-09-18 00:00:00 [facility] Medications Ordered Medication Name Filled Medication Name [...] 1 dose, On Sun05/20/24 at 0115, [facility] HYDROcodone -acetaminop hen (NORCO) 10-325 mg tablet 1 tablet 2023-05 07:15: 00 05-20 06:28 :00 No 1{tbl} 1 tablet, Oral, ONCE, 1 dose, On Sun05/20/24 at 0115, [facility] methocarbam oL (ROBAXIN) tablet 1,000 mg 2023-05 06:15: 00 05-20 06:28 :00 No 1000mg 1,000 mg, Oral, ONCE, 1 dose, On Sun05/20/24 at 0015, [facility] ketorolac (TORADOL) tablet 10 mg 2023-05 06:15: 00 05-20 06:28 :00 No 10mg 10 mg, Oral, ONCE, 1 dose, On Sun05/20/24 at 0015, [facility] dicyclomine (BENTYL) tablet 20 mg 2023-05 05:30: 00 05-20 06:28 :00 No 20mg 20 mg, Oral, ONCE, 1 dose, On Sun05/19/24 at 2330, [facility] methocarbam oL 500 mg tablet 2023-05 00:00: 00 Yes [id number] 500mg Take 1 tablet by mouth 4 (four) times daily as needed for Pain (scale 7-10). [facility] HYDROcodone -acetaminop hen 5-325 mg tablet 2023-05 00:00: 00 05-28 05:59 :00 No [id number] 1{tbl} Take 1 tablet by mouth every 6 (six) hours as needed for Pain (scale 7-10) for up to 7 days. Indication s: acute pain [facility] neomycin-po lymyxin-hyd rocort 3.5 mg-10,000 unit/mL-1 % ear drops,susp 2023-05 00:00: 00 Yes 4mg/mL- unit/mL -% Torsten Harrison Cipro 500 mg tablet 2023-05 00:00: 00 Yes 1mg Torsten [facility] ibuprofen 800 mg tablet 2023-05 00:00: 00 Yes 1mg Torsten Harrison ibuprofen 800 mg tablet 12-09 00:00: 00 Yes [id number] 800mg Take 1 tablet by mouth 3 (three) times daily as needed for Pain (scale 4-6). [facility] methylPREDN ISolone (MEDROL, AUBREE,) 4 mg tablets 12-09 00:00: 00 Yes [id number] Take by mouth SEE-INSTRU CTIONS. follow package directions [facility] loratadine- pseudoephed rine (CLARITIN-D 24 HOUR) 10-240 mg per 24 hr tablet 12-09 00:00: 00 Yes [id number] 1{tbl} Take 1 tablet by mouth in the morning. [facility] amoxicillin 500 mg tablet 12-09 00:00: 00 12-20 04:59 :00 No [id number] 500mg Take 1 tablet by mouth in the morning and 1 tablet in the evening. Do all this for 10 days. [facility] neomycin-po lymyxin-hyd rocort 3.5 mg-10,000 unit/mL-1 [...] 1 dose, On Sun09/28/23 at 2300, ANCELMO [facility] amoxicillin 875 mg tablet 09-27 00:00: 00 10-05 04:59 :00 No [id number] 875mg Take 1 tablet by mouth in the morning and 1 tablet in the evening. Do all this for 7 days. [facility] dicyclomine (BENTYL) injection 20 mg 08-05 00:30: 00 08-05 00:26 :00 No 20mg 20 mg, Intramuscu lar, ONCE NOW, 1 dose, On Sun08/05/23 at 1930, Routine [facility] iopamidol (ISOVUE 370-500 mL) injection 80 mL 08-04 22:15: 00 08-04 22:30 :00 No [id number] 80mL 80 mL, Intravenou s, ONCE, 1 dose, On Sun08/05/23 at 1730, Routine [facility] FENTanyl PF (SUBLIMAZE (PF)) injection 50 mcg 08-04 22:15: 00 08-04 21:38 :00 No 50ug 50 mcg, Slow IV Push, ONCE, 1 dose, On Sun08/05/23 at 1715, Routine [facility] ketorolac (TORADOL) injection 30 mg 08-04 21:45: 00 08-04 20:57 :00 No 30mg 30 mg, Slow IV Push, ONCE, 1 dose, On Sun08/05/23 at 1645, Routine [facility] NaCl 0.9% (NS) bolus infusion 1,000 mL 08-04 21:30: 00 08-04 22:45 :00 No 1000mL at 999 mL/hr, 1,000 mL, IV Infusion, ONCE, 1 dose, On Sun08/05/23 at 1630, ANCELMO [facility] ondansetron (ZOFRAN (PF)) injection 4 mg 08-04 20:45: 00 08-04 20:57 :00 No 4mg 4 mg, Slow IV Push, ONCE, 1 dose, On Sun08/05/23 at 1545, ANCELMO [facility] SERTraline (ZOLOFT) 50 mg tablet 08-04 15:33: 29 08-04 00:00 :00 No 50mg Take 1 tablet by mouth in the morning. [facility] ALPRAZolam 0.25 mg tablet 08-04 15:33: 26 08-04 00:00 :00 No .25mg Take 1 tablet by mouth 2 (two) times daily as needed for Anxiety. [facility] dicyclomine 20 mg tablet 08-04 00:00: 00 09-17 00:00 :00 No [id number] 20mg Take 1 tablet by mouth 4 (four) times daily as needed for Abdominal pain. [facility] neomycin-po lymyxin-hyd rocortisone otic solution 08-04 00:00: 00 08-12 04:59 :00 No [id number] 65009 3[drp] Place 3 Drops in right ear 4 (four) times daily for 7 days. [facility] polyethylen e glycol 3350 17 gram/dose powder 08-04 00:00: 00 08-10 04:59 :00 No [id number] 17g Take 17 g by mouth in the morning for 5 days. [facility] benzonatate 100 mg capsule 05-24 00:00: 00 Yes [id number] 100mg Take 1 capsule by mouth 3 (three) times daily as needed for Cough. [facility] chlorphenir amine 4 mg tablet 05-24 00:00: 00 Yes [id number] 4mg Take 1 tablet by mouth every 6 (six) hours as needed for Allergies or Runny nose. [facility] iopamidol (ISOVUE 370-500 mL) injection 65 mL 2022-05 05:15: 00 05-12 05:15 :00 No [id number] 65mL 65 mL, Intravenou s, ONCE, 1 dose, On Sun05/11/23 at 2315, Routine [facility] NaCl 0.9% (NS) bolus infusion 1,000 mL 2022-05 02:15: 00 05-12 03:45 :00 No 1000mL at 999 mL/hr, 1,000 mL, IV Infusion, ONCE, 1 dose, On Sun05/11/23 at 2015, ANCELMO [facility] morpHINE (4 mg/mL) injection 4 mg 2022-05 01:30: 00 05-12 01:44 :00 No 4mg 4 mg, Slow IV Push, ONCE, 1 dose, On Sun05/11/23 at 1930, STAT [facility] simethicone 80 mg chewable tablet 2022-05 00:00: 00 06-11 05:59 :00 No [id number] 80mg Take 1 tablet by mouth after meals and at bedtime for 30 days. [facility] dicyclomine 20 mg tablet 2022-05 00:00: 00 05-17 05:59 :00 No [id number] 20mg Take 1 tablet by mouth in the morning and 1 tablet in the evening. Do all this for 5 days. [facility] cyclobenzap rine (FLEXERIL) tablet 5 mg 2022-05 01:45: 00 03-07 00:57 :00 No 5mg 5 mg, Oral, ONCE NOW, 1 dose, On Sun03/06/23 at 2045, Routine [facility] ketorolac (TORADOL) injection 30 mg 2022-05 01:45: 00 03-07 00:56 :00 No 30mg 30 mg, Slow IV Push, ONCE, 1 dose, On Sun03/06/23 at 2045, Routine [facility] NaCl 0.9% (NS) bolus infusion 500 mL 2022-05 23:30: 00 03-07 00:57 :00 No 500mL at 999 mL/hr, 500 mL, IV Infusion, ONCE, 1 dose, On Sun03/06/23 at 1830, STAT [facility] acetaminoph en (TYLENOL) tablet 1,000 mg 2022-05 22:00: 00 03-06 23:46 :00 No 1000mg 1,000 mg, Oral, ONCE NOW, 1 dose, On Sun03/06/23 at 1700, Routine [facility] diphenhydrA MINE (BENADRYL) injection 25 mg 2022-05 21:15: 00 03-06 23:45 :00 No 25mg 25 mg, Slow IV Push, ONCE, 1 dose, On Sun03/06/23 at 1615, STAT [facility] metoclopram kelsie HCl (REGLAN) injection 10 mg 2022-05 21:15: 00 03-06 23:45 :00 No 10mg 10 mg, Slow IV Push, ONCE, 1 dose, On Sun03/06/23 at 1615, ANCELMO [facility] iopamidol (ISOVUE 370-500 mL) injection 70 mL 02-03 19:30: 00 02-03 19:30 :00 No [id number] 70mL 70 mL, Intravenou s, ONCE, 1 dose, On 02/03/23 at 1430, Routine [facility] HYDROcodone -acetaminop hen (NORCO 5) 5-325 mg tablet 1 tablet 02-03 19:15: 00 02-03 19:12 :00 No 1{tbl} 1 tablet, Oral, ONCE, 1 dose, [facility]03[facility]23 [facility] 14[facility] 30 mg 02-03 19:15: 00 02-03 18:12 :00 No 30mg 30 mg, Slow IV Push, ONCE, 1 dose, On 02/03/23 at 1415, [facility] NaCl 0.9% (NS) bolus infusion 1,000 mL 02-03 19:00: 00 02-03 19:11 :00 No 1000mL at 999 mL/hr, 1,000 mL, IV Infusion, ONCE, 1 dose, On 9/16/23 at 1400, [facility] ondansetron (ZOFRAN (PF)) injection 4 mg 02-03 18:15: 00 02-03 18:11 :00 No 4mg 4 mg, Slow IV Push, ONCE, 1 dose, On 02/03/23 at 1315, [facility] ondansetron 4 mg disintegrat ing tablet 02-03 00:00: 00 08-04 00:00 :00 No [id number] 4mg Take 1 tablet by mouth every 8 (eight) hours as needed for Nausea and Vomiting (N/V). [facility] phenazopyri dine (PYRIDIUM) tablet 200 mg 10-18 01:15: 00 10-18 01:19 :00 No 200mg 200 mg, Oral, ONCE, 1 dose, On Sun10/17/22 at 2014, [facility] cefTRIAXone (ROCEPHIN) 1,000 mg in NaCl 0.9% (NS) 100 mL MINI-BAG 10-18 01:15: 00 10-18 01:49 :00 No 1000mg 1,000 mg, IV Piggyback, ONCE, 1 dose, On Sun10/17/22 at 2014, Administer over 30 Minutes, 100 mL
Reas on for Anti-Infec tive: Documented Infection< br>Documen colby Infection Site: Urine
D uration of Therapy: Other (see Comments) [facility] NaCl 0.9% (NS) bolus infusion 1,000 mL 10-18 00:45: 00 10-18 00:54 :00 No 1000mL at 999 mL/hr, 1,000 mL, IV Infusion, ONCE, 1 dose, On Sun10/17/22 at 1945, STAT [facility] ondansetron (ZOFRAN (PF)) injection 4 mg 10-18 00:45: 00 10-17 23:56 :00 No 4mg 4 mg, Slow IV Push, ONCE, 1 dose, On Sun10/17/22 at 1945, [facility] ibuprofen (IBU) tablet 600 mg 10-17 23:45: 00 10-17 23:56 :00 No 600mg 600 mg, Oral, ONCE, 1 dose, On Sun10/17/22 at 1845, ANCELMO [facility] ondansetron 4 mg disintegrat ing tablet 10-17 00:00: 00 Yes [id number] 4mg Take 1 tablet by mouth every 8 (eight) hours as needed for Nausea and Vomiting (N/V). [facility] ibuprofen 600 mg tablet 10-17 00:00: 00 08-04 00:00 :00 No [id number] 600mg Take 1 tablet by mouth every 6 (six) hours as needed for Pain (scale 4-6). [facility] cefdinir 300 mg capsule 10-17 00:00: 00 10-28 04:59 :00 No [id number] 300mg Take 1 capsule by mouth every 12 (twelve) hours for 10 days. [facility] acetaminoph en (TYLENOL) tablet 650 mg 08-06 07:15: 00 08-06 07:18 :00 No 650mg 650 mg, Oral, ONCE, 1 dose, On Sun08/06/22 at 0215, [facility] SERTraline (ZOLOFT) 50 mg tablet 08-06 03:25: 57 Yes 50mg Take 1 tablet by mouth in the morning. [facility] ALPRAZolam 0.25 mg tablet 08-06 03:25: 57 Yes .25mg Take 1 tablet by mouth 2 (two) times daily as needed for Anxiety. [facility] ibuprofen 600 mg tablet 08-06 00:00: 00 08-04 00:00 :00 No [id number] 600mg Take 1 tablet by mouth every 6 (six) hours as needed for Pain (scale 4-6) or Pain (scale 1-3). [facility] acetaminoph en (TYLENOL) tablet 1,000 mg 07-20 09:15: 00 07-20 08:15 :00 No 1000mg 1,000 mg, Oral, ONCE, 1 dose, On Sun07/20/22 at 0315, Routine [facility] maalox:diph enhydrAMINE :lidocaine 2 % viscous 1:1:1 (FIRST-MOUT HWASH BLM) oral suspension 15 mL 07-20 08:15: 00 07-20 08:16 :00 No 15mL 15 mL, Oral, ONCE, 1 dose, On Sun07/20/22 at 0215, Routine [facility] NaCl 0.9% (NS) bolus infusion 1,000 mL 07-20 07:30: 00 07-20 08:14 :00 No 1000mL at 999 mL/hr, 1,000 mL, IV Infusion, ONCE, 1 dose, On Sun07/20/22 at 0130, STAT [facility] ondansetron (ZOFRAN (PF)) injection 4 mg 07-20 06:30: 00 07-20 06:33 :00 No 4mg 4 mg, Slow IV Push, ONCE, 1 dose, On Sun07/20/22 at 0030, ANCELMO [facility] amoxicillin -clavulanat e 875-125 mg per tablet 07-20 00:00: 00 Yes [id number] 1{tbl} Take 1 tablet by mouth every 12 (twelve) hours. [facility] ondansetron 4 mg disintegrat ing tablet 07-20 00:00: 00 Yes [id number] 4mg Take 1 tablet by mouth every 8 (eight) hours as needed for Nausea and Vomiting (N/V). [facility] phenazopyri dine (PYRIDIUM) tablet 200 mg 05-23 17:15: 00 05-23 17:15 :00 No 200mg 200 mg, Oral, ONCE, 1 dose, On Sun05/23/22 at 1115, ANCELMO [facility] phenazopyri dine 200 mg tablet 05-23 00:00: 00 08-06 00:00 :00 No [id number] 200mg Take 1 tablet by mouth in the morning and 1 tablet at noon and 1 tablet in the evening. [facility] cephALEXin (KEFLEX) 500 mg capsule - 00:00: 00 05-31 05:59 :00 No [id number] 500mg Take 1 capsule by mouth in the morning and 1 capsule at noon and 1 capsule in the evening. Do all this for 7 days. [facility] piperacilli n-tazobacta m (ZOSYN) 3.375 g in NaCl 0.9% (NS) 50 mL MINI-BAG 2021-05 00:00: 00 03-14 00:43 :00 No 3.375g 3.375 g, IV Piggyback, ONCE, 1 dose, On Sun03/13/22 at 1900, Administer over 30 Minutes, 50 mL
Reas on for Anti-Infec tive: Documented Infection< br>Documen colby Infection Site: Abdominal< br>Duratio n of Therapy: 10 days [facility] iopamidol (ISOVUE 370-500 mL) injection 70 mL 2021-05 23:30: 00 03-13 23:30 :00 No [id number] 70mL 70 mL, Intravenou s, ONCE, 1 dose, On Sun03/13/22 at 1830, Routine [facility] ketorolac (TORADOL) injection 15 mg 2021-05 22:00: 00 03-13 21:33 :00 No 15mg 15 mg, Slow IV Push, ONCE, 1 dose, On Sun03/13/22 at 1700, Routine [facility] amoxicillin -clavulanat e 875-125 mg per tablet 2021-0524 00:00: 00 03-24 04:59 :00 No [id number] 1{tbl} Take 1 tablet by mouth every 12 (twelve) hours for 10 days. [facility] ketorolac (TORADOL) injection 30 mg 9-04 03:30: 00 01-22 02:38 :00 No 30mg 30 mg, Slow IV Push, ONCE, 1 dose, On 01/21/22 at 2230, Routine [facility] iopamidol (ISOVUE 370-500 mL) injection 60 mL 01-22 02:30: 00 01-22 02:30 :00 No [id number] 60mL 60 mL, Intravenou s, ONCE, 1 dose, On 01/21/22 at 2130, Routine [facility] ondansetron (ZOFRAN (PF)) injection 4 mg 01-22 01:15: 00 01-22 01:15 :00 No 4mg 4 mg, Slow IV Push, ONCE, 1 dose, On 01/21/22 at 2015, ANCELMO [facility] NaCl 0.9% (NS) bolus infusion 500 mL 01-22 01:15: 00 01-22 02:35 :00 No 500mL at 999 mL/hr, 500 mL, IV Infusion, ONCE, 1 dose, On 01/21/22 at 2015, STAT [facility] cefdinir 300 mg capsule 01-21 00:00: 00 08-06 00:00 :00 No [id number] 300mg Take 1 capsule by mouth every 12 (twelve) hours. [facility] ketorolac 10 mg tablet 01-21 00:00: 00 08-06 00:00 :00 No [id number] 10mg Take 1 tablet by mouth every 6 (six) hours as needed for Pain (scale 4-6). [facility] metroNIDAZO LE 500 mg tablet 10-26 00:00: 00 08-06 00:00 :00 No [id number] 500mg Take 1 tablet by mouth 2 (two) times daily. [facility] cefdinir 300 mg capsule 10-26 00:00: 00 11-03 04:59 :00 No [id number] 300mg Take 1 capsule by mouth 2 (two) times daily for 7 days. [facility] doxycycline hyclate 100 mg capsule 2022-0 6-08 00:00: 00 11-01 00:00 :00 No [id number] 100mg Take 1 capsule by mouth 2 (two) times daily. [facility] ondansetron 4 mg disintegrat ing tablet 10-26 00:00: 00 11-01 00:00 :00 No [id number] 4mg Take 1 tablet by mouth every 8 (eight) hours as needed for Nausea and Vomiting (N/V). [facility] amoxicillin -clavulanat e 875-125 mg per tablet 2020-05 00:00: 00 11-01 00:00 :00 No [id number] 1{tbl} Take 1 tablet by mouth every 12 (twelve) hours. [facility] ofloxacin 0.3 % otic drops 2020-05 00:00: 00 11-01 00:00 :00 No [id number] 5[drp] Place 5 Drops in right ear 2 (two) times daily. [facility] neomycin-po lymyxin-hyd rocortisone 3.5-10,000- 1 mg/mL-unit/ mL-% otic susp 2020-05 00:00: 00 11-01 00:00 :00 No [id number] 4[drp] Place 4 Drops in right ear 4 (four) times daily. [facility] ciprofloxac in HCl 500 mg tablet 2020-05 00:00: 00 11-01 00:00 :00 No [id number] 500mg Take 1 tablet by mouth 2 (two) times daily. [facility] phenazopyri dine 200 mg tablet 2020-05 00:00: 00 11-01 00:00 :00 No [id number] 200mg Take 1 tablet by mouth 3 (three) times daily. [facility] guaiFENesin (MUCINEX) 600 mg tablet 2020-05 00:00: 00 11-01 00:00 :00 No [id number] 600mg Take 1 tablet by mouth every 12 (twelve) hours. [facility] Kenalog (Triamcinol one) Kenalog (Triamcinol one) 2019-0 07-28 00:00: 00 No 40mg [facility] Benadryl Benadryl No Benadryl [facility] melatonin melatonin No melatonin [facility] ondansetron HCl 4 mg tablet TAKE 1 TABLET BY MOUTH ONCE DAILY NEEDED ondansetron HCl 4 mg tablet TAKE 1 TABLET BY MOUTH ONCE DAILY NEEDED No ondansetro n HCl 4 mg tablet TAKE 1 TABLET BY MOUTH ONCE DAILY NEEDED [facility] pantoprazol e 40 mg tablet,rosie yed [...] HOUR BEFORE MORNING MEAL FOR 30 DAYS [facility] tramadol 50 mg tablet TAKE 1 TABLET BY MOUTH ONCE DAILY NEEDED tramadol 50 mg tablet TAKE 1 TABLET BY MOUTH ONCE DAILY NEEDED No tramadol 50 mg tablet TAKE 1 TABLET BY MOUTH ONCE DAILY NEEDED [facility] Immunizations Ordered Immunization Name Filled Immunization Name Date Status Comments Source Pneumococcal Polysaccharide, PPSV23 (PNEUMOVAX) 2023-12-10 18:02:00 Completed [facility] Influenza Virus Vaccine Quad IM 3+ YRS 2023-12-10 18:02:00 Completed [facility] Influenza Virus Vaccine Quad IM, Preserv and ABX Free 6 MO-64 YRS (FLUCELVAX) 2023-12-10 18:02:00 Completed [facility] SARS-COV-2 COVID-19 PFIZER VACCINE 2023-12-10 18:02:00 Completed [facility] Pneumococcal Polysaccharide, PPSV23 (PNEUMOVAX) 2023-09-28 22:49:00 Completed [facility] Influenza Virus Vaccine Quad IM 3+ YRS 2023-09-28 22:49:00 Completed [facility] Influenza Virus Vaccine Quad IM, Preserv and ABX Free 6 MO-64 YRS (FLUCELVAX) 2023-09-28 22:49:00 Completed [facility] SARS-COV-2 COVID-19 PFIZER VACCINE 2023-09-28 22:49:00 Completed [facility] Pneumococcal Polysaccharide, PPSV23 (PNEUMOVAX) 2023-09-18 13:15:00 Completed [facility] Influenza Virus Vaccine Quad IM, Preserv and ABX Free 6 MO-64 YRS (FLUCELVAX) 2023-09-18 13:15:00 Completed [facility] SARS-COV-2 COVID-19 PFIZER VACCINE 2023-09-18 13:15:00 Completed [facility] Influenza Virus Vaccine Quad IM 3+ YRS 2023-09-18 13:15:00 Completed [facility] Pneumococcal Polysaccharide, PPSV23 (PNEUMOVAX) 2023-08-05 15:10:00 Completed [facility] Influenza Virus Vaccine Quad IM 3+ YRS 2023-08-05 15:10:00 Completed [facility] Influenza Virus Vaccine Quad IM, Preserv and ABX Free 6 MO-64 YRS (FLUCELVAX) 2023-08-05 15:10:00 Completed [facility] SARS-COV-2 COVID-19 PFIZER VACCINE 2023-08-05 15:10:00 Completed [facility] Pneumococcal Polysaccharide, PPSV23 (PNEUMOVAX) 2023-05-24 19:16:00 Completed [facility] Influenza Virus Vaccine Quad IM 3+ YRS 2023-05-24 19:16:00 Completed [facility] Influenza Virus Vaccine Quad IM, Preserv and ABX Free 6 MO-64 YRS (FLUCELVAX) 2023-05-24 19:16:00 Completed [facility] SARS-COV-2 COVID-19 PFIZER VACCINE 2023-05-24 19:16:00 Completed [facility] Pneumococcal Polysaccharide, PPSV23 (PNEUMOVAX) 2023-05-11 18:59:00 Completed [facility] Influenza Virus Vaccine Quad IM 3+ YRS 2023-05-11 18:59:00 Completed [facility] Influenza Virus Vaccine Quad IM, Preserv and ABX Free 6 MO-64 YRS (FLUCELVAX) 2023-05-11 18:59:00 Completed [facility] SARS-COV-2 COVID-19 PFIZER VACCINE 2023-05-11 18:59:00 Completed [facility] Pneumococcal Polysaccharide, PPSV23 (PNEUMOVAX) 2023-05-11 00:00:00 Completed [facility] Influenza Virus Vaccine Quad IM 3+ YRS 2023-05-11 00:00:00 Completed [facility] Influenza Virus Vaccine Quad IM, Preserv and ABX Free 6 MO-64 YRS (FLUCELVAX) 2023-05-11 00:00:00 Completed [facility] SARS-COV-2 COVID-19 PFIZER VACCINE 2023-05-11 00:00:00 Completed [facility] Pneumococcal Polysaccharide, PPSV23 (PNEUMOVAX) 2023-03-06 14:57:00 Completed [facility] Influenza Virus Vaccine Quad IM 3+ YRS 2023-03-06 14:57:00 Completed [facility] Influenza Virus Vaccine Quad IM, Preserv and ABX Free 6 MO-64 YRS (FLUCELVAX) 2023-03-06 14:57:00 Completed [facility] SARS-COV-2 COVID-19 PFIZER VACCINE 2023-03-06 14:57:00 Completed [facility] Pneumococcal Polysaccharide, PPSV23 (PNEUMOVAX) 2022-08-24 00:00:00 Completed [facility] Influenza Virus Vaccine Quad IM 3+ YRS 2022-08-24 00:00:00 Completed [facility] Influenza Virus Vaccine Quad IM, Preserv and ABX Free 6 MO-64 YRS (FLUCELVAX) 2022-08-24 00:00:00 Completed [facility] SARS-COV-2 COVID-19 PFIZER VACCINE 2022-08-24 00:00:00 Completed [facility] Pneumococcal Polysaccharide, PPSV23 (PNEUMOVAX) 2021-05-16 00:00:00 Completed [facility] Influenza Virus Vaccine Quad IM 3+ YRS 2021-05-16 00:00:00 Completed [facility] Influenza Virus Vaccine Quad IM, Preserv and ABX Free 6 MO-64 YRS (FLUCELVAX) 2021-05-16 00:00:00 Completed [facility] SARS-COV-2 COVID-19 PFIZER VACCINE 2021-05-16 00:00:00 Completed [facility] Influenza Virus Vaccine Quad IM, Preserv and ABX Free 6 MO-64 YRS 2021-03-12 00:00:00 Completed [facility] SARS-COV-2 COVID-19 PFIZER VACCINE 2021-03-12 00:00:00 Completed [facility] Influenza Virus Vaccine Quad IM, Preserv and ABX Free 6 MO-64 YRS 2021-03-12 00:00:00 Completed [facility] SARS-COV-2 COVID-19 PFIZER VACCINE 2021-03-12 00:00:00 Completed [facility] Influenza Virus Vaccine Quad IM, Preserv and ABX Free 6 MO-64 YRS 2021-03-12 00:00:00 Completed [facility] SARS-COV-2 COVID-19 PFIZER VACCINE 2021-03-12 00:00:00 Completed [facility] Influenza Virus Vaccine Quad IM, Preserv and ABX Free 6 MO-64 YRS 2021-03-12 00:00:00 Completed [facility] SARS-COV-2 COVID-19 PFIZER VACCINE 2021-03-12 00:00:00 Completed [facility] Influenza Virus Vaccine Quad IM, Preserv and ABX Free 6 MO-64 YRS 2021-03-12 00:00:00 Completed [facility] SARS-COV-2 COVID-19 PFIZER VACCINE 2021-03-12 00:00:00 Completed [facility] Influenza Virus Vaccine Quad IM, Preserv and ABX Free 6 MO-64 YRS 2021-03-12 00:00:00 Completed [facility] SARS-COV-2 COVID-19 PFIZER VACCINE 2021-03-12 00:00:00 Completed [facility] Influenza Virus Vaccine Quad IM, Preserv and ABX Free 6 MO-64 YRS 2021-03-12 00:00:00 Completed [facility] SARS-COV-2 COVID-19 PFIZER VACCINE 2021-03-12 00:00:00 Completed [facility] Influenza Virus Vaccine Quad IM, Preserv and ABX Free 6 MO-64 YRS 2021-03-12 00:00:00 Completed [facility] SARS-COV-2 COVID-19 PFIZER VACCINE 2021-03-12 00:00:00 Completed [facility] Influenza Virus Vaccine Quad IM, Preserv and ABX Free 6 MO-64 YRS 2021-03-12 00:00:00 Completed [facility] SARS-COV-2 COVID-19 PFIZER VACCINE 2021-03-12 00:00:00 Completed [facility] Influenza Virus Vaccine Quad IM, Preserv and ABX Free 6 MO-64 YRS (FLUCELVAX) 2021-03-12 00:00:00 Completed [facility] SARS-COV-2 COVID-19 PFIZER VACCINE 2021-03-12 00:00:00 Completed [facility] Pneumococcal Polysaccharide, PPSV23 (PNEUMOVAX) 2020-07-29 00:00:00 Completed [facility] Influenza Virus Vaccine Quad IM 3+ YRS 2020-07-29 00:00:00 Completed [facility] Influenza Virus Vaccine Quad .5 mL IM 6+ MO 2020-04-01 00:00:00 Completed [facility] Influenza Virus Vaccine Quad .5 mL IM 6+ MO 2020-04-01 00:00:00 Completed [facility] Influenza Virus Vaccine Quad .5 mL IM 6+ MO 2020-04-01 00:00:00 Completed [facility] Influenza Virus Vaccine Quad .5 mL IM 6+ MO 2020-04-01 00:00:00 Completed [facility] Influenza Virus Vaccine Quad .5 mL IM 6+ MO 2020-04-01 00:00:00 Completed [facility] Influenza Virus Vaccine Quad .5 mL IM 6+ MO 2020-04-01 00:00:00 Completed [facility] Influenza Virus Vaccine Quad .5 mL IM 6+ MO 2020-04-01 00:00:00 Completed [facility] Influenza Virus Vaccine Quad .5 mL IM 6+ MO 2020-04-01 00:00:00 Completed [facility] Influenza Virus Vaccine Quad .5 mL IM 6+ MO 2020-04-01 00:00:00 Completed [facility] Influenza Virus Vaccine Quad .5 mL IM 6+ MO (FLUZONE/FLULAVAL/F LUARIX) 2020-04-01 00:00:00 Completed [facility] Influenza Virus Vaccine Quad .5 mL IM 6+ MO (FLUZONE/FLULAVAL/F LUARIX) 2020-04-01 00:00:00 Completed [facility] Kenalog (Triamcinolone) Kenalog (Triamcinolone) 2019-07-29 11:43:00 Completed [facility] Kenalog (Triamcinolone) Kenalog (Triamcinolone) 2018-07-15 11:45:00 Completed [facility] Afluria Afluria 2018-06-19 10:52:00 Completed [facility]00:00 Completed [facility] Pneumococcal Polysaccharide, PPSV23 (PNEUMOVAX) 2015-07-09 00:00:00 Completed [facility] Influenza Virus Vaccine Quad IM 3+ YRS 2015-07-09 00:00:00 Completed [facility] Pneumococcal Polysaccharide, PPSV23 (PNEUMOVAX) 2015-07-09 00:00:00 Completed [facility] Influenza Virus Vaccine Quad IM 3+ YRS 2015-07-09 00:00:00 Completed [facility] Pneumococcal Polysaccharide, PPSV23 (PNEUMOVAX) 2015-07-09 00:00:00 Completed [facility] Influenza Virus Vaccine Quad IM 3+ YRS 2015-07-09 00:00:00 Completed [facility] Pneumococcal Polysaccharide, PPSV23 (PNEUMOVAX) 2015-07-09 00:00:00 Completed [facility] Influenza Virus Vaccine Quad IM 3+ YRS 2015-07-09 00:00:00 Completed [facility] Pneumococcal Polysaccharide, PPSV23 (PNEUMOVAX) 2015-07-09 00:00:00 Completed [facility] Influenza Virus Vaccine Quad IM 3+ YRS 2015-07-09 00:00:00 Completed [facility] Pneumococcal Polysaccharide, PPSV23 (PNEUMOVAX) 2015-07-09 00:00:00 Completed [facility] Influenza Virus Vaccine Quad IM 3+ YRS 2015-07-09 00:00:00 Completed [facility] Pneumococcal Polysaccharide, PPSV23 (PNEUMOVAX) 2015-07-09 00:00:00 Completed [facility] Influenza Virus Vaccine Quad IM 3+ YRS 2015-07-09 00:00:00 Completed [facility] Pneumococcal Polysaccharide, PPSV23 (PNEUMOVAX) 2015-07-09 00:00:00 Completed [facility] Influenza Virus Vaccine Quad IM 3+ YRS 2015-07-09 00:00:00 Completed [facility] Pneumococcal Polysaccharide, PPSV23 (PNEUMOVAX) 2015-07-09 00:00:00 Completed [facility] Influenza Virus Vaccine Quad IM 3+ YRS 2015-07-09 00:00:00 Completed [facility] Pneumococcal Polysaccharide, PPSV23 (PNEUMOVAX) 2015-07-09 00:00:00 Completed [facility] Influenza Virus Vaccine Quad IM 3+ YRS 2015-07-09 00:00:00 Completed [facility] Boostrix (Tdap) Boostrix (Tdap) Unknown Completed [facility] Vital Signs Vital Name Observation Time Observation Value Comments S ource Height 2024-11-05 00:00:00 62 [in_i] [facility] BP Systolic 2024-11-05 00:00:00 107 mm[Hg] [facility] BP Diastolic 2024-11-05 00:00:00 66 mm[Hg] [facility] height 2024-10-27 15:15:00 62 [in_i] Commo n [facility] weight 2024-10-27 15:15:00 123.4 [lb_av] Co mmon [facility] temperature 2024-10-27 15:15:00 97.9 [degF] Com mon [facility] bmi 2024-10-27 15:15:00 22.57 kg/m2 Comm on [facility] oximetry 2024-10-27 15:15:00 98 % Commo n [facility] respiratory rate 2024-10-27 15:15:00 16 /min [facility] blood pressure systolic 2024-10-27 15:15:00 122 mm[Hg] Common [facility] blood pressure diastolic 2024-10-27 15:15:00 60 mm[Hg] Common [facility] height 2024-08-21 09:30:00 62 [in_i] Commo n [facility] weight 2024-08-21 09:30:00 121.8 [lb_av] Co mmon [facility] temperature 2024-08-21 09:30:00 97.7 [degF] Com mon [facility] bmi 2024-08-21 09:30:00 22.28 kg/m2 Comm on [facility] oximetry 2024-08-21 09:30:00 99 % Commo n [facility] respiratory rate 2024-08-21 09:30:00 18 /min [facility] blood pressure systolic 2024-08-21 09:30:00 136 mm[Hg] [facility] blood pressure diastolic 2024-08-21 09:30:00 80 mm[Hg] Common [facility] height 2024-07-25 14:30:00 62 [in_i] Commo n [facility] weight 2024-07-25 14:30:00 121 [lb_av] Comm on [facility] temperature 2024-07-25 14:30:00 97.7 [degF] Com [facility] bmi 2024-07-25 14:30:00 22.13 kg/m2 Comm on [facility] oximetry 2024-07-25 14:30:00 96 % Commo n [facility] blood pressure systolic 2024-07-25 14:30:00 98 mm[Hg] Common [facility] blood pressure diastolic 2024-07-25 14:30:00 60 mm[Hg] [facility] height 2024-07-10 14:30:00 62 [in_i] Commo n [facility] weight 2024-07-10 14:30:00 121.6 [lb_av] Co mmon [facility] temperature 2024-07-10 14:30:00 98.0 [degF] Com [facility] bmi 2024-07-10 14:30:00 22.24 kg/m2 Comm on [facility] oximetry 2024-07-10 14:30:00 97 % Commo n [facility] respiratory rate 2024-07-10 14:30:00 16 /min [facility] blood pressure systolic 2024-07-10 14:30:00 110 mm[Hg] Common [facility] blood pressure diastolic 2024-07-10 14:30:00 58 mm[Hg] Common [facility] height 2024-05-30 13:15:00 62 [in_i] Commo n [facility] weight 2024-05-30 13:15:00 116 [lb_av] Comm on [facility] temperature 2024-05-30 13:15:00 97.8 [degF] Com mon [facility] bmi 2024-05-30 13:15:00 21.21 kg/m2 Comm on [facility] oximetry 2024-05-30 13:15:00 97 % Commo n [facility] blood pressure systolic 2024-05-30 13:15:00 112 mm[Hg] [facility] blood pressure diastolic 2024-05-30 13:15:00 60 mm[Hg] [facility] Systolic blood pressure 2024-05-20 06:28:00 118 mm[Hg] [facility] Diastolic blood pressure 2024-05-20 06:28:00 75 mm[Hg] [facility] Heart rate 2024-05-20 06:28:00 63 /min [facility] Body temperature 2024-05-20 06:28:00 37.06 Laura [facility] Respiratory rate 2024-05-20 06:28:00 15 /min [facility] Oxygen saturation in Arterial blood by Pulse oximetry 2024-05-20 06:28:00 100 /min [facility] Body height 2024-05-20 01:33:00 157.5 cm [facility] Body weight 2024-05-20 01:33:00 54.976 kg [facility] BMI 2024-05-20 01:33:00 22.17 kg/m2 [facility] Systolic blood pressure 2023-12-10 23:00:00 118 mm[Hg] [facility] Diastolic blood pressure 2023-12-10 23:00:00 77 mm[Hg] [facility] Heart rate 2023-12-10 23:00:00 70 /min [facility] Body temperature 2023-12-10 23:00:00 37.5 Laura [facility] Respiratory rate 2023-12-10 23:00:00 18 /min [facility] Body height 2023-12-10 23:00:00 157.5 cm [facility] Body weight 2023-12-10 23:00:00 58.968 kg [facility] BMI 2023-12-10 23:00:00 23.78 kg/m2 [facility] Oxygen saturation in Arterial blood by Pulse oximetry 2023-12-10 23:00:00 100 /min [facility] Systolic blood pressure 2023-09-29 03:43:00 119 mm[Hg] [facility] Diastolic blood pressure 2023-09-29 03:43:00 79 mm[Hg] [facility] Heart rate 2023-09-29 03:43:00 72 /min [facility] Body temperature 2023-09-29 03:43:00 37.17 Laura [facility] Respiratory rate 2023-09-29 03:43:00 18 /min [facility] Body height 2023-09-29 03:43:00 157.5 cm [facility] Body weight 2023-09-29 03:43:00 58.968 kg [facility] BMI 2023-09-29 03:43:00 23.78 kg/m2 [facility] Oxygen saturation in Arterial blood by Pulse oximetry 2023-09-29 03:43:00 99 /min [facility] Systolic blood pressure 2023-09-18 18:26:00 118 mm[Hg] [facility] Diastolic blood pressure 2023-09-18 18:26:00 73 mm[Hg] [facility] Heart rate 2023-09-18 18:26:00 71 /min [facility] Body temperature 2023-09-18 18:26:00 36.61 Laura [facility] Respiratory rate 2023-09-18 18:26:00 18 /min [facility] Body height 2023-09-18 18:26:00 157.5 cm [facility] Body weight 2023-09-18 18:26:00 57.244 kg [facility] BMI 2023-09-18 18:26:00 23.08 kg/m2 [facility] Systolic blood pressure 2023-08-06 00:30:00 112 mm[Hg] [facility] Diastolic blood pressure 2023-08-06 00:30:00 67 mm[Hg] [facility] Heart rate 2023-08-06 00:30:00 64 /min [facility] Respiratory rate 2023-08-06 00:30:00 19 /min [facility] Oxygen saturation in Arterial blood by Pulse oximetry 2023-08-06 00:30:00 94 /min [facility] Body temperature 2023-08-05 20:08:00 36.72 Laura [facility] Body height 2023-08-05 20:08:00 157.5 cm [facility] Body weight 2023-08-05 20:08:00 54.432 kg [facility] BMI 2023-08-05 20:08:00 21.95 kg/m2 [facility] Systolic blood pressure 2023-05-25 01:09:00 129 mm[Hg] [facility] Diastolic blood pressure 2023-05-25 01:09:00 80 mm[Hg] [facility] Heart rate 2023-05-25 01:09:00 73 /min [facility] Body temperature 2023-05-25 01:09:00 36.72 Laura [facility] Respiratory rate 2023-05-25 01:09:00 18 /min [facility] Body height 2023-05-25 01:09:00 152.4 cm [facility] Body weight 2023-05-25 01:09:00 58.968 kg [facility] BMI 2023-05-25 01:09:00 25.39 kg/m2 [facility] Oxygen saturation in Arterial blood by Pulse oximetry 2023-05-25 01:09:00 100 /min [facility] Systolic blood pressure 2023-05-12 05:30:00 96 mm[Hg] [facility] Diastolic blood pressure 2023-05-12 05:30:00 66 mm[Hg] [facility] Heart rate 2023-05-12 05:30:00 59 /min [facility] Respiratory rate 2023-05-12 05:30:00 17 /min [facility] Oxygen saturation in Arterial blood by Pulse oximetry 2023-05-12 05:30:00 97 /min [facility] Body temperature 2023-05-12 00:56:00 37.22 Laura [facility] Systolic blood pressure 2023-03-07 02:30:00 135 mm[Hg] [facility] Diastolic blood pressure 2023-03-07 02:30:00 84 mm[Hg] [facility] Heart rate 2023-03-07 02:30:00 61 /min [facility] Body temperature 2023-03-07 02:30:00 36.67 Laura [facility] Respiratory rate 2023-03-07 02:30:00 18 /min [facility] Oxygen saturation in Arterial blood by Pulse oximetry 2023-03-07 02:30:00 97 /min [facility] Body height 2023-03-06 19:55:00 152.4 cm [facility] Body weight 2023-03-06 19:55:00 54.432 kg [facility] BMI 2023-03-06 19:55:00 23.44 kg/m2 [facility] Systolic blood pressure 2023-02-03 19:12:00 109 mm[Hg] [facility] Diastolic blood pressure 2023-02-03 19:12:00 67 mm[Hg] [facility] Heart rate 2023-02-03 19:12:00 66 /min [facility] Respiratory rate 2023-02-03 19:12:00 10 /min [facility] Oxygen saturation in Arterial blood by Pulse oximetry 2023-02-03 19:12:00 99 /min [facility] Body temperature 2023-02-03 17:51:00 37.28 Laura [facility] Body height 2023-02-03 17:51:00 152.4 cm [facility] Body weight 2023-02-03 17:51:00 54.432 kg [facility] BMI 2023-02-03 17:51:00 23.44 kg/m2 [facility] Systolic blood pressure 2022-10-18 02:25:00 99 mm[Hg] [facility] Diastolic blood pressure 2022-10-18 02:25:00 60 mm[Hg] [facility] Heart rate 2022-10-18 02:25:00 58 /min [facility] Respiratory rate 2022-10-18 02:25:00 16 /min [facility] Oxygen saturation in Arterial blood by Pulse oximetry 2022-10-18 02:25:00 96 /min [facility] Body temperature 2022-10-17 22:33:00 37 Laura [facility] Body height 2022-10-17 22:33:00 152.4 cm [facility] Body weight 2022-10-17 22:33:00 58.605 kg [facility] BMI 2022-10-17 22:33:00 25.23 kg/m2 [facility] Systolic blood pressure 2022-08-06 06:45:00 161 mm[Hg] [facility] Diastolic blood pressure 2022-08-06 06:45:00 98 mm[Hg] [facility] Heart rate 2022-08-06 06:45:00 124 /min [facility] Body temperature 2022-08-06 06:45:00 37.22 [facility] Respiratory rate 2022-08-06 06:45:00 16 /min [facility] Body height 2022-08-06 06:45:00 157.5 cm [facility] Body weight 2022-08-06 06:45:00 58.968 kg [facility] BMI 2022-08-06 06:45:00 23.78 kg/m2 [facility] Oxygen saturation in Arterial blood by Pulse oximetry 2022-08-06 06:45:00 99 /min [facility] Systolic blood pressure 2022-07-20 07:06:00 116 mm[Hg] [facility] Diastolic blood pressure 2022-07-20 07:06:00 72 mm[Hg] [facility] Heart rate 2022-07-20 07:06:00 68 /min [facility] Body temperature 2022-07-20 07:06:00 36.78 [facility] Respiratory rate 2022-07-20 07:06:00 16 /min [facility] Body weight 2022-07-20 07:06:00 61.236 kg [facility] BMI 2022-07-20 07:06:00 24.69 kg/m2 [facility] Oxygen saturation in Arterial blood by Pulse oximetry 2022-07-20 07:06:00 99 /min [facility] Systolic blood pressure 2022-05-23 16:16:00 112 mm[Hg] [facility] Diastolic blood pressure 2022-05-23 16:16:00 78 mm[Hg] [facility] Heart rate 2022-05-23 16:16:00 76 /min [facility] Body temperature 2022-05-23 16:16:00 37.11 [facility] Respiratory rate 2022-05-23 16:16:00 20 /min [facility] Body height 2022-05-23 16:16:00 157.5 cm [facility] Body weight 2022-05-23 16:16:00 58.968 kg [facility] BMI 2022-05-23 16:16:00 23.78 kg/m2 [facility] Oxygen saturation in Arterial blood by Pulse oximetry 2022-05-23 16:16:00 98 /min [facility] Systolic blood pressure 2022-03-14 00:39:00 108 mm[Hg] [facility] Diastolic blood pressure 2022-03-14 00:39:00 72 mm[Hg] [facility] Heart rate 2022-03-14 00:39:00 71 /min [facility] Respiratory rate 2022-03-14 00:39:00 21 /min [facility] Oxygen saturation in Arterial blood by Pulse oximetry 2022-03-14 00:39:00 97 /min [facility] Body temperature 2022-03-13 20:20:00 37 [facility] Body height 2022-03-13 20:20:00 165.1 cm [facility] Body weight 2022-03-13 20:20:00 58.968 kg [facility] BMI 2022-03-13 20:20:00 21.63 kg/m2 [facility] Systolic blood pressure 2022-01-22 02:49:00 115 mm[Hg] [facility] Diastolic blood pressure 2022-01-22 02:49:00 77 mm[Hg] [facility] Heart rate 2022-01-22 02:49:00 74 /min [facility] Respiratory rate 2022-01-22 02:49:00 16 /min [facility] Oxygen saturation in Arterial blood by Pulse oximetry 2022-01-22 02:49:00 99 /min [facility] Body temperature 2022-01-22 00:43:00 36.39 [facility] Body weight 2022-01-22 00:43:00 58.968 kg [facility] BMI 2022-01-22 00:43:00 25.39 kg/m2 [facility] Systolic blood pressure 2021-11-01 20:30:00 117 mm[Hg] [facility] Diastolic blood pressure 2021-11-01 20:30:00 66 mm[Hg] [facility] Heart rate 2021-11-01 20:30:00 62 /min [facility] Body [facility] 2021-11-01 20:30:00 36.33 [facility] Respiratory rate 2021-11-01 20:30:00 16 /min [facility] Body height 2021-11-01 20:30:00 152.4 cm [facility] Body weight 2021-11-01 20:30:00 58.514 kg [facility] BMI 2021-11-01 20:30:00 25.19 kg/m2 [facility] height 2020-05-06 11:20:00 60 [in_i] [facility] weight 2020-05-06 11:20:00 120 [lb_av] [facility] temperature 2020-05-06 11:20:00 98.5 [degF] Com mon [facility] bmi 2020-05-06 11:20:00 23.43 kg/m2 [facility] blood pressure systolic 2020-05-06 11:20:00 125 mm[Hg] [facility] blood pressure diastolic 2020-05-06 11:20:00 78 mm[Hg] [facility] height 2018-09-26 11:15:00 60 [in_i] Commo n [facility] weight 2018-09-26 11:15:00 120.2 [lb_av] Co mmon [facility] temperature 2018-09-26 11:15:00 98.7 [degF] Com mon [facility] bmi 2018-09-26 11:15:00 23.47 kg/m2 [facility] oximetry 2018-09-26 11:15:00 100 % Commo [facility] respiratory rate 2018-09-26 11:15:00 17 /min [facility] blood pressure systolic 2018-09-26 11:15:00 113 mm[Hg] [facility] blood pressure diastolic 2018-09-26 11:15:00 56 mm[Hg] [facility] BP Systolic 2024-05-01 15:19:00 110 mm[Hg] [...] [facility] PVR 2024-08-21 00:00:00 [facility] ABDOMEN PELVIS WO CONTRAST 2024-05-20 04:30:49 Kim Callejas [facility] URINALYSIS 2024-05-20 04:23:00 [facility] BASIC METABOLIC PANEL (NA, K, CL, CO2, GLUCOSE, BUN, CREATININE, CA) 2024-05-20 03:28:00 Kim Callejas [facility] XR CHEST 1 VW 2024-05-20 02:05:09 [facility] POCT URINALYSIS 2023-09-18 18:36:00 Isabell Antonio [facility] CT ABDOMEN PELVIS W CONTRAST 2023-08-05 22:17:16 Alesia Lechuga [facility] COMP. METABOLIC PANEL ([id number]) 2023-08-05 20:54:00 Alesia Lechuga [facility] CBC WITH DIFF 2023-08-05 20:54:00 Alesia Lechuga [facility] URINALYSIS 2023-08-05 20:14:00 Alesia Lechuga [facility] CONSENT/REFUSAL FOR DIAGNOSIS AND TREATMENT 2023-08-05 20:02:14 Doctor Unassigned, [place] [facility] URINALYSIS 2023-05-25 01:18:00 Richardson Leon [facility] RAPID INFLUENZA A/B 2023-05-25 01:18:00 Paula Leon [facility] COVID-19 (ID NOW RAPID TESTING) 2023-05-25 01:18:00 Richardson Leon [facility] CONSENT/REFUSAL FOR DIAGNOSIS AND TREATMENT 2023-05-25 00:58:09 Doctor Unassigned, [place] [facility] CT ABDOMEN PELVIS W CONTRAST 2023-05-12 04:27:58 [facility] AC PANEL 21 + LACTIC ACID 2023-05-12 01:50:00 [facility] LIPASE 2023-05-12 01:43:00 Jose Guadalupe Campbell [facility] HEPATIC FUNCTION PANEL (58660) (ALB,T.PRO,BILI T,BU/BC,ALT,AST,ALK PHOS) 2023-05-12 01:43:00 [facility] BASIC METABOLIC PANEL (NA, K, CL, CO2, GLUCOSE, BUN, CREATININE, CA) 2023-05-12 01:43:00 [facility] CBC WITH DIFF 2023-05-12 01:43:00 [facility] URINALYSIS 2023-05-12 01:43:00 Jose Guadalupe Campbell [facility] NOTICE OF PRIVACY PRACTICES 2023-05-12 00:47:32 Doctor Unassigned, [place] [facility] CONSENT/REFUSAL FOR DIAGNOSIS AND TREATMENT 2023-05-12 00:47:02 Doctor Unassigned, [place] [facility] CT HEAD WO CONTRAST 2023-03-06 21:50:00 Brenna Romero [facility] ASSIGNMENT OF BENEFITS 2023-03-06 21:20:15 Docto r Unassigned, [place] [facility] CONSENT/REFUSAL FOR DIAGNOSIS AND TREATMENT 2023-03-06 19:45:09 Doctor Unassigned, [place] [facility] CT ABDOMEN PELVIS W CONTRAST 2023-02-03 18:23:00 Maria Victoria García [facility] LIPASE 2023-02-03 18:02:00 Maria Victoria García [facility] COMP. METABOLIC PANEL ([id number]) 2023-02-03 18:02:00 Maria Victoria García [facility] CBC WITH DIFF 2023-02-03 18:02:00 Maria [facility] URINALYSIS 2023-02-03 18:02:00 Maria Victoria García Un [facility] CONSENT/REFUSAL FOR DIAGNOSIS AND TREATMENT 2023-02-03 17:46:56 Doctor Unassigned, [place] [facility] RAPID STREP SCREEN FOR GROUP A 2022-10-17 23:55:00 Maggie Barrera [facility] RAPID INFLUENZA A/B 2022-10-17 23:55:00 Maggie Barrera e [facility] COVID-19 (ID NOW RAPID TESTING) 2022-10-17 23:55:00 Maggie Barrera [facility] URINALYSIS 2022-10-17 22:49:00 Stephanie Tran [facility] CONSENT/REFUSAL FOR DIAGNOSIS AND TREATMENT 2022-10-17 22:26:18 Doctor Unassigned, [place] [facility] ED SPLINT APPLICATION 2022-08-06 07:55:17 Rosa Lechuga [facility] CONSENT/REFUSAL FOR DIAGNOSIS AND TREATMENT 2022-08-06 06:39:48 Doctor Unassigned, [place] [facility] COMP. METABOLIC PANEL ([id number]) 2022-07-20 06:32:00 Mehreen Sethi [facility] CBC WITH DIFF 2022-07-20 06:32:00 Mehreen Sethi [facility] URINALYSIS 2022-07-20 06:32:00 [facility] RAPID INFLUENZA A/B 2022-07-20 06:32:00 Mehreen Sethi [facility] COVID-19 (ID NOW RAPID TESTING) 2022-07-20 06:32:00 Mehreen Sethi [facility] CONSENT/REFUSAL FOR DIAGNOSIS AND TREATMENT 2022-07-20 05:24:16 Doctor Unassigned, [place] [facility] URINALYSIS 2022-05-23 17:09:00 [facility] CONSENT/REFUSAL FOR DIAGNOSIS AND TREATMENT 2022-05-23 16:02:43 Doctor Unassigned, [place] [facility] CT ABDOMEN PELVIS W CONTRAST 2022-03-13 22:32:00 Arianne Shay [facility] LIPASE 2022-03-13 21:32:00 Arianne Shay [facility] HEPATIC FUNCTION PANEL ([id number]) (ALB,T.PRO,BILI T,BU/BC,ALT,AST,ALK PHOS) 2022-03-13 21:32:00 Arianne Shay [facility] BASIC METABOLIC PANEL (NA, K, CL, CO2, GLUCOSE, BUN, CREATININE, CA) 2022-03-13 21:32:00 Arianne Shay [facility] CBC WITH DIFF 2022-03-13 21:32:00 [facility] 2022-03-13 20:25:00 [facility] CONSENT/REFUSAL FOR DIAGNOSIS AND TREATMENT 2022-03-13 19:50:11 Doctor Unassigned, [place] [facility] CT ABDOMEN PELVIS W CONTRAST 2022-01-22 01:34:54 Brenna Samuel [facility] LIPASE 2022-01-22 01:17:00 Brenna Samuel [facility] COMP. METABOLIC PANEL ([id number]) 2022-01-22 01:17:00 Brenna Samuel [facility] CBC WITH DIFF 2022-01-22 01:17:00 Brenna Samuel [facility] URINALYSIS 2022-01-22 00:50:00 Brenna Samuel [facility] NOTICE OF PRIVACY PRACTICES 2022-01-22 00:38:08 Doctor Unassigned, [place] [facility] CONSENT/REFUSAL FOR DIAGNOSIS AND TREATMENT 2022-01-22 00:36:29 Doctor Unassigned, [place] [facility] PAP SMEAR-LIQUID BASED-CP 2021-11-01 21:11:00 Ronit Santiago [facility] Hysterectomy [facility] Start Date/Time End Date/Time Encounter Type Admission Type Attending Clinicians Care Facility Care Department Encounter ID Source 2024-07-08 13:40:00 Outpatient Zaida Jiang [facility] [id number] [facility] 2024-05-30 14:03:00 [facility] [id number] [facility] 2024-05-29 16:04:00 Outpatient [facility] ST[facility] [id number] [facility] 2021-06-15 12:14:07 Outpatient See, [facility] [id number] [facility] 2021-06-15 11:33:20 Outpatient See, Papito STLC STLC [id number] [facility] 2021-06-15 11:29:10 Outpatient See, Papito ST[facility] [id number] [facility] 2021-06-15 11:27:31 Outpatient See, Papito ST[facility]LC [id number] [facility] 2021-06-15 11:27:13 Outpatient See, [facility] [id number] [facility] 2021-06-15 11:12:57 Outpatient See, [facility] [id number] [facility] 2021-03-22 08:37:29 Emergency [facility] [id number] [facility] 2021-03-21 10:37:33 Emergency [facility] [id number] [facility] 2021-03-20 21:58:58 Emergency [facility] [id number] [facility] 2021-03-20 11:47:40 Emergency [facility] [id number] [facility] 2021-03-20 05:05:20 Emergency [facility] [id number] [facility] 2021-03-19 21:53:05 Emergency [facility] [id number] [facility] 2021-03-19 11:06:33 Emergency [facility] [id number] [facility] 2021-03-18 20:23:30 Emergency [facility] [id number] [facility] 2021-03-18 03:19:07 Emergency [facility] [id number] [facility] 2021-03-17 13:12:53 Emergency [facility] [id number] [facility] 2024-12-26 00:00:00 2024-12-26 00:00:00 (TEL) STLMLC ST[facility]C [id number] [facility] 2024-12-22 00:00:00 2024-12-22 00:00:00 (TEL) STLMLC STLMLC [id number] [facility] 2024-11-05 00:00:00 2024-11-05 00:00:00 ELLIE Torrez: [address], [place] [address], [place] [address] , Ph. [id number]* [id number] [facility] 2024-10-27 00:00:00 2024-10-27 00:00:00 (ESTPT) Establishe d Patient STLMLC STLMLC [id number] [facility] 2024-09-17 15:00:00 2024-09-17 15:00:00 Outpatient R ISABELL ANTONIO [facility] [id number] [facility] 2024-08-21 00:00:00 2024-08-21 00:00:00 OFFICE VISIT NEW PT LEVEL 3 STLMLC STLMLC [id number] [facility] 2024-08-14 00:00:00 2024-08-14 00:00:00 OFFICE VISIT ESTAB PT LEVEL 3 STLMLC STLMLC [id number] [facility] 2024-08-14 00:00:00 2024-08-14 00:00:00 (TEL) STLMLC STLMLC [id number] [facility] 2024-07-28 00:00:00 2024-07-28 00:00:00 (TEL) STLMLC STLMLC [id number] [facility] 2024-07-28 00:00:00 2024-07-28 00:00:00 (TEL) STLMLC STLMLC [id number] [facility] 2024-07-28 00:00:00 2024-07-28 00:00:00 (TEL) STLMLC STLMLC [id number] [facility] 2024-07-25 00:00:00 2024-07-25 00:00:00 OFFICE VISIT ESTAB PT LEVEL 4 STLMLC STLMLC [id number] [facility] 2024-07-12 00:00:00 2024-07-12 00:00:00 (TEL) STLMLC STLMLC [id number] [facility] 2024-07-11 00:00:00 2024-07-11 00:00:00 (TEL) STLMLC STLMLC [id number] [facility] 2024-07-10 00:00:00 2024-07-10 00:00:00 OFFICE VISIT ESTAB PT LEVEL 3 STLMLC STLMLC [id number] [facility] 2024-05-30 00:00:00 2024-05-30 00:00:00 OFFICE VISIT NEW PT LEVEL 4 STLMLC STLMLC [id number] [facility] 2024-05-19 19:36:00 2024-05-20 00:36:00 Emergency LUIS MAN BRENT [facility] ERT [id number] [facility] 2024-05-19 19:36:00 2024-05-20 00:36:00 Emergency Kim Callejas Brent J [facility] 1.2.840.114 350.1.13.10 4.2.7.2.686 [id number] [facility] 2024-05-01 15:17:21 2024-05-01 15:17:21 Outpatient SFA IGNACIO [id number] Torsten Harrison 2024-05-01 00:00:00 2024-05-01 00:00:00 Outpatient Visit [facility] [id number] Torsten Harrison 2024-04-09 09:45:00 2024-04-09 09:45:00 Outpatient R CHAN ROMINA [facility] [id number] [facility] 2023-12-10 18:02:00 2023-12-10 18:42:00 Emergency MT BATISTA ERICCA [facility] ERT [id number] [facility] 2023-12-10 18:02:00 2023-12-10 18:42:00 Emergency Mt Rivera [facility] 1..840.114 350.1.13.10 4.2.7.2.686 [id number] [facility] 2023-11-13 17:43:02 2023-11-13 17:43:02 Outpatient SFA [facility] [id number] Torsten Harrison 2023-11-13 00:00:00 2023-11-13 00:00:00 Outpatient Visit [facility] [id number] Torsten Harrison 2023-10-18 15:40:52 2023-10-18 15:40:52 Outpatient SFA [facility] [id number] Torsten Harrison 2023-10-18 00:00:00 2023-10-18 00:00:00 Outpatient Visit [facility] [id number] Torsten Harrison 2023-09-28 22:49:00 2023-09-28 23:06:00 Emergency STEPHANIE WILL [facility] ERT [id number] [facility] 2023-09-28 22:49:00 2023-09-28 23:06:00 Emergency Stephanie Tran [facility] ..840.114 350.1.13.10 4.2.7.2.686 [id number] [facility] 2023-09-18 13:15:00 2023-09-18 14:05:19 Outpatient R ISABELL ANTONIO [facility] [id number] [facility] 2023-09-18 13:15:00 2023-09-18 14:05:19 Office Visit Isabell Antonio [facility] REGIONAL MEDICAL DIRECTOR [facility]ERNAL & [facility]ILD [facility]ALTH [facility] 1.2.840.114 350.1.13.10 4.2.7.2.686 [id number] [facility] 2023-08-05 15:10:00 2023-08-05 20:05:00 Emergency X ALESIA LECHUGA [facility] ERT [id number] [facility] 2023-08-05 15:10:00 2023-08-05 20:05:00 Emergency Alesia Lechuga [facility] 1.2.840.114 350.1.13.10 4.2.7.2.686 [id number] [facility] 2023-05-24 19:16:00 2023-05-24 20:50:00 Emergency X RICHARDSON LEON [facility] ERT [id number] [facility] 2023-05-24 19:16:00 2023-05-24 20:50:00 Emergency Richardson Leon [facility] 1.2.840.114 350.1.13.10 4.2.7.2.686 [id number] [facility] 2023-05-11 18:59:00 2023-05-12 00:02:00 Emergency X LACI Bejarano [facility] ERT [id number] [facility] 2023-05-11 18:59:00 2023-05-12 00:02:00 Emergency Laci bejarano [facility] 1.2.840.114 350.1.13.10 4.2.7.2.686 [id number] [facility] 2023-05-11 00:00:00 2023-05-11 00:00:00 Orders Only Doctor Unassigned, [facility] 1.2840.114 350.1.13.10 4.2.7.2.686 [id number] [facility] 2023-03-06 14:57:00 2023-03-06 21:46:00 Emergency X BRENNA SAMUEL [facility] ERT [id number] [facility] 2023-03-06 14:57:00 2023-03-06 21:46:00 Emergency AuBrenna pretty [facility] 1.2840.114 350.1.13.10 4.2.7.2.686 [id number] [facility] 2023-02-03 12:53:00 2023-02-03 14:49:00 Emergency X MARIA VICTORIA GARCÍA [facility] ERT [id number] [facility] 2023-02-03 12:53:00 2023-02-03 14:49:00 Emergency Maria Victoria García [facility] 1.2840.114 350.1.13.10 4.2.7.2.686 [id number] [facility] 2022-10-17 17:35:00 2022-10-17 21:37:00 Emergency X Maggie BARRERA [facility] ERT [id number] [facility] 2022-10-17 17:35:00 2022-10-17 21:37:00 Emergency Maggie Barrera [facility] 1.2840.114 350.1.13.10 4.2.7.2.686 [id number] [facility] 2022-10-10 09:10:00 2022-10-10 09:10:00 Outpatient R HOANG ALFARO [facility] [id number] [facility] 2022-08-24 00:00:00 2022-08-24 00:00:00 Patient Secure Msg Doctor Unassigned, [facility] 1.2.840.114 350.1.13.10 4.2.7.2.686 [id number] [facility] 2022-08-06 01:52:00 2022-08-06 03:25:00 Emergency X ALESIA LECHUGA [facility] ERT [id number] [facility] 2022-08-06 01:52:00 2022-08-06 03:25:00 Emergency Alesia Lechuga [facility] 1.840.114 350.1.13.10 4.2.7.2.686 [id number] [facility] 2022-07-19 23:34:00 2022-07-20 02:20:00 Emergency X MEHREEN SETHI [facility] ERT [id number] [facility] 2022-07-19 23:34:00 2022-07-20 02:20:00 Emergency Mehreen Sethi S [facility] 1.840.114 350.1.13.10 4.2.7.2.686 [id number] [facility] 2022-05-23 10:17:00 2022-05-23 12:52:00 Emergency X RICHARDSON [facility] ERT [id number] [facility] 2022-05-23 10:17:00 2022-05-23 12:52:00 Emergency Richardson Leon [facility] 1.84.114 350.1.13.10 4.2.7.2.686 [id number] [facility] 2022-05-23 00:00:00 2022-05-23 00:00:00 Orders Only Doctor Unassigned, [place] 1.114 350.1.13.10 4.2.7.2.686 [id number] [facility] 2022-03-13 15:26:00 2022-03-13 19:56:00 Emergency X FIOR ARIANNE [facility] ERT [id number] [facility] 2022-03-13 15:26:00 2022-03-13 19:56:00 Emergency Arianne Shay S [facility] 1..114 350.1.13.10 4.2.7.2.686 [id number] [facility] 2022-01-30 07:12:34 2022-01-30 23:59:00 Outpatient R RONIT SANTIAGO [facility] [id number] [facility] 2022-01-30 07:12:34 2022-01-30 23:59:00 Hospital Encounter Ronit Santiago [facility] 1.84.114 350.1.13.10 4.2.7.2.686 [id number] [facility] 2022-01-21 19:52:00 2022-01-21 21:51:00 Emergency X ISIDOROBRENNA PRETTY [facility] ERT [id number] [facility] 2022-01-21 19:52:00 2022-01-21 21:51:00 Emergency Aujaime Brenna Roseanne [facility] 1.284.114 350.1.13.10 4.2.7.2.686 [id number] [facility] 2021-11-01 14:30:00 2021-11-01 16:08:12 Office Visit Ronit Santiago [facility] REGIONAL MEDICAL DIRECTOR [facility] 1.2.114 350.1.13.10 4.2.7.2.686 [id number] [facility] 2021-11-01 14:30:00 2021-11-01 16:08:12 Outpatient R RONIT SANTIAGO [facility] [id number] [facility] 2021-11-01 09:30:00 2021-11-01 09:30:00 Outpatient R HERACLIOMAREKCHARLOTTEISABELL [facility] [id number] [facility] 2021-10-26 19:30:00 2021-10-26 23:49:00 Emergency X DAYANNA HANNON [facility] E[facility] [id number] [facility] 2021-10-26 19:30:00 2021-10-26 23:49:00 Emergency Dayanna Hannon [facility] [id number] 350.1.13.10 4.2.7.2.686 [id number] [facility] 2021-05-16 00:00:00 2021-05-16 00:00:00 Patient Secure Msg Doctor Unassigned, [place] [facility] [id number] 350.1.13.10 4.2.7.2.686 [id number] [facility] 2021-05-15 02:02:00 2021-05-15 13:30:00 Emergency X DELL NOBLE [facility] ERT [id number] [facility] 2021-05-15 02:02:00 2021-05-15 13:30:00 Emergency Dell Noble [facility] 1.2.840.114 350.1.13.10 4.2.7.2.686 [id number] [facility] 2021-05-12 01:32:00 2021-05-12 03:32:00 Emergency X DELL NOBLE [facility] ERT [id number] [facility] 2021-05-12 01:32:00 2021-05-12 03:32:00 Emergency Dell Noble [facility] 1.2.840.114 350.1.13.10 4.2.7.2.686 [id number] 084 [id number] [facility] 2021-05-12 00:00:00 2021-05-12 00:00:00 Orders Only Doctor Unassigned, [facility] 1.2.840.114 350.1.13.10 4.2.7.2.686 [id number] [id number] [facility] 2021-04-26 16:40:00 2021-04-26 18:47:00 Emergency X BOAZ JACOBSONANNE [facility] [id number] [facility] 2021-04-26 16:40:00 2021-04-26 18:47:00 Emergency Jacobson Daniel [facility] 1.2.840.114 350.1.13.10 4.2.7.2.686 [id number] [id number] [facility] 2021-03-10 12:55:00 2021-03-12 18:40:00 Emergency Jennifer Manzano Peter [facility] ([facility]) 1.2.840.114 350.1.13.10 4.2.7.2.686 [id number] [facility] 2020-12-20 00:00:00 2020-12-20 00:00:00 Outpatient [facility] [id number] [facility] 2020-12-12 21:14:00 2020-12-13 01:55:[address] [facility] 1.2.840.114 350.1.13.10 4.2.7.2.686 [id number] [id number] [facility] 2020-10-15 11:58:00 2020-10-15 15:51:00 Emergency RICHARDSON CASTILLO [facility] ERT [id number] [facility] 2020-10-15 11:58:00 2020-10-15 15:51:00 Emergency Richardson Leon [facility] 1.2.840.114 350.1.13.10 4.2.7.2.686 [id number] 014 [id number] [facility] 2020-09-01 13:00:00 2020-09-01 13:00:00 Outpatient R [facility] [id number] [facility] 2020-08-27 09:15:00 2020-08-27 13:06:[address] [facility] 1.2.840.114 350.1.13.10 4.2.7.2.686 [id number] 084 [id number] [facility] 2020-08-27 00:00:00 2020-08-27 00:00:00 Orders Only Doctor Unassigned, [facility] 1.2.840.114 350.1.13.10 4.2.7.2.686 [id number] [id number] [facility] 2020-07-30 00:00:00 2020-07-30 00:00:00 Telephone Glenis Becerra [facility] 1.2.840.114 350.1.13.10 4.2.7.2.686 [id number] 019 [id number] [facility] 2020-07-28 20:54:00 2020-07-29 00:37:00 Emergency Maggie Barrera Doreen [facility] 1.2.840.114 350.1.13.10 4.2.7.2.686 [id number] 084 [id number] [facility] 2020-07-29 00:00:00 2020-07-29 00:00:00 Patient Secure Msg Doctor Unassigned, [facility] 1.2.840.114 350.1.13.10 4.2.7.2.686 [id number] [facility] 2020-06-24 14:22:00 2020-06-24 16:17:[address] Mehreen Darryl [facility] 1.2.840.114 350.1.13.10 4.2.7.2.686 [id number] 084 [id number] [facility] 2020-06-24 00:00:00 2020-06-24 00:00:00 Orders Only Doctor Unassigned, [facility] 1.2840.114 350.1.13.10 4.2.7.2.686 [id number] [facility] 2020-06-23 00:00:00 2020-06-23 00:00:00 (TEL) STLMLC STLMLC [id number] [facility] 2020-05-25 00:00:00 2020-05-25 00:00:00 Outpatient CLIVE DOTY [facility] [id number] [facility] 2020-05-06 00:00:00 2020-05-06 00:00:00 OFFICE VISIT ESTAB PT LEVEL 2 STLMLC STLMLC [id number] [facility] 2020-05-05 00:00:00 2020-05-05 00:00:00 (TEL) STLMLC STLMLC [id number] [facility] 2020-05-03 12:03:00 2020-05-03 16:07:00 Emergency Atif Shearer [facility] ([facility]) 1.840.114 350.1.13.10 4.2.7.2.686 [id number] [facility] 2020-04-05 00:00:00 2020-04-05 00:00:00 Telephone Clive Tran [facility] REGIONAL MEDICAL DIRECTOR [facility] 1.2840.114 350.1.13.10 4.2.7.2.686 [id number] [facility] 2020-04-01 14:01:09 2020-04-01 15:15:07 Office Visit Clive Tran [facility] REGIONAL MEDICAL DIRECTOR [facility] 1.2.840.114 350.1.13.10 4.2.7.2.686 [id number] [facility] 2020-04-01 13:30:00 2020-04-01 13:30:00 Outpatient R CLIVE TRAN [facility] [id number] [facility] 2020-04-01 00:00:00 2020-04-01 00:00:00 Orders Only Doctor Unassigned, [place] [facility] 1.2.840.114 350.1.13.10 4.2.7.2.686 [id number] [id number] [facility] 2020-02-20 00:00:00 2020-02-20 00:00:00 Letter (Out) Delia Perkins [facility] 1.2.840.114 350.1.13.10 4.2.7.2.686 [id number] [id number] [facility] 2020-02-18 20:02:00 2020-02-18 21:40:[address] [facility] 1.2.840.114 350.1.13.10 4.2.7.2.686 [id number] 084 [id number] [facility] 2020-02-18 00:00:00 2020-02-18 00:00:00 Orders Only Doctor Unassigned, [place] [facility] 1.2.840.114 350.1.13.10 4.2.7.2.686 [id number] [id number] [facility] 2019-11-18 15:13:00 2019-11-18 15:13:00 Outpatient [facility] [place] [facility] Medicine [id number] [facility] 2019-11-18 00:00:00 2019-11-18 00:00:00 Telephone Tessa Matos [facility] 1.2.840.114 350.1.13.10 4.2.7.2.686 [id number] [id number] [facility] 2019-11-16 19:58:07 2019-11-16 22:05:[address] [facility] 1.2.840.114 350.1.13.10 4.2.7.2.686 [id number] [id number] [facility] 2019-11-14 14:20:00 2019-11-14 14:20:[address] [facility] [place] [facility] [id number] [facility] 2019-11-14 11:44:00 2019-11-14 11:44:00 Outpatient [facility] [place] [facility] [id number] [facility] 2019-07-29 11:15:00 2019-07-29 11:15:00 [place] [facility] [address] [facility] [place] [facility] [id number] [facility] 2019-07-29 08:43:00 2019-07-29 08:43:00 [facility] [place] [facility] [id number] [facility] 2019-07-27 22:56:42 2019-07-28 01:19:[address] [facility] 1.2.840.114 350.1.13.10 4.2.7.2.686 [id number] [id number] [facility] 2019-03-20 15:45:00 2019-03-20 15:45:00 Out[facility] [address] [facility] [id number] [facility] 2018-09-26 00:00:00 2018-09-26 00:00:00 OFFICE VISIT ESTAB PT LEVEL 3 [facility] [place] [facility] [id number] [facility] 2018-09-03 15:39:00 2018-09-03 15:39:00 [facility] [place] [facility] [id number] [facility] 2018-09-03 12:09:00 2018-09-03 12:09:00 [facility] [place] [facility] [id number] [facility] 2018-09-03 09:49:00 2018-09-03 09:49:00 [facility] [place] [facility] [id number] [facility] 2018 16:01:00 2018 16:01:00 [place] [place] [facility] [id number] [facility] 2018-08-21 15:30:00 2018-08-21 15:30:00 [facility] [place] [facility] [id number] [facility] 2018-08-21 11:30:00 2018-08-21 11:30:00 [address] [facility] [place] [facility] [id number] [facility] 2018-07-24 08:46:00 2018-07-24 08:46:[address] [facility] [place] [facility] [id number] [facility] 2018-07-17 13:15:00 2018-07-17 13:15:00 [address] [facility] [place] [facility] [id number] [facility] 2018-07-15 11:15:00 2018-07-15 11:15:00 [facility] [place] [facility] [id number] [facility] 2018-06-19 08:15:00 2018-06-19 08:15:00 [facility] [place] [facility] [id number] [facility] 2018-04-30 13:30:00 2018-04-30 13:30:00 Out[facility] [address] [facility] Medicine [id number] [facility] Results Test Description Test Time Test Comments Results Result Comments Source CYTOLOGY, URINE W/REFL FISH 00:00:00 CLINICAL INFORMATIONPATHOLOGISTREPORT NOTESSCREENER URINE, SPECIMEN A 00:00:00 A COMMENTA DIAGNOSISA GROSS DESCRIPTIONA SOURCE CT Abdomen pelvis wo [id number] 05:25:19Exam: CT Abdomen and Pelvis without contrast, [...] the anterior abdominal wall.Bones: No acute osseous abnormality.[facility] [id number] 02:47:57 EXAM: XR CHEST 1 VW COMPARISON: Chest CT dated 03/10/2021. HISTORY: back pain ? FINDINGS: No focal consolidation is identified. Diffuse interstitial prominencenoted. No pleural effusion or pneumothorax is seen. The cardiomediastinalsilhouette is unchanged.No acute osseous abnormalities. [facility] W Specific [id number] 18:37:00* Test Item Value Reference Range Interpretation [...] POCT U APPEAR (test code = 3267) [facility] W Specific [id number] 18:37:00* Test Item Value Reference Range Interpretation [...] POCT U APPEAR (test code = 3267) [facility] PEL[facility] W [id number] 23:19:49CT ABDOMEN PELVIS W CONTRAST Indication: LLQ [...] theleft iliac bone most [facility] METABOLIC PANEL (09451)2023-08-05 21:50:58* Test Item Value Reference Range Interpretation Comme nts NA (test code = 8616207692) 138 mmol/L 135-145 K (test code = 6027665150) 3.7 mmol/L 3.5-5.0 CL (test code = 4779265177) 107 mmol/L 98-108 CO2 TOTAL (test code = 2472250764) 25 mmol/L 23-31 AGAP (test code = 3758353063) 6 2-16 BUN (test code = 2158270121) 14 mg/dL 7-23 GLUCOSE (test code = 0496250582) 162 mg/dL 70-110 H CREATININE (test code = 2160-0) 0.49 mg/dL 0.50-1.04 L TOTAL BILI (test code = 9234869427) 0.4 mg/dL 0.1-1.1 CALCIUM (test code = 3252453181) 8.8 mg/dL 8.6-10.6 T PROTEIN (test code = 7560132156) 7.0 g/dL 6.3-8.2 ALBUMIN (test code = 9584933114) 4.0 g/dL 3.5-5.0 ALK PHOS (test code = 9575462360) 80 U/L 34-122 ALTv (test code = 1742-6) 14 U/L 5-35 AST(SGOT) (test code = 5525542484) 24 U/L 13-40 eGFR (test code = 96696-0) 114.3 mL/min/1.73m2 CKD-EPI eGFR (2020). Assuming creatinine has been stable day-to-day for at least three months, the eGFR indicates Category G1 (>= 90 mL/min/1.73 m2) Lab Interpretation (test code = 62525-2) Abnormal [facility] WITH [id number] 21:44:15* Test Item Value Reference Range Interpretation [...] 33.6 g/dL 31.6-35.1 RDW-SD (test code = 97930-2) 44.0 fL 39.0-49.9 RDW-CV (test code = 788-0) 13.0 % 12.0-15.5 PLT (test code = 777-3) 337 166-358 MPV (test code = 11517-4) 9.3 fL 9.5-12.9 L NRBC/100 WBC (test code = 0185445066) 0.0 0.0-10.0 NRBC x10^3 (test code = 3341100246) See_Comment [Automated [employer]] The system which generated this result transmitted reference range: 10*3/?L. The reference range was not used to interpret this result as normal/abnormal. GRAN MAT (NEUT) % (test code = 770-8) 53.6 % IMM GRAN % (test code = 9722827754) 0.40 % LYMPH % (test code = 736-9) 39.1 % MONO % (test code = 5905-5) 4.2 % EOS % (test code = 713-8) 2.5 % BASO % (test code = 706-2) 0.2 % GRAN MAT x10^3(ANC) (test code = 9992827369) 5.34 10*3/uL 1.88-7.09 IMM GRAN x10^3 (test code = 5799553043) 0.04 10*3/uL 0.00-0.06 LYMPH x10^3 (test code = 731-0) 3.89 10*3/uL 1.32-3.29 H MONO x10^3 (test code = 742-7) 0.42 10*3/uL 0.33-0.92 EOS x10^3 (test code = 711-2) 0.25 10*3/uL 0.03-0.39 BASO x10^3 (test code = 704-7) 0.01-0.07 Lab Interpretation (test code = 68084-5) Abnormal [facility] W [id number] 04:47:59Provider: JOSE GUADALUPE CAMPBELL EXAM: CT ABDOMEN [...] wall: Within normal limits.Bones: No acute bony abnormality.[facility] WITH [id number] 03:09:59* Test Item Value Reference Range Interpretation [...] 34.6 g/dL 31.6-35.1 RDW-SD (test code = 48254-7) 42.8 fL 39.0-49.9 RDW-CV (test code = 788-0) 12.9 % 12.0-15.5 PLT (test code = 777-3) 345 See_Comment [Automated messa ge] The system which generated this result transmitted reference range: 166 - 358 10*3/?L. The reference range was not used to interpret this result as normal/abnormal. MPV (test code = 01657-8) 8.9 fL 9.5-12.9 L NRBC/100 WBC (test code = 1257894461) 0.0 See_Comment [Automated [employer] ssage] The system which generated this result transmitted reference range: 0.0 - 10.0 /100 WBCs. The reference range was not used to interpret this result as normal/abnormal. NRBC x10^3 (test code = 1980656967) See_Comment [Automated messa ge] The system which generated this result transmitted reference range: 10*3/?L. The reference range was not used to interpret this result as normal/abnormal. GRAN MAT (NEUT) % (test code = 770-8) 45.5 % IMM GRAN % (test code = 6268995816) 0.20 % LYMPH % (test code = 736-9) 44.5 % MONO % (test code = 5905-5) 6.8 % EOS % (test code = 713-8) 2.9 % BASO % (test code = 706-2) 0.1 % GRAN MAT x10^3(ANC) (test code = 0275656075) 4.74 10*3/uL 1.88-7.09 IMM GRAN x10^3 (test code = 7849312762) 0.00-0.06 LYMPH x10^3 (test code = 731-0) [...] as normal/abnormal. REACT LYMPHS (test code = 8866537816) Rare Lab Interpretation (test code = 34304-0) Abnormal [facility] METABOLIC PANEL (NA, K, CL, CO2, GLUCOSE, BUN, CREATININE, CA)2023-05-12 02:35:14* Test Item Value Reference Range Interpretation Comme nts NA (test code = 2628357672) 136 mmol/L 135-145 K (test code = 3124934416) 3.6 mmol/L 3.5-5.0 CL (test code = 0800757329) 103 mmol/L 98-108 CO2 TOTAL (test code = 2256427177) 26 mmol/L 23-31 AGAP (test code = 9368315630) 7 2-16 BUN (test code = 1288279114) 17 mg/dL 7-23 GLUCOSE (test code = 0619505659) 113 mg/dL 70-110 H CREATININE (test code = 3640223994) 0.65 mg/dL 0.50-1.04 CALCIUM (test code = 8033082425) 9.2 mg/dL 8.6-10.6 eGFR (test code = 18970-8) 106.7 mL/min/1.73m2 CKD-EPI eGFR (2020). Assuming creatinine has been stable day-to-day for at least three months, the eGFR indicates Category G1 (>= 90 mL/min/1.73 m2) Lab Interpretation (test code = 75796-1) [facility]normal [facility] (79376) (ALB,T.PRO,BILI T,BU/BC,ALT,AST,ALK PHOS)2023-05-12 02:35:14* Test Item Value Reference Range Interpretation Comme nts TOTAL BILI (test code = 3616117227) 0.4 mg/dL 0.1-1.1 BILI UNCON (test code = 9603146615) 0.2 mg/dL 0.1-1.1 BILI CONJ (test code = 1909498837) 0.0 mg/dL 0.0-0.3 T PROTEIN (test code = 2513516272) 7.5 g/dL 6.3-8.2 ALBUMIN (test code = 1256834663) 4.5 g/dL 3.5-5.0 ALK PHOS (test code = 7444263943) 83 U/L 34-122 ALTv (test code = 1742-6) 17 U/L 5-35 AST(SGOT) (test code = 4323468263) 25 U/L 13-40 Lab Interpretation (test cod e = 18016-1) Normal [facility]23-[facility]-23 02:35:14* Test Item Value Reference Range Interpretation Comme nts LIPASE (test code = 4957780012) 151 U/L 0-220 Lab Interpretation (test cod e = 56212-9) Normal [facility] MET[facility]OLIC PANEL (01648)2023-02-03 18:35:59* Test Item Value Reference Range Interpretation Comme nts NA (test code = 6818870910) 140 mmol/L 135-145 K (test code = 2290958402) 4.0 mmol/L 3.5-5.0 CL (test code = 1382804415) 108 mmol/L 98-108 CO2 TOTAL (test code = 3265765482) 24 mmol/L 23-31 AGAP (test code = 2752445038) 8 2-16 BUN (test code = 4751652332) 14 mg/dL 7-23 GLUCOSE (test code = 5080898748) 98 mg/dL 70-110 CREATININE (test code = 2416040872) 0.70 mg/dL 0.50-1.04 TOTAL BILI (test code = 3181190890) 0.2 mg/dL 0.1-1.1 CALCIUM (test code = 6254855099) 9.1 mg/dL 8.6-10.6 T PROTEIN (test code = 4551629273) 7.0 g/dL 6.3-8.2 ALBUMIN (test code = 0871747573) 4.3 g/dL 3.5-5.0 ALK PHOS (test code = 1933525045) 80 U/L 34-122 ALTv (test code = 1742-6) 14 U/L 5-35 AST(SGOT) (test code = 0943286772) 22 U/L 13-40 eGFR (test code = 4196272044) 88.2 mL/min/1.73m2 LAVONNE (test code = LAVONNE) [...] or urine or abnormalities in imaging tests). [facility] 18:35:39* Test Item Value Reference Range Interpretation Comme nts LIPASE (test code = 1340638684) 87 U/L 0-220 Lab Interpretation (test cod e = 39567-6) Normal [facility] WITH [id number] 18:24:40* Test Item Value Reference Range Interpretation Comme nts WBC (test code = 6690-2) 9.24 See_Comment [Automated [employer]] The system which generated this result transmitted reference range: 4.30 - 11.10 10*3/?L. The reference range was not used to interpret this result as normal/abnormal. RBC (test code = 789-8) 4.11 See_Comment [Automated [employer]] The system which generated this result transmitted [...] 34.5 g/dL 31.6-35.1 RDW-SD (test code = 13962-9) 42.5 fL 39.0-49.9 RDW-CV (test code = 788-0) 12.8 % 12.0-15.5 PLT (test code = 777-3) 345 See_Comment [Automated [employer]] The system which generated this result transmitted reference range: 166 - 358 10*3/?L. The reference range was not used to interpret this result as normal/abnormal. MPV (test code = 16278-2) 9.1 fL 9.5-12.9 L NRBC/100 WBC (test code = 3836247669) 0.0 See_Comment [Automated me ssage] The system which generated this result transmitted reference range: 0.0 - 10.0 /100 WBCs. The reference range was not used to interpret this result as normal/abnormal. NRBC x10^3 (test code = 0332975895) See_Comment [Automated messa ge] The system which generated this result transmitted reference range: 10*3/?L. The reference range was not used to interpret this result as normal/abnormal. GRAN MAT (NEUT) % (test code = 770-8) 51.4 % IMM GRAN % (test code = 6659253207) 0.20 % LYMPH % (test code = 736-9) 40.8 % MONO % (test code = 5905-5) 5.3 % EOS % (test code = 713-8) 2.2 % BASO % (test code = 706-2) 0.1 % GRAN MAT x10^3(ANC) (test code = 7378448254) 4.75 10*3/uL 1.88-7.09 IMM GRAN x10^3 (test code = 7966685070) 0.00-0.06 LYMPH x10^3 (test code = 731-0) 3.77 10*3/uL 1.32-3.29 H MONO x10^3 (test code = 742-7) 0.49 10*3/uL 0.33-0.92 EOS x10^3 (test code = 711-2) 0.20 10*3/uL 0.03-0.39 BASO x10^3 (test code = 704-7) 0.01-0.07 Lab Interpretation (test code = 59273-3) Abnormal [facility] WITH [id number] 07:21:41* Test Item Value Reference Range Interpretation [...] g/dL 31.6-35.1 H RDW-SD (test code = 66203-5) 41.1 fL 39.0-49.9 RDW-CV (test code = 788-0) 12.6 % 12.0-15.5 PLT (test code = 777-3) 315 See_Comment [Automated messa ge] The system which generated this result transmitted reference range: 166 - 358 10*3/?L. The reference range was not used to interpret this result as normal/abnormal. MPV (test code = 40416-7) 8.7 fL 9.5-12.9 L NRBC/100 WBC (test code = 3816541184) 0.0 See_Comment [Automated [employer] ssage] The system which generated this result transmitted reference range: 0.0 - 10.0 /100 WBCs. The reference range was not used to interpret this result as normal/abnormal. NRBC x10^3 (test code = 9088202619) See_Comment [Automated messa ge] The system which generated this result transmitted reference range: 10*3/?L. The reference range was not used to interpret this result as normal/abnormal. SEG % (test code = 65478-9) 45 % 33-76 LYMPH % (test code = 49127-8) 48 % 14-54 EOS % (test code = 10528-0) 7 % 0-3 H ANC (test code = 753-4) 4.43 10*3/uL 1.88-7.09 Lab Interpretation (test code = 48354-2) [facility]normal [facility] (37659)2022-07-20 07:05:10* Test Item Value Reference Range Interpretation Comme nts NA (test code = 6011719644) 139 mmol/L 135-145 K (test code = 8184510585) 4.0 mmol/L 3.5-5.0 Slight hemolysis CL (test code = 5775534619) 105 mmol/L 98-108 CO2 TOTAL (test code = 4890922213) 25 mmol/L 23-31 AGAP (test code = 8939138554) 9 2-16 BUN (test code = 2672260109) 19 mg/dL 7-23 Slight hemolysis GLUCOSE (test code = 2610155417) 96 mg/dL 70-110 CREATININE (test code = 6913830685) 0.59 mg/dL 0.50-1.04 TOTAL BILI (test code = 3931370130) 0.5 mg/dL 0.1-1.1 CALCIUM (test code = 0346535354) 9.2 mg/dL 8.6-10.6 T PROTEIN (test code = 7415441326) 6.9 g/dL 6.3-8.2 ALBUMIN (test code = 5914912890) 4.4 g/dL 3.5-5.0 ALK PHOS (test code = 8190471782) 53 U/L 34-122 Slight hemoly sis ALTv (test code = 1742-6) 15 U/L 5-35 AST(SGOT) (test code = 9878449567) 23 U/L 13-40 Slight hemoly sis eGFR (test code = 5824305646) 107.9 mL/min/1.73m2 LAVONNE (test code = LAVONNE) [...] or urine or abnormalities in imaging tests). [facility] (74285) (ALB,T.PRO,BILI T,BU/BC,ALT,AST,ALK PHOS)2022-03-13 22:31:03* Test Item Value Reference Range Interpretation Comme nts TOTAL BILI (test code = 3029583902) 0.4 mg/dL 0.1-1.1 BILI UNCON (test code = 6874699121) 0.1 mg/dL 0.1-1.1 BILI CONJ (test code = 5108959047) 0.0 mg/dL 0-0.3 T PROTEIN (test code = 4470927971) 7.0 g/dL 6.3-8.2 ALBUMIN (test code = 4423982456) 4.5 g/dL 3.5-5 ALK PHOS (test code = 9469683835) 60 U/L 34-122 ALTv (test code = 1742-6) 16 U/L 5-35 AST(SGOT) (test code = 5009360524) 25 U/L 13-40 Lab Interpretation (test cod e = 59036-4) [facility]NA, K, CL, CO2, GLUCOSE, BUN, CREATININE, CA)2022-03-13 22:30:43* Test Item Value Reference Range Interpretation Comme nts NA (test code = 8200959140) 139 mmol/L 135-145 K (test code = 7879834992) 4.0 mmol/L 3.5-5 CL (test code = 5786024332) 104 mmol/L 98-108 CO2 TOTAL (test code = 9694601987) 26 mmol/L 23-31 AGAP (test code = 5041757267) 2-16 BUN (test code = 2599439455) 14 mg/dL 7-23 GLUCOSE (test code = 7516682614) 93 mg/dL 70-110 CREATININE (test code = 7745005615) 0.88 mg/dL 0.5-1.04 CALCIUM (test code = 5323799296) 9.0 mg/dL 8.6-10.6 eGFR (test code = 8777963178) mL/min/1.73m2 LAVONNE (test code = LAVONNE) Association [...] or urine or abnormalities in imaging tests). [facility] 22:30:43* Test Item Value Reference Range Interpretation Comme nts LIPASE (test code = 9662248305) 200 U/L 0-220 Lab Interpretation (test cod e = 43697-0) [facility] [id number] 21:59:40* Test Item Value Reference Range Interpretation Comme nts WBC (test code = 6690-2) See_Comment H [Automated [facility]] The system which generated this result transmitted reference range: 4.30 - 11.10 10*3/?L. The reference range was not used to interpret this result as normal/abnormal. RBC (test code = 789-8) See_Comment L [Automated [facility]] The system which generated this result [...] 35.0 g/dL 31.6-35.1 RDW-SD (test code = 43463-9) 42.3 fL 39-49.9 RDW-CV (test code = 788-0) 12.8 % 12-15.5 PLT (test code = 777-3) See_Comment [Automated [employer]] The system which generated this result transmitted reference range: 166 - 358 10*3/?L. The reference range was not used to interpret this result as normal/abnormal. MPV (test code = 88861-7) 8.9 fL 9.5-12.9 L NRBC/100 WBC (test code = 1939984112) See_Comment [Automated [employer] ssage] The system which generated this result transmitted reference range: 0.0 - 10.0 /100 WBCs. The reference range was not used to interpret this result as normal/abnormal. NRBC x10^3 (test code = 4702260102) See_Comment [Automated messa ge] The system which generated this result transmitted reference range: 10*3/?L. The reference range was not used to interpret this result as normal/abnormal. GRAN MAT (NEUT) % (test code = 770-8) 60.3 % IMM GRAN % (test code = 8248844275) 0.30 % LYMPH % (test code = 736-9) 29.6 % MONO % (test code = 5905-5) 6.6 % EOS % (test code = 713-8) 3.0 % BASO % (test code = 706-2) 0.2 % GRAN MAT x10^3(ANC) (test code = 1269324045) 7.16 10*3/uL 1.88-7.09 H IMM GRAN x10^3 (test code = 0819543907) 0.04 10*3/uL 0-0.06 LYMPH x10^3 (test code = 731-0) 3.51 10*3/uL 1.32-3.29 H MONO x10^3 (test code = 742-7) 0.78 10*3/uL 0.33-0.92 EOS x10^3 (test code = 711-2) 0.35 10*3/uL 0.03-0.39 BASO x10^3 (test code = 704-7) 0.01-0.07 Lab Interpretation (test code = 31721-4) [facility] Test Item Value Reference Range Interpretation Comme nts LIPASE (test code = 0787579020) 618 U/L 0-220 H Lab Interpretation (test cod e = 14768-6) [facility] (25643)2022-01-22 01:55:34* Test Item Value Reference Range Interpretation Comme nts NA (test code = 7305050321) 140 mmol/L 135-145 K (test code = 4768993924) 4.4 mmol/L 3.5-5 CL (test code = 5890880415) 109 mmol/L 98-108 H CO2 TOTAL (test code = 1246957540) 25 mmol/L 23-31 AGAP (test code = 5936522069) 2-16 BUN (test code = 7330013064) 20 mg/dL 7-23 GLUCOSE (test code = 7876280244) 98 mg/dL 70-110 CREATININE (test code = 8489831724) 0.73 mg/dL 0.5-1.04 TOTAL BILI (test code = 8113558926) 0.2 mg/dL 0.1-1.1 CALCIUM (test code = 4393629337) 9.1 mg/dL 8.6-10.6 T PROTEIN (test code = 3840328542) 6.9 g/dL 6.3-8.2 ALBUMIN (test code = 1435177115) 4.6 g/dL 3.5-5 ALK PHOS (test code = 0146530835) 71 U/L 34-122 ALTv (test code = 1742-6) 16 U/L 5-35 AST(SGOT) (test code = 6120722039) 23 U/L 13-40 eGFR (test code = 2200269112) mL/min/1.73m2 LAVONNE (test code = LAVONNE) Association [...] imaging tests). Lab Interpretation (test code = 08990-2) Abnormal [facility] WITH YLMO4061-12-26 01:48:36* Test Item Value Reference Range Interpretation Comme nts WBC (test code = 6690-2) See_Comment H [Automated [employer]] The system which generated this result transmitted reference range: 4.30 - 11.10 10*3/?L. The reference range was not used to interpret this result as normal/abnormal. RBC (test code = 789-8) See_Comment L [Automated [employer]] The system which generated this result [...] g/dL 31.6-35.1 H RDW-SD (test code = 62007-5) 43.0 fL 39-49.9 RDW-CV (test code = 788-0) 13.1 % 12-15.5 PLT (test code = 777-3) See_Comment [Automated [employer]] The system which generated this result transmitted reference range: 166 - 358 10*3/?L. The reference range was not used to interpret this result as normal/abnormal. MPV (test code = 93197-7) 10.1 fL 9.5-12.9 NRBC/100 WBC (test code = 2093839588) See_Comment [Automated [employer] ssage] The system which generated this result transmitted reference range: 0.0 - 10.0 /100 WBCs. The reference range was not used to interpret this result as normal/abnormal. NRBC x10^3 (test code = 4879977324) See_Comment [Automated messa ge] The system which generated this result transmitted reference range: 10*3/?L. The reference range was not used to interpret this result as normal/abnormal. GRAN MAT (NEUT) % (test code = 770-8) 52.3 % IMM GRAN % (test code = 1599169757) 0.30 % LYMPH % (test code = 736-9) 39.4 % MONO % (test code = 5905-5) 5.5 % EOS % (test code = 713-8) 2.3 % BASO % (test code = 706-2) 0.2 % GRAN MAT x10^3(ANC) (test code = 0342236812) 6.05 10*3/uL 1.88-7.09 IMM GRAN x10^3 (test code = 5703628466) 0.03 10*3/uL 0-0.06 LYMPH x10^3 (test code = 731-0) 4.55 10*3/uL 1.32-3.29 H MONO x10^3 (test code = 742-7) 0.63 10*3/uL 0.33-0.92 EOS x10^3 (test code = 711-2) 0.27 10*3/uL 0.03-0.39 BASO x10^3 (test code = 704-7) 0.01-0.07 Lab Interpretation (test code = 63557-5) Abnormal [facility] Notes Date/Time Note Provider Source 2024-05-20 00:34:16 Pt given printed and verbal discharge instructions regarding back pain, encouraged hydration, Prescriptions provided Discussed [place] side affects and to avoid driving/operating machinery/or [...] steady gait, in no apparent distress, with TE ATTORNEY Jaylen Hook RN [facility] 2024-05-19 19:29:54 Pt arrives to ED ambulatory c/o bilateral flank pain that has persisted ever since she was discharged from [facility] last week due to dehydration and kidney problems. States that when she was discharged they had told her she had fluid in her lungs and now her upper back is hurting as well. Rates pain 10 Pt currently taking ibuprofen 800mg, tizanidine 2mg, cefpodoxime pro 100mg, and promethazine 25mg. TE ATTORNEY Prisca Kirkland RN [facility] 2024-05-19 19:25:00 [facility] Emergency Department Note Patient Name: Stephania San Date of : 1970 53 year old female Treatment Room: [facility] Primary Care Physician: Papito See Patient Escorted by: Family [5] Mode of Arrival: Personal means [1] EMS Treatment Prior to ED Arrival: ASSET PROTECTION LEAD treatment: None Travel and Exposure Screening: Symptoms [...] after being discharged 1 week ago from [facility] for nephrotoxicity after cipro for ear infection. [...] Electronically signed by: Kim Callejas DO 05/19/24 2331 [facility] 2024-05-19 19:25:00 Patient seen, examined and d/w Dr. Juarez, shift change, pending CTAP--negative acute findings. Exam c/w musculoskeletal lower back pain/strain. Agree with home, hydration, symptomatic care, ER warnings, close f/u PCP. Luis Pearson MD 05/20/24 0004 [facility] 18:41:08 Pt given printed and verbal discharge [...] in no apparent distress. Dee Dee Zavala [facility] Hospital[facility]epemi8865-22-13 17:58:49 Patient states "from September until now I have had an ear infection in both ears." Patient states that she has been treated multiple times for ear infections and was referred to a specialist. Patient unable to get an appointment until December. Currently has bilateral ear pain. Bl[facility]ne [facility]7835[facility]88-38 00:00:00 Torsten Kumar [facility]2024-05-30 00:00:00 Torsten Kumar [facility]2024-05-10 22:57:26 Pt given printed and verbal [...] with steady gait, in no apparent distress. [place] 426604-05-10 22:42:38 Bilateral ear pain, left worse than right. Throat pain. Stated 3 days ago. Gilda Covington [place] 878044-05-10 22:26:00 [facility] Emergency Department Note Patient Name: Stephania San Date of : 1970 53 year old female Treatment Room: Room/bed info not found Primary Care Physician: Papito See Patient Escorted by: Self [9] Mode of Arrival: Personal means [1] EMS Treatment Prior to ED Arrival: ASSET PROTECTION LEAD treatment: None Travel and Exposure Screening: Symptoms [...] for agitation. Physical Exam: ED Triage Vitals [09/28/233] Weight 59 kg (130 lb) Actual or [...] -- ED COURSE Diagnosis/Impression as of 09/28/23 225 Acute otitis media, unspecified otitis media type [...] Electronically signed by: Stephanie Tran DO 09/28/230 [facility]4834[facility]57[facility]56 20:04:20 Pt discharged with diagnosis of dysuria, flank pain, LLQ pain, acute otitis externa of R ear, and constipation. Printed and verbal instructions reviewed with and given to pt. Prescriptions given x 3. Pt verbalized understanding of teaching, medications, and recommended follow-up. Denies questions or concerns at this time. Pt ambulatory at discharge. Appears in no apparent distress. No ataxia noted. Desiree Ruiz [facility]6425-68-33 17:45:40 BP dropped to 87/62. Provider Courtney Lechuga notified-500 cc NS IV bolus initiated as per verbal order. Patient remains warm, dry, pink, asymptomatic. Viet Smith [place] 878044-03-17 16:48:24 Medicated as ordered with fentanyl 50 mcg IV for persitent left flank pain 01/28. On license of [facility]2024-03-17 15:07:58 Stephania San is a 52 year old female c/o dysuria x3 weeks, getting worse, also c/o fluid draining from right ear x 3 days, On license of [facility]2024-01-04 20:49:49 Pt given printed and verbal discharge [...] with steady gait, in no apparent distress. [place] 537114-01-04 19:08:17 Pt arrives ambulatory to ED reporting flu like symptoms x5 days and she says it is not improving so she came in to be seen. [facility] Sherry Tran [facility]shqbw0619-54-77 22:33:28 Pt bck from radoliogy. Spouse at bedside [facility] Lana Wood [facility] HospitalGpijtz0039-97-52 20:58:42 Pt out of bed ambulates to bathroom to void [place] 537113-12-22 18:58:53 Pt given urine cup and placed in the lobby, pt advice to notify nurse with any other concerns or if symptoms worsen. TE ATTORNEY [facility] HospitalWimulm0449-91-46 18:55:25 C/O lower back pain to the lower abd with painful urination and cloudy urine for 3 weeks. TE ATTORNEY Debbie Mcnamara [facility]Ktpkwv2843-12-17 18:47:00 [facility] Emergency Department Note Patient Name: Stephania San Date of : 1970 52 year old female Treatment Room: [place] [address] Primary Care Physician: Papito See Patient Escorted by: Self [9] Mode of Arrival: Personal means [1] EMS Treatment Prior to ED Arrival: ASSET PROTECTION LEAD treatment: Analgesic ASSET PROTECTION LEAD treatment comments: tylenol @ 1500 Travel and [...] just completed a course of Augmentin from [place] physician, her symptoms are now worse and [...] 07/06/2015 Surgeon: Hoang Leon III, MD; Location: [facility] TOTAL ABDOMINAL HYSTERECTOMY N/A 07/06/2015 Surgeon: Hoang Leon III, MD; Location: [facility] TUBAL LIGATION tubal in 1994 Review [...] GLUCOSE, BUN, CREATININE, CA) HEPATIC FUNCTION PANEL (61654) (ALB,T.PRO,BILI T,BU/BC,ALT,AST,ALK PHOS) LIPASE AC PANEL 21 [...] just completed a course of Augmentin from [place] physician, her symptoms are now worse and [...] 1 Ref Range: HPF HEPATIC FUNCTION PANEL (04110) (ALB,T.PRO,BILI T,BU/BC,ALT,AST,ALK PHOS) - Normal TOTAL BILI [...] signed by: Jose Guadalupe Campbell MD 05/11/23 3768 TE ATTORNEY [place] 426603-09-16 14:47:56 Pt given printed and verbal discharge [...] with steady gait, in no apparent distress, [place] 316763-09-16 12:48:49 Pt present to ED with c/o anahy flank pain radiating into lower abd, painful urination, and nausea since Sunday. Pt also reports a headache. [place] 316763-09-16 12:46:00 [facility] Emergency Department Note Patient Name: Stephania San Date of : 1970 52 year old female Treatment Room: [place]3/[place]3 Primary Care Physician: Papito See Patient Escorted by: Family [5] Mode of Arrival: Personal means [1] EMS Treatment Prior to ED Arrival: ASSET PROTECTION LEAD treatment: None Exam Limited by: none Travel [...] Surgeon: [facility]ang Leon III, MD; Location: [facility] [place] TUBAL LIGATION tubal in 1994 Physical Exam: ED Triage Vitals [02/03/23 1251] Weight 54.4 kg (120 lb) Actual or estimated Height 1.524 m (5') BP (!) 116/92 Pulse 84 Resp 16 Temp 37.3 ?C (99.1 ?F) Temp src SpO2 95 % Measured on Room air Physical Exam Vitals and nursing note reviewed. Exam conducted with a chicken vaccinator present (Cherelle Morales RN). Constitutional: General: She [...] 0.01 - 0.07 10*3/uL COMP. METABOLIC PANEL (51330) Collection Time: 02/03/23 1:02 PM Result Value [...] LIPASE CBC WITH DIFF COMP. METABOLIC PANEL (69812) Orders Placed This Encounter Medications ketorolac (TORADOL) [...] for colonoscopy. Return precautions given. [LS] 1409 [place] given. Will check vaginal exam. [LS] 1408 [...] 1340 LIPASE [LS] 1340 COMP. METABOLIC PANEL (67653) [LS] 1340 CBC WITH DIFF(!) [LS] ED [...] FM-FAMILY MEDICINE Relationship: PCP - General [address] [address] [facility] [address] Instructions: As needed [facility] [address], [address] [facility] [address] Instructions: for a colonoscopy to evaluate the [...] Portions of this note were completed using [employer]. Occasional phonetic or grammatical errors may escape proofreading. Electronically signed by: Maria Victoria García M.D., [facility] Associate Artistic Director Clinical Professor of Emergency Medicine 02/03/2023 12:56 PM Maria Victoria García MD 02/03/23 1440 T [facility]
[2025-01-13] MEDS ORDERED: DIPHENHYDRAMINE 50 MG/ML VIAL ONE (15:00)
[2025-01-13] MEDS ORDERED: FAMOTIDINE 20 MG/2 ML VIAL IV ONE (15:01)
[2025-01-13] MEDS ORDERED: NA CHLORIDE 0.9% 1,000 ML ONE (15:01)
[2025-01-13 15:02] LABS: Absolute Lymphocytes (CBC) 3.8 K/uL (0.7-4.9); Hematocrit 35.0 % (36.0-45.0); Hemoglobin 12.4 g/dL (12.0-15.0); MCH 31.3 pg (27.0-35.0); MCHC 35.5 g/dL (32.0-36.0); MCV 88.1 fL (80-100); MPV 6.6 fL (7.6-11.3); Nucleated RBC Absolute Count 0.0 (0-0); Nucleated Red Blood Cells % 0.3 % (0-0); RBC Red Blood Cell Count 3.97 M/uL (3.86-4.86); White Blood Count 9.10 thou/uL (4.3-10.9)
[2025-01-13 15:20] LABS: ALT/SGPT 18.0 U/L (13-56); AST/SGOT 14.0 U/L (15-37); Albumin 3.7 g/dL (3.4-5.0); Albumin/Globulin Ratio 1.2 (1.1-1.8); Alkaline Phosphatase 84.0 U/L (45-117); Anion Gap 7.6 mEq/L (5.0-15.0); BUN Blood Urea Nitrogen 14.0 mg/dL (7-18); Globulin 3.1 g/dL (2.3-3.5); Glucose Level 110.0 mg/dL (74-106); Lipase 28.0 U/L (13-75); Potassium 3.6 mEq/L (3.5-5.1)
--- NOTE | 2025-01-13 16:35 | RAD REPORT ---
EXAMINATION: CT ABDOMEN AND PELVIS WITH CONTRAST CLINICAL INDICATION: Abdominal pain TECHNIQUE: CT abdomen and pelvis was performed, after the administration of 100 cc Isovue-300.. Sagit melvin and coronal reconstructions were obtained. One or more of the following dose reduction techniques were used: Automated exposure control, adjustment of the mA and kV according to patient si ze, and iterative reconstruction. Unless otherwise specified, incidental findings do not require dedicated imaging follow-up. [id number]. Oral contrast was not given which limits evaluation of bowel and appendix. COMPARISON: .December 31, 2024 FINDINGS: 1 cm hepatic cyst. The spleen, pancreas, adrenals and kidneys appear unremarkable. Extrarenal pelves are present No evidence of diverticulitis. Fluid within nondilated small bowel. Normal appendix. Hysterectomy. No adnexal mass. : IMPRESSION: Fluid within nondilated small bowel may indicate an enteritis
--- NOTE | 2025-01-13 17:16 | ER ---
Nurse's Notes [facility] Name: Stephania Lobo Age: 54 yrs Sex: Female : 1970 Arrival Date: 01/13/2025 Time: 14:31 Bed 13 Private MD: Diagnosis: Other viral enteritis Presentation: 01/13 14:41 Chief complaint: Patient states: Abdominal pain for 1 year with N/V. Block colored ll1 stools for a couple days. Coronavirus screen: Client denies travel out of the [place] in the last 14 days. At this time, the client does not indicate any symptoms associated with coronavirus-19. Ebola Screen: Patient denies travel to an Ebola-affected area in the 21 days before illness onset. Initial Sepsis Screen: Does the patient meet any 2 criteria? No. Patient's initial sepsis screen is negative. Does the patient have a suspected source of infection? No. Patient's initial sepsis screen is negative. Risk Assessment: Do you want to hurt yourself or someone else? Patient reports no desire to harm self or others. Onset of symptoms was January 14, 2024. 14:41 Method Of Arrival: Ambulatory ll1 14:41 Acuity: ANA 3 ll1 Historical: - Allergies: 14:43 No Known Allergies; ll1 - PMHx: 14:43 Gastroesophageal reflux disease; ll1 - PSHx: 14:43 Total abdominal hysterectomy; ll1 - Immunization history:: Adult Immunizations up to date. - Infectious Disease History:: Denies. - Social history:: Smoking status: Patient denies any tobacco usage or history of. Screenin:15 [facility] ED Fall Risk Assessment (Adult) History of falling in the last 3 months, af3 including since admission No falls in past 3 months (0 pts) Confusion or Disorientation No (0 pts) Intoxicated or Sedated No (0 pts) Impaired Gait No (0 pts) Mobility Assist Device Used No (0 pt) Altered Elimination No (0 pt) Score/Fall Risk Level 0 - 2 = Low Risk. [facility] ED Fall Risk Assessment (Adult) Score/Fall Risk Level 0 - 2 = Low Risk Oriented to surroundings, Maintained a safe environment. Abuse screen: Denies threats or abuse. Denies injuries from another. Nutritional screening: No deficits noted. Tuberculosis screening: No symptoms or risk factors identified. Assessment: 15:13 General: Appears in no apparent distress. uncomfortable, well groomed, well developed, af3 Behavior is calm, cooperative, appropriate for age. Pain: Complains of pain in abdomen Quality of pain is described as burning. Neuro: Level of Consciousness is awake, alert, obeys commands, Oriented to person, place, time, situation, Appropriate for age. Cardiovascular: Patient's skin is warm and dry. Respiratory: Airway is patent is compromised Respiratory effort is even, unlabored, Respiratory pattern is regular, symmetrical. GI: Reports lower abdominal pain, upper abdominal pain, nausea, vomiting. : No signs and/or symptoms were reported regarding the genitourinary system. EENT: No signs and/or symptoms were reported regarding the EENT system. Derm: No signs and/or symptoms reported regarding the dermatologic system. Musculoskeletal: Circulation, motion, and sensation intact. Range of motion: intact in all extremities. 17:08 Reassessment: Patient appears in no apparent distress at this time. Patient and/or ph family updated on plan of care and expected duration. Pain level reassessed. Pt resting comfortably w/ eyes closed, awakens easily, continues to c/o pain. 17:39 Reassessment: Patient appears in no apparent distress at this time. Patient and/or ph family updated on plan of care and expected duration. Pain level reassessed. Patient is alert, oriented x 3, equal unlabored respirations, skin warm/dry/pink. Vital Signs: 14:41 BP 134 / 72; Pulse 79; Resp 17; Temp 97.2; Pulse Ox 99% ; Weight 54.43 kg; Height 5 ft. ll1 2 in. ; Pain 10/10; 15:14 BP 115 / 71; Pulse 63; Resp 18; Pulse Ox 98% on R/A; af3 16:00 BP 99 / 72; Pulse 62; Resp 18; Pulse Ox 99% on R/A; ph 17:07 BP 115 / 71; Pulse 64; Resp 16; Pulse Ox 100% on R/A; ph 14:41 Body Mass Index 21.95 (54.43 kg, 157.48 cm) ll1 14:41 Pain Scale: Adult ll1 ED Course: 14:34 Patient arrived in ED. al6 14:35 Gwen Talley PA-C is PHCP. sb4 14:35 Manuel Wyman MD is Attending Physician. sb4 14:43 Triage completed. ll1 14:43 Arm band placed on Patient placed in an exam room, on a stretcher. ll1 14:49 Rochelle Zapata, ELAINE is Primary Nurse. ph 14:54 Initial lab(s) drawn, by starch factory laborer, sent to lab. Inserted saline lock: 20 gauge in right ts3 antecubital area, using aseptic technique. Blood collected. Flushed with 10 mL NS. 15:16 No provider procedures requiring assistance completed. af3 15:17 Patient has correct armband on for positive identification. Bed in low position. Call af3 light in reach. Provided Education on: lab wait times, call light use . 16:10 CT Abd/Pelvis - IV Contrast Only In Process Unspecified. EDMS 17:15 Patrice Murray MD is Referral Physician. sb4 17:40 IV discontinued, intact, bleeding controlled, No redness/swelling at site. Pressure ph dressing applied. Administered Medications: 15:17 Drug: Famotidine IVP 20 mg IVP once; dilute with 10 mL 0.9% NaCl; give over 2 minutes af3 Route: IVP; Site: right antecubital; 17:39 Follow up: Response: No adverse reaction ph 15:18 Drug: NS 0.9% IV 1000 ml IV at 1 bolus Per protocol; to be given as a bolus over 60 af3 minutes Route: IV; Rate: 1 bolus; Site: right antecubital; 16:18 Follow up: Response: No adverse reaction; IV Status: Completed infusion; IV Intake: ph 1000ml 15:18 Drug: Droperidol IVP 2.5 mg IVP once Route: IVP; Site: right antecubital; af3 17:39 Follow up: Response: No adverse reaction ph 15:18 Drug: diphenhydrAMINE IVP 25 mg IVP once Route: IVP; Site: right antecubital; af3 17:39 Follow up: Response: No adverse reaction ph Medication: 15:16 VIS not applicable for this client. af3 Intake: 16:18 IV: 1000ml; Total: 1000ml. ph Outcome: 17:15 Discharge ordered by . sb4 17:40 Discharged to home ambulatory, ph 17:40 Condition: good 17:40 Discharge instructions given to patient, Instructed on discharge instructions, follow up and referral plans. Demonstrated understanding of instructions, follow-up care, 17:40 Patient left the ED. ph Signatures: Dispatcher [employer] Rochelle Angulo RN RN ph Gen Henley RN RN ll1 Gwen Talley, PAOg PAOg sb4 Mae Rizvi RN RN af3 Esmer [place]ar[place] al6 Ellie Garrett 3
--- NOTE | 2025-01-13 17:16 | EDPHYS ---
Physician Documentation [facility] Name: Stephania Lobo Age: 54 yrs Sex: Female : 1970 Arrival Date: 01/13/2025 Time: 14:31 Bed 13 Private MD: ED Physician Manuel Wyman HPI: 01/13 14:50 This 54 yrs old Female presents to ER via Ambulatory with complaints of sb4 Abdominal Pain, Nausea/Vomiting. 14:50 Patient reports abdominal pain, nausea, and vomiting for 1 year now. She has been seen sb4 here a few times for this in a negative workup, told to follow-up with GI. She did follow-up with GI few days ago, had an EGD and biopsy, was placed on ciprofloxacin, metronidazole, omeprazole, and Zofran. She was additionally told that she needed a HIDA scan. She states that her pain, nausea, and vomiting have gotten progressively worse over the past few days and she can no longer hold anything down. Historical: - Allergies: 14:43 No Known Allergies; ll1 - PMHx: 14:43 Gastroesophageal reflux disease; ll1 - PSHx: 14:43 Total abdominal hysterectomy; ll1 - Immunization history:: Adult Immunizations up to date. - Infectious Disease History:: Denies. - Social history:: Smoking status: Patient denies any tobacco usage or history of. ROS: 14:50 Constitutional: Negative for fever, chills, and weight loss, sb4 14:50 Abdomen/GI: Positive for abdominal pain, nausea and vomiting, 14:50 All other systems are negative, Exam: 14:50 Head/Face: Normocephalic, atraumatic. Eyes: Extra-ocular motions intact. Periorbital sb4 areas with no swelling, redness, or edema. ENT: Mucous membranes moist. Cardiovascular: Regular rate and rhythm with a normal S1 and S2. Respiratory: No increased work of breathing, no retractions or nasal flaring. Skin: Warm, dry with normal turgor. Normal color with no rashes, no lesions, and no evidence of cellulitis. 14:50 Constitutional: The patient appears alert, awake, uncomfortable, crying 14:50 Abdomen/GI: Inspection: abdomen appears normal, Bowel sounds: normal, Palpation: soft, mild abdominal tenderness, in all quadrants, Vital Signs: 14:41 BP 134 / 72; Pulse 79; Resp 17; Temp 97.2; Pulse Ox 99% ; Weight 54.43 kg; Height 5 ft. ll1 2 in. ; Pain 10/10; 15:14 BP 115 / 71; Pulse 63; Resp 18; Pulse Ox 98% on R/A; af3 16:00 BP 99 / 72; Pulse 62; Resp 18; Pulse Ox 99% on R/A; ph 17:07 BP 115 / 71; Pulse 64; Resp 16; Pulse Ox 100% on R/A; ph 14:41 Body Mass Index 21.95 (54.43 kg, 157.48 cm) ll1 14:41 Pain Scale: Adult ll1 MDM: 14:36 Medical Screening Exam initiated sb4 16:26 Differential diagnosis: bowel obstruction, Cholelithiasis, gastritis, GI Bleed, sb4 non-specific abd pain, pancreatitis, Peptic Ulcer Disease. Independent interpretation of the following test(s) in the Emergency Department X-Ray: My interpretation is My interpretation of the CT abdomen pelvis images is no evidence of diverticulitis, colitis, or cholecystitis. 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 17:15 Data reviewed: vital signs, nurses notes, lab test result(s), radiologic studies, and sb4 as a result, I will discharge patient. Consideration of Admission/Observation Escalation of care including admission/observation considered. Special discussion: Based on the patient's Hx, exam, and Dx evaluation, there is no indication for emergent surgery or inpatient Tx. It is understood by the patient/guardian that if the Sx's persist or worsen they need to return immediately for re-evaluation. 01/13 14:43 Order name: CBC with Diff; Complete Time: 15:17 sb4 01/13 14:43 Order name: CMP; Complete Time: 15:22 sb4 01/13 14:43 Order name: Lipase; Complete Time: 15:22 sb4 01/13 15:22 Order name: CT Abd/Pelvis - IV Contrast Only; Complete Time: 16:45 sb4 01/13 14:43 Order name: IV Saline Lock; Complete Time: 14:53 sb4 01/13 14:43 Order name: Labs collected and sent; Complete Time: 14:53 sb4 01/13 16:31 Order name: PO challenge; Complete Time: 16:51 sb4 Administered Medications: 15:17 Drug: Famotidine IVP 20 mg IVP once; dilute with 10 mL 0.9% NaCl; give over 2 minutes af3 Route: IVP; Site: right antecubital; 17:39 Follow up: Response: No adverse reaction ph 15:18 Drug: NS 0.9% IV 1000 ml IV at 1 bolus Per protocol; to be given as a bolus over 60 af3 minutes Route: IV; Rate: 1 bolus; Site: right antecubital; 16:18 Follow up: Response: No adverse reaction; IV Status: Completed infusion; IV Intake: ph 1000ml 15:18 Drug: Droperidol IVP 2.5 mg IVP once Route: IVP; Site: right antecubital; af3 17:39 Follow up: Response: No adverse reaction ph 15:18 Drug: diphenhydrAMINE IVP 25 mg IVP once Route: IVP; Site: right antecubital; af3 17:39 Follow up: Response: No adverse reaction ph Disposition: 18:27 Co-signature as Attending Physician, Manuel Wyman MD I reviewed the patient's care rn provided by the Advanced Practice Provider and agree with the diagnosis and treatment plan. Disposition Summary: 01/13/25 17:15 Discharge Ordered Notes: Location: Home sb4 Problem: an ongoing problem sb4 Symptoms: have improved sb4 Condition: Stable sb4 Diagnosis - Other viral enteritis sb4 Followup: sb4 - With: Patrice Murray MD - When: As needed - Reason: Recheck today's complaints, Re-evaluation by your physician Discharge Instructions: - Discharge Summary Sheet sb4 - Viral Gastroenteritis, Adult sb4 Forms: - Patient Portal Instructions sb4 - Leadership Thank You Letter sb4 Signatures: Dispatcher [employer] Manuel Elder MD MD rn Lewis, Lynsay, RN RN ll1 Gwen Talley PA-C PA-C sb4 Mae Riziv RN RN af3 Zapata, Rochelle RN ph Corrections: (The following items were deleted from the chart) 15:22 15:22 Abdomen Pelvis W Con+CT.RAD.BRZ ordered. EDMS EDMS
[2025-01-13 21:01] VITALS: TEMP 97.2
[2025-01-13 21:11] VITALS: BP 115/71; O2SAT 100
== END 2025-01-13 17:40 | disposition home or self-care (01) ==
LOC: ER 14:31
DX: A08.39 Other viral enteritis (principal)
CPT/HCPCS: 85025; 36415; 83690; 80053; 74177; Q9967; J1200; J1790; J7030; 96361; 96374; 96375; 99284